=== PATIENT | male | born 1950 | race Caucasian/White ===

== ENCOUNTER 2023-05-05 13:26 | Inpatient (IN) | payer MEDICARE, BC, SELFPAY ==
[2023-05-05] VITALS (79 sets, daily range): BP systolic 131–185; BP diastolic 56–102; PULSE 58–88; RESP 1–23; TEMP 36.4–36.8; O2SAT 92–100; BMI 33.0; BMI 34.7
--- NOTE | 2023-05-05 13:44 | ECG_ITS ---
[facility] Test Date: 2023-05-05 Pat Name: Brandon Mccollum Department: Room: - Gender: Male District Representative: : 1950 Requested By: HOA BRIAN Order Number: [id number] Reading MD: HOA BRIAN Measurements Intervals [place] Rate: 76 P: 30 PA: 108 QRS: 31 QRSD: 92 T: 24 QT: 382 QTc: 413 Interpretive Statements 1100 Sinus rhythm 2210 Short PA interval 9150 abnormal ECG No previous ECG available for comparison Electronically Signed On 05-06-2023 5:52:55 EDT by HOA BRIAN
--- NOTE | 2023-05-05 13:46 | ED.CHESTPAI1 ---
HPI - Chest Pain General Chief Complaint: Chest Pain Stated Complaint: SOB CHEST PAIN Time Seen by Provider: 05/05/23 13:28 Source: patient Mode of arrival: walk-in Limitations: no limitations History of Present Illness HPI narrative: patient is a 73-year-old male who presents to the emergency department for the evaluation of left anterior chest pain and shoulder pain that began this morning. He states that he took a nitroglycerin with improvement of pain and then the pain returned hour ago, he has very little pain at this time. He denies fevers, chills, upper respiratory symptoms. He denies any pain in the back. 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 he denies any peripheral edema. He states for several weeks he has had mild exertional dyspnea. He sees Dr. Barlow for cardiology. He states he quit smoking thirty years ago. He takes medications for high blood pressure, high cholesterol, he has no history of diabetes. Risk Factors Coronary artery disease risk factors: hyperlipidemia and hypertension Related Data Home Medications Medication Instructions Recorded Confirmed amlodipine 10 mg tablet mg 05/05/23 atorvastatin 40 mg tablet mg 05/05/23 fenofibrate nanocrystallized 145 mg PO 05/05/23 mg tablet irbesartan 150 mg tablet mg 05/05/23 isosorbide mononitrate 120 mg mg PO 05/05/23 tablet,extended release 24 hr metoprolol succinate 25 mg mg PO 05/05/23 tablet,extended release 24 hr omeprazole 40 mg capsule,delayed mg 05/05/23 release oxaprozin 600 mg tablet mg 05/05/23 ranolazine 500 mg tablet,extended mg PO 05/05/23 release,12 hr Allergies Allergy/AdvReac Type Severity Reaction Status Date / Time No Known Drug Allergies Allergy Verified 05/05/23 13:38 Review of Systems ROS Constitutional Denies: fever or chills Ears, nose, mouth, and throat Denies: throat pain Cardiovascular Reports: chest pain and shortness of breath with exertion Respiratory Reports: shortness of breath; Denies: cough Gastrointestinal Denies: nausea or vomiting Musculoskeletal Denies: back pain or neck pain Integumentary/Breast Denies: rash Neurological Denies: headache Endocrine Denies: excessive urination PFSH PFSH Social History Smoking status: Former smoker Exam Narrative Exam Narrative: Gen.: Awake, alert, in no distress Head: Normocephalic, atraumatic ENT: Moist mucous membranes Respiratory: No respiratory distress, lungs clear bilaterally; chest is nontender, no rashes or color change noted of the left anterior chest or shoulder Cardio: Regular rate and rhythm Gastrointestinal: Abdomen is soft, nondistended and nontender to palpation Extremities: Moves extremities equally, no pedal edema Psych: Normal mood and affect Neuro: No focal neuro deficit Skin: Warm, dry, intact Constitutional Vital Signs, click to edit/add: Last Vital Signs Temp 98.2 F 05/05/23 13:33 Pulse 69 05/05/23 14:30 Resp 16 05/05/23 13:50 BP 177/81 H 05/05/23 13:32 Pulse Ox 99 05/05/23 14:30 O2 Del Method Room Air 05/05/23 13:33 Course Vital Signs Vital signs: Vital Signs Pulse Oximetry 100 05/05/23 13:31 Temperature 98.2 F 05/05/23 13:33 Pulse Rate 69 05/05/23 14:30 Respiratory Rate 16 05/05/23 13:50 Blood Pressure 177/81 H 05/05/23 13:32 Pulse Oximetry 99 05/05/23 14:30 Oxygen Delivery Method Room Air 05/05/23 13:33 MDM - Chest Pain MDM Narrative Medical decision making narrative: patient treated with aspirin, he had no significant chest pain in the Emergency Room. He does have risk factors of obesity, age, hyperlipidemia and hypertension. His lab studies including d-dimer, troponin and BNP are within normal limits. Chest x-ray is also unremarkable. Based on his risk factors, we will admit to ICU stepdown for cardiac rule out. Discussed with Dr. Tran for admission. Medical Records Data Attestation: I reviewed the patient's medical records. Lab Data Attestation: I reviewed the patient's lab results. Labs: Lab Results 05/05/23 Range/Units 13:38 WBC 8.5 (4.0-11.0) 10^3/uL RBC 4.41 L (4.70-6.10) 10^6/uL Hgb 12.8 L (14.0-18.0) g/dL Hct 39.2 L (42.0-54.0) % MCV 88.9 (80.0-94.0) fL MCH 29.0 (25.9-34.0) pg MCHC 32.7 (29.9-35.2) g/dL RDW 13.2 (11.0-15.0) % Plt Count 258 (150-450) 10^3/uL MPV 10.0 (9.5-13.5) fL Neut % (Auto) 54.9 (43.0-75.0) % Lymph % (Auto) 29.6 (20.5-60.0) % [place] % (Auto) 9.0 (1.7-12.0) % Eos % (Auto) 5.2 (0.9-7.0) % Baso % (Auto) 0.8 (0.2-2.0) % Neut # (Auto) 4.7 (1.4-6.5) 10^3/uL Lymph # (Auto) 2.5 (1.2-3.8) 10^3/uL [place] # (Auto) 0.8 (0.3-0.8) 10^3/uL Eos # (Auto) 0.4 (0.0-0.7) 10^3/uL Baso # (Auto) 0.1 (0.0-0.1) 10^3/uL Abs Immat Gran (auto) 0.04 H (0.00-0.03) 10^3/uL Imm/Tot Granulo (auto) 0.5 (0.0-0.5) % PT 10.1 (9.0-11.6) sec INR 0.95 APTT 22.2 L (22.3-36.2) sec D-Dimer 0.37 (<=0.59) mg/L FEU Sodium 141 (136-145) mmol/L Potassium 4.1 (3.5-5.1) mmol/L Chloride 106 (98-107) mmol/L Carbon Dioxide 27.1 (21.0-32.0) mmol/L Anion Gap 12.0 BUN 12.0 (7.0-18.0) mg/dL Creatinine 1.02 (0.70-1.30) mg/dL Est GFR ( Amer) >60 (>=60) Est GFR (Non-Af Amer) >60 (>=60) BUN/Creatinine Ratio 11.8 Glucose 121 H (74-106) mg/dL Calcium 9.1 (8.5-10.1) mg/dL Total Bilirubin 0.4 (0.2-1.0) mg/dL AST 27 (15-37) U/L ALT 35 (16-63) U/L Alkaline Phosphatase 42 L (46-116) U/L Troponin I High Sens 38.9 (4.0-76.1) pg/mL NT-Pro-B Natriuret Pep 102.0 (<=900.0) pg/mL Total Protein 7.6 (6.4-8.2) g/dL Albumin 4.1 (3.4-5.0) g/dL Globulin 3.5 g/dL Albumin/Globulin Ratio 1.2 Lipase 148.0 (73.0-393.0) U/L Imaging Data Chest x-ray: Attestation: I have reviewed the pertinent imaging results. Radiologist's impression: Procedure: XR chest 1V EXAMINATION: XR chest 1V HISTORY: Chest pain , left arm pain COMPARISON: XR chest 09/02/2022 FINDINGS: LUNGS: No significant pulmonary parenchymal abnormalities. VASCULATURE: No increased pulmonary vasculature. PLEURA: No pneumothorax, effusion, or pleural thickening. CARDIAC: No cardiomegaly or cardiac silhouette abnormality. MEDIASTINUM: No visible mass or adenopathy. BONES: Left shoulder replacement. OTHER: Negative. IMPRESSION: 1. No acute cardiopulmonary process. Electronically authenticated by: MARK ANTHONY ALMONTE Date: 05/05/2023 14:45 ECG Data Attestation: I personally reviewed and interpreted this ECG as follows: (normal sinus rhythm at a rate of seventy-six, no acute ST elevation or ectopy. EKG reviewed by attending physician) ECG interpretation date: 05/05/23 ECG interpretation time: 13:51 Heart Score History: Moderatly Suspicious ECG: Normal Age: >65 years Risk Factors: >3 Risk Factors/ HX of CAD:2 Troponin: <Normal Limit Total Heart Score Recommendations & Risks:: 5 Discharge Plan Discharge Chief Complaint: Chest Pain Clinical Impression: Chest pain Patient Disposition: Admitted as Observation Time of Disposition Decision: 14:54 Condition: Good
[2023-05-05 13:51] LABS: Basophils Absolute Auto 0.1 10^3/uL (0.0-0.1); Basophils Percent Auto 0.8 % (0.2-2.0); Eosinophils Absolute Auto 0.4 10^3/uL (0.0-0.7); Eosinophils Percent Auto 5.2 % (0.9-7.0); Hematocrit 39.2 % (42.0-54.0); Hemoglobin 12.8 g/dL (14.0-18.0); Immature Granulocytes Abs Auto 0.04 10^3/uL (0.00-0.03); Immature Granulocytes Pct Auto 0.5 % (0.0-0.5); Lymphocytes Absolute Auto 2.5 10^3/uL (1.2-3.8); Lymphocytes Percent Auto 29.6 % (20.5-60.0); Mean Corpuscular HGB Conc 32.7 g/dL (29.9-35.2); Mean Corpuscular Volume 88.9 fL (80.0-94.0); Monocytes Absolute Auto 0.8 10^3/uL (0.3-0.8); Neutrophils Absolute Auto 4.7 10^3/uL (1.4-6.5); Neutrophils Percent Auto 54.9 % (43.0-75.0); Platelet Count 258 10^3/uL (150-450); Red Blood Count 4.41 10^6/uL (4.70-6.10); Red Cell Distribution Width 13.2 % (11.0-15.0); White Blood Count 8.5 10^3/uL (4.0-11.0)
[2023-05-05] MEDS: ASPIRIN 81 MG TAB.CHEW 162 MG PO (14:02)
[2023-05-05 14:03] LABS: Alanine Aminotransferase 35 U/L (16-63); Albumin Globulin Ratio 1.2; Albumin Level 4.1 g/dL (3.4-5.0); Alkaline Phosphatase 42 U/L (46-116); Aspartate Amino Transferase 27 U/L (15-37); BUN Creatinine Ratio 11.8; Bilirubin Total 0.4 mg/dL (0.2-1.0); Calcium 9.1 mg/dL (8.5-10.1); Carbon Dioxide 27.1 mmol/L (21.0-32.0); Chloride 106 mmol/L (98-107); Estimated GFR (African America >60 (>=60); Estimated GFR (Non-African Ame >60 (>=60); Globulin 3.5 g/dL; Glucose 121 mg/dL (74-106); Potassium 4.1 mmol/L (3.5-5.1); Sodium 141 mmol/L (136-145); Total Protein 7.6 g/dL (6.4-8.2)
[2023-05-05 14:07] LABS: D Dimer 0.37 mg/L FEU (<=0.59); INR 0.95; Partial Thromboplastin Time 22.2 sec (22.3-36.2); Prothrombin Time 10.1 sec (9.0-11.6)
[2023-05-05 14:09] LABS: Troponin I High Sensitivity 38.9 pg/mL (4.0-76.1)
--- NOTE | 2023-05-05 14:14 | XR_ITS ---
The [address] [address] Patient Name: KARLA CUENCA MRN: [id number] date: 1950 Sex: M Assigned Patient Location: ER Current Patient Location: ED.MAIN Accession/Order Number: [id number] Exam Date: 05/05/2023 14:28 Report Date: 05/05/2023 14:45 At the request of: MARII STEPHEN Procedure: XR chest 1V EXAMINATION: XR chest 1V HISTORY: Chest pain , left arm pain COMPARISON: XR chest 09/02/2022 FINDINGS: LUNGS: No significant pulmonary parenchymal abnormalities. VASCULATURE: No increased pulmonary vasculature. PLEURA: No pneumothorax, effusion, or pleural thickening. CARDIAC: No cardiomegaly or cardiac silhouette abnormality. MEDIASTINUM: No visible mass or adenopathy. BONES: Left shoulder replacement. OTHER: Negative. XR/XR chest 1V IMPRESSION: 1. No acute cardiopulmonary process. Electronically authenticated by: MARK ANTHONY ALMONTE Date: 05/05/2023 14:45
--- NOTE | 2023-05-05 17:13 | CA_ITS ---
Patient: KARLA CUENCA Exam Date: 05/06/2023 : 1950 Gender:M Ordering : DR HOA BRIAN . Admission #: [id number] Family : DR BHANU VILLASENOR M.D. Order #: [id number] CLICK HERE TO VIEW EXAM ECHOCARDIOGRAM REPORT PROCEDURE: CA ECHO DOPPLER COMPLETE INDICATIONS: Dyspnea COMPARISON: None. DESCRIPTION: COMPLETE ECHOCARDIOGRAM Real-time transthoracic echocardiography with 2D, M-mode, spectral and color flow Doppler performed. QUALITY: Technical quality was good. LEFT VENTRICLE: Normal chamber size. Moderate concentric left ventricular hypertrophy. LV EF: Global left ventricular systolic function is normal. Visual estimation of left ventricular ejection fraction is 60-65% DIASTOLIC: Normal diastolic function. ATRIAL SEPTUM: Inadequately seen. LEFT ATRIUM: Moderate dilatation. RIGHT ATRIUM: Moderate dilatation. RIGHT VENTRICLE: Mild dilatation. Normal right ventricular systolic function. TRICUSPID VALVE: Normal mobility and thickness. No stenosis with mild regurgitation. Mild pulmonary hypertension. RVSP 43mmHg MITRAL VALVE: Normal mobility and thickness. No evidence of mitral valve stenosis. There is no mitral annular calcification. Trivial mitral regurgitation. AORTIC VALVE: Normal trileaflet appearance. Thickened aortic valve. Focal aortic cusp calcification. Normal leaflet mobility. No evidence of aortic valve stenosis. No aortic regurgitation. AORTIC ROOT: Normal diameter and appearance. Calcific plaque seen in the ascending aorta. PULMONIC VALVE: Normal thickness and mobility. No stenosis. No regurgitation. PERICARDIUM: Anterior free space; trivial effusion versus fat pad. IVC: Collapses with inspirations. Mildly dilated measuring 2.4cm. CONCLUSION: 1. Global left ventricular systolic function is normal; visually estimated ejection fraction is 60 to 65% 2. Moderately increased left ventricular wall thickness 3. Moderate biatrial enlargement 4. The right ventricle is mildly dilated with normal systolic function 5. Mild tricuspid regurgitation; mildly elevated right ventricular systolic pressure 6. Anterior free space; trivial effusion versus fat pad Adult Echocardiography Procedure Report Left Ventricle LVEDD (3.7 - 5.6 cm): 4.47 cm LVESD (2.2 - 4.0 cm): 2.90 cm LVIVS thickness (0.6 - 1.2 cm): 1.37 cm LVPW thickness (0.5 - 1.0 cm): 1.33 cm e': 0.10 m/s E - e': 10.55 LVOT Max Gradient: 4.17 mm[Hg] LVOT Area (cm2): 1.02 m/s Peak Velocity (LVOT): 1.02 m/s Mean Velocity (LVOT): 0.67 m/s LVOT Diameter 1.96 cm Left Atrium LA Volume Index (2D A2C): 50.88 ml/m2 Left Atrium Systolic Dimension: 4.84 cm Mitral Valve MV E to A Ratio: 0.91 Mitral Valve A-Wave Peak Velocity: 1.17 m/s Mitral Valve E-Wave Peak Velocity: 1.06 m/s Right Ventricle RV Internal Diastolic Dimension: 3.97 cm Aorta AO Root Diam: 3.50 cm Ascending Ao Diam: 3.20 cm Aortic Valve AoV Area (Peak Jabari): 1.94 cm2, 1.94 cm2 AoV Area (VTI): 2.21 cm2, 2.21 cm2 Peak Velocity(Antegrade Flow): 1.59 m/s Peak Gradient(Antegrade Flow): 10.16 mm[Hg] Mean Velocity(Antegrade Flow): 1.05 m/s Mean Gradient(Antegrade Flow): 5.04 mm[Hg] Velocity Time Integral: 36.59 cm Tricuspid Valve Peak Velocity (Regurgitant Flow): 2.24 m/s, 2.96 m/s Pulmonic Valve Mean Gradient: 4.15 mm[Hg], 4.42 mm[Hg] Mean Velocity: 0.96 m/s, 0.99 m/s Peak Velocity: 1.38 m/s Peak Gradient: 7.41 mm[Hg], 7.91 mm[Hg] Right Atrium Right Atrium Systolic Pressure: 69.85 ml, 69.85 ml Dictated by: Bhanu Villasenor M.D. on 05/06/2023 at 16:23 Approved by: Bhanu Villasenor M.D. on 05/06/2023 at 16:28
[2023-05-05 17:45] LABS: Troponin I High Sensitivity 48.5 pg/mL (4.0-76.1)
--- NOTE | 2023-05-05 18:48 | P.HP_ITS ---
H&P: HPI History of Present Illness Chief complaint: SOB, CHEST PAIN Narrative: Patient with known coronary vascular anomaly-has had episodes of chest pain and shortness of breath in the past. Cardiac cath 2 years ago was clear, he had a significant episode of this a year ago and was placed on Ranexa and the Imdur. Symptoms are currently gone. Patient was admitted for work-up and treatment of same Review of Systems ROS Status of ROS 10 or more systems reviewed and unremarkable except as noted in history and below [facility] Medical History (Updated 05/05/23 @ 16:14 by Stephanie Hand) Surgical History (Updated 05/05/23 @ 16:14 by Stephanie Hand) Family History (Updated 05/05/23 @ 16:15 by Stephanie Hand) Mother Family history of cancer Family history of hypertension Family history of diabetes mellitus Father Family history of cancer Family history of hypertension Family history of diabetes mellitus Social History (Updated 05/05/23 @ 16:16 by Stephanie Hand) Within the past year, how often did you have a drink containing alcohol: 2-4 times a month Smoking status: Former smoker Meds Home Medications and Allergies Home Medications Medication Instructions Recorded Confirmed Type amlodipine 10 mg tablet 10 mg PO QDAY 05/05/23 05/05/23 History atorvastatin 40 mg tablet 40 mg PO QDAY 05/05/23 05/05/23 History fenofibrate nanocrystallized 145 145 mg PO QDAY 05/05/23 05/05/23 History mg tablet irbesartan 150 mg tablet 150 mg PO QDAY 05/05/23 05/05/23 History isosorbide mononitrate 120 mg 120 mg PO QDAY 05/05/23 05/05/23 History tablet,extended release 24 hr metoprolol succinate 25 mg 25 mg PO QDAY 05/05/23 05/05/23 History tablet,extended release 24 hr omeprazole 40 mg capsule,delayed 40 mg PO QDAY 05/05/23 05/05/23 History release oxaprozin 600 mg tablet 600 mg PO BID 05/05/23 05/05/23 History ranolazine 500 mg tablet,extended 500 mg PO Q12H 05/05/23 05/05/23 History release,12 hr Allergies Allergy/AdvReac Type Severity Reaction Status Date / Time No Known Drug Allergies Allergy Verified 05/05/23 13:38 Exam Constitutional Vital Signs, click to edit/add: Last Vital Signs Temp 98.2 F 05/05/23 13:33 Pulse 74 05/05/23 17:36 Resp 21 05/05/23 16:20 BP 162/102 H 05/05/23 16:18 Pulse Ox 98 05/05/23 15:57 O2 Del Method Room Air 05/05/23 17:12 Documenting provider has reviewed patient's vital signs: yes Common normals: no apparent distress Respiratory Common normals: normal respiratory effort, no retractions and no use of accessor y muscles Cardio Common normals: regular rate, regular rhythm and no murmurs GI Common normals: Normal to inspection, nondistended, normoactive bowel sounds present, soft to palpation, non-tender and no masses Results Labs Labs: Short CBC 05/05/23 Range/Units 13:38 WBC 8.5 (4.0-11.0) 10^3/uL Hgb 12.8 L (14.0-18.0) g/dL Hct 39.2 L (42.0-54.0) % Plt Count 258 (150-450) 10^3/uL BMP 05/05/23 13:38 Sodium 141 Potassium 4.1 Chloride 106 Carbon Dioxide 27.1 BUN 12.0 Creatinine 1.02 Glucose 121 H Calcium 9.1 Liver Function 05/05/23 Range/Units 13:38 Total Bilirubin 0.4 (0.2-1.0) mg/dL AST 27 (15-37) U/L ALT 35 (16-63) U/L Alkaline Phosphatase 42 L (46-116) U/L Albumin 4.1 (3.4-5.0) g/dL Assessment and Plan Assessment and Plan (1) Chest pain: (2) High cholesterol: (3) HTN (hypertension): (4) Sleep apnea: Plan Controlled hypertension, chest pain, pressure type, similar to when he has had his flareup of his vascular anomaly. Plan was to increase Ranexa at that time and if it happens again. As well increase Ranexa to 1000 mg p.o. twice daily continue with home medications. Check echocardiogram, check with cardiology in a.m. pending troponin results. Hypercholesterolemia-continue with home medications Hypertension-continue home medications, increase metoprolol succinate to try to improve angina GERD-continue with home medications Patient currently in observation status, pending outcome of troponins and plan from cardiology will remain so for tonight possible change in a.m.
[2023-05-05] MEDS: PANTOPRAZOLE SODIUM 40 MG VIAL IV (20:59)
[2023-05-05] MEDS: RANOLAZINE 500 MG TAB.ER.12H 1000 MG PO (20:59)
[2023-05-05] MEDS: DIPHENHYDRAMINE HCL 25 MG CAPSULE PO (21:02)
[2023-05-05] MEDS: ACETAMINOPHEN 500 MG TABLET 1000 MG PO (21:02)
[2023-05-05] MEDS: HYDRALAZINE HCL 20 MG/ML VIAL 10 MG IVP (22:07)
[2023-05-05] MEDS: NITROGLYCERIN 0.4 MG BOTTLE PO (22:32)
[2023-05-06] VITALS (123 sets, daily range): BP systolic 122–188; BP diastolic 68–92; PULSE 54–80; RESP 0–42; TEMP 36.3–36.7; O2SAT 96–99
[2023-05-06 05:42] LABS: Basophils Absolute Auto 0.1 10^3/uL (0.0-0.1); Basophils Percent Auto 0.8 % (0.2-2.0); Eosinophils Absolute Auto 0.5 10^3/uL (0.0-0.7); Eosinophils Percent Auto 5.6 % (0.9-7.0); Hematocrit 35.8 % (42.0-54.0); Hemoglobin 11.5 g/dL (14.0-18.0); Immature Granulocytes Abs Auto 0.06 10^3/uL (0.00-0.03); Immature Granulocytes Pct Auto 0.7 % (0.0-0.5); Lymphocytes Absolute Auto 2.6 10^3/uL (1.2-3.8); Lymphocytes Percent Auto 30.8 % (20.5-60.0); Mean Corpuscular HGB Conc 32.1 g/dL (29.9-35.2); Mean Corpuscular Hemoglobin 28.9 pg (25.9-34.0); Mean Corpuscular Volume 89.9 fL (80.0-94.0); Monocytes Absolute Auto 0.8 10^3/uL (0.3-0.8); Monocytes Percent Auto 9.8 % (1.7-12.0); Neutrophils Absolute Auto 4.4 10^3/uL (1.4-6.5); Neutrophils Percent Auto 52.3 % (43.0-75.0); Platelet Count 236 10^3/uL (150-450); Red Blood Count 3.98 10^6/uL (4.70-6.10); Red Cell Distribution Width 13.1 % (11.0-15.0); White Blood Count 8.4 10^3/uL (4.0-11.0)
[2023-05-06 06:12] LABS: Anion Gap 11.4; BUN Creatinine Ratio 11.9; Calcium 8.5 mg/dL (8.5-10.1); Carbon Dioxide 26.5 mmol/L (21.0-32.0); Chloride 108 mmol/L (98-107); Estimated GFR (African America >60 (>=60); Estimated GFR (Non-African Ame >60 (>=60); Glucose 112 mg/dL (74-106); Potassium 3.9 mmol/L (3.5-5.1); Sodium 142 mmol/L (136-145)
[2023-05-06] MEDS: OMEPRAZOLE 40 MG CAPSULE.DR PO (06:34)
--- NOTE | 2023-05-06 07:40 | P.PN_ITS ---
Progress Note: Subjective Subjective Interval history: Patient did have another episode of chest pain that was resolved with sublingual nitroglycerin, but that was only couple hours after the increased dose of the Ranexa Exam Constitutional Vital Signs, click to edit/add: Last Vital Signs Temp 97.4 F L 05/06/23 07:38 Pulse 57 L 05/06/23 06:04 Resp 18 05/06/23 04:12 BP 150/77 H 05/06/23 04:12 Pulse Ox 99 05/06/23 04:12 O2 Del Method Room Air 05/05/23 20:22 Documenting provider has reviewed patient's vital signs: yes Common normals: no apparent distress Respiratory Common normals: normal respiratory effort, no retractions and no use of accessory muscles Cardio Common normals: regular rate, regular rhythm and no murmurs GI Common normals: Normal to inspection, nondistended, normoactive bowel sounds present, soft to palpation, non-tender and no masses Progress Note: Objective Labs Labs: Short CBC 05/05/23 05/06/23 Range/Units 13:38 05:15 WBC 8.5 8.4 (4.0-11.0) 10^3/uL Hgb 12.8 L 11.5 L (14.0-18.0) g/dL Hct 39.2 L 35.8 L (42.0-54.0) % Plt Count 258 236 (150-450) 10^3/uL BMP 05/05/23 05/06/23 13:38 05:15 Sodium 141 142 Potassium 4.1 3.9 Chloride 106 108 H Carbon Dioxide 27.1 26.5 BUN 12.0 14.0 Creatinine 1.02 1.18 Glucose 121 H 112 H Calcium 9.1 8.5 Liver Function 05/05/23 Range/Units 13:38 Total Bilirubin 0.4 (0.2-1.0) mg/dL AST 27 (15-37) U/L ALT 35 (16-63) U/L Alkaline Phosphatase 42 L (46-116) U/L Albumin 4.1 (3.4-5.0) g/dL Progress Note: A&P Assessment and Plan (1) Chest pain: (2) High cholesterol: (3) HTN (hypertension): (4) Sleep apnea: Plan Uncontrolled hypertension, chest pain, pressure type, similar to when he has had his flareup of his vascular anomaly. Increased Ranexa and metoprolol, already on maximum dose Imdur, will discuss with cardiology, either maintain here 1 additional day versus transfer for heart cath, patient will need inpatient status if staying here an additional day, Hypercholesterolemia-continue with home medications Hypertension-continue home medications, increase metoprolol succinate to try to improve angina GERD-continue with home medications Patient currently in observation status, pending outcome of troponins and plan from cardiology will remain so for tonight possible change in a.m.
[2023-05-06] MEDS: RANOLAZINE 500 MG TAB.ER.12H 1000 MG PO ×2 (09:08→20:15)
[2023-05-06] MEDS: FENOFIBRATE 54 MG TABLET 162 MG PO (09:08)
[2023-05-06] MEDS: NEOMYCIN/POLYMYXIN B/HYDROCORTISONE OTIC SUSP 200 DROP/10 ML BOTTLE EAR-LEFT ×4 (09:09→21:07)
[2023-05-06] MEDS: LOSARTAN POTASSIUM 50 MG TABLET PO ×2 (09:09→20:15)
[2023-05-06] MEDS: METOPROLOL SUCCINATE 50 MG TAB.ER.24H PO (09:09)
[2023-05-06] MEDS: ISOSORBIDE MONONITRATE 60 MG TAB.ER.24H 120 MG PO (09:09)
[2023-05-06] MEDS: AMLODIPINE BESYLATE 5 MG TABLET 10 MG PO (09:09)
--- NOTE | 2023-05-06 14:22 | SWNOTE1 ---
SW met with pt to discuss dc needs. Pt lives at home with his . Pt was sitting in chair and dressed. Pt is independent and does not use any DME at home. Pt voiced no needs at discharge at this time. SW to follow as needed. THONY did review IMM form with pt, pt voiced understanding, no questions at this time. Pt signed form, copy placed in chart and original given to pt.
[2023-05-06] MEDS: PANTOPRAZOLE SODIUM 40 MG VIAL IV (20:15)
[2023-05-06] MEDS: ATORVASTATIN CALCIUM 40 MG TABLET PO (20:15)
[2023-05-06] MEDS: DIPHENHYDRAMINE HCL 25 MG CAPSULE PO (21:05)
[2023-05-06] MEDS: ACETAMINOPHEN 500 MG TABLET 1000 MG PO (21:05)
[2023-05-07] VITALS (51 sets, daily range): BP systolic 97–147; BP diastolic 49–80; PULSE 52–90; RESP 0–23; TEMP 36.7; O2SAT 98–99
[2023-05-07 05:21] LABS: Basophils Absolute Auto 0.1 10^3/uL (0.0-0.1); Basophils Percent Auto 0.8 % (0.2-2.0); Eosinophils Absolute Auto 0.5 10^3/uL (0.0-0.7); Hematocrit 33.9 % (42.0-54.0); Hemoglobin 10.9 g/dL (14.0-18.0); Immature Granulocytes Abs Auto 0.07 10^3/uL (0.00-0.03); Immature Granulocytes Pct Auto 0.7 % (0.0-0.5); Lymphocytes Absolute Auto 3.1 10^3/uL (1.2-3.8); Lymphocytes Percent Auto 32.1 % (20.5-60.0); Mean Corpuscular HGB Conc 32.2 g/dL (29.9-35.2); Mean Corpuscular Volume 90.2 fL (80.0-94.0); Mean Platelet Volume 10.2 fL (9.5-13.5); Monocytes Absolute Auto 0.9 10^3/uL (0.3-0.8); Monocytes Percent Auto 8.9 % (1.7-12.0); Neutrophils Absolute Auto 5.1 10^3/uL (1.4-6.5); Neutrophils Percent Auto 52.5 % (43.0-75.0); Platelet Count 236 10^3/uL (150-450); Red Blood Count 3.76 10^6/uL (4.70-6.10); Red Cell Distribution Width 13.2 % (11.0-15.0); White Blood Count 9.7 10^3/uL (4.0-11.0)
[2023-05-07 05:54] LABS: Anion Gap 12.5; BUN Creatinine Ratio 13.3; Calcium 8.3 mg/dL (8.5-10.1); Carbon Dioxide 25.5 mmol/L (21.0-32.0); Chloride 106 mmol/L (98-107); Estimated GFR (African America >60 (>=60); Estimated GFR (Non-African Ame 52 (>=60); Glucose 109 mg/dL (74-106); Sodium 140 mmol/L (136-145)
--- NOTE | 2023-05-07 07:52 | P.DS_ITS ---
DS: Providers Provider Date of admission: 05/05/23 15:47 Primary care physician: Carlo Tran MD Consults: 05/05/23 17:13 Consult to Cardiology Routine Consulting Provider: Willy Villasenor Reason for consultation: cp Has provider been notified: No DS: Diagnosis Discharge Diagnosis (1) Chest pain: (2) High cholesterol: (3) HTN (hypertension): (4) Sleep apnea: Plan Uncontrolled hypertension, chest pain, pressure type, similar to when he has had his flareup of his vascular anomaly. Increased Ranexa and metoprolol, already on maximum dose Imdur, will discuss with cardiology, either maintain here 1 additional day versus transfer for heart cath, patient will need inpatient status if staying here an additional day, Hypercholesterolemia-continue with home medications Hypertension-continue home medications, increase metoprolol succinate to try to improve angina GERD-continue with home medications DS: Summary Hospital Course Hospital Course: Patient with chest pain. 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 He had a heart catheter essentially clear 2 years ago. Case was discussed with cardiology and was recommended to change his Ranexa and increased his metoprolol. Patient still having minor episodes of chest pain. Again case discussed with cardiology was comfortable with discharge and follow-up as an outpatient. Patient being stable will be discharged home in improving condition. Medications see list. Follow-up with me in the office wit mikhail the next week and cardiology within 1 to 2 weeks Time Spent with Patient Time attestation: Total time spent providing and/or coordinating discharge services: Quality: Stroke Symptom Onset Unknown: No Exam Constitutional Vital Signs, click to edit/add: Last Vital Signs Temp 98.0 F 05/07/23 01:10 Pulse 55 L 05/07/23 07:00 Resp 16 05/07/23 01:10 BP 105/63 05/07/23 01:10 Pulse Ox 98 05/07/23 01:10 O2 Del Method Room Air 05/07/23 01:10 Documenting provider has reviewed patient's vital signs: yes Common normals: no apparent distress Respiratory Common normals: normal respiratory effort, no retractions and no use of accessory muscles Cardio Common normals: regular rate, regular rhythm and no murmurs GI Common normals: Normal to inspection, nondistended, normoactive bowel sounds present, soft to palpation, non-tender and no masses DS: Data Data Completed and Pending Labs on day of discharge: Labs from last 24 hours 05/07/23 05:08 WBC 9.7 RBC 3.76 L Hgb 10.9 L Hct 33.9 L MCV 90.2 MCH 29.0 MCHC 32.2 RDW 13.2 Plt Count 236 MPV 10.2 Neut % (Auto) 52.5 Lymph % (Auto) 32.1 [place] % (Auto) 8.9 Eos % (Auto) 5.0 Baso % (Auto) 0.8 Neut # (Auto) 5.1 Lymph # (Auto) 3.1 [place] # (Auto) 0.9 H Eos # (Auto) 0.5 Baso # (Auto) 0.1 Abs Immat Gran (auto) 0.07 H Imm/Tot Granulo (auto) 0.7 H Sodium 140 Potassium 4.0 Chloride 106 Carbon Dioxide 25.5 Anion Gap 12.5 BUN 18.0 Creatinine 1.35 H Est GFR ( Amer) >60 Est GFR (Non-Af Amer) 52 L BUN/Creatinine Ratio 13.3 Glucose 109 H Calcium 8.3 L NT-Pro-B Natriuret Pep 93.0 Discharge Plan Discharge Disposition: Home, Self-Care Condition: Good Discharge Medications: New metoprolol succinate 50 mg Tablet Extended Release 24 Hr 50 mg PO QD Qty: 30 11RF ranolazine 1,000 mg tablet extended release 12 hr 1,000 mg PO Q12H Qty: 60 11RF nitroglycerin [Nitrostat] 0.4 mg tablet, sublingual 0.4 mg sublingual Q5M MDD 3 PRN (Reason: chest pain) Qty: 20 11RF Rx Instructions: do not exceed 3 doses per episode Continued atorvastatin 40 mg tablet 40 mg PO QDAY omeprazole 40 mg capsule,delayed release(DR/EC) 40 mg PO QDAY isosorbide mononitrate 120 mg tablet extended release 24 hr 120 mg PO QDAY irbesartan 150 mg tablet 150 mg PO QDAY oxaprozin 600 mg tablet 600 mg PO BID fenofibrate nanocrystallized 145 mg tablet 145 mg PO QDAY amlodipine 10 mg tablet 10 mg PO QDAY Discontinued metoprolol succinate 25 mg tablet extended release 24 hr 25 mg PO QDAY ranolazine 500 mg tablet extended release 12 hr 500 mg PO Q12H Activity: resume usual activities as tolerated Diet: advance to your usual diet Print Language: Cypriot Patient Instructions: Metoprolol (By mouth), Ranolazine (By mouth), Chest Pain (GEN) Forms: Portal Instructions Follow Up Appointments: Dr Tran May 14 2023 @0915 Discharge Date/Time: 05/07/23 08:35
[2023-05-07] MEDS: ISOSORBIDE MONONITRATE 60 MG TAB.ER.24H 120 MG PO (08:00)
[2023-05-07] MEDS: METOPROLOL SUCCINATE 50 MG TAB.ER.24H PO (08:01)
[2023-05-07] MEDS: FENOFIBRATE 54 MG TABLET 162 MG PO (08:01)
[2023-05-07] MEDS: LOSARTAN POTASSIUM 50 MG TABLET PO (08:01)
[2023-05-07] MEDS: RANOLAZINE 500 MG TAB.ER.12H 1000 MG PO (08:01)
[2023-05-07] MEDS: AMLODIPINE BESYLATE 5 MG TABLET 10 MG PO (08:02)
--- NOTE | 2023-05-10 14:50 | CM.DCFOLLOWU ---
1st attempt discharge follow up call made by Key Harper on 05/10/23, no answer at this time
--- NOTE | 2023-05-11 15:40 | CM.DCFOLLOWU ---
Person spoke with: patient How are you feeling? well How is your pain? no pain, some yesterday but called Dr. Tran and he advised to continue meds Did you understand your discharge instructions? yes Do you have any questions about your discharge instructions? no Were you given any prescriptions at discharge? yes Were you able to get your prescriptions filled? yes Do you understand how to take your medications as ordered? yes Do you have any questions about your follow up appointment and do you plan to keep your follow up appointment? no questions, follow up is Wednesday Is there anything else that you would like to discuss? no Questions/Comments/Concerns/Other:
== END 2023-05-07 08:35 | disposition home or self-care (01) | DRG 307 ==
LOC: ER 14:54 → ICU 15:51
PROVIDERS: Physician Assistant; Admitting Provider Family Medicine; Emergency Provider Emergency Medicine; PCP Family Medicine; Visit Provider Family Medicine
DX: Q24.5 Malformation of coronary vessels (principal); I20.0 Unstable angina; E78.00 Pure hypercholesterolemia, unspecified; I10 Essential (primary) hypertension; K21.9 Gastro-esophageal reflux disease without esophagitis; E66.9 Obesity, unspecified; Z79.899 Other long term (current) drug therapy; Z83.3 Family history of diabetes mellitus; Z82.49 Family history of ischemic heart disease and other diseases of the circulatory system; Z87.891 Personal history of nicotine dependence; Z68.34 Body mass index [BMI] 34.0-34.9, adult
CPT/HCPCS: 36415; 71045; 80048; 80053; 83690; 83880; 84484; 85025; 85378; 85610; 85730; 93005; 93306; 94667; 94668; 94761; 96374; 96375; 96376; 99285

== ENCOUNTER 2023-05-15 07:45 | Outpatient (OUT) | payer MEDICARE, BC, SELFPAY ==
[2023-05-15 08:10] LABS: Estimated Average Glucose 120 mg/dL; Glycohemoglobin A1C 5.8 % (4.5-6.2)
[2023-05-15 09:02] LABS: Prostate Specific Antigen Scrn 0.91 ng/mL (<=4.00)
[2023-05-15 11:17] LABS: Chol HDL Ratio 3.9; Cholesterol 155 mg/dL (<=200); Free T3 2.35 pg/mL (2.18-3.98); HDL Cholesterol 40 mg/dL (40-60); LDL Cholesterol Calculated 85.2 mg/dL; Thyroid Stimulating Hormone 3.798 uIU/mL (0.358-3.740); Triglycerides 149 mg/dL (<=150); VLDL CHOLESTEROL 29.8 mg/dL
== END 2023-05-15 07:46 | disposition home or self-care (01) ==
PROVIDERS: PCP Family Medicine; Visit Provider Family Medicine
DX: E78.5 Hyperlipidemia, unspecified (principal); R73.09 Other abnormal glucose; Z12.5 Encounter for screening for malignant neoplasm of prostate; I20.1 Angina pectoris with documented spasm; D50.9 Iron deficiency anemia, unspecified; I10 Essential (primary) hypertension
CPT/HCPCS: 36415; 80061; 83036; 84436; 84443; 84481; G0103

== ENCOUNTER 2023-06-16 06:54 | Outpatient (OUT) | payer MEDICARE, BC, SELFPAY ==
[2023-06-16 07:57] LABS: Free T3 2.27 pg/mL (2.18-3.98); Thyroid Stimulating Hormone 3.472 uIU/mL (0.358-3.740)
== END 2023-06-16 06:55 | disposition home or self-care (01) ==
LOC: LAB 06:56
PROVIDERS: PCP Family Medicine; Visit Provider Family Medicine
DX: R79.89 Other specified abnormal findings of blood chemistry (principal)
CPT/HCPCS: 36415; 84436; 84443; 84481

== ENCOUNTER 2023-12-03 10:59 | Outpatient (OUT) | payer MEDICARE, BC, SELFPAY ==
--- NOTE | 2023-12-03 11:04 | US_ITS ---
The [address] [address] Patient Name: KARLA CUENCA MRN: [id number] date: 1950 Sex: M Assigned Patient Location: [place] Current Patient Location: Accession/Order Number: [id number] Exam Date: 12/03/2023 11:05 Report Date: 12/05/2023 05:17 At the request of: HOA BRIAN Procedure: US thyroid EXAMINATION: US thyroid HISTORY: Neck Mass R22.1 COMPARISON: No relevant comparison available. FINDINGS: RIGHT LOBE: Heterogeneous echotexture containing a 11 mm TR 5 nodule within inferior pole. Lobe size: 5.1 x 2.0 x 1.5 cm. LEFT LOBE: Heterogeneous echotexture containing multiple small nodules, most notable to consist of a 12 mm TR 4 nodule within inferior pole and a 5 mm TR 4 nodule within mid body. Lobe size: 4.3 x 2.0 x 1.6 cm ISTHMUS: Heterogeneous and mildly thickened. Thickness: 4 mm OTHER: Oval, slightly geographic shaped lesion within upper left neck/submental area corresponding to patient's palpable lump, 1.9 x 1.0 x 0.8 cm. No appreciable internal blood flow on color Doppler. US/US thyroid IMPRESSION: 1. Nonspecific 1.9 cm lesion within upper left neck/submental area corresponding to patient's palpable lump. Consider ultrasound-guided fine-needle aspiration. 2. Within right thyroid lobe is 11 mm TR 5 nodule. Ultrasound-guided tissue sampling is recommended. TR5 (highly suspicious): > 0.5 cm annual ultrasound follow-up for up to 5 years. > 1.0 cm FNA. Electronically authenticated by: MARK ANTHONY ALMONTE Date: 12/05/2023 05:17
== END 2023-12-03 11:00 | disposition home or self-care (01) ==
LOC: US 10:59
PROVIDERS: PCP Family Medicine; Visit Provider Family Medicine
DX: R22.1 Localized swelling, mass and lump, neck (principal)
CPT/HCPCS: 76536

== ENCOUNTER 2023-12-15 08:58 | Day surgery (SDC) | payer MEDICARE, BC, SELFPAY ==
--- NOTE | 2023-12-15 09:07 | US_ITS ---
The [address] [address] Patient Name: KARLA CUENCA MRN: [id number] date: 1950 Sex: M Assigned Patient Location: US Current Patient Location: US Accession/Order Number: [id number] Exam Date: 12/15/2023 09:08 Report Date: 12/15/2023 11:13 At the request of: HOA BRIAN Procedure: US biopsy thyroid EXAMINATION: US biopsy thyroid, US biopsy FNA add lesion HISTORY: Thyroid Nodule , submandibular mass COMPARISON: No relevant comparison available. TECHNIQUE: After obtaining informed consent, an ultrasound-guided biopsy was performed in the usual sterile manner. RIGHT THYROID NODULE FINDINGS: IMAGING: Ultrasound BIOPSY NEEDLE: 2 inch 25-gauge SPECIMEN TYPE, #, LOCATION: Unsuccessful, right thyroid nodule MEDICATION: 4 cc 1% buffered lidocaine COMPLICATIONS: None. LABORATORY: Not sent OTHER: This is an unsuccessful biopsy due to a combination of the targeted nodule being very deep along the posterior margin of the thyroid gland, proximity of the right carotid artery adjacent to the targeted nodule and patient breathing and swallowing resulting in significant movement. Multiple attempts were made without success, eventually the procedure was terminated to prevent laceration to the adjacent carotid artery. MIDLINE SUBMANDIBULAR MASS: FINDINGS: IMAGING: Ultrasound BIOPSY NEEDLE: 2 inch, 25-gauge SPECIMEN TYPE, #, LOCATION: 3 fine-needle aspirates, submandibular mass MEDICATION: 2 cc 1% buffered lidocaine COMPLICATIONS: None. LABORATORY: Samples were sent for pathology OTHER: Negative. US/US biopsy thyroid IMPRESSION: 1. Unsuccessful biopsy of a right thyroid nodule as detailed above. This lesion is not amenable to ultrasound-guided biopsy. 6 month follow-up ultrasound is recommended to the patient to ensure stability 2. Technically successful fine-needle aspiration of a submandibular mass Electronically authenticated by: BISMARK REDD Date: 12/15/2023 11:13
[2023-12-15 09:30] VITALS: BP 154/80; PULSE 74; O2SAT 98
--- NOTE | 2023-12-15 10:00 | US_ITS ---
The [address] [address] Patient Name: KARLA CUENCA MRN: [id number] date: 1950 Sex: M Assigned Patient Location: US Current Patient Location: US Accession/Order Number: [id number] Exam Date: 12/15/2023 09:08 Report Date: 12/15/2023 11:13 At the request of: HOA BRIAN Procedure: US biopsy FNA add lesion EXAMINATION: US biopsy thyroid, US biopsy FNA add lesion HISTORY: Thyroid Nodule , submandibular mass COMPARISON: No relevant comparison available. TECHNIQUE: After obtaining informed consent, an ultrasound-guided biopsy was performed in the usual sterile manner. RIGHT THYROID NODULE FINDINGS: IMAGING: Ultrasound BIOPSY NEEDLE: 2 inch 25-gauge SPECIMEN TYPE, #, LOCATION: Unsuccessful, right thyroid nodule MEDICATION: 4 cc 1% buffered lidocaine COMPLICATIONS: None. LABORATORY: Not sent OTHER: This is an unsuccessful biopsy due to a combination of the targeted nodule being very deep along the posterior margin of the thyroid gland, proximity of the right carotid artery adjacent to the targeted nodule and patient breathing and swallowing resulting in significant movement. Multiple attempts were made without success, eventually the procedure was terminated to prevent laceration to the adjacent carotid artery. MIDLINE SUBMANDIBULAR MASS: FINDINGS: IMAGING: Ultrasound BIOPSY NEEDLE: 2 inch, 25-gauge SPECIMEN TYPE, #, LOCATION: 3 fine-needle aspirates, submandibular mass MEDICATION: 2 cc 1% buffered lidocaine COMPLICATIONS: None. LABORATORY: Samples were sent for pathology OTHER: Negative. US/US biopsy FNA add lesion IMPRESSION: 1. Unsuccessful biopsy of a right thyroid nodule as detailed above. This lesion is not amenable to ultrasound-guided biopsy. 6 month follow-up ultrasound is recommended to the patient to ensure stability 2. Technically successful fine-needle aspiration of a submandibular mass Electronically authenticated by: BISMARK REDD Date: 12/15/2023 11:13
[2023-12-15] MEDS: LIDOCAINE HCL 10 ML, SODIUM BICARBONATE 1 MEQ INJ (10:15)
--- NOTE | 2023-12-15 11:26 | SUR.PREOP ---
12/09/23 Pt instructed on procedure, date, time,and prep. Pt made aware to hold Aspirin for 5 days prior to biopsy.
== END 2023-12-15 10:55 | disposition home or self-care (01) ==
LOC: US 08:59
PROVIDERS: Radiology Diagnostic Radiology; PCP Family Medicine; Visit Provider Family Medicine
DX: E04.1 Nontoxic single thyroid nodule (principal); R22.1 Localized swelling, mass and lump, neck
CPT/HCPCS: 10005; 10006; 88112

== ENCOUNTER 2023-12-16 06:32 | Outpatient (OUT) | payer MEDICARE, BC, SELFPAY ==
--- OUTSIDE RECORDS SUMMARY | 2023-12-16 06:35 | XMS_ITS | CCD ---
Author Organization [facility] Care Team Providers Care Pipefitter Name Role Phone HOA TRAN Primary Care Unavailable UNKNOWN, PROVIDER Referring Unavailable GRISELDA, HANI Admitting Unavailable GRISELDA, BOBBII Attending Unavailable [place] Procedure Practitioner Unavailab le UNKNOWN, PROVIDER Surgeon Unavailable SNEHAL ., DR CAMARA Primary Care Unavailable DIAB ., KWADWO Admitting Unavailable DIAB ., KWADWO Attending Unavailable Bismark Redd Consulting Unavailable DIAB ., KWADWO Consulting Unavailable MOUKARBEL, DR QUINTEROS Admitting Unavailable MOUKARBEL, DR QUINTEROS Attending Unavailable HOY ., DR CAMARA Primary Care Unavailable MOUKARBEL, DR QUINTEROS Consulting Unavailable HOY ., DR CAMARA Admitting Unavailable HOY ., DR CAMARA Attending Unavailable HOY ., DR CAMARA Primary Care Unavailable HOY ., DR CAMARA Consulting Unavailable Bismark [employer]d Consulting Unavailable MOUKAKELLY, NELI Attending Unavailable BRANDON MICHAEL Attending Unavailable MOUKARBEL, NELI Attending Unavailable KAMRAN GUILLEN Attending Unavailable Problems Active Problems Problem Classification Problem Date Documented Date Episodic/Chronic 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; 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] Onset: 11-23-2022 Chronic Coronary atherosclerosis and other heart disease (5 sources) Coronary atherosclerosis due to lipid rich plaque; Translations: [Angina pectoris with documented spasm] Onset: 12-18-2021 Chronic Disorders of lipid metabolism (7 sources) Mixed hyperlipidemia; Translations: [Pure hypercholesterolemia, unspecified] Onset: 09-03-2022 Chronic Esophageal disorders (1 source) Gastro-esophageal reflux disease without esophagitis; Translations: [GERD WITHOUT ESOPHAGITIS] Onset: 09-03-2022 Chronic Essential hypertension (3 sources) Essential (primary) hypertension; Translations: [ESSENTIAL PRIMARY HYPERTENSION] Onset: 09-03-2022 Chronic Other aftercare (1 source) manager terminal (current) use of aspirin; Translations: [DETENTION CURRENT USE OF ASPIRIN] Onset: 09-03-2022 Episodic Other aftercare (1 source) Other intermediate (current) drug therapy; Translations: [OTH BIZTALK CONSULTANT CURRENT DRUG THERAPY] Onset: 09-03-2022 Episodic Residual codes; unclassified (1 source) Sleep apnea, unspecified; Translations: [SLEEP APNEA UNSPECIFIED] Onset: 09-03-2022 Chronic Residual codes; unclassified (1 source) Acquired absence of other specified parts of digestive tract; Translations: [ACQ ABSENCE OTH PART DIGESTV TRACT] Onset: 09-03-2022 Episodic Unclassified (1 source) CONTACT W/AND (SUSP) EXPOS COVID-19; Translations: [CONTACT W/AND (SUSP) EXPOS COVID-19] Onset: 09-03-2022 Unclassified (2 sources) ED f/u chest pain Onset: 09-04-2022 Past or Other Problems Problem Classification Problem Date Documented Da te Episodic/Chronic Nonspecific chest pain (6 sources) Chest pain, unspecified; Translations: [Other chest pain] Onset: 09-02-2022 Episodic Other lower respiratory disease (4 sources) Dyspnea, unspecified; Translations: [DYSPNEA UNSPECIFIED] Onset: 12-17-2021 Episodic Results Test Name Value Interpretation Reference Range Facility Office Visiton 06-18-2023 Follow-up visit [id number] aKrla Mccollum 1950 M Date Provider Department Center 06/18/2023 NELI THRASHER VERA Antony Family History Problem Relation Age of Onset Hypertension Mother Family Status - Relation Status Age at Mother Level of Service:24134 [place] OFFICE/OUTPATIENT ESTABLISHED MOD MDM 30-39 MIN Normal [facility] Orders Onlyon 12-01-2022 Orders Only [id number] Karla Mccollum 1950 M Date Provider Department Center 12/01/2022 JAIME QUINTANA VERA Antony Family History Problem Relation Age of Onset Hypertension Mother Family Status - Relation Status Age at Mother Normal [facility] LIPID PROFILEon 11-24-2022 CHOL-HDL RATIO NORM SEE BELOW [facility] Comment on above: Result Comment: 3.3 - 4.4 LOW RISK 4.4 - 7.1 AVERAGE RISK 7.1 - 11.0 MODERATE RISK >11.0 HIGH RISK Performed By: #### L IPID #### [facility] [address] [address] [address] Paige Tee Cholesterol [Mass/Vol] 151 mg/dL Normal <=200 [facility] Comment on above: Performed By: #### L IPID #### [facility] [address] [address] [address] Paige Tee Cholesterol in HDL [Mass/Vol] 40 mg/dL Normal 40-60 [facility] Comment on above: Performed By: #### L IPID #### [facility] [address] [address] [address] Paige Tee Cholesterol in LDL [Mass/Vol] 87.4 mg/dL Normal [facility] Comment on above: Performed By: #### L IPID #### [facility] [address] [address] [address] Paige Tee Cholesterol.total/C holesterol in HDL [Mass ratio] 3.8 {ratio} Normal [facility] Comment on above: Performed By: #### L IPID #### [facility] [address] [address] [address] Paige Tee HDL NORMAL > or = 60 mg/dl - LO W CARDIOVASCULAR RISK <40 mg/dl - HIGH CARDIOVASCULAR RISK Normal [facility] Comment on above: Performed By: #### L IPID #### [facility] [address] [address] [address] Paige Tee LDL CALC NORMAL SEE BELOW Normal [facility] Comment on above: Result Comment: <100 mg/dl OPTIMAL 100 - 129 mg/dl NEAR OR ABOVE OPTIMAL 130 - 159 mg/dl BORDERLINE HIGH 160 - 189 mg/dl HIGH >190 mg/dl VERY HIGH Performed By: #### L IPID #### [facility] [address] [address] [address] Paige Tee Triglyceride [Mass/Vol] 118 mg/dL Normal <=150 [facility] Comment on above: Performed By: #### L IPID #### [facility] [address] [address] [address] Paige Tee VLDL CALC 23.6 mg/dL Normal [facility] Comment on above: Performed By: #### L IPID #### [facility] [address] [place] [address] Dr. Paige Tee Office Visiton 11-23-2022 Follow-up visit [id number] Karla Mccollum 1950 M Date Provider Department Center 11/23/2022 NELI THRASHER CARD [facility] Family History Problem Relation Age of Onset Hypertension Mother Family Status - Relation Status Age at Mother Level of Service:35238 [place] OFFICE/OUTPATIENT ESTABLISHED MOD MDM 30-39 MIN Reason for Visit and Comments: Chest Pain [819646] Coronary Artery Disease [187] Normal [facility] Office Visiton 09-04-2022 Follow-up visit [id number] Karla Mccollum 1950 M Date Provider Department Center 09/04/2022 BRANDON ALICEA CARD [facility] No family history on file Level of Service:52948 [place] OFFICE/OUTPATIENT ESTABLISHED MOD MDM 30-39 MIN Reason for Visit and Comments: ED f/u chest pain [Other] Chest Pain [218211] Normal [facility] CBC AUTO DIFFon 09-02-2022 BASO # 0.1 103/ul Normal 0.0-0.1 [facility] Comment on above: Performed By: #### C BC #### [facility] [address] [place] [address] Dr. Paige Tee Basophils/100 WBC (Bld) 0.6 % Normal 0.2-2.0 [facility] Comment on above: Performed By: #### C BC #### [facility] [address] [place] [address] Dr. Paige Tee EO # 0.4 103/ul Normal 0.0-0.7 [facility] Comment on above: Performed By: #### C BC #### [facility] [address] [place] [address] Dr. Paige Tee Eosinophils/100 WBC (Bld) 4.0 % Normal 0.9-7.0 [facility] Comment on above: Performed By: #### C BC #### [facility] [address] [place] [address] Dr. Paige Tee Erythrocyte distribution width (RBC) [Ratio] 13.8 % Normal 11.0-15.0 [facility] Comment on above: Performed By: #### C BC #### [facility] [address] [place] [address] Dr. Paige Tee Hematocrit (Bld) [Volume fraction] 35.9 % Critically low 42.0-54.0 [facility] Comment on above: Performed By: #### C BC #### [facility] [address] [place] [address] Dr. Paige Tee Hemoglobin (Bld) [Mass/Vol] 11.9 g/dL Critically low 14.0-18.0 [facility] Comment on above: Performed By: #### C BC #### [facility] [address] [place] [address] Dr. Paige Tee IG # 0.04 10e3/ul Critically high 0.00-0.03 [facility] Comment on above: Performed By: #### C BC #### [facility] [address] [place] [address] Dr. Paige Tee IG % 0.4 % Normal 0.0-0.5 [facility] Comment on above: Performed By: #### C BC #### [facility] [address] [place] [address] Dr. Paige Tee LYMPH # 3.2 103/ul Normal 1.2-3.8 [facility] Comment on above: Performed By: #### C BC #### [facility] [address] [place] [address] Dr. Paige Tee Lymphocytes/100 WBC (Bld) 30.0 % Normal 20.5-60.0 [facility] Comment on above: Performed By: #### C BC #### [facility] [address] [place] [address] Dr. Paige Tee MANUAL DIFF REQ NO Normal [facility] Comment on above: Performed By: #### C BC #### [facility] [address] [place] [address] Dr. Paige Tee MCH (RBC) [Entitic mass] 27.9 pg Normal 25.9-34.0 [facility] Comment on above: Performed By: #### C BC #### [facility] [address] [place] [address] Dr. Paige Tee MCHC (RBC) [Mass/Vol] 33.1 g/dL Normal 29.9-35.2 [facility] Comment on above: Performed By: #### C BC #### [facility] [address] [place] [address] Dr. Paige Tee MCV (RBC) [Entitic vol] 84.3 fL Normal 80.0-94.0 [facility] Comment on above: Performed By: #### C BC #### [facility] [address] [place] [address] Dr. Paige Tee MONO # 0.8 103/ul Normal 0.3-0.8 [facility] Comment on above: Performed By: #### C BC #### [facility] [address] [place] [address] Dr. Paige Tee Monocytes/100 WBC (Bld) 7.5 % Normal 1.7-12.0 [facility] Comment on above: Performed By: #### C BC #### [facility] [address] [place] [address] Dr. Paige Tee NEUT # 6.2 103/ul Normal 1.4-6.5 [facility] Comment on above: Performed By: #### C BC #### [facility] [address] [place] [address] Dr. Paige Tee Neutrophils/100 WBC (Bld) 57.5 % Normal 43.0-75.0 [facility] Comment on above: Performed By: #### C BC #### [facility] [address] [place] [address] Dr. Paige Tee Platelet mean volume (Bld) [Entitic vol] 9.5 fL Normal 9.5-13.5 [facility] Comment on above: Performed By: #### C BC #### [facility] [address] [address] [address] Paige Tee PLT 314 103/ul Normal 150-450 [facility] Comment on above: Performed By: #### C BC #### [facility] [address] [place] [address] Dr. Paige Tee RBC 4.26 106/ul Critically low 4.70-6.10 [facility] Comment on above: Performed By: #### C BC #### [facility] [address] [address] [address] Paige Tee WBC 10.8 103/ul Normal 4.0-11.0 [facility] Comment on above: Performed By: #### C BC #### [facility] [address] [place] [address] Dr. Paige Tee Covid-19 PCR (CVDTB)on 08-16 SARS-CoV-2 (COVID-19) RNA UMER+probe Ql (Unsp spec) Not detected Normal NOT DETECTED [facility] Comment on above: Result Comment: When diagnostic testing is negative, the possibility of a false negative should be considered in the context of a patient's recent exposures and the presence of clinical signs and symptoms consistent with SARS-CoV-2. This test is not yet approved or cleared by the [place] FDA. When there are no FDA-approved or cleared tests available, and other criteria are met, FDA can make tests available under an emergency access mechanism called an Emergency Use Authorization (EUA). The EUA for this test is supported by the [place] of Health and Human Service's declaration that circumstances exist to justify the emergency use of in vitro diagnostics for the detection and/or diagnosis of the virus that causes COVID-19. This EUA will remain in effect for the duration of the COVID-19 declaration justifying emergency of IVDs, unless it is terminated or revoked by the FDA (after which the test may no longer be used). Performed By: #### C VDTBH #### [facility] [address] [place] [address] Dr. Paige Tee PROF CHEM 8 (BAS METB)on Anion gap [Moles/Vol] 13.7 mmol/L Normal [facility] Comment on above: Performed By: #### H STROPN, BMP #### [facility] [address] [place] [address] Dr. Paige Tee Calcium [Mass/Vol] 9.1 mg/dL Normal 8.5-10.1 [facility] Comment on above: Performed By: #### H STROPN, BMP #### [facility] [address] [place] [address] Dr. Paige Tee Chloride [Moles/Vol] 104 mmol/L Normal 98-107 [facility] Comment on above: Performed By: #### H STROPN, BMP #### [facility] [address] [place] [address] Dr. Paige Tee CO2 [Moles/Vol] 24.4 mmol/L Normal 21.0-32.0 [facility] Comment on above: Performed By: #### H STROPN, BMP #### [facility] [address] [place] [address] Dr. Paige Tee Creatinine [Mass/Vol] 1.11 mg/dL Normal 0.70-1.30 [facility] Comment on above: Performed By: #### H STROPN, BMP #### [facility] [address] [place] [address] Dr. Paige Tee EGFR-AF SALVADOREAN >60 Normal >=60 [facility] Comment on above: Performed By: #### H STROPN, BMP #### [facility] [address] [place] [address] Dr. Paige Tee EGFR-NON AF SALVADOREAN >60 Normal >=60 [facility] Comment on above: Performed By: #### H STROPN, BMP #### [facility] [address] [place] [address] Dr. Paige Tee Glucose [Mass/Vol] 115 mg/dL Critically high 74-106 [facility] Comment on above: Performed By: #### H STROPN, BMP #### [facility] [address] [place] [address] Dr. Paige Tee Potassium [Moles/Vol] 4.1 mmol/L Normal 3.5-5.1 [facility] Comment on above: Performed By: #### H ANJUPN, BMP #### [facility] [address] [place] [address] Dr. Paige Tee Sodium [Moles/Vol] 138 mmol/L Normal 136-145 [facility] Comment on above: Performed By: #### H ANJUPN, BMP #### [facility] [address] [place] [address] Dr. Paige Tee Urea nitrogen [Mass/Vol] 20.0 mg/dL Critically high 7.0-18.0 [facility] Comment on above: Performed By: #### H ANJUPN, BMP #### [facility] [address] [place] [address] Dr. Paige Tee Urea nitrogen/Creatinine [Mass ratio] 18.0 mg/mg Normal [facility] Comment on above: Performed By: #### H TAMMI, BMP #### [facility] [address] [place] [address] Dr. Paige Tee TROPONIN, HIGH SENSITIVITYon 09-02-2022 HSTROP 4.1 pg/mL Normal 4.0-76.1 [facility] Comment on above: Result Comment: CUT- OFF POINTS HAVE BEEN ESTABLISHED BASED ON THE FOURTH UNIVERSAL DEFINITIONS OF MYOCARDIAL INFARCTION. THE UPPER REFERENCE LIMIT (URL) OF TROPONIN, DEFINED THE 99TH PERCENTILE OF cTnI DISTRIBUTION IN A REFERENCE POPULATION, HAS BEEN CONFIRMED THE DECISION THRESHOLD FOR LA DIAGNOSIS. Performed By: #### H ANJUPN #### [facility] [address] [place] [address] Dr. Paige Tee HSTROP 4.5 pg/mL Normal 4.0-76.1 [facility] Comment on above: Result Comment: CUT- OFF POINTS HAVE BEEN ESTABLISHED BASED ON THE FOURTH UNIVERSAL DEFINITIONS OF MYOCARDIAL INFARCTION. THE UPPER REFERENCE LIMIT (URL) OF TROPONIN, DEFINED THE 99TH PERCENTILE OF cTnI DISTRIBUTION IN A REFERENCE POPULATION, HAS BEEN CONFIRMED THE DECISION THRESHOLD FOR LA DIAGNOSIS. Performed By: #### H STROPN, BMP #### [facility] [address] [place] [address] Dr. Paige Tee XR CHEST 1 Von 09-02-2022 XR CHEST 1 V EXAMINATION: XR CHES T 1 V HISTORY: CHEST PAIN, UNSPECIFIED COMPARISON: 10/08/2020 TECHNIQUE: AP portable FINDINGS: LUNGS: No significant pulmonary parenchymal abnormalities. VASCULATURE: No increased pulmonary vasculature. PLEURA: No pneumothorax, effusion, or pleural thickening. CARDIAC: No cardiomegaly or cardiac silhouette abnormality. MEDIASTINUM: No visible mass or adenopathy. BONES: No fracture or visible bone lesion. Left humeral head arthroplasty OTHER: Negative. IMPRESSION: No acute disease. Electronically authenticated by: BISMARK REDD Date: 2022-09-02 12:29 Normal [facility] NM STRESS/REST MULTIon 12-17 NM STRESS/REST MULTI Patient: KARLA MCCOLLUM Exam Date: 12/17/2021 : 1950 Gender:M Ordering : DR HOA TRAN . Admission #: [id number] Family : Order #: [id number] CLICK HERE TO VIEW EXAM RADIOLOGY REPORT PROCEDURE: RADIONUCLIDE IMAGING STRESS/REST MULTI COMPARISON: NM STRESS/REST MULTI, 09/01/2019. NM STRESS/REST MULTI, 01/27/2016. INDICATIONS: Dyspnea, coronary artery disease TECHNIQUE: Exam Description: Stress/Rest one day protocol gated SPECT Rest Imagin.1 mCi Tc-99m Cardiolite IV on 12/17/2021 Stress Imaging 30.1 mCi Tc-99m Cardiolite IV on 12/17/2021 Exercise Protocol: 0.4 mg Lexiscan given IV Heart Rate (bpm): Rest: 63 Max: 85 PMHR: 56 Blood Pressure: Rest: 124/72 Max: 126/64 Symptoms: Rest and peak stress ECG findings were normal and the exercise portion of the study was normal per attending physician Dr. Villasenor . For more details please see separate cardiac stress test report. FINDINGS: QUALITY OF STUDY: Good. PERFUSION DEFECT: LOCATION: Basal inferior. Mid-inferior. Apical inferior. SIZE: Medium (3-4 segments). SEVERITY: Moderate. TYPE: Persistent. WALL MOTION: Normal. LV SIZE: Normal. 39 mL. TID / TCD: None; 0.9 LVEF: Normal. Calculated EF 64%. SUMMARY: Myocardial perfusion imaging study has ABNORMAL findings. CONCLUSION: 1. Fixed defect inferior wall 2. No reversible ischemia 3. Normal exercise test Dictated by: Bismark Redd MD on 12/18/2021 at 09:06 Approved by: Bismark Redd MD on 12/18/2021 at 09:10 Normal [facility] BASIC METABOLIC PANELon 09-17 Calcium [Mass/Vol] 8.9 mg/dL Normal 8.6-10.3 [facility] Comment on above: Order Comment: No: D o not add to previous draw Performed By: #### 0 0071 #### [facility] [address] [place] [address], [place] Chloride [Moles/Vol] 105 mmol/L Normal 98-107 [facility] Comment on above: Order Comment: No: D o not add to previous draw Performed By: #### 0 0071 #### [facility] [address] [place] [address], [place] CO2 [Moles/Vol] 25 mmol/L Normal 21-[address] [facility] Comment on above: Order Comment: No: D o not add to previous draw Performed By: #### 0 0071 #### [facility] [address] [place] [address], [place] Creatinine [Mass/Vol] 0.82 mg/dL Normal 0.70-1.30 [facility] Comment on above: Order Comment: No: D o not add to previous draw Performed By: #### 0 0071 #### [facility] [address] [place] [address], [place] GFR/1.73 sq M predicted among blacks MDRD (S/P/Bld) [Vol rate/Area] mL/min/{1.73_m2} Normal >60 [facility] Comment on above: Order Comment: No: D o not add to previous draw Performed By: #### 0 0071 #### [facility] [address] [place] [address], [place] GFR/1.73 sq M predicted among non-blacks MDRD (S/P/Bld) [Vol rate/Area] mL/min/{1.73_m2} Normal >60 [facility] Comment on above: Order Comment: No: D o not add to previous draw Performed By: #### 0 0071 #### [facility] [address] [place] [address], [place] Glucose [Mass/Vol] 104 mg/dL High 70-100 [facility] Comment on above: Order Comment: No: D o not add to previous draw Performed By: #### 0 0071 #### [facility] [address] [place] [address], [place] Potassium [Moles/Vol] 3.6 mmol/L Normal 3.5-5.1 [facility] Comment on above: Order Comment: No: D o not add to previous draw Performed By: #### 0 0071 #### [facility] [address] [place] [address], [place] Sodium [Moles/Vol] 137 mmol/L Normal 136-145 [facility] Comment on above: Order Comment: No: D o not add to previous draw Performed By: #### 0 0071 #### [facility] [address] [place] [address], [place] Urea nitrogen [Mass/Vol] 13 mg/dL Normal 7-25 [facility] Comment on above: Order Comment: No: D o not add to previous draw Performed By: #### 0 0071 #### [facility] [address] [place] [address], [place] CBC COMPLETE BLOOD COUNTon 0 - Erythrocyte distribution width (RBC) [Ratio] 13.1 % Normal 11.5-15.0 [facility] Comment on above: Order Comment: No: D o not add to previous draw Performed By: #### 3 [id number] #### [facility] [address] [place] [address], [place] Hematocrit (Bld) [Volume fraction] 36.6 % Low 39.0-50.0 [facility] Comment on above: Order Comment: No: D o not add to previous draw Performed By: #### 3 [id number] #### [facility] [address] [place] [address], [facility] Hemoglobin (Bld) [Mass/Vol] 11.6 g/dL Low 13.0-17.0 [facility] Comment on above: Order Comment: No: D o not add to previous draw Performed By: #### 3 5200 #### [facility] [address] [place] [id number], [facility] MCH (RBC) [Entitic mass] 28.1 pg Normal 27.0-33.0 [facility] Comment on above: Order Comment: No: D o not add to previous draw Performed By: #### 3 [id number] #### [facility] [address] [place] [place] [address], [facility] MCHC (RBC) [Mass/Vol] 31.7 g/dL Low 32.0-35.0 The [facility] Comment on above: Order Comment: No: D o not add to previous draw Performed By: #### 3 5200 #### [facility] [address] [place] [address], [facility] MCV (RBC) [Entitic vol] 88.6 fL Normal 82.0-98.0 [facility] Comment on above: Order Comment: No: D o not add to previous draw Performed By: #### 3 5200 #### [facility] [address] [place] [address], [facility] Nucleated RBC/100 WBC (Bld) [Ratio] 0 % Normal 0-0 [facility] Comment on above: Order Comment: No: D o not add to previous draw Performed By: #### 3 5200 #### [facility] [address] [place] [id number], [facility] PLAT CNT 289 10*3/uL Normal 150-400 [facility] Comment on above: Order Comment: No: D o not add to previous draw Performed By: #### 3 5200 #### [facility] [address] [place] [address], [place] RBC (Bld) [#/Vol] 4.13 10*6/uL Low 4.20-5.70 [facility] Comment on above: Order Comment: No: D o not add to previous draw Performed By: #### 3 5200 #### [facility] [address] [place] [address], [place] WBC (Bld) [#/Vol] 10.27 10*3/uL Normal 4.00-10.60 [facility] Comment on above: Order Comment: No: D o not add to previous draw Performed By: #### 3 5200 #### [facility] [address] [place] [address], [place] BASIC METABOLIC PANELon 02-2 Calcium [Mass/Vol] 9.2 mg/dL Normal 8.6-10.3 [facility] Comment on above: Order Comment: No: D o not add to previous draw Performed By: #### 0 0071 #### [facility] [address] [place] [address], [place] Chloride [Moles/Vol] 106 mmol/L Normal 98-107 [facility] Comment on above: Order Comment: No: D o not add to previous draw Performed By: #### 0 0071 #### [facility] [address] [place] [address], [place] CO2 [Moles/Vol] 27 mmol/L Normal 21-31 [facility] Comment on above: Order Comment: No: D o not add to previous draw Performed By: #### 0 0071 #### [facility] [address] [place] [address], [place] Creatinine [Mass/Vol] 0.84 mg/dL Normal 0.70-1.30 [facility] Comment on above: Order Comment: No: D o not add to previous draw Performed By: #### 0 0071 #### [facility] [address] [place] [address], [place] GFR/1.73 sq M predicted among blacks MDRD (S/P/Bld) [Vol rate/Area] mL/min/{1.73_m2} Normal >60 [facility] Comment on above: Order Comment: No: D o not add to previous draw Performed By: #### 0 0071 #### [facility] [address] [place] [address], [place] GFR/1.73 sq M predicted among non-blacks MDRD (S/P/Bld) [Vol rate/Area] mL/min/{1.73_m2} Normal >60 [facility] Comment on above: Order Comment: No: D o not add to previous draw Performed By: #### 0 0071 #### [facility] [address] [place] [address], [place] Glucose [Mass/Vol] 101 mg/dL High 70-100 [facility] Comment on above: Order Comment: No: D o not add to previous draw Performed By: #### 0 0071 #### [facility] [address] [place] [address], [place] Potassium [Moles/Vol] 3.8 mmol/L Normal 3.5-5.1 [facility] Comment on above: Order Comment: No: D o not add to previous draw Performed By: #### 0 0071 #### [facility] [address] [place] [address], [place] Sodium [Moles/Vol] 139 mmol/L Normal 136-145 [facility] Comment on above: Order Comment: No: D o not add to previous draw Performed By: #### 0 0071 #### [facility] [address] [place] [address], [facility] Urea nitrogen [Mass/Vol] 15 mg/dL Normal 7-25 [facility] Comment on above: Order Comment: No: D o not add to previous draw Performed By: #### 0 0071 #### [facility] [address] [place] [id number], [facility] CBC COMPLETE BLOOD COUNTon 10-11-2020 Erythrocyte distribution width (RBC) [Ratio] 12.9 % Normal 11.5-15.0 [facility] Comment on above: Order Comment: No: D o not add to previous draw Performed By: #### 3 5200 #### [facility] [address] [place] [address], [facility] Hematocrit (Bld) [Volume fraction] 38.6 % Low 39.0-50.0 [facility] Comment on above: Order Comment: No: D o not add to previous draw Performed By: #### 3 5200 #### [facility] [address] [place] [address], [facility] Hemoglobin (Bld) [Mass/Vol] 12.3 g/dL Low 13.0-17.0 [facility] Comment on above: Order Comment: No: D o not add to previous draw Performed By: #### 3 5200 #### [facility] [address] [place] [address], [facility] MCH (RBC) [Entitic mass] 28.5 pg Normal 27.0-33.0 [facility] Comment on above: Order Comment: No: D o not add to previous draw Performed By: #### 3 5200 #### [facility] [address] [place] [address], [facility] MCHC (RBC) [Mass/Vol] 31.9 g/dL Low 32.0-35.0 [facility] Comment on above: Order Comment: No: D o not add to previous draw Performed By: #### 3 5200 #### [facility] [address] [place] [address], [facility] MCV (RBC) [Entitic vol] 89.6 fL Normal 82.0-98.0 [facility] Comment on above: Order Comment: No: D o not add to previous draw Performed By: #### 3 5200 #### [facility] [address] [address], [facility] Nucleated RBC/100 WBC (Bld) [Ratio] 0 % Normal 0-0 [facility] Comment on above: Order Comment: No: D o not add to previous draw Performed By: #### 3 5200 #### [facility] [address] [place] [address], [facility] PLAT CNT 279 10*3/uL Normal 150-400 [facility] Comment on above: Order Comment: No: D o not add to previous draw Performed By: #### 3 5200 #### [facility] [address] [place] [address], [facility] RBC (Bld) [#/Vol] 4.31 10*6/uL Normal 4.20-5.70 [facility] Comment on above: Order Comment: No: D o not add to previous draw Performed By: #### 3 5200 #### [facility] [address] [place] [address], [facility] WBC (Bld) [#/Vol] 10.25 10*3/uL Normal 4.00-10.60 [facility] Comment on above: Order Comment: No: D o not add to previous draw Performed By: #### 3 5200 #### [facility] [address] [place] [address], [facility] CTA HEART-CORONARY/ ARTERY B YPASS GRAFT WITH 3DPPon 10-11-2020 CTA HEART-CORONARY/ ARTERY BYPASS GRAFT WITH 3DPP [facility] Department of Radiology [address] [place] [address] [id number] Patient Name: KARLA MCCOLLUM : 1950 Sex: M Age: Race: White Pt. 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 CONTRAST: Contrast: OMNIPAQUE 350 (LOCM), 100 milliliter, Intravenous TECHNIQUE: Multidetector CT angiogram was obtained using prospective ECG gating. Imaging was performed from the level of the clavicles to the level of the hemidiaphragms. In order to provide better evaluation of the anatomy and disease process, advanced off-line 3-D post-processing techniques. Medication administered in preparation for the examination located in nursing documentation. All CT scans at this facility use dose modulation, iterative reconstruction, and/or weight based dosing when appropriate to reduce radiation dose to as low as reasonably achievable. COMPARISON: Coronary catheter report performed previous day CORONARY ARTERY ANGIOGRAM FINDINGS: Stenoses are reported as maximum percentage diameter stenosis. Stenosis grading is reported using the following scheme: Normal: no stenosis Mild: 1-49% stenosis Moderate: 50-70% stenosis Severe: >70% stenosis Occluded There is right coronary dominance with posterior lateral and posterior descending branches well visualized. There is a high takeoff of the left main coronary artery just above the cusp. After the left main there is not a normal appearing LAD. Small branches extending to marginal and ramus distribution. Small caliber but otherwise normal-appearing circumflex and marginal branches. There is a normal origin of the right coronary artery. Immediately medial to the right coronary artery a 1 to 2 mm vessel originates and courses towards the intraventricular septum with poor visibility in the myocardium. This vessel then becomes more visible at the periphery of the myocardium and ultimately emerges and descends along the myocardium primarily within marginal distribution. There are additional branches that emerge and it would be difficult to characterize some of the distribution as septal, marginal or diminutive LAD distribution. Vessels of this size are often poorly resolved on CT. A normal normal distribution LAD is not visualized. There is minimal atherosclerotic disease of the right left coronary arteries. Coronary artery scoring was not performed. Ejection fraction not calculated per protocol. Normal heart size. No pericardial effusion. EXTRACARDIAC FINDINGS: Lungs are clear of active disease. 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 A small branch appears to extend along the marginal and LAD distribution but is only seen for a short course. A normal distribution LAD is not seen from the left coronary artery. Therefore it is presumed that a combination of branches supply the LAD distribution that are not well delineated on this exam. * High take off of left main coronary artery superior margin of the cusp. * No significant coronary artery disease otherwise. Electronically signed: Asa Hill. 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 E MR #: [id number] Department of Physician: [facility] Justin Stern M.D. Division of Service Date: 10/10/2020 Cardiology Birthdate: 1950 Adult Cardiovascular Room #: 3AB [id number] [place] [address] [address] [place] [address] Cardiovascular Laboratory Report INDICATION: The patient is a 70-year-old man who was admitted with unstable angina. He was referred for cardiac catheterization. PROCEDURES: 1. Access into the right radial artery with right radial angiography. 2. Bilateral selective coronary angiography from the right femoral access. 3. Limited right common femoral angiography. 4. Access into the right common femoral artery under ultrasound guidance. 5. Administration of intracoronary nitroglycerin. METHODS: Procedure was explained to the patient with risks and benefits. He signed informed consent. He was brought to cath lab nurse in a fasting state. The right wrist area was prepped and draped in usual fashion. Modified Satnam's test was favorable on the right. Access in the right radial artery was obtained using micropuncture technique. A 6-Cuban x 11 cm Hydrophilic sheath was advanced, verapamil was given through the sheath and heparin was administered intravenously. Initial advancement of the Pickard J-tipped wire proved difficult around the brachial area. Therefore, we advanced an angled glide wire over which a straight tapered catheter could not advance completely. Therefore, the wire was retracted. The straight tapered catheter was used to perform right radial angiography. This showed evidence of the right radial loop that caused inability to advance catheters. Therefore this access site was abandoned. A TR band was used for hemostasis in the right radial artery. The right groin area was prepped and draped in usual fashion. Using micropuncture technique, access was obtained in the right common femoral artery under ultrasound guidance. Limited right common femoral angiography using the inner cannula showed access at an adequate location, this was upsized to a 6-Cuban x 11 cm sheath. Bilateral selective coronary angiography was then performed using 6-Cuban JL3.5 and JR4 diagnostic catheters. 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 Angiography was performed. Catheter was removed. Procedure was concluded. The patient tolerated the procedure well. He was transferred to the cardiovascular recovery area. The access sheath in the right common femoral artery will be removed and manual compression applied for hemostasis when the ACT is subtherapeutic, he will then be transferred back to his room. TOTAL FLUORO TIME: 8.46 minutes. TOTAL AIR KERMA: 675 mGy. TOTAL CONTRAST VOLUME: 70 mL. HEMODYNAMICS: AO 143/77, mean 100. CORONARY ANGIOGRAPHY: This is a right dominant circulation. Left main: This arises from left coronary cusp. It bifurcates into a circumflex and ramus vessels. The left main is free of disease. Ramus vessel: This is a large vessel that has on baseline angiography, a mid segment 70% stenosis. This was relieved to 0% after injection of 100 mcg of intracoronary nitroglycerin. The rest of the vessel is free of disease. Circumflex vessel: This is large and nondominant. It has mild luminal irregularities. Right coronary artery: This arises from the right coronary cusp. This is a large and dominant vessel. It has minimal luminal irregularities. Left anterior descending: This arises from the right coronary cusp and courses to the left. It is a moderate-size vessel with no significant disease. Limited right common femoral angiography. This showed access to be in the right common femoral artery with no obstructive lesions noted in the femoral artery or its proximal branches. SUMMARY OF THE FINDINGS: 1. 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 The left anterior descending is of moderate caliber. 2. Minimal disease in the left main, circumflex, and right coronary artery. 3. Evidence of spasm in the proximal to mid segment of the ramus vessel, relieved by intracoronary nitroglycerin. 4. Presence of a right radial artery loop. RECOMMENDATIONS: 1. The patient will be treated for coronary artery spasm medically. 2. The patient will undergo a cardiac CT angiogram to define the course of the anomalous LAD coursing from the right to the left. Electronically Signed by: Neli Stern M.D. 10/11/2020 04:22 P Neli Stern M.D. Date Dict: 10/10/2020/04:02 P/Neli Stern M.D. Date Trans: 10/11/2020 06:09 A/mmo [id number] cc: Hoa Tran M.D. [place] [id number] [facility], [place] [address] Neli Stern M.D. Heart Failure/ Transplant Mailstop [address] [facility] [address] Normal [facility] BASIC METABOLIC PANELon 09-17 Calcium [Mass/Vol] 9.0 mg/dL Normal 8.6-10.3 [facility] Comment on above: Order Comment: No: D o not add to previous draw Performed By: #### 0 0071, [id number] #### [facility] [address] [place] [address], [facility] Chloride [Moles/Vol] 103 mmol/L Normal 98-107 [facility] Comment on above: Order Comment: No: D o not add to previous draw Performed By: #### 0 0071, [id number] #### [facility] [address] [place] [address], [place] CO2 [Moles/Vol] 25 mmol/L Normal 21-31 [facility] Comment on above: Order Comment: No: D o not add to previous draw Performed By: #### 0 0071, 27533 #### [facility] [address] [place] [address], [place] Creatinine [Mass/Vol] 0.87 mg/dL Normal 0.70-1.30 [facility] Comment on above: Order Comment: No: D o not add to previous draw Performed By: #### 0 0071, 87949 #### [facility] [address] [place] [address], [place] GFR/1.73 sq M predicted among blacks MDRD (S/P/Bld) [Vol rate/Area] mL/min/{1.73_m2} Normal >60 [facility] Comment on above: Order Comment: No: D o not add to previous draw Performed By: #### 0 70, 79127 #### [facility] [address] [place] [address], [place] GFR/1.73 sq M predicted among non-blacks MDRD (S/P/Bld) [Vol rate/Area] mL/min/{1.73_m2} Normal >60 [facility] Comment on above: Order Comment: No: D o not add to previous draw Performed By: #### 0 70, 93936 #### [facility] [address] [place] [address], [place] Glucose [Mass/Vol] 109 mg/dL High 70-100 [facility] Comment on above: Order Comment: No: D o not add to previous draw Performed By: #### 0 70, 22987 #### [facility] [address] [place] [address], [place] Potassium [Moles/Vol] 3.5 mmol/L Normal 3.5-5.1 [facility] Comment on above: Order Comment: No: D o not add to previous draw Performed By: #### 0 70, 64840 #### [facility] [address] [place] [address], [place] Sodium [Moles/Vol] 137 mmol/L Normal 136-145 [facility] Comment on above: Order Comment: No: D o not add to previous draw Performed By: #### 0 70, 94953 #### [facility] [address] [place] [address], [place] Urea nitrogen [Mass/Vol] 14 mg/dL Normal 7-25 [facility] Comment on above: Order Comment: No: D o not add to previous draw Performed By: #### 0 70, 97405 #### [facility] [address] [place] [address], [place] CBC COMPLETE BLOOD COUNTon 0 10-10-2020 Erythrocyte distribution width (RBC) [Ratio] 13.2 % Normal 11.5-15.0 [facility] Comment on above: Order Comment: No: D o not add to previous draw Performed By: #### 3 5200 #### [facility] [address] [place] [id number], [facility] Hematocrit (Bld) [Volume fraction] 38.2 % Low 39.0-50.0 [facility] Comment on above: Order Comment: No: D o not add to previous draw Performed By: #### 3 5200 #### [facility] [address] [place] [address], [facility] Hemoglobin (Bld) [Mass/Vol] 12.2 g/dL Low 13.0-17.0 [facility] Comment on above: Order Comment: No: D o not add to previous draw Performed By: #### 3 5200 #### [facility] [address] [place] [address], [facility] MCH (RBC) [Entitic mass] 28.6 pg Normal 27.0-33.0 [facility] Comment on above: Order Comment: No: D o not add to previous draw Performed By: #### 3 5200 #### [facility] [address] [place] [address], [facility] MCHC (RBC) [Mass/Vol] 31.9 g/dL Low 32.0-35.0 [facility] Comment on above: Order Comment: No: D o not add to previous draw Performed By: #### 3 5200 #### [facility] [address] [place] [address], [facility] MCV (RBC) [Entitic vol] 89.5 fL Normal 82.0-98.0 [facility] Comment on above: Order Comment: No: D o not add to previous draw Performed By: #### 3 5200 #### [facility] [address] [place] [id number], [facility] Nucleated RBC/100 WBC (Bld) [Ratio] 0 % Normal 0-0 [facility] Comment on above: Order Comment: No: D o not add to previous draw Performed By: #### 3 5200 #### [facility] [address] [place] [address], [facility] PLAT CNT 253 10*3/uL Normal 150-400 [facility] Comment on above: Order Comment: No: D o not add to previous draw Performed By: #### 3 5200 #### [facility] [address] [place] [address], [facility] RBC (Bld) [#/Vol] 4.27 10*6/uL Normal 4.20-5.70 [facility] Comment on above: Order Comment: No: D o not add to previous draw Performed By: #### 3 5200 #### [facility] [address] [place] [address], [facility] WBC (Bld) [#/Vol] 10.57 10*3/uL Normal 4.00-10.60 [facility] Comment on above: Order Comment: No: D o not add to previous draw Performed By: #### 3 5200 #### [facility] [address] [place] [address], [facility] HEMOGLOBIN A1Con 10-10-2020 HbA1c (Bld) [Mass fraction] 6.0 % Normal 4.0-6.0 [facility] Comment on above: Order Comment: No: D o not add to previous draw Performed By: #### 3 1791 #### [facility] [address] [place] [address], [facility] HbA1c (Bld) [Mass fraction] 126 mmol/L Normal [facility] Comment on above: Order Comment: No: D o not add to previous draw Performed By: #### 3 1791 #### [facility] [address] [place] [address], [facility] LIPID PROFILEon 10-10-2020 Cholesterol [Mass/Vol] 144 mg/dL Normal 120-200 [facility] Comment on above: Order Comment: No: D o not add to previous draw Result Comment: CHOL ESTEROL REFERENCE RANGE: 20 YEARS AND OLDER CARDIOVASCULAR RISK Less than 200 mg/dl Low Risk 200 to 239 mg/dl Borderline Risk 240 mg/dl and greater High Risk Performed By: #### 0 0071, 97024 #### [facility] [address] [place] [address], [facility] Cholesterol in HDL [Mass/Vol] 30 mg/dL Normal 23-92 [facility] Comment on above: Order Comment: No: D o not add to previous draw Result Comment: Slig ht variation in normal range could be due to gender and/or age. HDL CHOLESTEROL REFERENCE RANGE: 20 years and older Cardiovascular Risk > or =60 mg/dL Desirable 40 TO 59 mg/dL Low Risk <40 mg/dL High Risk Performed By: #### 0 007, 82076 #### [facility] [address] [place] [address], [facility] Cholesterol in LDL [Mass/Vol] 73 mg/dL Normal 0-130 [facility] Comment on above: Order Comment: No: D o not add to previous draw Result Comment: LDL IS A CALCULATION LDL IS ONLY VALID IF THE TRIG IS LESS THAN 400. Performed By: #### 0 007, 53408 #### [facility] [address] [place] [address], [facility] Cholesterol.total/C holesterol in HDL [Mass ratio] 4.8 {ratio} High 0.0-4.5 The [facility] Comment on above: Order Comment: No: D o not add to previous draw Performed By: #### [id number], [id number] #### [facility] [address] [place] [address], [facility] NON-HDL CHOLESTEROL 114 mg/dL Normal [facility] Comment on above: Order Comment: No: D o not add to previous draw Performed By: #### 0 [id number], [id number] #### [facility] [address] Triglyceride [Mass/Vol] 203 mg/dL High 40-149 [facility] Comment on above: Order Comment: No: D o not add to previous draw Result Comment: TRIG LYCERIDE REFERENCE RANGE: 20 YEARS AND OLDER CARDIOVASCULAR RISK LESS THAN 150 mg/dl LOW RISK 150 TO 199 mg/dl BORDERLINE RISK 200 mg/dl AND GREATER HIGH RISK Performed By: #### 0 [id number], [id number] #### [facility] [address] VLDL CHOL 41 mg/dL High 0-40 [facility] Comment on above: Order Comment: No: D o not add to previous draw Performed By: #### 0 [id number], [id number] #### [facility] [address] PROTHROMBIN TIMEon 1 INR Coag (PPP) [Relative time] 1.00 {INR} Normal 0.91-1.16 [facility] Comment on above: Order Comment: No: D o not add to previous draw Result Comment: ACCC P RECOMMENDED INR FOR WARFARIN THERAPY ------ ------- CONDITION INR PROPHYLAXIS OF VENOUS THROMBOSIS 2-3 (HIGH-RISK SURGERY) TREATMENT OF VENOUS THROMBOSIS 2-3 TREATMENT OF PULMONARY EMBOLISM 2-3 PREVENTION OF SYSTEMIC EMBOLISM: 2-3 ACUTE MYOCARDIAL INFARCTION TISSUE HEART VALVES VALVULAR HEART DISEASE ATRIAL FIBRILLATION RECURRENT SYSTEMIC EMBOLISM MECHANICAL HEART VALVE 2.5-3.5 FROM: ORAL ANTICOAGULANTS. MECHANISM OF ACTION, CLINICAL EFFECTIVENESS, AND OPTIMAL THERAPEUTIC RANGE. CHEST 1995;108:231S-246S. Performed By: #### [id number] #### [facility] [address] [facility] [address], [facility] PT Coag (PPP) [Time] 13.2 s Normal 12.3-14.8 [facility] Comment on above: Order Comment: No: D o not add to previous draw Result Comment: ALL RESULTS MUST BE INTERPRETED WITH RESPECT TO BLOOD DRAWING ARTIFACT OR DILUTION ERROR OF ANTICOAGULANT AT THE TIME OF SAMPLING. Performed By: #### 5 [id number] #### [facility] [address] [facility] [address], [facility] BNP (B-TYPE NATRIURETIC PEPT FELISA)on 10-09-2020 Natriuretic peptide B (Bld) [Mass/Vol] 32 pg/mL Normal 0-100 [facility] Comment on above: Order Comment: No: D o not add to previous draw Result Comment: Give n the appropriate clinical setting a BNP result of >100 pg/mL indicates congestive heart failure. Performed By: #### [id number] #### [facility] [address] [facility]. [address] TROPONIN-Ion 10-09-2020 Troponin I.cardiac [Mass/Vol] 0.00 ng/mL Normal 0.00-0.04 [facility] Comment on above: Order Comment: No: D o not add to previous draw Result Comment: REFE RENCE RANGES: 0.00 - 0.14 ng/ml NEGATIVE 0.15 - 0.25 ng/ml INDETERMINATE > 0.25 ng/ml INDICATIVE OF AN M.I. Performed By: #### 3 [id number] #### [facility] [address] Provider Letter FTon 09-20 Provider Letter [facility] [place] [address] [place] [address] [place] [address] Re: KARLA MCCOLLUM Date of : 1950 Thank you for your referral of Karla Mccollum who was seen on consultation on Sep 17, 2020, for three skin lesions of concern. I have enclosed my consultation note for your review, and I will be happy to follow Karla should he need further treatment. Sincerely, Karla Dye MD General Surgery Normal [facility] Facesheeton 09-18-2020 Facesheet [id number] 2 [id number]:127 Normal [facility] Ambulatory Clinical Summaryo n 09-17-2020 Ambulatory Clinical Summary {[id number] Normal [facility] General Surgery Office/Clini c Noteon 09-17-2020 General Surgery Office/Clinic Note Chief Complaint referral for nevus HPI Staff 70 year old male presents on consultation from Dr. Tran for three skin lesions of concern. One in front of left ear, one on left chin and one on left neck. Denies previous history of skin cancers. History of Present Illness 70 yo male with h/o htn, extensive sun exposure from working outside, reports long h/o lesions face, neck and preauricular. no change in size, occasionally get irritated and bleed, no pigmentation change, puts different creams on them; no personal or fmhx of skin cancer; on diclofenac daily, no asa use; no tobacco use. Review of Systems PHQ Score Initial Depression Screen Score: 0 ROS - Provider Constitutional: no fever, no sweats, no weight loss. Eyes: no glasses, no blurred vision, no visual loss. ENMT: no dentures, no hoarseness, no swallowing difficulties, no hearing loss, no ear infection(s), no nose bleeds. Cardiovascular: high blood pressure, no chest pain, regular heartbeat, no heart murmur. Respiratory: no shortness of breath, no cough, no asthma, no wheezing. Gastrointestinal: no nausea, no vomiting, no diarrhea, no constipation, no blood in stool, no change in bowel habits, no abdominal pain, no hepatitis. Genitourinary: no kidney stones, no urine infection, no dysuria. Musculoskeletal: no pain, no weakness. Skin: no changing moles, no rash, yes skin lumps. Neurologic: no seizures, no epilepsy, no headache. Psychiatric: no emotional or psychiatric problem. Heme/Lymph: no bleeding problems, no anemia, no blood clots, no transfusions. Allergy/Immunologic: no swollen lymph nodes/glands, no IV drug abuse. Other: Additional ROS info: Except as noted in the above Review of Systems and in the History of Present Illness, all other systems have been reviewed and are negative or noncontributory. Physical Exam Vitals & Measurements T: 36.4 ?C (Tympanic) HR: 72(Peripheral) RR: 16 BP: 158/84 HT: 177.8 cm HT: 177.8 cm WT: 112.4 kg WT: 112.4 kg BMI: 35.56 HEENT: normal conjunctiva, sclera clear, no scleral icterus, EOM intact, PERRLA, oral mucosa moist without lesions. Neck: trachea midline, no mass, symmetric, no thyromegaly or nodules, no adenopathy Respiratory: lungs CTA, respirations non labored. Cardiovascular: regular rate and rhythm, no murmur, no pedal edema or varicosities. Lymphatic: no cervical adenopathy, no axillary adenopathy, Musculoskeletal: normal gait, digits and nails without infection, nodes, cyanosis, clubbing. Skin: no rashes,left preauricular area with 18 mm area of rough, scaly skin, no ulceration or pigmentation changes, no raised component; left osterior neck with 3 mm raised, nonpigmented keratotic area, no ulceration or bleeding; right medial cheek with 3 mm area of induration around hair follicle, no drainage, no ulcers, no subcutaneous nodules, Psychiatric/Neuro: oriented to time, place, person, judgement normal, affect appropriate for age, insight intact, no focal deficits. Tests: , review of old records completed, Assessment/Plan 1. Solar keratosis (L57.0: Actinic keratosis) left preauricular and left posterior neck; no evidence of skin cancer at this time, if enlarge or change, follow up for excision; call with problems/questions. 2. Folliculitis (L73.9: Follicular disorder, unspecified) keep area clean and dry; call with problems/questions. 3. BMI 35.0-35.9,adult (Z68.35: Body mass index [BMI] 35.0-35.9, adult) recommend diet and exercise. Follow-up No qualifying data available Problem List/Past Medical History Ongoing BMI 35.0-35.9,adult Cervical spondylosis Chronic low back pain Constipation Coronary artery disease Eczema Folliculitis Gout Hemorrhoids Hypertension Hypertriglyceridemia Inguinal hernia Nevus Rectal bleeding Solar keratosis Testicular mass Historical No qualifying data Procedure/Surgical History Arthroplasty of the hip (11/14/2017), Cholecystectomy, Repair of right inguinal hernia, Rotator cuff repair. Medications amLODIPine 10 mg Tab, Oral, Daily atorvastatin 20 mg Tab, 20 mg= 1 tab(s), Oral, Daily carvedilol 25 mg Tab, 25 mg= 1 tab(s), Oral, BID Cialis, Oral, Daily diclofenac sodium 75 mg Oral EC Tab, 75 mg= 1 tab(s), Oral, BID fenofibrate 145 mg Tab, 145 mg= 1 tab(s), Oral, Daily ferrous sulfate 325 mg oral enteric coated tablet, Oral, Daily hydrochlorothiazide 12.5 mg Cap, 12.5 mg= 1 cap(s), Oral, Daily isosorbide mononitrate 60 mg ER Tab, 60 mg= 1 tab(s), Oral, qAM MiraLax, Oral, Daily omeprazole 40 mg Cap-DR, 40 mg= 1 cap(s), Oral, Daily predniSONE 10 mg Tab, 10 mg= 1 tab(s), Oral, Daily Allergies No Known Allergies Social History Alcohol - Denies Alcohol Use, 09/17/2020 Substance Abuse - Denies Substance Abuse, 09/17/2020 Tobacco Former smoker, quit more than 30 days ago Tobacco Use:. Cigarettes, 1 per day. Started age 16.0 Years. Stopped age 31 Years., 09/17/2020 Family History Primary malignant neoplasm of lung: Father. Normal [facility] Comment on above: Result Comment: Elec tronically Signed By: SHEY WARD, Karla Leos\Date and Time Signed: 09/17/20 16:29 EST Physician Referralon 021 Physician Referral [id number] 1 [id number] .[id number]:127 Normal [facility] Encounters Encounter Date Encounter Type Care Provider Facility Start: 12-02-2023 End: 12-02-2023 ambulatory KAMRAN GUILLEN Not Available Start: 06-18-2023 End: 06-18-2023 ambulatory [facility] Start: 11-24-2022 End: 11-25-[address] NELI STERN Facility:[facility] Start: 11-23-2022 End: 11-23-2022 ambulatory NELI STERN [facility] Start: 09-04-2022 End: 09-04-2022 ambulatory BRANDON MICHAEL [facility] Start: 09-02-2022 End: 09-02-[address] HOA TRAN . Facility:[facility] Start: 12-17-2021 End: 12-18-[address] HOA TRAN . Facility:[facility] Start: 10-09-2020 End: 10-12-2020 Evaluation and management of inpatient HOA TRAN Facility:[facility] Procedures Date Procedure Procedure Detail Performing Clinician Start: 10-10-2020 INTRODUCE OTH THERAP SUBST IN CORONARY ART, PERC NELI STERN Start: 10-10-2020 PLAIN RADIOGRAPHY OF MULT COR ART USING L OSM CONTRAST NELI ALVARADORBROBER Start: 10-10-2020 PLAIN RADIOGRAPHY OF R LOW EXTREM ART USING L OSM CONTRAST NELI V MOALMARBEL Payers Date Payer Category Payer Medicare [id number] 1958 Medicare [id number] 1958 Unknown [id number] 1950 Unknown [id number] [id number] 1950 Unknown [id number] 2.16.84 [id number] 1950 Unknown [id number] 2.16.84 [id number] 1950 Unknown [id number] 2.16.84 [id number] 1950 Unknown [id number] 2.16.84 [id number] Progress note 06-18-2023 Note Date & Type Note Facility 06-18-2023 Note [facility] Subjective Karla Mccollum is a 73 y.o. year old male patient being seen for 6 mo follow up CAD, coronary artery spasm, hypertension, and hyperlipidemia. He was recently admitted to [facility] for chest pain in Apr 2023. Ranexa was increased to 1,000mg bid and metoprolol was increased to 100mg daily. He has not been taking low dose aspirin. He's had to take nitroglycerin once for chest pain since hospital stay. Continues to have MILES and LLE edema. Denies palpitations and lightheadedness. Patient Active Problem List Diagnosis Cardiovascular stress test abnormal Chest pain Coronary artery spasm (CMS/HCC) Diverticular disease Dyslipidemia Hypertensive disorder Gastroenteritis Gastroesophageal reflux Hx of total shoulder replacement, left Hypertensive left ventricular hypertrophy Hypertriglyceridemia Idiopathic urticaria Iron deficiency anemia, unspecified Iron malabsorption Obstructive sleep apnea on CPAP Osteoarthritis of left shoulder Prostatitis Status post total hip replacement, left Family History Problem Relation Name Age of Onset Hypertension Mother Social History Tobacco Use Smoking status: Former Types: Cigarettes Smokeless tobacco: Never Substance Use Topics Alcohol use: Yes Comment: garcia CUELLAR Karla is seen in follow-up. He is a 73 yo man who is seen in follow up on mild CAD by cath in 2016 and hypertension. He has mild concentric LVH by echocardiogram. On 10/10/2020 he underwent cardiac catheterization for unstable angina this showed evidence of spasm in the ramus that was relieved by intracoronary nitroglycerin. 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 A CT angiogram was performed that did not show a malignant course. He has hyperlipidemia and takes atorvastatin and fenofibrate. He has history of hives for which he is on prednisone 10 mg daily. Everytime he tried to wean himself off of it he would get symptoms. Previously he had positive occult blood in stools, had colonoscopy which showed a polyp that was excised with no major issues as he says. At visit of 11/18/2020 I increased isosorbide mononitrate to 120 mg daily and reduced carvedilol to 12.5 mg twice daily given episodes of chest pain. I also started irbesartan 150 mg once daily due to elevated blood pressure. At visit 01/28/2021, due to fatigue and low heart rate I reduced carvedilol to 6.25 mg twice daily. He was last evaluated in cardiology clinic on 09/04/2022 after a follow-up visit to the emergency room with chest pain. Work-up during the ED visit was unremarkable with negative cardiac enzymes. Ranexa 500 mg twice daily was added. At visit of 11/23/2022 I change carvedilol to metoprolol succinate. Since that visit atorvastatin was increased to 40 mg daily. He was admitted to the [facility] on 05/06/2023 with chest pain and uncontrolled hypertension. Ranexa and metoprolol were increased. Today he reports that he has been doing well. He reports that he continues to have occasional sharp chest pain but has improved on Ranexa. He has mild shortness of breath on exertion. He has occasional lower extremity edema and no claudication. Review of Systems Cardiovascular: Positive for chest pain, dyspnea on exertion and leg swelling (LLE). Musculoskeletal: Positive for back pain. All other systems reviewed and are negative. Objective Visit Vitals BP 134/77 (BP Location: Left arm, Patient Position: Sitting) Pulse 73 Ht 1.778 m (5' 10 ) Wt 112 kg (247 lb) SpO2 97% BMI 35.44 kg/m??? Smoking Status Former BSA 2.35 m??? Physical Exam Constitutional: Appearance: He is well-developed. He is obese. He is not ill-appearing. HENT: Head: Normocephalic and atraumatic. Nose: Nose normal. Eyes: General: No scleral icterus. Pupils: Pupils are equal, round, and reactive to light. Neck: Thyroid: No thyromegaly. Vascular: No JVD. Cardiovascular: Rate and Rhythm: Normal rate and regular rhythm. Pulses: Radial pulses are 2+ on the right side and 2+ on the left side. Heart sounds: Normal heart sounds. No murmur heard. No friction rub. No gallop. Pulmonary: Effort: Pulmonary effort is normal. No respiratory distress. Breath sounds: Normal breath sounds. No wheezing or rales. Chest: Chest wall: No tenderness. Abdominal: General: Bowel sounds are normal. There is no distension. Palpations: Abdomen is soft. Tenderness: There is no abdominal tenderness. Musculoskeletal: General: No swelling. Cervical back: Neck supple. Skin: General: Skin is warm and dry. Neurological: General: No focal deficit present. Mental Status: He is alert and oriented to person, place, and time. Psychiatric: Mood and Affect: Mood normal. Behavior: Behavior is cooperative. Judgment: Judgment normal. Allergies No Known Allergies Medications Current Outpatient Medications (more content not included)... [facility] Progress note 11-23-2022 Note Date & Type Note Facility 11-23-2022 Note [facility] Subjective Karla Mccolulm is a 72 y.o. year old male patient being seen for Chest Pain and Coronary Artery Disease Patient here for 3 mo follow up chest pain. He was started on Ranexa in Aug by Dr. Michael. Says the chest pain doesn't occur as often and isn't as sharp, but does last longer in duration. His SOB w/ exertion remains unchanged. Patient Active Problem List Diagnosis Cardiovascular stress test abnormal Chest pain Coronary artery spasm (CMS/HCC) Diverticular disease Dyslipidemia Hypertensive disorder Gastroenteritis Gastroesophageal reflux Hx of total shoulder replacement, left Hypertensive left ventricular hypertrophy Hypertriglyceridemia Idiopathic urticaria Iron deficiency anemia, unspecified Iron malabsorption Obstructive sleep apnea on CPAP Osteoarthritis of left shoulder Prostatitis Status post total hip replacement, left Family History Problem Relation Name Age of Onset Hypertension Mother Social History Tobacco Use Smoking status: Former Types: Cigarettes Smokeless tobacco: Never Substance Use Topics Alcohol use: Yes Comment: occasional HPI Karla is seen in follow-up. He is a 72 yo man who is seen in follow up on mild CAD by cath in 2016 and hypertension. He has mild concentric LVH by echocardiogram. On 10/10/2020 he underwent cardiac catheterization for unstable angina this showed evidence of spasm in the ramus that was relieved by intracoronary nitroglycerin. 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 A CT angiogram was performed that did not show a malignant course. He has hyperlipidemia and takes atorvastatin and fenofibrate. He has history of hives for which he is on prednisone 10 mg daily. Everytime he tried to wean himself off of it he would get symptoms. Previously he had positive occult blood in stools, had colonoscopy which showed a polyp that was excised with no major issues as he says. At visit of 11/18/2020 I increased isosorbide mononitrate to 120 mg daily and reduced carvedilol to 12.5 mg twice daily given episodes of chest pain. I also started irbesartan 150 mg once daily due to elevated blood pressure. At visit 01/28/2021, due to fatigue and low heart rate I reduced carvedilol to 6.25 mg twice daily. He was last evaluated in cardiology clinic on 09/04/2022 after a follow-up visit to the emergency room with chest pain. Work-up during the ED visit was unremarkable with negative cardiac enzymes. Ranexa 500 mg twice daily was added. Today he reports that he has been doing well. He reports that he continues to have occasional sharp chest pain but has improved on Ranexa. He has mild shortness of breath on exertion. He has occasional lower extremity edema and no claudication. Review of Systems Cardiovascular: Positive for chest pain (improving), dyspnea on exertion and leg swelling. Musculoskeletal: Positive for back pain. All other systems reviewed and are negative. Objective Visit Vitals BP 116/71 (BP Location: Right arm, Patient Position: Sitting) Pulse 67 Ht 1.778 m (5' 10 ) Wt 105 kg (232 lb) SpO2 98% BMI 33.29 kg/m??? Smoking Status Former BSA 2.28 m??? Physical Exam Constitutional: Appearance: He is well-developed. He is obese. He is not ill-appearing. HENT: Head: Normocephalic and atraumatic. Nose: Nose normal. Eyes: General: No scleral icterus. Pupils: Pupils are equal, round, and reactive to light. Neck: Thyroid: No thyromegaly. Vascular: No JVD. Cardiovascular: Rate and Rhythm: Normal rate and regular rhythm. Pulses: Radial pulses are 2+ on the right side and 2+ on the left side. Heart sounds: Normal heart sounds. No murmur heard. No friction rub. No gallop. Pulmonary: Effort: Pulmonary effort is normal. No respiratory distress. Breath sounds: Normal breath sounds. No wheezing or rales. Chest: Chest wall: No tenderness. Abdominal: General: Bowel sounds are normal. There is no distension. Palpations: Abdomen is soft. Tenderness: There is no abdominal tenderness. Musculoskeletal: General: No swelling. Cervical back: Neck supple. Skin: General: Skin is warm and dry. Neurological: General: No focal deficit present. Mental Status: He is alert and oriented to person, place, and time. Psychiatric: Mood and Affect: Mood normal. Behavior: Behavior is cooperative. Judgment: Judgment normal. Allergies No Known Allergies Medications Current Outpatient Medications: amLODIPine (Norvasc) 10 mg tablet, Take 1 tablet (10 mg) by mouth once daily as directed., Disp: 90 tablet, Rfl: 3 aspirin 81 mg EC tablet, in the morning., Disp: , Rfl: atorvastatin (Lipitor) 20 mg tablet, Take 1 tablet (20 mg) by mouth at bedtime., Disp: 90 tablet, Rfl: 3 fenofibrate (Tricor) 145 mg tablet, Take 1 tablet (145 mg) by mouth in the morning., Disp: 90 tablet, Rfl: 3 irbesar (more content not included)... [facility] Progress note 09-04-2022 Note Date & Type Note Facility 09-04-2022 Note Patient here for [facility] ED for chest pain. Continues to have intermittent chest pain, sometimes requiring the use of nitroglycerin for relief. Last night he took 2 of them before he felt better. Denies SOB. He is able to exert himself and cut wood without the chest pain. Then a few hours later he'll sit down for awhile and the chest pressure will start. He has been doubling up his isosorbide at the advice of his brother, who is an RN in cardiac rehab. His brother mentioned Ranexa to him, to see if the physician thought this may be beneficial to him. He has planned to drive to [place] next Wednesday and wants to know if he's safe to do so. Review of Systems Cardiovascular: Positive for chest pain and leg swelling. All other systems reviewed and are negative. [facility] Progress note 09-04-2022 Note Date & Type Note Facility 09-04-2022 Note Cardiology Follow Up Progress Note Chief Complaint: clinic follow up HPI: Karla Mccollum is a 72 y.o. 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 Patient presents today for follow-up from ED visit due to chest pain. Patient states that over the past few weeks to months, he has been experiencing episodes of chest pain that are consistent with when he had spasm previously. These episodes occur only at rest. He is very active, chopping wood vigorously on a regular basis, and he adamantly denies any chest pain or shortness of breath with this exertion. He denies any lower extremity of orthopnea or paroxysmal nocturnal dyspnea. He denies any palpitations. He denies any near-syncope or syncope. Patient had heart cath and coronary CTA in 2020. He has mild coronary artery disease and was noted to have coronary vasospasm on heart catheterization, which was relieved with nitroglycerin. Cardiac work-up during recent ED visit was reportedly unremarkable, including cardiac enzymes. Cardiology ROS: GENERAL: Denies fever, chills, night sweats, weight loss. HEENT: Denies changes in vision, photophobia, changes in hearing, epistaxis, oral bleeding. CARDIOVASCULAR: Endorses chest pain at rest. Denies exertional chest pain, exertional dyspnea, orthopnea/PND, lower extremity edema, palpitations, lightheadedness/dizziness. RESPIRATORY: Denies SOB, coughing, wheezing GI: Denies abdominal pain, nausea/vomiting, heartburn, melena/hematochezia. RENAL: Denies dysuria, hematuria, flank pain. MSK: Denies muscle weakness/pain, arthralgias/joint pain. NEUROLOGIC: Denies LOC, weakness, numbness, headaches. SKIN: Denies abnormal rashes or bleeding. PSYCH: Denies significant anxiety, depression, sleep disturbances. Medications Current Outpatient Medications on File Prior to Visit Medication Sig Dispense Refill aspirin 81 mg EC tablet in the morning. omeprazole (PriLOSEC) [address] capsule omeprazole 40 mg capsule,delayed release take 1 capsule by mouth once daily No current facility-administered medications on file prior to visit. Allergies Patient has no known allergies. Physical Exam VITAL SIGNS: BP 127/77 (BP Location: Left arm, Patient Position: Sitting) Pulse 72 Ht 1.778 m (5' 10 ) Wt 102 kg (225 lb) SpO2 99% BMI 32.28 kg/m??? Constitutional: Well developed, Well nourished, No acute distress, Non-toxic appearance. HENT: Normocephalic, Atraumatic, Bilateral external ears have normal appearance, Bilateral TMs clear, Oropharynx moist, No oral or pharyngeal exudates, Nose appears normal, nares are patent. Eyes: PERRLA, EOMI, Conjunctiva normal, No discharge. Neck: Normal range of motion, No tenderness, Supple, No stridor. No cervical lymphadenopathy noted. Cardiovascular: Normal heart rate, Normal rhythm, No murmurs, No rubs, No gallops. Thorax & Lungs: Normal breath sounds, No respiratory distress, No wheezing, No chest tenderness to palpation. Abdomen: Bowel sounds normal, Soft, Nontender, No masses, No pulsatile masses. Skin: Warm, Dry, No erythema, No rash. Back: No tenderness, No CVA tenderness. Extremities: Intact distal pulses, No edema, No tenderness, No cyanosis, No clubbing. Musculoskeletal: Good range of motion in all major joints with 5/5 muscle strength in all muscle groups, No tenderness to palpation or major deformities noted. Neurologic: Alert & oriented x 3, Normal motor function in all major muscle groups, Normal sensory function to all major dermatomes, No focal deficits noted. Psychiatric: Affect normal, Judgment normal, Mood normal. EKG results: No results found for this or any previous visit (from the past 4464 hour(s)). Echo results: No echocardiogram results found for the past 12 months Radiology: CT heart coronary angiogram Narrative: [facility] Department of Radiology [address] [place] [address] == Patient Name: KARLA MCCOLLUM : 1950 Sex: M Age: Race: White^White Pt. Location: [address] [place] [address] Patient Status: I Ordered Date: 10/11/2020 8:30:00 AM Completed Date: 10/11/2020 11:24 AM Requesting Provider: SCOTT ACEVEDO Attending Provider: LIZETT VILLALOBOS Report Copy To: Signs & Symptoms: Other History: See Comments Comments: Other, LAD arising from right coronary cusp Exam: CTA HEART-CORONARY/ ARTERY BYPASS GRAFT WITH 3DPP == CTA HEART-CORONARY/ ARTERY BYPASS GRAFT WITH 3DPP 10/11/2020 11:24 AM CLINICAL INDICATION: Other TECHNOLOGIST COMMENTS: LAD arising from right coronary cusp abnormal cath x 2 days ago QUESTIONS PER RADIOLOGIST: Other, LAD arising from right ryan (more content not included)... [facility] Clinical Note 12-17-2021 Note Date & Type Note Facility 12-17-2021 Note CARDIAC STRESS TEST Requesting Physician: Procedure Date:12/17/2021 INDICATION: Coronary artery disease, dyspnea. METHOD: After risks and benefits were explained, the patient was brought to the Stress Lab in a resting and fasting state. He was connected to the appropriate hemodynamic and electrocardiographic monitoring. Lexiscan 0.4 mg was infused intravenously. The patient was monitored for the standard duration and discharged in a stable state. There were no complications. FINDINGS: HEMODYNAMICS: Resting heart rate was 63 beats per minute, increasing to a maximum of 85 beats per minute. Blood pressure was 124/72 at baseline, decreasing to 118/62. The patient had no significant symptoms during the test. ELECTROCARDIOGRAPHY: Rest EKG: Sinus rhythm, 63 beats per minute, no significant ST or T wave changes. During infusion and recovery: No significant ST-T wave changes noted. Infrequent premature ventricular contractions seen. FINDINGS/IMPRESSIONS: 1. No ischemic EKG changes seen on Lexiscan Pharmacological Stress Test. 2. Infrequent premature ventricular contractions seen. 3. Nuclear images are to be read, interpreted and reported in a separate dictation. [facility] Summary Purpose Family History No Family History Records FoundNo Family History Records FoundNo Family History Records FoundNo Family History Records FoundNo Family History Records Found Advance Directives No Advanced Directives Records FoundNo Advanced Directives Records FoundNo Advanced Directives Records FoundNo Advanced Directives Records FoundNo Advanced Directives Records Found Hospital Course Note MR#: [id number] [facility] Pt. Name: Karla Mccollum Admitted: 10/09/2020 Discharged: 10/12/2020 Date of : 1950 Physician: Chris Medina M.D. DISCHARGE SUMMARY PRIMARY DIAGNOSES: 1. Chest pain. 2. Anomalous of the LAD. 3. Hypertension. 4. Dyslipidemia. 5. Chronic diastolic congestive heart failure. SECONDARY DIAGNOSIS: Obstructive sleep apnea. HISTORY OF PRESENT ILLNESS AND HOSPITAL COURSE: The patient is a 70-year-old male with a past medical history of hypertension, dyslipidemia, and obstructive sleep apnea who presented with chest pain and admitted for left heart catheterization. As per patient, the patient was having exertional shortness of breath with diaphoresis and chest pain for the last 2 weeks. His blood pressure was also uncontrolled. His blood pressure was in the 180s with an episode of diaphoresis and feeling hot during the episode. The patient had a normal cardiac catheterization back in 2016, stress test was done in [place] (more content not included)... Additional Source Comments (unrecognized sect ion and content) No Status Records FoundNo Status Records FoundNo Status Records FoundNo Status Records FoundNo Status Records Found INFORMATION SOURCE (unrecogn ized section and content) DATE CREATED AUTHOR 09/22/2020 [facility] [place] DATE CREATED AUTHOR AUTHOR'S ORGANIZ ATION 10/15/2020 [facility] DATE CREATED AUTHOR AUTHOR'S ORGANIZ ATION 11/30/2022 [facility] DATE CREATED AUTHOR AUTHOR'S ORGANIZ ATION 06/20/2023 [facility] DATE CREATED AUTHOR AUTHOR'S ORGANIZ ATION 12/03/2023 [facility] EPIC FOR RECORDS PERTAINING TO PATIENTS WHO ARE OR HAVE BEEN ENROLLED IN A CHEMICAL DEPENDENCY/SUBSTANCEABUSE PROGRAM, SOME INFORMATION MAY BE OMITTED. This clinical summary was aggregated from multiple sources. Caution should be exercised in using it in the provision of clinical care. This summary normalizes information from multiple sources, and as a consequence, information in this document may materially change the coding, format and clinical context of patient data. In addition, data may be omitted in some cases. CLINICAL DECISIONS SHOULD BE BASED ON THE PRIMARY CLINICAL RECORDS. [employer] provides no warranty or guarantee of the accuracy or completeness of information in this document.
[2023-12-16 06:55] LABS: Cholesterol 151 mg/dL (<=200); HDL Cholesterol 38 mg/dL (40-60); Triglycerides 222 mg/dL (<=150); VLDL CHOLESTEROL 44.4 mg/dL
== END 2023-12-16 06:33 | disposition home or self-care (01) ==
LOC: LAB 06:32
PROVIDERS: PCP Family Medicine; Visit Provider Internal Medicine Interventional Cardiology
DX: E78.2 Mixed hyperlipidemia (principal)
CPT/HCPCS: 36415; 80061

== ENCOUNTER 2024-05-05 09:18 | Outpatient (OUT) | payer MEDICARE, SELFPAY ==
--- NOTE | 2024-05-05 09:23 | US_ITS ---
The [address] [address] Patient Name: KARLA CUENCA MRN: [id number] date: 1950 Sex: M Assigned Patient Location: [place] Current Patient Location: Accession/Order Number: [id number] Exam Date: 05/05/2024 09:30 Report Date: 05/08/2024 12:02 At the request of: HOA BRIAN Procedure: US thyroid EXAMINATION: US thyroid HISTORY: Abnormal findings on diagnostic imaging COMPARISON: 12/03/2023 TECHNIQUE: Sonographic images of the thyroid gland were obtained. FINDINGS: The right thyroid lobe measures 5.3 x 2.3 x 1.2 cm. Heterogeneous echotexture with multiple nodules. The thyroid isthmus measures 4.4 mm. No focal nodule The left thyroid lobe measures 3.9 x 1.7 x 1.4 cm. Heterogeneous echotexture with multiple nodules The 2 most suspicious nodules: Nodule 1: Right thyroid lobe. 1.0 x 0.8 x 1.2 cm. Solid, hypoechoic, tall, smooth margins, no consultations. TR 5 Nodule 2: Left thyroid lobe. 1.0 x 1.2 x 0.8 cm. Solid, hypoechoic, wide, smooth margins, no calcifications. TR 4 US/US thyroid IMPRESSION: Stable multinodular thyroid gland TI-RADS: The [employer] TI-RADS committee's white paper recommendations for thyroid lesions classified as TR5 (highly suspicious) are listed below: > 0.5 cm. Annual ultrasound follow-up for up to 5 years. > 1.0 cm. FNA. J. Am Warner Radiol 2017;14:587-595. Electronically authenticated by: BISMARK REDD Date: 05/08/2024 12:02
--- OUTSIDE RECORDS SUMMARY | 2024-05-05 09:40 | XMS_ITS | CCD ---
Author Organization [facility] Care Team Providers Care Maintenance Journeyman Name Role Phone HOA TRAN Primary Care Unavailable UNKNOWN, PROVIDER Referring Unavailable GRISELDA, HANI Admitting Unavailable GRISELDA, BOBBII Attending Unavailable MD Procedure Practitioner Unavailab le UNKNOWN, PROVIDER Surgeon Unavailable SNEHAL ., DR CAMARA Primary Care Unavailable DIAB ., KWADWO Admitting Unavailable DIAB ., KWADWO Attending Unavailable West, Bismark Consulting Unavailable DIAB ., KWADWO Consulting Unavailable MOUKARBEL, DR QUINTEROS Admitting Unavailable MOUKARBEL, DR QUINTEROS Attending Unavailable HOY ., DR CAMARA Primary Care Unavailable MOUKARBEL, DR QUINTEROS Consulting Unavailable HOY ., DR CAMARA Admitting Unavailable HOY ., DR CAMARA Attending Unavailable HOY ., DR CAMARA Primary Care Unavailable HOY ., DR CAMARA Consulting Unavailable West, Bismark Consulting Unavailable PETITTI, KAMRAN Norman Attending Unavailable West, Bismark Pierre Admitting Unavailable WestBismark V Attending Unavailable MOUKARBEL, NELI Attending Unavailable MOUKARBEL, NELI Attending Unavailable Problems Active Problems Problem Classification Problem Date Documented Date Episodic/Chronic 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; 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] Onset: 12-22-2023 Chronic Coronary atherosclerosis and other heart disease [...] Translations: [ESSENTIAL PRIMARY HYPERTENSION] Onset: 09-03-2022 Chronic Nonspecific chest pain (4 sources) Chest pain, unspecified; Translations: [Other chest pain] Onset: 09-02-2022 Episodic Other aftercare (1 source) senior living (current) use of aspirin; Translations: [RETIREMENT CURRENT USE OF ASPIRIN] Onset: 09-03-2022 Episodic Other aftercare (1 source) 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; Translations: [OTH INDUSTRIAL RELATIONS OFFICER CURRENT DRUG THERAPY] Onset: 09-03-2022 Episodic Residual codes; unclassified (1 source) Sleep apnea, unspecified; Translations: [SLEEP APNEA UNSPECIFIED] Onset: 09-03-2022 Chronic Residual codes; unclassified (1 source) Acquired absence of other specified parts of digestive tract; Translations: [ACQ ABSENCE OTH PART DIGESTV TRACT] Onset: 09-03-2022 Episodic Unclassified (1 source) CONTACT W/AND (SUSP) EXPOS COVID-19; Translations: [CONTACT W/AND (SUSP) EXPOS COVID-19] Onset: 09-03-2022 Past or Other Problems Problem Classification Problem Date Documented Da te Episodic/Chronic Other lower respiratory disease (4 sources) Dyspnea, unspecified; Translations: [DYSPNEA UNSPECIFIED] Onset: 12-17-2021 Episodic Results Test Name Value Interpretation Reference Range Facility Office [facility] 12-22-2023 Follow-up visit [id number] Karla Mccollum 1950 M Date Provider Department Center 12/22/2023 NELI THRASHER VER[facility] Family History Problem Relation Age of Onset Hypertension Mother Family Status - Relation Status Age at Mother Level of Service:15112 MD OFFICE/OUTPATIENT ESTABLISHED LOW MDM 20 MIN Normal [facility] Rudolph 12-15-2023 L Specimen: BC Received: 12/16/23 Status: EDWINA Spears Num: [id number] Spec Type: Cytology Subm Dr: Bismark Redd MD Tissues: A FNA SLIDES NOPATH (LT SUBMENT MASS) Procedures: HE/2, Cyto Int and Re, PAPSTN/7 Age/ Patient Sex Location Account Attending Physician Karla Mccollum 73/M LABELL [id number] Bismark Redd MD SPEC NUM: [id number] RECD: 12/16/23 STATUS: EDWINA SPEARS NUM: [id number] SEAN: 12/15/23- SUBM DR: Bismark Redd MD ENTERED: 12/16/23-1403 [facility] DR: Lili,Lab Hoa Tran MD SPEC TYPE: Cytology DEPT: [facility] ENTERED BY: [id number] RECV BY: [id number] ORDERED: HE/2, Cyto Int and Re, PAPSTN/7 ORDERED: HE/2, Cyto Int and Re, PAPSTN/7 Pathological Diagnosis Left submental mass, fine needle aspiration: - Negative for malignancy. - Sparse fat with blood and a few foamy macrophages. - Please see Note. Note: Possibilities would include a lipoma, as well as fat necrosis. The specimen is limited by low overall cellularity. Clinical correlation is suggested. Gross Description Received in Cytolyt labeled with the patient's name, date of and left submental mass per requisition is <1 ml colorless clear fixed fluid. 1 Thin Prep slides are prepared. 1 cell blocks are prepared. 6 spray fixed smears to be stained pap are additionally received. (CC/nh) CPT Codes 68889 -------- -------- Specimen: [id number] Received: 12/16/23 Status: EDWINA Regan Num: [id number] Spec Type: Cytology Subm Dr: Bismark Redd MD Tissues: A FNA SLIDES NOPATH (LT SUBMENT MASS) Procedures: HE/2, Cyto Int and Re, PAPSTN/7 -------- Patient: Karla Mccollum [id number] (Continued) -------- Signed (signature on file) Bismark Quiñonez MD 12/17/23 1054 Normal [facility] Office [facility] 06-18-2023 Follow-up visit [id number] Karla Mccollum 1950 [facility] Provider Department [place] 06/18/2023 NELI THRASHER [facility] Family History Problem Relation Age of Onset Hypertension Mother Family Status - Relation Status Age at Mother Level of Service:96456 MD OFFICE/OUTPATIENT ESTABLISHED MOD MDM 30-39 MIN Normal [facility] LIPID PROFILEon 11-24-2022 CHOL-HDL RATIO NORM SEE BELOW Normal [facility] Comment on above: Result Comment: 3.3 - 4.4 LOW RISK 4.4 - 7.1 AVERAGE RISK 7.1 - 11.0 MODERATE RISK >11.0 HIGH RISK Performed By: #### L IPID #### [facility] [address] [address] [address] Paige Tee Cholesterol [Mass/Vol] 151 mg/dL Normal <=200 [facility] Comment on above: Performed By: #### L IPID #### [facility] [address] [address] [address] Paige Tee Cholesterol in HDL [Mass/Vol] 40 mg/dL Normal 40-60 [facility] Comment on above: Performed By: #### L IPID #### [facility] [address] [address] [address] Paige Tee Cholesterol in LDL [Mass/Vol] 87.4 mg/dL Normal [facility] Comment on above: Performed By: #### L IPID #### [facility] [address] [address] [address] Paige Tee Cholesterol.total/C holesterol in HDL [Mass ratio] 3.8 {ratio} Normal [facility] Comment on above: Performed By: #### L IPID #### [facility] [address] [address] [address] Paige Tee HDL NORMAL > or = 60 mg/dl - LO W CARDIOVASCULAR RISK <40 mg/dl - HIGH CARDIOVASCULAR RISK Normal [facility] Comment on above: Performed By: #### L IPID #### [facility] [address] [place] [address] Dr. Paige Tee LDL CALC NORMAL SEE BELOW Normal [facility] Comment on above: Result Comment: <100 mg/dl OPTIMAL 100 - 129 mg/dl NEAR OR ABOVE OPTIMAL 130 - 159 mg/dl BORDERLINE HIGH 160 - 189 mg/dl HIGH >190 mg/dl VERY HIGH Performed By: #### L IPID #### [facility] [address] [place] [address] Dr. Paige Tee Triglyceride [Mass/Vol] 118 mg/dL Normal <=150 [facility] Comment on above: Performed By: #### L IPID #### [facility] [address] [address] [address] Paige Tee VLDL CALC 23.6 mg/dL Normal [facility] Comment on above: Performed By: #### L IPID #### [facility] [address] [address] [address] Paige Tee CBC AUTO DIFFon 09-02-2022 BASO # 0.1 103/ul Normal 0.0-0.1 [facility] Comment on above: Performed By: #### C BC #### [facility] [address] [address] [address] Paige Tee Basophils/100 WBC (Bld) 0.6 % Normal 0.2-2.0 [facility] Comment on above: Performed By: #### C BC #### [facility] [address] [place] [address] Dr. Paige Tee EO # 0.4 103/ul Normal 0.0-0.7 [facility] Comment on above: Performed By: #### C BC #### [facility] [address] [place] [address] Dr. Paige Tee Eosinophils/100 WBC (Bld) 4.0 % Normal 0.9-7.0 [facility] Comment on above: Performed By: #### C BC #### [facility] [address] [place] [address] Dr. Paige Tee Erythrocyte distribution width (RBC) [Ratio] 13.8 % Normal 11.0-15.0 [facility] Comment on above: Performed By: #### C BC #### [facility] [address] [place] [address] Dr. Paige Tee Hematocrit (Bld) [Volume fraction] 35.9 % Critically low 42.0-54.0 [facility] Comment on above: Performed By: #### C BC #### [facility] [address] [place] [address] Dr. Paige Tee Hemoglobin (Bld) [Mass/Vol] 11.9 g/dL Critically low 14.0-18.0 [facility] Comment on above: Performed By: #### C BC #### [facility] [address] [place] [address] Dr. Paige Tee IG # 0.04 10e3/ul Critically high 0.00-0.03 [facility] Comment on above: Performed By: #### C BC #### [facility] [address] [place] [address] Dr. Paige Tee IG % 0.4 % Normal 0.0-0.5 [facility] Comment on above: Performed By: #### C BC #### [facility] [address] [place] [address] Dr. Paige Tee LYMPH # 3.2 103/ul Normal 1.2-3.8 [facility] Comment on above: Performed By: #### C BC #### [facility] [address] [place] [address] Dr. Paige Tee Lymphocytes/100 WBC (Bld) 30.0 % Normal 20.5-60.0 [facility] Comment on above: Performed By: #### C BC #### [facility] [address] [place] [address] Dr. Paige Tee MANUAL DIFF REQ NO Normal [facility] Comment on above: Performed By: #### C BC #### [facility] [address] [place] [address] Dr. Paige Tee MCH (RBC) [Entitic mass] 27.9 pg Normal 25.9-34.0 [facility] Comment on above: Performed By: #### C BC #### [facility] [address] [place] [address] Dr. Paige Tee MCHC (RBC) [Mass/Vol] 33.1 g/dL Normal 29.9-35.2 [facility] Comment on above: Performed By: #### C BC #### [facility] [address] [place] [address] Dr. Paige Tee MCV (RBC) [Entitic vol] 84.3 fL Normal 80.0-94.0 [facility] Comment on above: Performed By: #### C BC #### [facility] [address] [place] [address] Dr. Paige Tee MONO # 0.8 103/ul Normal 0.3-0.8 [facility] Comment on above: Performed By: #### C BC #### [facility] [address] [place] [address] Dr. Paige Tee Monocytes/100 WBC (Bld) 7.5 % Normal 1.7-12.0 [facility] Comment on above: Performed By: #### C BC #### [facility] [address] [place] [address] Dr. Paige Tee NEUT # 6.2 103/ul Normal 1.4-6.5 [facility] Comment on above: Performed By: #### C BC #### [facility] [address] [address] [address] Paige Tee Neutrophils/100 WBC (Bld) 57.5 % Normal 43.0-75.0 [facility] Comment on above: Performed By: #### C BC #### [facility] [address] [address] [address] Paige Tee Platelet mean volume (Bld) [Entitic vol] 9.5 fL Normal 9.5-13.5 [facility] Comment on above: Performed By: #### C BC #### [facility] [address] [address] [address] Paige Tee PLT 314 103/ul Normal 150-450 [facility] Comment on above: Performed By: #### C BC #### [facility] [address] [place] [address] Dr. Paige Tee RBC 4.26 106/ul Critically low 4.70-6.10 [facility] Comment on above: Performed By: #### C BC #### [facility] [address] [address] [address] Paige Tee WBC 10.8 103/ul Normal 4.0-11.0 [facility] Comment on above: Performed By: #### C BC #### [facility] [address] [place] [address] Dr. Paige Tee Cov[facility]19 [facility]on [facility]16 SARS-CoV-2 (COVID-19) RNA UMER+probe Ql (Unsp spec) Not detected Normal NOT DETECTED [facility] Comment on above: Result Comment: When diagnostic [...] for this test is supported by the [place] of [employer] and Human Service's declaration that [...] longer be used). Performed By: #### C VDTB #### [facility] [address] [place] [address] Dr. Paige Tee PROF CHEM 8 (BAS METB)on Anion gap [Moles/Vol] 13.7 mmol/L Normal [facility] Comment on above: Performed By: #### H TAMMI, BMP #### [facility] [address] [place] [address] Dr. Paige Tee Calcium [Mass/Vol] 9.1 mg/dL Normal 8.5-10.1 [facility] Comment on above: Performed By: #### H TAMMI, BMP #### [facility] [address] [place] [address] Dr. Paige Tee Chloride [Moles/Vol] 104 mmol/L Normal 98-107 [facility] Comment on above: Performed By: #### H TAMMI, BMP #### [facility] [address] [place] [address] Dr. Paige Tee CO2 [Moles/Vol] 24.4 mmol/L Normal 21.0-32.0 [facility] Comment on above: Performed By: #### H TAMMI, BMP #### [facility] [address] [place] [address] Dr. Paige Tee Creatinine [Mass/Vol] 1.11 mg/dL Normal 0.70-1.30 [facility] Comment on above: Performed By: #### H TAMMI, BMP #### [facility] [address] [place] [address] Dr. Paige Tee EGFR-AF DUTCH >60 Normal >=60 [facility] Comment on above: Performed By: #### H TAMMI, BMP #### [facility] [address] [address] [address] Paige Tee EGFR-NON AF DUTCH >60 Normal >=60 [facility] Comment on above: Performed By: #### H TAMMI, BMP #### [facility] [address] [address] [address] Paige Tee Glucose [Mass/Vol] 115 mg/dL Critically high 74-106 T [facility] Comment on above: Performed By: #### H TAMMI, BMP #### [facility] [address] [place] [address] Dr. Paige Tee Potassium [Moles/Vol] 4.1 mmol/L Normal 3.5-5.1 [facility] Comment on above: Performed By: #### H TAMMI, BMP #### [facility] [address] [place] [address] Dr. Paige Tee Sodium [Moles/Vol] 138 mmol/L Normal 136-145 [facility] Comment on above: Performed By: #### H TAMMI, BMP #### [facility] [address] [place] [address] Dr. Paige eTe Urea nitrogen [Mass/Vol] 20.0 mg/dL Critically high 7.0-18.0 [facility] Comment on above: Performed By: #### H TAMMI, BMP #### [facility] [address] [place] [address] Dr. Paige Tee Urea nitrogen/Creatinine [Mass ratio] 18.0 mg/mg Normal [facility] Comment on above: Performed By: #### H TAMMI, BMP #### [facility] [address] [place] [address] Dr. Paige Tee TROPONIN, HIGH SENSITIVITYon 09-02-2022 HSTROP 4.1 pg/mL Normal 4.0-76.1 [facility] Comment on above: Result Comment: CUT- OFF POINTS HAVE BEEN ESTABLISHED BASED ON THE FOURTH UNIVERSAL DEFINITIONS OF MYOCARDIAL INFARCTION. THE UPPER REFERENCE LIMIT (URL) OF TROPONIN, DEFINED THE 99TH PERCENTILE OF cTnI DISTRIBUTION IN A REFERENCE POPULATION, HAS BEEN CONFIRMED THE DECISION THRESHOLD FOR DC DIAGNOSIS. Performed By: #### H ANJUPN #### [facility] [address], [place] [address] Dr. Paige Tee HSTROP 4.5 pg/mL Normal 4.0-76.1 [facility] Comment on above: Result Comment: CUT- OFF POINTS HAVE BEEN ESTABLISHED BASED ON THE FOURTH UNIVERSAL DEFINITIONS OF MYOCARDIAL INFARCTION. THE UPPER REFERENCE LIMIT (URL) OF TROPONIN, DEFINED THE 99TH PERCENTILE OF cTnI DISTRIBUTION IN A REFERENCE POPULATION, HAS BEEN CONFIRMED THE DECISION THRESHOLD FOR DC DIAGNOSIS. Performed By: #### H STROBUBBA, [facility] #### [facility] [address], [place] [address] Dr. Paige Tee XR CHEST 1 Von [...] by: BISMARK REDD Date: 2022-09-02 12:[address] [facility] STRESS/REST MULTIon 12-17 NM STRESS/REST MULTI Patient: KARLA MCCOLLUM Exam Date: 12/17/2021 : 1950 Gender:M Ordering : DR HOA TRAN . Admission #: [id number] Family : Order #: [id number] CLICK HERE TO VIEW EXAM RADIOLOGY REPORT [...] Redd MD on 12/18/2021 at 09:10 Normal [facility] BASIC METABOLIC PANELon - Calcium [Mass/Vol] 8.9 mg/dL Normal 8.6-10.3 [facility] Comment on above: Order Comment: No: D o not add to previous draw Performed By: #### 0 0071 #### [facility] [address] [place] [address], [facility] Chloride [Moles/Vol] 105 mmol/L Normal 98-107 [facility] Comment on above: Order Comment: No: D o not add to previous draw Performed By: #### 0 0071 #### [facility] [address] [place] [address], [place] CO2 [Moles/Vol] 25 mmol/L Normal 21-31 [facility] Comment on above: Order Comment: No: D o not add to previous draw Performed By: #### 0 0071 #### [facility] [address] [place] [address], [place] Creatinine [Mass/Vol] 0.82 mg/dL Normal 0.70-1.30 [facility] Comment on above: Order Comment: No: D o not add to previous draw Performed By: #### 0 0071 #### [facility] [address] [place] [address], [place] GFR/1.73 sq M predicted among blacks MDRD (S/P/Bld) [Vol rate/Area] mL/min/{1.73_m2} Normal >60 [facility] Comment on above: Order Comment: No: D o not add to previous draw Performed By: #### 0 0071 #### [facility] [address] [place] [address], [place] GFR/1.73 sq M predicted among non-blacks MDRD (S/P/Bld) [Vol rate/Area] mL/min/{1.73_m2} Normal >60 [facility] Comment on above: Order Comment: No: D o not add to previous draw Performed By: #### 0 0071 #### [facility] [address] [place] [address], [place] Glucose [Mass/Vol] 104 mg/dL High 70-100 [facility] Comment on above: Order Comment: No: D o not add to previous draw Performed By: #### 0 0071 #### [facility] [address] [place] [address], [place] Potassium [Moles/Vol] 3.6 mmol/L Normal 3.5-5.1 [facility] Comment on above: Order Comment: No: D o not add to previous draw Performed By: #### 0 0071 #### [facility] [address] [place] [address], [place] Sodium [Moles/Vol] 137 mmol/L Normal 136-145 [facility] Comment on above: Order Comment: No: D o not add to previous draw Performed By: #### 0 0071 #### [facility] [address] [place] [address], [place] Urea nitrogen [Mass/Vol] 13 mg/dL Normal 7-25 [facility] Comment on above: Order Comment: No: D o not add to previous draw Performed By: #### 0 0071 #### [facility] [address] [place] [address], [facility] CBC COMPLETE BLOOD COUNTon 10-12-2020 Erythrocyte distribution width (RBC) [Ratio] 13.1 % Normal 11.5-15.0 [facility] Comment on above: Order Comment: No: D o not add to previous draw Performed By: #### 3 5200 #### [facility] [address] [place] [id number], [facility] Hematocrit (Bld) [Volume fraction] 36.6 % Low 39.0-50.0 [facility] Comment on above: Order Comment: No: D o not add to previous draw Performed By: #### 3 5200 #### [facility] [address] [place] [address], [facility] Hemoglobin (Bld) [Mass/Vol] 11.6 g/dL Low 13.0-17.0 [facility] Comment on above: Order Comment: No: D o not add to previous draw Performed By: #### 3 5200 #### [facility] [address] [place] [address], [facility] MCH (RBC) [Entitic mass] 28.1 pg Normal 27.0-33.0 [facility] Comment on above: Order Comment: No: D o not add to previous draw Performed By: #### 3 5200 #### [facility] [address] [place] [id number], [facility] MCHC (RBC) [Mass/Vol] 31.7 g/dL Low 32.0-35.0 [facility] Comment on above: Order Comment: No: D o not add to previous draw Performed By: #### 3 5200 #### [facility] [address] [place] [address], [facility] MCV (RBC) [Entitic vol] 88.6 fL Normal 82.0-98.0 [facility] Comment on above: Order Comment: No: D o not add to previous draw Performed By: #### 3 5200 #### [facility] [address] [place] [address], [facility] Nucleated RBC/100 WBC (Bld) [Ratio] 0 % Normal 0-0 [facility] Comment on above: Order Comment: No: D o not add to previous draw Performed By: #### 3 5200 #### [facility] [address] [place] [address], [facility] PLAT CNT 289 10*3/uL Normal 150-400 [facility] Comment on above: Order Comment: No: D o not add to previous draw Performed By: #### 3 5200 #### [facility] [address] [place] [address], [facility] RBC (Bld) [#/Vol] 4.13 10*6/uL Low 4.20-5.70 [facility] Comment on above: Order Comment: No: D o not add to previous draw Performed By: #### 3 5200 #### [facility] [address] [place] [address], [facility] WBC (Bld) [#/Vol] 10.27 10*3/uL Normal 4.00-10.60 [facility] Comment on above: Order Comment: No: D o not add to previous draw Performed By: #### 3 5200 #### [facility] [address] [place] [address], [facility] BASIC METABOLIC PANELon -2 Calcium [Mass/Vol] 9.2 mg/dL Normal 8.6-10.3 [facility] Comment on above: Order Comment: No: D o not add to previous draw Performed By: #### 0 0071 #### [facility] [address] [place] [id number], [facility] Chloride [Moles/Vol] 106 mmol/L Normal 98-107 [facility] Comment on above: Order Comment: No: D o not add to previous draw Performed By: #### 0 0071 #### [facility] [address] [place] [address], [place] CO2 [Moles/Vol] 27 mmol/L Normal 21-31 [facility] Comment on above: Order Comment: No: D o not add to previous draw Performed By: #### 0 0071 #### [facility] [address] [place] [address], [place] Creatinine [Mass/Vol] 0.84 mg/dL Normal 0.70-1.30 [facility] Comment on above: Order Comment: No: D o not add to previous draw Performed By: #### 0 0071 #### [facility] [address] [place] [address], [place] GFR/1.73 sq M predicted among blacks MDRD (S/P/Bld) [Vol rate/Area] mL/min/{1.73_m2} Normal >60 [facility] Comment on above: Order Comment: No: D o not add to previous draw Performed By: #### 0 0071 #### [facility] [address] [place] [address], [place] GFR/1.73 sq M predicted among non-blacks MDRD (S/P/Bld) [Vol rate/Area] mL/min/{1.73_m2} Normal >60 [facility] Comment on above: Order Comment: No: D o not add to previous draw Performed By: #### 0 0071 #### [facility] [address] [place] [address], [place] Glucose [Mass/Vol] 101 mg/dL High 70-100 [facility] Comment on above: Order Comment: No: D o not add to previous draw Performed By: #### 0 0071 #### [facility] [address] [place] [address], [place] Potassium [Moles/Vol] 3.8 mmol/L Normal 3.5-5.1 [facility] Comment on above: Order Comment: No: D o not add to previous draw Performed By: #### 0 0071 #### [facility] [address] [place] [address], [facility] Sodium [Moles/Vol] 139 mmol/L Normal 136-145 [facility] Comment on above: Order Comment: No: D o not add to previous draw Performed By: #### 0 0071 #### [facility] [address] [place] [address], [facility] Urea nitrogen [Mass/Vol] 15 mg/dL Normal 7-25 [facility] Comment on above: Order Comment: No: D o not add to previous draw Performed By: #### 0 0071 #### [facility] [address] [place] [address], [facility] CBC COMPLETE BLOOD COUNTon 0 10-11-2020 Erythrocyte distribution width (RBC) [Ratio] 12.9 % Normal 11.5-15.0 [facility] Comment on above: Order Comment: No: D o not add to previous draw Performed By: #### 3 0 #### [facility] [address] [place] [address], [facility] Hematocrit (Bld) [Volume fraction] 38.6 % Low 39.0-50.0 [facility] Comment on above: Order Comment: No: D o not add to previous draw Performed By: #### 3 5200 #### [facility] [address] [place] [address], [place] Hemoglobin (Bld) [Mass/Vol] 12.3 g/dL Low 13.0-17.0 [facility] Comment on above: Order Comment: No: D o not add to previous draw Performed By: #### 3 5200 #### [facility] [address] [place] [address], [place] MCH (RBC) [Entitic mass] 28.5 pg Normal 27.0-33.0 [facility] Comment on above: Order Comment: No: D o not add to previous draw Performed By: #### 3 5200 #### [facility] [address] MCHC (RBC) [Mass/Vol] 31.9 g/dL Low 32.0-35.0 [facility] Comment on above: Order Comment: No: D o not add to previous draw Performed By: #### 3 5200 #### [facility] [address] [facility] [place] [address], [facility] MCV (RBC) [Entitic vol] 89.6 fL Normal 82.0-98.0 [facility] Comment on above: Order Comment: No: D o not add to previous draw Performed By: #### 3 5200 #### [facility] [address] Nucleated RBC/100 WBC (Bld) [Ratio] 0 % Normal 0-0 [facility] Comment on above: Order Comment: No: D o not add to previous draw Performed By: #### 3 5200 #### [facility] [address] [facility] [place] [address], [facility] PLAT CNT 279 10*3/uL Normal 150-400 [facility] Comment on above: Order Comment: No: D o not add to previous draw Performed By: #### 3 5200 #### [facility] [address] [facility] [place] [address], [facility] RBC (Bld) [#/Vol] 4.31 10*6/uL Normal 4.20-5.70 [facility] Comment on above: Order Comment: No: D o not add to previous draw Performed By: #### 3 5200 #### [facility] [address] [place] [id number], [facility] WBC (Bld) [#/Vol] 10.25 10*3/uL Normal 4.00-10.60 [facility] Comment on above: Order Comment: No: D o not add to previous draw Performed By: #### 3 5200 #### [address] CTA HEART-CORONARY/ ARTERY B YPASS GRAFT WITH 3DPPon 10-11-2020 CTA HEART-CORONARY/ ARTERY BYPASS GRAFT WITH 3DPP [facility] Department of Radiology [address] [place] [id number] Patient Name: KARLA MCCOLLUM : 1950 Sex: M Age: Race: White Pt. Location: [id number] Patient Status: I Ordered Date: 10/11/2020 8:30:00 [...] otherwise. Electronically signed: Asa Hill. 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 Division of Service Date: 10/10/2020 Cardiology Birthdate: 1950 Adult Cardiovascular Room #: 3AB [id number] [address] [place] [address] Cardiovascular Laboratory Report INDICATION: The patient is [...] signed informed consent. He was brought to dental laboratory worker in a fasting state. The right wrist area was prepped and draped in usual fashion. Modified Satnam's test was favorable on the right. Access in the right radial artery was obtained using micropuncture technique. A 6-Cymraes x 11 cm Hydrophilic sheath was advanced, [...] adequate location, this was upsized to a 6-Cymraes x 11 cm sheath. Bilateral selective coronary angiography was then performed using 6-Cymraes JL3.5 and JR4 diagnostic catheters. The 6-Cymraes JR4 diagnostic catheter was then used to [...] P/Neli Stern M.D. Date Trans: 10/11/2020 06:09 A/kevino [id number] cc: Hoa Tran M.D. [address], [facility] [id number] Neli Stern M.D. Heart Failure/ Transplant Mailstop [address] [facility] [address] Normal [facility] BASIC METABOLIC PANELon 09-17 Calcium [Mass/Vol] 9.0 mg/dL Normal 8.6-10.3 [facility] Comment on above: Order Comment: No: D o not add to previous draw Performed By: #### 0 0071, 84186 #### [facility] [address] [place] [address], [place] Chloride [Moles/Vol] 103 mmol/L Normal 98-107 [facility] Comment on above: Order Comment: No: D o not add to previous draw Performed By: #### 0 0071, 83584 #### [facility] [address] [place] [address], [place] CO2 [Moles/Vol] 25 mmol/L Normal 21-31 [facility] Comment on above: Order Comment: No: D o not add to previous draw Performed By: #### 0 0071, 32539 #### [facility] [address] [place] [address], [place] Creatinine [Mass/Vol] 0.87 mg/dL Normal 0.70-1.30 [facility] Comment on above: Order Comment: No: D o not add to previous draw Performed By: #### 0 0071, 73679 #### [facility] [address] [place] [address], [place] GFR/1.73 sq M predicted among blacks MDRD (S/P/Bld) [Vol rate/Area] mL/min/{1.73_m2} Normal >60 [facility] Comment on above: Order Comment: No: D o not add to previous draw Performed By: #### 0 0071, 29151 #### [facility] [address] [place] [address], [place] GFR/1.73 sq M predicted among non-blacks MDRD (S/P/Bld) [Vol rate/Area] mL/min/{1.73_m2} Normal >60 [facility] Comment on above: Order Comment: No: D o not add to previous draw Performed By: #### 0 70, 02150 #### [facility] [address] [place] [address], [place] Glucose [Mass/Vol] 109 mg/dL High 70-100 [facility] Comment on above: Order Comment: No: D o not add to previous draw Performed By: #### 0 0071, 11054 #### [facility] [address] [place] [address], [place] Potassium [Moles/Vol] 3.5 mmol/L Normal 3.5-5.1 [facility] Comment on above: Order Comment: No: D o not add to previous draw Performed By: #### 0 0071, 67669 #### [facility] [address] [place] [address], [place] Sodium [Moles/Vol] 137 mmol/L Normal 136-145 [facility]: Order Comment: No: D o not add to previous draw Performed By: #### 0 007, 05371 #### [facility] [address] [place] [address], [facility] Urea nitrogen [Mass/Vol] 14 mg/dL Normal 7-25 [facility] Comment on above: Order Comment: No: D o not add to previous draw Performed By: #### 0 70, 09912 #### [facility] [address] [place] [address], [facility] CBC COMPLETE BLOOD COUNTon 0 10-10-2020 Erythrocyte distribution width (RBC) [Ratio] 13.2 % Normal 11.5-15.0 [facility] Comment on above: Order Comment: No: D o not add to previous draw Performed By: #### 3 5200 #### [facility] [address] [place] [address], [facility] Hematocrit (Bld) [Volume fraction] 38.2 % Low 39.0-50.0 [facility] Comment on above: Order Comment: No: D o not add to previous draw Performed By: #### 3 5200 #### [facility] [address] [place] [address], [facility] Hemoglobin (Bld) [Mass/Vol] 12.2 g/dL Low 13.0-17.0 [facility] Comment on above: Order Comment: No: D o not add to previous draw Performed By: #### 3 5200 #### [facility] [address] [place] [address], [facility] MCH (RBC) [Entitic mass] 28.6 pg Normal 27.0-33.0 [facility] Comment on above: Order Comment: No: D o not add to previous draw Performed By: #### 3 5200 #### [facility] [address] [place] [address], [facility] MCHC (RBC) [Mass/Vol] 31.9 g/dL Low 32.0-35.0 [facility] Comment on above: Order Comment: No: D o not add to previous draw Performed By: #### 3 5200 #### [facility] [address] [place] [address], [facility] MCV (RBC) [Entitic vol] 89.5 fL Normal 82.0-98.0 [facility] Comment on above: Order Comment: No: D o not add to previous draw Performed By: #### 3 5200 #### [facility] [address] [place] [address], [facility] Nucleated RBC/100 WBC (Bld) [Ratio] 0 % Normal 0-0 [facility] Comment on above: Order Comment: No: D o not add to previous draw Performed By: #### 3 5200 #### [facility] [address] [place] [address], [facility] PLAT CNT 253 10*3/uL Normal 150-400 [facility] Comment on above: Order Comment: No: D o not add to previous draw Performed By: #### 3 5200 #### [facility] [address] [place] [address], [facility] RBC (Bld) [#/Vol] 4.27 10*6/uL Normal 4.20-5.70 [facility] Comment on above: Order Comment: No: D o not add to previous draw Performed By: #### 3 5200 #### [facility] [address] [place] [address], [facility] WBC (Bld) [#/Vol] 10.57 10*3/uL Normal 4.00-10.60 [facility] Comment on above: Order Comment: No: D o not add to previous draw Performed By: #### 3 5200 #### [facility] [address] [place] [id number], [facility] HEMOGLOBIN A1Con 10-10-2020 HbA1c (Bld) [Mass fraction] 6.0 % Normal 4.0-6.0 [facility] Comment on above: Order Comment: No: D o not add to previous draw Performed By: #### 3 1791 #### [facility] [address] [place] [address], [facility] HbA1c (Bld) [Mass fraction] 126 mmol/L Normal [facility] Comment on above: Order Comment: No: D o not add to previous draw Performed By: #### 3 1791 #### [facility] [address] [place] [address], [facility] LIPID PROFILEon 10-10-2020 Cholesterol [Mass/Vol] 144 mg/dL Normal 120-200 [facility] Comment on above: Order Comment: No: D o not add to previous draw Result Comment: CHOL ESTEROL REFERENCE RANGE: 20 YEARS AND OLDER CARDIOVASCULAR RISK Less than 200 mg/dl Low Risk 200 to 239 mg/dl Borderline Risk 240 mg/dl and greater High Risk Performed By: #### 0 0071, 87699 #### [facility] [address] [place] [address], [facility] Cholesterol in HDL [Mass/Vol] 30 mg/dL Normal 23-92 [facility] Comment on above: Order Comment: No: D o not add to previous draw Result Comment: Slig ht variation in normal range could be due to gender and/or age. HDL CHOLESTEROL REFERENCE RANGE: 20 years and older Cardiovascular Risk > or =60 mg/dL Desirable 40 TO 59 mg/dL Low Risk <40 mg/dL High Risk Performed By: #### 0 0071, 41462 #### [facility] [address] [place] [address], [facility] Cholesterol in LDL [Mass/Vol] 73 mg/dL Normal 0-130 [facility] Comment on above: Order Comment: No: D o not add to previous draw Result Comment: LDL IS A CALCULATION LDL IS ONLY VALID IF THE TRIG IS LESS THAN 400. Performed By: #### 0 0071, 32241 #### [facility] [address] [place] [address], [facility] Cholesterol.total/C holesterol in HDL [Mass ratio] 4.8 {ratio} High 0.0-4.5 [facility] Comment on above: Order Comment: No: D o not add to previous draw Performed By: #### 0 0071, 65892 #### [facility] [address] NON-HDL CHOLESTEROL 114 mg/dL Normal [facility] Comment on above: Order Comment: No: D o not add to previous draw Performed By: #### 0 0071, 16568 #### [facility] [address] Triglyceride [Mass/Vol] 203 mg/dL High 40-149 [facility] Comment on above: Order Comment: No: D o not add to previous draw Result Comment: TRIG LYCERIDE REFERENCE RANGE: 20 YEARS AND OLDER CARDIOVASCULAR RISK LESS THAN 150 mg/dl LOW RISK 150 TO 199 mg/dl BORDERLINE RISK 200 mg/dl AND GREATER HIGH RISK Performed By: #### 0 0071, 75012 #### [facility] [address] VLDL CHOL 41 mg/dL High 0-40 [facility] Comment on above: Order Comment: No: D o not add to previous draw Performed By: #### 0 0071, 85592 #### [facility] [address] PROTHROMBIN TIMEon 1 INR Coag (PPP) [Relative time] 1.00 {INR} Normal 0.91-1.16 [facility] Comment on above: Order Comment: [...] RANGE. CHEST 1995;108:231S-246S. Performed By: #### 5 6101 #### [facility] [address] PT Coag (PPP) [Time] 13.2 s Normal 12.3-14.8 [facility] Comment on above: Order Comment: No: D o not add to previous draw Result Comment: ALL RESULTS MUST BE INTERPRETED WITH RESPECT TO BLOOD DRAWING ARTIFACT OR DILUTION ERROR OF ANTICOAGULANT AT THE TIME OF SAMPLING. Performed By: #### 5 6101 #### [facility] [address] [facility]. [address] BNP (B-TYPE NATRIURETIC PEPT FELISA)on 10-09-2020 Natriuretic peptide B (Bld) [Mass/Vol] 32 pg/mL Normal 0-100 [facility] Comment on above: Order Comment: No: D o not add to previous draw Result Comment: Give n the appropriate clinical setting a BNP result of >100 pg/mL indicates congestive heart failure. Performed By: #### 8 5123 #### [facility] [address] [facility] [place] [address], [facility] TROPONIN-Ion 10-09-2020 Troponin I.cardiac [Mass/Vol] 0.00 ng/mL Normal 0.00-0.04 [facility] Comment on above: Order Comment: No: D o not add to previous draw Result Comment: REFE RENCE RANGES: 0.00 - 0.14 ng/ml NEGATIVE 0.15 - 0.25 ng/ml INDETERMINATE > 0.25 ng/ml INDICATIVE OF AN M.I. Performed By: #### 3 5200 #### [facility] [address] [place] [address], [facility] Provider Letter FTon 09-20 Provider Letter [facility] [place], [address] [place] [address] Re: KARLA MCCOLLUM Date of : 1950 Thank you for your referral of Karla Mccollum who was seen on consultation on Sep 17, 2020, for three skin lesions of concern. I have enclosed my consultation note for your review, and I will be happy to follow Karla should he need further treatment. Sincerely, Karla Dye MD General Surgery Normal [facility] Facesheeton 09-18-2020 Facesheet [id number] 2 [id number] .00CD:127 Normal [facility] Ambulatory Clinical Summaryo n 09-17-2020 Ambulatory Clinical Summary {[id number] Normal [facility] General Surgery Office/Clini c Noteon 09-17-2020 General [...] Primary malignant neoplasm of lung: Father. Normal [facility] Comment on above: Result Comment: Elec tronically Signed By: SHEY WARD, Karla Leos\Date and Time Signed: 09/17/20 16:29 EST Physician Referralon 021 Physician Referral [id number] .[id number]:127 Normal [facility] Encounters Encounter Date Encounter Type Care Provider Facility Start: 12-22-2023 End: 12-22-2023 ambulatory [facility] Start: 12-15-2023 End: 12-15-2023 ambulatory [facility] Redd Facility:[facility] Start: 12-02-2023 End: 12-02-2023 ambulatory KAMRAN Ester GUILLEN Not Available Start: 06-18-2023 End: 06-18-2023 [facility] Start: 11-24-2022 End: 11-25-[address] NELI STERN Facility: Start: 09-02-2022 End: 09-02-[address] HOA TRAN . Facility:[facility] Start: 12-17-2021 End: 12-18-[address] HOA TRAN . Facility:[facility] Start: 10-09-2020 End: 10-12-2020 Evaluation and management of inpatient HOA TRAN Facility:[facility] Procedures Date Procedure Procedure Detail Performing Clinician Start: 10-10-2020 INTRODUCE OTH THERAP SUBST IN CORONARY ART, PERC NELI Pierre MOUKARBROBER Start: 10-10-2020 PLAIN RADIOGRAPHY OF MULT COR ART USING L OSM CONTRAST NELI STERN Start: 10-10-2020 PLAIN RADIOGRAPHY OF R LOW EXTREM ART USING L OSM CONTRAST NELI Pierre MOUKARBROBER Payers Date Payer Category Payer Self-pay 2023 Medicare [id number] 1958 Medicare [id number] 1958 Unknown [id number] 1950 Unknown [id number] 2.16.8 [id number] 1950 Unknown [id number] 2.16.84 [id number] 1950 Unknown [id number] 2.16.84 [id number] 1950 Unknown [id number] 2.16.84 [id number] 1950 Unknown [id number] 2.16.84 [id number] Unknown [id number] 2.16.8 [id number] Progress note 12-22-2023 Note Date & Type Note Facility 12-22-2023 Note [facility] - [facility] Subjective Karla Mccollum is a 73 y.o. year old male patient being seen for 6 mo follow up CAD, hypertension, and hyperlipidemia. Zetia was added at last apt in Jun 2023. He had lipid panel last week. Denies chest pain, palpitations, and lightheadedness/syncope. Says his MILES remains unchanged, but he feels like he should be able to do more physically. Patient Active Problem List Diagnosis Cardiovascular stress [...] Use Topics Alcohol use: Yes Comment: occasional ALISA Karla is seen in follow-up. He is [...] has history of hives for which he was on prednisone 10 mg daily. Not anymore. Previously he had positive occult blood in [...] to 6.25 mg twice daily. He was evaluated in cardiology clinic on 09/04/2022 after a follow-up visit to the emergency room with chest pain. Work-up during the ED visit was unremarkable with negative cardiac enzymes. Ranexa 500 mg twice daily was added. At visit of 11/23/2022 I change carvedilol to metoprolol succinate. Since that visit atorvastatin was increased to 40 mg daily. He was admitted to the [facility] on 05/06/2023 with chest pain and uncontrolled hypertension. Ranexa and metoprolol were increased. At last visit of 06/18/2023 I added ezetimibe 10 mg daily due to LDL not being at target. Today he reports that he has been doing well. He has no chest pain. He has mild shortness of breath on exertion. He has occasional lower extremity edema and no claudication. He says that he is gaining weight but he tries to keep physically active. Review of Systems Cardiovascular: Positive for dyspnea on exertion and leg swelling (LLE). Musculoskeletal: Positive for back pain. All other systems reviewed and are negative. Objective Visit Vitals BP 136/76 (BP Location: Left arm, Patient Position: Sitting) Pulse 76 Ht 1.778 m (5' 10 ) Wt 112 kg (246 lb) SpO2 98% BMI 35.30 kg/m??? Smoking Status Former BSA 2.35 m??? [...] once daily as directed., Disp: 90 tablet, (more content not included)... [facility] Progress note 06-18-2023 Note Date & Type Note Facility 06-18-2023 Note [place] Cardiology - [facility] Subjective Karla Mccollum is a 73 y.o. year old male patient being seen for 6 mo follow up CAD, coronary artery spasm, hypertension, and hyperlipidemia. He was recently admitted to [facility] for chest pain in Apr 2023. Ranexa [...] mg daily. He was admitted to the [facility] on 05/06/2023 with chest pain and uncontrolled [...] Current Outpatient Medications (more content not included)... [facility] Clinical Note 12-17-2021 Note Date & Type [...] and reported in a separate dictation. [facility] Summary Purpose Family History No Family History Records FoundNo Family History Records FoundNo Family History Records FoundNo Family History Records FoundNo Family History Records FoundNo Family History Records Found Advance Directives No Advanced Directives Records FoundNo Advanced Directives Records FoundNo Advanced Directives Records FoundNo Advanced Directives Records FoundNo Advanced Directives Records FoundNo Advanced Directives Records Found Hospital Course Note MR#: [id number] [facility] Pt. Name: Karla Mccollum Admitted: 10/09/2020 Discharged: [...] had a normal cardiac catheterization back in 2015, stress test was done in (more content not included)... Additional Source Comments (unrecognized sect ion and content) No Status Records FoundNo Status Records FoundNo Status Records FoundNo Status Records FoundNo Status Records FoundNo Status Records Found INFORMATION SOURCE (unrecogn ized section and content) DATE CREATED AUTHOR 09/22/2020 [facility] DATE CREATED AUTHOR AUTHOR'S ORGANIZ ATION 10/15/2020 [facility] DATE CREATED AUTHOR AUTHOR'S ORGANIZ ATION 11/30/2022 [facility] DATE CREATED AUTHOR AUTHOR'S ORGANIZ ATION 12/03/2023 [facility] DATE CREATED AUTHOR AUTHOR'S ORGANIZ ATION 12/18/[address] [facility] DATE CREATED AUTHOR AUTHOR'S JUNIOR QUAN 12/24/2023 [facility] FOR RECORDS PERTAINING TO PATIENTS WHO ARE [...] BE BASED ON THE PRIMARY CLINICAL RECORDS. [employer] provides no warranty or guarantee of the accuracy or completeness of information in this document.
== END 2024-05-05 09:19 | disposition home or self-care (01) ==
LOC: US 09:20
PROVIDERS: PCP Family Medicine; Visit Provider Family Medicine
DX: R93.89 Abnormal findings on diagnostic imaging of other specified body structures (principal); E04.2 Nontoxic multinodular goiter
CPT/HCPCS: 76536

== ENCOUNTER 2024-05-11 07:31 | Outpatient (OUT) | payer MEDICARE, SELFPAY ==
--- OUTSIDE RECORDS SUMMARY | 2024-05-11 07:34 | XMS_ITS | CCD ---
Author Organization [facility] Care Team Providers Care Laboratory Specialist Name Role Phone HOA TRAN Primary Care Unavailable UNKNOWN, PROVIDER Referring Unavailable GRISELDA, HANI Admitting Unavailable GRISELDA, BOBBII Attending Unavailable MA Procedure Practitioner Unavailab le UNKNOWN, PROVIDER Surgeon [...] Onset: 09-02-2022 Episodic Other aftercare (1 source) [facility] (current) use of aspirin; Translations: [LONGTERM CURRENT USE OF ASPIRIN] Onset: 09-03-2022 Episodic Other aftercare (1 source) Other manager intermediate (current) drug therapy; Translations: [OTH COMIC ILLUSTRATOR CURRENT DRUG THERAPY] Onset: 09-03-2022 Episodic Residual [...] Range Facility Office Vis[facility] 12-22-2023 Follow-up visit [id number] Karla Mccollum 1950 M Date Provider Department Center 12/22/2023 NELI THRASHER VERA [facility] Family History Problem Relation Age of Onset Hypertension Mother Family Status - Relation Status Age at Mother Level of Service:44423 MA OFFICE/OUTPATIENT ESTABLISHED LOW MDM 20 MIN Normal [facility] Rudolph 12-15-2023 L Specimen: BC Received: 12/16/23 Status: EDWINA Spears Num: [id number] Spec Type: Cytology Subm Dr: Bismark Redd MD Tissues: A FNA SLIDES NOPATH (LT SUBMENT MASS) Procedures: HE/2, Cyto Int and Re, PAPSTN/7 Age/ Patient Sex Location Account Attending Physician Karla Mccollum 73/M LABELL [id number] Bismark Redd MD SPEC NUM: [id number] RECD: 12/16/23 STATUS: EDWINA SPEARS NUM: [id number] SEAN: 12/15/23- SUBM DR: Bismark Redd MD ENTERED: 12/16/23-[address] [facility] [address]: Lili,Lab Hoa Tran MD SPEC TYPE: Cytology DEPT: [facility] ENTERED BY: [id number] RECV BY: [id number] ORDERED: HE/2, Cyto Int and Re, PAPSTN/7 [...] pap are additionally received. (CC/nh) CPT Codes 22516 -------- -------- Specimen: [id number] Received: 12/16/23 Status: EDWINA Regan Num: [id number] Spec Type: Cytology Subm Dr: Bismark Redd MD Tissues: A FNA SLIDES NOPATH (LT SUBMENT MASS) Procedures: HE/2, Cyto Int and Re, PAPSTN/7 -------- Patient: Karla Mccollum [id number] (Continued) -------- Signed (signature on file) Bismark Quiñonez MD 12/17/23 1054 Normal [facility] Office [facility] 06-18-2023 Follow-up visit [id number] Karla Mccollum 1950 [facility] Provider Department [place] 06/18/2023 NELI THRASHER [facility] Family History Problem Relation Age of Onset Hypertension Mother Family Status - Relation Status Age at Mother Level of Service:[id number] MA OFFICE/OUTPATIENT ESTABLISHED MOD MDM 30-39 MIN Normal [facility] LIPID PROFILEon 11-24-2022 CHOL-HDL RATIO NORM SEE BELOW Normal [facility] Comment on above: Result Comment: 3.3 - 4.4 LOW RISK 4.4 - 7.1 AVERAGE RISK 7.1 - 11.0 MODERATE RISK >11.0 HIGH RISK Performed By: #### L IPID #### [facility] [address] [address] [address] Paige Tee Cholesterol [Mass/Vol] 151 mg/dL Normal <=200 [facility] Comment on above: Performed By: #### L IPID #### [facility] [address] [address] [address] Paige Tee Cholesterol in HDL [Mass/Vol] 40 mg/dL Normal 40-60 [facility] Comment on above: Performed By: #### L IPID #### [facility] [address] [address] [address] Paige Tee Cholesterol in LDL [Mass/Vol] 87.4 mg/dL Normal [facility] Comment on above: Performed By: #### L IPID #### [facility] [address] [address] [address] Paige Tee Cholesterol.total/C holesterol in HDL [Mass ratio] 3.8 {ratio} Normal [facility] Comment on above: Performed By: #### L IPID #### [facility] [address] [address] [address] Paige Tee HDL NORMAL > or = 60 mg/dl - LO W CARDIOVASCULAR RISK <40 mg/dl - HIGH CARDIOVASCULAR RISK Normal [facility] Comment on above: Performed By: #### L IPID #### [facility] [address] [place] [address] Dr. Paige Tee LDL CALC NORMAL SEE BELOW Normal [facility] Comment on above: Result Comment: <100 mg/dl OPTIMAL 100 - 129 mg/dl NEAR OR ABOVE OPTIMAL 130 - 159 mg/dl BORDERLINE HIGH 160 - 189 mg/dl HIGH >190 mg/dl VERY HIGH Performed By: #### L IPID #### [facility] [address] [place] [address] Dr. Paige Tee Triglyceride [Mass/Vol] 118 mg/dL Normal <=150 [facility] Comment on above: Performed By: #### L IPID #### [facility] [address] [address] [address] Paige Tee VLDL CALC 23.6 mg/dL Normal [facility] Comment on above: Performed By: #### L IPID #### [facility] [address] [address] [address] Paige Tee CBC AUTO DIFFon 09-02-2022 BASO # 0.1 103/ul Normal 0.0-0.1 [facility] Comment on above: Performed By: #### C BC #### [facility] [address] [address] [address] Paige Tee Basophils/100 WBC (Bld) 0.6 % Normal 0.2-2.0 [facility] Comment on above: Performed By: #### C BC #### [facility] [address] [place] [address] Dr. Paige Tee EO # 0.4 103/ul Normal 0.0-0.7 [facility] Comment on above: Performed By: #### C BC #### [facility] [address] [place] [address] Dr. Paige Tee Eosinophils/100 WBC (Bld) 4.0 % Normal 0.9-7.0 [facility] Comment on above: Performed By: #### C BC #### [facility] [address] [place] [address] Dr. Paige Tee Erythrocyte distribution width (RBC) [Ratio] 13.8 % Normal 11.0-15.0 [facility] Comment on above: Performed By: #### C BC #### [facility] [address] [place] [address] Dr. Paige Tee Hematocrit (Bld) [Volume fraction] 35.9 % Critically low 42.0-54.0 [facility] Comment on above: Performed By: #### C BC #### [facility] [address] [place] [address] Dr. Paige Tee Hemoglobin (Bld) [Mass/Vol] 11.9 g/dL Critically low 14.0-18.0 [facility] Comment on above: Performed By: #### C BC #### [facility] [address] [place] [address] Dr. Paige Tee IG # 0.04 10e3/ul Critically high 0.00-0.03 [facility] [place] [facility] Comment on above: Performed By: #### C BC #### [facility] [address] [place] [address] Dr. Paige Tee IG % 0.4 % Normal 0.0-0.5 [facility] Comment on above: Performed By: #### C BC #### [facility] [address] [place] [address] Dr. Paige Tee LYMPH # 3.2 103/ul Normal 1.2-3.8 [facility] Comment on above: Performed By: #### C BC #### [facility] [address] [place] [address] Dr. Paige Tee Lymphocytes/100 WBC (Bld) 30.0 % Normal 20.5-60.0 [facility] Comment on above: Performed By: #### C BC #### [facility] [address] [place] [address] Dr. Paige Tee MANUAL DIFF REQ NO Normal [facility] Comment on above: Performed By: #### C BC #### [facility] [address] [place] [address] Dr. Paige Tee MCH (RBC) [Entitic mass] 27.9 pg Normal 25.9-34.0 [facility] Comment on above: Performed By: #### C BC #### [facility] [address] [place] [address] Dr. Paige Tee MCHC (RBC) [Mass/Vol] 33.1 g/dL Normal 29.9-35.2 [facility] Comment on above: Performed By: #### C BC #### [facility] [address] [place] [address] Dr. Paige Tee MCV (RBC) [Entitic vol] 84.3 fL Normal 80.0-94.0 [facility] Comment on above: Performed By: #### C BC #### [facility] [address] [place] [address] Dr. Paige Tee MONO # 0.8 103/ul Normal 0.3-0.8 [facility] Comment on above: Performed By: #### C BC #### [facility] [address] [place] [address] Dr. Paige Tee Monocytes/100 WBC (Bld) 7.5 % Normal 1.7-12.0 [facility] Comment on above: Performed By: #### C BC #### [facility] [address] [place] [address] Dr. Paige Tee NEUT # 6.2 103/ul Normal 1.4-6.5 [facility] Comment on above: Performed By: #### C BC #### [facility] [address] [address] [address] Paige Tee Neutrophils/100 WBC (Bld) 57.5 % Normal 43.0-75.0 [facility] Comment on above: Performed By: #### C BC #### [facility] [address] [address] [address] Paige Tee Platelet mean volume (Bld) [Entitic vol] 9.5 fL Normal 9.5-13.5 [facility] Comment on above: Performed By: #### C BC #### [facility] [address] [address] [address] Paige Tee PLT 314 103/ul Normal 150-450 [facility] Comment on above: Performed By: #### C BC #### [facility] [address] [place] [address] Dr. Paige Tee RBC 4.26 106/ul Critically low 4.70-6.10 [facility] Comment on above: Performed By: #### C BC #### [facility] [address] [address] [address] Paige Tee WBC 10.8 103/ul Normal 4.0-11.0 [facility] Comment on above: Performed By: #### C BC #### [facility] [address] [place] [address] Dr. Paige Tee Covid-19 PCR ([facility]on 08[facility]16 SARS-CoV-2 (COVID-19) RNA UMER+probe Ql (Unsp spec) Not detected Normal NOT DETECTED [facility] Comment on above: Result Comment: When [...] for this test is supported by the [place] of [employer] and Human Service's declaration that [...] used). Performed By: #### C VDTB #### [facility] [address] [place] [address] Dr. Paige Tee PROF CHEM 8 (BAS METB)on Anion gap [Moles/Vol] 13.7 mmol/L Normal [facility] Comment on above: Performed By: #### H TAMMI, BMP #### [facility] [address] [place] [address] Dr. Paige Tee Calcium [Mass/Vol] 9.1 mg/dL Normal 8.5-10.1 [facility] Comment on above: Performed By: #### H TAMMI, BMP #### [facility] [address] [place] [address] Dr. Paige Tee Chloride [Moles/Vol] 104 mmol/L Normal 98-107 [facility] Comment on above: Performed By: #### H TAMMI, BMP #### [facility] [address] [place] [address] Dr. Paige Tee CO2 [Moles/Vol] 24.4 mmol/L Normal 21.0-32.0 [facility] Comment on above: Performed By: #### H TAMMI, BMP #### [facility] [address] [place] [address] Dr. Paige Tee Creatinine [Mass/Vol] 1.11 mg/dL Normal 0.70-1.30 [facility] Comment on above: Performed By: #### H TAMMI, BMP #### [facility] [address] [place] [address] Dr. Paige Tee EGFR-AF [place] ISLANDER >60 Normal >=60 [facility] Comment on above: Performed By: #### H TAMMI, BMP #### [facility] [address] [address] [address] Paige Tee EGFR-NON AF [place]LANDER >60 Normal >=60 [facility] Comment on above: Performed By: #### H TAMMI, BMP #### [facility] [address] [address] [address] Paige Tee Glucose [Mass/Vol] 115 mg/dL Critically high 74-106 [facility] Comment on above: Performed By: #### H TAMMI, BMP #### [facility] [address] [place] [address] Dr. Pagie Tee Potassium [Moles/Vol] 4.1 mmol/L Normal 3.5-5.1 [facility] Comment on above: Performed By: #### H TAMMI, BMP #### [facility] [address] [place] [address] Dr. Paige Tee Sodium [Moles/Vol] 138 mmol/L Normal 136-145 [facility] Comment on above: Performed By: #### H TAMMI, BMP #### [facility] [address] [place] [address] Dr. Paige Tee Urea nitrogen [Mass/Vol] 20.0 mg/dL Critically high 7.0-18.0 [facility] Comment on above: Performed By: #### H TAMMI, BMP #### [facility] [address] [place] [address] Dr. Paige Tee Urea nitrogen/Creatinine [Mass ratio] 18.0 mg/mg Normal [facility] Comment on above: Performed By: #### H TAMMI, BMP #### [facility] [address] [place] [address] Dr. Paige Tee TROPONIN, HIGH SENSITIVITYon 09-02-2022 HSTROP 4.1 pg/mL Normal 4.0-76.1 [facility] Comment on above: Result Comment: CUT- OFF POINTS HAVE BEEN ESTABLISHED BASED ON THE FOURTH UNIVERSAL DEFINITIONS OF MYOCARDIAL INFARCTION. THE UPPER REFERENCE LIMIT (URL) OF TROPONIN, DEFINED THE 99TH PERCENTILE OF cTnI DISTRIBUTION IN A REFERENCE POPULATION, HAS BEEN CONFIRMED THE DECISION THRESHOLD FOR IA DIAGNOSIS. Performed By: #### H ANJUPN #### [facility] [address], [place] [address] Dr. Paige Tee HSTROP 4.5 pg/mL Normal 4.0-76.1 [facility] Comment on above: Result Comment: CUT- OFF POINTS HAVE BEEN ESTABLISHED BASED ON THE FOURTH UNIVERSAL DEFINITIONS OF MYOCARDIAL INFARCTION. THE UPPER REFERENCE LIMIT (URL) OF TROPONIN, DEFINED THE 99TH PERCENTILE OF cTnI DISTRIBUTION IN A REFERENCE POPULATION, HAS BEEN CONFIRMED THE DECISION THRESHOLD FOR IA DIAGNOSIS. Performed By: #### H STROBUBBA, [facility] #### [facility] [address], [place] [address] Dr. Paige Tee XR CHEST 1 Von [...] REDD Date: 2022-09-02 12:29 Normal [facility] STRESS/REST MULTIon 12-17 NM STRESS/REST MULTI Patient: KARLA MCCOLLUM Exam Date: 12/17/2021 : 1950 Gender:M Ordering : DR HOA TRAN . Admission #: [id number] Family : Order #: [id number] CLICK HERE TO VIEW EXAM RADIOLOGY REPORT [...] Redd MD on 12/18/2021 at 09:10 Normal [facility] BASIC METABOLIC PANELon - Calcium [Mass/Vol] 8.9 mg/dL Normal 8.6-10.3 [facility] Comment on above: Order Comment: No: D o not add to previous draw Performed By: #### 0 0071 #### [facility] [address] [place] [address], [facility] Chloride [Moles/Vol] 105 mmol/L Normal 98-107 [facility] Comment on above: Order Comment: No: D o not add to previous draw Performed By: #### 0 0071 #### [facility] [address] [place] [address], [place] CO2 [Moles/Vol] 25 mmol/L Normal 21-31 [facility] Comment on above: Order Comment: No: D o not add to previous draw Performed By: #### 0 0071 #### [facility] [address] [place] [address], [place] Creatinine [Mass/Vol] 0.82 mg/dL Normal 0.70-1.30 [facility] Comment on above: Order Comment: No: D o not add to previous draw Performed By: #### 0 0071 #### [facility] [address] [place] [address], [place] GFR/1.73 sq M predicted among blacks MDRD (S/P/Bld) [Vol rate/Area] mL/min/{1.73_m2} Normal >60 [facility] Comment on above: Order Comment: No: D o not add to previous draw Performed By: #### 0 0071 #### [facility] [address] [place] [address], [place] GFR/1.73 sq M predicted among non-blacks MDRD (S/P/Bld) [Vol rate/Area] mL/min/{1.73_m2} Normal >60 [facility] Comment on above: Order Comment: No: D o not add to previous draw Performed By: #### 0 0071 #### [facility] [address] [place] [address], [place] Glucose [Mass/Vol] 104 mg/dL High 70-100 [facility] Comment on above: Order Comment: No: D o not add to previous draw Performed By: #### 0 0071 #### [facility] [address] [place] [address], [place] Potassium [Moles/Vol] 3.6 mmol/L Normal 3.5-5.1 [facility] Comment on above: Order Comment: No: D o not add to previous draw Performed By: #### 0 0071 #### [facility] [address] [place] [address], [place] Sodium [Moles/Vol] 137 mmol/L Normal 136-145 [facility] Comment on above: Order Comment: No: D o not add to previous draw Performed By: #### 0 0071 #### [facility] [address] [place] [address], [place] Urea nitrogen [Mass/Vol] 13 mg/dL Normal 7-25 [facility] Comment on above: Order Comment: No: D o not add to previous draw Performed By: #### 0 0071 #### [facility] [address] [place] [address], [facility] CBC COMPLETE BLOOD COUNTon 10-12-2020 Erythrocyte distribution width (RBC) [Ratio] 13.1 % Normal 11.5-15.0 [facility] Comment on above: Order Comment: No: D o not add to previous draw Performed By: #### 3 [id number] #### [facility] [address] [place] [id number], [facility] Hematocrit (Bld) [Volume fraction] 36.6 % Low 39.0-50.0 [facility] Comment on above: Order Comment: No: D o not add to previous draw Performed By: #### 3 [id number] #### [facility] [address] [place] [address], [facility] Hemoglobin (Bld) [Mass/Vol] 11.6 g/dL Low 13.0-17.0 [facility] Comment on above: Order Comment: No: D o not add to previous draw Performed By: #### 3 5200 #### [facility] [address] [place] [address], [facility] MCH (RBC) [Entitic mass] 28.1 pg Normal 27.0-33.0 [facility] Comment on above: Order Comment: No: D o not add to previous draw Performed By: #### 3 [id number] #### [facility] [address] [place] [id number], [facility] MCHC (RBC) [Mass/Vol] 31.7 g/dL Low 32.0-35.0 [facility] Comment on above: Order Comment: No: D o not add to previous draw Performed By: #### 3 [id number] #### [facility] [address] [place] [address], [facility] MCV (RBC) [Entitic vol] 88.6 fL Normal 82.0-98.0 [facility] Comment on above: Order Comment: No: D o not add to previous draw Performed By: #### 3 [id number] #### [facility] [address] [place] [address], [facility] Nucleated RBC/100 WBC (Bld) [Ratio] 0 % Normal 0-0 [facility] Comment on above: Order Comment: No: D o not add to previous draw Performed By: #### 3 [id number] #### [facility] [address] [place] [address], [facility] PLAT CNT 289 10*3/uL Normal 150-400 [facility] Comment on above: Order Comment: No: D o not add to previous draw Performed By: #### 3 5200 #### [facility] [address] [place] [address], [facility] RBC (Bld) [#/Vol] 4.13 10*6/uL Low 4.20-5.70 [facility] Comment on above: Order Comment: No: D o not add to previous draw Performed By: #### 3 5200 #### [facility] [address] [place] [address], [facility] WBC (Bld) [#/Vol] 10.27 10*3/uL Normal 4.00-10.60 [facility] Comment on above: Order Comment: No: D o not add to previous draw Performed By: #### 3 5200 #### [facility] [address] [place] [address], [facility] BASIC METABOLIC PANELon -2 Calcium [Mass/Vol] 9.2 mg/dL Normal 8.6-10.3 [facility] Comment on above: Order Comment: No: D o not add to previous draw Performed By: #### 0 0071 #### [facility] [address] [place] [id number], [facility] Chloride [Moles/Vol] 106 mmol/L Normal 98-107 [facility] Comment on above: Order Comment: No: D o not add to previous draw Performed By: #### 0 0071 #### [facility] [address] [place] [address], [place] CO2 [Moles/Vol] 27 mmol/L Normal 21-31 [facility] Comment on above: Order Comment: No: D o not add to previous draw Performed By: #### 0 0071 #### [facility] [address] [place] [address], [place] Creatinine [Mass/Vol] 0.84 mg/dL Normal 0.70-1.30 [facility] Comment on above: Order Comment: No: D o not add to previous draw Performed By: #### 0 0071 #### [facility] [address] [place] [address], [place] GFR/1.73 sq M predicted among blacks MDRD (S/P/Bld) [Vol rate/Area] mL/min/{1.73_m2} Normal >60 [facility] Comment on above: Order Comment: No: D o not add to previous draw Performed By: #### 0 0071 #### [facility] [address] [place] [address], [place] GFR/1.73 sq M predicted among non-blacks MDRD (S/P/Bld) [Vol rate/Area] mL/min/{1.73_m2} Normal >60 [facility] Comment on above: Order Comment: No: D o not add to previous draw Performed By: #### 0 0071 #### [facility] [address] [place] [address], [place] Glucose [Mass/Vol] 101 mg/dL High 70-100 [facility] Comment on above: Order Comment: No: D o not add to previous draw Performed By: #### 0 0071 #### [facility] [address] [place] [address], [place] Potassium [Moles/Vol] 3.8 mmol/L Normal 3.5-5.1 [facility] Comment on above: Order Comment: No: D o not add to previous draw Performed By: #### 0 0071 #### [facility] [address] [place] [address], [facility] Sodium [Moles/Vol] 139 mmol/L Normal 136-145 [facility] Comment on above: Order Comment: No: D o not add to previous draw Performed By: #### 0 0071 #### [facility] [address] [place] [address], [facility] Urea nitrogen [Mass/Vol] 15 mg/dL Normal 7-25 [facility] Comment on above: Order Comment: No: D o not add to previous draw Performed By: #### 0 0071 #### [facility] [address] [place] [address], [facility] CBC COMPLETE BLOOD COUNTon 0 10-11-2020 Erythrocyte distribution width (RBC) [Ratio] 12.9 % Normal 11.5-15.0 [facility] Comment on above: Order Comment: No: D o not add to previous draw Performed By: #### 3 0 #### [facility] [address] [place] [address], [facility] Hematocrit (Bld) [Volume fraction] 38.6 % Low 39.0-50.0 [facility] Comment on above: Order Comment: No: D o not add to previous draw Performed By: #### 3 [id number] #### [facility] [address] [place] [address], [place] Hemoglobin (Bld) [Mass/Vol] 12.3 g/dL Low 13.0-17.0 [facility] Comment on above: Order Comment: No: D o not add to previous draw Performed By: #### 3 [id number] #### [facility] [address] [place] [address], [place] MCH (RBC) [Entitic mass] 28.5 pg Normal 27.0-33.0 [facility] Comment on above: Order Comment: No: D o not add to previous draw Performed By: #### 3 [id number] #### [facility] [address] [facility] [address] MCHC (RBC) [Mass/Vol] 31.9 g/dL Low 32.0-35.0 [facility] Comment on above: Order Comment: No: D o not add to previous draw Performed By: #### 3 [id number] #### [facility] [address] [facility] [place] [address], [facility] MCV (RBC) [Entitic vol] 89.6 fL Normal 82.0-98.0 [facility] Comment on above: Order Comment: No: D o not add to previous draw Performed By: #### 3 5200 #### [facility] [address] Nucleated RBC/100 WBC (Bld) [Ratio] 0 % Normal 0-0 [facility] Comment on above: Order Comment: No: D o not add to previous draw Performed By: #### 3 5200 #### [facility] 3000 [facility] [place] [address], [facility] PLAT CNT 279 10*3/uL Normal 150-400 The [facility] Comment on above: Order Comment: No: D o not add to previous draw Performed By: #### 3 5200 #### [facility] 3000 [facility] [place] [address], [facility] RBC (Bld) [#/Vol] 4.31 10*6/uL Normal 4.20-5.70 The [facility] Comment on above: Order Comment: No: D o not add to previous draw Performed By: #### 3 5200 #### [facility] [address] [place] [id number], [facility] WBC (Bld) [#/Vol] 10.25 10*3/uL Normal 4.00-10.60 [facility] Comment on above: Order Comment: No: D o not add to previous draw Performed By: #### 3 5200 #### [address] CTA HEART-CORONARY/ ARTERY B YPASS GRAFT WITH 3DPPon 10-11-2020 CTA HEART-CORONARY/ ARTERY BYPASS GRAFT WITH 3DPP [facility] Department of Radiology [address] [place] [id number] Patient Name: KARLA MCCOLLUM : 1950 Sex: M Age: Race: White Pt. Location: [id number] Patient Status: I Ordered Date: 10/11/2020 8:30:00 [...] otherwise. Electronically signed: Asa Hill. 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 Division of Service Date: 10/10/2020 Cardiology Birthdate: 1950 Adult Cardiovascular Room #: 3AB [id number] [address] [place] [address] Cardiovascular Laboratory Report INDICATION: The patient is [...] signed informed consent. He was brought to tutorial laboratory supervisor in a fasting state. The right wrist area was prepped and draped in usual fashion. Modified Satnam's test was favorable on the right. Access in the right radial artery was obtained using micropuncture technique. A 6-Mauritanian x 11 cm Hydrophilic sheath was advanced, [...] adequate location, this was upsized to a 6-Mauritanian x 11 cm sheath. Bilateral selective coronary angiography was then performed using 6-Mauritanian JL3.5 and JR4 diagnostic catheters. The 6-Mauritanian JR4 diagnostic catheter was then used to [...] Stern M.D. Date Trans: 10/11/2020 06:09 A/kevino [id number] cc: Hoa Tran M.D. [address], [facility] [phone] Neli Stern M.D. Heart Failure/ Transplant Mailstop 1118 [facility] [address] Normal [facility] BASIC METABOLIC PANELon 09-17 Calcium [Mass/Vol] 9.0 mg/dL Normal 8.6-10.3 [facility] Comment on above: Order Comment: No: D o not add to previous draw Performed By: #### 0 0071, [id number] #### [facility] [address] [place] [address], [place] Chloride [Moles/Vol] 103 mmol/L Normal 98-107 [facility] Comment on above: Order Comment: No: D o not add to previous draw Performed By: #### 0 0071, 30893 #### [facility] [address] [place] [address], [place] CO2 [Moles/Vol] 25 mmol/L Normal 21-31 The [facility] Comment on above: Order Comment: No: D o not add to previous draw Performed By: #### 0 0071, 03006 #### [facility] [address] [place] [address], [place] Creatinine [Mass/Vol] 0.87 mg/dL Normal 0.70-1.30 [facility] Comment on above: Order Comment: No: D o not add to previous draw Performed By: #### 0 0071, 71985 #### [facility] [address] [place] [address], [place] GFR/1.73 sq M predicted among blacks MDRD (S/P/Bld) [Vol rate/Area] mL/min/{1.73_m2} Normal >60 [facility] Comment on above: Order Comment: No: D o not add to previous draw Performed By: #### 0 0071, 48848 #### [facility] [address] [place] [address], [place] GFR/1.73 sq M predicted among non-blacks MDRD (S/P/Bld) [Vol rate/Area] mL/min/{1.73_m2} Normal >60 [facility] Comment on above: Order Comment: No: D o not add to previous draw Performed By: #### 0 70, 73033 #### [facility] [address] [place] [address], [place] Glucose [Mass/Vol] 109 mg/dL High 70-100 [facility] Comment on above: Order Comment: No: D o not add to previous draw Performed By: #### 0 0071, 94829 #### [facility] [address] [place] [address], [place] Potassium [Moles/Vol] 3.5 mmol/L Normal 3.5-5.1 [facility] Comment on above: Order Comment: No: D o not add to previous draw Performed By: #### 0 0071, 40361 #### [facility] [address] [place] [address], [place] Sodium [Moles/Vol] 137 mmol/L Normal 136-145 [facility] Comment on above: Order Comment: No: D o not add to previous draw Performed By: #### 0 007, 61331 #### [facility] [address] [place] [address], [facility] Urea nitrogen [Mass/Vol] 14 mg/dL Normal 7-25 [facility] Comment on above: Order Comment: No: D o not add to previous draw Performed By: #### 0 70, 90082 #### [facility] [address] [place] [address], [facility] CBC COMPLETE BLOOD COUNTon 0 10-10-2020 Erythrocyte distribution width (RBC) [Ratio] 13.2 % Normal 11.5-15.0 [facility] Comment on above: Order Comment: No: D o not add to previous draw Performed By: #### 3 5200 #### [facility] [address] [place] [address], [facility] Hematocrit (Bld) [Volume fraction] 38.2 % Low 39.0-50.0 [facility] Comment on above: Order Comment: No: D o not add to previous draw Performed By: #### 3 5200 #### [facility] [address] [place] [address], [facility] Hemoglobin (Bld) [Mass/Vol] 12.2 g/dL Low 13.0-17.0 [facility] Comment on above: Order Comment: No: D o not add to previous draw Performed By: #### 3 5200 #### [facility] [address] [place] [address], [facility] MCH (RBC) [Entitic mass] 28.6 pg Normal 27.0-33.0 [facility] Comment on above: Order Comment: No: D o not add to previous draw Performed By: #### 3 5200 #### [facility] [address] [place] [address], [facility] MCHC (RBC) [Mass/Vol] 31.9 g/dL Low 32.0-35.0 [facility] Comment on above: Order Comment: No: D o not add to previous draw Performed By: #### 3 5200 #### [facility] [address] [place] [address], [facility] MCV (RBC) [Entitic vol] 89.5 fL Normal 82.0-98.0 [facility] Comment on above: Order Comment: No: D o not add to previous draw Performed By: #### 3 5200 #### [facility] [address] [place] [address], [facility] Nucleated RBC/100 WBC (Bld) [Ratio] 0 % Normal 0-0 [facility] Comment on above: Order Comment: No: D o not add to previous draw Performed By: #### 3 5200 #### [facility] [address] [place] [address], [facility] PLAT CNT 253 10*3/uL Normal 150-400 [facility] Comment on above: Order Comment: No: D o not add to previous draw Performed By: #### 3 5200 #### [facility] [address] [place] [address], [facility] RBC (Bld) [#/Vol] 4.27 10*6/uL Normal 4.20-5.70 [facility] Comment on above: Order Comment: No: D o not add to previous draw Performed By: #### 3 5200 #### [facility] [address] [place] [address], [facility] WBC (Bld) [#/Vol] 10.57 10*3/uL Normal 4.00-10.60 [facility] Comment on above: Order Comment: No: D o not add to previous draw Performed By: #### 3 5200 #### [facility] [address] [place] [id number], [facility] HEMOGLOBIN A1Con 10-10-2020 HbA1c (Bld) [Mass fraction] 6.0 % Normal 4.0-6.0 [facility] Comment on above: Order Comment: No: D o not add to previous draw Performed By: #### 3 1791 #### [facility] [address] [place] [address], [facility] HbA1c (Bld) [Mass fraction] 126 mmol/L Normal [facility] Comment on above: Order Comment: No: D o not add to previous draw Performed By: #### 3 1791 #### [facility] [address] [place] [address], [facility] LIPID PROFILEon 10-10-2020 Cholesterol [Mass/Vol] 144 mg/dL Normal 120-200 [facility] Comment on above: Order Comment: No: D o not add to previous draw Result Comment: CHOL ESTEROL REFERENCE RANGE: 20 YEARS AND OLDER CARDIOVASCULAR RISK Less than 200 mg/dl Low Risk 200 to 239 mg/dl Borderline Risk 240 mg/dl and greater High Risk Performed By: #### 0 0071, 66314 #### [facility] [address] [place] [address], [facility] Cholesterol in HDL [Mass/Vol] 30 mg/dL Normal 23-92 [facility] Comment on above: Order Comment: No: D o not add to previous draw Result Comment: Slig ht variation in normal range could be due to gender and/or age. HDL CHOLESTEROL REFERENCE RANGE: 20 years and older Cardiovascular Risk > or =60 mg/dL Desirable 40 TO 59 mg/dL Low Risk <40 mg/dL High Risk Performed By: #### 0 0071, 06336 #### [facility] [address] [place] [address], [facility] Cholesterol in LDL [Mass/Vol] 73 mg/dL Normal 0-130 [facility] Comment on above: Order Comment: No: D o not add to previous draw Result Comment: LDL IS A CALCULATION LDL IS ONLY VALID IF THE TRIG IS LESS THAN 400. Performed By: #### 0 0071, 46123 #### [facility] [address] [place] [address], [facility] Cholesterol.total/C holesterol in HDL [Mass ratio] 4.8 {ratio} High 0.0-4.5 [facility] Comment on above: Order Comment: No: D o not add to previous draw Performed By: #### 0 0071, 22807 #### [facility] [address] NON-HDL CHOLESTEROL 114 mg/dL Normal [facility] Comment on above: Order Comment: No: D o not add to previous draw Performed By: #### 0 0071, 42147 #### [facility] [address] Triglyceride [Mass/Vol] 203 mg/dL High 40-149 [facility] Comment on above: Order Comment: No: D o not add to previous draw Result Comment: TRIG LYCERIDE REFERENCE RANGE: 20 YEARS AND OLDER CARDIOVASCULAR RISK LESS THAN 150 mg/dl LOW RISK 150 TO 199 mg/dl BORDERLINE RISK 200 mg/dl AND GREATER HIGH RISK Performed By: #### 0 0071, 93863 #### [facility] [address] VLDL CHOL 41 mg/dL High 0-40 [facility] Comment on above: Order Comment: No: D o not add to previous draw Performed By: #### 0 0071, 51899 #### [facility] [address] PROTHROMBIN TIMEon 1 INR Coag (PPP) [Relative time] 1.00 {INR} Normal 0.91-1.16 [facility] Comment on above: Order Comment: No: [...] 1995;108:231S-246S. Performed By: #### 5 6101 #### [facility] [address] PT Coag (PPP) [Time] 13.2 s Normal 12.3-14.8 [facility] Comment on above: Order Comment: No: D o not add to previous draw Result Comment: ALL RESULTS MUST BE INTERPRETED WITH RESPECT TO BLOOD DRAWING ARTIFACT OR DILUTION ERROR OF ANTICOAGULANT AT THE TIME OF SAMPLING. Performed By: #### 5 6101 #### [facility] 3000 [facility]. [address] BNP (B-TYPE NATRIURETIC PEPT FELISA)on 10-09-2020 Natriuretic peptide B (Bld) [Mass/Vol] 32 pg/mL Normal 0-100 [facility] Comment on above: Order Comment: No: D o not add to previous draw Result Comment: Give n the appropriate clinical setting a BNP result of >100 pg/mL indicates congestive heart failure. Performed By: #### 8 5123 #### [facility] [address] [facility] [place] [address], [facility] TROPONIN-Ion 10-09-2020 Troponin I.cardiac [Mass/Vol] 0.00 ng/mL Normal 0.00-0.04 [facility] Comment on above: Order Comment: No: D o not add to previous draw Result Comment: REFE RENCE RANGES: 0.00 - 0.14 ng/ml NEGATIVE 0.15 - 0.25 ng/ml INDETERMINATE > 0.25 ng/ml INDICATIVE OF AN M.I. Performed By: #### 3 5200 #### [facility] [address] [place] [address], [facility] Provider Letter FTon 09-20 Provider Letter [facility] Hoa Tran, [address] [facility] [place] [address] [place] [address] Re: KARLA MCCOLLUM Date of : 1950 Thank you for your referral of Karla Mccollum who was seen on consultation on Sep 17, 2020, for three skin lesions of concern. I have enclosed my consultation note for your review, and I will be happy to follow Karla should he need further treatment. Sincerely, Karla Dye MD General Surgery Normal [facility] Facesheeton 09-18-2020 Facesheet [id number] 2 [id number] .00CD:127 Normal [facility] Ambulatory Clinical Summaryo n 09-17-2020 Ambulatory Clinical Summary {[id number]}CD:[id number] Normal [facility] General Surgery Office/Clini c Noteon 09-17-2020 General [...] Primary malignant neoplasm of lung: Father. Normal [facility] Comment on above: Result Comment: Elec tronically Signed By: SHEY WARD, Karla Leos\Date and Time Signed: 09/17/20 16:29 EST Physician Referralon 021 Physician Referral [id number] 1 [id number] .[id number]:127 Normal [facility] Encounters Encounter Date Encounter Type Care Provider Facility Start: 12-22-2023 End: 12-22-2023 ambulatory [facility] Start: 12-15-2023 End: 12-15-2023 ambulatory [facility]d Facility:[facility] Start: 12-02-2023 End: 12-02-2023 ambulatory KAMRAN Ester GUILLEN Not Available Start: 06-18-2023 End: 06-18-2023 [facility] Start: 11-24-2022 End: 11-25-[address] NELI STERN Facility: Start: 09-02-2022 End: 09-02-[address] HOA TRAN . Facility:[facility] Start: 12-17-2021 End: 12-18-[address] HOA TRAN . Facility:[facility] Start: 10-09-2020 End: 10-12-2020 Evaluation and management of inpatient HOA TRAN Facility:[facility] Procedures Date Procedure Procedure Detail Performing Clinician Start: 10-10-2020 INTRODUCE OTH THERAP SUBST IN CORONARY ART, PERC NELI Pierre MOUKARBROBER Start: 10-10-2020 PLAIN RADIOGRAPHY OF MULT COR ART USING L OSM CONTRAST NELI STERN Start: 10-10-2020 PLAIN RADIOGRAPHY OF R LOW EXTREM ART USING L OSM CONTRAST NELI Pierre MOUKARBROBER Payers Date Payer Category Payer Self-pay 2023 Medicare [id number] 1958 Medicare [id number] 1958 Unknown [id number] 1950 Unknown [id number] 2.16.8 [id number] 1950 Unknown [id number] 2.16.84 [id number] 1950 Unknown [id number] 2.16.84 [id number] 1950 Unknown [id number] 2.16.84 [id number] 1950 Unknown [id number] 2.16.84 [id number] Unknown [id number] 2.16.8 [id number] Progress note 12-22-2023 Note Date & Type Note Facility 12-22-2023 Note [place] [facility] - [facility] Subjective Karla Mccollum is a [...] mg daily. He was admitted to the [facility] on 05/06/2023 with chest pain and [...] Disp: 90 tablet, (more content not included)... [facility] Progress note 06-18-2023 Note Date & Type Note Facility 06-18-2023 Note [place] Cardiology - [facility] Subjective Karla Mccollum is a 73 y.o. year old male patient being seen for 6 mo follow up CAD, coronary artery spasm, hypertension, and hyperlipidemia. He was recently admitted to [facility] for chest pain in Apr 2023. Ranexa [...] mg daily. He was admitted to the [facility] on 05/06/2023 with chest pain and [...] Current Outpatient Medications (more content not included)... [facility] Clinical Note 12-17-2021 Note Date & Type [...] and reported in a separate dictation. [facility] Summary Purpose Family History No Family History Records FoundNo Family History Records FoundNo Family History Records FoundNo Family History Records FoundNo Family History Records FoundNo Family History Records Found Advance Directives No Advanced Directives Records FoundNo Advanced Directives Records FoundNo Advanced Directives Records FoundNo Advanced Directives Records FoundNo Advanced Directives Records FoundNo Advanced Directives Records Found Hospital Course Note MR#: [id number] [facility] Pt. Name: Karla Mccollum Admitted: [...] and content) DATE CREATED AUTHOR 09/22/2020 [facility] DATE CREATED AUTHOR AUTHOR'S ORGANIZ ATION 10/15/2020 [facility] DATE CREATED AUTHOR AUTHOR'S ORGANIZ ATION 11/30/2022 [facility] DATE CREATED AUTHOR AUTHOR'S ORGANIZ ATION 12/03/2023 [facility] DATE CREATED AUTHOR AUTHOR'S ORGANIZ ATION 12/18/2023 [facility] DATE CREATED AUTHOR AUTHOR'S JUNIOR QUAN 12/24/2023 [facility] FOR RECORDS PERTAINING TO PATIENTS [...] BE BASED ON THE PRIMARY CLINICAL RECORDS. [employer] provides no warranty or guarantee of the accuracy or completeness of information in this document.
[2024-05-11 07:52] LABS: Basophils Absolute Auto 0.1 10^3/uL (0.0-0.1); Basophils Percent Auto 0.6 % (0.2-2.0); Eosinophils Absolute Auto 0.3 10^3/uL (0.0-0.7); Hematocrit 37.6 % (42.0-54.0); Hemoglobin 12.2 g/dL (14.0-18.0); Immature Granulocytes Abs Auto 0.08 10^3/uL (0.00-0.03); Immature Granulocytes Pct Auto 0.8 % (0.0-0.5); Lymphocytes Absolute Auto 2.8 10^3/uL (1.2-3.8); Lymphocytes Percent Auto 28.9 % (20.5-60.0); Mean Corpuscular HGB Conc 32.4 g/dL (29.9-35.2); Mean Corpuscular Hemoglobin 30.2 pg (25.9-34.0); Mean Corpuscular Volume 93.1 fL (80.0-94.0); Mean Platelet Volume 9.7 fL (9.5-13.5); Monocytes Absolute Auto 0.8 10^3/uL (0.3-0.8); Monocytes Percent Auto 8.3 % (1.7-12.0); Neutrophils Absolute Auto 5.6 10^3/uL (1.4-6.5); Neutrophils Percent Auto 58.4 % (43.0-75.0); Platelet Count 237 10^3/uL (150-450); Red Blood Count 4.04 10^6/uL (4.70-6.10); Red Cell Distribution Width 13.5 % (11.0-15.0); White Blood Count 9.6 10^3/uL (4.0-11.0)
[2024-05-11 08:31] LABS: Estimated Average Glucose 108 mg/dL; Glycohemoglobin A1C 5.4 % (4.5-6.2)
[2024-05-11 09:01] LABS: Alanine Aminotransferase 49 U/L (16-63); Albumin Globulin Ratio 1.1; Albumin Level 3.6 g/dL (3.4-5.0); Alkaline Phosphatase 37 U/L (46-116); Aspartate Amino Transferase 55 U/L (15-37); BUN Creatinine Ratio 16.8; Bilirubin Total 0.4 mg/dL (0.2-1.0); Calcium 9.2 mg/dL (8.5-10.1); Chloride 104 mmol/L (98-107); Chol HDL Ratio 3.5; Cholesterol 160 mg/dL (<=200); Estimated GFR (African America >60 (>=60); Estimated GFR (Non-African Ame >60 (>=60); Free T3 2.32 pg/mL (2.18-3.98); Globulin 3.2 g/dL; Glucose 118 mg/dL (74-106); HDL Cholesterol 46 mg/dL (40-60); Potassium 4.1 mmol/L (3.5-5.1); Sodium 139 mmol/L (136-145); Thyroid Stimulating Hormone 2.764 uIU/mL (0.358-3.740); Total Protein 6.8 g/dL (6.4-8.2); Triglycerides 218 mg/dL (<=150); VLDL CHOLESTEROL 43.6 mg/dL
[2024-05-11 09:37] LABS: Prostate Specific Antigen Scrn 1.05 ng/mL (<=4.00)
[2024-05-11 09:54] LABS: Anion Gap 13.8; Carbon Dioxide 25.3 mmol/L (21.0-32.0)
[2024-05-12 10:11] LABS: Insulin 13.5 uIU/mL (2.6-24.9)
== END 2024-05-11 07:32 | disposition home or self-care (01) ==
LOC: LAB 07:32
PROVIDERS: PCP Family Medicine; Visit Provider Family Medicine
DX: R22.1 Localized swelling, mass and lump, neck (principal); I11.9 Hypertensive heart disease without heart failure; E78.5 Hyperlipidemia, unspecified; R73.09 Other abnormal glucose; E03.9 Hypothyroidism, unspecified; Z12.5 Encounter for screening for malignant neoplasm of prostate
CPT/HCPCS: 36415; 80053; 80061; 83036; 83525; 84436; 84443; 84481; 85025; G0103

== ENCOUNTER 2024-05-15 10:21 | Day surgery (SDC) | payer MEDICARE, SELFPAY ==
--- OUTSIDE RECORDS SUMMARY | 2024-05-15 10:36 | XMS_ITS | CCD ---
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 THERAPY] Onset: 09-03-2022 Episodic Residual [...] Range Facility Office Visiton 12-22-2023 Follow-up visit [id number] Karla Mccollum 1950 M Date Provider Department Center 12/22/2023 NELI THRASHER VER[facility] Family History Problem Relation Age of Onset Hypertension Mother Family Status - Relation Status Age at Mother Level of Service:37704 PA OFFICE/OUTPATIENT ESTABLISHED LOW MDM 20 MIN Normal [facility] Rudolph 12-15-2023 L Specimen: BC Received: 12/16/23 Status: EDWINA Spears Num: [id number] Spec Type: Cytology Subm Dr: Bismark Redd MD Tissues: A FNA SLIDES NOPATH (LT SUBMENT MASS) Procedures: HE/2, Cyto Int and Re, PAPSTN/7 Age/ Patient Sex Location Account Attending Physician Karla Mccollum 73/M LABELL [id number] Bismark Redd MD SPEC NUM: [id number] RECD: 12/16/23 STATUS: EDWINA SPEARS NUM: [id number] SEAN: 12/15/23- SUBM DR: Bismark Redd MD ENTERED: 12/16/23-14[address] [facility] [address]: Lili,Lab Hoa Tran MD SPEC TYPE: Cytology DEPT: [facility] ENTERED BY: [id number] RECV BY: [id number] ORDERED: HE/2, Cyto Int and Re, PAPSTN/7 [...] pap are additionally received. (CC/nh) CPT Codes 01658 -------- -------- Specimen: [id number] Received: 12/16/23 Status: EDWINA Regan Num: [id number] Spec Type: Cytology Subm Dr: Bismark Redd MD Tissues: A FNA SLIDES NOPATH (LT SUBMENT MASS) Procedures: HE/2, Cyto Int and Re, PAPSTN/7 -------- Patient: Karla Mccollum [id number] (Continued) -------- Signed (signature on file) Bismark Quiñonez MD 12/17/23 1054 Normal [facility] Office Visiton 06-18-2023 Follow-up visit [id number] Karla Mccollum 1950 [facility] Provider Department [place] 06/18/2023 NELI THRASHER [facility] Family History Problem Relation Age of Onset Hypertension Mother Family Status - Relation Status Age at Mother Level of Service:06084 PA OFFICE/OUTPATIENT ESTABLISHED MOD MDM 30-39 MIN Normal [facility] LIPID PROFILEon 11-24-2022 CHOL-HDL RATIO NORM SEE BELOW Normal [facility] Comment on above: Result Comment: 3.3 - 4.4 LOW RISK 4.4 - 7.1 AVERAGE RISK 7.1 - 11.0 MODERATE RISK >11.0 HIGH RISK Performed By: #### L IPID #### [facility] [address] [address] [address] Paige Tee Cholesterol [Mass/Vol] 151 mg/dL Normal <=200 [facility] Comment on above: Performed By: #### L IPID #### [facility] [address] [address] [address] Paige Tee Cholesterol in HDL [Mass/Vol] 40 mg/dL Normal 40-60 [facility] Comment on above: Performed By: #### L IPID #### [facility] [address] [address] [address] Paige Tee Cholesterol in LDL [Mass/Vol] 87.4 mg/dL Normal [facility] Comment on above: Performed By: #### L IPID #### [facility] [address] [address] [address] Paige Tee Cholesterol.total/C holesterol in HDL [Mass ratio] 3.8 {ratio} Normal [facility] Comment on above: Performed By: #### L IPID #### [facility] [address] [address] [address] Paige Tee HDL NORMAL > or = 60 mg/dl - LO W CARDIOVASCULAR RISK <40 mg/dl - HIGH CARDIOVASCULAR RISK Normal [facility] Comment on above: Performed By: #### L IPID #### [facility] [address] [place] [address] Dr. Paige Tee LDL CALC NORMAL SEE BELOW Normal [facility] Comment on above: Result Comment: <100 mg/dl OPTIMAL 100 - 129 mg/dl NEAR OR ABOVE OPTIMAL 130 - 159 mg/dl BORDERLINE HIGH 160 - 189 mg/dl HIGH >190 mg/dl VERY HIGH Performed By: #### L IPID #### [facility] [address] [place] [address] Dr. Paige Tee Triglyceride [Mass/Vol] 118 mg/dL Normal <=150 [facility] Comment on above: Performed By: #### L IPID #### [facility] [address] [address] [address] Paige Tee VLDL CALC 23.6 mg/dL Normal [facility] Comment on above: Performed By: #### L IPID #### [facility] [address] [address] [address] Paige Tee CBC AUTO DIFFon 09-02-2022 BASO # 0.1 103/ul Normal 0.0-0.1 [facility] Comment on above: Performed By: #### C BC #### [facility] [address] [address] [address] Paige Tee Basophils/100 WBC (Bld) 0.6 % Normal 0.2-2.0 [facility] Comment on above: Performed By: #### C BC #### [facility] [address] [place] [address] Dr. Paige Tee EO # 0.4 103/ul Normal 0.0-0.7 [facility] Comment on above: Performed By: #### C BC #### [facility] [address] [place] [address] Dr. Paige Tee Eosinophils/100 WBC (Bld) 4.0 % Normal 0.9-7.0 [facility] Comment on above: Performed By: #### C BC #### [facility] [address] [place] [address] Dr. Paige Tee Erythrocyte distribution width (RBC) [Ratio] 13.8 % Normal 11.0-15.0 [facility] Comment on above: Performed By: #### C BC #### [facility] [address] [place] [address] Dr. Paige Tee Hematocrit (Bld) [Volume fraction] 35.9 % Critically low 42.0-54.0 [facility] Comment on above: Performed By: #### C BC #### [facility] [address] [place] [address] Dr. Paige Tee Hemoglobin (Bld) [Mass/Vol] 11.9 g/dL Critically low 14.0-18.0 [facility] Comment on above: Performed By: #### C BC #### [facility] [address] [place] [address] Dr. Paige Tee IG # 0.04 10e3/ul Critically high 0.00-0.03 [facility] Comment on above: Performed By: #### C BC #### [facility] [address] [place] [address] Dr. Paige Tee IG % 0.4 % Normal 0.0-0.5 [facility] Comment on above: Performed By: #### C BC #### [facility] [address] [place] [address] Dr. Paige Tee LYMPH # 3.2 103/ul Normal 1.2-3.8 [facility] Comment on above: Performed By: #### C BC #### [facility] [address] [place] [address] Dr. Paige Tee Lymphocytes/100 WBC (Bld) 30.0 % Normal 20.5-60.0 [facility] Comment on above: Performed By: #### C BC #### [facility] [address] [place] [address] Dr. Paige Tee MANUAL DIFF REQ NO Normal [facility] Comment on above: Performed By: #### C BC #### [facility] [address] [place] [address] Dr. Paige Tee MCH (RBC) [Entitic mass] 27.9 pg Normal 25.9-34.0 [facility] Comment on above: Performed By: #### C BC #### [facility] [address] [place] [address] Dr. Paige Tee MCHC (RBC) [Mass/Vol] 33.1 g/dL Normal 29.9-35.2 [facility] Comment on above: Performed By: #### C BC #### [facility] [address] [place] [address] Dr. Paige Tee MCV (RBC) [Entitic vol] 84.3 fL Normal 80.0-94.0 [facility] Comment on above: Performed By: #### C BC #### [facility] [address] [place] [address] Dr. Paige Tee MONO # 0.8 103/ul Normal 0.3-0.8 [facility] Comment on above: Performed By: #### C BC #### [facility] [address] [place] [address] Dr. Paige Tee Monocytes/100 WBC (Bld) 7.5 % Normal 1.7-12.0 [facility] Comment on above: Performed By: #### C BC #### [facility] [address] [place] [address] Dr. Paige Tee NEUT # 6.2 103/ul Normal 1.4-6.5 [facility] Comment on above: Performed By: #### C BC #### [facility] [address] [address] [address] Paige Tee Neutrophils/100 WBC (Bld) 57.5 % Normal 43.0-75.0 [facility] Comment on above: Performed By: #### C BC #### [facility] [address] [address] [address] Paige Tee Platelet mean volume (Bld) [Entitic vol] 9.5 fL Normal 9.5-13.5 [facility] Comment on above: Performed By: #### C BC #### [facility] [address] [address] [address] Paige Tee PLT 314 103/ul Normal 150-450 [facility] Comment on above: Performed By: #### C BC #### [facility] [address] [place] [address] Dr. Paige Tee RBC 4.26 106/ul Critically low 4.70-6.10 [facility] Comment on above: Performed By: #### C BC #### [facility] [address] [address] [address] Paige Tee WBC 10.8 103/ul Normal 4.0-11.0 [facility] Comment on above: Performed By: #### C BC #### [facility] [address] [place] [address] Dr. Paige Tee [facility]16 SARS-CoV-2 (COVID-19) RNA UMER+probe Ql (Unsp spec) Not detected Normal NOT DETECTED [facility] Comment on above: Result Comment: When [...] for this test is supported by the [place] of Health and Human Service's declaration that [...] used). Performed By: #### C VDTB #### [facility] [address] [place] [address] Dr. Paige Tee PROF CHEM 8 (BAS METB)on Anion gap [Moles/Vol] 13.7 mmol/L Normal [facility] Comment on above: Performed By: #### H TAMMI, BMP #### [facility] [address] [place] [address] Dr. Paige Tee Calcium [Mass/Vol] 9.1 mg/dL Normal 8.5-10.1 [facility] Comment on above: Performed By: #### H TAMMI, BMP #### [facility] [address] [place] [address] Dr. Paige Tee Chloride [Moles/Vol] 104 mmol/L Normal 98-107 [facility] Comment on above: Performed By: #### H TAMMI, BMP #### [facility] [address] [place] [address] Dr. Paige Tee CO2 [Moles/Vol] 24.4 mmol/L Normal 21.0-32.0 [facility] Comment on above: Performed By: #### H TAMMI, BMP #### [facility] [address] [place] [address] Dr. Paige Tee Creatinine [Mass/Vol] 1.11 mg/dL Normal 0.70-1.30 [facility] Comment on above: Performed By: #### H TAMMI, BMP #### [facility] [address] [place] [address] Dr. Paige Tee EGFR-AF MOROCCAN >60 Normal >=60 [facility] Comment on above: Performed By: #### H TAMMI, BMP #### [facility] [address] [address] [address] Paige Tee EGFR-NON AF MOROCCAN >60 Normal >=60 [facility] Comment on above: Performed By: #### H TAMMI, BMP #### [facility] [address] [address] [address] Paige Tee Glucose [Mass/Vol] 115 mg/dL Critically high 74-106 [facility] Comment on above: Performed By: #### H TAMMI, BMP #### [facility] [address] [place] [address] Dr. Paige Tee Potassium [Moles/Vol] 4.1 mmol/L Normal 3.5-5.1 [facility] Comment on above: Performed By: #### H TAMMI, BMP #### [facility] [address] [place] [address] Dr. Paige Tee Sodium [Moles/Vol] 138 mmol/L Normal 136-145 [facility] Comment on above: Performed By: #### H TAMMI, BMP #### [facility] [address] [place] [address] Dr. Paige Tee Urea nitrogen [Mass/Vol] 20.0 mg/dL Critically high 7.0-18.0 [facility] Comment on above: Performed By: #### H TAMMI, BMP #### [facility] [address] [place] [address] Dr. Paige Tee Urea nitrogen/Creatinine [Mass ratio] 18.0 mg/mg Normal [facility] Comment on above: Performed By: #### H TAMMI, BMP #### [facility] [address] [place] [address] Dr. Paige Tee TROPONIN, HIGH SENSITIVITYon 09-02-2022 HSTROP 4.1 pg/mL Normal 4.0-76.1 [facility] Comment on above: Result Comment: CUT- OFF POINTS HAVE BEEN ESTABLISHED BASED ON THE FOURTH UNIVERSAL DEFINITIONS OF MYOCARDIAL INFARCTION. THE UPPER REFERENCE LIMIT (URL) OF TROPONIN, DEFINED THE 99TH PERCENTILE OF cTnI DISTRIBUTION IN A REFERENCE POPULATION, HAS BEEN CONFIRMED THE DECISION THRESHOLD FOR VT DIAGNOSIS. Performed By: #### H ANJUPN #### [facility] [address] [place], [place] [address] Dr. Paige Tee HSTROP 4.5 pg/mL Normal 4.0-76.1 [facility] Comment on above: Result Comment: CUT- OFF POINTS HAVE BEEN ESTABLISHED BASED ON THE FOURTH UNIVERSAL DEFINITIONS OF MYOCARDIAL INFARCTION. THE UPPER REFERENCE LIMIT (URL) OF TROPONIN, DEFINED THE 99TH PERCENTILE OF cTnI DISTRIBUTION IN A REFERENCE POPULATION, HAS BEEN CONFIRMED THE DECISION THRESHOLD FOR VT DIAGNOSIS. Performed By: #### H STROBUBBA, [facility] #### [facility] [address] [place], [place] [address] Dr. Paige Tee XR CHEST 1 Von [...] by: BISMARK REDD Date: 2022-09-02 12:29 Normal [facility] STRESS/REST MULTIon 12-17 NM STRESS/REST MULTI Patient: KARLA MCCOLLUM Exam Date: 12/17/2021 : 1950 Gender:M Ordering : DR HOA TRAN . Admission #: [id number] Family : Order #: [id number] CLICK HERE TO VIEW EXAM RADIOLOGY REPORT [...] Redd MD on 12/18/2021 at 09:10 Normal [facility] BASIC METABOLIC PANELon - Calcium [Mass/Vol] 8.9 mg/dL Normal 8.6-10.3 [facility] Comment on above: Order Comment: No: D o not add to previous draw Performed By: #### 0 0071 #### [facility] [address] [place] [address], [facility] Chloride [Moles/Vol] 105 mmol/L Normal 98-107 [facility] Comment on above: Order Comment: No: D o not add to previous draw Performed By: #### 0 0071 #### [facility] [address] [place] [address], [place] CO2 [Moles/Vol] 25 mmol/L Normal 21-31 [facility] Comment on above: Order Comment: No: D o not add to previous draw Performed By: #### 0 0071 #### [facility] [address] [place] [address], [place] Creatinine [Mass/Vol] 0.82 mg/dL Normal 0.70-1.30 [facility] Comment on above: Order Comment: No: D o not add to previous draw Performed By: #### 0 0071 #### [facility] [address] [place] [address], [place] GFR/1.73 sq M predicted among blacks MDRD (S/P/Bld) [Vol rate/Area] mL/min/{1.73_m2} Normal >60 [facility] Comment on above: Order Comment: No: D o not add to previous draw Performed By: #### 0 0071 #### [facility] [address] [place] [address], [place] GFR/1.73 sq M predicted among non-blacks MDRD (S/P/Bld) [Vol rate/Area] mL/min/{1.73_m2} Normal >60 [facility] Comment on above: Order Comment: No: D o not add to previous draw Performed By: #### 0 0071 #### [facility] [address] [place] [address], [place] Glucose [Mass/Vol] 104 mg/dL High 70-100 [facility] Comment on above: Order Comment: No: D o not add to previous draw Performed By: #### 0 0071 #### [facility] [address] [place] [address], [place] Potassium [Moles/Vol] 3.6 mmol/L Normal 3.5-5.1 [facility] Comment on above: Order Comment: No: D o not add to previous draw Performed By: #### 0 0071 #### [facility] [address] [place] [address], [place] Sodium [Moles/Vol] 137 mmol/L Normal 136-145 [facility] Comment on above: Order Comment: No: D o not add to previous draw Performed By: #### 0 0071 #### [facility] [address] [place] [address], [place] Urea nitrogen [Mass/Vol] 13 mg/dL Normal 7-25 [facility] Comment on above: Order Comment: No: D o not add to previous draw Performed By: #### 0 0071 #### [facility] [address] [place] [address], [facility] CBC COMPLETE BLOOD COUNTon 10-12-2020 Erythrocyte distribution width (RBC) [Ratio] 13.1 % Normal 11.5-15.0 [facility] Comment on above: Order Comment: No: D o not add to previous draw Performed By: #### 3 5200 #### [facility] [address] [place] [id number], [facility] Hematocrit (Bld) [Volume fraction] 36.6 % Low 39.0-50.0 [facility] Comment on above: Order Comment: No: D o not add to previous draw Performed By: #### 3 5200 #### [facility] [address] [place] [address], [facility] Hemoglobin (Bld) [Mass/Vol] 11.6 g/dL Low 13.0-17.0 [facility] Comment on above: Order Comment: No: D o not add to previous draw Performed By: #### 3 5200 #### [facility] [address] [place] [address], [facility] MCH (RBC) [Entitic mass] 28.1 pg Normal 27.0-33.0 [facility] Comment on above: Order Comment: No: D o not add to previous draw Performed By: #### 3 5200 #### [facility] [address] [place] [id number], [facility] MCHC (RBC) [Mass/Vol] 31.7 g/dL Low 32.0-35.0 [facility] Comment on above: Order Comment: No: D o not add to previous draw Performed By: #### 3 5200 #### [facility] [address] [place] [address], [facility] MCV (RBC) [Entitic vol] 88.6 fL Normal 82.0-98.0 [facility] Comment on above: Order Comment: No: D o not add to previous draw Performed By: #### 3 5200 #### [facility] [address] [place] [address], [facility] Nucleated RBC/100 WBC (Bld) [Ratio] 0 % Normal 0-0 [facility] Comment on above: Order Comment: No: D o not add to previous draw Performed By: #### 3 5200 #### [facility] [address] [place] [address], [facility] PLAT CNT 289 10*3/uL Normal 150-400 [facility] Comment on above: Order Comment: No: D o not add to previous draw Performed By: #### 3 5200 #### [facility] [address] [place] [address], [facility] RBC (Bld) [#/Vol] 4.13 10*6/uL Low 4.20-5.70 [facility] Comment on above: Order Comment: No: D o not add to previous draw Performed By: #### 3 5200 #### [facility] [address] [place] [address], [facility] WBC (Bld) [#/Vol] 10.27 10*3/uL Normal 4.00-10.60 [facility] Comment on above: Order Comment: No: D o not add to previous draw Performed By: #### 3 5200 #### [facility] [address] [place] [address], [facility] BASIC METABOLIC PANELon -2 Calcium [Mass/Vol] 9.2 mg/dL Normal 8.6-10.3 [facility] Comment on above: Order Comment: No: D o not add to previous draw Performed By: #### 0 0071 #### [facility] [address] [place] [id number], [facility] Chloride [Moles/Vol] 106 mmol/L Normal 98-107 [facility] Comment on above: Order Comment: No: D o not add to previous draw Performed By: #### 0 0071 #### [facility] [address] [place] [address], [place] CO2 [Moles/Vol] 27 mmol/L Normal 21-31 [facility] Comment on above: Order Comment: No: D o not add to previous draw Performed By: #### 0 0071 #### [facility] [address] [place] [address], [place] Creatinine [Mass/Vol] 0.84 mg/dL Normal 0.70-1.30 [facility] Comment on above: Order Comment: No: D o not add to previous draw Performed By: #### 0 0071 #### [facility] [address] [place] [address], [place] GFR/1.73 sq M predicted among blacks MDRD (S/P/Bld) [Vol rate/Area] mL/min/{1.73_m2} Normal >60 [facility] Comment on above: Order Comment: No: D o not add to previous draw Performed By: #### 0 0071 #### [facility] [address] [place] [address], [place] GFR/1.73 sq M predicted among non-blacks MDRD (S/P/Bld) [Vol rate/Area] mL/min/{1.73_m2} Normal >60 [facility] Comment on above: Order Comment: No: D o not add to previous draw Performed By: #### 0 0071 #### [facility] [address] [place] [address], [place] Glucose [Mass/Vol] 101 mg/dL High 70-100 [facility] Comment on above: Order Comment: No: D o not add to previous draw Performed By: #### 0 0071 #### [facility] [address] [place] [address], [place] Potassium [Moles/Vol] 3.8 mmol/L Normal 3.5-5.1 [facility] Comment on above: Order Comment: No: D o not add to previous draw Performed By: #### 0 0071 #### [facility] [address] [place] [address], [facility] Sodium [Moles/Vol] 139 mmol/L Normal 136-145 [facility] Comment on above: Order Comment: No: D o not add to previous draw Performed By: #### 0 0071 #### [facility] [address] [place] [address], [facility] Urea nitrogen [Mass/Vol] 15 mg/dL Normal 7-25 [facility] Comment on above: Order Comment: No: D o not add to previous draw Performed By: #### 0 0071 #### [facility] [address] [place] [address], [facility] CBC COMPLETE BLOOD COUNTon 0 10-11-2020 Erythrocyte distribution width (RBC) [Ratio] 12.9 % Normal 11.5-15.0 [facility] Comment on above: Order Comment: No: D o not add to previous draw Performed By: #### 3 0 #### [facility] [address] [place] [address], [facility] Hematocrit (Bld) [Volume fraction] 38.6 % Low 39.0-50.0 [facility] Comment on above: Order Comment: No: D o not add to previous draw Performed By: #### 3 5200 #### [facility] [address] [place] [address], [place] Hemoglobin (Bld) [Mass/Vol] 12.3 g/dL Low 13.0-17.0 [facility] Comment on above: Order Comment: No: D o not add to previous draw Performed By: #### 3 5200 #### [facility] [address] [place] [address], [place] MCH (RBC) [Entitic mass] 28.5 pg Normal 27.0-33.0 [facility] Comment on above: Order Comment: No: D o not add to previous draw Performed By: #### 3 5200 #### [facility] [address] [facility] [address] MCHC (RBC) [Mass/Vol] 31.9 g/dL Low 32.0-35.0 [facility] Comment on above: Order Comment: No: D o not add to previous draw Performed By: #### 3 5200 #### [facility] [address] [facility] [place] [address], [facility] MCV (RBC) [Entitic vol] 89.6 fL Normal 82.0-98.0 [facility] Comment on above: Order Comment: No: D o not add to previous draw Performed By: #### 3 5200 #### [facility] [address] Nucleated RBC/100 WBC (Bld) [Ratio] 0 % Normal 0-0 [facility] Comment on above: Order Comment: No: D o not add to previous draw Performed By: #### 3 5200 #### [facility] [address] [facility] [place] [address], [facility] PLAT CNT 279 10*3/uL Normal 150-400 [facility] Comment on above: Order Comment: No: D o not add to previous draw Performed By: #### 3 5200 #### [facility] [address] [facility] [place] [address], [facility] RBC (Bld) [#/Vol] 4.31 10*6/uL Normal 4.20-5.70 [facility] Comment on above: Order Comment: No: D o not add to previous draw Performed By: #### 3 5200 #### [facility] [address] [place] [id number], [facility] WBC (Bld) [#/Vol] 10.25 10*3/uL Normal 4.00-10.60 [facility] Comment on above: Order Comment: No: D o not add to previous draw Performed By: #### 3 5200 #### [address] CTA HEART-CORONARY/ ARTERY B YPASS GRAFT WITH 3DPPon 10-11-2020 CTA HEART-CORONARY/ ARTERY BYPASS GRAFT WITH 3DPP [facility] Department of Radiology [address] [place] [id number] Patient Name: KARLA MCCOLLUM : 1950 Sex: M Age: Race: White Pt. Location: [id number] Patient Status: I Ordered Date: 10/11/2020 8:30:00 [...] otherwise. Electronically signed: Asa Hill. 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 Division of Service Date: 10/10/2020 Cardiology Birthdate: 1950 Adult Cardiovascular Room #: 3AB [id number] [address] [place] [address] Cardiovascular Laboratory Report INDICATION: The patient is [...] signed informed consent. He was brought to microbiology lab technician in a fasting state. The right wrist area was prepped and draped in usual fashion. Modified Satnam's test was favorable on the right. Access in the right radial artery was obtained using micropuncture technique. A 6-St Lucian x 11 cm Hydrophilic sheath was advanced, [...] adequate location, this was upsized to a 6-St Lucian x 11 cm sheath. Bilateral selective coronary angiography was then performed using 6-St Lucian JL3.5 and JR4 diagnostic catheters. The 6-St Lucian JR4 diagnostic catheter was then used to [...] Stern M.D. Date Trans: 10/11/2020 06:09 A/kevino [id number] cc: Hoa Tran M.D. [address], [facility] [address] Neli Stern M.D. Heart Failure/ Transplant Mailstop 1118 [facility] [address] Normal [facility] BASIC METABOLIC PANELon 09-17 Calcium [Mass/Vol] 9.0 mg/dL Normal 8.6-10.3 [facility] Comment on above: Order Comment: No: D o not add to previous draw Performed By: #### 0 0071, 17174 #### [facility] [address] [place] [address], [place] Chloride [Moles/Vol] 103 mmol/L Normal 98-107 [facility] Comment on above: Order Comment: No: D o not add to previous draw Performed By: #### 0 0071, 52746 #### [facility] [address] [place] [address], [place] CO2 [Moles/Vol] 25 mmol/L Normal 21-31 The [facility] Comment on above: Order Comment: No: D o not add to previous draw Performed By: #### 0 0071, 16182 #### [facility] [address] [place] [address], [place] Creatinine [Mass/Vol] 0.87 mg/dL Normal 0.70-1.30 [facility] Comment on above: Order Comment: No: D o not add to previous draw Performed By: #### 0 0071, 69212 #### [facility] [address] [place] [address], [place] GFR/1.73 sq M predicted among blacks MDRD (S/P/Bld) [Vol rate/Area] mL/min/{1.73_m2} Normal >60 [facility] Comment on above: Order Comment: No: D o not add to previous draw Performed By: #### 0 0071, 41939 #### [facility] [address] [place] [address], [place] GFR/1.73 sq M predicted among non-blacks MDRD (S/P/Bld) [Vol rate/Area] mL/min/{1.73_m2} Normal >60 [facility] Comment on above: Order Comment: No: D o not add to previous draw Performed By: #### 0 70, 58954 #### [facility] [address] [place] [address], [place] Glucose [Mass/Vol] 109 mg/dL High 70-100 [facility] Comment on above: Order Comment: No: D o not add to previous draw Performed By: #### 0 0071, 26826 #### [facility] [address] [place] [address], [place] Potassium [Moles/Vol] 3.5 mmol/L Normal 3.5-5.1 [facility] Comment on above: Order Comment: No: D o not add to previous draw Performed By: #### 0 0071, 58972 #### [facility] [address] [place] [address], [place] Sodium [Moles/Vol] 137 mmol/L Normal 136-145 [facility] Comment on above: Order Comment: No: D o not add to previous draw Performed By: #### 0 007, 20523 #### [facility] [address] [place] [address], [facility] Urea nitrogen [Mass/Vol] 14 mg/dL Normal 7-25 [facility] Comment on above: Order Comment: No: D o not add to previous draw Performed By: #### 0 70, 62919 #### [facility] [address] [place] [address], [facility] CBC COMPLETE BLOOD COUNTon 0 10-10-2020 Erythrocyte distribution width (RBC) [Ratio] 13.2 % Normal 11.5-15.0 [facility] Comment on above: Order Comment: No: D o not add to previous draw Performed By: #### 3 5200 #### [facility] [address] [place] [address], [facility] Hematocrit (Bld) [Volume fraction] 38.2 % Low 39.0-50.0 [facility] Comment on above: Order Comment: No: D o not add to previous draw Performed By: #### 3 5200 #### [facility] [address] [place] [address], [facility] Hemoglobin (Bld) [Mass/Vol] 12.2 g/dL Low 13.0-17.0 [facility] Comment on above: Order Comment: No: D o not add to previous draw Performed By: #### 3 5200 #### [facility] [address] [place] [address], [facility] MCH (RBC) [Entitic mass] 28.6 pg Normal 27.0-33.0 [facility] Comment on above: Order Comment: No: D o not add to previous draw Performed By: #### 3 5200 #### [facility] [address] [place] [address], [facility] MCHC (RBC) [Mass/Vol] 31.9 g/dL Low 32.0-35.0 [facility] Comment on above: Order Comment: No: D o not add to previous draw Performed By: #### 3 5200 #### [facility] [address] [place] [address], [facility] MCV (RBC) [Entitic vol] 89.5 fL Normal 82.0-98.0 [facility] Comment on above: Order Comment: No: D o not add to previous draw Performed By: #### 3 5200 #### [facility] [address] [place] [address], [facility] Nucleated RBC/100 WBC (Bld) [Ratio] 0 % Normal 0-0 [facility] Comment on above: Order Comment: No: D o not add to previous draw Performed By: #### 3 5200 #### [facility] [address] [place] [address], [facility] PLAT CNT 253 10*3/uL Normal 150-400 [facility] Comment on above: Order Comment: No: D o not add to previous draw Performed By: #### 3 5200 #### [facility] [address] [place] [address], [facility] RBC (Bld) [#/Vol] 4.27 10*6/uL Normal 4.20-5.70 [facility] Comment on above: Order Comment: No: D o not add to previous draw Performed By: #### 3 5200 #### [facility] [address] [place] [address], [facility] WBC (Bld) [#/Vol] 10.57 10*3/uL Normal 4.00-10.60 [facility] Comment on above: Order Comment: No: D o not add to previous draw Performed By: #### 3 5200 #### [facility] [address] [place] [id number], [facility] HEMOGLOBIN A1Con 10-10-2020 HbA1c (Bld) [Mass fraction] 6.0 % Normal 4.0-6.0 [facility] Comment on above: Order Comment: No: D o not add to previous draw Performed By: #### 3 1791 #### [facility] [address] [place] [address], [facility] HbA1c (Bld) [Mass fraction] 126 mmol/L Normal [facility] Comment on above: Order Comment: No: D o not add to previous draw Performed By: #### 3 1791 #### [facility] [address] [place] [address], [facility] LIPID PROFILEon 10-10-2020 Cholesterol [Mass/Vol] 144 mg/dL Normal 120-200 [facility] Comment on above: Order Comment: No: D o not add to previous draw Result Comment: CHOL ESTEROL REFERENCE RANGE: 20 YEARS AND OLDER CARDIOVASCULAR RISK Less than 200 mg/dl Low Risk 200 to 239 mg/dl Borderline Risk 240 mg/dl and greater High Risk Performed By: #### 0 0071, 67405 #### [facility] [address] [place] [address], [facility] Cholesterol in HDL [Mass/Vol] 30 mg/dL Normal 23-92 [facility] Comment on above: Order Comment: No: D o not add to previous draw Result Comment: Slig ht variation in normal range could be due to gender and/or age. HDL CHOLESTEROL REFERENCE RANGE: 20 years and older Cardiovascular Risk > or =60 mg/dL Desirable 40 TO 59 mg/dL Low Risk <40 mg/dL High Risk Performed By: #### 0 0071, 89985 #### [facility] [address] [place] [address], [facility] Cholesterol in LDL [Mass/Vol] 73 mg/dL Normal 0-130 [facility] Comment on above: Order Comment: No: D o not add to previous draw Result Comment: LDL IS A CALCULATION LDL IS ONLY VALID IF THE TRIG IS LESS THAN 400. Performed By: #### 0 0071, 63112 #### [facility] [address] [place] [address], [facility] Cholesterol.total/C holesterol in HDL [Mass ratio] 4.8 {ratio} High 0.0-4.5 [facility] Comment on above: Order Comment: No: D o not add to previous draw Performed By: #### 0 0071, 93674 #### [facility] [address] NON-HDL CHOLESTEROL 114 mg/dL Normal [facility] Comment on above: Order Comment: No: D o not add to previous draw Performed By: #### 0 0071, 53438 #### [facility] [address] Triglyceride [Mass/Vol] 203 mg/dL High 40-149 [facility] Comment on above: Order Comment: No: D o not add to previous draw Result Comment: TRIG LYCERIDE REFERENCE RANGE: 20 YEARS AND OLDER CARDIOVASCULAR RISK LESS THAN 150 mg/dl LOW RISK 150 TO 199 mg/dl BORDERLINE RISK 200 mg/dl AND GREATER HIGH RISK Performed By: #### 0 0071, 72724 #### [facility] [address] VLDL CHOL 41 mg/dL High 0-40 [facility] Comment on above: Order Comment: No: D o not add to previous draw Performed By: #### 0 0071, 60176 #### [facility] [address] PROTHROMBIN TIMEon 1 INR Coag (PPP) [Relative time] 1.00 {INR} Normal 0.91-1.16 [facility] Comment on above: Order Comment: [...] 1995;108:231S-246S. Performed By: #### 5 6101 #### [facility] [address] [employer] PT Coag (PPP) [Time] 13.2 s Normal 12.3-14.8 [facility] Comment on above: Order Comment: No: D o not add to previous draw Result Comment: ALL RESULTS MUST BE INTERPRETED WITH RESPECT TO BLOOD DRAWING ARTIFACT OR DILUTION ERROR OF ANTICOAGULANT AT THE TIME OF SAMPLING. Performed By: #### 5 6101 #### [facility] [address] [facility]. [address] BNP (B-TYPE NATRIURETIC PEPT FELISA)on 10-09-2020 Natriuretic peptide B (Bld) [Mass/Vol] 32 pg/mL Normal 0-100 [facility] Comment on above: Order Comment: No: D o not add to previous draw Result Comment: Give n the appropriate clinical setting a BNP result of >100 pg/mL indicates congestive heart failure. Performed By: #### 8 5123 #### [facility] [address] [facility] [place] [address], [facility] TROPONIN-Ion 10-09-2020 Troponin I.cardiac [Mass/Vol] 0.00 ng/mL Normal 0.00-0.04 [facility] Comment on above: Order Comment: No: D o not add to previous draw Result Comment: REFE RENCE RANGES: 0.00 - 0.14 ng/ml NEGATIVE 0.15 - 0.25 ng/ml INDETERMINATE > 0.25 ng/ml INDICATIVE OF AN M.I. Performed By: #### 3 5200 #### [facility] [address] [place] [address], [facility] Provider Letter FTon 09-20 Provider Letter [facility] Hoa Tran, [address] [facility] [place] [address] [place] [address] Re: KARLA MCCOLLUM Date of : 1950 Thank you for your referral of Karla Mccollum who was seen on consultation on Sep 17, 2020, for three skin lesions of concern. I have enclosed my consultation note for your review, and I will be happy to follow Karla should he need further treatment. Sincerely, Karla Dye MD General Surgery Normal [facility] Facesheeton 09-18-2020 Facesheet [id number] .00CD:127 Normal [facility] Ambulatory Clinical Summaryo n 09-17-2020 Ambulatory Clinical Summary {[id number]}CD:[id number] Normal [facility] General Surgery Office/Clini c Noteon [...] Primary malignant neoplasm of lung: Father. Normal [facility] Comment on above: Result Comment: Elec tronically Signed By: SHEY WARD, Karla Leos\Date and Time Signed: 09/17/20 16:29 EST Physician Referralon 021 Physician Referral [id number] 1 [id number] .[id number]:127 Normal [facility] Encounters Encounter Date Encounter Type Care Provider Facility Start: 12-22-2023 End: 12-22-2023 ambulatory [facility] Start: 12-15-2023 End: 12-15-2023 ambulatory [facility] Redd Facility:[facility] Start: 12-02-2023 End: 12-02-2023 ambulatory KAMRAN Ester GUILLEN Not Available Start: 06-18-2023 End: [facility] Start: 11-24-2022 End: 11-25-[address] NELI STERN Facility: Start: 09-02-2022 End: 09-02-[address] HOA TRAN . Facility:[facility] Start: 12-17-2021 End: 12-18-[address] HOA TRAN . Facility:[facility] Start: 10-09-2020 End: 10-12-2020 Evaluation and management of inpatient HOA TRAN Facility:[facility] Procedures Date Procedure Procedure Detail Performing Clinician Start: 10-10-2020 INTRODUCE OTH THERAP SUBST IN CORONARY ART, PERC NELI Pierre MOUKARBROBER Start: 10-10-2020 PLAIN RADIOGRAPHY OF MULT COR ART USING L OSM CONTRAST NELI STERN Start: 10-10-2020 PLAIN RADIOGRAPHY OF R LOW EXTREM ART USING L OSM CONTRAST NELI Pierre MOUKARBROBER Payers Date Payer Category Payer Self-pay 2023 Medicare [id number] 1958 Medicare [id number] 1958 Unknown [id number] 1950 Unknown [id number] 2.16.8 [id number] 1950 Unknown [id number] 2.16.84 [id number] 1950 Unknown [id number] 2.16.84 [id number] 1950 Unknown [id number] 2.16.84 [id number] 1950 Unknown [id number] 2.16.84 [id number] Unknown [id number] 2.16.8 [id number] Progress note 12-22-2023 Note Date & Type Note Facility 12-22-2023 Note [place] [facility]iology - [facility] Subjective Karla Mccollum is a 73 [...] mg daily. He was admitted to the [facility] on 05/06/2023 with chest pain and [...] Disp: 90 tablet, (more content not included)... [facility] Progress note 06-18-2023 Note Date & Type Note Facility 06-18-2023 Note [place] Cardiology - [facility] Subjective Karla Mccollum is a 73 y.o. year old male patient being seen for 6 mo follow up CAD, coronary artery spasm, hypertension, and hyperlipidemia. He was recently admitted to [facility] for chest pain in Apr 2023. [...] mg daily. He was admitted to the [facility] on 05/06/2023 with chest pain and [...] Current Outpatient Medications (more content not included)... [facility] Clinical Note 12-17-2021 Note Date [...] and reported in a separate dictation. The [facility] Summary Purpose Family History No Family History Records FoundNo Family History Records FoundNo Family History Records FoundNo Family History Records FoundNo Family History Records FoundNo Family History Records Found Advance Directives No Advanced Directives Records FoundNo Advanced Directives Records FoundNo Advanced Directives Records FoundNo Advanced Directives Records FoundNo Advanced Directives Records FoundNo Advanced Directives Records Found Hospital Course Note MR#: [id number] [facility] Pt. Name: Karla Mccollum Admitted: 10/09/2020 [...] and content) DATE CREATED AUTHOR 09/22/2020 [facility] DATE CREATED AUTHOR AUTHOR'S ORGANIZ ATION 10/15/[address] [facility] DATE CREATED AUTHOR AUTHOR'S ORGANIZ ATION 11/30/2022 [facility] DATE CREATED AUTHOR AUTHOR'S ORGANIZ ATION 12/03/2023 [facility] DATE CREATED AUTHOR AUTHOR'S ORGANIZ ATION 12/18/2023 [facility] DATE CREATED AUTHOR AUTHOR'S JUNIOR QUAN 12/24/2023 [facility] FOR RECORDS PERTAINING TO PATIENTS WHO [...] BE BASED ON THE PRIMARY CLINICAL RECORDS. [employer] provides no warranty or guarantee of the accuracy or completeness of information in this document.
--- NOTE | 2024-05-15 10:48 | US_ITS ---
[address] [address] Patient Name: KARLA CUENCA MRN: [id number] date: 1950 Sex: M Assigned Patient Location: US Current Patient Location: US Accession/Order Number: [id number] Exam Date: 05/15/2024 11:40 Report Date: 05/15/2024 13:03 At the request of: HOA BRIAN Procedure: US biopsy FNA add lesion EXAMINATION: US biopsy FNA add lesion, US biopsy thyroid HISTORY: Thyroid Nodule COMPARISON: Ultrasound thyroid 05/05/2024 TECHNIQUE: After obtaining informed consent, ultrasound-guided fine needle aspiration was performed in the usual sterile manner. FINDINGS: IMAGING: Ultrasound. BIOPSY NEEDLE: 25-gauge; 3 separate passes on right, 4 separate passes on left LOCATION: Inferior right lobe 12 mm hypoechoic nodule/area; not well-defined. Inferior left lobe 11 mm hypoechoic nodule. SPECIMEN TYPE: Cellular tissue. LOCAL ANESTHETIC: Buffered Xylocaine. COMPLICATIONS: None. LABORATORY: Prepared slide smears and washings for cell block evaluation. OTHER: Negative. PATHOLOGY: Pending. An addendum will be added when results are available. US/US biopsy FNA add lesion IMPRESSION: 1. No postprocedural complications following ultrasound guided fine needle aspiration (FNA). 2. Pathology results are pending. 3. Difficult fine-needle aspiration due to visibility, deep location of the nodules adjacent the carotid arteries, and constant motion within the patient's neck. Electronically authenticated by: MARK ANTHONY ALMONTE Date: 05/15/2024 13:03
--- NOTE | 2024-05-15 10:48 | US_ITS ---
The [address] [address] Patient Name: KARLA CUENCA MRN: [id number] date: 1950 Sex: M Assigned Patient Location: US Current Patient Location: US Accession/Order Number: [id number] Exam Date: 05/15/2024 11:40 Report Date: 05/15/2024 13:03 At the request of: HOA BRIAN Procedure: US biopsy thyroid EXAMINATION: US biopsy FNA add lesion, US biopsy thyroid HISTORY: Thyroid Nodule COMPARISON: Ultrasound thyroid 05/05/2024 TECHNIQUE: After obtaining informed consent, ultrasound-guided fine needle aspiration was performed in the usual sterile manner. FINDINGS: IMAGING: Ultrasound. BIOPSY NEEDLE: 25-gauge; 3 separate passes on right, 4 separate passes on left LOCATION: Inferior right lobe 12 mm hypoechoic nodule/area; not well-defined. Inferior left lobe 11 mm hypoechoic nodule. SPECIMEN TYPE: Cellular tissue. LOCAL ANESTHETIC: Buffered Xylocaine. COMPLICATIONS: None. LABORATORY: Prepared slide smears and washings for cell block evaluation. OTHER: Negative. PATHOLOGY: Pending. An addendum will be added when results are available. US/US biopsy thyroid IMPRESSION: 1. No postprocedural complications following ultrasound guided fine needle aspiration (FNA). 2. Pathology results are pending. 3. Difficult fine-needle aspiration due to visibility, deep location of the nodules adjacent the carotid arteries, and constant motion within the patient's neck. Electronically authenticated by: MARK ANTHONY ALMONTE Date: 05/15/2024 13:03
[2024-05-15 10:55] VITALS: BP 130/75; PULSE 70; O2SAT 99
[2024-05-15] MEDS: LIDOCAINE HCL 10 ML, SODIUM BICARBONATE 1 MEQ INJ (11:50)
--- NOTE | 2024-05-15 15:16 | SUR.PREOP ---
05/12/24 Pt instructed on procedure, date, time, and prep. Instructed pt to hold his ASA x 3 days.
== END 2024-05-15 12:30 | disposition home or self-care (01) ==
LOC: US 10:21
PROVIDERS: Radiology Diagnostic Radiology; PCP Family Medicine; Visit Provider Family Medicine
DX: E04.1 Nontoxic single thyroid nodule (principal)
CPT/HCPCS: 10005; 10006; 88112; 88173

== ENCOUNTER 2024-05-23 20:47 | Outpatient (OUT) | payer MEDICARE, SELFPAY ==
--- OUTSIDE RECORDS SUMMARY | 2024-05-23 20:49 | XMS_ITS | CCD ---
Author Organization [facility] Care Team Providers Care Berry Planter Name Role Phone HOA TRAN Primary Care Unavailable UNKNOWN, PROVIDER Referring Unavailable GRISELDA, HANI Admitting Unavailable GRISELDA, HANI Attending Unavailable IN Procedure Practitioner Unavailab le UNKNOWN, PROVIDER Surgeon Unavailable SNEHAL ., DR CAMARA Primary Care Unavailable DIAB ., KWADWO Admitting Unavailable DIAB ., KWADWO Attending Unavailable Bismark Redd Unavailable DIAB ., KWADWO Consulting Unavailable MOUKARBEL, DR QUINTEROS Admitting Unavailable MOUKARBEL, DR QUINTEROS Attending Unavailable SNEHAL ., DR CAMARA Primary Care Unavailable MOUKARBEL, DR QUINTEROS Consulting Unavailable HOY ., DR CAMARA Admitting Unavailable HOY ., DR CAMARA Attending Unavailable HOY ., DR CAMARA Primary Care Unavailable HOY ., DR CAMARA Consulting Unavailable Bismark Redd Unavailable KAMRAN GUILLEN Attending Unavailable MOUKARBROBER, NELI Attending Unavailable MOUKARBEL, NELI Attending Unavailable MD Hoa Tran Attending Provider Hoa Tran Attending Unavailable Hoa Tran Admitting Unavailable Bismark Redd V Attending Unavailable Bismark Redd V Admitting Unavailable Problems Active Problems Problem Classification Problem [...] Onset: 09-02-2022 Episodic Other aftercare (1 source) [facility] (current) use of aspirin; Translations: [PENITENTIARY CURRENT USE OF ASPIRIN] Onset: 09-03-2022 Episodic Other aftercare (1 source) 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; Translations: [OTH PENITENTIARY CURRENT DRUG THERAPY] Onset: 09-03-2022 Episodic Residual [...] Test Name Value Interpretation Reference Range Facility [facility] 05-15-2024 L Specimen: [id number] Received: 05/17/24 Status: EDWINA Spears Num: [id number] Spec Type: Cytology Subm Dr: Hoa Tran MD Tissues: A FNA SLIDES NOPATH (RT THY) B FNA SLIDES NOPATH (LT THY) Procedures: Cyto Int and Re/2, PAPSTN/10 Age/ Patient Sex Location Account Attending Physician Karla Mccollum/Sandi LABELL [id number] Hoa Tran MD SPEC NUM: [id number] RECD: 05/17/24 STATUS: EDWINA APRIL NUM: [id number] SEAN: 05/15/24- DR: Hoa Tran MD ENTERED: 05/17/[address]: Lili,Lab Alex Zarate MD SPEC TYPE: Cytology DEPT: GREG MORRISON ENTERED BY: [id number] RECV BY: [id number] ORDERED: Cyto Int and Re/2, PAPSTN/10 ORDERED: Cyto Int and Re/2, PAPSTN/10 Pathological Diagnosis A. Right thyroid, inferior nodule, fine needle aspiration: - Unsatisfactory for evaluation due to scant cellularity. - Scant watery colloid, non-diagnostic ([place] Category:I). B. Left thyroid, inferior nodule, fine needle aspiration: - Unsatisfactory for evaluation due to scant cellularity. - Scant watery colloid and blood, non-diagnostic ([place] Category:I). Comment: Recommend repeat thyroid FNA as clinically indicated. Clinical Information Bilateral thyroid nodules Gross Description A. (RT) Received fixed in [employer] is <1 ml colorless clear fluid for cytology and labeled as right thyroid nodule inferior. ThinPrep preparations are prepared for microscopic examination. Also received are 4 spray fixed smeared slides for pap and a Veracyte vial stored at -20 microscopic examination. (/il) -------- Specimen: [id number] Received: 05/17/24 Status: EDWINA Spears Num: [id number] Spec Type: Cytology Subm Dr: Hoa Tran MD Tissues: A FNA SLIDES NOPATH (RT THY) B FNA SLIDES NOPATH (LT THY) Procedures: Cyto Int and Re/2, PAPSTN/10 -------- Patient: Karla Mccollum [id number] (Continued) -------- Specimen: [id number] Received: 05/17/24 (Continued) Gross Description (Continued) Signed (signature on file) Rajesh Ridley MD 05/18/24 1609 -------- Specimen: [id number] Received: 05/17/24 Status: EDWINA Spears Num: [id number] Spec Type: Cytology Subm Dr: Hoa Tran MD Tissues: A FNA SLIDES NOPATH (RT THY) B FNA SLIDES NOPATH (LT THY) Procedures: Cyto Int and Re/2, PAPSTN/10 -------- Patient: Karla Mccollum [id number] (Continued) -------- Specimen: [id number] Received: 05/17/24 (Continued) Gross Description (Continued) B. (LT) Received fixed in Cytol[employer] is <1 ml colorless clear fluid for cytology and labeled as left thyroid nodule inferior. ThinPrep preparations are prepared for microscopic examination. Also received are 4 spray fixed smeared slides for pap and a Veracyte vial stored at -20 for microscopic examination. (/il) Microscopic Description A B: Microscopic examination is performed. CPT Codes 57313 x2, 51043 x2 -------- -------- Specimen: [id number] Received: 05/17/24 Status: EDWINA Spears Num: [id number] Spec Type: Cytology Subm Dr: Hoa Tran MD Tissues: A FNA SLIDES NOPATH (RT THY) B FNA SLIDES NOPATH (LT THY) Procedures: Cyto Int and Re/2, PAPSTN/10 -------- Patient: Karla Mccollum [id number] (Continued) -------- Signed (signature on file) Rajesh Ridley MD 05/18/24 1609 Normal [facility] 12-22-2023 Follow-up visit [id number] Karla Mccollum 1950 M Date Provider Department Center 12/22/2023 [facility] Lili Antony Family History Problem Relation Age of Onset Hypertension Mother Family Status - Relation Status Age at Mother Level of Service:52038 IN OFFICE/OUTPATIENT ESTABLISHED LOW MDM 20 MIN Normal [facility] Rudolph 12-15-2023 L Specimen: [id number] Received: 12/16/23 Status: EDWINA Req Num: [id number] Spec Type: Cytology Subm Dr: Bismark Redd MD Tissues: A FNA SLIDES NOPATH (LT SUBMENT MASS) Procedures: HE/2, Cyto Int and Re, PAPSTN/7 Age/ Patient Sex Location Account Attending Physician Karla Mccollum 73/M LABELL [id number] Bismark Redd MD SPEC NUM: [id number] RECD: 12/16/23 STATUS: EDWINA FISHERPerry NUM: [id number] SEAN: 12/15/23- SUBM DR: Bismark Redd MD ENTERED: 12/16/23 [facility] DR: Elisha Pearson MD SPEC TYPE: Cytology DEPT: GREG MNRADHA ENTERED BY: [id number] RECV BY: [id number] ORDERED: HE/2, Cyto Int and Re, PAPSTN/7 [...] to be stained pap are additionally received. (CC/il) CPT Codes 08714 -------- -------- Specimen: [id number] Received: 12/16/23 Status: EDWINA Spears Num: [id number] Spec Type: Cytology Subm Dr: Bismark Redd MD Tissues: A FNA SLIDES NOPATH (LT SUBMENT MASS) Procedures: HE/2, Cyto Int and Re, PAPSTN/7 -------- Patient: Karla Mccollum [id number] (Continued) -------- Signed (signature on file) Bismark Quiñonez MD 12/17/23 1054 Normal [facility] 06-18-2023 Follow-up visit [id number] Karla Mccollum 1950 M Date Provider Department Center 06/18/2023 [facility]NELI ST[facility] Family History Problem Relation Age of Onset Hypertension Mother Family Status - Relation Status Age at Mother Level of Service:24293 IN OFFICE/OUTPATIENT ESTABLISHED MOD MDM 30-39 MIN Normal [facility] LIPID PROFILEon 11-24-2022 CHOL-HDL RATIO NORM SEE BELOW Normal [facility] Comment on above: Result Comment: 3.3 - 4.4 LOW RISK 4.4 - 7.1 AVERAGE RISK 7.1 - 11.0 MODERATE RISK >11.0 HIGH RISK Performed By: #### L IPID #### [facility] [address] [address] [address] Paige Tee Cholesterol [Mass/Vol] 151 mg/dL Normal <=200 [facility] Comment on above: Performed By: #### L IPID #### [facility] [address] [address] [address] Paige Tee Cholesterol in HDL [Mass/Vol] 40 mg/dL Normal 40-60 [facility] Comment on above: Performed By: #### L IPID #### [facility] [address] [address] [address] Paige Tee Cholesterol in LDL [Mass/Vol] 87.4 mg/dL Normal [facility] Comment on above: Performed By: #### L IPID #### [facility] [address] [address] [address] Paige Tee Cholesterol.total/C holesterol in HDL [Mass ratio] 3.8 {ratio} Normal [facility] Comment on above: Performed By: #### L IPID #### [facility] [address] [address] [address] Paige Tee HDL NORMAL > or = 60 mg/dl - LO W CARDIOVASCULAR RISK <40 mg/dl - HIGH CARDIOVASCULAR RISK Normal [facility] Comment on above: Performed By: #### L IPID #### [facility] [address] [place] [address] Dr. Paige Tee LDL CALC NORMAL SEE BELOW Normal [facility] Comment on above: Result Comment: <100 mg/dl OPTIMAL 100 - 129 mg/dl NEAR OR ABOVE OPTIMAL 130 - 159 mg/dl BORDERLINE HIGH 160 - 189 mg/dl HIGH >190 mg/dl VERY HIGH Performed By: #### L IPID #### [facility] [address] [place] [address] Dr. Paige Tee Triglyceride [Mass/Vol] 118 mg/dL Normal <=150 [facility] Comment on above: Performed By: #### L IPID #### [facility] [address] [place] [address] Dr. Paige Tee VLDL CALC 23.6 mg/dL Normal [facility] Comment on above: Performed By: #### L IPID #### [facility] [address] [place] [address] Dr. Paige Tee CBC AUTO DIFFon 09-02-2022 BASO # 0.1 103/ul Normal 0.0-0.1 [facility] Comment on above: Performed By: #### C BC #### [facility] [address] [place] [address] Dr. Paige Tee Basophils/100 WBC (Bld) 0.6 % Normal 0.2-2.0 [facility] Comment on above: Performed By: #### C BC #### [facility] [address] [place] [address] Dr. Paige Tee EO # 0.4 103/ul Normal 0.0-0.7 [facility] Comment on above: Performed By: #### C BC #### [facility] [address] [place] [address] Dr. Paige Tee Eosinophils/100 WBC (Bld) 4.0 % Normal 0.9-7.0 [facility] Comment on above: Performed By: #### C BC #### [facility] [address] [place] [address] Dr. Paige Tee Erythrocyte distribution width (RBC) [Ratio] 13.8 % Normal 11.0-15.0 [facility] Comment on above: Performed By: #### C BC #### [facility] [address] [place] [address] Dr. Paige Tee Hematocrit (Bld) [Volume fraction] 35.9 % Critically low 42.0-54.0 [facility] Comment on above: Performed By: #### C BC #### [facility] [address] [place] [address] Dr. Paige Tee Hemoglobin (Bld) [Mass/Vol] 11.9 g/dL Critically low 14.0-18.0 [facility] Comment on above: Performed By: #### C BC #### [facility] [address] [place] [address] Dr. Paige Tee IG # 0.04 10e3/ul Critically high 0.00-0.03 [facility] Comment on above: Performed By: #### C BC #### [facility] [address] [place] [address] Dr. Paige Tee IG % 0.4 % Normal 0.0-0.5 [facility] Comment on above: Performed By: #### C BC #### [facility] [address] [place] [address] Dr. Paige Tee LYMPH # 3.2 103/ul Normal 1.2-3.8 [facility] Comment on above: Performed By: #### C BC #### [facility] [address] [place] [address] Dr. Paige Tee Lymphocytes/100 WBC (Bld) 30.0 % Normal 20.5-60.0 [facility] Comment on above: Performed By: #### C BC #### [facility] [address] [place] [address] Dr. Paige Tee MANUAL DIFF REQ NO Normal [facility] Comment on above: Performed By: #### C BC #### [facility] [address] [place] [address] Dr. Paige Tee MCH (RBC) [Entitic mass] 27.9 pg Normal 25.9-34.0 [facility] Comment on above: Performed By: #### C BC #### [facility] [address] [place] [address] Dr. Paige Tee MCHC (RBC) [Mass/Vol] 33.1 g/dL Normal 29.9-35.2 [facility] Comment on above: Performed By: #### C BC #### [facility] [address] [place] [address] Dr. Paige Tee MCV (RBC) [Entitic vol] 84.3 fL Normal 80.0-94.0 [facility] Comment on above: Performed By: #### C BC #### [facility] [address] [place] [address] Dr. Paige Tee MONO # 0.8 103/ul Normal 0.3-0.8 [facility] Comment on above: Performed By: #### C BC #### [facility] [address] [place] [address] Dr. Paige Tee Monocytes/100 WBC (Bld) 7.5 % Normal 1.7-12.0 [facility] Comment on above: Performed By: #### C BC #### [facility] [address] [place] [address] Dr. Paige Tee NEUT # 6.2 103/ul Normal 1.4-6.5 [facility] Comment on above: Performed By: #### C BC #### [facility] [address] [place] [address] Dr. Paige Tee Neutrophils/100 WBC (Bld) 57.5 % Normal 43.0-75.0 [facility] Comment on above: Performed By: #### C BC #### [facility] [address] [place] [address] Dr. Paige Tee Platelet mean volume (Bld) [Entitic vol] 9.5 fL Normal 9.5-13.5 [facility] Comment on above: Performed By: #### C BC #### [facility] [address] [place] [address] Dr. Paige Tee PLT 314 103/ul Normal 150-450 [facility] Comment on above: Performed By: #### C BC #### [facility] [address] [place] [address] Dr. Paige Tee RBC 4.26 106/ul Critically low 4.70-6.10 [facility] Comment on above: Performed By: #### C BC #### [facility] [address] [address] [address] Paige Tee WBC 10.8 103/ul Normal 4.0-11.0 [facility] Comment on above: Performed By: #### C BC #### [facility] [address] [place] [address] Dr. Paige Tee Covid-19 PCR (CVDTB)on 08-16 SARS-CoV-2 (COVID-19) RNA UMER+probe Ql (Unsp spec) Not detected Normal NOT DETECTED [facility] Comment on above: Result Comment: When [...] for this test is supported by the [place] [employer] and Human Service's declaration that [...] used). Performed By: #### C VDTBH #### [facility] [address] [place] [address] Dr. Paige Tee PROF CHEM 8 (BAS METB)on Anion gap [Moles/Vol] 13.7 mmol/L Normal [facility] Comment on above: Performed By: #### H STROPN, BMP #### [facility] [address] [address] [address] Paige Tee Calcium [Mass/Vol] 9.1 mg/dL Normal 8.5-10.1 [facility] Comment on above: Performed By: #### H STROPN, BMP #### [facility] [address] [address] [address] Paige Tee Chloride [Moles/Vol] 104 mmol/L Normal 98-107 [facility] Comment on above: Performed By: #### H STROPN, BMP #### [facility] [address] [address] [address] Paige Tee CO2 [Moles/Vol] 24.4 mmol/L Normal 21.0-32.0 [facility] Comment on above: Performed By: #### H STROPN, BMP #### [facility] [address] [place] [address] Dr. Paige Tee Creatinine [Mass/Vol] 1.11 mg/dL Normal 0.70-1.30 [facility] Comment on above: Performed By: #### H STROPN, BMP #### [facility] [address] [place] [address] Dr. Paige Tee EGFR-AF SAMOAN >60 Normal >=60 [facility] Comment on above: Performed By: #### H STROPN, BMP #### [facility] [address] [place] [address] Dr. Paige Tee EGFR-NON AF SAMOAN >60 Normal >=60 [facility] Comment on above: Performed By: #### H STROPN, BMP #### [facility] [address] [address] [address] Paige Tee Glucose [Mass/Vol] 115 mg/dL Critically high 74-106 [facility] Comment on above: Performed By: #### H STROPN, BMP #### [facility] [address] [address] [address] Pagie Tee Potassium [Moles/Vol] 4.1 mmol/L Normal 3.5-5.1 [facility] Comment on above: Performed By: #### H STROPN, BMP #### [facility] [address] [address] [address] Paige Tee Sodium [Moles/Vol] 138 mmol/L Normal 136-145 [facility] Comment on above: Performed By: #### H STROPN, BMP #### [facility] [address] [address] [address] Paige Tee Urea nitrogen [Mass/Vol] 20.0 mg/dL Critically high 7.0-18.0 [facility] Comment on above: Performed By: #### H STROPN, BMP #### [facility] [address] [address] [address] Paige Tee Urea nitrogen/Creatinine [Mass ratio] 18.0 mg/mg Normal [facility] Comment on above: Performed By: #### H ANJUPN, BMP #### [facility] [address] [place] [address] Dr. Paige Tee TROPONIN, HIGH SENSITIVITYon 09-02-2022 HSTROP 4.1 pg/mL Normal 4.0-76.1 [facility] Comment on above: Result Comment: CUT- OFF POINTS HAVE BEEN ESTABLISHED BASED ON THE FOURTH UNIVERSAL DEFINITIONS OF MYOCARDIAL INFARCTION. THE UPPER REFERENCE LIMIT (URL) OF TROPONIN, DEFINED THE 99TH PERCENTILE OF cTnI DISTRIBUTION IN A REFERENCE POPULATION, HAS BEEN CONFIRMED THE DECISION THRESHOLD FOR PA DIAGNOSIS. Performed By: #### H STROPN #### [facility] [address] [place] [address] Dr. Paige Tee HSTROP 4.5 pg/mL Normal 4.0-76.1 [facility] Comment on above: Result Comment: CUT- OFF POINTS HAVE BEEN ESTABLISHED BASED ON THE FOURTH UNIVERSAL DEFINITIONS OF MYOCARDIAL INFARCTION. THE UPPER REFERENCE LIMIT (URL) OF TROPONIN, DEFINED THE 99TH PERCENTILE OF cTnI DISTRIBUTION IN A REFERENCE POPULATION, HAS BEEN CONFIRMED THE DECISION THRESHOLD FOR PA DIAGNOSIS. Performed By: #### H STROPN, BMP #### [facility] [address] [address] [address] Paige Tee XR CHEST 1 Von [...] by: BISMARK REDD Date: 2022-09-02 12:29 Normal [facility] NM STRESS/REST MULTIon 12-17 NM STRESS/REST MULTI Patient: KARLA MCCOLLUM Exam Date: 12/17/2021 : 1950 Gender:M Ordering : DR HOA TRAN . Admission #: [id number] Family : Order #: [id number] CLICK HERE TO VIEW EXAM RADIOLOGY REPORT [...] MD on 12/18/2021 at 09:10 Normal [facility] BASIC METABOLIC PANELon -2 Calcium [Mass/Vol] 8.9 mg/dL Normal 8.6-10.3 [facility] Comment on above: Order Comment: No: D o not add to previous draw Performed By: #### 0 0071 #### [facility] [address] [place] [address], [place] Chloride [Moles/Vol] 105 mmol/L Normal 98-107 [facility] Comment on above: Order Comment: No: D o not add to previous draw Performed By: #### 0 0071 #### [facility] [address] [place] [address], [place] CO2 [Moles/Vol] 25 mmol/L Normal 21-31 [facility] Comment on above: Order Comment: No: D o not add to previous draw Performed By: #### 0 0071 #### [facility] [address] [place] [address], [place] Creatinine [Mass/Vol] 0.82 mg/dL Normal 0.70-1.30 [facility] Comment on above: Order Comment: No: D o not add to previous draw Performed By: #### 0 0071 #### [facility] [address] [place] [address], [place] GFR/1.73 sq M predicted among blacks MDRD (S/P/Bld) [Vol rate/Area] mL/min/{1.73_m2} Normal >60 [facility] Comment on above: Order Comment: No: D o not add to previous draw Performed By: #### 0 0071 #### [facility] [address] [place] [address], [place] GFR/1.73 sq M predicted among non-blacks MDRD (S/P/Bld) [Vol rate/Area] mL/min/{1.73_m2} Normal >60 [facility] Comment on above: Order Comment: No: D o not add to previous draw Performed By: #### 0 0071 #### [facility] [address] [place] [address], [place] Glucose [Mass/Vol] 104 mg/dL High 70-100 [facility] Comment on above: Order Comment: No: D o not add to previous draw Performed By: #### 0 0071 #### [facility] [address] [place] [address], [facility] Potassium [Moles/Vol] 3.6 mmol/L Normal 3.5-5.1 [facility] Comment on above: Order Comment: No: D o not add to previous draw Performed By: #### 0 0071 #### [facility] [address] [place] [address], [place] Sodium [Moles/Vol] 137 mmol/L Normal 136-145 [facility] Comment on above: Order Comment: No: D o not add to previous draw Performed By: #### 0 0071 #### [facility] [address] [place] [address], [facility] Urea nitrogen [Mass/Vol] 13 mg/dL Normal 7-25 [facility] Comment on above: Order Comment: No: D o not add to previous draw Performed By: #### 0 0071 #### [facility] [address] [place] [address], [facility] CBC COMPLETE BLOOD COUNTon 0 10-12-2020 Erythrocyte distribution width (RBC) [Ratio] 13.1 % Normal 11.5-15.0 [facility] Comment on above: Order Comment: No: D o not add to previous draw Performed By: #### 3 5200 #### [facility] [address] [place] [address], [place] Hematocrit (Bld) [Volume fraction] 36.6 % Low 39.0-50.0 [facility] Comment on above: Order Comment: No: D o not add to previous draw Performed By: #### 3 5200 #### [facility] [address] [place] [address], [facility] Hemoglobin (Bld) [Mass/Vol] 11.6 g/dL Low 13.0-17.0 [facility] Comment on above: Order Comment: No: D o not add to previous draw Performed By: #### 3 5200 #### [facility] [address] [place] [address], [facility] MCH (RBC) [Entitic mass] 28.1 pg Normal 27.0-33.0 [facility] Comment on above: Order Comment: No: D o not add to previous draw Performed By: #### 3 5200 #### [facility] [address] [place] [id number], [facility] MCHC (RBC) [Mass/Vol] 31.7 g/dL Low 32.0-35.0 [facility] Comment on above: Order Comment: No: D o not add to previous draw Performed By: #### 3 5200 #### [facility] [address] [facility] [place] [address], [facility] MCV (RBC) [Entitic vol] 88.6 fL Normal 82.0-98.0 [facility] Comment on above: Order Comment: No: D o not add to previous draw Performed By: #### 3 5200 #### [facility] [address] [facility] [place] [address], [facility] Nucleated RBC/100 WBC (Bld) [Ratio] 0 % Normal 0-0 [facility] Comment on above: Order Comment: No: D o not add to previous draw Performed By: #### 3 5200 #### [facility] [address] [place] [address], [facility] PLAT CNT 289 10*3/uL Normal 150-400 [facility] Comment on above: Order Comment: No: D o not add to previous draw Performed By: #### 3 5200 #### [facility] [address] [place] [address], [place] RBC (Bld) [#/Vol] 4.13 10*6/uL Low 4.20-5.70 [facility] Comment on above: Order Comment: No: D o not add to previous draw Performed By: #### 3 5200 #### [facility] [address] [place] [address], [place] WBC (Bld) [#/Vol] 10.27 10*3/uL Normal 4.00-10.60 [facility] Comment on above: Order Comment: No: D o not add to previous draw Performed By: #### 3 5200 #### [facility] [address] [place] [address], [place] BASIC METABOLIC PANELon 02-2 Calcium [Mass/Vol] 9.2 mg/dL Normal 8.6-10.3 [facility] Comment on above: Order Comment: No: D o not add to previous draw Performed By: #### 0 0071 #### [facility] [address] [place] [address], [place] Chloride [Moles/Vol] 106 mmol/L Normal 98-107 [facility] Comment on above: Order Comment: No: D o not add to previous draw Performed By: #### 0 0071 #### [facility] [address] [place] [address], [place] CO2 [Moles/Vol] 27 mmol/L Normal 21-31 [facility] Comment on above: Order Comment: No: D o not add to previous draw Performed By: #### 0 0071 #### [facility] [address] [place] [address], [place] Creatinine [Mass/Vol] 0.84 mg/dL Normal 0.70-1.30 [facility] Comment on above: Order Comment: No: D o not add to previous draw Performed By: #### 0 0071 #### [facility] [address] [place] [address], [place] GFR/1.73 sq M predicted among blacks MDRD (S/P/Bld) [Vol rate/Area] mL/min/{1.73_m2} Normal >60 [facility] Comment on above: Order Comment: No: D o not add to previous draw Performed By: #### 0 0071 #### [facility] [address] [place] [address], [place] GFR/1.73 sq M predicted among non-blacks MDRD (S/P/Bld) [Vol rate/Area] mL/min/{1.73_m2} Normal >60 [facility] Comment on above: Order Comment: No: D o not add to previous draw Performed By: #### 0 0071 #### [facility] [address] [place] [address], [place] Glucose [Mass/Vol] 101 mg/dL High 70-100 [facility] Comment on above: Order Comment: No: D o not add to previous draw Performed By: #### 0 0071 #### [facility] [address] [place] [address], [place] Potassium [Moles/Vol] 3.8 mmol/L Normal 3.5-5.1 [facility] Comment on above: Order Comment: No: D o not add to previous draw Performed By: #### 0 0071 #### [facility] [address] [place] [address], [place] Sodium [Moles/Vol] 139 mmol/L Normal 136-145 [facility] Comment on above: Order Comment: No: D o not add to previous draw Performed By: #### 0 0071 #### [facility] [address] [place] [address], [place] Urea nitrogen [Mass/Vol] 15 mg/dL Normal 7-25 [facility] Comment on above: Order Comment: No: D o not add to previous draw Performed By: #### 0 0071 #### [facility] [address] [place] [address], [facility] CBC COMPLETE BLOOD COUNTon 0 10-11-2020 Erythrocyte distribution width (RBC) [Ratio] 12.9 % Normal 11.5-15.0 [facility] Comment on above: Order Comment: No: D o not add to previous draw Performed By: #### 3 5200 #### [facility] [address] [place] [address], [facility] Hematocrit (Bld) [Volume fraction] 38.6 % Low 39.0-50.0 [facility] Comment on above: Order Comment: No: D o not add to previous draw Performed By: #### 3 5200 #### [facility] [address] [place] [address], [facility] Hemoglobin (Bld) [Mass/Vol] 12.3 g/dL Low 13.0-17.0 [facility] Comment on above: Order Comment: No: D o not add to previous draw Performed By: #### 3 5200 #### [facility] [address] [place] [address], [facility] MCH (RBC) [Entitic mass] 28.5 pg Normal 27.0-33.0 [facility] Comment on above: Order Comment: No: D o not add to previous draw Performed By: #### 3 5200 #### [facility] [address] [place] [address], [facility] MCHC (RBC) [Mass/Vol] 31.9 g/dL Low 32.0-35.0 [facility] Comment on above: Order Comment: No: D o not add to previous draw Performed By: #### 3 5200 #### [facility] [address] [place] [address], [facility] MCV (RBC) [Entitic vol] 89.6 fL Normal 82.0-98.0 [facility] Comment on above: Order Comment: No: D o not add to previous draw Performed By: #### 3 5200 #### [facility] [address] [place] [address], [facility] Nucleated RBC/100 WBC (Bld) [Ratio] 0 % Normal 0-0 [facility] Comment on above: Order Comment: No: D o not add to previous draw Performed By: #### 3 5200 #### [facility] [address] [facility] [place] [address], [facility] PLAT CNT 279 10*3/uL Normal 150-400 [facility] Comment on above: Order Comment: No: D o not add to previous draw Performed By: #### 3 5200 #### [facility] [address] [facility] [place] [place] [address], [facility] RBC (Bld) [#/Vol] 4.31 10*6/uL Normal 4.20-5.70 The [facility] Comment on above: Order Comment: No: D o not add to previous draw Performed By: #### 3 5200 #### [facility] [address] [facility] [place] [place] [address], [facility] WBC (Bld) [#/Vol] 10.25 10*3/uL Normal 4.00-10.60 [facility] Comment on above: Order Comment: No: D o not add to previous draw Performed By: #### 3 5200 #### [facility] [address] [place] [address], [facility] CTA HEART-CORONARY/ ARTERY B YPASS GRAFT WITH 3DPPon 10-11-2020 CTA HEART-CORONARY/ ARTERY BYPASS GRAFT WITH 3DPP [facility] Department of Radiology [address] [place] [phone] Patient Name: KARLA MCCOLLUM : 1950 Sex: M Age: Race: White Pt. Location: [address] [place] [address] Patient Status: I Ordered Date: 10/11/2020 8:30:00 [...] otherwise. Electronically signed: Asa Hill. Transcribed by: [email or web address], User Resident: ASA HILL Electronically Signed by: ASA HILL @ 10/11/2020 04:34 PM I personally read this/these film(s) with this resident Normal [facility] Comment on above: Order Comment: Other , LAD arising from right coronary cusp Cardiovascular Lab Reporton 10-11-2020 Cardiovascular Lab Report [facility] Patient Name: Karla Mccollum [facility] Celestine MR #: [id number] Department of Physician: Neli Stern M.D. Division of Service Date: 10/10/2020 Cardiology Birthdate: 1950 Adult Cardiovascular Room #: 3AB 889176 [facility] [address] [place] [address] Cardiovascular Laboratory Report INDICATION: The patient is [...] consent. He was brought to cath lab manager in a fasting state. The right wrist area was prepped and draped in usual fashion. Modified Satnam's test was favorable on the right. Access in the right radial artery was obtained using micropuncture technique. A 6-Andorran x 11 cm Hydrophilic sheath was advanced, [...] adequate location, this was upsized to a 6-Andorran x 11 cm sheath. Bilateral selective coronary angiography was then performed using 6-Andorran JL3.5 and JR4 diagnostic catheters. The 6-Andorran JR4 diagnostic catheter was then used to [...] P/Neli Stern M.D. Date Trans: 10/11/2020 06:09 A/lucia [id number] cc: Hoa Tran M.D. [place] [id number] [facility] [place] [phone] Neli Stern M.D. Heart Failure/ Transplant Mailstop [address] [facility] [address] Normal [facility] BASIC METABOLIC PANELon 02- Calcium [Mass/Vol] 9.0 mg/dL Normal 8.6-10.3 [facility] Comment on above: Order Comment: No: D o not add to previous draw Performed By: #### 0 0071, 67836 #### [facility] [address] [place] [address], [place] Chloride [Moles/Vol] 103 mmol/L Normal 98-107 [facility] Comment on above: Order Comment: No: D o not add to previous draw Performed By: #### 0 0071, 34394 #### [facility] [address] [place] [address], [place] CO2 [Moles/Vol] 25 mmol/L Normal 21-31 [facility] Comment on above: Order Comment: No: D o not add to previous draw Performed By: #### 0 0071, [address] #### [facility] [address] [place] [address], [place] Creatinine [Mass/Vol] 0.87 mg/dL Normal 0.70-1.30 [facility] Comment on above: Order Comment: No: D o not add to previous draw Performed By: #### 0 0071, [address] #### [facility] [address] [place] [address], [place] GFR/1.73 sq M predicted among blacks MDRD (S/P/Bld) [Vol rate/Area] mL/min/{1.73_m2} Normal >60 [facility] Comment on above: Order Comment: No: D o not add to previous draw Performed By: #### 0 007, 19274 #### [facility] [address] [place] [address], [facility] GFR/1.73 sq M predicted among non-blacks MDRD (S/P/Bld) [Vol rate/Area] mL/min/{1.73_m2} Normal >60 [facility] Comment on above: Order Comment: No: D o not add to previous draw Performed By: #### 0 0071, 07743 #### [facility] [address] [place] [address], [facility] Glucose [Mass/Vol] 109 mg/dL High 70-100 [facility] Comment on above: Order Comment: No: D o not add to previous draw Performed By: #### 0 0071, 79383 #### [facility] [address] [place] [address], [facility] Potassium [Moles/Vol] 3.5 mmol/L Normal 3.5-5.1 [facility] Comment on above: Order Comment: No: D o not add to previous draw Performed By: #### 0 70, 00007 #### [facility] [address] [place] [address], [facility] Sodium [Moles/Vol] 137 mmol/L Normal 136-145 [facility] Comment on above: Order Comment: No: D o not add to previous draw Performed By: #### 0 0071, 52311 #### [facility] [address] [place] [address], [facility] Urea nitrogen [Mass/Vol] 14 mg/dL Normal 7-25 [facility] Comment on above: Order Comment: No: D o not add to previous draw Performed By: #### 0 0071, 35192 #### [facility] [address] [place] [address], [place] CBC COMPLETE BLOOD COUNTon 0 --2020 Erythrocyte distribution width (RBC) [Ratio] 13.2 % Normal 11.5-15.0 [facility] Comment on above: Order Comment: No: D o not add to previous draw Performed By: #### 3 5200 #### [facility] [address] [place] [address], [facility] Hematocrit (Bld) [Volume fraction] 38.2 % Low 39.0-50.0 [facility] Comment on above: Order Comment: No: D o not add to previous draw Performed By: #### 3 5200 #### [facility] [address] [place] [address], [facility] Hemoglobin (Bld) [Mass/Vol] 12.2 g/dL Low 13.0-17.0 [facility] Comment on above: Order Comment: No: D o not add to previous draw Performed By: #### 3 5200 #### [facility] [address] [place] [address], [facility] MCH (RBC) [Entitic mass] 28.6 pg Normal 27.0-33.0 [facility] Comment on above: Order Comment: No: D o not add to previous draw Performed By: #### 3 5200 #### [facility] [address] [facility] [place] [address], [facility] MCHC (RBC) [Mass/Vol] 31.9 g/dL Low 32.0-35.0 [facility] Comment on above: Order Comment: No: D o not add to previous draw Performed By: #### 3 5200 #### [facility] [address] [place] [address], [facility] MCV (RBC) [Entitic vol] 89.5 fL Normal 82.0-98.0 [facility] Comment on above: Order Comment: No: D o not add to previous draw Performed By: #### 3 5200 #### [facility] [address] [place] [address], [facility] Nucleated RBC/100 WBC (Bld) [Ratio] 0 % Normal 0-0 [facility] Comment on above: Order Comment: No: D o not add to previous draw Performed By: #### 3 5200 #### [facility] [address] [place] [address], [place] PLAT CNT 253 10*3/uL Normal 150-400 [facility] Comment on above: Order Comment: No: D o not add to previous draw Performed By: #### 3 5200 #### [facility] [address] [place] [address], [place] RBC (Bld) [#/Vol] 4.27 10*6/uL Normal 4.20-5.70 [facility] Comment on above: Order Comment: No: D o not add to previous draw Performed By: #### 3 5200 #### [facility] [address] [place] [address], [place] WBC (Bld) [#/Vol] 10.57 10*3/uL Normal 4.00-10.60 [facility] Comment on above: Order Comment: No: D o not add to previous draw Performed By: #### 3 5200 #### [facility] [address] [place] [address], [facility] HEMOGLOBIN A1Con 10-10-2020 HbA1c (Bld) [Mass fraction] 6.0 % Normal 4.0-6.0 [facility] Comment on above: Order Comment: No: D o not add to previous draw Performed By: #### 3 179 #### [facility] [address] [place] [address], [facility] HbA1c (Bld) [Mass fraction] 126 mmol/L Normal [facility] Comment on above: Order Comment: No: D o not add to previous draw Performed By: #### 3 1791 #### [facility] [address] [place] [address], [place] LIPID PROFILEon 10-10-2020 Cholesterol [Mass/Vol] 144 mg/dL Normal 120-200 [facility] Comment on above: Order Comment: No: D o not add to previous draw Result Comment: CHOL ESTEROL REFERENCE RANGE: 20 YEARS AND OLDER CARDIOVASCULAR RISK Less than 200 mg/dl Low Risk 200 to 239 mg/dl Borderline Risk 240 mg/dl and greater High Risk Performed By: #### 0 007, 77083 #### [facility] [address] [place] [address], [place] Cholesterol in HDL [Mass/Vol] 30 mg/dL Normal 23-92 [facility] Comment on above: Order Comment: No: D o not add to previous draw Result Comment: Slig ht variation in normal range could be due to gender and/or age. HDL CHOLESTEROL REFERENCE RANGE: 20 years and older Cardiovascular Risk > or =60 mg/dL Desirable 40 TO 59 mg/dL Low Risk <40 mg/dL High Risk Performed By: #### 0 007, 99718 #### [facility] [address] [place] [address], [facility] Cholesterol in LDL [Mass/Vol] 73 mg/dL Normal 0-130 [facility] Comment on above: Order Comment: No: D o not add to previous draw Result Comment: LDL IS A CALCULATION LDL IS ONLY VALID IF THE TRIG IS LESS THAN 400. Performed By: #### 0 70, 08448 #### [facility] [address] [place] [address], [place] Cholesterol.total/C holesterol in HDL [Mass ratio] 4.8 {ratio} High 0.0-4.5 [facility] Comment on above: Order Comment: No: D o not add to previous draw Performed By: #### 0 007, 33641 #### [facility] [address] [place] [address], [place] NON-HDL CHOLESTEROL 114 mg/dL Normal [facility] Comment on above: Order Comment: No: D o not add to previous draw Performed By: #### 0 007, 09441 #### [facility] [address] [place] [address], [place] Triglyceride [Mass/Vol] 203 mg/dL High 40-149 [facility] Comment on above: Order Comment: No: D o not add to previous draw Result Comment: TRIG LYCERIDE REFERENCE RANGE: 20 YEARS AND OLDER CARDIOVASCULAR RISK LESS THAN 150 mg/dl LOW RISK 150 TO 199 mg/dl BORDERLINE RISK 200 mg/dl AND GREATER HIGH RISK Performed By: #### 0 0071, 24994 #### [facility] [address] [employer] VLDL CHOL 41 mg/dL High 0-40 [facility] Comment on above: Order Comment: No: D o not add to previous draw Performed By: #### 0 0071, 24281 #### [facility] [address] PROTHROMBIN TIMEon 1 INR Coag (PPP) [Relative time] 1.00 {INR} Normal 0.91-1.16 [facility] Comment on above: Order [...] By: #### 5 6101 #### [facility] [address] PT Coag (PPP) [Time] 13.2 s Normal 12.3-14.8 [facility] Comment on above: Order Comment: No: D o not add to previous draw Result Comment: ALL RESULTS MUST BE INTERPRETED WITH RESPECT TO BLOOD DRAWING ARTIFACT OR DILUTION ERROR OF ANTICOAGULANT AT THE TIME OF SAMPLING. Performed By: #### 5 6101 #### [facility] [address] BNP (B-TYPE NATRIURETIC PEPT FELISA)on 10-09-2020 Natriuretic peptide B (Bld) [Mass/Vol] 32 pg/mL Normal 0-100 [facility] Comment on above: Order Comment: No: D o not add to previous draw Result Comment: Give n the appropriate clinical setting a BNP result of >100 pg/mL indicates congestive heart failure. Performed By: #### 8 5123 #### [address] TROPONIN-Ion 10-09-2020 Troponin I.cardiac [Mass/Vol] 0.00 ng/mL Normal 0.00-0.04 [facility] Comment on above: Order Comment: No: D o not add to previous draw Result Comment: REFE RENCE RANGES: 0.00 - 0.14 ng/ml NEGATIVE 0.15 - 0.25 ng/ml INDETERMINATE > 0.25 ng/ml INDICATIVE OF AN M.I. Performed By: #### 3 5200 #### [address] Provider Letter FTMCon 09-20 Provider Letter [facility] Hoa Tran, [address] [facility]3] [address] [place] [address] Re: KARLA MCCOLLUM Date of : 1950 Thank you for your referral of Karla Mccollum who was seen on consultation on Sep 17, 2020, for three skin lesions of concern. I have enclosed my consultation note for your review, and I will be happy to follow Karla should he need further treatment. Sincerely, Karla Dye MD General Surgery [facility] Facesheeton 09-18-2020 Facesheet [id number] .[id number]:[address] [facility] Ambulatory Clinical Summaryo n 09-17-2020 Ambulatory Clinical Summary {[id number]}CD:[id number] Normal [facility] General Surgery Office/Clini c Noteon 09-17-2020 General [...] Primary malignant neoplasm of lung: Father. Normal [facility] Comment on above: Result Comment: Elec tronically Signed By: SHEY WARD, Karla Leos\Date and Time Signed: 09/17/20 16:29 EST Physician Referralon 021 Physician Referral [id number] .[id number]:[address] [facility] Encounters Encounter Date Encounter Type Care Provider Facility Start: 05-15-2024 End: 05-15-2024 ambulatory Hoa Tran [facility] Work Phone: Start: 05-15-2024 End: 05-15-2024 Departed Referred MD Hoa Tran Work Phone: [facility] Start: 12-22-2023 End: 12-22-2023 ambulatory NELI STERN [facility] Start: 12-15-2023 End: 12-15-2023 ambulatory Bismark Redd Facility:[facility] Start: 12-02-2023 End: 12-02-2023 ambulatory KAMRAN GUILLEN Not Available Start: 06-18-2023 End: 06-18-2023 [facility] Start: 11-24-2022 End: 11-25-[address] NELI STERN Facility:[facility] Start: 09-02-2022 End: 09-02-[address] HOA TRAN . Facility:[facility] Start: 12-17-2021 End: 12-18-[address] HOA TRAN . Facility:[facility] Start: 10-09-2020 End: 10-12-2020 Evaluation and management of inpatient HOA TRAN Facility:[facility] Procedures Date Procedure Procedure Detail Performing Clinician Start: 10-10-2020 INTRODUCE OTH THERAP SUBST IN CORONARY ART, PERC NELI Ignacio MOUKARBEL Start: 10-10-2020 PLAIN RADIOGRAPHY OF MULT COR ART USING L OSM CONTRAST NELI V MOUKARBEL Start: 10-10-2020 PLAIN RADIOGRAPHY OF R LOW EXTREM ART USING L OSM CONTRAST NELI V MOUKARBEL Payers Date Payer Category Payer Self-pay 2023 Medicare [id number] 1958 Medicare [id number] 1958 Unknown [id number] 1950 Unknown [id number] 2.16.8 [id number] 1950 Unknown [id number] 2.16.84 [id number] 1950 Unknown [id number] 2.16.84 [id number] 1950 Unknown [id number] 2.16.84 [id number] 1950 Unknown [id number] 2.16.84 [id number] Unknown [employer] BC/BS [id number] Unknown Insurance No Card [id number] 2.16.8 [id number] Unknown [id number] 2.16.8 [id number] Social History Date Type Detail Facility Start: 07-14-2021 Tobacco smoking stat us NHIS Never smoked tobacco (finding) [facility] Start: 1950 Sex Assigned At Male F [facility] Progress note 12-22-2023 Note Date & Type Note Facility 12-22-2023 Note [facility] Subjective Karla Mccollum is a [...] mg daily. He was admitted to the [facility] on 05/06/2023 with chest pain and [...] Disp: 90 tablet, (more content not included)... [facility] Progress note 06-18-2023 Note Date & Type Note Facility 06-18-2023 Note [facility] Subjective Karla Mccollum is a 73 y.o. year old male patient being seen for 6 mo follow up CAD, coronary artery spasm, hypertension, and hyperlipidemia. He was recently admitted to [facility] for chest pain in Apr 2023. Ranexa was increased to 1,000mg bid and metoprolol was increased to 100mg daily. He has not been taking low dose aspirin. He's had to take nitroglycerin once for chest pain since hospital stay. Continues to have MLIES and LLE edema. Denies palpitations and lightheadedness. [...] Use Topics Alcohol use: Yes Comment: garcia Taylor is seen in follow-up. He is a [...] mg daily. He was admitted to the [facility] on 05/06/2023 with chest pain and [...] Current Outpatient Medications (more content not included)... [facility] Clinical Note 12-17-2021 Note Date & [...] and reported in a separate dictation. The [facility] Evaluation note Note Date & Type Note Facility Evaluation note No assessment information availa [facility] Work Phone: Summary Purpose Family History No Family History Records Found Relationship Condition Age at Onset Recorded Date/T enma father Family history of lung cancer Unknown Unknown Malignant neoplasm Unknown mother Hypertension Unknown Advance Directives No Advanced Directives Records FoundNo Advanced Directives Records FoundNo Advanced Directives Records FoundNo Advanced Directives Records FoundNo Advanced Directives Records FoundNo Advanced Directives Records Found Hospital Course Note MR#: [id number] [facility] Pt. Name: Karla Mccollum Admitted: 10/09/2020 Discharged: [...] section and content) DATE CREATED AUTHOR 09/22/2020 [facility] DATE CREATED AUTHOR AUTHOR'S ORGANIZ ATION 10/15/2020 [facility] DATE CREATED AUTHOR AUTHOR'S ORGANIZ ATION 11/30/[address] DATE CREATED AUTHOR AUTHOR'S ORGANIZ ATION 12/03/2023 [facility] EPIC DATE CREATED AUTHOR AUTHOR'S ORGANIZ ATION 12/24/2023 [facility] DATE CREATED AUTHOR AUTHOR'S ORGANIZ ATION 05/20/2024 [facility] Care Teams (unrecognized sec tion and content) Team Status: Inactive Member Role Status Dates Hoa Tran MD Attending Provider Active Sta rt: May 15, 2024 End: May 15, 2024 Goals (unrecognized section and content) Goals may be documented in a n alternate section FOR RECORDS PERTAINING TO PATIENTS WHO ARE [...] BE BASED ON THE PRIMARY CLINICAL RECORDS. [employer] provides no warranty or guarantee of the accuracy or completeness of information in this document.
== END 2024-05-23 20:48 | disposition home or self-care (01) ==
LOC: SLEEP 20:47
PROVIDERS: PCP Family Medicine; Visit Provider Family Medicine
DX: G47.33 Obstructive sleep apnea (adult) (pediatric) (principal)
CPT/HCPCS: 95811

== ENCOUNTER 2024-07-29 12:48 | Emergency (ER) | payer MEDICARE, SELFPAY ==
--- OUTSIDE RECORDS SUMMARY | 2024-07-29 12:55 | XMS_ITS | CCD ---
Author Organization [facility] Care Team Providers Care Internal Sales Name Role Phone HOA TRAN Primary Care Unavailable UNKNOWN, PROVIDER Referring Unavailable GRISELDA, HANI Admitting Unavailable GRISELDA HANI Attending Unavailable CT Procedure Practitioner Unavailab le UNKNOWN, PROVIDER Surgeon Unavailable SNEHAL ., DR CAMARA Primary Care Unavailable DIAB ., KWADWO Admitting Unavailable DIAB ., KWADWO Attending Unavailable Bismark Redd Consulting Unavailable DIAB ., KWADWO Consulting Unavailable ADALIUKAKELLY, DR QUINTEROS Admitting Unavailable MORAIN, DR QUINTEROS Attending Unavailable SNEHAL ., DR CAMARA Primary Care Unavailable MORAIN, DR QUINTEROS Consulting Unavailable SNEHAL ., DR CAMARA Admitting Unavailable SNEHAL ., DR CAMARA Attending Unavailable SNEHAL ., DR CAMARA Primary Care Unavailable SNEHAL ., DR CAMARA Consulting Unavailable Bismark Redd Consulting Unavailable NELI STERN Attending Unavailable NELI STERN Attending Unavailable MD Hoa Tran Attending Provider [phone] Hoa Tran Attending Unavailable Hoa Tran Admitting Unavailable Bismark Redd V Attending Unavailable Bismark Redd V Admitting Unavailable JACQUI GUILLEN Attending Unavailable SADAF MALHOTRA Attending Unavailable HOA TRAN Referring Unavailable Hoa Tran MD Primary Care Provider [phone] Medications Current Medications Medication Drug Class(es) Dates Sig (Normalized) Sig (Original) amLODIPine 10 mg oral tablet (3 sources) Dihydropyridine Calcium Channel Mario take 1 tablet by mouth once daily amLODIPine (Norvasc) 10 MG tablet Take 10 mg by mouth Daily Active aspirin 81 mg delayed release oral tablet (3 sources) Platelet Aggregation Inhibitor, Nonsteroidal Anti-inflammatory Drug aspirin 81 MG EC tablet Daily Active atorvastatin 40 mg oral tablet (3 sources) HMG-CoA Reductase Inhibitor take 1 tablet by mouth in the morning atorvastatin (Lipitor) 40 MG tablet Take 40 mg by mouth in the morning. Active ciclopirox 7.7 mg/ml topical cream (3 sources) Start: 12-02-2023 End: 05-30-2024 ciclopirox (Loprox) 0.77 % cream Indications: Other seborrheic dermatitis Apply thin layer to affected area once a day, 30 day supply 30 g 12/02/2023 05/30/2024 Discontinued (Therapy completed) ezetimibe 10 mg oral tablet (3 sources) Dietary Cholesterol Absorption Inhibitor Start: 08-17-2023 take 1 tablet by mouth once daily in the morning ezetimibe (Zetia) 10 MG tablet take 1 tablet by mouth every morning Oral for 90 Days 08/17/2023 Active fenofibrate 145 mg oral tablet (3 sources) Peroxisome Proliferator Receptor alpha Agonist take 1 tablet by mouth once daily fenofibrate (Tricor) 145 MG tablet Take 145 mg by mouth Daily Active hydrocortisone 10 mg/ml / neomycin 3.5 mg/ml / polymyxin b [id number] unt/ml otic suspension (3 sources) Aminoglycoside Antibacterial, Polymyxin-class Antibacterial, Corticosteroid Start: 07-01-2023 neomycin-polymyxin -hydrocortisone (Cortisporin) 3.5-27759-0 otic suspension every 8 (eight) hours 07/01/2023 Active irbesartan 150 mg oral tablet (3 sources) Angiotensin 2 Receptor Mario take 1 tablet by mouth once daily irbesartan (Avapro) 150 MG tablet Take 150 mg by mouth Daily Active 24 hr isosorbide mononitrate 120 mg extended release oral tablet (3 sources) Nitrate Vasodilator Start: 08-17-2023 isosorbide mononitrate ER (Imdur) 120 MG 24 hr tablet Take 120 mg by mouth 08/17/2023 Active 24 hr metoprolol succinate 100 mg extended release oral tablet (3 sources) beta-Adrenergic Mario take 1 tablet by mouth once daily metoprolol succinate XL (Toprol-XL) 100 MG 24 hr tablet Take 100 mg by mouth Daily Active omeprazole 40 mg delayed release oral capsule (3 sources) Proton Pump Inhibitor take 1 capsule by mouth once daily omeprazole (PriLOSEC) [address] capsule take 1 capsule by mouth once daily for 90 Active oxaprozin 600 mg oral tablet (3 sources) Nonsteroidal Anti-inflammatory Drug End: 05-30-2024 take 1 tablet by mouth every twenty-four hours as needed oxaprozin (Daypro) 600 MG tablet 600 mg Daily as needed 05/30/2024 Discontinued 12 hr ranolazine 1000 mg extended release oral tablet (3 sources) Anti-anginal take 1 tablet by mouth every twelve hours in the morning ranolazine (Ranexa) 1000 MG 12 hr tablet Take 1 tablet by mouth in the morning and 1 tablet before bedtime. 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, unspecified, with tophus (tophi)] Onset: 05-30-2024 05-30-2024 Chronic Nonspecific chest pain (4 sources) Chest pain, unspecified; Translations: [Other chest pain] Onset: 09-02-2022 Episodic Other aftercare (1 source) 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; 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] Onset: 09-03-2022 Episodic Other aftercare (1 source) Other senior living (current) drug therapy; Translations: [OTH PRISON CURRENT DRUG THERAPY] Onset: 09-03-2022 Episodic Other skin disorders (4 sources) Mass of neck; Translations: [Localized swelling, mass and lump, neck] Onset: 05-30-2024 05-30-2024 Episodic Residual codes; unclassified (1 source) Sleep apnea, unspecified; Translations: [SLEEP APNEA UNSPECIFIED] Onset: 09-03-2022 Chronic Residual codes; unclassified (1 source) Acquired absence of other specified parts of digestive tract; Translations: [ACQ ABSENCE OTH PART DIGESTV TRACT] Onset: 09-03-2022 Episodic Thyroid disorders (4 sources) Non-toxic multinodular goiter; Translations: [Nontoxic multinodular goiter] Onset: 05-30-2024 05-30-2024 Chronic Unclassified (1 source) CONTACT W/AND (SUSP) EXPOS COVID-19; Translations: [CONTACT W/AND (SUSP) EXPOS COVID-19] Onset: 09-03-2022 Past or Other Problems Problem Classification Problem Date Documented Da te Episodic/Chronic Other lower respiratory disease (4 sources) Dyspnea, unspecified; Translations: [DYSPNEA UNSPECIFIED] Onset: 12-17-2021 Episodic Results Test Name Value Interpretation Reference Range Facility [facility] 05-15-2024 L Specimen: [id number] Received: 05/17/24 Status: SOUT Req Num: [id number] Spec Type: Cytology Subm Dr: Hoa Tran MD Tissues: A FNA SLIDES NOPATH (RT THY) B FNA SLIDES NOPATH (LT THY) Procedures: Cyto Int and Re/2, PAPSTN/10 Age/ Patient Sex Location Account Attending Physician Karla Mccollum/M [facility] [id number] Hoa Tran MD SPEC NUM: [id number] RECD: 05/17/24 STATUS: SOUYamilex REQ NUM: [id number] SEAN: 05/15/24 DR: Hoa Tran MD ENTERED: 05/17/[address]: Elisha Pearson MD SPEC TYPE: Cytology DEPT: GREG LARADHA ENTERED BY: [id number] RECV BY: [id number] ORDERED: Cyto Int and Re/2, PAPSTN/10 ORDERED: Cyto Int and Re/2, PAPSTN/10 Pathological Diagnosis A. Right thyroid, inferior nodule, fine needle aspiration: - Unsatisfactory for evaluation due to scant cellularity. - Scant watery colloid, non-diagnostic ([place] Category:I). B. Left thyroid, inferior nodule, fine needle aspiration: - Unsatisfactory for evaluation due to scant cellularity. - Scant watery colloid and blood, non-diagnostic ([place] Category:I). Comment: Recommend repeat thyroid FNA as clinically indicated. Clinical Information Bilateral thyroid nodules Gross Description A. (RT) Received fixed in Cytolyt is <1 ml colorless clear fluid for cytology and labeled as right thyroid nodule inferior. ThinPrep preparations are prepared for microscopic examination. Also received are 4 spray fixed smeared slides for pap and a Veracyte vial stored at -20 microscopic examination. (/ne) -------- Specimen: [id number] Received: 05/17/24 Status: EDWINA Spears Num: [id number] Spec Type: Cytology Subm Dr: Hoa Tran MD Tissues: A FNA SLIDES NOPATH (RT THY) B FNA SLIDES NOPATH (LT THY) Procedures: Cyto Int and Re/2, PAPSTN/10 -------- Patient: Karla Mccollum [id number] (Continued) -------- Specimen: [id number] Received: 05/17/24 (Continued) Gross Description (Continued) Signed (signature on file) Rajesh Ridley MD 05/18/24 1609 -------- Specimen: [id number] Received: 05/17/24 Status: EDWINA Spears Num: [id number] Spec Type: Cytology Subm Dr: Hoa Tran MD Tissues: A FNA SLIDES NOPATH (RT THY) B FNA SLIDES NOPATH (LT THY) Procedures: Cyto Int and Re/2, PAPSTN/10 -------- Patient: Karla Mccollum [id number] (Continued) -------- Specimen: [id number] Received: 05/17/24 (Continued) Gross Description (Continued) B. (LT) Received fixed in Cytolyt is <1 ml colorless clear fluid for cytology and labeled as left thyroid nodule inferior. ThinPrep preparations are prepared for microscopic examination. Also received are 4 spray fixed smeared slides for pap and a Veracyte vial stored at -20 for microscopic examination. (/ne) Microscopic Description A B: Microscopic examination is performed. CPT Codes 99651 x2, 78256 x2 -------- -------- Specimen: [id number] Received: 05/17/24 Status: EDWINA Spears Num: [id number] Spec Type: Cytology Subm Dr: Hoa Tran MD Tissues: A FNA SLIDES JAIMEATH (RT THY) B FNA SLIDES NOPATH (LT THY) Procedures: Cyto Int and Re/2, PAPSTN/10 -------- Patient: Karla Mccollum [id number] (Continued) -------- Signed (signature on file) Rajesh Ridley MD 05/18/24 1609 Normal [facility] Office [facility] 12-22-2023 Follow-up visit [id number] Karla Mccollum 1950 M Date Provider Department Center 12/22/2023 367-NELI STERN [facility] Lili Antony Family History Problem Relation Age of Onset Hypertension Mother Family Status - Relation Status Age at Mother Level of Service:35569 CT OFFICE/OUTPATIENT ESTABLISHED LOW MDM 20 MIN Normal [facility] Rudolph 12-15-2023 L Specimen: Received: 12/16/23 Status: EDWINA Spears Num: [id number] Spec Type: Cytology Subm Dr: Bismark Redd MD Tissues: A FNA SLIDES NOPATH (LT SUBMENT MASS) Procedures: HE/2, Cyto Int and Re, PAPSTN/7 Age/ Patient Sex Location Account Attending Physician Karla Mccollum 73/M [facility] [id number] Bismark Redd MD SPEC NUM: [id number] RECD: 12/16/23 STATUS: TASHYamilex SPEARS NUM: [id number] SEAN: 12/15/23- SUBM DR: Bismark Redd MD ENTERED: 12/16/23 [facility] DR: Elisha Pearson MD SPEC TYPE: Cytology DEPT: [facility] ENTERED BY: [id number] RECV BY: [id number] ORDERED: HE/2, Cyto Int and Re, PAPSTN/7 [...] to be stained pap are additionally received. (CC/ne) CPT Codes 59353 -------- -------- Specimen: [id number] Received: 12/16/23-1403 Status: EDWINA Spears Num: [id number] Spec Type: Cytology Subm Dr: Bismark Redd MD Tissues: A FNA SLIDES NOPATH ( SUBMENT MASS) Procedures: HE/2, Cyto Int and Re, PAPSTN/7 -------- Patient: Karla Mccollum [id number] (Continued) -------- Signed (signature on file) Bismark Quiñonez MD 12/17/23 1054 Normal [facility] 06-18-2023 Follow-up visit [id number] Karla Mccollum 1950 M Date Provider Department [place] 06/18/2023 NELI THRASHER [facility] Family History Problem Relation Age of Onset Hypertension Mother Family Status - Relation Status Age at Mother Level of Service:45683 CT OFFICE/OUTPATIENT ESTABLISHED MOD MDM 30-39 MIN Normal [facility] LIPID PROFILEon 11-24-2022 CHOL-HDL RATIO NORM SEE BELOW Normal [facility] Comment on above: Result Comment: 3.3 - 4.4 LOW RISK 4.4 - 7.1 AVERAGE RISK 7.1 - 11.0 MODERATE RISK >11.0 HIGH RISK Performed By: #### L IPID #### [facility] [address] [address] [address] Paige Tee Cholesterol [Mass/Vol] 151 mg/dL Normal <=200 [facility] Comment on above: Performed By: #### L IPID #### [facility] [address] [address] [address] Paige Tee Cholesterol in HDL [Mass/Vol] 40 mg/dL Normal 40-60 [facility] Comment on above: Performed By: #### L IPID #### [facility] [address] [address] [address] Paige Tee Cholesterol in LDL [Mass/Vol] 87.4 mg/dL Normal [facility] Comment on above: Performed By: #### L IPID #### [facility] [address] [address] [address] Paige Tee Cholesterol.total/C holesterol in HDL [Mass ratio] 3.8 {ratio} Normal [facility] Comment on above: Performed By: #### L IPID #### [facility] [address] [address] [address] Paige Tee HDL NORMAL > or = 60 mg/dl - LO W CARDIOVASCULAR RISK <40 mg/dl - HIGH CARDIOVASCULAR RISK Normal [facility] Comment on above: Performed By: #### L IPID #### [facility] [address] [address] [address] Paige Tee LDL CALC NORMAL SEE BELOW Normal [facility] Comment on above: Result Comment: <100 mg/dl OPTIMAL 100 - 129 mg/dl NEAR OR ABOVE OPTIMAL 130 - 159 mg/dl BORDERLINE HIGH 160 - 189 mg/dl HIGH >190 mg/dl VERY HIGH Performed By: #### L IPID #### [facility] [address] [place] [address] Dr. Paige Tee Triglyceride [Mass/Vol] 118 mg/dL Normal <=150 [facility] Comment on above: Performed By: #### L IPID #### [facility] [address] [place] [address] Dr. Paige Tee VLDL CALC 23.6 mg/dL Normal [facility] Comment on above: Performed By: #### L IPID #### [facility] [address] [place] [address] Dr. Paige Tee CBC AUTO DIFFon 09-02-2022 BASO # 0.1 103/ul Normal 0.0-0.1 [facility] Comment on above: Performed By: #### C BC #### [facility] [address] [place] [address] Dr. Paige Tee Basophils/100 WBC (Bld) 0.6 % Normal 0.2-2.0 [facility] Comment on above: Performed By: #### C BC #### [facility] [address] [place] [address] Dr. Paige Tee EO # 0.4 103/ul Normal 0.0-0.7 [facility] Comment on above: Performed By: #### C BC #### [facility] [address] [place] [address] Dr. Paige Tee Eosinophils/100 WBC (Bld) 4.0 % Normal 0.9-7.0 [facility] Comment on above: Performed By: #### C BC #### [facility] [address] [place] [address] Dr. Paige Tee Erythrocyte distribution width (RBC) [Ratio] 13.8 % Normal 11.0-15.0 [facility] Comment on above: Performed By: #### C BC #### [facility] [address] [address] [address] Paige Tee Hematocrit (Bld) [Volume fraction] 35.9 % Critically low 42.0-54.0 [facility] Comment on above: Performed By: #### C BC #### [facility] [address] [place] [address] Dr. Paige Tee Hemoglobin (Bld) [Mass/Vol] 11.9 g/dL Critically low 14.0-18.0 [facility] Comment on above: Performed By: #### C BC #### [facility] [address] [place] [address] Dr. Paige Tee IG # 0.04 10e3/ul Critically high 0.00-0.03 [facility] Comment on above: Performed By: #### C BC #### [facility] [address] [place] [address] Dr. Paige Tee IG % 0.4 % Normal 0.0-0.5 [facility] Comment on above: Performed By: #### C BC #### [facility] [address] [place] [address] Dr. Paige Tee LYMPH # 3.2 103/ul Normal 1.2-3.8 [facility] Comment on above: Performed By: #### C BC #### [facility] [address] [place] [address] Dr. Paige Tee Lymphocytes/100 WBC (Bld) 30.0 % Normal 20.5-60.0 [facility] Comment on above: Performed By: #### C BC #### [facility] [address] [place] [address] Dr. Paige Tee MANUAL DIFF REQ NO Normal [facility] Comment on above: Performed By: #### C BC #### [facility] [address] [place] [address] Dr. Paige Tee MCH (RBC) [Entitic mass] 27.9 pg Normal 25.9-34.0 [facility] Comment on above: Performed By: #### C BC #### [facility] [address] [address] [address] Paige Tee MCHC (RBC) [Mass/Vol] 33.1 g/dL Normal 29.9-35.2 [facility] Comment on above: Performed By: #### C BC #### [facility] [address] [address] [address] Paige Tee MCV (RBC) [Entitic vol] 84.3 fL Normal 80.0-94.0 [facility] Comment on above: Performed By: #### C BC #### [facility] [address] [place] [address] Dr. Paige Tee MONO # 0.8 103/ul Normal 0.3-0.8 [facility] Comment on above: Performed By: #### C BC #### [facility] [address] [place] [address] Dr. Paige Tee Monocytes/100 WBC (Bld) 7.5 % Normal 1.7-12.0 [facility] Comment on above: Performed By: #### C BC #### [facility] [address] [place] [address] Dr. Paige Tee NEUT # 6.2 103/ul Normal 1.4-6.5 [facility] Comment on above: Performed By: #### C BC #### [facility] [address] [place] [address] Dr. Paige Tee Neutrophils/100 WBC (Bld) 57.5 % Normal 43.0-75.0 [facility] Comment on above: Performed By: #### C BC #### [facility] [address] [place] [address] Dr. Paige Tee Platelet mean volume (Bld) [Entitic vol] 9.5 fL Normal 9.5-13.5 [facility] Comment on above: Performed By: #### C BC #### [facility] [address] [place] [address] Dr. Paige Tee PLT 314 103/ul Normal 150-450 [facility] Comment on above: Performed By: #### C BC #### [facility] [address] [address] [address] Paige Tee RBC 4.26 106/ul Critically low 4.70-6.10 [facility] Comment on above: Performed By: #### C BC #### [facility] [address] [address] [address] Paige Tee WBC 10.8 103/ul Normal 4.0-11.0 [facility] Comment on above: Performed By: #### C BC #### [facility] [address] [place] [address] Dr. Paige Tee Covid-19 PCR (CVDTBH)on 08-16 SARS-CoV-2 (COVID-19) RNA UMER+probe Ql (Unsp spec) Not detected Normal NOT DETECTED [facility] Comment on above: Result Comment: When [...] for this test is supported by the [place] of Health and Human Service's declaration that [...] used). Performed By: #### C VDTBH #### [facility] [address] [place] [address] Dr. Paige Tee PROF CHEM 8 (BAS METB)on Anion gap [Moles/Vol] 13.7 mmol/L Normal [facility] Comment on above: Performed By: #### H STROPN, BMP #### [facility] [address] [place] [address] Dr. Paige Tee Calcium [Mass/Vol] 9.1 mg/dL Normal 8.5-10.1 [facility] Comment on above: Performed By: #### H STROPN, BMP #### [facility] [address] [place] [address] Dr. Paige Tee Chloride [Moles/Vol] 104 mmol/L Normal 98-107 [facility] Comment on above: Performed By: #### H STROPN, BMP #### [facility] [address] [place] [address] Dr. Paige Tee CO2 [Moles/Vol] 24.4 mmol/L Normal 21.0-32.0 [facility] Comment on above: Performed By: #### H STROPN, BMP #### [facility] [address] [place] [address] Dr. Paige Tee Creatinine [Mass/Vol] 1.11 mg/dL Normal 0.70-1.30 [facility] Comment on above: Performed By: #### H STROPN, BMP #### [facility] [address] [place] [address] Dr. Paige Tee EGFR-AF NIGERIEN >60 Normal >=60 [facility] Comment on above: Performed By: #### H STROPN, BMP #### [facility] [address] [place] [address] Dr. Paige Tee EGFR-NON AF NIGERIEN >60 Normal >=60 [facility] Comment on above: Performed By: #### H STROPN, BMP #### [facility] [address] [place] [address] Dr. Paige Tee Glucose [Mass/Vol] 115 mg/dL Critically high 74-106 [facility] Comment on above: Performed By: #### H STROPN, BMP #### [facility] [address] [address] [address] Paige Tee Potassium [Moles/Vol] 4.1 mmol/L Normal 3.5-5.1 [facility] Comment on above: Performed By: #### H STROPN, BMP #### [facility] [address] [place] [address] Dr. Paige Tee Sodium [Moles/Vol] 138 mmol/L Normal 136-145 [facility] Comment on above: Performed By: #### H TAMMI, BMP #### [facility] [address] [place] [address] Dr. Paige Tee Urea nitrogen [Mass/Vol] 20.0 mg/dL Critically high 7.0-18.0 [facility] Comment on above: Performed By: #### H TAMMI, BMP #### [facility] [address] [place] [address] Dr. Paige Tee Urea nitrogen/Creatinine [Mass ratio] 18.0 mg/mg Normal [facility] Comment on above: Performed By: #### H TAMMI, BMP #### [facility] [address] [place] [address] Dr. Paige Tee TROPONIN, HIGH SENSITIVITYon 09-02-2022 HSTROP 4.1 pg/mL Normal 4.0-76.1 [facility] Comment on above: Result Comment: CUT- OFF POINTS HAVE BEEN ESTABLISHED BASED ON THE FOURTH UNIVERSAL DEFINITIONS OF MYOCARDIAL INFARCTION. THE UPPER REFERENCE LIMIT (URL) OF TROPONIN, DEFINED THE 99TH PERCENTILE OF cTnI DISTRIBUTION IN A REFERENCE POPULATION, HAS BEEN CONFIRMED THE DECISION THRESHOLD FOR [place] DIAGNOSIS. Performed By: #### H TAMMI #### [facility] [address] [place] [address] Dr. Paige Tee HSTROP 4.5 pg/mL Normal 4.0-76.1 [facility] Comment on above: Result Comment: CUT- OFF POINTS HAVE BEEN ESTABLISHED BASED ON THE FOURTH UNIVERSAL DEFINITIONS OF MYOCARDIAL INFARCTION. THE UPPER REFERENCE LIMIT (URL) OF TROPONIN, DEFINED THE 99TH PERCENTILE OF cTnI DISTRIBUTION IN A REFERENCE POPULATION, HAS BEEN CONFIRMED THE DECISION THRESHOLD FOR OH DIAGNOSIS. Performed By: #### H TAMMI, BMP #### [facility] [address] [place] [address] Dr. Paige Tee XR CHEST 1 Von [...] by: BISMARK REDD Date: 2022-09-02 12:29 Normal [facility] NM STRESS/REST MULTIon 12-17 NM STRESS/REST MULTI Patient: KARLA MCCOLLUM Exam Date: 12/17/2021 : 1950 Gender:M Ordering : DR HOA TRAN . Admission #: [id number] Family : Order #: [id number] CLICK HERE TO VIEW EXAM RADIOLOGY REPORT PROCEDURE: RADIONUCLIDE IMAGING STRESS/REST MULTI COMPARISON: MI STRESS/REST MULTI, 09/01/2019. MI STRESS/REST MULTI, 01/27/2016. INDICATIONS: Dyspnea, coronary artery [...] Redd MD on 12/18/2021 at 09:10 Normal [facility] BASIC METABOLIC PANELon 2 Calcium [Mass/Vol] 8.9 mg/dL Normal 8.6-10.3 [facility] Comment on above: Order Comment: No: D o not add to previous draw Performed By: #### 0 0071 #### [facility] [address] [place] [address], [place] Chloride [Moles/Vol] 105 mmol/L Normal 98-107 [facility] Comment on above: Order Comment: No: D o not add to previous draw Performed By: #### 0 0071 #### [facility] [address] [place] [address], [place] CO2 [Moles/Vol] 25 mmol/L Normal 21-31 [facility] Comment on above: Order Comment: No: D o not add to previous draw Performed By: #### 0 0071 #### [facility] [address] [place] [address], [place] Creatinine [Mass/Vol] 0.82 mg/dL Normal 0.70-1.30 [facility] Comment on above: Order Comment: No: D o not add to previous draw Performed By: #### 0 0071 #### [facility] [address] [place] [address], [place] GFR/1.73 sq M predicted among blacks MDRD (S/P/Bld) [Vol rate/Area] mL/min/{1.73_m2} Normal >60 [facility] Comment on above: Order Comment: No: D o not add to previous draw Performed By: #### 0 0071 #### [facility] [address] [place] [address], [place] GFR/1.73 sq M predicted among non-blacks MDRD (S/P/Bld) [Vol rate/Area] mL/min/{1.73_m2} Normal >60 [facility] Comment on above: Order Comment: No: D o not add to previous draw Performed By: #### 0 0071 #### [facility] [address] [place] [address], [facility] Glucose [Mass/Vol] 104 mg/dL High 70-[address] [facility] Comment on above: Order Comment: No: D o not add to previous draw Performed By: #### 0 0071 #### [facility] [address] [place] [address], [facility] Potassium [Moles/Vol] 3.6 mmol/L Normal 3.5-5.1 [facility] Comment on above: Order Comment: No: D o not add to previous draw Performed By: #### 0 0071 #### [facility] [address] [place] [id number], [facility] Sodium [Moles/Vol] 137 mmol/L Normal 136-[address] [facility] Comment on above: Order Comment: No: D o not add to previous draw Performed By: #### 0 0071 #### [facility] [address] [place] [address], [facility] Urea nitrogen [Mass/Vol] 13 mg/dL Normal 7-25 [facility] Comment on above: Order Comment: No: D o not add to previous draw Performed By: #### 0 0071 #### [facility] [address] [place] [id number], [facility] CBC COMPLETE BLOOD COUNTon 0 - Erythrocyte distribution width (RBC) [Ratio] 13.1 % Normal 11.5-15.0 [facility] Comment on above: Order Comment: No: D o not add to previous draw Performed By: #### 3 0 #### [facility] [address] [place] [address], [facility] Hematocrit (Bld) [Volume fraction] 36.6 % Low 39.0-50.0 [facility] Comment on above: Order Comment: No: D o not add to previous draw Performed By: #### 3 5200 #### [facility] [address] [place] [address], [facility] Hemoglobin (Bld) [Mass/Vol] 11.6 g/dL Low 13.0-17.0 [facility] Comment on above: Order Comment: No: D o not add to previous draw Performed By: #### 3 5200 #### [facility] [address] [place] [address], [facility] MCH (RBC) [Entitic mass] 28.1 pg Normal 27.0-33.0 [facility] Comment on above: Order Comment: No: D o not add to previous draw Performed By: #### 3 5200 #### [facility] [address] [place] [id number], [facility] MCHC (RBC) [Mass/Vol] 31.7 g/dL Low 32.0-35.0 [facility] Comment on above: Order Comment: No: D o not add to previous draw Performed By: #### 3 5200 #### [facility] [address] [place] [id number], [facility] MCV (RBC) [Entitic vol] 88.6 fL Normal 82.0-98.0 [facility] Comment on above: Order Comment: No: D o not add to previous draw Performed By: #### 3 5200 #### [facility] [address] [place] [id number], [facility] Nucleated RBC/100 WBC (Bld) [Ratio] 0 % Normal 0-0 [facility] Comment on above: Order Comment: No: D o not add to previous draw Performed By: #### 3 5200 #### [facility] [address] [place] [id number], [place] PLAT CNT 289 10*3/uL Normal 150-[address] [facility] Comment on above: Order Comment: No: D o not add to previous draw Performed By: #### 3 5200 #### [facility] [address] [place] [id number], [facility] RBC (Bld) [#/Vol] 4.13 10*6/uL Low 4.20-5.70 [facility] Comment on above: Order Comment: No: D o not add to previous draw Performed By: #### 3 5200 #### [facility] [address] [place] [address], [place] WBC (Bld) [#/Vol] 10.27 10*3/uL Normal 4.00-10.60 [facility] Comment on above: Order Comment: No: D o not add to previous draw Performed By: #### 3 5200 #### [facility] [address] [place] [address], [place] BASIC METABOLIC PANELon 09-17 Calcium [Mass/Vol] 9.2 mg/dL Normal 8.6-10.3 [facility] Comment on above: Order Comment: No: D o not add to previous draw Performed By: #### 0 0071 #### [facility] [address] [place] [address], [place] Chloride [Moles/Vol] 106 mmol/L Normal 98-107 [facility] Comment on above: Order Comment: No: D o not add to previous draw Performed By: #### 0 0071 #### [facility] [address] [place] [address], [place] CO2 [Moles/Vol] 27 mmol/L Normal 21-31 [facility] Comment on above: Order Comment: No: D o not add to previous draw Performed By: #### 0 0071 #### [facility] [address] [place] [address], [place] Creatinine [Mass/Vol] 0.84 mg/dL Normal 0.70-1.30 [facility] Comment on above: Order Comment: No: D o not add to previous draw Performed By: #### 0 0071 #### [facility] [address] [place] [address], [place] GFR/1.73 sq M predicted among blacks MDRD (S/P/Bld) [Vol rate/Area] mL/min/{1.73_m2} Normal >60 [facility] Comment on above: Order Comment: No: D o not add to previous draw Performed By: #### 0 0071 #### [facility] [address] [place] [address], [place] GFR/1.73 sq M predicted among non-blacks MDRD (S/P/Bld) [Vol rate/Area] mL/min/{1.73_m2} Normal >60 [facility] Comment on above: Order Comment: No: D o not add to previous draw Performed By: #### 0 0071 #### [facility] [address] [place] [address], [place] Glucose [Mass/Vol] 101 mg/dL High 70-100 [facility] Comment on above: Order Comment: No: D o not add to previous draw Performed By: #### 0 0071 #### [facility] [address] [place] [address], [place] Potassium [Moles/Vol] 3.8 mmol/L Normal 3.5-5.1 [facility] Comment on above: Order Comment: No: D o not add to previous draw Performed By: #### 0 0071 #### [facility] [address] [place] [address], [place] Sodium [Moles/Vol] 139 mmol/L Normal 136-[address] [facility] Comment on above: Order Comment: No: D o not add to previous draw Performed By: #### 0 0071 #### [facility] [address] [place] [address], [place] Urea nitrogen [Mass/Vol] 15 mg/dL Normal 7-25 [facility] Comment on above: Order Comment: No: D o not add to previous draw Performed By: #### 0 0071 #### [facility] [address] CBC COMPLETE BLOOD COUNTon 10-11-2020 Erythrocyte distribution width (RBC) [Ratio] 12.9 % Normal 11.5-15.0 [facility] Comment on above: Order Comment: No: D o not add to previous draw Performed By: #### 3 5200 #### [facility] [address] [place] [address], [facility] Hematocrit (Bld) [Volume fraction] 38.6 % Low 39.0-50.0 [facility] Comment on above: Order Comment: No: D o not add to previous draw Performed By: #### 3 5200 #### [facility] [address] [address], [facility] Hemoglobin (Bld) [Mass/Vol] 12.3 g/dL Low 13.0-17.0 [facility] Comment on above: Order Comment: No: D o not add to previous draw Performed By: #### 3 5200 #### [facility] [address] [place] [address], [facility] MCH (RBC) [Entitic mass] 28.5 pg Normal 27.0-33.0 [facility] Comment on above: Order Comment: No: D o not add to previous draw Performed By: #### 3 5200 #### [facility] [address] [place] [address], [facility] MCHC (RBC) [Mass/Vol] 31.9 g/dL Low 32.0-35.0 [facility] Comment on above: Order Comment: No: D o not add to previous draw Performed By: #### 3 5200 #### [facility] [address] [place] [address], [facility] MCV (RBC) [Entitic vol] 89.6 fL Normal 82.0-98.0 [facility] Comment on above: Order Comment: No: D o not add to previous draw Performed By: #### 3 5200 #### [facility] [address] [place] [address], [facility] Nucleated RBC/100 WBC (Bld) [Ratio] 0 % Normal 0-0 [facility] Comment on above: Order Comment: No: D o not add to previous draw Performed By: #### 3 5200 #### [facility] [address] [place] [address], [facility] PLAT CNT 279 10*3/uL Normal 150-[address] [facility] Comment on above: Order Comment: No: D o not add to previous draw Performed By: #### 3 5200 #### [facility] [address] [place] [address], [facility] RBC (Bld) [#/Vol] 4.31 10*6/uL Normal 4.20-5.[address] [facility] Comment on above: Order Comment: No: D o not add to previous draw Performed By: #### 3 5200 #### [facility] [address] [place] [address], [facility] WBC (Bld) [#/Vol] 10.25 10*3/uL Normal 4.00-10.60 [facility] Comment on above: Order Comment: No: D o not add to previous draw Performed By: #### 3 5200 #### [facility] [address] [facility] [place] [address], [facility] CTA HEART-CORONARY/ ARTERY B YPASS GRAFT WITH 3DPPon 10-11-2020 CTA HEART-CORONARY/ ARTERY BYPASS GRAFT WITH 3DPP [facility] Department of Radiology [address] [place] [address] Patient Name: KARLA MCCOLLUM : 1950 Sex: M Age: Race: White Pt. Location: [address] [place] [address] Patient Status: I Ordered Date: 10/11/2020 8:30:00 [...] otherwise. Electronically signed: Asa Hill. 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 Division of Service Date: 10/10/2020 Cardiology Birthdate: 1950 Adult Cardiovascular Room #: 3AB [address] [place] [address] Cardiovascular Laboratory Report INDICATION: The patient is [...] signed informed consent. He was brought to slab puller in a fasting state. The right wrist area was prepped and draped in usual fashion. Modified Satnam's test was favorable on the right. Access in the right radial artery was obtained using micropuncture technique. A 6-Albanian x 11 cm Hydrophilic sheath was advanced, [...] adequate location, this was upsized to a 6-Albanian x 11 cm sheath. Bilateral selective coronary angiography was then performed using 6-Albanian JL3.5 and JR4 diagnostic catheters. The 6-Albanian JR4 diagnostic catheter was then used to [...] P/Neli Stern M.D. Date Trans: 10/11/2020 06:09 Ester/lucia [id number] cc: Hoa Tran M.D. [address], [facility] [id number] Neli Stern M.D. Heart Failure/ Transplant Mailstop [address] [facility] [address] Normal [facility] BASIC METABOLIC PANELon 02-2 Calcium [Mass/Vol] 9.0 mg/dL Normal 8.6-10.3 [facility] Comment on above: Order Comment: No: D o not add to previous draw Performed By: #### 0 0071, [id number] #### [facility] [address] [place] [address], [place] Chloride [Moles/Vol] 103 mmol/L Normal 98-107 [facility] Comment on above: Order Comment: No: D o not add to previous draw Performed By: #### 0 0071, 114[address] #### [facility] [address] [place] [address], [place] CO2 [Moles/Vol] 25 mmol/L Normal 21-31 [facility] Comment on above: Order Comment: No: D o not add to previous draw Performed By: #### 0 0071, 964[address] #### [facility] [address] [place] [address], [place] Creatinine [Mass/Vol] 0.87 mg/dL Normal 0.70-1.30 [facility] Comment on above: Order Comment: No: D o not add to previous draw Performed By: #### 0 0071, 335[address] #### [facility] [address] [place] [address], [place] GFR/1.73 sq M predicted among blacks MDRD (S/P/Bld) [Vol rate/Area] mL/min/{1.73_m2} Normal >60 [facility] Comment on above: Order Comment: No: D o not add to previous draw Performed By: #### 0 0071, 58932 #### [facility] [address] [place] [address], [place] GFR/1.73 sq M predicted among non-blacks MDRD (S/P/Bld) [Vol rate/Area] mL/min/{1.73_m2} Normal >60 [facility] Comment on above: Order Comment: No: D o not add to previous draw Performed By: #### 0 0071, 92570 #### [facility] [address] [place] [address], [place] Glucose [Mass/Vol] 109 mg/dL High 70-[address] [facility] Comment on above: Order Comment: No: D o not add to previous draw Performed By: #### 0 0071, 34359 #### [facility] [address] [place] [address], [place] Potassium [Moles/Vol] 3.5 mmol/L Normal 3.5-5.1 [facility] Comment on above: Order Comment: No: D o not add to previous draw Performed By: #### 0 0071, 26014 #### [facility] [address] [place] [address], [place] Sodium [Moles/Vol] 137 mmol/L Normal 136-[address] [facility] Comment on above: Order Comment: No: D o not add to previous draw Performed By: #### 0 0071, 31819 #### [facility] [address] [place] [address], [place] Urea nitrogen [Mass/Vol] 14 mg/dL Normal 7-25 [facility] Comment on above: Order Comment: No: D o not add to previous draw Performed By: #### 0 0071, 44476 #### [facility] [address] [place] [address], [place] CBC COMPLETE BLOOD COUNTon 0 10-10-2020 Erythrocyte distribution width (RBC) [Ratio] 13.2 % Normal 11.5-15.0 [facility] Comment on above: Order Comment: No: D o not add to previous draw Performed By: #### 3 9080 #### [facility] [address] Hematocrit (Bld) [Volume fraction] 38.2 % Low 39.0-50.0 [facility] Comment on above: Order Comment: No: D o not add to previous draw Performed By: #### 3 5200 #### [facility] [address] [place] [id number], [facility] Hemoglobin (Bld) [Mass/Vol] 12.2 g/dL Low 13.0-17.0 [facility] Comment on above: Order Comment: No: D o not add to previous draw Performed By: #### 3 5200 #### [facility] [address] [address], [facility] MCH (RBC) [Entitic mass] 28.6 pg Normal 27.0-33.0 [facility] Comment on above: Order Comment: No: D o not add to previous draw Performed By: #### 3 5200 #### [facility] [address] [place] [address], [facility] MCHC (RBC) [Mass/Vol] 31.9 g/dL Low 32.0-35.0 [facility] Comment on above: Order Comment: No: D o not add to previous draw Performed By: #### 3 5200 #### [facility] [address] [place] [address], [facility] MCV (RBC) [Entitic vol] 89.5 fL Normal 82.0-98.0 [facility] Comment on above: Order Comment: No: D o not add to previous draw Performed By: #### 3 5200 #### [facility] [address] [facility] [place] [address], [facility] Nucleated RBC/100 WBC (Bld) [Ratio] 0 % Normal 0-0 [facility] Comment on above: Order Comment: No: D o not add to previous draw Performed By: #### 3 5200 #### [facility] [address] [place] [address], [facility] PLAT CNT 253 10*3/uL Normal 150-[address] [facility] Comment on above: Order Comment: No: D o not add to previous draw Performed By: #### 3 5200 #### [facility] [address] [place] [address], [facility] RBC (Bld) [#/Vol] 4.27 10*6/uL Normal 4.20-5.[address] [facility] Comment on above: Order Comment: No: D o not add to previous draw Performed By: #### 3 5200 #### [facility] [address] [place] [address], [facility] WBC (Bld) [#/Vol] 10.57 10*3/uL Normal 4.00-10.60 [facility] Comment on above: Order Comment: No: D o not add to previous draw Performed By: #### 3 5200 #### [facility] [address] HEMOGLOBIN A1Con 10-10-2020 HbA1c (Bld) [Mass fraction] 6.0 % Normal 4.0-6.0 [facility] Comment on above: Order Comment: No: D o not add to previous draw Performed By: #### 3 1791 #### [facility] [address] HbA1c (Bld) [Mass fraction] 126 mmol/L Normal [facility] Comment on above: Order Comment: No: D o not add to previous draw Performed By: #### 3 1791 #### [facility] [address] LIPID PROFILEon 10-10-2020 Cholesterol [Mass/Vol] 144 mg/dL Normal 120-200 [facility] Comment on above: Order Comment: No: D o not add to previous draw Result Comment: CHOL ESTEROL REFERENCE RANGE: 20 YEARS AND OLDER CARDIOVASCULAR RISK Less than 200 mg/dl Low Risk 200 to 239 mg/dl Borderline Risk 240 mg/dl and greater High Risk Performed By: #### 0 0071, 74806 #### [facility] [address] [place] [address], [facility] Cholesterol in HDL [Mass/Vol] 30 mg/dL Normal 23-92 [facility] [...] High Risk Performed By: #### 0 0071, 44483 #### [facility] [address] [place] [address], [facility] Cholesterol in LDL [Mass/Vol] 73 mg/dL Normal 0-130 [facility] Comment on above: Order Comment: No: D o not add to previous draw Result Comment: LDL IS A CALCULATION LDL IS ONLY VALID IF THE TRIG IS LESS THAN 400. Performed By: #### 0 0071, 73256 #### [facility] [address] [place] [address], [facility] Cholesterol.total/C holesterol in HDL [Mass ratio] 4.8 {ratio} High 0.0-4.5 [facility] Comment on above: Order Comment: No: D o not add to previous draw Performed By: #### 0 0071, 39510 #### [facility] [address] [place] [address], [facility] NON-HDL CHOLESTEROL 114 mg/dL Normal [facility] Comment on above: Order Comment: No: D o not add to previous draw Performed By: #### 0 0071, 46065 #### [facility] [address] [place] [address], [facility] Triglyceride [Mass/Vol] 203 mg/dL High 40-149 [facility] Comment on above: Order Comment: No: D o not add to previous draw Result Comment: TRIG LYCERIDE REFERENCE RANGE: 20 YEARS AND OLDER CARDIOVASCULAR RISK LESS THAN 150 mg/dl LOW RISK 150 TO 199 mg/dl BORDERLINE RISK 200 mg/dl AND GREATER HIGH RISK Performed By: #### 0 0071, 44635 #### [facility] [address] [facility]. [address] VLDL CHOL 41 mg/dL High 0-40 [facility] Comment on above: Order Comment: No: D o not add to previous draw Performed By: #### 0 0071, 60655 #### [facility] [address] PROTHROMBIN TIMEon 1 INR Coag (PPP) [Relative time] 1.00 {INR} Normal 0.91-1.16 [facility] [...] 1995;108:[id number]-246S. Performed By: #### 5 6101 #### [facility] [address] PT Coag (PPP) [Time] 13.2 s Normal 12.3-14.8 [facility] [place] [facility] Comment on above: Order Comment: No: D o not add to previous draw Result Comment: ALL RESULTS MUST BE INTERPRETED WITH RESPECT TO BLOOD DRAWING ARTIFACT OR DILUTION ERROR OF ANTICOAGULANT AT THE TIME OF SAMPLING. Performed By: #### 5 6101 #### [facility] [address] [facility] BNP (B-TYPE NATRIURETIC PEPT FELISA)on 10-09-2020 Natriuretic peptide B (Bld) [Mass/Vol] 32 pg/mL Normal 0-100 [facility] Comment on above: Order Comment: No: D o not add to previous draw Result Comment: Give n the appropriate clinical setting a BNP result of >100 pg/mL indicates congestive heart failure. Performed By: #### 8 5123 #### [facility] [address] [facility]. [address] TROPONIN-Ion 10-09-2020 Troponin I.cardiac [Mass/Vol] 0.00 ng/mL Normal 0.00-0.04 [facility] Comment on above: Order Comment: No: D o not add to previous draw Result Comment: REFE RENCE RANGES: 0.00 - 0.14 ng/ml NEGATIVE 0.15 - 0.25 ng/ml INDETERMINATE > 0.25 ng/ml INDICATIVE OF AN M.I. Performed By: #### 3 5200 #### [facility] [address] [facility]. [address] Provider Letter FTMCon 09-20 Provider Letter [facility] [address], [address] [place] [address] Re: KARLA MCCOLLUM Date of : 1950 Thank you for your referral of Karla Mccollum who was seen on consultation on Sep 17, 2020, for three skin lesions of concern. I have enclosed my consultation note for your review, and I will be happy to follow Karla should he need further treatment. Sincerely, Karla Dye MD General Surgery [facility] Facesheeton 09-18-2020 Facesheet [id number] .[id number]:127 [facility] Ambulatory Clinical Summaryo n 09-17-2020 Ambulatory Clinical Summary {[id number] Normal [facility] General Surgery Office/Clini c Noteon 09-17-2020 General [...] Primary malignant neoplasm of lung: Father. Normal [facility] Comment on above: Result Comment: Elec tronically Signed By: Karla DYE MD\Date and Time Signed: 09/17/20 16:29 EST Physician Referralon 021 Physician Referral [id number] .[id number]:127 Normal [facility] Vital Signs Date Time Vital Sign Value Performing Clinician Faci lity 05-30-2024 10:040 Body height 177.8 cm Sadaf Malhotra MD Work Phone: [facility] 05-30-2024 10:29-040 Body mass index (BMI) [Ratio] 36.16 kg/m2 Sadaf Malhotra MD Work Phone: [facility] 05-30-2024 10:29040 Body weight 114.31 kg Sadaf Malhotra MD Work Phone: [facility] 05-30-2024 10:29-0400 Diastolic blood pressure 71 mm[Hg] Sadaf Malhotra MD Work Phone: [facility] 05-30-2024 10:29-0400 Systolic blood pressure 130 mm[Hg] Sadaf Malhotra MD Work Phone: [facility] Encounters Encounter Date Encounter Type Care Provider Facility Start: 05-30-2024 End: 05-30-2024 Bamboo flowsheet Sadaf Malhotra MD Work Phone: [facility] Start: 05-30-2024 End: 05-30-2024 Bamboo flowsheet Sadaf Malhotra MD Work Phone: [facility] Start: 05-30-2024 End: 05-30-2024 Office outpatient new 45 minutes Sadaf Malhotra MD Work Phone: [facility] Comment on above: Nontoxic multinodula r goiter (CMS/HCC) (Primary Dx); Neck mass Start: 05-30-2024 End: 05-30-2024 ambulatory SADAF MALHOTRA Not Available Start: 05-15-2024 End: 05-15-2024 ambulatory Hoa Tran [facility] Work Phone: Start: 05-15-2024 End: 05-15-2024 Departed Referred MD Hoa Tran Work Phone: [facility] Start: 12-22-2023 End: 12-22-2023 ambulatory [facility] Start: 12-15-2023 End: 12-15-2023 ambulatory Bismark Redd Facility:[facility] Start: 12-02-2023 End: 12-02-2023 ambulatory JACQUI GUILLEN Not Available Start: 06-18-2023 End: 06-18-2023 ambulatory [facility] Start: 11-24-2022 End: 11-25-[address] NELI STERN Facility: Start: 09-02-2022 End: 09-02-[address] HOA TRAN . Facility:[facility] Start: 12-17-2021 End: 12-18-[address] HOA TRAN . Facility:[facility] Start: 10-09-2020 End: 10-12-2020 Evaluation and management of inpatient HOA TRAN Facility:[facility] Procedures Date Procedure Procedure Detail Performing Clinician Start: 10-10-2020 INTRODUCE OTH THERAP SUBST IN CORONARY ART, PERC NELI V MOUKARBEL Start: 10-10-2020 PLAIN RADIOGRAPHY OF MULT COR ART USING L OSM CONTRAST NELI V MOUKARBEL Start: 10-10-2020 PLAIN RADIOGRAPHY OF R LOW EXTREM ART USING L OSM CONTRAST NELI V MOUKARBEL Plan of Treatment Date Care Activity Detail Author Start: 12-04-2024 End: 12-04-2024 Patient encounter procedure 12/04/2024 9:30 AM EDT Office Visit [facility] [address] [place] [id number] Jacqui Guillen MD [address] [place] [address] [facility] Start: 05-30-2024 End: 05-30-2024 Patient encounter procedure 05/30/2024 10:30 AM EDT Office Visit [facility] [address] [place] [id number] Sadaf Malhotra MD [address] [place] [address] Arrived [facility] Comment on above: Arrived Start: 04-16-2024 Influenza vaccination Influenza Vacc ine (#1) [facility] Start: 1950 Screening for malign ant neoplasm of colon [facility] Immunizations Immunization Date Immunization Notes Care Provider Fa cility 05-03-2023 influenza virus vacc ine, unspecified formulation Sadaf Malhotra MD Work Phone: [facility] Payers Date Payer Category Payer Self-pay 2023 Medicare (Managed Care) [employer] [id number] 2023 Medicare [id number] 1958 Medicare [id number] 1958 Unknown [id number] 1950 Unknown [id number]. 2.647 1950 Unknown [id number] [id number]. 2.593 1950 Unknown [id number] [id number]. 2.593 1950 Unknown [id number] [id number]. 2.593 1950 Unknown [id number] [id number]. 2.1259 1950 Unknown [id number] [id number]. 2.1259 Unknown [employer] BC/BS [id number] Unknown Insurance No Card [id number] Unknown [id number] [id number] Unknown [id number] 2.531 Social History Date Type Detail Facility Start: [facility] Start: 1950 Sex Assigned At Male F [facility] Start: 12-02-2023 [facility] smoking consumption unknown [facility] Start: 1950 Sex assigned at Not on file [facility] Start: 05-30-2024 Gender identity Not on file [facility] Start: 05-30-2024 Tobacco smoking stat [facility] Ex-smoker [facility] History of tobacco use Current smoker [facility] History of tobacco use Cigarette Smoker [facility] History of tobacco use Passive smoker [facility] Start: 05-30-2024 Tobacco use and exposure Smokeless tobacco non-user [facility] Start: 05-30-2024 Alcoholic beverage intake Current drinker of alcohol (finding) [facility] Start: 05-30-2024 History of Social function [facility] History of Present illness Narrative 05-30-2024 Sadaf Malhotra MD - 05/30/2024 10:30 AM EDT Note Date & Type Note Facility 05-30-2024 History of Presen t illness Narrative Subjective Patient ID: Karla Mccollum is a 74 y.o. male who presents for Neck Mass ( FNA 05/15/24 [facility]) Pt reports that in the course of being evaluated for a left submandibular mass he was found to also have thyroid nodules. US of the submental mass shows a [id number] mass. FNA c/w a lipoma. Thyroid US shows a [id number] RT TR5 nodule and a 35e70l8la LT TR4 nodule. Path on each thyroid nodule was [place] 1. No known radiation exposure or family h/o thyroid CA. Thyroid US stable from November to Apr. Review of Systems All other systems reviewed and are negative. Family History Problem Relation Name Age of Onset Heart failure Mother Cancer Father Active Ambulatory Problems Diagnosis Date Noted No Active Ambulatory Problems Resolved Ambulatory Problems Diagnosis Date Noted No Resolved Ambulatory Problems Past Medical History: Diagnosis Date Thyroid nodule (CMS/HCC) Past Surgical History: Procedure Laterality Date REPLACEMENT TOTAL HIP LATERAL POSITION 15 years ago SHOULDER ARTHROSCOPY Left 2018 No Known Allergies Current Outpatient Medications on File Prior to Visit Medication Sig Dispense Refill amLODIPine (Norvasc) 10 MG tablet Take 10 mg by mouth Daily aspirin 81 MG EC tablet Daily atorvastatin (Lipitor) 40 MG tablet Take 40 mg by mouth in the morning. ezetimibe (Zetia) 10 MG tablet take 1 tablet by mouth every morning Oral for 90 Days fenofibrate (Tricor) 145 MG tablet Take 145 mg by mouth Daily irbesartan (Avapro) 150 MG tablet Take 150 mg by mouth Daily isosorbide mononitrate ER (Imdur) 120 MG 24 hr tablet Take 120 mg by mouth metoprolol succinate XL (Toprol-XL) 100 MG 24 hr tablet Take 100 mg by mouth Daily lsibslcr-nykjahvbk-esbkgzazldankx (Cortisporin) 3.5-34996-3 otic suspension every 8 (eight) hours omeprazole (PriLOSEC) [address] capsule take 1 capsule by mouth once daily for 90 ranolazine (Ranexa) 1000 MG 12 hr tablet Take 1 tablet by mouth in the morning and 1 tablet before bedtime. [DISCONTINUED] ciclopirox (Loprox) 0.77 % cream Apply thin layer to affected area once a day, 30 day supply 30 g 11 [DISCONTINUED] oxaprozin (Daypro) 600 MG tablet 600 mg Daily as needed [DISCONTINUED] triamcinolone (Kenalog) 0.1 % cream 1 Application every 12 (twelve) hours No current facility-administered medications on file prior to visit. Objective Last Recorded Vitals Vitals: 05/30/24 1029 BP: 130/71 ENT Physical Exam Constitutional Appearance: patient appears well-developed and well-nourished, Head and Face Appearance: head appears normal and face appears atraumatic; Ear Ear comments: Greg ears normal Nose External Nose: nares patent bilaterally; external nose normal; Internal Nose: nasal mucosa normal; Oral Cavity/Oropharynx Lips: normal; Teeth: normal; Gums: gingiva normal; Tongue: normal; Oral mucosa: normal; Hard palate: normal; Neck Neck: neck normal; neck mass present; Thyroid: thyroid normal; Neck comments: Soft mobile submental mass C/W lipoma Respiratory Inspection: breathing unlabored; normal breathing rate; Auscultation: breath sounds are clear; Cardiovascular Inspection: extremities are warm and well perfused; no peripheral edema present; Auscultation: regular rate and rhythm; Assessment/Plan Diagnoses and all orders for this visit: Nontoxic multinodular goiter (CMS/HCC) Neck mass Pt has an apparent submental lipoma and greg thyroid nodules. I will follow with periodic US. If growth noted we will plan repeat bx, or removal documented in this encounter [facility] Progress note 12-22-2023 Note Date & Type Note Facility 12-22-2023 Note [facility] Subjective Karla Mccollum is a 73 [...] mg daily. He was admitted to the [facility] on 05/06/2023 with chest pain and [...] Disp: 90 tablet, (more content not included)... [facility] Progress note 06-18-2023 Note Date & Type Note Facility 06-18-2023 Note [facility] Subjective Karla Mccollum is a 73 y.o. year old male patient being seen for 6 mo follow up CAD, coronary artery spasm, hypertension, and hyperlipidemia. He was recently admitted to [facility] for chest pain in Apr 2023. Ranexa [...] mg daily. He was admitted to the [facility] on 05/06/2023 with chest pain and [...] Current Outpatient Medications (more content not included)... [facility] Clinical Note 12-17-2021 Note Date & [...] and reported in a separate dictation. [facility] Evaluation note Note Date & Type Note Facility Evaluation note No assessment information [facility] Work Phone: Evaluation note Note Date & Type Note Facility Evaluation note Diagnosis Nontoxic multinodular goiter (CMS/HCC)- Primary Nontoxic multinodular goiter Neck mass Swelling, mass, or lump in head and neck documented in this encounter [facility] Summary Purpose Family History Relationship Condition Age at Onset Recorded Date/T enma father Family history of lung cancer Unknown Unknown Malignant neoplasm Unknown mother Hypertension Unknown Advance Directives No Advanced Directives Records FoundNo Advanced Directives Records FoundNo Advanced Directives Records FoundNo Advanced Directives Records FoundNo Advanced Directives Records FoundNo Advanced Directives Records Found Hospital Course Note MR#: [id number] [facility] Pt. Name: Karla Mccollum Admitted: 10/09/2020 [...] section and content) DATE CREATED AUTHOR 09/22/2020 [facility] DATE CREATED AUTHOR AUTHOR'S ORGANIZ ATION 10/15/2020 [facility] DATE CREATED AUTHOR AUTHOR'S ORGANIZ ATION 11/30/2022 [facility] DATE CREATED AUTHOR AUTHOR'S ORGANIZ ATION 12/24/2023 [facility] DATE CREATED AUTHOR AUTHOR'S ORGANIZ ATION 05/20/2024 [facility] DATE CREATED AUTHOR AUTHOR'S ORGANIZ ATION 06/01/2024 [facility] EPIC Care Teams (unrecognized sec tion and content) Team Status: Inactive Member Role Status Dates Hoa Tran MD Attending Provider Active Sta rt: May 15, 2024 End: May 15, 2024 Internal Sales Relationship Specialty Start Date End Date Hoa Tran MD [address] [place] [address] PCP - General Family Medicine 05/30/24 Internal Sales Relationship Specialty Start Date End Date Hoa Tran MD [address] [place] [address] PCP - General Family Medicine 05/30/24 Goals (unrecognized section and content) Goals may be documented in a n alternate section Reason for Visit (unrecogniz ed section and content) Reason Comments Neck Mass FNA 05/15/24 [facility] FOR RECORDS PERTAINING TO PATIENTS WHO ARE [...] BE BASED ON THE PRIMARY CLINICAL RECORDS. [facility] [employer] provides no warranty or guarantee of the accuracy or completeness of information in this document.
[2024-07-29 12:58] VITALS: BP 127/59; PULSE 67; TEMP 37; O2SAT 100; BMI 33.0
--- NOTE | 2024-07-29 13:07 | ED_ITS ---
HPI HPI - Fall General Chief Complaint: Fall Stated Complaint: FALL; BACK PAIN Time Seen by Provider: 07/29/24 13:07 Source: patient and family Mode of arrival: Wheelchair Limitations: no limitations History of Present Illness HPI Narrative: Patient arrived by private vehicle from his home. He was outside near his barn trying to close the door. The handle gave way and then he fell back hitting his stool injuring his right low back and lower rib area. He is able to get inside and call his family for help. He did not have any syncopal episodes or loss of consciousness. He did not have any palpitations or arrhythmia. This was an early incident where the door handle gave way and he fell onto a stool. He did not hit his head or neck. Does not have any abdominal pain just pain in the right flank area. Related Data Home Medications ?Medication ?Instructions ?Recorded ?Confirmed amlodipine 10 mg tablet 10 mg PO QDAY 05/05/23 07/29/24 atorvastatin 40 mg tablet 40 mg PO QDAY 05/05/23 07/29/24 irbesartan 150 mg tablet 150 mg PO QDAY 05/05/23 07/29/24 isosorbide mononitrate 120 mg 120 mg PO QDAY 05/05/23 07/29/24 tablet,extended release 24 hr omeprazole 40 mg capsule,delayed 40 mg PO QDAY 05/05/23 07/29/24 release oxaprozin 600 mg tablet 600 mg PO TID PRN pain, moderate 05/05/23 12/15/23 aspirin 81 mg capsule 81 mg PO DAILY 12/10/23 05/15/24 metoprolol succinate 50 mg 100 mg PO QD 12/10/23 07/29/24 tablet,extended release 24 hr multivitamin 1 tab PO DAILY 12/10/23 07/29/24 ezetimibe 10 mg tablet 10 mg PO DAILY 05/12/24 07/29/24 fenofibrate nanocrystallized 145 145 mg PO DAILY 05/12/24 07/29/24 mg tablet Previous Rx's ?Medication ?Instructions ?Recorded nitroglycerin 0.4 mg sublingual 0.4 mg sublingual Q5M PRN chest 05/07/23 tablet (Nitrostat) pain #20 tabs ranolazine 1,000 mg 1,000 mg PO Q12H #60 tabs 05/07/23 tablet,extended release,12 hr Allergies Allergy/AdvReac Type Severity Reaction Status Date / Time No Known Drug Allergies Allergy Verified 07/29/24 13:04 Opioid HPI Opioid Management Most Recent Pain and Opioid Data: Last Pain Scale 5 07/29/24 14:12 07/29/24 Last ED Pain Assessment 07/29/24 14:12 Last MAR Pain Assessment 07/29/24 13:17 PFSH PFSH Medical History (Updated 07/29/24 @ 14:53 by Abdon Chanel MD) Chronic stable angina ?I20.89 - Other forms of angina pectoris (ICD-10) Diverticulosis ?K57.90 - Diverticulosis of intestine, part unspecified, without perforation or abscess without bleeding (ICD-10) HTN (hypertension) ?I10 - Essential (primary) hypertension (ICD-10) High cholesterol ?E78.00 - Pure hypercholesterolemia, unspecified (ICD-10) Sleep apnea ?G47.30 - Sleep apnea, unspecified (ICD-10) Surgical History (Updated 05/15/24 @ 15:16 by Kenna Ac) History of left heart catheterization ?Z98.890 - Other specified postprocedural states (ICD-10) H/O fine needle aspiration with imaging guidance ?Z98.890 - Other specified postprocedural states (ICD-10) H/O hernia repair ?Z98.890 - Other specified postprocedural states (ICD-10) ?Z87.19 - Personal history of other diseases of the digestive system (ICD-10) History of left hip replacement ?Z96.642 - Presence of left artificial hip joint (ICD-10) Hx of shoulder replacement ?Z96.619 - Presence of unspecified artificial shoulder joint (ICD-10) Family History (Updated 05/05/23 @ 16:15 by Stephanie Hand) Mother Family history of cancer Family history of hypertension Family history of diabetes mellitus Father Family history of cancer Family history of hypertension Family history of diabetes mellitus Social History (Updated 05/05/23 @ 16:16 by Stephanie Hand) Within the past year, how often did you have a drink containing alcohol: 2-4 times a month Smoking status: Former smoker Little interest or pleasure in doing things: not at all Feeling down, depressed, or hopeless: not at all Exam Narrative Exam Narrative: Patient is awake alert oriented x 3 GCS is 15. He has no head or neck injury or complaints and his cognition is normal. I smell no alcohol use very pleasant here with family members. He does live alone. Skin is warm and dry mucous membranes are moist and pink there is no pallor or diaphoresis or clamminess. He does appear to be uncomfortable and he is propping himself on the left side. Respiratory status is normal with normal pulse oximetry his lungs are clear with no wheeze rales or rhonchi there is no subcutaneous emphysema. In the paralumbar area there is abrasion noted in the upper and mid lumbar area. There is no expanding hematoma or laceration. He has no pain over the iliac crest or hip area. He has some discomfort with palpation of the lower ribs on the right side. His abdominal examination is benign with no abdominal symptomatology or discomfort. Rest the trunk torso extremities have no evidence of injury contus ions abrasions or otherwise. Constitutional Vital Signs, click to edit/add: Last Vital Signs Temp 98.6 F 07/29/24 12:58 Pulse 67 07/29/24 12:58 Resp 24 H 07/29/24 12:58 BP 127/59 07/29/24 12:58 Pulse Ox 100 07/29/24 12:58 O2 Del Method Room Air 07/29/24 12:58 Course Vital Signs Vital signs: Vital Signs Temperature 98.6 F 07/29/24 12:58 Pulse Rate 67 07/29/24 12:58 Respiratory Rate 24 H 07/29/24 12:58 Blood Pressure 127/59 07/29/24 12:58 Pulse Oximetry 100 07/29/24 12:58 Oxygen Delivery Method Room Air 07/29/24 12:58 Temperature 98.6 F 07/29/24 12:58 Pulse Rate 67 07/29/24 12:58 Respiratory Rate 24 H 07/29/24 12:58 Blood Pressure 127/59 07/29/24 12:58 Pulse Oximetry 100 07/29/24 12:58 Oxygen Delivery Method Room Air 07/29/24 12:58 MDM - Fall MDM Narrative Medical decision making narrative: After clinical examination due to the amount of discomfort was having we decided to go ahead and get a CT of his lumbar spine and chest area. The CT lumbar spine does not fact confirm transverse process fractures L1-L2-L3 and L4. Additionally there is a displaced fracture deformity of the posterior lateral right 11th rib with no pneumothorax or hemothorax noted. This patient lives alone but does have strong family support and he is very stoic. He was given Dilaudid here in the ER. We offered him overnight admission for pain management control but he prefers to go home. He does have family can help him. We will prescribe analgesics for him. He must see his primary care doctor early this week. He was told should he have any deterioration of his condition or see any blood in his urine he should return immediately to the ER. Discharge Plan Discharge Chief Complaint: Fall Clinical Impression: Closed fracture of transverse process of lumbar vertebra, Closed rib fracture Patient Disposition: Home, Self-Care Time of Disposition Decision: 14:53 Prescriptions / Home Meds: No Action atorvastatin 40 mg tablet 40 mg PO QDAY omeprazole 40 mg capsule,delayed release(DR/EC) 40 mg PO QDAY isosorbide mononitrate 120 mg tablet extended release 24 hr 120 mg PO QDAY irbesartan 150 mg tablet 150 mg PO QDAY oxaprozin 600 mg tablet 600 mg PO TID PRN (Reason: pain, moderate) amlodipine 10 mg tablet 10 mg PO QDAY ranolazine 1,000 mg tablet extended release 12 hr 1,000 mg PO Q12H Qty: 60 11RF nitroglycerin [Nitrostat] 0.4 mg tablet, sublingual 0.4 mg sublingual Q5M MDD 3 PRN (Reason: chest pain) Qty: 20 11RF Rx Instructions: do not exceed 3 doses per episode multivitamin Tablet 1 tab PO DAILY aspirin 81 mg capsule 81 mg PO DAILY metoprolol succinate 50 mg Tablet Extended Release 24 Hr 100 mg PO QD ezetimibe 10 mg tablet 10 mg PO DAILY fenofibrate nanocrystallized 145 mg tablet 145 mg PO DAILY Print Language: Polish Additional Instructions: Call your doctor Wednesday for repeat evaluation. Percocet for pain/ice/return for any blood in the urine or any other worsening symptoms or shortness of breath Referrals: Carlo Tran MD [Primary Care Provider] - 1 week
--- NOTE | 2024-07-29 13:08 | CT_ITS ---
[facility] [place] [id number] Patient Name: KARLA CUENCA MRN: [id number] date: 1950 Sex: M Assigned Patient Location: ER Current Patient Location: ER Accession/Order Number: [id number] Exam Date: 07/29/2024 13:25 Report Date: 07/29/2024 16:10 At the request of: CITLALLI BATISTA Procedure: CT chest wo con EXAMINATION: CT chest wo con, 07/29/2024 1:25 PM EST HISTORY: Fall right lower rib and flank pain. COMPARISON: CT angiogram of the chest with contrast 10/08/2020. TECHNIQUE: CT scan of the chest was performed without IV contrast. CT dose reduction technique was used, including Automated Exposure Control. FINDINGS: Small hepatic cysts are noted, largest within the lateral segment left hepatic lobe with transverse width of 2.7 cm. Upper abdominal contents demonstrate no acute abnormality. 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 Similar atherosclerotic change of the aorta is identified. Mid ascending thoracic segment has transverse diameter of 3.8 cm. Heart size is stable. CORONARY ARTERIES: There are calcifications associated with the coronary arteries again identified. These predominantly involve the right coronary artery segment. No new significantly enlarged adenopathy noted. No edema, failure, pneumonia, or pneumothorax otherwise noted. No new suspicious pulmonary mass or nodule noted. Multilevel cervical and thoracic spondylitic/facet arthritic changes are again identified. Arthritic changes about the left shoulder girdle are partially visualized. Significant arthritic changes at the right glenohumeral articulation with prior rotator cuff repair noted. Milder arthritic changes involving the sternoclavicular articulations are also noted. Displaced fracture deformity of the posterolateral right 11th rib, image #98 noted. Old healed fracture of anterior left third and fourth ribs with callus formation noted. Stable nonaggressive sclerotic focus involving the lateral left second rib. CT/CT chest wo con IMPRESSION: 1. Displaced fracture deformity of the posterolateral right 11th rib without pneumothorax. Old healed anterior left third and fourth rib fracture deformities are noted. 2. Heart size is stable with evidence of coronary artery calcifications. No acute cardiopulmonary process otherwise identified. 3. Benign-appearing hepatic cysts. Electronically authenticated by: MABEL MEJIA Date: 07/29/2024 16:10
--- NOTE | 2024-07-29 13:09 | CT_ITS ---
[facility] [place] [id number] Patient Name: KARLA CUENCA MRN: [id number] date: 1950 Sex: M Assigned Patient Location: ER Current Patient Location: Accession/Order Number: [id number] Exam Date: 07/29/2024 13:25 Report Date: 07/29/2024 16:00 At the request of: CITLALLI BATISTA Procedure: CT lumbar spine wo con CT LUMBAR SPINE WITHOUT CONTRAST, 07/29/2024. HISTORY: Fall. Low back pain. COMPARISON: None. TECHNIQUE: Noncontrast axial CT images obtained through the lumbar spine. Reconstructions obtained in the sagittal and coronal planes. Dose reduction techniques were achieved by using automated exposure control and/or adjustment of mA and/or kV according to patient size and/or use of iterative reconstruction technique. FINDINGS: There are acute fractures of the right transverse processes at L1, L2, L3, and L4. The transverse processes on the left are intact. Facet joints are intact. Spinous processes are intact. Vertebral body heights are normal. No acute compression fracture. Alignment is normal. There is severe degenerative disc disease at L4-L5 with severe disc space narrowing. Disc bulge results in mild spinal canal stenosis at L4-L5 and L5-S1. No paraspinal soft tissue swelling or paraspinal hematoma. CT/CT lumbar spine wo con IMPRESSION: 1. There are acute transverse process fractures on the right side at L1, L2, L3, and L4. 2. No other lumbar spine fracture. No compression fracture. Alignment normal. Electronically authenticated by: JOE KATZ Date: 07/29/2024 16:00
[2024-07-29] MEDS: HYDROMORPHONE HCL 1 MG/ML CARTRIDGE IM (13:17)
[2024-07-29 13:29] LABS: Basophils Percent Auto 0.4 % (0.2-2.0); Eosinophils Absolute Auto 0.2 10^3/uL (0.0-0.7); Eosinophils Percent Auto 1.9 % (0.9-7.0); Hematocrit 36.5 % (42.0-54.0); Hemoglobin 11.9 g/dL (14.0-18.0); Immature Granulocytes Abs Auto 0.05 10^3/uL (0.00-0.03); Immature Granulocytes Pct Auto 0.5 % (0.0-0.5); Lymphocytes Absolute Auto 1.8 10^3/uL (1.2-3.8); Lymphocytes Percent Auto 16.5 % (20.5-60.0); Mean Corpuscular HGB Conc 32.6 g/dL (29.9-35.2); Mean Corpuscular Hemoglobin 29.7 pg (25.9-34.0); Monocytes Absolute Auto 0.8 10^3/uL (0.3-0.8); Monocytes Percent Auto 7.3 % (1.7-12.0); Neutrophils Absolute Auto 8.1 10^3/uL (1.4-6.5); Neutrophils Percent Auto 73.4 % (43.0-75.0); Platelet Count 227 10^3/uL (150-450); Red Blood Count 4.01 10^6/uL (4.70-6.10); Red Cell Distribution Width 13.1 % (11.0-15.0)
== END 2024-07-29 15:07 | disposition home or self-care (01) ==
PROVIDERS: Emergency Provider Emergency Medicine Emergency Medical Services; PCP Family Medicine
DX: S22.31XA Fracture of one rib, right side, initial encounter for closed fracture (principal); S32.019A Unspecified fracture of first lumbar vertebra, initial encounter for closed fracture; S32.029A Unspecified fracture of second lumbar vertebra, initial encounter for closed fracture; S32.039A Unspecified fracture of third lumbar vertebra, initial encounter for closed fracture; S32.049A Unspecified fracture of fourth lumbar vertebra, initial encounter for closed fracture; W18.39XA Other fall on same level, initial encounter; Z96.642 Presence of left artificial hip joint; Z87.891 Personal history of nicotine dependence
CPT/HCPCS: 36415; 71250; 72131; 85025; 96372; 99285; J1171

== ENCOUNTER 2024-08-10 08:58 | Outpatient (OUT) | payer MEDICARE, SELFPAY ==
--- OUTSIDE RECORDS SUMMARY | 2024-08-10 09:10 | XMS_ITS | CCD ---
Author Organization [facility] Care Team Providers Care Varnish Cooker Name Role Phone HOA TRAN Primary Care Unavailable UNKNOWN, PROVIDER Referring Unavailable GRISELDA, HANI Admitting Unavailable GRISELDA HANI Attending Unavailable [place] Procedure Practitioner Unavailab le UNKNOWN, PROVIDER Surgeon [...] Unavailable Hoa Tran MD Primary Care Provider [phone] Medications Current Medications Medication Drug Class(es) Dates [...] / neomycin 3.5 mg/ml / polymyxin b 24637 unt/ml otic suspension (3 sources) Aminoglycoside Antibacterial, Polymyxin-class Antibacterial, Corticosteroid Start: 07-01-2023 neomycin-polymyxin -hydrocortisone (Cortisporin) 3.5-26430-4 otic suspension every 8 (eight) hours 07/01/2023 [...] Onset: 09-02-2022 Episodic Other aftercare (1 source) 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; 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] Onset: 09-03-2022 Episodic Other aftercare (1 source) Other alf (current) drug therapy; Translations: [OTH PENITENTIARY CURRENT DRUG THERAPY] Onset: 09-03-2022 Episodic Other [...] Test Name Value Interpretation Reference Range Facility [facility] 05-15-2024 L Specimen: [id number] Received: 05/17/24 Status: SOUT Req Num: [id number] Spec Type: Cytology Subm Dr: Hoa Tran MD Tissues: A FNA SLIDES NOPATH (RT THY) B FNA SLIDES NOPATH (LT THY) Procedures: Cyto Int and Re/2, PAPSTN/10 Age/ Patient Sex Location Account Attending Physician Karla Mccollum/M [facility] [id number] Hoa Tran MD SPEC NUM: [id number] RECD: 05/17/24 STATUS: SOUYamilex REQ NUM: [id number] SEAN: 05/15/24 DR: Hoa Tran MD ENTERED: 05/17/[address]: Elisha Pearson MD SPEC TYPE: Cytology DEPT: [facility]REG WARAD[facility] ENTERED BY: [id number] RECV BY: [id number] ORDERED: Cyto Int and Re/2, PAPSTN/10 ORDERED: Cyto Int and Re/2, PAPSTN/10 Pathological Diagnosis A. Right thyroid, inferior nodule, fine needle aspiration: - Unsatisfactory for evaluation due to scant cellularity. - Scant watery colloid, non-diagnostic ([place] Category:I). B. Left thyroid, inferior nodule, fine needle aspiration: - Unsatisfactory for evaluation due to scant cellularity. - Scant watery colloid and blood, non-diagnostic ([place] Category:I). Comment: Recommend repeat thyroid FNA as clinically indicated. Clinical Information Bilateral thyroid nodules Gross Description A. (RT) Received fixed in Cytolyt is <1 ml colorless clear fluid for cytology and labeled as right thyroid nodule inferior. ThinPrep preparations are prepared for microscopic examination. Also received are 4 spray fixed smeared slides for pap and a Veracyte vial stored at -20 microscopic examination. (/ga) -------- Specimen: [id number] Received: 05/17/24 Status: EDWINA Spears Num: [id number] Spec Type: Cytology Subm Dr: Hoa Tran MD Tissues: A FNA SLIDES NOPATH (RT THY) B FNA SLIDES NOPATH (LT THY) Procedures: Cyto Int and Re/2, PAPSTN/10 -------- Patient: Karla Mccollum [id number] (Continued) -------- Specimen: [id number] Received: 05/17/24 (Continued) Gross Description (Continued) Signed (signature on file) Rajesh Ridley MD 05/18/24 1609 -------- Specimen: [id number] Received: 05/17/24 Status: EDWINA Spears Num: [id number] Spec Type: Cytology Subm Dr: Hoa Tran MD Tissues: A FNA SLIDES NOPATH (RT THY) B FNA SLIDES NOPATH (LT THY) Procedures: Cyto Int and Re/2, PAPSTN/10 -------- Patient: Karla Mccollum [id number] (Continued) -------- Specimen: [id number] Received: 05/17/24 (Continued) Gross Description (Continued) B. (LT) Received fixed in Cytolyt is <1 ml colorless clear fluid for cytology and labeled as left thyroid nodule inferior. ThinPrep preparations are prepared for microscopic examination. Also received are 4 spray fixed smeared slides for pap and a Veracyte vial stored at -20 for microscopic examination. (/ga) Microscopic Description A B: Microscopic examination is performed. CPT Codes 77400 x2, 07160 x2 -------- -------- Specimen: [id number] Received: 05/17/24 Status: EDWINA Spears Num: [id number] Spec Type: Cytology Subm Dr: Hoa Tran MD Tissues: A FNA SLIDES JAIMEATH (RT THY) B FNA SLIDES NOPATH (LT THY) Procedures: Cyto Int and Re/2, PAPSTN/10 -------- Patient: Karla Mccollum [id number] (Continued) -------- Signed (signature on file) Rajesh Ridley MD 05/18/24 1609 Normal [facility] Office Visiton 12-22-2023 Follow-up visit [id number] Karla Mccollum 1950 M Date Provider Department Center 12/22/2023 [facility] Lili Antony Family History Problem Relation Age of Onset Hypertension Mother Family Status - Relation Status Age at Mother Level of Service:70677 [place] OFFICE/OUTPATIENT ESTABLISHED LOW MDM 20 MIN Normal [facility] 12-15-2023 L Specimen: Received: 12/16/23 Status: EDWINA Spears Num: [id number] Spec Type: Cytology Subm Dr: Bismark Redd MD Tissues: A FNA SLIDES NOPATH (LT SUBMENT MASS) Procedures: HE/2, Cyto Int and Re, PAPSTN/7 Age/ Patient Sex Location Account Attending Physician Karla Mccollum 73/M [place] [id number] Bismark Redd MD SPEC NUM: [id number] RECD: 12/16/23 STATUS: TASHYamilex SPEARS NUM: [id number] SEAN: 12/15/23- SUBM DR: Bismark Redd MD ENTERED: 12/16/[address] [facility] [address]: Elisha Pearson MD SPEC TYPE: Cytology DEPT: [facility] ENTERED BY: [id number] RECV BY: [id number] ORDERED: HE/2, Cyto Int and Re, PAPSTN/7 [...] to be stained pap are additionally received. (CC/ga) CPT Codes 76097 -------- -------- Specimen: [id number] Received: 12/16/23-1403 Status: EDWINA Spears Num: [id number] Spec Type: Cytology Subm Dr: Bismark Redd MD Tissues: A FNA SLIDES NOPATH ( SUBMENT MASS) Procedures: HE/2, Cyto Int and Re, PAPSTN/7 -------- Patient: Karla Mccollum [id number] (Continued) -------- Signed (signature on file) Bismark Quiñonez MD 12/17/23 1054 Normal [facility] Office Visiton 06-18-2023 Follow-up visit [id number] Karla Mccollum 1950 M Date Provider Department [facility] 06/18/2023 [facility] Family History Problem Relation Age of Onset Hypertension Mother Family Status - Relation Status Age at Mother Level of Service:45314 [place] OFFICE/OUTPATIENT ESTABLISHED MOD MDM 30-39 MIN Normal [facility] LIPID PROFILEon 11-24-2022 CHOL-HDL RATIO NORM SEE BELOW Normal [facility] Comment on above: Result Comment: 3.3 - 4.4 LOW RISK 4.4 - 7.1 AVERAGE RISK 7.1 - 11.0 MODERATE RISK >11.0 HIGH RISK Performed By: #### L IPID #### [facility] [address] [address] [address] Paige Tee Cholesterol [Mass/Vol] 151 mg/dL Normal <=200 [facility] Comment on above: Performed By: #### L IPID #### [facility] [address] [address] [address] Paige Tee Cholesterol in HDL [Mass/Vol] 40 mg/dL Normal 40-60 [facility] Comment on above: Performed By: #### L IPID #### [facility] [address] [address] [address] Paige Tee Cholesterol in LDL [Mass/Vol] 87.4 mg/dL Normal [facility] Comment on above: Performed By: #### L IPID #### [facility] [address] [address] [address] Paige Tee Cholesterol.total/C holesterol in HDL [Mass ratio] 3.8 {ratio} Normal [facility] Comment on above: Performed By: #### L IPID #### [facility] [address] [address] [address] Paige Tee HDL NORMAL > or = 60 mg/dl - LO W CARDIOVASCULAR RISK <40 mg/dl - HIGH CARDIOVASCULAR RISK Normal [facility] Comment on above: Performed By: #### L IPID #### [facility] [address] [address] [address] Paige Tee LDL CALC NORMAL SEE BELOW Normal [facility] Comment on above: Result Comment: <100 mg/dl OPTIMAL 100 - 129 mg/dl NEAR OR ABOVE OPTIMAL 130 - 159 mg/dl BORDERLINE HIGH 160 - 189 mg/dl HIGH >190 mg/dl VERY HIGH Performed By: #### L IPID #### [facility] [address] [place] [address] Dr. Paige Tee Triglyceride [Mass/Vol] 118 mg/dL Normal <=150 [facility] Comment on above: Performed By: #### L IPID #### [facility] [address] [place] [address] Dr. Paige Tee VLDL CALC 23.6 mg/dL Normal [facility] Comment on above: Performed By: #### L IPID #### [facility] [address] [place] [address] Dr. Paige Tee CBC AUTO DIFFon 09-02-2022 BASO # 0.1 103/ul Normal 0.0-0.1 [facility] Comment on above: Performed By: #### C BC #### [facility] [address] [place] [address] Dr. Paige Tee Basophils/100 WBC (Bld) 0.6 % Normal 0.2-2.0 [facility] Comment on above: Performed By: #### C BC #### [facility] [address] [place] [address] Dr. Paige Tee EO # 0.4 103/ul Normal 0.0-0.7 [facility] Comment on above: Performed By: #### C BC #### [facility] [address] [place] [address] Dr. Paige Tee Eosinophils/100 WBC (Bld) 4.0 % Normal 0.9-7.0 [facility] Comment on above: Performed By: #### C BC #### [facility] [address] [place] [address] Dr. Paige Tee Erythrocyte distribution width (RBC) [Ratio] 13.8 % Normal 11.0-15.0 [facility] Comment on above: Performed By: #### C BC #### [facility] [address] [address] [address] Paige Tee Hematocrit (Bld) [Volume fraction] 35.9 % Critically low 42.0-54.0 [facility] Comment on above: Performed By: #### C BC #### [facility] [address] [place] [address] Dr. Paige Tee Hemoglobin (Bld) [Mass/Vol] 11.9 g/dL Critically low 14.0-18.0 [facility] Comment on above: Performed By: #### C BC #### [facility] [address] [place] [address] Dr. Paige Tee IG # 0.04 10e3/ul Critically high 0.00-0.03 [facility] Comment on above: Performed By: #### C BC #### [facility] [address] [place] [address] Dr. Paige Tee IG % 0.4 % Normal 0.0-0.5 [facility] Comment on above: Performed By: #### C BC #### [facility] [address] [place] [address] Dr. Paige Tee LYMPH # 3.2 103/ul Normal 1.2-3.8 [facility] Comment on above: Performed By: #### C BC #### [facility] [address] [place] [address] Dr. Paige Tee Lymphocytes/100 WBC (Bld) 30.0 % Normal 20.5-60.0 [facility] Comment on above: Performed By: #### C BC #### [facility] [address] [place] [address] Dr. Paige Tee MANUAL DIFF REQ NO Normal [facility] Comment on above: Performed By: #### C BC #### [facility] [address] [place] [address] Dr. Paige Tee MCH (RBC) [Entitic mass] 27.9 pg Normal 25.9-34.0 [facility] Comment on above: Performed By: #### C BC #### [facility] [address] [address] [address] Paige Tee MCHC (RBC) [Mass/Vol] 33.1 g/dL Normal 29.9-35.2 [facility] Comment on above: Performed By: #### C BC #### [facility] [address] [address] [address] Paige Tee MCV (RBC) [Entitic vol] 84.3 fL Normal 80.0-94.0 [facility] Comment on above: Performed By: #### C BC #### [facility] [address] [place] [address] Dr. Paige Tee MONO # 0.8 103/ul Normal 0.3-0.8 [facility] Comment on above: Performed By: #### C BC #### [facility] [address] [place] [address] Dr. Paige Tee Monocytes/100 WBC (Bld) 7.5 % Normal 1.7-12.0 [facility] Comment on above: Performed By: #### C BC #### [facility] [address] [place] [address] Dr. Paige Tee NEUT # 6.2 103/ul Normal 1.4-6.5 [facility] Comment on above: Performed By: #### C BC #### [facility] [address] [place] [address] Dr. Paige Tee Neutrophils/100 WBC (Bld) 57.5 % Normal 43.0-75.0 [facility] Comment on above: Performed By: #### C BC #### [facility] [address] [place] [address] Dr. Paige Tee Platelet mean volume (Bld) [Entitic vol] 9.5 fL Normal 9.5-13.5 [facility] Comment on above: Performed By: #### C BC #### [facility] [address] [place] [address] Dr. Paige Tee PLT 314 103/ul Normal 150-450 [facility] Comment on above: Performed By: #### C BC #### [facility] [address] [address] [address] Paige Tee RBC 4.26 106/ul Critically low 4.70-6.10 [facility] Comment on above: Performed By: #### C BC #### [facility] [address] [address] [address] Paige Tee WBC 10.8 103/ul Normal 4.0-11.0 [facility] Comment on above: Performed By: #### C BC #### [facility] [address] [place] [address] Dr. Paige Tee Covid-19 PCR (CVDTBH)on 08-16 SARS-CoV-2 (COVID-19) RNA UMER+probe Ql (Unsp spec) Not detected Normal NOT DETECTED [facility] Comment on above: Result Comment: When [...] for this test is supported by the [place] of Health and Human Service's declaration that [...] used). Performed By: #### C VDTBH #### [facility] [address] [place] [address] Dr. Paige Tee PROF CHEM 8 (BAS METB)on Anion gap [Moles/Vol] 13.7 mmol/L Normal [facility] Comment on above: Performed By: #### H STROPN, BMP #### [facility] [address] [place] [address] Dr. Paige Tee Calcium [Mass/Vol] 9.1 mg/dL Normal 8.5-10.1 [facility] Comment on above: Performed By: #### H STROPN, BMP #### [facility] [address] [place] [address] Dr. Paige Tee Chloride [Moles/Vol] 104 mmol/L Normal 98-107 [facility] Comment on above: Performed By: #### H STROPN, BMP #### [facility] [address] [place] [address] Dr. Paige Tee CO2 [Moles/Vol] 24.4 mmol/L Normal 21.0-32.0 [facility] Comment on above: Performed By: #### H STROPN, BMP #### [facility] [address] [place] [address] Dr. Paige Tee Creatinine [Mass/Vol] 1.11 mg/dL Normal 0.70-1.30 [facility] Comment on above: Performed By: #### H STROPN, BMP #### [facility] [address] [place] [address] Dr. Paige Tee EGFR-AF MEXICAN >60 Normal >=60 [facility] Comment on above: Performed By: #### H STROPN, BMP #### [facility] [address] [place] [address] Dr. Paige Tee EGFR-NON AF MEXICAN >60 Normal >=60 [facility] Comment on above: Performed By: #### H STROPN, BMP #### [facility] [address] [place] [address] Dr. Paige Tee Glucose [Mass/Vol] 115 mg/dL Critically high 74-106 [facility] Comment on above: Performed By: #### H STROPN, BMP #### [facility] [address] [address] [address] Paige Tee Potassium [Moles/Vol] 4.1 mmol/L Normal 3.5-5.1 [facility] Comment on above: Performed By: #### H STROPN, BMP #### [facility] [address] [place] [address] Dr. Paige Tee Sodium [Moles/Vol] 138 mmol/L Normal 136-145 [facility] Comment on above: Performed By: #### H TAMMI, BMP #### [facility] [address] [place] [address] Dr. Paige Tee Urea nitrogen [Mass/Vol] 20.0 mg/dL Critically high 7.0-18.0 [facility] Comment on above: Performed By: #### H TAMMI, BMP #### [facility] [address] [place] [address] Dr. Paige Tee Urea nitrogen/Creatinine [Mass ratio] 18.0 mg/mg Normal [facility] Comment on above: Performed By: #### H TAMMI, BMP #### [facility] [address] [place] [address] Dr. Paige Tee TROPONIN, HIGH SENSITIVITYon 09-02-2022 HSTROP 4.1 pg/mL Normal 4.0-76.1 [facility] Comment on above: Result Comment: CUT- OFF POINTS HAVE BEEN ESTABLISHED BASED ON THE FOURTH UNIVERSAL DEFINITIONS OF MYOCARDIAL INFARCTION. THE UPPER REFERENCE LIMIT (URL) OF TROPONIN, DEFINED THE 99TH PERCENTILE OF cTnI DISTRIBUTION IN A REFERENCE POPULATION, HAS BEEN CONFIRMED THE DECISION THRESHOLD FOR LA DIAGNOSIS. Performed By: #### H TAMMI #### [facility] [address] [place] [address] Dr. Paige Tee HSTROP 4.5 pg/mL Normal 4.0-76.1 [facility] Comment on above: Result Comment: CUT- OFF POINTS HAVE BEEN ESTABLISHED BASED ON THE FOURTH UNIVERSAL DEFINITIONS OF MYOCARDIAL INFARCTION. THE UPPER REFERENCE LIMIT (URL) OF TROPONIN, DEFINED THE 99TH PERCENTILE OF cTnI DISTRIBUTION IN A REFERENCE POPULATION, HAS BEEN CONFIRMED THE DECISION THRESHOLD FOR LA DIAGNOSIS. Performed By: #### H TAMMI, BMP #### [facility] [address] [place] [address] Dr. Paige Tee XR CHEST 1 Von [...] by: BISMARK REDD Date: 2022-09-02 12:29 Normal [facility] NM STRESS/REST MULTIon 12-17 NM STRESS/REST MULTI Patient: KARLA MCCOLLUM Exam Date: 12/17/2021 : 1950 Gender:M Ordering : DR HOA TRAN . Admission #: [id number] Family : Order #: [id number] CLICK HERE TO VIEW EXAM RADIOLOGY REPORT PROCEDURE: RADIONUCLIDE IMAGING STRESS/REST MULTI COMPARISON: PA STRESS/REST MULTI, 09/01/2019. PA STRESS/REST MULTI, 01/27/2016. INDICATIONS: Dyspnea, coronary artery [...] Redd MD on 12/18/2021 at 09:10 Normal [facility] BASIC METABOLIC PANELon 2 Calcium [Mass/Vol] 8.9 mg/dL Normal 8.6-10.3 [facility] Comment on above: Order Comment: No: D o not add to previous draw Performed By: #### 0 0071 #### [facility] [address] [place] [address], [place] Chloride [Moles/Vol] 105 mmol/L Normal 98-107 [facility] Comment on above: Order Comment: No: D o not add to previous draw Performed By: #### 0 0071 #### [facility] [address] [place] [address], [place] CO2 [Moles/Vol] 25 mmol/L Normal 21-31 [facility] Comment on above: Order Comment: No: D o not add to previous draw Performed By: #### 0 0071 #### [facility] [address] [place] [address], [place] Creatinine [Mass/Vol] 0.82 mg/dL Normal 0.70-1.30 [facility] Comment on above: Order Comment: No: D o not add to previous draw Performed By: #### 0 0071 #### [facility] [address] [place] [address], [place] GFR/1.73 sq M predicted among blacks MDRD (S/P/Bld) [Vol rate/Area] mL/min/{1.73_m2} Normal >60 [facility] Comment on above: Order Comment: No: D o not add to previous draw Performed By: #### 0 0071 #### [facility] [address] [place] [address], [place] GFR/1.73 sq M predicted among non-blacks MDRD (S/P/Bld) [Vol rate/Area] mL/min/{1.73_m2} Normal >60 [facility] Comment on above: Order Comment: No: D o not add to previous draw Performed By: #### 0 0071 #### [facility] [address] [place] [address], [facility] Glucose [Mass/Vol] 104 mg/dL High 70-100 [facility] Comment on above: Order Comment: No: D o not add to previous draw Performed By: #### 0 0071 #### [facility] [address] [place] [address], [facility] Potassium [Moles/Vol] 3.6 mmol/L Normal 3.5-5.1 [facility] Comment on above: Order Comment: No: D o not add to previous draw Performed By: #### 0 0071 #### [facility] [address] [place] [id number], [facility] Sodium [Moles/Vol] 137 mmol/L Normal 136-145 [facility] Comment on above: Order Comment: No: D o not add to previous draw Performed By: #### 0 0071 #### [facility] [address] [place] [address], [facility] Urea nitrogen [Mass/Vol] 13 mg/dL Normal 7-25 [facility] Comment on above: Order Comment: No: D o not add to previous draw Performed By: #### 0 0071 #### [facility] [address] [place] [id number], [facility] CBC COMPLETE BLOOD COUNTon 0 - Erythrocyte distribution width (RBC) [Ratio] 13.1 % Normal 11.5-15.0 [facility] Comment on above: Order Comment: No: D o not add to previous draw Performed By: #### 3 0 #### [facility] [address] [place] [address], [facility] Hematocrit (Bld) [Volume fraction] 36.6 % Low 39.0-50.0 [facility] Comment on above: Order Comment: No: D o not add to previous draw Performed By: #### 3 5200 #### [facility] [address] [place] [address], [facility] Hemoglobin (Bld) [Mass/Vol] 11.6 g/dL Low 13.0-17.0 [facility] Comment on above: Order Comment: No: D o not add to previous draw Performed By: #### 3 5200 #### [facility] [address] [place] [address], [facility] MCH (RBC) [Entitic mass] 28.1 pg Normal 27.0-33.0 [facility] Comment on above: Order Comment: No: D o not add to previous draw Performed By: #### 3 5200 #### [facility] [address] [place] [id number], [facility] MCHC (RBC) [Mass/Vol] 31.7 g/dL Low 32.0-35.0 [facility] Comment on above: Order Comment: No: D o not add to previous draw Performed By: #### 3 5200 #### [facility] [address] [place] [id number], [facility] MCV (RBC) [Entitic vol] 88.6 fL Normal 82.0-98.0 [facility] Comment on above: Order Comment: No: D o not add to previous draw Performed By: #### 3 5200 #### [facility] [address] [place] [id number], [facility] Nucleated RBC/100 WBC (Bld) [Ratio] 0 % Normal 0-0 [facility] Comment on above: Order Comment: No: D o not add to previous draw Performed By: #### 3 5200 #### [facility] [address] [place] [id number], [place] PLAT CNT 289 10*3/uL Normal 150-400 [facility] Comment on above: Order Comment: No: D o not add to previous draw Performed By: #### 3 5200 #### [facility] [address] [place] [id number], [facility] RBC (Bld) [#/Vol] 4.13 10*6/uL Low 4.20-5.70 [facility] Comment on above: Order Comment: No: D o not add to previous draw Performed By: #### 3 5200 #### [facility] [address] [place] [address], [place] WBC (Bld) [#/Vol] 10.27 10*3/uL Normal 4.00-10.60 [facility] Comment on above: Order Comment: No: D o not add to previous draw Performed By: #### 3 5200 #### [facility] [address] [place] [address], [place] BASIC METABOLIC PANELon 09-17 Calcium [Mass/Vol] 9.2 mg/dL Normal 8.6-10.3 [facility] Comment on above: Order Comment: No: D o not add to previous draw Performed By: #### 0 0071 #### [facility] [address] [place] [address], [place] Chloride [Moles/Vol] 106 mmol/L Normal 98-107 [facility] Comment on above: Order Comment: No: D o not add to previous draw Performed By: #### 0 0071 #### [facility] [address] [place] [address], [place] CO2 [Moles/Vol] 27 mmol/L Normal 21-31 [facility] Comment on above: Order Comment: No: D o not add to previous draw Performed By: #### 0 0071 #### [facility] [address] [place] [address], [place] Creatinine [Mass/Vol] 0.84 mg/dL Normal 0.70-1.30 [facility] Comment on above: Order Comment: No: D o not add to previous draw Performed By: #### 0 0071 #### [facility] [address] [place] [address], [place] GFR/1.73 sq M predicted among blacks MDRD (S/P/Bld) [Vol rate/Area] mL/min/{1.73_m2} Normal >60 The [facility] Comment on above: Order Comment: No: D o not add to previous draw Performed By: #### 0 0071 #### [facility] [address] [place] [address], [place] GFR/1.73 sq M predicted among non-blacks MDRD (S/P/Bld) [Vol rate/Area] mL/min/{1.73_m2} Normal >60 [facility] Comment on above: Order Comment: No: D o not add to previous draw Performed By: #### 0 0071 #### [facility] [address] [place] [address], [place] Glucose [Mass/Vol] 101 mg/dL High 70-100 [facility] Comment [facility] above: Order Comment: No: D o not add to previous draw Performed By: #### 0 0071 #### [facility] [address] [place] [address], [place] Potassium [Moles/Vol] 3.8 mmol/L Normal 3.5-5.1 [facility] Comment on above: Order Comment: No: D o not add to previous draw Performed By: #### 0 0071 #### [facility] [address] [place] [address], [place] Sodium [Moles/Vol] 139 mmol/L Normal 136-145 The [facility] Comment on above: Order Comment: No: D o not add to previous draw Performed By: #### 0 0071 #### [facility] [address] [place] [address], [place] Urea nitrogen [Mass/Vol] 15 mg/dL Normal 7-25 [facility] Comment on above: Order Comment: No: D o not add to previous draw Performed By: #### 0 0071 #### [facility] [address] CBC COMPLETE BLOOD COUNTon 10-11-2020 Erythrocyte distribution width (RBC) [Ratio] 12.9 % Normal 11.5-15.0 [facility] Comment on above: Order Comment: No: D o not add to previous draw Performed By: #### 3 5200 #### [facility] [address] [place] [address], [facility] Hematocrit (Bld) [Volume fraction] 38.6 % Low 39.0-50.0 [facility] Comment on above: Order Comment: No: D o not add to previous draw Performed By: #### 3 5200 #### [facility] [address] [place] [address], [facility] Hemoglobin (Bld) [Mass/Vol] 12.3 g/dL Low 13.0-17.0 [facility] Comment on above: Order Comment: No: D o not add to previous draw Performed By: #### 3 5200 #### [facility] [address] [address], [facility] MCH (RBC) [Entitic mass] 28.5 pg Normal 27.0-33.0 [facility] Comment on above: Order Comment: No: D o not add to previous draw Performed By: #### 3 5200 #### [facility] [address] [place] [address], [facility] MCHC (RBC) [Mass/Vol] 31.9 g/dL Low 32.0-35.0 [facility] Comment on above: Order Comment: No: D o not add to previous draw Performed By: #### 3 5200 #### [facility] [address] [address], [facility] MCV (RBC) [Entitic vol] 89.6 fL Normal 82.0-98.0 [facility] Comment on above: Order Comment: No: D o not add to previous draw Performed By: #### 3 5200 #### [facility] [address] [place] [address], [facility] Nucleated RBC/100 WBC (Bld) [Ratio] 0 % Normal 0-0 [facility] Comment on above: Order Comment: No: D o not add to previous draw Performed By: #### 3 5200 #### [facility] [address] [place] [address], [facility] PLAT CNT 279 10*3/uL Normal 150-400 The [facility] Comment on above: Order Comment: No: D o not add to previous draw Performed By: #### 3 5200 #### [facility] [address] [facility] [place] [address], [facility] RBC (Bld) [#/Vol] 4.31 10*6/uL Normal 4.20-5.70 The [facility] Comment on above: Order Comment: No: D o not add to previous draw Performed By: #### 3 5200 #### [facility] [address] [address], [facility] WBC (Bld) [#/Vol] 10.25 10*3/uL Normal 4.00-10.60 [facility] Comment on above: Order Comment: No: D o not add to previous draw Performed By: #### 3 5200 #### [facility] [address] [facility] [place] [address], [facility] CTA HEART-CORONARY/ ARTERY B YPASS GRAFT WITH 3DPPon 10-11-2020 CTA HEART-CORONARY/ ARTERY BYPASS GRAFT WITH 3DPP [facility] Department of Radiology [address] [place] [address] Patient Name: KARLA MCCOLLUM : 1950 Sex: M Age: Race: White Pt. Location: [address] [place] [address] Patient Status: I Ordered Date: 10/11/2020 8:30:00 [...] otherwise. Electronically signed: Asa Hill. Transcribed by: [email or web address], User Resident: ASA HILL Electronically Signed by: ASA HILL @ 10/11/2020 04:34 PM I personally read this/these film(s) with this resident Normal [facility] Comment on above: Order Comment: Other , LAD arising from right coronary cusp Cardiovascular Lab Reporton 10-11-2020 Cardiovascular Lab Report [facility] Patient Name: Karla Mccollum [facility] E MR #: [id number] Department of Physician: Neli Stern M.D. Division of Service Date: 10/10/2020 Cardiology Birthdate: 1950 Adult Cardiovascular Room #: 3AB [id number] [place] [address] Cardiovascular Laboratory Report INDICATION: The patient is [...] signed informed consent. 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 The right wrist area was prepped and draped in usual fashion. Modified Satnam's test was favorable on the right. Access in the right radial artery was obtained using micropuncture technique. A 6-British x 11 cm Hydrophilic sheath was advanced, [...] adequate location, this was upsized to a 6-British x 11 cm sheath. Bilateral selective coronary angiography was then performed using 6-British JL3.5 and JR4 diagnostic catheters. The 6-British JR4 diagnostic catheter was then used to [...] Stern M.D. Date Trans: 10/11/2020 06:09 Ester/lucia [id number] cc: Hoa Tran M.D. [address], [facility] [address] Neli Setrn M.D. Heart Failure/ Transplant Mailstop [address] [facility] [address] Normal [facility] BASIC METABOLIC PANELon 02-2 Calcium [Mass/Vol] 9.0 mg/dL Normal 8.6-10.3 [facility] Comment on above: Order Comment: No: D o not add to previous draw Performed By: #### 0 0071, 82505 #### [facility] [address] [place] [address], [place] Chloride [Moles/Vol] 103 mmol/L Normal 98-107 [facility] Comment on above: Order Comment: No: D o not add to previous draw Performed By: #### 0 0071, 94868 #### [facility] [address] [place] [address], [place] CO2 [Moles/Vol] 25 mmol/L Normal 21-31 The [facility] Comment on above: Order Comment: No: D o not add to previous draw Performed By: #### 0 0071, 03780 #### [facility] [address] [place] [address], [place] Creatinine [Mass/Vol] 0.87 mg/dL Normal 0.70-1.30 [facility] Comment on above: Order Comment: No: D o not add to previous draw Performed By: #### 0 0071, 37699 #### [facility] [address] [place] [address], [place] GFR/1.73 sq M predicted among blacks MDRD (S/P/Bld) [Vol rate/Area] mL/min/{1.73_m2} Normal >60 [facility] Comment on above: Order Comment: No: D o not add to previous draw Performed By: #### 0 0071, 73496 #### [facility] [address] [place] [address], [place] GFR/1.73 sq M predicted among non-blacks MDRD (S/P/Bld) [Vol rate/Area] mL/min/{1.73_m2} Normal >60 [facility] Comment on above: Order Comment: No: D o not add to previous draw Performed By: #### 0 0071, 09878 #### [facility] [address] [place] [address], [place] Glucose [Mass/Vol] 109 mg/dL High 70-100 The [facility] Comment on above: Order Comment: No: D o not add to previous draw Performed By: #### 0 0071, 47592 #### [facility] [address] [place] [address], [place] Potassium [Moles/Vol] 3.5 mmol/L Normal 3.5-5.1 [facility] Comment on above: Order Comment: No: D o not add to previous draw Performed By: #### 0 0071, 10187 #### [facility] [address] [place] [address], [place] Sodium [Moles/Vol] 137 mmol/L Normal 136-145 The [facility] Comment on above: Order Comment: No: D o not add to previous draw Performed By: #### 0 0071, 34842 #### [facility] [address] [place] [address], [place] Urea nitrogen [Mass/Vol] 14 mg/dL Normal 7-25 [facility] Comment on above: Order Comment: No: D o not add to previous draw Performed By: #### 0 0071, 36891 #### [facility] [address] [place] [address], [place] CBC COMPLETE BLOOD COUNTon 0 10-10-2020 Erythrocyte distribution width (RBC) [Ratio] 13.2 % Normal 11.5-15.0 [facility] Comment on above: Order Comment: No: D o not add to previous draw Performed By: #### 3 5350 #### [facility] [address] Hematocrit (Bld) [Volume fraction] 38.2 % Low 39.0-50.0 [facility] Comment on above: Order Comment: No: D o not add to previous draw Performed By: #### 3 5200 #### [facility] [address] [place] [id number], [facility] Hemoglobin (Bld) [Mass/Vol] 12.2 g/dL Low 13.0-17.0 [facility] Comment on above: Order Comment: No: D o not add to previous draw Performed By: #### 3 5200 #### [facility] [address] [place] [address], [facility] MCH (RBC) [Entitic mass] 28.6 pg Normal 27.0-33.0 [facility] Comment on above: Order Comment: No: D o not add to previous draw Performed By: #### 3 5200 #### [facility] [address] [place] [address], [facility] MCHC (RBC) [Mass/Vol] 31.9 g/dL Low 32.0-35.0 [facility] Comment on above: Order Comment: No: D o not add to previous draw Performed By: #### 3 5200 #### [facility] [address] [facility] [place] [address], [facility] MCV (RBC) [Entitic vol] 89.5 fL Normal 82.0-98.0 [facility] Comment on above: Order Comment: No: D o not add to previous draw Performed By: #### 3 5200 #### [facility] [address] [facility] [place] [address], [facility] Nucleated RBC/100 WBC (Bld) [Ratio] 0 % Normal 0-0 [facility] Comment on above: Order Comment: No: D o not add to previous draw Performed By: #### 3 5200 #### [facility] [address] [place] [address], [facility] PLAT CNT 253 10*3/uL Normal 150-400 The [facility] Comment on above: Order Comment: No: D o not add to previous draw Performed By: #### 3 5200 #### [facility] [address] [place] [address], [facility] RBC (Bld) [#/Vol] 4.27 10*6/uL Normal 4.20-5.70 The [facility] [place] [facility] Comment on above: Order Comment: No: D o not add to previous draw Performed By: #### 3 5200 #### [facility] [address] [place] [address], [facility] WBC (Bld) [#/Vol] 10.57 10*3/uL Normal 4.00-10.60 [facility] Comment on above: Order Comment: No: D o not add to previous draw Performed By: #### 3 5200 #### [facility] [address] HEMOGLOBIN A1Con 10-10-2020 HbA1c (Bld) [Mass fraction] 6.0 % Normal 4.0-6.0 [facility] Comment on above: Order Comment: No: D o not add to previous draw Performed By: #### 3 1791 #### [facility] [address] HbA1c (Bld) [Mass fraction] 126 mmol/L Normal [facility] Comment on above: Order Comment: No: D o not add to previous draw Performed By: #### 3 1791 #### [facility] [address] LIPID PROFILEon 10-10-2020 Cholesterol [Mass/Vol] 144 mg/dL Normal 120-200 [facility] Comment on above: Order Comment: No: D o not add to previous draw Result Comment: CHOL ESTEROL REFERENCE RANGE: 20 YEARS AND OLDER CARDIOVASCULAR RISK Less than 200 mg/dl Low Risk 200 to 239 mg/dl Borderline Risk 240 mg/dl and greater High Risk Performed By: #### 0 0071, 93780 #### [facility] [address] [place] [address], [facility] Cholesterol in HDL [Mass/Vol] 30 mg/dL Normal 23-92 [facility] Comment on above: Order Comment: No: D o not add to previous draw Result Comment: Slig ht variation in normal range could be due to gender and/or age. HDL CHOLESTEROL REFERENCE RANGE: 20 years and older Cardiovascular Risk > or =60 mg/dL Desirable 40 TO 59 mg/dL Low Risk <40 mg/dL High Risk Performed By: #### 0 0071, 58859 #### [facility] [address] [facility] [place] [address], [facility] Cholesterol in LDL [Mass/Vol] 73 mg/dL Normal 0-130 [facility] Comment on above: Order Comment: No: D o not add to previous draw Result Comment: LDL IS A CALCULATION LDL IS ONLY VALID IF THE TRIG IS LESS THAN 400. Performed By: #### 0 0071, 06467 #### [facility] [address] [place] [address], [facility] Cholesterol.total/C holesterol in HDL [Mass ratio] 4.8 {ratio} High 0.0-4.5 [facility] Comment on above: Order Comment: No: D o not add to previous draw Performed By: #### 0 0071, 61841 #### [facility] [address] [facility] [place] [address], [facility] NON-HDL CHOLESTEROL 114 mg/dL Normal The [facility] [place] [facility] Comment on above: Order Comment: No: D o not add to previous draw Performed By: #### 0 0071, 76167 #### [facility] [address] [place] [address], [facility] Triglyceride [Mass/Vol] 203 mg/dL High 40-149 [facility] Comment on above: Order Comment: No: D o not add to previous draw Result Comment: TRIG LYCERIDE REFERENCE RANGE: 20 YEARS AND OLDER CARDIOVASCULAR RISK LESS THAN 150 mg/dl LOW RISK 150 TO 199 mg/dl BORDERLINE RISK 200 mg/dl AND GREATER HIGH RISK Performed By: #### 0 0071, 14596 #### [facility] [address] [facility]. [address] VLDL CHOL 41 mg/dL High 0-40 [facility] Comment on above: Order Comment: No: D o not add to previous draw Performed By: #### 0 0071, 75263 #### [facility] [address] [facility] [address] PROTHROMBIN TIMEon 1 INR Coag (PPP) [Relative time] 1.00 {INR} Normal 0.91-1.16 [facility] Comment on above: Order Comment: No: [...] 1995;108:[id number]-246S. Performed By: #### 5 6101 #### [facility] [address] [facility] [address] PT Coag (PPP) [Time] 13.2 s Normal 12.3-14.8 [facility] Comment on above: Order Comment: No: D o not add to previous draw Result Comment: ALL RESULTS MUST BE INTERPRETED WITH RESPECT TO BLOOD DRAWING ARTIFACT OR DILUTION ERROR OF ANTICOAGULANT AT THE TIME OF SAMPLING. Performed By: #### 5 6101 #### [facility] [address] [facility]. [address] BNP (B-TYPE NATRIURETIC PEPT FELISA)on 10-09-2020 Natriuretic peptide B (Bld) [Mass/Vol] 32 pg/mL Normal 0-100 [facility] Comment on above: Order Comment: No: D o not add to previous draw Result Comment: Give n the appropriate clinical setting a BNP result of >100 pg/mL indicates congestive heart failure. Performed By: #### 8 5123 #### [facility] [address] [facility]. [address] TROPONIN-Ion 10-09-2020 Troponin I.cardiac [Mass/Vol] 0.00 ng/mL Normal 0.00-0.04 [facility] Comment on above: Order Comment: No: D o not add to previous draw Result Comment: REFE RENCE RANGES: 0.00 - 0.14 ng/ml NEGATIVE 0.15 - 0.25 ng/ml INDETERMINATE > 0.25 ng/ml INDICATIVE OF AN M.I. Performed By: #### 3 5200 #### [facility] [address] [facility]. [address] Provider Letter FTMCon 09-20 Provider Letter [facility] Hoa Tran, [address] [place] [address] Re: KARLA MCCOLLUM Date of : 1950 Thank you for your referral of Karla Mccollum who was seen on consultation on Sep 17, 2020, for three skin lesions of concern. I have enclosed my consultation note for your review, and I will be happy to follow Karla should he need further treatment. Sincerely, Karla Dye MD General Surgery [facility] Facesheeton 09-18-2020 Facesheet [id number] .[id number]:127 [facility] Ambulatory Clinical Summaryo n 09-17-2020 Ambulatory Clinical Summary {[id number] Normal [facility] General Surgery Office/Clini c Noteon [...] Primary malignant neoplasm of lung: Father. Normal [facility] Comment on above: Result Comment: Elec tronically Signed By: Karla DYE MD\Date and Time Signed: 09/17/20 16:29 EST Physician Referralon 021 Physician Referral [id number] .[id number]:127 Normal [facility] Vital Signs Date Time Vital Sign Value Performing Clinician Faci lity 05-30-2024 10:040 Body height 177.8 cm Sadaf Malhotra MD Work Phone: [facility] 05-30-2024 10:29-040 Body mass index (BMI) [Ratio] 36.16 kg/m2 Sadaf Malhotra MD Work Phone: [facility] 05-30-2024 10:29040 Body weight 114.31 kg Sadaf Malhotra MD Work Phone: [facility] 05-30-2024 10:29-0400 Diastolic blood pressure 71 mm[Hg] Sadaf Malhotra MD Work Phone: [facility] 05-30-2024 10:29-0400 Systolic blood pressure 130 [...] Start: 05-15-2024 End: 05-15-2024 ambulatory Hoa Tran [facility] Work Phone: Start: 05-15-2024 End: 05-15-2024 Departed Referred MD Hoa Tran Work Phone: [facility] Start: 12-22-2023 End: 12-22-2023 ambulatory [facility] Start: 12-15-2023 End: 12-15-2023 ambulatory [facility] Redd Facility:[facility] Start: 12-02-2023 End: 12-02-2023 ambulatory JACQUI GUILLEN Not Available Start: 06-18-2023 End: 06-18-2023 ambulatory [facility] Start: 11-24-2022 End: 11-25-[address] NELI STERN Facility: Start: 09-02-2022 End: 09-02-[address] HOA TRAN . Facility:[facility] Start: 12-17-2021 End: 12-18-[address] HOA TRAN . Facility:[facility] Start: 10-09-2020 End: 10-12-2020 Evaluation and management of inpatient HOA TRAN Facility:[facility] Procedures Date Procedure Procedure Detail Performing Clinician [...] DERM [address] [place] [id number] Jacqui Guillen MD [address] [place] [address] [facility] Start: 05-30-2024 End: 05-30-2024 Patient encounter procedure 05/30/2024 10:30 AM EDT Office Visit [facility] [address] [place] [id number] Sadaf Malhotra MD [address] [place] [address] Arrived [facility] Comment on above: [...] Medicare (Managed Care) AN[employer] M [employer] ADVANTAGE [id number] 2023 Medicare [id number] 1958 Medicare [id number] 1958 Unknown [id number] 1950 Unknown [id number] [id number]. 2.647 1950 Unknown [id number] [id number]. 2.593 1950 Unknown [id number] [id number]. 2.593 1950 Unknown [id number] [id number]. 2.593 1950 Unknown [id number] [id number]. 2.1259 1950 Unknown [id number] [id number]. 2.1259 Unknown [employer] BC/BS [id number] Unknown Insurance No Card [id number] Unknown [id number] [id number]. 2.531 Unknown [id number] [id number]. 2.531 Social History Date Type Detail Facility Start: [facility] Start: 1950 Sex Assigned At Male F [facility] Start: 12-02-2023 [facility] consumption [facility] Start: 1950 Sex assigned at Not on file [facility] Start: 05-30-2024 Gender identity Not on file [facility] Start: 05-30-2024 Tobacco smoking stat [facility] Ex-smoker [facility] History of tobacco use Current smoker [facility] History of tobacco use Cigarette Smoker [facility] History of tobacco use Passive smoker [facility] Start: 05-30-2024 Tobacco use and exposure Smokeless tobacco non-user [facility] Start: 05-30-2024 Alcoholic beverage intake Current drinker of alcohol (finding) [facility] Start: 05-30-2024 History of Social function [facility] History of Present illness Narrative 05-30-2024 Sadaf Malhotra MD - 05/30/2024 10:30 AM EDT Note Date & Type Note Facility 05-30-2024 History of Presen t illness Narrative Subjective Patient ID: Karla Mccollum is a 74 y.o. male who presents for Neck Mass ( FNA 05/15/24 [facility]) Pt reports that in the course of being evaluated for a left submandibular mass he was found to also have thyroid nodules. US of the submental mass shows a [id number] mass. FNA c/w a lipoma. Thyroid US shows a [id number] RT TR5 nodule and a [id number] LT TR4 nodule. Path on each thyroid nodule was [place] 1. No known radiation exposure or family [...] tablet Take 100 mg by mouth Daily clapffou-ppugdmrvo-qyhgsisvsrcmcv (Cortisporin) 3.5-76474-1 otic suspension every 8 (eight) hours omeprazole [...] bx, or removal documented in this encounter [facility] Healthcare Progress note 12-22-2023 Note Date & Type Note Facility 12-22-2023 Note [place] [facility] - [facility] Subjective Karla Mccollum is a 73 [...] mg daily. He was admitted to the [facility] on 05/06/2023 with chest pain and [...] Disp: 90 tablet, (more content not included)... [facility] Progress note 06-18-2023 Note Date & Type Note Facility 06-18-2023 Note [place] [facility] - [facility] Subjective Karla Mccollum is a 73 y.o. year old male patient being seen for 6 mo follow up CAD, coronary artery spasm, hypertension, and hyperlipidemia. He was recently admitted to [facility] for chest pain in Apr 2023. Ranexa [...] mg daily. He was admitted to the [facility] on 05/06/2023 with chest pain and [...] Current Outpatient Medications (more content not included)... [facility] Clinical Note 12-17-2021 Note Date & [...] and reported in a separate dictation. [facility] Evaluation note Note Date & Type Note Facility Evaluation note No assessment information [facility] Work Phone: Evaluation note Note Date & [...] Records Found Hospital Course Note MR#: [id number] [facility] Pt. Name: Karla Mccollum Admitted: 10/09/2020 [...] section and content) DATE CREATED AUTHOR 09/22/2020 [facility] DATE CREATED AUTHOR AUTHOR'S ORGANIZ ATION 10/15/2020 [facility] DATE CREATED AUTHOR AUTHOR'S ORGANIZ ATION 11/30/2022 [facility] DATE CREATED AUTHOR AUTHOR'S ORGANIZ ATION 12/24/2023 [facility] DATE CREATED AUTHOR AUTHOR'S ORGANIZ ATION 05/20/2024 [facility] DATE CREATED AUTHOR AUTHOR'S ORGANIZ ATION 06/01/2024 [facility] [employer] Care Teams (unrecognized sec tion and content) Team Status: Inactive Member Role Status Dates Hoa Tran MD Attending Provider Active Sta rt: May 15, 2024 End: May 15, 2024 [employer] Relationship Specialty Start Date End Date Hoa Tran MD [address] [place] [address] PCP - General Family Medicine 05/30/24 [employer]ish [employer]er Relationship Specialty Start Date End Date Hoa Tran MD [address] [place] [address] PCP - General Family Medicine 05/30/24 Goals [...] BE BASED ON THE PRIMARY CLINICAL RECORDS. [facility] [employer] provides no warranty or guarantee of the accuracy or completeness of information in this document.
--- NOTE | 2024-08-10 09:15 | XR_ITS ---
The [address] [address] Patient Name: KARLA CUENCA MRN: [id number] date: 1950 Sex: M Assigned Patient Location: [facility] Current Patient Location: [facility] Accession/Order Number: [id number] Exam Date: 08/10/2024 09:30 Report Date: 08/10/2024 13:59 At the request of: HOA BRIAN Procedure: XR lumbar spine min 4V EXAMINATION: XR lumbar spine min 4V HISTORY: Lumbar Pain since falling 2 weeks ago COMPARISON: CT lumbar spine 07/29/2024 FINDINGS: BONES: Minimally displaced fractures involving the right transverse process of L1, L2, and L3. Known right transverse process fracture of L4 is seen on CT study. Mild-moderate degenerative facet arthropathy L2-3 through L5-S1. Normal height and alignment of the lumbar vertebral bodies. DISC SPACES: Moderate narrowing L4-5. PARASPINOUS: Negative. No paraspinous abnormality is seen. OTHER: Atherosclerotic disease of the aorta. No appreciable aneurysm. XR/XR lumbar spine min 4V IMPRESSION: 1. Known subacute right transverse process fractures of L1, L2, L3, and L4, also seen on the CT lumbar spine 07/29/2024. No appreciable change allowing for differences in technique. 2. L4-5 moderate degenerative disc disease and multilevel mild-moderate degenerative facet arthropathy. Electronically authenticated by: MARK ANTHONY ALMONTE Date: 08/10/2024 13:59
== END 2024-08-10 08:59 | disposition home or self-care (01) ==
PROVIDERS: PCP Family Medicine; Visit Provider Family Medicine
DX: T14.8XXA Other injury of unspecified body region, initial encounter (principal)
CPT/HCPCS: 72110

== ENCOUNTER 2024-10-30 09:38 | Outpatient (OUT) | payer MEDICARE, SELFPAY ==
--- NOTE | 2024-10-30 09:40 | US_ITS ---
The [address] [address] Patient Name: KARLA CUENCA MRN: [id number] date: 1950 Sex: M Assigned Patient Location: [place] Current Patient Location: [place] Accession/Order Number: [id number] Exam Date: 10/30/2024 10:53 Report Date: 10/30/2024 10:57 At the request of: RODRI MALHOTRA MD Procedure: US thyroid Thyroid ultrasound Reason for exam: Multinodular goiter. Comparison: Thyroid ultrasound 05/05/2024. Technique: Grayscale and color Doppler images of the thyroid gland were obtained. Findings: The right lobe measures 4.5 x 1.4 x 1.9 cm. The left lobe measures 3.7 x 1.6 x 1.7 cm. The isthmus measures 5 mm. Hypoechoic nodule inferior aspect of the right lobe measuring 6 x 5 x 5 mm. 3 hypoechoic nodules are seen involving the left lobe largest measuring 6 x 5 x 4 mm involving the mid pole. No nodules are noted involving the isthmus. US/US thyroid Impression: Ultrasound evidence of multinodular thyroid gland largest measurable nodule involving the inferior pole of the right lobe measuring 6 x 5 x 5 mm. The nodules appear grossly unchanged in size when compared to the prior study from 2023. Repeat ultrasound in one year suggested. Impression dictated by: Dylan Stoner Jr., D.O.10/30/2024 10:57 AM Dictation Location: [place] [address] Electronically authenticated by: [id number] Y Date: 10/30/2024 10:57
--- OUTSIDE RECORDS SUMMARY | 2024-10-30 09:57 | XMS_ITS | CCD ---
Author Organization [facility] Care Team Providers Care Actuary Name Role Phone HOA TRAN Primary Care Unavailable UNKNOWN, PROVIDER Referring Unavailable GRISELDA, HANI Admitting Unavailable GRISELDA HANI Attending Unavailable [place] Procedure Practitioner Unavailab le UNKNOWN, PROVIDER Surgeon Unavailable SNEHAL ., DR CAMARA Primary Care Unavailable DIAB ., KWADWO Admitting Unavailable DIAB ., KWADWO Attending Unavailable Bismark Redd Consulting Unavailable DIAB ., KWADWO Consulting Unavailable ADALIUKAKELLY, DR QUINTEROS Admitting Unavailable MOARIN, DR QUINTEROS Attending Unavailable SNEHAL ., DR CAMARA Primary Care Unavailable MORAIN, DR QUINTEROS Consulting Unavailable SNEHAL ., DR CAMARA Admitting Unavailable SNEHAL ., DR CAMARA Attending Unavailable SNEHAL ., DR CAMARA Primary Care Unavailable SNEHAL ., DR CAMARA Consulting Unavailable Bismark Redd Consulting Unavailable NELI STERN Attending Unavailable NELI STERN Attending Unavailable MD Hoa Tran Attending Provider [phone] Hoa Tran Attending Unavailable Hoa Tran Admitting Unavailable Bismark Redd V Attending Unavailable Bismark Redd V Admitting Unavailable JACQUI GUILLEN Attending Unavailable SADAF MALHOTRA Attending Unavailable HOA TRAN Referring Unavailable Hoa Tran MD Primary Care Provider [phone] Medications Current Medications Medication Drug Class(es) Dates [...] / neomycin 3.5 mg/ml / polymyxin b 82355 unt/ml otic suspension (3 sources) Aminoglycoside Antibacterial, Polymyxin-class Antibacterial, Corticosteroid Start: 07-01-2023 neomycin-polymyxin -hydrocortisone (Cortisporin) 3.5-60131-1 otic suspension every 8 (eight) hours 07/01/2023 [...] Onset: 09-02-2022 Episodic Other aftercare (1 source) nursing home (current) use of aspirin; 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 05-15-2024 L Specimen: [id number] Received: 05/17/24 Status: SOUT Req Num: [id number] Spec Type: Cytology Subm Dr: Hoa Tran MD Tissues: A FNA SLIDES NOPATH (RT THY) B FNA SLIDES NOPATH (LT THY) Procedures: Cyto Int and Re/2, PAPSTN/10 Age/ Patient Sex Location Account Attending Physician Karla Mccollum/M [facility] [id number] Hoa Tran MD SPEC NUM: [id number] RECD: 05/17/24 STATUS: SOUYamilex REQ NUM: [id number] SEAN: 05/15/24 DR: Hoa Tran MD ENTERED: 05/17/[address]: Elisha Pearson MD SPEC TYPE: Cytology DEPT: [facility] ENTERED BY: [id number] RECV BY: [id number] ORDERED: Cyto Int and Re/2, PAPSTN/10 ORDERED: Cyto Int and Re/2, PAPSTN/10 Pathological Diagnosis A. Right thyroid, inferior nodule, fine needle aspiration: - Unsatisfactory for evaluation due to scant cellularity. - Scant watery colloid, non-diagnostic (Munith Category:I). B. Left thyroid, inferior nodule, fine needle aspiration: - Unsatisfactory for evaluation due to scant cellularity. - Scant watery colloid and blood, non-diagnostic (Munith Category:I). Comment: Recommend repeat thyroid FNA as [...] at -20 microscopic examination. (/il) -------- Specimen: [id number] Received: 05/17/24 Status: EDWINA Spears Num: [id number] Spec Type: Cytology Subm Dr: Hoa Tran MD Tissues: A FNA SLIDES NOPATH (RT THY) B FNA SLIDES NOPATH (LT THY) Procedures: Cyto Int and Re/2, PAPSTN/10 -------- Patient: Karla Mccollum [id number] (Continued) -------- Specimen: [id number] Received: 05/17/24 (Continued) Gross Description (Continued) Signed (signature on file) Rajesh Ridley MD 05/18/24 1609 -------- Specimen: [id number] Received: 05/17/24 Status: EDWINA Spears Num: [id number] Spec Type: Cytology Subm Dr: Hoa Tran MD Tissues: A FNA SLIDES NOPATH (RT THY) B FNA SLIDES NOPATH (LT THY) Procedures: Cyto Int and Re/2, PAPSTN/10 -------- Patient: Karla Mccollum [id number] (Continued) -------- Specimen: [id number] Received: 05/17/24 (Continued) Gross Description (Continued) B. [...] B: Microscopic examination is performed. CPT Codes 77774 x2, 80685 x2 -------- -------- Specimen: [id number] Received: 05/17/24 Status: EDWINA Spears Num: [id number] Spec Type: Cytology Subm Dr: Hoa Tran MD Tissues: A FNA SLIDES JAIMEATH (RT THY) B FNA SLIDES NOPATH (LT THY) Procedures: Cyto Int and Re/2, PAPSTN/10 -------- Patient: Karla Mccollum [id number] (Continued) -------- Signed (signature on file) Rajesh Ridley MD 05/18/[address] [facility] Office [facility] 12-22-2023 Follow-up visit [id number] Karla Mccollum 1950 M Date Provider Department Center 12/22/2023 367-NELI STERN [facility] Lili Antony Family History Problem Relation Age of Onset Hypertension Mother Family Status - Relation Status Age at Mother Level of Service:99903 [place] OFFICE/OUTPATIENT ESTABLISHED LOW MDM 20 MIN Normal [facility] Rudolph 12-15-2023 L Specimen: Received: 12/16/23 Status: EDWINA Spears Num: [id number] Spec Type: Cytology Subm Dr: Bismark Redd MD Tissues: A FNA SLIDES NOPATH (LT SUBMENT MASS) Procedures: HE/2, Cyto Int and Re, PAPSTN/7 Age/ Patient Sex Location Account Attending Physician Karla Mccollum 73/M [facility] [id number] Bismark Redd MD SPEC NUM: [id number] RECD: 12/16/23 STATUS: TASHYamilex SPEARS NUM: [id number] SEAN: 12/15/23- SUBM DR: Bismark Redd MD ENTERED: 12/16/[address] [facility] [address]: Elisha Pearson MD SPEC TYPE: Cytology DEPT: [facility] ENTERED BY: [id number] RECV BY: [id number] ORDERED: HE/2, Cyto Int and Re, PAPSTN/7 [...] pap are additionally received. (CC/il) CPT Codes 79865 -------- -------- Specimen: [id number] Received: 12/16/23-1403 Status: EDWINA Spears Num: [id number] Spec Type: Cytology Subm Dr: Bismark Redd MD Tissues: A FNA SLIDES NOPATH ( SUBMENT MASS) Procedures: HE/2, Cyto Int and Re, PAPSTN/7 -------- Patient: Karla Mccollum [id number] (Continued) -------- Signed (signature on file) Bismark Quiñonez MD 12/17/[address] [facility] 06-18-2023 Follow-up visit [id number] Karla Mccollum 1950 M Date Provider Department [place] 06/18/2023 NELI THRASHER [facility] Family History Problem Relation Age of Onset Hypertension Mother Family Status - Relation Status Age at Mother Level of Service:86280 [place] OFFICE/OUTPATIENT ESTABLISHED MOD MDM 30-39 MIN Normal [facility] LIPID PROFILEon 11-24-2022 CHOL-HDL RATIO NORM SEE BELOW Normal [facility] Comment on above: Result Comment: 3.3 - 4.4 LOW RISK 4.4 - 7.1 AVERAGE RISK 7.1 - 11.0 MODERATE RISK >11.0 HIGH RISK Performed By: #### L IPID #### [facility] [address] [address] [address] Paige Tee Cholesterol [Mass/Vol] 151 mg/dL Normal <=200 [facility] Comment on above: Performed By: #### L IPID #### [facility] [address] [address] [address] Paige Tee Cholesterol in HDL [Mass/Vol] 40 mg/dL Normal 40-60 [facility] Comment on above: Performed By: #### L IPID #### [facility] [address] [address] [address] Paige Tee Cholesterol in LDL [Mass/Vol] 87.4 mg/dL Normal [facility] Comment on above: Performed By: #### L IPID #### [facility] [address] [address] [address] Paige Tee Cholesterol.total/C holesterol in HDL [Mass ratio] 3.8 {ratio} Normal [facility] Comment on above: Performed By: #### L IPID #### [facility] [address] [address] [address] Paige Tee HDL NORMAL > or = 60 mg/dl - LO W CARDIOVASCULAR RISK <40 mg/dl - HIGH CARDIOVASCULAR RISK Normal [facility] Comment on above: Performed By: #### L IPID #### [facility] [address] [address] [address] Paige Tee LDL CALC NORMAL SEE BELOW Normal [facility] Comment on above: Result Comment: <100 mg/dl OPTIMAL 100 - 129 mg/dl NEAR OR ABOVE OPTIMAL 130 - 159 mg/dl BORDERLINE HIGH 160 - 189 mg/dl HIGH >190 mg/dl VERY HIGH Performed By: #### L IPID #### [facility] [address] [place] [address] Dr. Paige Tee Triglyceride [Mass/Vol] 118 mg/dL Normal <=150 [facility] Comment on above: Performed By: #### L IPID #### [facility] [address] [place] [address] Dr. Paige Tee VLDL CALC 23.6 mg/dL Normal [facility] Comment on above: Performed By: #### L IPID #### [facility] [address] [place] [address] Dr. Paige Tee CBC AUTO DIFFon 09-02-2022 BASO # 0.1 103/ul Normal 0.0-0.1 [facility] Comment on above: Performed By: #### C BC #### [facility] [address] [place] [address] Dr. Paige Tee Basophils/100 WBC (Bld) 0.6 % Normal 0.2-2.0 [facility] Comment on above: Performed By: #### C BC #### [facility] [address] [place] [address] Dr. Paige Tee EO # 0.4 103/ul Normal 0.0-0.7 [facility] Comment on above: Performed By: #### C BC #### [facility] [address] [place] [address] Dr. Paige Tee Eosinophils/100 WBC (Bld) 4.0 % Normal 0.9-7.0 [facility] Comment on above: Performed By: #### C BC #### [facility] [address] [place] [address] Dr. Paige Tee Erythrocyte distribution width (RBC) [Ratio] 13.8 % Normal 11.0-15.0 [facility] Comment on above: Performed By: #### C BC #### [facility] [address] [address] [address] Paige Tee Hematocrit (Bld) [Volume fraction] 35.9 % Critically low 42.0-54.0 [facility] Comment on above: Performed By: #### C BC #### [facility] [address] [place] [address] Dr. Paige Tee Hemoglobin (Bld) [Mass/Vol] 11.9 g/dL Critically low 14.0-18.0 [facility] Comment on above: Performed By: #### C BC #### [facility] [address] [place] [address] Dr. Paige Tee IG # 0.04 10e3/ul Critically high 0.00-0.03 [facility] Comment on above: Performed By: #### C BC #### [facility] [address] [place] [address] Dr. Paige Tee IG % 0.4 % Normal 0.0-0.5 [facility] Comment on above: Performed By: #### C BC #### [facility] [address] [place] [address] Dr. Paige Tee LYMPH # 3.2 103/ul Normal 1.2-3.8 [facility] Comment on above: Performed By: #### C BC #### [facility] [address] [place] [address] Dr. Paige Tee Lymphocytes/100 WBC (Bld) 30.0 % Normal 20.5-60.0 [facility] Comment on above: Performed By: #### C BC #### [facility] [address] [place] [address] Dr. Paige Tee MANUAL DIFF REQ NO Normal [facility] Comment on above: Performed By: #### C BC #### [facility] [address] [place] [address] Dr. Paige Tee MCH (RBC) [Entitic mass] 27.9 pg Normal 25.9-34.0 [facility] Comment on above: Performed By: #### C BC #### [facility] [address] [address] [address] Paige Tee MCHC (RBC) [Mass/Vol] 33.1 g/dL Normal 29.9-35.2 [facility] Comment on above: Performed By: #### C BC #### [facility] [address] [address] [address] Paige Tee MCV (RBC) [Entitic vol] 84.3 fL Normal 80.0-94.0 [facility] Comment on above: Performed By: #### C BC #### [facility] [address] [place] [address] Dr. Paige Tee MONO # 0.8 103/ul Normal 0.3-0.8 [facility] Comment on above: Performed By: #### C BC #### [facility] [address] [place] [address] Dr. Paige Tee Monocytes/100 WBC (Bld) 7.5 % Normal 1.7-12.0 [facility] Comment on above: Performed By: #### C BC #### [facility] [address] [place] [address] Dr. Paige Tee NEUT # 6.2 103/ul Normal 1.4-6.5 [facility] Comment on above: Performed By: #### C BC #### [facility] [address] [place] [address] Dr. Paige Tee Neutrophils/100 WBC (Bld) 57.5 % Normal 43.0-75.0 [facility] Comment on above: Performed By: #### C BC #### [facility] [address] [place] [address] Dr. Paige Tee Platelet mean volume (Bld) [Entitic vol] 9.5 fL Normal 9.5-13.5 [facility] Comment on above: Performed By: #### C BC #### [facility] [address] [place] [address] Dr. Paige Tee PLT 314 103/ul Normal 150-450 [facility] Comment on above: Performed By: #### C BC #### [facility] [address] [address] [address] Paige Tee RBC 4.26 106/ul Critically low 4.70-6.10 [facility] Comment on above: Performed By: #### C BC #### [facility] [address] [address] [address] Paige Tee WBC 10.8 103/ul Normal 4.0-11.0 [facility] Comment on above: Performed By: #### C BC #### [facility] [address] [place] [address] Dr. Paige Tee Covid-19 PCR (CVDTBH)on 08-16 SARS-CoV-2 (COVID-19) RNA UMER+probe Ql (Unsp spec) Not detected Normal NOT DETECTED [facility] Comment on above: Result Comment: [...] for this test is supported by the [employer] of [employer] and Human Service's declaration that [...] used). Performed By: #### C VDTBH #### [facility] [address] [place] [address] Dr. Paige Tee PROF CHEM 8 (BAS METB)on Anion gap [Moles/Vol] 13.7 mmol/L Normal [facility] Comment on above: Performed By: #### H STROPN, BMP #### [facility] [address] [place] [address] Dr. Paige Tee Calcium [Mass/Vol] 9.1 mg/dL Normal 8.5-10.1 [facility] Comment on above: Performed By: #### H STROPN, BMP #### [facility] [address] [place] [address] Dr. Paige Tee Chloride [Moles/Vol] 104 mmol/L Normal 98-107 [facility] Comment on above: Performed By: #### H STROPN, BMP #### [facility] [address] [place] [address] Dr. Paige Tee CO2 [Moles/Vol] 24.4 mmol/L Normal 21.0-32.0 [facility] Comment on above: Performed By: #### H STROPN, BMP #### [facility] [address] [place] [address] Dr. Paige Tee Creatinine [Mass/Vol] 1.11 mg/dL Normal 0.70-1.30 [facility] Comment on above: Performed By: #### H STROPN, BMP #### [facility] [address] [place] [address] Dr. Paige Tee EGFR-AF CYPRIOT >60 Normal >=60 [facility] Comment on above: Performed By: #### H STROPN, BMP #### [facility] [address] [place] [address] Dr. Paige Tee EGFR-NON AF CYPRIOT >60 Normal >=60 [facility] Comment on above: Performed By: #### H STROPN, BMP #### [facility] [address] [place] [address] Dr. Paige Tee Glucose [Mass/Vol] 115 mg/dL Critically high 74-106 [facility] Comment on above: Performed By: #### H STROPN, BMP #### [facility] [address] [address] [address] Paige Tee Potassium [Moles/Vol] 4.1 mmol/L Normal 3.5-5.1 [facility] Comment on above: Performed By: #### H STROPN, BMP #### [facility] [address] [place] [address] Dr. Paige Tee Sodium [Moles/Vol] 138 mmol/L Normal 136-145 [facility] Comment on above: Performed By: #### H TAMMI, BMP #### [facility] [address] [place] [address] Dr. Paige Tee Urea nitrogen [Mass/Vol] 20.0 mg/dL Critically high 7.0-18.0 [facility] Comment on above: Performed By: #### H TAMMI, BMP #### [facility] [address] [place] [address] Dr. Paige Tee Urea nitrogen/Creatinine [Mass ratio] 18.0 mg/mg Normal [facility] Comment on above: Performed By: #### H TAMMI, BMP #### [facility] [address] [place] [address] Dr. Paige Tee TROPONIN, HIGH SENSITIVITYon 09-02-2022 HSTROP 4.1 pg/mL Normal 4.0-76.1 [facility] Comment on above: Result Comment: CUT- OFF POINTS HAVE BEEN ESTABLISHED BASED ON THE FOURTH UNIVERSAL DEFINITIONS OF MYOCARDIAL INFARCTION. THE UPPER REFERENCE LIMIT (URL) OF TROPONIN, DEFINED THE 99TH PERCENTILE OF cTnI DISTRIBUTION IN A REFERENCE POPULATION, HAS BEEN CONFIRMED THE DECISION THRESHOLD FOR NM DIAGNOSIS. Performed By: #### H TAMMI #### [facility] [address] [place] [address] Dr. Paige Tee HSTROP 4.5 pg/mL Normal 4.0-76.1 [facility] Comment on above: Result Comment: CUT- OFF POINTS HAVE BEEN ESTABLISHED BASED ON THE FOURTH UNIVERSAL DEFINITIONS OF MYOCARDIAL INFARCTION. THE UPPER REFERENCE LIMIT (URL) OF TROPONIN, DEFINED THE 99TH PERCENTILE OF cTnI DISTRIBUTION IN A REFERENCE POPULATION, HAS BEEN CONFIRMED THE DECISION THRESHOLD FOR NM DIAGNOSIS. Performed By: #### H TAMMI, BMP #### [facility] [address] [place] [address] Dr. Paige Tee XR CHEST 1 Von [...] REDD Date: 2022-09-02 12:29 Normal [facility] NM STRESS/REST MULTIon 12-17 NM STRESS/REST MULTI Patient: KARLA MCCOLLUM Exam Date: 12/17/2021 : 1950 Gender:M Ordering : DR HOA TRAN . Admission #: [id number] Family : Order #: [id number] CLICK HERE TO VIEW EXAM RADIOLOGY REPORT PROCEDURE: RADIONUCLIDE IMAGING STRESS/REST MULTI COMPARISON: [place] STRESS/REST MULTI, 09/01/2019. [place] STRESS/REST MULTI, 01/27/2016. INDICATIONS: Dyspnea, coronary artery [...] Redd MD on 12/18/2021 at 09:10 Normal [facility] BASIC METABOLIC PANELon 2 Calcium [Mass/Vol] 8.9 mg/dL Normal 8.6-10.3 [facility] Comment on above: Order Comment: No: D o not add to previous draw Performed By: #### 0 0071 #### [facility] [address] [place] [address], [place] Chloride [Moles/Vol] 105 mmol/L Normal 98-107 [facility] Comment on above: Order Comment: No: D o not add to previous draw Performed By: #### 0 0071 #### [facility] [address] [place] [address], [place] CO2 [Moles/Vol] 25 mmol/L Normal 21-31 [facility] Comment on above: Order Comment: No: D o not add to previous draw Performed By: #### 0 0071 #### [facility] [address] [place] [address], [place] Creatinine [Mass/Vol] 0.82 mg/dL Normal 0.70-1.30 [facility] Comment on above: Order Comment: No: D o not add to previous draw Performed By: #### 0 0071 #### [facility] [address] [place] [address], [place] GFR/1.73 sq M predicted among blacks MDRD (S/P/Bld) [Vol rate/Area] mL/min/{1.73_m2} Normal >60 [facility] Comment on above: Order Comment: No: D o not add to previous draw Performed By: #### 0 0071 #### [facility] [address] [place] [address], [place] GFR/1.73 sq M predicted among non-blacks MDRD (S/P/Bld) [Vol rate/Area] mL/min/{1.73_m2} Normal >60 [facility] Comment on above: Order Comment: No: D o not add to previous draw Performed By: #### 0 0071 #### [facility] [address] [place] [address], [facility] Glucose [Mass/Vol] 104 mg/dL High 70-100 [facility] Comment on above: Order Comment: No: D o not add to previous draw Performed By: #### 0 0071 #### [facility] [address] [place] [address], [facility] Potassium [Moles/Vol] 3.6 mmol/L Normal 3.5-5.1 [facility] Comment on above: Order Comment: No: D o not add to previous draw Performed By: #### 0 0071 #### [facility] [address] [place] [id number], [facility] Sodium [Moles/Vol] 137 mmol/L Normal 136-145 [facility] Comment on above: Order Comment: No: D o not add to previous draw Performed By: #### 0 0071 #### [facility] [address] [place] [address], [facility] Urea nitrogen [Mass/Vol] 13 mg/dL Normal 7-25 [facility] Comment on above: Order Comment: No: D o not add to previous draw Performed By: #### 0 0071 #### [facility] [address] [place] [id number], [facility] CBC COMPLETE BLOOD COUNTon 0 - Erythrocyte distribution width (RBC) [Ratio] 13.1 % Normal 11.5-15.0 [facility] Comment on above: Order Comment: No: D o not add to previous draw Performed By: #### 3 0 #### [facility] [address] [place] [address], [facility] Hematocrit (Bld) [Volume fraction] 36.6 % Low 39.0-50.0 [facility] Comment on above: Order Comment: No: D o not add to previous draw Performed By: #### 3 5200 #### [facility] [address] [place] [address], [facility] Hemoglobin (Bld) [Mass/Vol] 11.6 g/dL Low 13.0-17.0 [facility] Comment on above: Order Comment: No: D o not add to previous draw Performed By: #### 3 5200 #### [facility] [address] [place] [address], [facility] MCH (RBC) [Entitic mass] 28.1 pg Normal 27.0-33.0 [facility] Comment on above: Order Comment: No: D o not add to previous draw Performed By: #### 3 5200 #### [facility] [address] [place] [id number], [facility] MCHC (RBC) [Mass/Vol] 31.7 g/dL Low 32.0-35.0 [facility] Comment on above: Order Comment: No: D o not add to previous draw Performed By: #### 3 5200 #### [facility] [address] [place] [id number], [facility] MCV (RBC) [Entitic vol] 88.6 fL Normal 82.0-98.0 [facility] Comment on above: Order Comment: No: D o not add to previous draw Performed By: #### 3 5200 #### [facility] [address] [place] [id number], [facility] Nucleated RBC/100 WBC (Bld) [Ratio] 0 % Normal 0-0 [facility] Comment on above: Order Comment: No: D o not add to previous draw Performed By: #### 3 5200 #### [facility] [address] [place] [id number], [place] PLAT CNT 289 10*3/uL Normal 150-[address] [facility] Comment on above: Order Comment: No: D o not add to previous draw Performed By: #### 3 5200 #### [facility] [address] [place] [id number], [facility] RBC (Bld) [#/Vol] 4.13 10*6/uL Low 4.20-5.70 [facility] Comment on above: Order Comment: No: D o not add to previous draw Performed By: #### 3 5200 #### [facility] [address] [place] [address], [place] WBC (Bld) [#/Vol] 10.27 10*3/uL Normal 4.00-10.60 [facility] Comment on above: Order Comment: No: D o not add to previous draw Performed By: #### 3 5200 #### [facility] [address] [place] [address], [place] BASIC METABOLIC PANELon 09-17 Calcium [Mass/Vol] 9.2 mg/dL Normal 8.6-10.3 [facility] Comment on above: Order Comment: No: D o not add to previous draw Performed By: #### 0 0071 #### [facility] [address] [place] [address], [place] Chloride [Moles/Vol] 106 mmol/L Normal 98-107 [facility] Comment on above: Order Comment: No: D o not add to previous draw Performed By: #### 0 0071 #### [facility] [address] [place] [address], [place] CO2 [Moles/Vol] 27 mmol/L Normal 21-31 [facility] Comment on above: Order Comment: No: D o not add to previous draw Performed By: #### 0 0071 #### [facility] [address] [place] [address], [place] Creatinine [Mass/Vol] 0.84 mg/dL Normal 0.70-1.30 [facility] Comment on above: Order Comment: No: D o not add to previous draw Performed By: #### 0 0071 #### [facility] [address] [place] [address], [place] GFR/1.73 sq M predicted among blacks MDRD (S/P/Bld) [Vol rate/Area] mL/min/{1.73_m2} Normal >60 [facility] Comment on above: Order Comment: No: D o not add to previous draw Performed By: #### 0 0071 #### [facility] [address] [place] [address], [place] GFR/1.73 sq M predicted among non-blacks MDRD (S/P/Bld) [Vol rate/Area] mL/min/{1.73_m2} Normal >60 [facility] Comment on above: Order Comment: No: D o not add to previous draw Performed By: #### 0 0071 #### [facility] [address] [place] [address], [place] Glucose [Mass/Vol] 101 mg/dL High 70-100 [facility]: Order Comment: No: D o not add to previous draw Performed By: #### 0 0071 #### [facility] [address] [place] [address], [place] Potassium [Moles/Vol] 3.8 mmol/L Normal 3.5-5.1 [facility] Comment on above: Order Comment: No: D o not add to previous draw Performed By: #### 0 0071 #### [facility] [address] [place] [address], [place] Sodium [Moles/Vol] 139 mmol/L Normal 136-145 The [facility] Comment on above: Order Comment: No: D o not add to previous draw Performed By: #### 0 0071 #### [facility] [address] [place] [address], [place] Urea nitrogen [Mass/Vol] 15 mg/dL Normal 7-25 [facility] Comment on above: Order Comment: No: D o not add to previous draw Performed By: #### 0 0071 #### [facility] [address] CBC COMPLETE BLOOD COUNTon 10-11-2020 Erythrocyte distribution width (RBC) [Ratio] 12.9 % Normal 11.5-15.0 [facility] Comment on above: Order Comment: No: D o not add to previous draw Performed By: #### 3 5200 #### [facility] [address] [place] [address], [facility] Hematocrit (Bld) [Volume fraction] 38.6 % Low 39.0-50.0 [facility] Comment on above: Order Comment: No: D o not add to previous draw Performed By: #### 3 5200 #### [facility] [address] [facility] [place] [address], [facility] Hemoglobin (Bld) [Mass/Vol] 12.3 g/dL Low 13.0-17.0 [facility] Comment on above: Order Comment: No: D o not add to previous draw Performed By: #### 3 5200 #### [facility] [address] [facility] [place] [address], [facility] MCH (RBC) [Entitic mass] 28.5 pg Normal 27.0-33.0 [facility] Comment on above: Order Comment: No: D o not add to previous draw Performed By: #### 3 5200 #### [facility] [address] [place] [address], [facility] MCHC (RBC) [Mass/Vol] 31.9 g/dL Low 32.0-35.0 [facility] Comment on above: Order Comment: No: D o not add to previous draw Performed By: #### 3 5200 #### [facility] [address] [place] [address], [facility] MCV (RBC) [Entitic vol] 89.6 fL Normal 82.0-98.0 [facility] Comment on above: Order Comment: No: D o not add to previous draw Performed By: #### 3 5200 #### [facility] [address] [place] [address], [facility] Nucleated RBC/100 WBC (Bld) [Ratio] 0 % Normal 0-0 [facility] Comment on above: Order Comment: No: D o not add to previous draw Performed By: #### 3 5200 #### [facility] [address] [place] [address], [facility] PLAT CNT 279 10*3/uL Normal 150-[address] [facility] Comment on above: Order Comment: No: D o not add to previous draw Performed By: #### 3 5200 #### [facility] [address] [facility] [place] [address], [facility] RBC (Bld) [#/Vol] 4.31 10*6/uL Normal 4.20-5.70 The [facility] Comment on above: Order Comment: No: D o not add to previous draw Performed By: #### 3 5200 #### [facility] [address] [facility] [place] [address], [facility] WBC (Bld) [#/Vol] 10.25 10*3/uL Normal 4.00-10.60 [facility] Comment on above: Order Comment: No: D o not add to previous draw Performed By: #### 3 5200 #### [facility] [address] [facility] [place] [address], [facility] CTA HEART-CORONARY/ ARTERY B YPASS GRAFT WITH 3DPPon 10-11-2020 CTA HEART-CORONARY/ ARTERY BYPASS GRAFT WITH 3DPP [facility] Department of Radiology [address] [place] [address] Patient Name: KARLA MCCOLLUM : 1950 Sex: M Age: Race: White Pt. Location: [address] [place] [address] Patient Status: I Ordered Date: 10/11/2020 8:30:00 [...] otherwise. Electronically signed: Asa Hill. Transcribed by: [email or web address], User Resident: ASA HILL Electronically Signed by: ASA HILL @ 10/11/2020 04:34 PM I personally read this/these film(s) with this resident Normal [facility] Comment on above: Order Comment: Other , LAD arising from right coronary cusp Cardiovascular Lab Reporton 10-11-2020 Cardiovascular Lab Report [facility] Patient Name: Karla Mccollum [facility] E MR #: [id number] Department of Physician: Neli Stern M.D. Division of Service Date: 10/10/2020 Cardiology Birthdate: 1950 Adult Cardiovascular Room #: 3AB [id number] [place] [address] Cardiovascular Laboratory Report INDICATION: The patient is [...] signed informed consent. 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 The right wrist area was prepped and draped in usual fashion. Modified Satnam's test was favorable on the right. Access in the right radial artery was obtained using micropuncture technique. A 6-Sierra Leonean x 11 cm Hydrophilic sheath was advanced, [...] adequate location, this was upsized to a 6-[place]ierra [place]an x 11 cm sheath. Bilateral selective coronary angiography was then performed using 6-Sierra [place]an JL3.5 and JR4 diagnostic catheters. The 6-Sierra [place]an JR4 diagnostic catheter was then used to [...] Stern M.D. Date Trans: 10/11/2020 06:09 Ester/lucia [id number] cc: Hoa Tran M.D. [address], [facility] [address] Neli Stern M.D. Heart Failure/ Transplant Mailstop [address] [facility] [address] Normal The [facility] BASIC METABOLIC PANELon 02-2 Calcium [Mass/Vol] 9.0 mg/dL Normal 8.6-10.3 [facility] Comment on above: Order Comment: No: D o not add to previous draw Performed By: #### 0 0071, 40385 #### [facility] [address] [place] [address], [place] Chloride [Moles/Vol] 103 mmol/L Normal 98-107 [facility] Comment on above: Order Comment: No: D o not add to previous draw Performed By: #### 0 0071, 54008 #### [facility] [address] [place] [address], [place] CO2 [Moles/Vol] 25 mmol/L Normal 21-31 [facility] Comment on above: Order Comment: No: D o not add to previous draw Performed By: #### 0 0071, 31266 #### [facility] [address] [place] [address], [place] Creatinine [Mass/Vol] 0.87 mg/dL Normal 0.70-1.30 [facility] Comment on above: Order Comment: No: D o not add to previous draw Performed By: #### 0 0071, 06108 #### [facility] [address] [place] [address], [place] GFR/1.73 sq M predicted among blacks MDRD (S/P/Bld) [Vol rate/Area] mL/min/{1.73_m2} Normal >60 [facility] Comment on above: Order Comment: No: D o not add to previous draw Performed By: #### 0 0071, 07145 #### [facility] [address] [place] [address], [place] GFR/1.73 sq M predicted among non-blacks MDRD (S/P/Bld) [Vol rate/Area] mL/min/{1.73_m2} Normal >60 [facility] Comment on above: Order Comment: No: D o not add to previous draw Performed By: #### 0 0071, 50717 #### [facility] [address] [place] [address], [place] Glucose [Mass/Vol] 109 mg/dL High 70-100 The [facility] Comment on above: Order Comment: No: D o not add to previous draw Performed By: #### 0 0071, 99302 #### [facility] [address] [place] [address], [place] Potassium [Moles/Vol] 3.5 mmol/L Normal 3.5-5.1 [facility] Comment on above: Order Comment: No: D o not add to previous draw Performed By: #### 0 0071, 34111 #### [facility] [address] [place] [address], [place] Sodium [Moles/Vol] 137 mmol/L Normal 136-145 The [facility] Comment on above: Order Comment: No: D o not add to previous draw Performed By: #### 0 0071, 37003 #### [facility] [address] [place] [address], [place] Urea nitrogen [Mass/Vol] 14 mg/dL Normal 7-25 [facility] Comment on above: Order Comment: No: D o not add to previous draw Performed By: #### 0 0071, 41747 #### [facility] [address] [place] [address], [place] CBC COMPLETE BLOOD COUNTon 0 10-10-2020 Erythrocyte distribution width (RBC) [Ratio] 13.2 % Normal 11.5-15.0 [facility] Comment on above: Order Comment: No: D o not add to previous draw Performed By: #### 3 9130 #### [facility] [address] Hematocrit (Bld) [Volume fraction] 38.2 % Low 39.0-50.0 [facility] Comment on above: Order Comment: No: D o not add to previous draw Performed By: #### 3 5200 #### [facility] [address] [place] [id number], [facility] Hemoglobin (Bld) [Mass/Vol] 12.2 g/dL Low 13.0-17.0 [facility] Comment on above: Order Comment: No: D o not add to previous draw Performed By: #### 3 5200 #### [facility] [address] [facility] [place] [address], [facility] MCH (RBC) [Entitic mass] 28.6 pg Normal 27.0-33.0 [facility] Comment on above: Order Comment: No: D o not add to previous draw Performed By: #### 3 5200 #### [facility] [address] [place] [address], [facility] MCHC (RBC) [Mass/Vol] 31.9 g/dL Low 32.0-35.0 [facility] Comment on above: Order Comment: No: D o not add to previous draw Performed By: #### 3 5200 #### [facility] [address] [facility] [place] [place] [address], [facility] MCV (RBC) [Entitic vol] 89.5 fL Normal 82.0-98.0 [facility] Comment on above: Order Comment: No: D o not add to previous draw Performed By: #### 3 5200 #### [facility] [address] [facility] [place] [address], [facility] Nucleated RBC/100 WBC (Bld) [Ratio] 0 % Normal 0-0 [facility] Comment on above: Order Comment: No: D o not add to previous draw Performed By: #### 3 5200 #### [facility] [address] [place] [address], [facility] PLAT CNT 253 10*3/uL Normal 150-[address] [facility] Comment on above: Order Comment: No: D o not add to previous draw Performed By: #### 3 5200 #### [facility] [address] [place] [address], [facility] RBC (Bld) [#/Vol] 4.27 10*6/uL Normal 4.20-5.70 The [facility] Comment on above: Order Comment: No: D o not add to previous draw Performed By: #### 3 5200 #### [facility] [address] [place] [address], [facility] WBC (Bld) [#/Vol] 10.57 10*3/uL Normal 4.00-10.60 [facility] Comment on above: Order Comment: No: D o not add to previous draw Performed By: #### 3 5200 #### [facility] [address] HEMOGLOBIN A1Con 10-10-2020 HbA1c (Bld) [Mass fraction] 6.0 % Normal 4.0-6.0 [facility] Comment on above: Order Comment: No: D o not add to previous draw Performed By: #### 3 1791 #### [facility] [address] HbA1c (Bld) [Mass fraction] 126 mmol/L Normal [facility] Comment on above: Order Comment: No: D o not add to previous draw Performed By: #### 3 1791 #### [facility] [address] LIPID PROFILEon 10-10-2020 Cholesterol [Mass/Vol] 144 mg/dL Normal 120-200 [facility] Comment on above: Order Comment: No: D o not add to previous draw Result Comment: CHOL ESTEROL REFERENCE RANGE: 20 YEARS AND OLDER CARDIOVASCULAR RISK Less than 200 mg/dl Low Risk 200 to 239 mg/dl Borderline Risk 240 mg/dl and greater High Risk Performed By: #### 0 0071, 91391 #### [facility] [address] [place] [address], [facility] Cholesterol in HDL [Mass/Vol] 30 mg/dL Normal 23-92 [facility] Comment on above: Order Comment: No: D o not add to previous draw Result Comment: Slig ht variation in normal range could be due to gender and/or age. HDL CHOLESTEROL REFERENCE RANGE: 20 years and older Cardiovascular Risk > or =60 mg/dL Desirable 40 TO 59 mg/dL Low Risk <40 mg/dL High Risk Performed By: #### 0 0071, 53960 #### [facility] [address] [facility] [place] [place] [address], [facility] Cholesterol in LDL [Mass/Vol] 73 mg/dL Normal 0-130 [facility] Comment on above: Order Comment: No: D o not add to previous draw Result Comment: LDL IS A CALCULATION LDL IS ONLY VALID IF THE TRIG IS LESS THAN 400. Performed By: #### 0 0071, 39966 #### [facility] [address] [place] [address], [facility] Cholesterol.total/C holesterol in HDL [Mass ratio] 4.8 {ratio} High 0.0-4.5 [facility] Comment on above: Order Comment: No: D o not add to previous draw Performed By: #### 0 0071, 98781 #### [facility] [address] [facility] [place] [place] [address], [facility] NON-HDL CHOLESTEROL 114 mg/dL Normal The [facility] Comment on above: Order Comment: No: D o not add to previous draw Performed By: #### 0 0071, 36978 #### [facility] [address] [place] [address], [facility] Triglyceride [Mass/Vol] 203 mg/dL High 40-149 [facility] Comment on above: Order Comment: No: D o not add to previous draw Result Comment: TRIG LYCERIDE REFERENCE RANGE: 20 YEARS AND OLDER CARDIOVASCULAR RISK LESS THAN 150 mg/dl LOW RISK 150 TO 199 mg/dl BORDERLINE RISK 200 mg/dl AND GREATER HIGH RISK Performed By: #### 0 0071, 48657 #### [facility] [address] [facility] [address] VLDL CHOL 41 mg/dL High 0-40 [facility] Comment on above: Order Comment: No: D o not add to previous draw Performed By: #### 0 0071, 06703 #### [facility] [address] [facility] [address] PROTHROMBIN TIMEon 1 INR Coag (PPP) [Relative time] 1.00 {INR} Normal 0.91-1.16 [facility] Comment on above: Order Comment: No: [...] 1995;108:[id number]. Performed By: #### 5 6101 #### [facility] [address] [facility] [address] PT Coag (PPP) [Time] 13.2 s Normal 12.3-14.8 [facility] Comment on above: Order Comment: No: D o not add to previous draw Result Comment: ALL RESULTS MUST BE INTERPRETED WITH RESPECT TO BLOOD DRAWING ARTIFACT OR DILUTION ERROR OF ANTICOAGULANT AT THE TIME OF SAMPLING. Performed By: #### 5 6101 #### [facility] [address] [facility] [address] BNP (B-TYPE NATRIURETIC PEPT FELISA)on 10-09-2020 Natriuretic peptide B (Bld) [Mass/Vol] 32 pg/mL Normal 0-100 [facility] Comment on above: Order Comment: No: D o not add to previous draw Result Comment: Give n the appropriate clinical setting a BNP result of >100 pg/mL indicates congestive heart failure. Performed By: #### 8 5123 #### [facility] [address] [facility] [address] TROPONIN-Ion 10-09-2020 Troponin I.cardiac [Mass/Vol] 0.00 ng/mL Normal 0.00-0.04 [facility] Comment on above: Order Comment: No: D o not add to previous draw Result Comment: REFE RENCE RANGES: 0.00 - 0.14 ng/ml NEGATIVE 0.15 - 0.25 ng/ml INDETERMINATE > 0.25 ng/ml INDICATIVE OF AN M.I. Performed By: #### 3 5200 #### [facility] [address] [facility] Provider Letter FTMCon 09-20 Provider Letter [facility] Hoa Tran, [address] [place] [address] Re: KARLA MCCOLLUM Date of : 1950 Thank you for your referral of Karla Mccollum who was seen on consultation on Sep 17, 2020, for three skin lesions of concern. I have enclosed my consultation note for your review, and I will be happy to follow Karla should he need further treatment. Sincerely, Karla Dye MD General Surgery [facility] Facesheeton 09-18-2020 Facesheet [id number]:127 [facility] Ambulatory Clinical Summaryo n 09-17-2020 Ambulatory Clinical Summary {[id number] Normal [facility] General Surgery Office/Clini c Noteon 09-17-2020 [...] Primary malignant neoplasm of lung: Father. Normal [facility] Comment on above: Result Comment: Elec tronically Signed By: Karla DYE MD\Date and Time Signed: 09/17/20 16:29 EST Physician Referralon 021 Physician Referral [id number]:127 Normal [facility] Vital Signs Date Time Vital Sign Value Performing Clinician Faci lity 05-30-2024 10:040 Body height 177.8 cm Sadaf Malhotra MD Work Phone: [facility] 05-30-2024 10:29-040 Body mass index (BMI) [Ratio] 36.16 kg/m2 Sadaf Malhotra MD Work Phone: [facility] 05-30-2024 10:29040 Body weight 114.31 kg Sadaf Malhotra MD Work Phone: [facility] 05-30-2024 10:29-0400 Diastolic blood pressure 71 mm[Hg] Sadaf Malhotra MD Work Phone: [facility] 05-30-2024 10:29-0400 Systolic blood pressure [...] Start: 05-15-2024 End: 05-15-2024 ambulatory Hoa Tran [facility] Work Phone: Start: 05-15-2024 End: 05-15-2024 Departed Referred MD Hoa Tran Work Phone: [facility] Start: 12-22-2023 End: 12-22-2023 ambulatory [facility] Start: 12-15-2023 End: 12-15-2023 ambulatory Bismark Redd Facility:[facility] Start: 12-02-2023 End: 12-02-2023 ambulatory JACQUI GUILLEN Not Available Start: 06-18-2023 End: 06-18-2023 ambulatory [facility] Start: 11-24-2022 End: 11-25-[address] NELI STERN Facility: Start: 09-02-2022 End: 09-02-[address] HOA TRAN . Facility:[facility] Start: 12-17-2021 End: 12-18-[address] HOA TRAN . Facility:[facility] Start: 10-09-2020 End: 10-12-2020 Evaluation and management of inpatient HOA TRAN Facility:[facility] Procedures Date Procedure Procedure Detail Performing [...] DERM [address] [place] [id number] Jacqui Guillen MD [address] [place] [address] [facility] Start: 05-30-2024 End: 05-30-2024 Patient encounter procedure 05/30/2024 10:30 AM EDT Office Visit [facility] [address] [place] [id number] Sadaf Malhotra MD [address] [place] [address] Arrived [facility] Comment on above: [...] Medicare (Managed Care) [employer] M [employer] ADVANTAGE [id number] 2023 Medicare [id number] 1958 Medicare [id number] 1958 Unknown [id number] 1950 Unknown [id number] [id number]. 2.647 1950 Unknown [id number] [id number]. 2.593 1950 Unknown [id number] [id number]. 2.593 1950 Unknown [id number] 2.16.840.1.740160.3.579. 2.593 1950 Unknown [id number] 2.16.840.1.046732.3.579. 2.1259 1950 Unknown [id number] [id number]. 2.1259 Unknown [employer] BC/BS [id number] Unknown Insurance No Card [id number] Unknown [id number] [id number]. 2.531 Unknown [id number] [id number]. 2.531 Social History Date Type Detail Facility Start: [facility] Start: 1950 Sex Assigned At Male [facility] Start: 12-02-2023 [facility] Start: 1950 Sex assigned at Not on file [facility] Start: 05-30-2024 Gender identity Not on file [facility] Start: 05-30-2024 Tobacco smoking stat [facility] Ex-smoker [facility] History of tobacco use Current smoker [facility] History of tobacco use Cigarette Smoker [facility] History of tobacco use Passive smoker [facility] Start: 05-30-2024 Tobacco use and exposure Smokeless tobacco non-user [facility] Start: 05-30-2024 Alcoholic beverage intake Current drinker of alcohol (finding) [facility] Start: 05-30-2024 History of Social function [facility] History of Present illness Narrative 05-30-2024 Sadaf Malhotra MD - 05/30/2024 10:30 AM EDT Note Date & Type Note Facility 05-30-2024 History of Presen t illness Narrative Subjective Patient ID: Karla Mccollum is a 74 y.o. male who presents for Neck Mass ( FNA 05/15/24 [facility]) Pt reports that in the course of being evaluated for a left submandibular mass he was found to also have thyroid nodules. US of the submental mass shows a 38x81g0dy mass. FNA c/w a lipoma. Thyroid US shows a [id number] RT TR5 nodule and a 16b22p8ba LT TR4 nodule. Path on each thyroid nodule was Munith 1. No known radiation exposure or family [...] tablet Take 100 mg by mouth Daily qrdynupc-fucxitlri-yzqphtzlstzzlj (Cortisporin) 3.5-26211-4 otic suspension every 8 (eight) hours omeprazole [...] bx, or removal documented in this encounter [facility] Healthcare Progress note 12-22-2023 Note Date & Type Note Facility 12-22-2023 Note [facility] - [facility] Subjective Karla Mccollum is a 73 [...] mg daily. He was admitted to the [facility] on 05/06/2023 with chest pain [...] Disp: 90 tablet, (more content not included)... [facility] Progress note 06-18-2023 Note Date & Type Note Facility 06-18-2023 Note [place] [facility] Subjective Karla Mccollum is a 73 y.o. year old male patient being seen for 6 mo follow up CAD, coronary artery spasm, hypertension, and hyperlipidemia. He was recently admitted to [facility] for chest pain in Apr 2023. [...] mg daily. He was admitted to the [facility] on 05/06/2023 with chest pain [...] Current Outpatient Medications (more content not included)... [facility] Clinical Note 12-17-2021 Note Date & [...] and reported in a separate dictation. The [facility] Evaluation note Note Date & Type Note Facility Evaluation note No assessment information [facility] Work Phone: Evaluation note Note Date [...] Records Found Hospital Course Note MR#: [id number] [facility] Pt. Name: Karla Mccollum Admitted: 10/09/2020 [...] section and content) DATE CREATED AUTHOR 09/22/2020 [facility] DATE CREATED AUTHOR AUTHOR'S ORGANIZ ATION 10/15/2020 [facility] DATE CREATED AUTHOR AUTHOR'S ORGANIZ ATION 11/30/2022 [facility] DATE CREATED AUTHOR AUTHOR'S ORGANIZ ATION 12/24/2023 [facility] DATE CREATED AUTHOR AUTHOR'S ORGANIZ ATION 05/20/2024 [facility] DATE CREATED AUTHOR AUTHOR'S ORGANIZ ATION 06/01/2024 [facility] [employer] Care Teams (unrecognized sec tion and content) Team Status: Inactive Member Role Status Dates oHa Tran MD Attending Provider Active Sta rt: May 15, 2024 End: May 15, 2024 Actuary Relationship Specialty Start Date End Date Hoa Tran MD [address] [place] [address] PCP - General Family Medicine 05/30/24 Actuary Relationship Specialty Start Date End Date Hoa Tran MD [address] [place] [address] PCP - General Family Medicine 05/30/24 Goals [...] BE BASED ON THE PRIMARY CLINICAL RECORDS. [facility] [employer] provides no warranty or guarantee of the accuracy or completeness of information in this document.
== END 2024-10-30 09:39 | disposition home or self-care (01) ==
LOC: US 09:38
PROVIDERS: PCP Family Medicine; Visit Provider Otolaryngology
DX: E04.2 Nontoxic multinodular goiter (principal); R22.1 Localized swelling, mass and lump, neck
CPT/HCPCS: 76536

== ENCOUNTER 2025-04-23 08:44 | Outpatient (OUT) | payer MEDICARE, SELFPAY ==
--- NOTE | 2025-04-23 08:46 | US_ITS ---
The [address] [address] Patient Name: KARLA CUENCA MRN: [id number] date: 1950 Sex: M Assigned Patient Location: [place] Current Patient Location: [place] Accession/Order Number: [id number] Exam Date: 04/23/2025 08:47 Report Date: 04/23/2025 09:35 At the request of: RODRI MALHOTRA MD Procedure: US thyroid THYROID ULTRASOUND COMPARISON: 10/30/2024 and 05/05/2024 CLINICAL DATA: Follow-up multinodular goiter The right thyroid lobe measures 4.4 x 1.5 x 1.8 cm. The left lobe measures 4.1 x 1.3 x 1.6 cm. The isthmus measures 6 mm. Thyroid echotexture is mildly heterogeneous. At the superior pole the right, there is still a hypoechoic nodule measuring 4 x 5 x 5 mm. A nodule at the lower pole on the prior is not seen today. On the left, additional small hypoechoic nodules are again seen. There are 2 hypoechoic nodules in close proximity the superior pole measuring 7 x 4 x 4 mm and 4 x 3 x 4 mm . At the inferior pole, there is another hypoechoic nodule that measures 7 x 5 x 5 mm. US/US thyroid IMPRESSION: CONTINUED SUBCENTIMETER BILATERAL THYROID NODULES, GREATER ON THE LEFT. Impression dictated by: Tonie Baldwin M.D. 04/23/2025 9:35 AM Dictation Location: [place] [address] Electronically authenticated by: [id number] Y Date: 04/23/2025 09:35
--- OUTSIDE RECORDS SUMMARY | 2025-04-23 08:51 | XMS_ITS | CCD ---
Author Organization [facility] Care Team Providers Care Electrical And Instrument Technician Name Role Phone HOA TRAN Primary Care Unavailable UNKNOWN, PROVIDER Referring Unavailable GRISELDA, HANI Admitting Unavailable GRISELDA HANI Attending Unavailable [place] Procedure Practitioner Unavailab le UNKNOWN, PROVIDER Surgeon Unavailable SNEHAL ., DR CAMARA Primary Care Unavailable DIAB ., KWADWO Admitting Unavailable DIAB ., KWADWO Attending Unavailable Bismark Redd Consulting Unavailable DIAB ., KWADWO Consulting Unavailable MOUKAKELLY, DR QUINTEROS Admitting Unavailable MOUKAKELLY, DR QUINTEROS Attending Unavailable SNEHAL ., DR CAMARA Primary Care Unavailable MORAIN, DR QUINTEROS Consulting Unavailable SNEHAL ., DR CAMARA Admitting Unavailable SNEHAL ., DR CAMARA Attending Unavailable SNEHAL ., DR CAMARA Primary Care Unavailable SNEHAL ., DR CAMARA Consulting Unavailable Bismark Redd Consulting Unavailable MD Hoa Tran Attending Provider Hoa Tran Attending Unavailable Hoa Tran Admitting Unavailable Bismark Redd V Attending Unavailable Bismark Redd V Admitting Unavailable Hoa Tran MD Primary Care Provider [phone] NELI STERN Attending Unavailable NELI STERN Attending Unavailable Hoa Tran MD Primary Care Provider SADAF MALHOTRA Attending Unavailable JACQUI GUILLEN Attending Unavailable SADAF MALHOTRA Attending Unavailable HOA TRAN Referring Unavailable SADAF MALHOTRA Attending Unavailable Medications Current Medications Medication Drug Class(es) Dates Sig (Normalized) Sig (Original) amLODIPine 10 mg oral tablet (10 sources) Dihydropyridine Calcium Channel Mario take 1 tablet by mouth once daily amLODIPine (Norvasc) 10 MG tablet Take 10 mg by mouth Daily Active aspirin 81 mg delayed release oral tablet (10 sources) Platelet Aggregation Inhibitor, Nonsteroidal Anti-inflammatory Drug aspirin 81 MG EC tablet in the morning. Active atorvastatin 40 mg oral tablet (10 sources) HMG-CoA Reductase Inhibitor take 1 tablet by mouth in the morning atorvastatin (Lipitor) 40 MG tablet Take 40 mg by mouth in the morning. Active ciclopirox 10 mg/ml medicated shampoo (13 sources) Start: 12-04-2024 Ciclopirox 1 % shampoo Indications: Other seborrheic dermatitis Lather on wet hair and slade, leave on 5 min, rinse 2-3 x week, 30 day supply 120 mL 11 12/04/2024 Active Start: 12-04-2024 ciclopirox (Lo prox) 0.77 % cream Indications: Other seborrheic dermatitis Apply thin layer to affected areas on the face once a day, 30 day supply 90 g 11 12/04/2024 Active Start: 12-02-2023 End: 05-30-2024 ciclopirox (Loprox) 0.77 % c ream Indications: Other seborrheic dermatitis Apply thin layer to affected area once a day, 30 day supply 30 g 12/02/2023 05/30/2024 Discontinued (Therapy completed) ciprofloxacin 3 mg/ml / dexamethasone 1 mg/ml otic suspension (2 sources) Corticosteroid, Quinolone Antimicrobial Start: 04-18-2025 End: 04-28-2025 ciprofloxacin-dexAMETHasone (CiproDEX) otic suspension Indications: Chronic myringitis of left ear , Other infective chronic otitis externa of left ear Administer 4 drops into the left ear in the morning and 4 drops before bedtime. Do all this for 10 days. 7.5 mL 04/18/2025 04/28/2025 Active clotrimazole 10 mg/ml topical solution (2 sources) Azole Antifungal Start: 04-18-2025 clotrimazole (Lotrimin) 1 % external solution Indications: Chronic myringitis of left ear , Other infective chronic otitis externa of left ear 4 drops to left ear 2 times daily for 10 days 10 mL 1 04/18/2025 Active Start: 04-18-2025 clotrimazole ( Lotrimin) 1 % external solution Indications: Chronic myringitis of left ear , Other infective chronic otitis externa of left ear 4 drops to left ear 2 times daily for 10 days 10 mL 1 04/18/2025 Active ezetimibe 10 mg oral tablet (10 sources) Dietary Cholesterol Absorption Inhibitor Start: 08-17-2023 ezetimibe (Zetia) 10 MG tablet 08/17/2023 Active fenofibrate 145 mg oral tablet (10 sources) Peroxisome Proliferator Receptor alpha Agonist take 1 tablet by mouth once daily fenofibrate (Tricor) 145 MG tablet Take 145 mg by mouth Daily Active fluconazole 100 mg oral tablet (2 sources) Azole Antifungal Start: 04-18-2025 fluconazole (Diflucan) 100 MG tablet Indications: Chronic myringitis of left ear , Other infective chronic otitis externa of left ear 2 pills day one and then one pill daily for 13 days 15 tablet 04/18/2025 Active Start: 04-18-2025 fluconazole (D iflucan) 100 MG tablet Indications: Chronic myringitis of left ear , Other infective chronic otitis externa of left ear 2 pills day one and then one pill daily for 13 days 15 tablet 04/18/2025 Active hydrocortisone 10 mg/ml / neomycin 3.5 mg/ml / polymyxin b 44383 unt/ml otic suspension (10 sources) Aminoglycoside Antibacterial, Polymyxin-class Antibacterial, Corticosteroid Start: 07-01-2023 End: 04-18-2025 dzbvkejd-aobqbybtq-wpcxnluvd isone (Cortisporin) 3.5-75641-1 otic suspension every 8 (eight) hours 07/01/2023 04/18/2025 Discontinued (Therapy completed) irbesartan 150 mg oral tablet (10 sources) Angiotensin 2 Receptor Mario take 1 tablet by mouth once daily irbesartan (Avapro) 150 MG tablet Take 150 mg by mouth Daily Active 24 hr isosorbide mononitrate 120 mg extended release oral tablet (10 sources) Nitrate Vasodilator Start: 08-17-2023 isosorbide mononitrate ER (I mdur) 120 MG 24 hr tablet Take 120 mg by mouth 08/17/2023 Active 24 hr metoprolol succinate 100 mg extended release oral tablet (10 sources) beta-Adrenergic Mario take 1 tablet by mouth once daily metoprolol succinate XL (Toprol-XL) 100 MG 24 hr tablet Take 100 mg by mouth Daily Active omeprazole 40 mg delayed release oral capsule (10 sources) Proton Pump Inhibitor omeprazole (PriLOSEC ) [address] capsule Active oxaprozin 600 mg oral tablet (3 sources) Nonsteroidal Anti-inflammator y Drug End: 05-30-2024 take 1 tablet by mouth every twenty-f our hours as needed oxaprozin (Daypro) 600 MG tablet 600 mg Daily as needed 05/30/2024 Discontinued 12 hr ranolazine 1000 mg extended release oral tablet (10 sources) Anti-anginal take 1 tablet by mouth every twelve hours in the morning ranolazine (Ranexa) 1000 MG 12 hr tablet Take 1 tablet by mouth in the morning and 1 tablet before bedtime. Active triamcinolone acetonide 1 mg/ml topical cream (8 sources) Corticosteroid Start: 12-04-2024 triamcinolone (Kenalog) 0.1 % cream Indications: Stasis dermatitis of both legs Apply to affected areas on the legs bid when flared. Avoid the face, armpits, and groin 80 g 2 12/04/2024 Active Start: 07-01-2023 End: 05-30-2024 triamcinolone (Kenalog) 0.1 % cream 1 Application every 12 (twelve) hours 07/01/2023 05/30/2024 Discontinued (Therapy completed) Problems Active Problems Problem Classification Problem Date Documented Date Episodic/Chronic 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; 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] Onset: 11-20-2024 Chronic Coronary atherosclerosis and other heart disease (11 sources) Coronary atherosclerosis due to lipid rich plaque; Translations: [Angina pectoris with documented spasm] Onset: 12-18-2021 Chronic Disorders of lipid metabolism (19 sources) Mixed hyperlipidemia; Translations: [Pure hypercholesterolemia, unspecified] Onset: 12-06-2017 Chronic Diverticulosis and diverticulitis (6 sources) Diverticular disease; Translations: [Diverticulosis of intestine, part unspecified, without perforation or abscess without bleeding] Onset: 09-04-2022 11-08-2024 Chronic Esophageal disorders (7 sources) Gastro-esophageal reflux disease without esophagitis; Translations: [Gastroesophageal reflux disease] Onset: 12-06-2017 11-08-2024 Chronic Essential hypertension (9 sources) Essential (primary) hypertension; Translations: [Essential hypertension] Onset: 12-06-2017 Chronic Gout and other crystal arthropathies (9 sources) Gouty tophus; 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, unspecified, with tophus (tophi)] Onset: 05-30-2024 05-30-2024 Chronic Hypertension with complications and secondary hypertension (6 sources) Hypertensive left ventricular hypertrophy; Translations: [Hypertensive heart disease without heart failure] Onset: 09-04-2022 11-08-2024 Chronic Other aftercare (1 source) manager philosophy (current) use of aspirin; Translations: [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 DYNAMICS 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 CURRENT USE OF ASPIRIN] Onset: 09-03-2022 Episodic Other aftercare (1 source) Other longterm (current) drug therapy; Translations: [OTH [employer]OS[employer]FT DYNAM[employer] CONSULTANT CURRENT DRUG THERAPY] Onset: 09-03-2022 Episodic Other and unspecified benign neoplasm (2 sources) Melanocytic nevus of trunk; Translations: [Melanocytic nevi of trunk] 12-04-2024 Episodic Other connective tissue disease (6 sources) History of total arthroplasty of left shoulder; Translations: [Presence of left artificial shoulder joint] Onset: 10-27-2021 11-08-2024 Chronic Other diseases of veins and lymphatics (2 sources) Disorder of vein of lower extremity; Translations: [Venous insufficiency (chronic) (peripheral)] 12-04-2024 Episodic Other ear and sense organ disorders (2 sources) Chronic left myringitis; Translations: [Chronic myringitis, left ear] 04-18-2025 Chronic Other ear and sense organ disorders (2 sources) Chronic infective otitis externa; Translations: [Other infective otitis externa, left ear] 04-18-2025 Episodic Other inflammatory condition of skin (2 sources) Seborrheic dermatitis; Translations: [Other seborrheic dermatitis] 12-04-2024 Episodic Other injuries and conditions due to external causes (2 sources) Foreign body in left ear; Translations: [Foreign body in left ear, initial encounter] 04-18-2025 Episodic Other skin disorders (2 sources) Actinic keratosis; Translations: [Actinic keratosis] 12-04-2024 Episodic Other skin disorders (2 sources) Lentiginosis; Translations: [Other melanin hyperpigmentation] 12-04-2024 Episodic Residual codes; unclassified (1 source) Sleep apnea, unspecified; Translations: [SLEEP APNEA UNSPECIFIED] Onset: 09-03-2022 Chronic Residual codes; unclassified (1 source) Acquired absence of other specified parts of digestive tract; Translations: [ACQ ABSENCE OTH PART DIGESTV TRACT] Onset: 09-03-2022 Episodic Thyroid disorders (11 sources) Non-toxic multinodular goiter; Translations: [Nontoxic multinodular goiter] Onset: 05-30-2024 05-30-2024 Chronic Unclassified (1 source) CONTACT W/AND (SUSP) EXPOS COVID-19; Translations: [CONTACT W/AND (SUSP) EXPOS COVID-19] Onset: 09-03-2022 Past or Other Problems Problem Classification Problem Date Documented Date Episodic/Chronic Noninfectious gastroenteritis (6 sources) Gastroenteritis; Translations: [Noninfective gastroenteritis and colitis, unspecified] Onset: 09-04-2022 11-08-2024 Episodic Nonspecific chest pain (10 sources) Chest pain, unspecified; Translations: [Other chest pain] Onset: 09-02-2022 Episodic Other lower respiratory disease (4 sources) Dyspnea, unspecified; Translations: [DYSPNEA UNSPECIFIED] Onset: 12-17-2021 Episodic Other screening for suspected conditions (not mental disorders or infectious disease) (6 sources) Cardiovascular stress test abnormal; Translations: [Abnormal result of other cardiovascular function study] Onset: 09-04-2022 11-08-2024 Episodic Other skin disorders (11 sources) Mass of neck; Translations: [Localized swelling, mass and lump, neck] Onset: 05-30-2024 05-30-2024 Episodic Results Test Name Value Interpretation Reference Range Facility No Panel InformationOrdered By: Nery Goncalves on 12-04-2024 [facility] Office Visiton 11-20-2024 Follow-up visit [id number] Karla Mccollum 1950 M Date Provider Department Center 11/20/2024 NELI THRASHER [facility] Family History Problem Relation Age of Onset Hypertension Mother Cancer Father Family Status - Relation Status Age at Mother Father Sister Alive Brother Alive Level of Service:09918 [place] OFFICE/OUTPATIENT ESTABLISHED LOW MDM 20 MIN Normal [facility] US Thyroid glandon [address] [address] Ultrasound Report Signed Patient: KARLA MCCOLLUM MR#: [id number] : 1950 Acct:[id number] Age/Sex: 74 / M ADM Date: 10/30/24 Loc: US Attending Dr: Sadaf Malhotra M.D. Ordering Physician: Sadaf Malhotra M.D. Date of Service: 10/30/24 Procedure(s): US thyroid Accession Number(s): [id number] cc: Hoa Tran M.D.; Sadaf Malhotra M.D. [place] [id number] Patient Name: KARLA MCCOLLUM MRN: [id number] date: 1950 Sex: M Assigned Patient Location: US Current Patient Location: US Accession/Order Number: [id number] Exam Date: 10/30/2024 10:53 Report Date: 10/30/2024 10:57 At the request of: SADAF MALHOTRA MD Procedure: US thyroid Thyroid ultrasound Reason for exam: Multinodular goiter. Comparison: Thyroid ultrasound 05/05/2024. Technique: Grayscale and color Doppler images of the thyroid gland were obtained. Findings: The right lobe measures 4.5 x 1.4 x 1.9 cm. The left lobe measures 3.7 x 1.6 x 1.7 cm. The isthmus measures 5 mm. Hypoechoic nodule inferior aspect of the right lobe measuring 6 x 5 x 5 mm. 3 hypoechoic nodules are seen involving the left lobe largest measuring 6 x 5 x 4 mm involving the mid pole. No nodules are noted involving the isthmus. US/US thyroid Impression: Ultrasound evidence of multinodular thyroid gland largest measurable nodule involving the inferior pole of the right lobe measuring 6 x 5 x 5 mm. The nodules appear grossly unchanged in size when compared to the prior study from 2023. Repeat ultrasound in one year suggested. Impression dictated by: Dylan Stoner Jr., D.O.10/30/2024 10:57 AM Dictation Location: [place] [address] Electronically authenticated by: [id number] Y Date: 10/30/2024 10:57 Dictated By: Dylan Stoner M.D. Signed By: 10/30/24 1100 DD/ 1057 TD/TT: Retail Advertising Account Executive: [facility] Radiology, Radiologist, MD - 10/30/2024 [place] [address] Ultrasound Report Signed Patient: KARLA MCCOLLUM MR#: [id number] : 1950 Acct:[id number] Age/Sex: 74 / M ADM Date: 10/30/24 Loc: US Attending Dr: Sadaf Malhotra M.D. Ordering Physician: Sadaf Malhotra M.D. Date of Service: 10/30/24 Procedure(s): US thyroid Accession Number(s): [id number] cc: Hoa Tran M.D.; Sadaf Malhotra M.D. The [address] [address] Patient Name: KARLA MCCOLLUM MRN: [facility]:[id number] date: 1950 Sex: M Assigned Patient Location: US Current Patient Location: US Accession/Order Number: [id number] Exam Date: 10/30/2024 10:53 Report Date: 10/30/2024 10:57 At the request of: SADAF MALHOTRA MD Procedure: US thyroid Thyroid ultrasound Reason for exam: Multinodular goiter. Comparison: Thyroid ultrasound 05/05/2024. Technique: Grayscale and color Doppler images of the thyroid gland were obtained. Findings: The right lobe measures 4.5 x 1.4 x 1.9 cm. The left lobe measures 3.7 x 1.6 x 1.7 cm. The isthmus measures 5 mm. Hypoechoic nodule inferior aspect of the right lobe measuring 6 x 5 x 5 mm. 3 hypoechoic nodules are seen involving the left lobe largest measuring 6 x 5 x 4 mm involving the mid pole. No nodules are noted involving the isthmus. US/US thyroid Impression: Ultrasound evidence of multinodular thyroid gland largest measurable nodule involving the inferior pole of the right lobe measuring 6 x 5 x 5 mm. The nodules appear grossly unchanged in size when compared to the prior study from 2023. Repeat ultrasound in one year suggested. Impression dictated by: Dylan Stoner Jr., D.OIra10/30/2024 10:57 AM Dictation Location: [place] [address] Electronically authenticated by: [id number] Y Date: 10/30/2024 10:57 Dictated By: Dylan Stoner M.D. Signed By: 10/30/24 1100 DD/ 1057 TD/TT: Retail Advertising Account Executive: [facility] Radiology Study observation (narrative) [facility] US Thyroid glandOrdered By: Radiologist Radiology on 10-30-2024 [facility] [employer] Work Phone: Rudolph 05-15-2024 L Specimen: [id number] Received: 05/17/24 Status: SOUT Req Num: [id number] Spec Type: Cytology Subm Dr: Hoa Tran MD Tissues: A FNA SLIDES NOPATH (RT THY) B FNA SLIDES NOPATH (LT THY) Procedures: Cyto Int and Re/2, PAPSTN/10 Age/ Patient Sex Location Account Attending Physician Karla Mccollum/M LABELL [id number] Hoa Tran MD SPEC NUM: [id number] RECD: 05/17/24 STATUS: SOUT REQ NUM: [id number] SEAN: 05/15/24 DR: Hoa Tran MD ENTERED: 05/17/[address] [facility] [address]: Elisha Perason MD SPEC TYPE: Cytology DEPT: GREG OHRADHA ENTERED BY: [id number] RECV BY: [id number] ORDERED: Cyto Int and Re/2, PAPSTN/10 ORDERED: Cyto Int and Re/2, PAPSTN/10 Pathological Diagnosis A. Right thyroid, inferior nodule, fine needle aspiration: - Unsatisfactory for evaluation due to scant cellularity. - Scant watery colloid, non-diagnostic ([place] Category:I). B. Left thyroid, inferior nodule, fine needle aspiration: - Unsatisfactory for evaluation due to scant cellularity. - Scant watery colloid and blood, non-diagnostic ([place] Category:I). Comment: Recommend repeat thyroid FNA as clinically indicated. Clinical Information Bilateral thyroid nodules Gross Description A. (RT) Received fixed in Cytolyt is <1 ml colorless clear fluid for cytology and labeled as right thyroid nodule inferior. ThinPrep preparations are prepared for microscopic examination. Also received are 4 spray fixed smeared slides for pap and a Veracyte vial stored at -20 microscopic examination. (YC/nh) Specimen: [id number] Received: 05/17/24 Status: EDWINA Spears Num: [id number] Spec Type: Cytology Subm Dr: Hoa Tran MD Tissues: A FNA SLIDES NOPATH (RT THY) B FNA SLIDES NOPATH (LT THY) Procedures: Cyto Int and Re/2, PAPSTN/10 Patient: ChunKarla Celestine [id number] (Continued) Specimen: [id number] Received: 05/17/24 (Continued) Gross Description (Continued) Signed (signature on file) Rajseh Ridley MD 05/18/24 1609 Specimen: [id number] Received: 05/17/24 Status: EDWINA Spears Num: [id number] Spec Type: Cytology Subm Dr: Hoa Tran MD Tissues: A FNA SLIDES NOPATH (RT THY) B FNA SLIDES NOPATH (LT THY) Procedures: Cyto Int and Re/2, PAPSTN/10 Patient: Karla Mccollum [id number] (Continued) Specimen: [id number] Received: 05/17/24 (Continued) Gross Description (Continued) B. (LT) Received fixed in Cytolyt is <1 ml colorless clear fluid for cytology and labeled as left thyroid nodule inferior. ThinPrep preparations are prepared for microscopic examination. Also received are 4 spray fixed smeared slides for pap and a Veracyte vial stored at -20 for microscopic examination. (YC/me) Microscopic Description A B: Microscopic examination is performed. CPT Codes 90517 x2, 73872 x2 Specimen: [id number] Received: 05/17/24 Status: EDWINA Spears Num: [id number] Spec Type: Cytology Subm Dr: Hoa Tran MD Tissues: A FNA SLIDES NOPATH (RT THY) B FNA SLIDES NOPATH (LT THY) Procedures: Cyto Int and Re/2, PAPSTN/10 Patient: Karla Mccollum [id number] (Continued) Signed (signature on file) Rajesh Ridley MD 05/18/24 1609 Normal [facility] Office Visiton 12-22-2023 Follow-up visit [id number] Karla Mccollum 1950 Date Provider Department Center 12/22/2023 BillNELI STERN VERA [facility] Family History Problem Relation Age of Onset Hypertension Mother Family Status - Relation Status Age at Mother Level of Service:36168 [place] OFFICE/OUTPATIENT ESTABLISHED LOW MDM 20 MIN Normal [facility] Rudolph 12-15-2023 L Specimen: Received: 12/16/23 Status: EDWINA Spears Num: [id number] Spec Type: Cytology Subm Dr: Bismark Redd MD Tissues: A FNA SLIDES NOPATH (LT SUBMENT MASS) Procedures: HE/2, Cyto Int and Re, PAPSTN/7 Age/ Patient Sex Location Account Attending Physician Karla Mccollum 73/M LABELL [id number] Bismark Redd MD SPEC NUM: RECD: 12/16/23 STATUS: EDWINA REQ NUM: [id number] SEAN: 12/15/23- SUBM DR: Bismark Redd MD ENTERED: 12/16/[address]: Lili,Lab Hoa Tran MD SPEC TYPE: Cytology DEPT: GREG NCYT ENTERED BY: [id number] RECV BY: [id number] ORDERED: HE/2, Cyto Int and Re, PAPSTN/7 [...] to be stained pap are additionally received. (CC/me) CPT Codes 67312 Specimen: [id number] Received: 12/16/23-1403 Status: EDWINA Spears Num: [id number] Spec Type: Cytology Subm Dr: Bismark Redd MD Tissues: A FNA SLIDES NOPATH (LT SUBMENT MASS) Procedures: HE/2, Cyto Int and Re, PAPSTN/7 Patient: Karla Mccollum [id number] (Continued) Signed (signature on file) Bismark Quiñonez MD 12/17/23 1054 Normal [facility] LIPID PROFILEon 11-24-2022 CHOL-HDL RATIO NORM SEE BELOW Normal [facility] Comment on above: Result Comment: 3.3 - 4.4 LOW RISK 4.4 - 7.1 AVERAGE RISK 7.1 - 11.0 MODERATE RISK >11.0 HIGH RISK Performed By: #### L IPID #### [facility] [address] [place] [address] [address] Paige Tee Cholesterol [Mass/Vol] 151 mg/dL Normal <=200 [facility] Comment on above: Performed By: #### L IPID #### [facility] [address] [place] [address] [address] Paieg Tee Cholesterol in HDL [Mass/Vol] 40 mg/dL Normal 40-60 [facility] Comment on above: Performed By: #### L IPID #### [facility] [address] [place] [address] [address] Paige Tee Cholesterol in LDL [Mass/Vol] 87.4 mg/dL Normal [facility] Comment on above: Performed By: #### L IPID #### [facility] [address] [address] [address] Paige Tee Cholesterol.total/Chol esterol in HDL [Mass ratio] 3.8 {ratio} Normal [facility] Comment on above: Performed By: #### L IPID #### [facility] [address] [place] [address] [address] Paige Tee HDL NORMAL > or = 60 mg/dl - LOW CARDIOVASCULAR RISK <40 mg/dl - HIGH CARDIOVASCULAR RISK Normal [facility] Comment on above: Performed By: #### L IPID #### [facility] [address] [address] [address] Paige Tee LDL CALC NORMAL SEE BELOW Normal [facility] Comment on above: Result Comment: <100 mg/dl OPTIMAL 100 - 129 mg/dl NEAR OR ABOVE OPTIMAL 130 - 159 mg/dl BORDERLINE HIGH 160 - 189 mg/dl HIGH >190 mg/dl VERY HIGH Performed By: #### L IPID #### [facility] [address] [address] [address] Paige Tee Triglyceride [Mass/Vol] 118 mg/dL Normal <=150 [facility] Comment on above: Performed By: #### L IPID #### [facility] [address] [address] [address] Paige Tee VLDL CALC 23.6 mg/dL Normal [facility] Comment on above: Performed By: #### L IPID #### [facility] [address] [address] [address] Paige Tee CBC AUTO DIFFon 09-02-2022 BASO # 0.1 103/ul Normal 0.0-0.1 [facility] Comment on above: Performed By: #### C BC #### [facility] [address] [place] [address] Dr. Paige Tee Basophils/100 WBC (Bld) 0.6 % Normal 0.2-2.0 [facility] Comment on above: Performed By: #### C BC #### [facility] [address] [place] [address] Dr. Paige Tee EO # 0.4 103/ul Normal 0.0-0.7 [facility] Comment on above: Performed By: #### C BC #### [facility] [address] [place] [address] Dr. Paige Tee Eosinophils/100 WBC (Bld) 4.0 % Normal 0.9-7.0 [facility] Comment on above: Performed By: #### C BC #### [facility] [address] [place] [address] Dr. Paige Tee Erythrocyte distribution width (RBC) [Ratio] 13.8 % Normal 11.0-15.0 [facility] Comment on above: Performed By: #### C BC #### [facility] [address] [place] [address] Dr. Paige Tee Hematocrit (Bld) [Volume fraction] 35.9 % Critically low 42.0-54.0 [facility] Comment on above: Performed By: #### C BC #### [facility] [address] [place] [address] Dr. Paige Tee Hemoglobin (Bld) [Mass/Vol] 11.9 g/dL Critically low 14.0-18.0 [facility] Comment on above: Performed By: #### C BC #### [facility] [address] [place] [address] Dr. Paige Tee IG # 0.04 10e3/ul Critically high 0.00-0.03 [facility] Comment on above: Performed By: #### C BC #### [facility] [facility] [address] [place] [address] Dr. Paige Tee IG % 0.4 % Normal 0.0-0.5 [facility] Comment on above: Performed By: #### C BC #### [facility] [address] [place] [address] Dr. Paige Tee LYMPH # 3.2 103/ul Normal 1.2-3.8 [facility] Comment on above: Performed By: #### C BC #### [facility] [address] [place] [address] Dr. Paige Tee Lymphocytes/100 WBC (Bld) 30.0 % Normal 20.5-60.0 [facility] Comment on above: Performed By: #### C BC #### [facility] [address] [place] [address] Dr. Paige Tee MANUAL DIFF REQ NO Normal [facility] Comment on above: Performed By: #### C BC #### [facility] [address] [place] [address] Dr. Paige Tee MCH (RBC) [Entitic mass] 27.9 pg Normal 25.9-34.0 [facility] Comment on above: Performed By: #### C BC #### [facility] [address] [place] [address] Dr. Paige Tee MCHC (RBC) [Mass/Vol] 33.1 g/dL Normal 29.9-35.2 [facility] Comment on above: Performed By: #### C BC #### [facility] [address] [place] [address] Dr. Paige Tee MCV (RBC) [Entitic vol] 84.3 fL Normal 80.0-94.0 [facility] Comment on above: Performed By: #### C BC #### [facility] [address] [place] [address] Dr. Paige Tee MONO # 0.8 103/ul Normal 0.3-0.8 [facility] Comment on above: Performed By: #### C BC #### [facility] [address] [place] [address] Dr. Paige Tee Monocytes/100 WBC (Bld) 7.5 % Normal 1.7-12.0 [facility] Comment on above: Performed By: #### C BC #### [facility] [address] [place] [address] Dr. Paige Tee NEUT # 6.2 103/ul Normal 1.4-6.5 [facility] Comment on above: Performed By: #### C BC #### [facility] [address] [place] [address] Dr. Paige Tee Neutrophils/100 WBC (Bld) 57.5 % Normal 43.0-75.0 [facility] Comment on above: Performed By: #### C BC #### [facility] [address] [place] [address] Dr. Paige Tee Platelet mean volume (Bld) [Entitic vol] 9.5 fL Normal 9.5-13.5 [facility] Comment on above: Performed By: #### C BC #### [facility] [address] [place] [address] Dr. Paige Tee PLT 314 103/ul Normal 150-450 [facility] Comment on above: Performed By: #### C BC #### [facility] [address] [place] [address] Dr. Paige Tee RBC 4.26 106/ul Critically low 4.70-6.[address] [facility] Comment on above: Performed By: #### C BC #### [facility] [address] [place] [address] Dr. Paige Tee WBC 10.8 103/ul Normal 4.0-11.0 [facility] Comment on above: Performed By: #### C BC #### [facility] [address] [place] [address] Dr. Paige Tee Covid-19 PCR ([facility])on 08-16 SARS-CoV-2 (COVID-19) RNA UMER+probe Ql (Unsp spec) Not detected Normal NOT DETECTED [facility] Comment on above: Result Comment: [...] for this test is supported by the Public Health Social Worker of Health and Human Service's declaration that [...] used). Performed By: #### C VDTB #### [facility] [address] [place] [address] Dr. Paige Tee PROF CHEM 8 (BAS METB)on Anion gap [Moles/Vol] 13.7 mmol/L Normal [facility] Comment on above: Performed By: #### H TAMMI, BMP #### [facility] [address] [place] [address] Dr. Paige Tee Calcium [Mass/Vol] 9.1 mg/dL Normal 8.5-10.1 [facility] Comment on above: Performed By: #### H TAMMI, BMP #### [facility] [address] [place] [address] Dr. Paige Tee Chloride [Moles/Vol] 104 mmol/L Normal 98-107 [facility] Comment on above: Performed By: #### H TAMMI, BMP #### [facility] [address] [place] [address] Dr. Paige Tee CO2 [Moles/Vol] 24.4 mmol/L Normal 21.0-32.0 [facility] Comment on above: Performed By: #### H TAMMI, BMP #### [facility] [address] [place] [address] Dr. Paige Tee Creatinine [Mass/Vol] 1.11 mg/dL Normal 0.70-1.30 [facility] Comment on above: Performed By: #### H TAMMI, BMP #### [facility] [address] [address] [address] Paige Tee EGFR-AF LAO >60 Normal >=60 [facility] Comment on above: Performed By: #### H STROPN, BMP #### [facility] [address] [address] [address] Paige Tee EGFR-NON AF LAO >60 Normal >=60 [facility] Comment on above: Performed By: #### H STROPN, BMP #### [facility] [address] [address] [address] Paige Tee Glucose [Mass/Vol] 115 mg/dL Critically high 74-106 [facility] Comment on above: Performed By: #### H STROPN, BMP #### [facility] [address] [address] [address] Paige Tee Potassium [Moles/Vol] 4.1 mmol/L Normal 3.5-5.1 [facility] Comment on above: Performed By: #### H STROPN, BMP #### [facility] [address] [address] [address] Paige Tee Sodium [Moles/Vol] 138 mmol/L Normal 136-145 [facility] Comment on above: Performed By: #### H STROPN, BMP #### [facility] [address] [address] [address] Paige Tee Urea nitrogen [Mass/Vol] 20.0 mg/dL Critically high 7.0-18.0 [facility] Comment on above: Performed By: #### H STROPN, BMP #### [facility] [address] [address] [address] Paige Tee Urea nitrogen/Creatinine [Mass ratio] 18.0 mg/mg Normal [facility] Comment on above: Performed By: #### H STROPN, BMP #### [facility] [address] [address] [address] Paige Tee TROPONIN, HIGH SENSITIVITYon 09-02-2022 HSTROP 4.1 pg/mL Normal 4.0-76.1 [facility] Comment on above: Result Comment: CUT- OFF POINTS HAVE BEEN ESTABLISHED BASED ON THE FOURTH UNIVERSAL DEFINITIONS OF MYOCARDIAL INFARCTION. THE UPPER REFERENCE LIMIT (URL) OF TROPONIN, DEFINED THE 99TH PERCENTILE OF cTnI DISTRIBUTION IN A REFERENCE POPULATION, HAS BEEN CONFIRMED THE DECISION THRESHOLD FOR TX DIAGNOSIS. Performed By: #### H TAMMI #### [facility] [address] [address] [address] Paige Tee HSTROP 4.5 pg/mL Normal 4.0-76.1 [facility] Comment on above: Result Comment: CUT- OFF POINTS HAVE BEEN ESTABLISHED BASED ON THE FOURTH UNIVERSAL DEFINITIONS OF MYOCARDIAL INFARCTION. THE UPPER REFERENCE LIMIT (URL) OF TROPONIN, DEFINED THE 99TH PERCENTILE OF cTnI DISTRIBUTION IN A REFERENCE POPULATION, HAS BEEN CONFIRMED THE DECISION THRESHOLD FOR TX DIAGNOSIS. Performed By: #### H TAMMI, BMP #### [facility] [address] [address] [address] Paige Tee XR CHEST 1 Von 09-02-2022 XR CHEST 1 V EXAMINATION: XR CHEST 1 V HISTORY: CHEST PAIN, UNSPECIFIED COMPARISON: [...] by: BISMARK REDD Date: 2022-09-02 12:29 Normal [facility] STRESS/REST MULTIon 12-17 NM STRESS/REST MULTI Patient: KARLA MCCOLLUM Exam Date: 12/17/2021 : 1950 Gender:M Ordering : DR HOA TRAN . Admission #: [id number] Family : Order #: [id number] CLICK HERE TO VIEW EXAM RADIOLOGY REPORT [...] Redd MD on 12/18/2021 at 09:10 Normal [facility] BASIC METABOLIC PANELon 02- Calcium [Mass/Vol] 8.9 mg/dL Normal 8.6-10.3 [facility] Comment on above: Order Comment: No: D o not add to previous draw Performed By: #### 0 0071 #### [facility] [address] [place] [address], [facility] Chloride [Moles/Vol] 105 mmol/L Normal 98-107 [facility] Comment on above: Order Comment: No: D o not add to previous draw Performed By: #### 0 0071 #### [facility] [address] [place] [address], [place] CO2 [Moles/Vol] 25 mmol/L Normal 21-31 [facility] Comment on above: Order Comment: No: D o not add to previous draw Performed By: #### 0 0071 #### [facility] [address] [place] [address], [place] Creatinine [Mass/Vol] 0.82 mg/dL Normal 0.70-1.30 [facility] Comment on above: Order Comment: No: D o not add to previous draw Performed By: #### 0 0071 #### [facility] [address] [place] [address], [place] GFR/1.73 sq M predicted among blacks MDRD (S/P/Bld) [Vol rate/Area] mL/min/{1.73_m2} Normal >60 [facility] Comment on above: Order Comment: No: D o not add to previous draw Performed By: #### 0 0071 #### [facility] [address] [place] [address], [facility] GFR/1.73 sq M predicted among non-blacks MDRD (S/P/Bld) [Vol rate/Area] mL/min/{1.73_m2} Normal >60 [facility] Comment on above: Order Comment: No: D o not add to previous draw Performed By: #### 0 0071 #### [facility] [address] [place] [address], [place] Glucose [Mass/Vol] 104 mg/dL High 70-100 [facility] Comment on above: Order Comment: No: D o not add to previous draw Performed By: #### 0 0071 #### [facility] [address] [place] [address], [place] Potassium [Moles/Vol] 3.6 mmol/L Normal 3.5-5.1 [facility] Comment on above: Order Comment: No: D o not add to previous draw Performed By: #### 0 0071 #### [facility] [address] [place] [address], [place] Sodium [Moles/Vol] 137 mmol/L Normal 136-145 [facility] Comment on above: Order Comment: No: D o not add to previous draw Performed By: #### 0 0071 #### [facility] [address] [place] [address], [facility] Urea nitrogen [Mass/Vol] 13 mg/dL Normal 7-25 [facility] Comment on above: Order Comment: No: D o not add to previous draw Performed By: #### 0 1 #### [facility] [address] [place] [address], [facility] CBC COMPLETE BLOOD COUNTon 10-12-2020 Erythrocyte distribution width (RBC) [Ratio] 13.1 % Normal 11.5-15.0 [facility] Comment on above: Order Comment: No: D o not add to previous draw Performed By: #### 3 0 #### [facility] [address] [place] [address], [facility] Hematocrit (Bld) [Volume fraction] 36.6 % Low 39.0-50.0 [facility] Comment on above: Order Comment: No: D o not add to previous draw Performed By: #### 3 0 #### [facility] [address] [place] [address], [facility] Hemoglobin (Bld) [Mass/Vol] 11.6 g/dL Low 13.0-17.0 [facility] Comment on above: Order Comment: No: D o not add to previous draw Performed By: #### 3 5200 #### [facility] [address] [place] [address], [facility] MCH (RBC) [Entitic mass] 28.1 pg Normal 27.0-33.0 [facility] Comment on above: Order Comment: No: D o not add to previous draw Performed By: #### 3 5200 #### [facility] [address] [place] [address], [facility] MCHC (RBC) [Mass/Vol] 31.7 g/dL Low 32.0-35.0 [facility] Comment on above: Order Comment: No: D o not add to previous draw Performed By: #### 3 5200 #### [facility] [address] [place] [id number], [facility] MCV (RBC) [Entitic vol] 88.6 fL Normal 82.0-98.0 [facility] Comment on above: Order Comment: No: D o not add to previous draw Performed By: #### 3 5200 #### [facility] [address] [place] [address], [facility] Nucleated RBC/100 WBC (Bld) [Ratio] 0 % Normal 0-0 [facility] Comment on above: Order Comment: No: D o not add to previous draw Performed By: #### 3 5200 #### [facility] [address] [facility] [address], [facility] PLAT CNT 289 10*3/uL Normal 150-400 [facility] Comment on above: Order Comment: No: D o not add to previous draw Performed By: #### 3 5200 #### [facility] [address] [place] [address], [facility] RBC (Bld) [#/Vol] 4.13 10*6/uL Low 4.20-5.70 [facility] Comment on above: Order Comment: No: D o not add to previous draw Performed By: #### 3 5200 #### [facility] [address] [place] [address], [facility] WBC (Bld) [#/Vol] 10.27 10*3/uL Normal 4.00-10.60 [facility] Comment on above: Order Comment: No: D o not add to previous draw Performed By: #### 3 5200 #### [facility] [address] [place] [address], [facility] BASIC METABOLIC PANELon - Calcium [Mass/Vol] 9.2 mg/dL Normal 8.6-10.3 [facility] Comment on above: Order Comment: No: D o not add to previous draw Performed By: #### 0 0071 #### [facility] [address] [place] [address], [place] Chloride [Moles/Vol] 106 mmol/L Normal 98-107 [facility] Comment on above: Order Comment: No: D o not add to previous draw Performed By: #### 0 0071 #### [facility] [address] [place] [address], [place] CO2 [Moles/Vol] 27 mmol/L Normal 21-31 [facility] Comment on above: Order Comment: No: D o not add to previous draw Performed By: #### 0 0071 #### [facility] [address] [place] [address], [place] Creatinine [Mass/Vol] 0.84 mg/dL Normal 0.70-1.30 [facility] Comment on above: Order Comment: No: D o not add to previous draw Performed By: #### 0 0071 #### [facility] [address] [place] [address], [place] GFR/1.73 sq M predicted among blacks MDRD (S/P/Bld) [Vol rate/Area] mL/min/{1.73_m2} Normal >60 [facility] Comment on above: Order Comment: No: D o not add to previous draw Performed By: #### 0 0071 #### [facility] [address] [place] [address], [place] GFR/1.73 sq M predicted among non-blacks MDRD (S/P/Bld) [Vol rate/Area] mL/min/{1.73_m2} Normal >60 [facility] Comment on above: Order Comment: No: D o not add to previous draw Performed By: #### 0 0071 #### [facility] [address] [place] [address], [place] Glucose [Mass/Vol] 101 mg/dL High 70-100 [facility] Comment on above: Order Comment: No: D o not add to previous draw Performed By: #### 0 0071 #### [facility] [address] [place] [address], [place] Potassium [Moles/Vol] 3.8 mmol/L Normal 3.5-5.1 [facility] Comment on above: Order Comment: No: D o not add to previous draw Performed By: #### 0 0071 #### [facility] [address] [place] [address], [place] Sodium [Moles/Vol] 139 mmol/L Normal 136-145 [facility] Comment on above: Order Comment: No: D o not add to previous draw Performed By: #### 0 0071 #### [facility] [address] [place] [address], [place] Urea nitrogen [Mass/Vol] 15 mg/dL Normal 7-25 [facility] Comment on above: Order Comment: No: D o not add to previous draw Performed By: #### 0 0071 #### [facility] [address] [place] [address], [facility] CBC COMPLETE BLOOD COUNTon 0 10-11-2020 Erythrocyte distribution width (RBC) [Ratio] 12.9 % Normal 11.5-15.0 [facility] Comment on above: Order Comment: No: D o not add to previous draw Performed By: #### 3 5200 #### [facility] [address] [place] [address], [place] Hematocrit (Bld) [Volume fraction] 38.6 % Low 39.0-50.0 [facility] Comment on above: Order Comment: No: D o not add to previous draw Performed By: #### 3 5200 #### [facility] [address] [place] [address], [place] Hemoglobin (Bld) [Mass/Vol] 12.3 g/dL Low 13.0-17.0 [facility] Comment on above: Order Comment: No: D o not add to previous draw Performed By: #### 3 5200 #### [facility] [address] [place] [address], [facility] MCH (RBC) [Entitic mass] 28.5 pg Normal 27.0-33.0 [facility] Comment on above: Order Comment: No: D o not add to previous draw Performed By: #### 3 5200 #### [facility] [address] [place] [address], [facility] MCHC (RBC) [Mass/Vol] 31.9 g/dL Low 32.0-35.0 [facility] Comment on above: Order Comment: No: D o not add to previous draw Performed By: #### 3 5200 #### [facility] [address] [facility] [place] [address], [facility] MCV (RBC) [Entitic vol] 89.6 fL Normal 82.0-98.0 [facility] Comment on above: Order Comment: No: D o not add to previous draw Performed By: #### 3 5200 #### [facility] [address] [facility] [address], [facility] Nucleated RBC/100 WBC (Bld) [Ratio] 0 % Normal 0-0 [facility] Comment on above: Order Comment: No: D o not add to previous draw Performed By: #### 3 5200 #### [facility] [address] [facility] [address], [facility] PLAT CNT 279 10*3/uL Normal 150-400 [facility] Comment on above: Order Comment: No: D o not add to previous draw Performed By: #### 3 5200 #### [facility] [address] [facility] [place] [address], [facility] RBC (Bld) [#/Vol] 4.31 10*6/uL Normal 4.20-5.70 [facility] Comment on above: Order Comment: No: D o not add to previous draw Performed By: #### 3 5200 #### [address] WBC (Bld) [#/Vol] 10.25 10*3/uL Normal 4.00-10.60 [facility] Comment on above: Order Comment: No: D o not add to previous draw Performed By: #### 3 5200 #### [address] CTA HEART-CORONARY/ ARTERY B YPASS GRAFT WITH 3DPPon 10-11-2020 CTA HEART-CORONARY/ ARTERY BYPASS GRAFT WITH 3DPP [facility] Department of Radiology [address] [place], [place] [id number] Patient Name: KARLA MCCOLLUM : 1950 Sex: M Age: Race: White Pt. Location: [id number] Patient Status: I Ordered Date: 10/11/2020 8:30:00 [...] otherwise. Electronically signed: Asa Hill. Transcribed by: [email or web address], User Resident: ASA HILL Electronically Signed by: ASA HILL @ 10/11/2020 04:34 PM I personally read this/these film(s) with this resident Normal 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 Division of Service Date: 10/10/2020 Cardiology Birthdate: 1950 Adult Cardiovascular Room #: 3AB [id number] [place] [address] Cardiovascular Laboratory Report INDICATION: The patient is [...] signed informed consent. 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 The right wrist area was prepped and draped in usual fashion. Modified Satnam's test was favorable on the right. Access in the right radial artery was obtained using micropuncture technique. A 6-Togolese x 11 cm Hydrophilic sheath was advanced, [...] adequate location, this was upsized to a 6-Togolese x 11 cm sheath. Bilateral selective coronary angiography was then performed using 6-Togolese JL3.5 and JR4 diagnostic catheters. The 6-Togolese JR4 diagnostic catheter was then used to [...] Stern M.D. Date Trans: 10/11/2020 06:09 A/lucia [id number] cc: Hoa Tran M.D. [address], [facility] [address] Neli Stern M.D. Heart Failure/ Transplant Mailstop 111[address] [facility] [address] Normal [facility] BASIC METABOLIC PANELon 09-17 Calcium [Mass/Vol] 9.0 mg/dL Normal 8.6-10.3 [facility] Comment on above: Order Comment: No: D o not add to previous draw Performed By: #### 0 0071, 06130 #### [facility] [address] [place] [address], [place] Chloride [Moles/Vol] 103 mmol/L Normal 98-107 [facility] Comment on above: Order Comment: No: D o not add to previous draw Performed By: #### 0 0071, 09994 #### [facility] [address] [place] [address], [place] CO2 [Moles/Vol] 25 mmol/L Normal 21-31 [facility] Comment on above: Order Comment: No: D o not add to previous draw Performed By: #### 0 007, 75561 #### [facility] [address] [place] [address], [facility] Creatinine [Mass/Vol] 0.87 mg/dL Normal 0.70-1.30 [facility] Comment on above: Order Comment: No: D o not add to previous draw Performed By: #### 0 70, 46570 #### [facility] [address] [place] [address], [facility] GFR/1.73 sq M predicted among blacks MDRD (S/P/Bld) [Vol rate/Area] mL/min/{1.73_m2} Normal >60 [facility] Comment on above: Order Comment: No: D o not add to previous draw Performed By: #### 0 70, 40992 #### [facility] [address] [place] [address], [facility] GFR/1.73 sq M predicted among non-blacks MDRD (S/P/Bld) [Vol rate/Area] mL/min/{1.73_m2} Normal >60 [facility] Comment on above: Order Comment: No: D o not add to previous draw Performed By: #### 0 70, 53549 #### [facility] [address] [place] [address], [facility] Glucose [Mass/Vol] 109 mg/dL High 70-100 [facility] Comment on above: Order Comment: No: D o not add to previous draw Performed By: #### 0 70, 27241 #### [facility] [address] [place] [address], [facility] Potassium [Moles/Vol] 3.5 mmol/L Normal 3.5-5.1 [facility] Comment on above: Order Comment: No: D o not add to previous draw Performed By: #### 0 70, 85748 #### [facility] [address] [place] [address], [facility] Sodium [Moles/Vol] 137 mmol/L Normal 136-145 [facility] Comment on above: Order Comment: No: D o not add to previous draw Performed By: #### 0 007, 16415 #### [facility] [address] [place] [address], [facility] Urea nitrogen [Mass/Vol] 14 mg/dL Normal 7-25 [facility] Comment on above: Order Comment: No: D o not add to previous draw Performed By: #### 0 007, 25638 #### [facility] [address] [place] [address], [facility] CBC COMPLETE BLOOD COUNTon 0 10-10-2020 Erythrocyte distribution width (RBC) [Ratio] 13.2 % Normal 11.5-15.0 [facility] Comment on above: Order Comment: No: D o not add to previous draw Performed By: #### 3 5200 #### [facility] [address] [place] [id number], [facility] Hematocrit (Bld) [Volume fraction] 38.2 % Low 39.0-50.0 [facility] Comment on above: Order Comment: No: D o not add to previous draw Performed By: #### 3 5200 #### [facility] [address] [place] [address], [facility] Hemoglobin (Bld) [Mass/Vol] 12.2 g/dL Low 13.0-17.0 [facility] Comment on above: Order Comment: No: D o not add to previous draw Performed By: #### 3 5200 #### [facility] [address] [place] [id number], [facility] MCH (RBC) [Entitic mass] 28.6 pg Normal 27.0-33.0 [facility] Comment on above: Order Comment: No: D o not add to previous draw Performed By: #### 3 5200 #### [facility] [address] [place] [address], [facility] MCHC (RBC) [Mass/Vol] 31.9 g/dL Low 32.0-35.0 [facility] Comment on above: Order Comment: No: D o not add to previous draw Performed By: #### 3 5200 #### [facility] [address] [place] [address], [facility] MCV (RBC) [Entitic vol] 89.5 fL Normal 82.0-98.0 [facility] Comment on above: Order Comment: No: D o not add to previous draw Performed By: #### 3 5200 #### [facility] [address] [place] [id number], [facility] Nucleated RBC/100 WBC (Bld) [Ratio] 0 % Normal 0-0 [facility] Comment on above: Order Comment: No: D o not add to previous draw Performed By: #### 3 [id number] #### [facility] [address] [place] [address], [facility] PLAT CNT 253 10*3/uL Normal 150-400 [facility] Comment on above: Order Comment: No: D o not add to previous draw Performed By: #### 3 [id number] #### [facility] [address] [place] [id number], [facility] RBC (Bld) [#/Vol] 4.27 10*6/uL Normal 4.20-5.70 [facility] Comment on above: Order Comment: No: D o not add to previous draw Performed By: #### 3 [id number] #### [facility] [address] [place] [address], [place] WBC (Bld) [#/Vol] 10.57 10*3/uL Normal 4.00-10.60 The [facility] Comment on above: Order Comment: No: D o not add to previous draw Performed By: #### 3 [id number] #### [facility] [address] [place] [address], [facility] HEMOGLOBIN A1Con 10-10-2020 HbA1c (Bld) [Mass fraction] 6.0 % Normal 4.0-6.0 [facility] Comment on above: Order Comment: No: D o not add to previous draw Performed By: #### 3 1791 #### [facility] [address] [place] [address], [facility] HbA1c (Bld) [Mass fraction] 126 mmol/L Normal [facility] Comment on above: Order Comment: No: D o not add to previous draw Performed By: #### 3 1791 #### [facility] [address] [place] [address], [facility] LIPID PROFILEon 10-10-2020 Cholesterol [Mass/Vol] 144 mg/dL Normal 120-200 Th [facility] Comment on above: Order Comment: No: D o not add to previous draw Result Comment: CHOL ESTEROL REFERENCE RANGE: 20 YEARS AND OLDER CARDIOVASCULAR RISK Less than 200 mg/dl Low Risk 200 to 239 mg/dl Borderline Risk 240 mg/dl and greater High Risk Performed By: #### 0 0071, [id number] #### [facility] [address] [place] [address], [facility] Cholesterol in HDL [Mass/Vol] 30 mg/dL Normal 23-92 [facility] Comment on above: Order Comment: No: D o not add to previous draw Result Comment: Slig ht variation in normal range could be due to gender and/or age. HDL CHOLESTEROL REFERENCE RANGE: 20 years and older Cardiovascular Risk > or =60 mg/dL Desirable 40 TO 59 mg/dL Low Risk <40 mg/dL High Risk Performed By: #### 0 0071, 19753 #### [facility] [address] [place] [address], [facility] Cholesterol in LDL [Mass/Vol] 73 mg/dL Normal 0-130 The [facility] Comment on above: Order Comment: No: D o not add to previous draw Result Comment: LDL IS A CALCULATION LDL IS ONLY VALID IF THE TRIG IS LESS THAN 400. Performed By: #### 0 0071, 27738 #### [facility] [address] Cholesterol.total/Chol esterol in HDL [Mass ratio] 4.8 {ratio} High 0.0-4.5 [facility] Comment on above: Order Comment: No: D o not add to previous draw Performed By: #### 0 0071, 10742 #### [facility] [address] NON-HDL CHOLESTEROL 114 mg/dL Normal [facility] Comment on above: Order Comment: No: D o not add to previous draw Performed By: #### 0 0071, 40869 #### [facility] [address] Triglyceride [Mass/Vol] 203 mg/dL High 40-149 The [facility] Comment on above: Order Comment: No: D o not add to previous draw Result Comment: TRIG LYCERIDE REFERENCE RANGE: 20 YEARS AND OLDER CARDIOVASCULAR RISK LESS THAN 150 mg/dl LOW RISK 150 TO 199 mg/dl BORDERLINE RISK 200 mg/dl AND GREATER HIGH RISK Performed By: #### 0 0071, 19162 #### [facility] [address] VLDL CHOL 41 mg/dL High 0-40 The [facility] Comment on above: Order Comment: No: D o not add to previous draw Performed By: #### 0 0071, 17229 #### [facility] [address] PROTHROMBIN TIMEon 1 INR Coag (PPP) [Relative time] 1.00 {INR} Normal 0.91-1.16 [facility] Comment on above: Order Comment: No: D o not add to previous draw Result Comment: ACCC P RECOMMENDED INR FOR WARFARIN THERAPY --------- ------- CONDITION INR PROPHYLAXIS OF VENOUS THROMBOSIS 2-3 (HIGH-RISK SURGERY) TREATMENT OF VENOUS THROMBOSIS 2-3 TREATMENT OF PULMONARY EMBOLISM 2-3 PREVENTION OF SYSTEMIC EMBOLISM: 2-3 ACUTE MYOCARDIAL INFARCTION TISSUE HEART VALVES VALVULAR HEART DISEASE ATRIAL FIBRILLATION RECURRENT SYSTEMIC EMBOLISM MECHANICAL HEART VALVE 2.5-3.5 FROM: ORAL ANTICOAGULANTS. MECHANISM OF ACTION, CLINICAL EFFECTIVENESS, AND OPTIMAL THERAPEUTIC RANGE. CHEST 1995;108:231S-246S. Performed By: #### 5 6101 #### [facility] [employer] [address] PT Coag (PPP) [Time] 13.2 s Normal 12.3-14.8 [facility] Comment on above: Order Comment: No: D o not add to previous draw Result Comment: ALL RESULTS MUST BE INTERPRETED WITH RESPECT TO BLOOD DRAWING ARTIFACT OR DILUTION ERROR OF ANTICOAGULANT AT THE TIME OF SAMPLING. Performed By: #### 5 6101 #### [facility] [address] BNP (B-TYPE NATRIURETIC PEPT FELISA)on 10-09-2020 Natriuretic peptide B (Bld) [Mass/Vol] 32 pg/mL Normal 0-100 [facility] Comment on above: Order Comment: No: D o not add to previous draw Result Comment: Give n the appropriate clinical setting a BNP result of >100 pg/mL indicates congestive heart failure. Performed By: #### 8 5123 #### [facility] [address] [place] [address], [facility] TROPONIN-Ion 10-09-2020 Troponin I.cardiac [Mass/Vol] 0.00 ng/mL Normal 0.00-0.04 [facility] Comment on above: Order Comment: No: D o not add to previous draw Result Comment: FOUZIA LUNA RANGES: 0.00 - 0.14 ng/ml NEGATIVE 0.15 - 0.25 ng/ml INDETERMINATE > 0.25 ng/ml INDICATIVE OF AN M.I. Performed By: #### 3 5200 #### [facility] [address] Provider Letter FTon 09-20 Provider Letter [facility] [address] [address], [address] [place] [address] Re: KARLA MCCOLLUM Date of : 1950 Thank you for your referral of Karla Mccollum who was seen on consultation on Sep 17, 2020, for three skin lesions of concern. I have enclosed my consultation note for your review, and I will be happy to follow Karla should he need further treatment. Sincerely, Karla Dye MD General Surgery Normal [facility] Facesheeton 09-18-2020 Facesheet [id number] #1.00CD:127 Normal [facility] Ambulatory Clinical Summaryo n 09-17-2020 Ambulatory Clinical Summary {[id number] Normal [facility] General Surgery Office/Clini c Noteon 09-17-2020 General [...] Primary malignant neoplasm of lung: Father. Normal [facility] Comment on above: Result Comment: Elec tronically Signed By: SHEY WARD, Karla Leos\Date and Time Signed: 09/17/20 16:29 EST Physician Referralon 021 Physician Referral [id number] #1.00CD:127 Normal [facility] Vital Signs Date Time Vital Sign Value Performing Clinician Faci lity 04-18-2025 13:08-0400 Body height 177.8 cm Sadaf Malhotra MD Work Phone: [facility] 04-18-2025 13:08-0400 Body mass index (BMI) [Ratio] 35.15 kg/m2 Sadaf Malhotra MD Work Phone: [facility] 04-18-2025 13:08-0400 Body weight 111.13 kg Sadaf Malhotra MD Work Phone: [facility] 04-18-2025 13:08-0400 Diastolic blood pressure 60 mm[Hg] Sadaf Malhotra MD Work Phone: [facility] 04-18-2025 13:08-0400 Heart rate 62 /min Sadaf Malhotra MD Work Phone: [facility] 04-18-2025 13:08-0400 Systolic blood pressure 127 mm[Hg] Sadaf Malhotra MD Work Phone: [facility] 05-30-2024 10:29-0400 Body height 177.8 cm Sadaf Malhotra MD Work Phone: [facility] 05-30-2024 10:29-0400 Body mass index (BMI) [Ratio] 36.16 kg/m2 Sadaf Malhotra MD Work Phone: [facility] 05-30-2024 10:29-0400 Body weight 114.31 kg Sadaf Malhotra MD Work Phone: [facility] 05-30-2024 10:29-0400 Diastolic blood pressure 71 mm[Hg] Sadaf Malhotra MD Work Phone: [facility] 05-30-2024 10:29-0400 Systolic blood pressure 130 mm[Hg] Sadaf Malhotra MD Work Phone: [facility] Healthcare Encounters Encounter Date Encounter Type Care Provider Facility Start: 04-18-2025 End: 04-18-2025 Bamboo Notchheet Sadaf Malhotra MD Work Phone: [facility] Start: 04-18-2025 End: 04-18-2025 Bamboo Notchheet Sadaf Malhotra MD [facility] Start: 04-18-2025 End: 04-18-2025 Office outpatient visit 25 minutes Sadaf Malhotra MD Work Phone: [facility] Comment on above: Chronic myringitis o f left ear (Primary Dx); Other infective chronic otitis externa of left ear; Foreign body of left ear, initial encounter Start: 04-18-2025 End: 04-18-2025 ambulatory SADAF MALHOTRA Not Available Start: 12-04-2024 End: 12-04-2024 Bamboo Notchheet Jacqui Guillen MD Work Phone: [facility] Start: 12-04-2024 End: 12-04-2024 Bamboo flowsheet Jacqui Guillen MD Work Phone: [facility] Start: 12-04-2024 End: 12-04-2024 Office outpatient visit 25 minutes Jacqui Guillen MD Work Phone: [facility] Comment on above: Other seborrheic ochoa matitis (Primary Dx); Melanocytic nevus of trunk; Actinic keratosis; Lentigines; Stasis dermatitis of both legs Start: 12-04-2024 End: 12-04-2024 ambulatory JACQUI GUILLEN Not Available Start: 11-20-2024 End: 11-20-2024 ambulatory [facility] Start: 11-08-2024 End: 11-08-2024 ambulatory SADAF MALHOTRA Not Available Start: 10-30-2024 End: 10-30-2024 Clinisync Result Encounter Sadaf Malhotra MD Work Phone: [facility] Unsolicited Start: 10-30-2024 End: 10-30-2024 Clinisync Result Encounter Sadaf Malhotra MD Work Phone: [facility] Unsolicited Start: 05-30-2024 End: 05-30-2024 Bamboo flowsheet Sadaf Malhotra MD Work Phone: [facility] Start: 05-30-2024 End: 05-30-2024 Bamboo preet Malhotra MD Work Phone: [facility] Start: 05-30-2024 End: 05-30-2024 Office outpatient new 45 minutes Sadaf Malhotra MD Work Phone: [facility] Comment on above: Nontoxic multinodula r goiter (CMS/HCC) (Primary Dx); Neck mass Start: 05-30-2024 End: 05-30-2024 ambulatory SADAF MALHOTRA Not Available Start: 05-15-2024 End: 05-15-2024 ambulatory [facility] Work Phone: Start: 05-15-2024 End: 05-15-2024 Departed Referred MD Hoa Tran Work Phone: [facility] Start: 12-22-2023 End: 12-22-2023 ambulatory [facility] Start: 12-15-2023 End: 12-15-2023 ambulatory Bismark Redd Facility:[facility] Start: 11-24-2022 End: 11-25-[address] NELI STERN Facility: Start: 09-02-2022 End: 09-02-[address] HOA TRAN . Facility:[facility] Start: 12-17-2021 End: 12-18-[address] HOA TRAN . Facility: Start: 10-09-2020 End: 10-12-2020 Evaluation and management of inpatient HOA TRAN Facility:[facility] Procedures Date Procedure Procedure Detail Performing Clinician Start: 12-04-2024 CRYOTHERAPY SKIN LESION Jacqui Guillen MD Work Phone: Start: 10-30-2024 Us soft tissue head & neck real time imge docm Sadaf Malhotra MD Work Phone: Start: 10-10-2020 INTRODUCE OTH THERAP SUBST IN CORONARY ART, PERC NELI V MOUKARBEL Start: 10-10-2020 PLAIN RADIOGRAPHY OF MULT COR ART USING L [facility] CONTRAST NELI V JENNYRBROBER Start: 10-10-2020 PLAIN RADIOGRAPHY OF R LOW EXTREM ART USING L OSM CONTRAST NELI STERN Plan of Treatment Date Care Activity Detail Author Start: 12-04-2025 End: 12-04-2025 Patient encounter procedure [facility] Start: 05-09-2025 End: 05-09-2025 Patient encounter procedure [facility] Start: 04-18-2025 End: 04-18-2025 Patient encounter procedure 04/18/2025 1:10 PM EDT Office Visit [facility] [place] [facility] [address] [place] [phone] Sadaf Malhotra MD [address] [place] [address] Arrived [facility] [place] [facility] Comment on above: Arrived Start: 04-16-2025 Influenza vaccination [facility] Start: 12-04-2024 End: 12-04-2024 Patient encounter procedure [facility] Comment on above: Arrived Start: 11-08-2024 End: 11-08-2024 Patient encounter procedure 11/08/2024 8:30 AM EDT Office Visit [facility] [address] [place] [phone] Sadaf Malhotra MD [address] [facility] [address] [place] [id number] [facility] Start: 05-30-2024 End: 05-30-2024 Patient encounter procedure 05/30/2024 10:30 AM EDT Office Visit [facility] [address] [facility] [address] [place] [phone] Sadaf Malhotra MD [address] [facility] [address] [place] [address] Arrived [facility] Comment on above: Arrived Start: 04-16-2024 Influenza vaccination Influenza Vacc ine (#1) [facility] Start: 1950 Screening for malignant neoplasm of colon [facility] Immunizations Immunization Date Immunization Notes Care Provider Fa cility 05-03-2023 influenza virus vacc ine, unspecified formulation Sadaf Malhotra MD Work Phone: [facility] Payers Date Payer Category Payer Medicare [id number] 2023 Self-pay 2023 Medicare (Managed Care) 1.2. [id number] 2023 Medicare [id number] 1959 Medicare [id number] 1959 Unknown [id number] 1950 Unknown [id number] 1950 Unknown [id number] 1950 Unknown [id number] 1950 Unknown [id number] 1950 Unknown [id number] 1950 Unknown [id number] [id number] 1950 Unknown [id number] 1950 Unknown [id number] [id number] Unknown [employer] BC/BS [id number] Unknown Insurance No Card [id number] Unknown [id number] Unknown [id number] [id number] Social History Date Type Detail Facility Start: 07-14-[address] [facility] Never smoked tobacco (finding) [facility] Start: 1950 Sex Assigned At Male F [facility] Start: 12-02-[address] [facility] Tobacco smoking consumption unknown [facility] Start: 1950 Sex assigned at Not on file [facility] Start: 05-30-2024 End: 12-04-2024 Gender identity Not on file [facility] Start: 05-30-2024 [facility] History of tobacco use Current smoker [facility] History of tobacco use Cigarette Smoker [facility] History of tobacco use Passive smoker [facility] Start: 05-30-2024 Tobacco use and exposure Smokeless tobacco non-user [facility] Start: 05-30-2024 End: 04-18-2025 Alcoholic beverage intake Current drinker of alcohol (finding) [facility] Start: 05-30-2024 End: 12-04-2024 History of Social function [facility] History of Present illness Narrative 04-18-2025 Sadaf Malhotra MD - 04/18/2025 1:10 PM EDT Note Date & Type Note Facility 04-18-2025 History of Presen t illness Narrative Images from the original note were not included. Subjective Patient ID: Karla Mccollum is a 75 y.o. male who presents for Cerumen Impaction Pt reports one mo ago he had left ear pain and HL. Seen by PCP and started on ear drops. Pain improved, but not HL. Has had similar trouble before and needed slag debrided from the ears. Review of Systems All other systems reviewed and are negative. Family History Problem Relation Name Age of Onset Heart failure Mother Cancer Father Melanoma Brother Active Ambulatory Problems Diagnosis Date Noted Multiple gouty tophi 05/30/2024 Nontoxic multinodular goiter 05/30/2024 Neck mass 05/30/2024 Cardiovascular stress test abnormal 09/04/2022 Chest pain 09/04/2022 Arteriosclerosis of coronary artery 11/08/2024 Diverticular disease 09/04/2022 Dyslipidemia 12/06/2017 Essential hypertension 12/06/2017 Gastroenteritis 09/04/2022 Gastroesophageal reflux 12/06/2017 Hx of total shoulder replacement, left 10/27/2021 Hypertensive left ventricular hypertrophy 09/04/2022 Hypertriglyceridemia 09/04/2022 Resolved Ambulatory Problems Diagnosis Date Noted No Resolved Ambulatory Problems Past Medical History: Diagnosis Date Thyroid nodule Past Surgical History: Procedure Laterality Date REPLACEMENT TOTAL HIP LATERAL POSITION 15 years ago SHOULDER ARTHROSCOPY Left 2019 No Known Allergies Current Outpatient Medications on File Prior to Visit Medication Sig Dispense Refill amLODIPine (Norvasc) 10 MG tablet Take 10 mg by mouth Daily aspirin 81 MG EC tablet in the morning. atorvastatin (Lipitor) 40 MG tablet Take 40 mg by mouth in the morning. ciclopirox (Loprox) 0.77 % cream Apply thin layer to affected areas on the face once a day, 30 day supply 90 g 11 Ciclopirox 1 % shampoo Lather on wet hair and slade, leave on 5 min, rinse 2-3 x week, 30 day supply 120 mL 11 ezetimibe (Zetia) 10 MG tablet fenofibrate (Tricor) 145 MG tablet Take 145 mg by mouth Daily irbesartan (Avapro) 150 MG tablet Take 150 mg by mouth Daily isosorbide mononitrate ER (Imdur) 120 MG 24 hr tablet Take 120 mg by mouth metoprolol succinate XL (Toprol-XL) 100 MG 24 hr tablet Take 100 mg by mouth Daily omeprazole (PriLOSEC) [address] capsule ranolazine (Ranexa) 1000 MG 12 hr tablet Take 1 tablet by mouth in the morning and 1 tablet before bedtime. triamcinolone (Kenalog) 0.1 % cream Apply to affected areas on the legs bid when flared. Avoid the face, armpits, and groin 80 g 2 [DISCONTINUED] wqnycawk-pxdkkcfkq-ahltcojhxyizox (Cortisporin) 3.5-49482-0 otic suspension every 8 (eight) hours No current facility-administered medications on file prior to visit. Objective Last Recorded Vitals Vitals: 04/18/25 1308 BP: 127/60 Pulse: 62 ENT Physical Exam Constitutional Appearance: patient appears well-developed and well-nourished, Head and Face Appearance: head appears normal and face appears atraumatic; Ear Ear Canals: right ear canal normal; Tympanic Membranes: right tympanic membrane normal; Ear comments: LT - fungal debris filling EAC. TM and EAC inflammed Nose External Nose: nares patent bilaterally; external nose normal; Internal Nose: nasal mucosa normal; Oral Cavity/Oropharynx Lips: normal; Teeth: normal; Gums: gingiva normal; Tongue: normal; Oral mucosa: normal; Hard palate: normal; Neck Neck: neck normal; neck palpation normal; Thyroid: thyroid normal; Respiratory Inspection: breathing unlabored; normal breathing rate; Auscultation: breath sounds are clear; Cardiovascular Inspection: extremities are warm and well perfused; no peripheral edema present; Auscultation: regular rate and rhythm; Patient ID: Karla Mccollum is a 75 y.o. male. Procedures Foreign body removed from the left ear canal under micro with a suction Assessment/Plan Diagnoses and all orders for this visit: Chronic myringitis of left ear Other infective chronic otitis externa of left ear Foreign body of left ear, initial encounter LT ear debrided. EAC and TM markedly inflamed. Tx with alternating clotrimazole and ciprodex, as well as diflucan. documented in this encounter [facility] History of Present illness Narrative 12-04-2024 Jacqui Guillen MD - 12/04/2024 9:30 AM EDT Note Date & Type Note Facility 12-04-2024 History of Presen t illness Narrative Images from the original note were not included. Skin Check Location: Patient requests a full body skin examination Dermatologic history: no history of skin cancer, no history of atypical moles, family history of melanoma (brother) Last visit: 1 year ago All pertinent medical history, medications, and allergies were reviewed. General Exam: alert, oriented to person, place, and time, normal affect, well appearing Unaccompanied Scalp, Examined Right leg Examined Head, Face Examined Left leg Examined Neck Examined Right foot Examined Chest Examined Left foot Examined Back Examined Buttocks Examined Abdomen Examined Digits,nails: Examined Right arm Examined Left arm Examined Lymphatics: Not examined Hands Examined Skin Exam 1. MELANOCYTIC NEVUS OF TRUNK Generalized Scattered benign appearing, regular brown to light brown melanocytic papules and macules with similar morphology Counseled regarding these benign growths. Rarely, a nevus can develop into malignant melanoma, so any changing nevi should be promptly re-evaluated. 2. ACTINIC KERATOSIS Right Forehead Erythematous scaly papule Patient was counseled regarding these sun-induced growths that can develop into squamous cell carcinoma if left untreated. Discussed treatment with cryotherapy. It was emphasized that any treated lesions that fail to resolve should be re-evaluated. Cryotherapy performed today; see procedure note Diagnosis: Actinic keratosis Indication: Precancerous Location: see skin exam Consent: Verbal consent was obtained and risks were discussed, including, but not limited to risks of scarring, darker or finishing tunnel operator pigmentary changes, recurrence, incomplete removal and infection. Method: Liquid nitrogen was used to treat the lesion(s) with two 5-10 second freeze-thaw cycles. Number of lesions treated: 1 Post-procedure instructions: Instructions were given orally and in writing. The office will be contacted if the lesion fails to resolve despite treatment, or if a side effect develops such as abnormal crusting, scabbing, redness or tenderness Cryotherapy, skin lesion - Right Forehead 3. LENTIGINES (2) Generalized, Head - Anterior (Face) Scattered becker macules in sun-exposed areas. The patient was informed that lentigines are benign pigmented lesions that occur on sun-exposed and sun-damaged skin. No treatment is necessary. Recommended regular use of broad spectrum sunscreen SPF 30 or higher 4. OTHER SEBORRHEIC DERMATITIS Head - Anterior (Face) Erythema and scale. Flaring today Discussed that seborrheic dermatitis is a chronic condition that can be controlled but not cured. Start Ciclopirox shampoo 2-3 times per week AND cream daily. Instructed on proper use of prescribed medications. Notify office if flaring despite treatment. Ciclopirox 1 % shampoo - Head - Anterior (Face) Lather on wet hair and slade, leave on 5 min, rinse 2-3 x week, 30 day supply ciclopirox (Loprox) 0.77 % cream - Head - Anterior (Face) Apply thin layer to affected areas on the face once a day, 30 day supply 5. STASIS DERMATITIS OF BOTH LEGS Left Lower Leg - Anterior, Right Lower Leg - Anterior [place] scaly plaques in areas of edema The patient was informed that stasis dermatitis is a chronic rash on the lower legs due to swelling often caused by poor circulation. The patient was instructed to keep the legs elevated when seated, avoid standing for long periods of time, and to wear compression stockings. Start TAC 0.1% cream bid prn when flared, hold if clear. Instructed on proper use of prescribed medication. Notify clinic if failing to improve despite treatment. Related Medications triamcinolone (Kenalog) 0.1 % cream Apply to affected areas on the legs bid when flared. Avoid the face, armpits, and groin Next Visit: 1 year documented in this encounter [facility] Progress note 11-20-2024 Note Date & Type Note Facility 11-20-2024 Note [facility] Subjective Karla Mccollum is a 74 y.o. year old male patient being seen for 1 year follow up. Patient states he had chest pain 6 months ago then x 3 weeks ago and took 1 nitro with each episode of chest pain which relieved the pain. SOB, with exertion, fatigue, swelling bilateral legs. Denies any abnormal bleeding. Patient Active Problem List Diagnosis Cardiovascular stress test abnormal Chest pain Coronary artery spasm Diverticular disease Dyslipidemia Hypertensive disorder Gastroenteritis Gastroesophageal reflux Hx of total shoulder replacement, left Hypertensive left ventricular hypertrophy Hypertriglyceridemia Idiopathic urticaria Iron deficiency anemia, unspecified Iron malabsorption Obstructive sleep apnea on CPAP Osteoarthritis of left shoulder Prostatitis Status post total hip replacement, left Multiple gouty tophi Neck mass Nontoxic multinodular goiter Family History Problem Relation Name Age of Onset Hypertension Mother Cancer Father Social History Tobacco Use Smoking status: Former Types: Cigarettes Smokeless tobacco: Never Substance Use Topics Alcohol use: Yes Comment: 4 to 5 per week ALISA Taylor is seen in follow-up. He is a 74 yo man who is seen in follow [...] mg daily. He was admitted to the [facility] on 05/06/2023 with chest pain and uncontrolled hypertension. Ranexa and metoprolol were increased. At last visit of 06/18/2023 I added ezetimibe 10 mg daily due to LDL not being at target. Today he reports that he has been doing well. He reports having had 1 or 2 episodes of chest pain in the past 6 months for which she had to take sublingual nitroglycerin however this was in the setting of missing his other medications. Outside of that he has been doing well without any chest pain with exertion. He does have mild shortness of breath on exertion that has been stable. He has occasional lower extremity edema but no claudication. Review of Systems Cardiovascular: Positive for chest pain, dyspnea on exertion and leg swelling (LLE). Musculoskeletal: Positive for back pain. All other systems reviewed and are negative. Objective Visit Vitals BP 116/71 (BP Location: Left arm, Patient Position: Sitting) Pulse 67 Ht 1.778 m (5' 10 ) Wt 110 kg (242 lb) SpO2 99% BMI 34.72 kg/m??? Smoking Status Former BSA 2.33 m??? Physical Exam Constitutional: Appearance: He is [...] time. Psychiatric: Mood and Affect: Mood normal. Be (more content not included)... [facility] History of Present illness Narrative 05-30-2024 Sadaf Malhotra MD - 05/30/2024 10:30 AM EDT Note Date & Type Note Facility 05-30-2024 History of Presen t illness Narrative Subjective Patient ID: Karla Mccollum is a 74 y.o. male who presents for Neck Mass ( FNA 05/15/24 [facility]) Pt reports that in the course of being evaluated for a left submandibular mass he was found to also have thyroid nodules. US of the submental mass shows a [id number] mass. FNA c/w a lipoma. Thyroid US shows a [id number] RT TR5 nodule and a [id number] LT TR4 nodule. Path on each thyroid nodule was [place] 1. No known radiation exposure or family [...] tablet Take 100 mg by mouth Daily hsxnflhw-tbeuwlznv-dvztkhwgjuoiel (Cortisporin) 3.5-52811-4 otic suspension every 8 (eight) hours omeprazole [...] bx, or removal documented in this encounter [facility] Healthcare Progress note 12-22-2023 Note Date & Type Note Facility 12-22-2023 Note [facility] Subjective Karla Mccollum is a [...] mg daily. He was admitted to the [facility] on 05/06/2023 with chest pain [...] Disp: 90 tablet, (more content not included)... [facility] Clinical Note 12-17-2021 Note Date [...] and reported in a separate dictation. [facility] Evaluation note Note Date & Type Note Facility Evaluation note [facility]: Evaluation note Note Date & Type Note Facility Evaluation note Diagnosis Nontoxic multinodular goiter (CMS/HCC)- Primary Nontoxic multinodular goiter Neck mass Swelling, mass, or lump in head and neck documented in this encounter [facility] Evaluation note Note Date & Type Note Facility Evaluation note Diagnosis Other seborrheic dermatitis- Primary Melanocytic nevus of trunk Benign neoplasm of skin of trunk, except scrotum Actinic keratosis Lentigines Stasis dermatitis of both legs documented in this encounter [facility] Evaluation note Note Date & Type Note Facility Evaluation note Diagnosis Chronic myringitis of left ear- Primary Other infective chronic otitis externa of left ear Foreign body of left ear, initial encounter documented in this encounter [facility] Summary Purpose Family History No Family History Records Found Relationship Condition Age at Onset Recorded Date/T enma father Family history of lung cancer Unknown Unknown Malignant neoplasm Unknown mother Hypertension Unknown Advance Directives No Advanced Directives Records FoundNo Advanced Directives Records FoundNo Advanced Directives Records FoundNo Advanced Directives Records FoundNo Advanced Directives Records FoundNo Advanced Directives Records Found Hospital Course Note MR#: [id number] [facility] Pt. Name: Karla Mccollum Admitted: 10/09/2020 Discharged: [...] and content) DATE CREATED AUTHOR 09/22/2020 [employer] [facility] DATE CREATED AUTHOR AUTHOR'S ORGANIZ ATION 10/15/2020 [facility] DATE CREATED AUTHOR AUTHOR'S ORGANIZ ATION 11/30/2022 [facility] DATE CREATED AUTHOR AUTHOR'S ORGANIZ ATION 05/20/2024 [facility] DATE CREATED AUTHOR AUTHOR'S ORGANIZ ATION 11/21/2024 [facility] DATE CREATED AUTHOR AUTHOR'S ORGANIZ ATION 04/20/2025 [facility] [employer] Care Teams (unrecognized sec tion and content) Team Status: Inactive Member Role Status Dates Hoa Tran MD Attending Provider Active Sta rt: May 15, 2024 End: May 15, 2024 Electrical [employer] Instrument Technician Relationship Specialty Start Date End Date Hoa Tran MD [address] [place] [address] PCP - General Family Medicine 05/30/24 Electrical [employer] Instrument Technician Relationship Specialty Start Date End Date Hoa Tran MD [address] [place] [address] PCP - General Family Medicine 05/30/24 Electrical And Instrument Technician Relationship Specialty Start Date End Date Hoa Tran MD [address] [facility] [facility] [address] PCP - General Family Medicine 05/30/24 Electrical And Instrument Technician Relationship Specialty Start Date End Date Hoa Tran MD [address] [facility] [phone] PCP - General Family Medicine 05/30/24 Electrical And Instrument Technician Relationship Specialty Start Date End Date Hoa Tran MD [address] [facility] [address] PCP - General Family Medicine 05/30/24 Electrical And Instrument Technician Relationship Specialty Start Date End Date Hoa Tran MD [address] [facility] [facility] [address] PCP - General Family Medicine 04/18/25 Electrical And Instrument Technician Relationship Specialty Start Date End Date Hoa Tran MD [address] [facility] [address] PCP - General Family Medicine 04/18/25 Goals (unrecognized section and content) Goals may be documented in a n alternate section Reason for Visit (unrecogniz ed section and content) Reason Comments Neck Mass FNA 05/15/24 [facility] Reason Comments Skin Check Reason Comments Cerumen Impaction FOR RECORDS PERTAINING TO PATIENTS WHO ARE [...] BE BASED ON THE PRIMARY CLINICAL RECORDS. [facility] [facility]. provides no warranty or guarantee of the accuracy or completeness of information in this document.
== END 2025-04-23 08:45 | disposition home or self-care (01) ==
LOC: US 08:44
PROVIDERS: PCP Family Medicine; Visit Provider Otolaryngology
DX: E04.2 Nontoxic multinodular goiter (principal)
CPT/HCPCS: 76536

== ENCOUNTER 2025-05-01 07:47 | Outpatient (OUT) | payer MEDICARE, SELFPAY ==
--- OUTSIDE RECORDS SUMMARY | 2025-05-01 07:51 | XMS_ITS | CCD ---
Author Organization [facility] Care Team Providers Care Biometrics Instructor Name Role Phone HOA TRAN Primary Care Unavailable UNKNOWN, PROVIDER Referring Unavailable GRISELDA, HANI Admitting Unavailable GRISELDA HANI Attending Unavailable IA Procedure Practitioner Unavailab le UNKNOWN, PROVIDER Surgeon Unavailable SNEHAL ., DR CAMARA Primary Care Unavailable DIAB ., KWADWO Admitting Unavailable DIAB ., KWADWO Attending Unavailable Bismark Redd Consulting Unavailable DIAB ., KWADWO Consulting Unavailable MOUKAKELLY, DR QUINTEROS Admitting Unavailable MOUKAKELLY, DR QUINTEROS Attending Unavailable SNEHAL ., DR CAMARA Primary Care Unavailable MOUKAKELLY, DR QUINTEROS Consulting Unavailable SNEHAL ., DR CAMARA Admitting Unavailable SNEHAL ., DR CAMARA Attending Unavailable SNEHAL ., DR CAMARA Primary Care Unavailable SNEHAL ., DR CAMARA Consulting Unavailable Bismark Redd Consulting Unavailable MD Hoa Tran Attending Provider Hoa Tran Attending Unavailable Hoa Tran Admitting Unavailable Bismark Redd V Attending Unavailable Bismark Redd V Admitting Unavailable Hoa Tran MD Primary Care Provider NELI STERN Attending Unavailable NELI STERN Attending Unavailable Hoa Tran MD Primary Care Provider SADAF MALHOTRA Attending Unavailable JACQUI GUILLEN Attending Unavailable SADAF MALHOTRA Attending Unavailable HOA TRAN Referring Unavailable SADAF MALHOTRA Attending Unavailable SADAF MALHOTRA Attending Unavailable Medications Current Medications Medication Drug Class(es) Dates Sig (Normalized) Sig (Original) amLODIPine 10 mg oral tablet (15 sources) Dihydropyridine Calcium Channel Mario take 1 tablet by mouth once daily amLODIPine (Norvasc) 10 MG tablet Take 10 mg by mouth Daily Active aspirin 81 mg delayed release oral tablet (15 sources) Platelet Aggregation Inhibitor, Nonsteroidal Anti-inflammatory Drug aspirin 81 MG EC tablet in the morning. Active atorvastatin 40 mg oral tablet (15 sources) HMG-CoA Reductase Inhibitor take 1 tablet by mouth in the morning atorvastatin (Lipitor) 40 MG tablet Take 40 mg by mouth in the morning. Active ciclopirox 10 mg/ml medicated shampoo (20 sources) Start: 12-04-2024 Ciclopirox 1 % shampoo [...] day, 30 day supply 30 g 11 12/02/2023 05/30/2024 Discontinued (Therapy completed) ciprofloxacin 3 mg/ml / dexamethasone 1 mg/ml otic suspension (7 sources) Corticosteroid, Quinolone Antimicrobial Start: 04-18-2025 End: 04-28-2025 ciprofloxacin-dexAMETHasone (CiproDEX) otic suspension Indications: Chronic myringitis of left ear , Other infective chronic otitis externa of left ear Administer 4 drops into the left ear in the morning and 4 drops before bedtime. Do all this for 10 days. 7.5 mL 04/18/2025 04/28/2025 Active clotrimazole 10 mg/ml topical solution (7 sources) Azole Antifungal Start: 04-18-2025 clotrimazole (Lotrimin) 1 % external solution Indications: Chronic myringitis of left ear , Other infective chronic otitis externa of left ear 4 drops to left ear 2 times daily for 10 days 10 mL 1 04/18/2025 Active ezetimibe 10 mg oral tablet (15 sources) Dietary Cholesterol Absorption Inhibitor Start: 08-17-2023 ezetimibe (Zetia) 10 MG tablet 08/17/2023 Active fenofibrate 145 mg oral tablet (15 sources) Peroxisome Proliferator Receptor alpha Agonist take 1 tablet by mouth once daily fenofibrate (Tricor) 145 MG tablet Take 145 mg by mouth Daily Active fluconazole 100 mg oral tablet (7 sources) Azole Antifungal Start: 04-18-2025 fluconazole (Diflucan) 100 M G tablet Indications: Chronic myringitis of left ear , Other infective chronic otitis externa of left ear 2 pills day one and then one pill daily for 13 days 15 tablet 04/18/2025 Active hydrocortisone 10 mg/ml / neomycin 3.5 mg/ml / polymyxin b 29744 unt/ml otic suspension (10 sources) Aminoglycoside Antibacterial, Polymyxin-class Antibacterial, Corticosteroid Start: 07-01-2023 End: 04-18-2025 jpbipckf-nrjoxdbed-rysthziea i sone (Cortisporin) 3.5-18123-8 otic suspension every 8 (eight) hours 07/01/2023 04/18/2025 Discontinued (Therapy completed) irbesartan 150 mg oral tablet (15 sources) Angiotensin 2 Receptor Mario take 1 tablet by mouth once daily irbesartan (Avapro) 150 MG tablet Take 150 mg by mouth Daily Active 24 hr isosorbide mononitrate 120 mg extended release oral tablet (15 sources) Nitrate Vasodilator Start: 08-17-2023 isosorbide mononitrate ER (Imdur) 120 MG 24 hr tablet Take 120 mg by mouth 08/17/2023 Active 24 hr metoprolol succinate 100 mg extended release oral tablet (15 sources) beta-Adrenergic Mario take 1 tablet by mouth once daily metoprolol succinate XL (Toprol-XL) 100 MG 24 hr tablet Take 100 mg by mouth Daily Active omeprazole 40 mg delayed release oral capsule (15 sources) Proton Pump Inhibitor omeprazole (PriLOSEC ) [address] capsule Active oxaprozin 600 mg oral tablet (3 sources) Nonsteroidal Anti-inflammatory Drug End: 05-30-2024 take 1 tablet by mouth every twenty-fo ur hours as needed oxaprozin (Daypro) 600 MG tablet 600 mg Daily as needed 05/30/2024 Discontinued 12 hr ranolazine 1000 mg extended release oral tablet (15 sources) Anti-anginal take 1 tablet by mouth every twelve hours in the morning ranolazine (Ranexa) 1000 MG 12 hr tablet Take 1 tablet by mouth in the morning and 1 tablet before bedtime. Active triamcinolone acetonide 1 mg/ml topical cream (13 sources) Corticosteroid Start: 12-04-2024 triamcinolone (Kenalog) 0.1 [...] Chronic Coronary atherosclerosis and other heart disease (16 sources) Coronary atherosclerosis due to lipid rich plaque; Translations: [Angina pectoris with documented spasm] Onset: 12-18-2021 Chronic Disorders of lipid metabolism (20 sources) Mixed hyperlipidemia; Translations: [Pure hypercholesterolemia, unspecified] Onset: 12-06-2017 Chronic Diverticulosis and diverticulitis (11 sources) Diverticular disease; Translations: [Diverticulosis of intestine, part unspecified, without perforation or abscess without bleeding] Onset: 09-04-2022 11-08-2024 Chronic Esophageal disorders (12 sources) Gastro-esophageal reflux disease without esophagitis; Translations: [Gastroesophageal reflux disease] Onset: 12-06-2017 11-08-2024 Chronic Essential hypertension (14 sources) Essential (primary) hypertension; Translations: [Essential hypertension] Onset: 12-06-2017 Chronic Gout and other crystal arthropathies (14 sources) Gouty tophus; 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, unspecified, with tophus (tophi)] Onset: 05-30-2024 05-30-2024 Chronic Hypertension with complications and secondary hypertension (11 sources) Hypertensive left ventricular hypertrophy; Translations: [Hypertensive heart disease without heart failure] Onset: 09-04-2022 11-08-2024 Chronic Other aftercare (1 source) [facility] (current) use of aspirin; Translations: [CORRECTION CURRENT USE OF ASPIRIN] Onset: 09-03-2022 Episodic Other aftercare (1 source) Other nursing home (current) drug therapy; Translations: [OTH CORRECTION CURRENT DRUG THERAPY] Onset: 09-03-2022 Episodic Other and unspecified benign neoplasm (2 sources) Melanocytic nevus of trunk; Translations: [Melanocytic nevi of trunk] 12-04-2024 Episodic Other and unspecified benign neoplasm (2 sources) Lipoma of skin and subcutaneous tissue of neck; Translations: [Benign lipomatous neoplasm of skin and subcutaneous tissue of head, face and neck] 04-24-2025 Episodic Other connective tissue disease (11 sources) History of total arthroplasty of left shoulder; Translations: [Presence of left artificial shoulder joint] Onset: 10-27-2021 11-08-2024 Chronic Other diseases of veins and lymphatics (2 sources) Disorder of vein of lower extremity; Translations: [Venous insufficiency (chronic) (peripheral)] 12-04-2024 Episodic Other ear and sense organ disorders (4 sources) Chronic left myringitis; Translations: [Chronic myringitis, left ear] 04-18-2025 Chronic Other ear and sense organ disorders (4 sources) Chronic infective otitis externa; Translations: [Other [...] Lentiginosis; Translations: [Other melanin hyperpigmentation] 12-04-2024 Episodic Otitis media and related conditions (2 sources) Perforation of left tympanic membrane; Translations: [Unspecified perforation of tympanic membrane, left ear] 04-24-2025 Episodic Residual codes; unclassified (1 source) Sleep apnea, unspecified; Translations: [SLEEP APNEA UNSPECIFIED] Onset: 09-03-2022 Chronic Residual codes; unclassified (1 source) Acquired absence of other specified parts of digestive tract; Translations: [ACQ ABSENCE OTH PART DIGESTV TRACT] Onset: 09-03-2022 Episodic Thyroid disorders (18 sources) Non-toxic multinodular goiter; Translations: [Nontoxic multinodular goiter] Onset: 05-30-2024 05-30-2024 Chronic Unclassified (1 source) CONTACT W/AND (SUSP) EXPOS COVID-19; Translations: [CONTACT W/AND (SUSP) EXPOS COVID-19] Onset: 09-03-2022 Past or Other Problems Problem Classification Problem Date Documented Date Episodic/Chronic Noninfectious gastroenteritis (11 sources) Gastroenteritis; Translations: [Noninfective gastroenteritis and colitis, unspecified] Onset: 09-04-2022 11-08-2024 Episodic Nonspecific chest pain (15 sources) Chest pain, unspecified; Translations: [Other chest pain] Onset: 09-02-2022 Episodic Other lower respiratory disease (4 sources) Dyspnea, unspecified; Translations: [DYSPNEA UNSPECIFIED] Onset: 12-17-2021 Episodic Other screening for suspected conditions (not mental disorders or infectious disease) (11 sources) Cardiovascular stress test abnormal; Translations: [Abnormal result of other cardiovascular function study] Onset: 09-04-2022 11-08-2024 Episodic Other skin disorders (16 sources) Mass of neck; Translations: [Localized swelling, mass and lump, neck] Onset: 05-30-2024 05-30-2024 Episodic Results Test Name Value Interpretation Reference Range Facility US Thyroid [place] [address] [address] Ultrasound Report Signed Patient: KARLA MCCOLLUM MR#: [id number] : 1950 Acct:[id number] Age/Sex: 75 / M ADM Date: 04/23/25 Loc: US Attending Dr: Sadaf Malhotra M.D. Ordering Physician: Sadaf Malhotra M.D. Date of Service: 04/23/25 Procedure(s): US thyroid Accession Number(s): [id number] cc: Hoa Tran M.D.; Sadaf Malhotra M.D. [address] [address] Patient Name: KARLA MCCOLLUM MRN: [facility]:[id number] date: 1950 Sex: M Assigned Patient Location: US Current Patient Location: US Accession/Order Number: [id number] Exam Date: 04/23/2025 08:47 Report Date: 04/23/2025 09:35 At the request of: SADAF MALHOTRA MD Procedure: US thyroid THYROID ULTRASOUND COMPARISON: 10/30/2024 and 05/05/2024 CLINICAL DATA: Follow-up multinodular goiter The right thyroid lobe measures 4.4 x 1.5 x 1.8 cm. The left lobe measures 4.1 x 1.3 x 1.6 cm. The isthmus measures 6 mm. Thyroid echotexture is mildly heterogeneous. At the superior pole the right, there is still a hypoechoic nodule measuring 4 x 5 x 5 mm. A nodule at the lower pole on the prior is not seen today. On the left, additional small hypoechoic nodules are again seen. There are 2 hypoechoic nodules in close proximity the superior pole measuring 7 x 4 x 4 mm and 4 x 3 x 4 mm . At the inferior pole, there is another hypoechoic nodule that measures 7 x 5 x 5 mm. US/US thyroid IMPRESSION: CONTINUED SUBCENTIMETER BILATERAL THYROID NODULES, GREATER ON THE LEFT. Impression dictated by: Tonie Baldwin M.D. 04/23/2025 9:35 AM Dictation Location: [place] [address] Electronically authenticated by: [id number] Y Date: 04/23/2025 09:35 Dictated By: Tonie Baldwin M.D. Signed By: 04/23/2538 DD/ TD/TT: Winding Machine Operator: [facility] Radiology, Radiologist, - 04/23/2025 [place] [address] Ultrasound Report Signed Patient: KARLA MCCOLLUM MR#: [id number] : 1950 Acct:[id number] Age/Sex: 75 / M ADM Date: 04/23/25 Loc: US Attending Dr: Sadaf Malhotra M.D. Ordering Physician: Sadaf Malhotra M.D. Date of Service: 04/23/25 Procedure(s): US thyroid Accession Number(s): [id number] cc: Hoa Tran M.D.; Sadaf Malhotra M.D. [address] [place] [address] Patient Name: KARLA MCCOLLUM MRN: [id number] date: 1950 Sex: M Assigned Patient Location: US Current Patient Location: US Accession/Order Number: [id number] Exam Date: 04/23/2025 08:47 Report Date: 04/23/2025 09:35 At the request of: SADAF MALHOTRA MD Procedure: US thyroid THYROID ULTRASOUND COMPARISON: 10/30/2024 and 05/05/2024 CLINICAL DATA: Follow-up multinodular goiter The right thyroid lobe measures 4.4 x 1.5 x 1.8 cm. The left lobe measures 4.1 x 1.3 x 1.6 cm. The isthmus measures 6 mm. Thyroid echotexture is mildly heterogeneous. At the superior pole the right, there is still a hypoechoic nodule measuring 4 x 5 x 5 mm. A nodule at the lower pole on the prior is not seen today. On the left, additional small hypoechoic nodules are again seen. There are 2 hypoechoic nodules in close proximity the superior pole measuring 7 x 4 x 4 mm and 4 x 3 x 4 mm . At the inferior pole, there is another hypoechoic nodule that measures 7 x 5 x 5 mm. US/US thyroid IMPRESSION: CONTINUED SUBCENTIMETER BILATERAL THYROID NODULES, GREATER ON THE LEFT. Impression dictated by: Tonie Baldwin M.D. 04/23/2025 9:35 AM Dictation Location: [place] [address] Electronically authenticated by: [id number] Y Date: 04/23/2025 09:35 Dictated By: Tonie Baldwin M.D. Signed By: 04/23/2538 DD/ 4 TD/TT: Winding Machine Operator: [facility] Radiology Study observation (narrative) [facility] US Thyroid glandOrdered By: Radiologist Radiology on 04-23-2025 [facility] Work Phone: No Panel InformationOrdered By: Nery Goncalves on 12-04-2024 [facility] Healthcare Office Visiton 11-20-2024 Follow-up visit [id number] Karla Mccollum 1950 M Date Provider Department Center 11/20/2024 NELI THRASHER [facility] Family History Problem Relation Age of Onset Hypertension Mother Cancer Father Family Status - Relation Status Age at Mother Father Sister Alive Brother Alive Level of Service:71432 [place] OFFICE/OUTPATIENT ESTABLISHED LOW MDM 20 MIN Normal [facility] [place] [address] Ultrasound Report Signed Patient: KARLA MCCOLLUM MR#: [id number] : 1950 Acct:[id number] Age/Sex: 74 / M ADM Date: 10/30/24 Loc: US Attending Dr: Sadaf Malhotra M.D. Ordering Physician: Sadaf Malhotra M.D. Date of Service: 10/30/24 Procedure(s): US thyroid Accession Number(s): [id number] cc: Hoa Tran M.D.; Sadaf Malhotra M.D. [place] [address] Patient Name: KARLA MCCOLLUM MRN: [id number] date: 1950 Sex: M Assigned Patient Location: Current Patient Location: US Accession/Order Number: [id number] Exam Date: 10/30/2024 10:53 Report Date: 10/30/2024 [...] Stoner Jr., D.O.10/30/2024 10:57 AM Dictation Location: [place] [address] Electronically authenticated by: [id number] Y Date: 10/30/2024 10:57 Dictated By: Dylan Stoner M.D. Signed By: 10/30/24 1100 DD/ 1057 TD/TT: Winding Machine Operator: [facility] Radiology, Radiologist, MD - 10/30/2024 [place] [address] Ultrasound Report Signed Patient: KARLA MCCOLLUM MR#: [id number] : 1950 Acct:[id number] Age/Sex: 74 / M ADM Date: 10/30/24 Loc: US Attending Dr: Sadaf Malhotra M.D. Ordering Physician: Sadaf Malhotra M.D. Date of Service: 10/30/24 Procedure(s): US thyroid Accession Number(s): [id number] cc: Hoa Tran M.D.; Sadaf Malhotra M.D. The [place] [id number] Patient Name: KARLA MCCOLLUM MRN: [facility]:[id number] date: 1950 Sex: M Assigned Patient Location: US Current Patient Location: US Accession/Order Number: [id number] Exam Date: 10/30/2024 10:53 Report Date: 10/30/2024 [...] Stoner Jr., D.O.10/30/2024 10:57 AM Dictation Location: [facility] Electronically authenticated by: [id number] Y Date: 10/30/2024 10:57 Dictated By: Dylan Stoner M.D. Signed By: 10/30/24 1100 DD/ 1057 TD/TT: Winding Machine Operator: [facility] Radiology Study observation (narrative) [facility] US Thyroid glandOrdered By: Radiologist Radiology on 10-30-2024 [facility] Work Phone: Rudolph 05-15-2024 L Specimen: [id number] Received: 05/17/24 Status: EDWINA Spears Num: [id number] Spec Type: Cytology Subm Dr: Hoa Tran MD Tissues: A FNA SLIDES NOPATH (RT THY) B FNA SLIDES NOPATH (LT THY) Procedures: Cyto Int and Re/2, PAPSTN/10 Age/ Patient Sex Location Account Attending Physician Karla Mccollum/M LABELL [id number] Hoa Tran MD SPEC NUM: [id number] RECD: 05/17/24 STATUS: EDWINA SPEARS NUM: [id number] SEAN: 05/15/24- DR: Hoa Tran MD ENTERED: 05/17/[address]: Elisha Pearson MD SPEC TYPE: Cytology DEPT: GREG MORRISON ENTERED BY: [id number] RECV BY: [id number] ORDERED: Cyto Int and Re/2, PAPSTN/10 ORDERED: Cyto Int and Re/2, PAPSTN/10 Pathological Diagnosis A. Right thyroid, inferior nodule, fine needle aspiration: - Unsatisfactory for evaluation due to scant cellularity. - Scant watery colloid, non-diagnostic ([place] Category:I). B. Left thyroid, inferior nodule, fine needle aspiration: - Unsatisfactory for evaluation due to scant cellularity. - Scant watery colloid and blood, non-diagnostic ([place] Category:I). Comment: Recommend repeat thyroid FNA as [...] vial stored at -20 microscopic examination. (/ne) Specimen: [id number] Received: 05/17/24 Status: EDWINA Spears Num: [id number] Spec Type: Cytology Subm Dr: Hoa Tran MD Tissues: A FNA SLIDES NOPATH (RT THY) B FNA SLIDES NOPATH (LT THY) Procedures: Cyto Int and Re/2, PAPSTN/10 Patient: Karla Mccollum [id number] (Continued) Specimen: [id number] Received: 05/17/24 (Continued) Gross Description (Continued) Signed (signature on file) Rajesh Ridley MD 05/18/24 1609 Specimen: [id number] Received: 05/17/24 Status: EDWINA Spears Num: [id number] Spec Type: Cytology Subm Dr: Hoa Tran MD Tissues: A FNA SLIDES NOPATH (RT THY) B FNA SLIDES NOPATH (LT THY) Procedures: Cyto Int and Re/2, PAPSTN/10 Patient: Karla Mccollum [id number] (Continued) Specimen: [id number] Received: 05/17/24 (Continued) Gross Description (Continued) B. [...] B: Microscopic examination is performed. CPT Codes 41536 x2, 64855 x2 Specimen: [id number] Received: 05/17/24 Status: EDWINA Spears Num: [id number] Spec Type: Cytology Subm Dr: Hoa Tran MD Tissues: A FNA SLIDES NOPATH (RT THY) B FNA SLIDES NOPATH (LT THY) Procedures: Cyto Int and Re/2, PAPSTN/10 Patient: Karla Mccollum [id number] (Continued) Signed (signature on file) Rajesh Ridley MD 05/18/[address] [facility] Office Visiton 12-22-2023 Follow-up visit [id number] Karla Mccollum 1950 M Date Provider Department Center 12/22/2023 [facility]-NELI STERN VERA Antony Family History Problem Relation Age of Onset Hypertension Mother Family Status - Relation Status Age at Mother Level of Service:11023 [place] OFFICE/OUTPATIENT ESTABLISHED LOW MDM 20 MIN Normal [facility] Rudolph 12-15-2023 L Specimen: [id number] Received: 12/16/23 Status: SOUYamilex Req Num: [id number] Spec Type: Cytology Subm Dr: Bismark Redd MD Tissues: A FNA SLIDES NOPATH (LT SUBMENT MASS) Procedures: HE/2, Cyto Int and Re, PAPSTN/7 Age/ Patient Sex Location Account Attending Physician Karla Mccollum 73/M LABELL [id number] Bismark Redd MD SPEC NUM: [id number] RECD: 12/16/23 STATUS: EDWINA FISHERQ NUM: [id number] SEAN: 12/15/23- SUBM DR: Bismark Redd MD ENTERED: 12/16/[address] [facility] DR: Lili,[facility] Hoa Tran MD SPEC TYPE: Cytology DEPT: GREG NCYT ENTERED BY: [id number] RECV BY: [id number] ORDERED: HE/2, Cyto Int and Re, PAPSTN/7 [...] pap are additionally received. (CC/nh) CPT Codes 44903 Specimen: [id number] Received: 12/16/23 Status: EDWINA Spears Num: [id number] Spec Type: Cytology Subm Dr: Bismark Redd MD Tissues: A FNA SLIDES NOPATH (LT SUBMENT MASS) Procedures: HE/2, Cyto Int and Re PAPSTN/7 Patient: Karla Mccollum [id number] (Continued) Signed (signature on file) Bismark Quiñonez MD 12/17/[address] [facility] LIPID PROFILEon 11-24-2022 CHOL-HDL RATIO NORM SEE BELOW Normal [facility] Comment on above: Result Comment: 3.3 - 4.4 LOW RISK 4.4 - 7.1 AVERAGE RISK 7.1 - 11.0 MODERATE RISK >11.0 HIGH RISK Performed By: #### L IPID #### [facility] [address] [place] [address] [address] Paige Tee Cholesterol [Mass/Vol] 151 mg/dL Normal <=200 [facility] Comment on above: Performed By: #### L IPID #### [facility] [address] [place] [address] [address] Paige Tee Cholesterol in HDL [Mass/Vol] 40 mg/dL Normal 40-60 [facility] Comment on above: Performed By: #### L IPID #### [facility] [address] [place] [address] [address] Paige Tee Cholesterol in LDL [Mass/Vol] 87.4 mg/dL Normal [facility] Comment on above: Performed By: #### L IPID #### [facility] [address] [place] [address] [address] Paige Tee Cholesterol.total/Chol esterol in HDL [Mass ratio] 3.8 {ratio} Normal [facility] Comment on above: Performed By: #### L IPID #### [facility] [address] [place] [address] [address] Paige Tee HDL NORMAL > or = 60 mg/dl - LOW CARDIOVASCULAR RISK <40 mg/dl - HIGH CARDIOVASCULAR RISK Normal [facility] Comment on above: Performed By: #### L IPID #### [facility] [address] [place] [address] [address] Paige Tee LDL CALC NORMAL SEE BELOW Normal [facility] Comment on above: Result Comment: <100 mg/dl OPTIMAL 100 - 129 mg/dl NEAR OR ABOVE OPTIMAL 130 - 159 mg/dl BORDERLINE HIGH 160 - 189 mg/dl HIGH >190 mg/dl VERY HIGH Performed By: #### L IPID #### [facility] [address] [place] [address] Dr. Paige Tee Triglyceride [Mass/Vol] 118 mg/dL Normal <=150 [facility] Comment on above: Performed By: #### L IPID #### [facility] [address] [place] [address] Dr. Paige Tee VLDL CALC 23.6 mg/dL Normal [facility] Comment on above: Performed By: #### L IPID #### [facility] [address] [place] [address] [address] Paige Tee CBC AUTO DIFFon 09-02-2022 BASO # 0.1 103/ul Normal 0.0-0.1 [facility] Comment on above: Performed By: #### C BC #### [facility] [address] [place] [address] Dr. Paige Tee Basophils/100 WBC (Bld) 0.6 % Normal 0.2-2.0 [facility] Comment on above: Performed By: #### C BC #### [facility] [address] [place] [address] Dr. Paige Tee EO # 0.4 103/ul Normal 0.0-0.7 [facility] Comment on above: Performed By: #### C BC #### [facility] [address] [place] [address] Dr. Paige Tee Eosinophils/100 WBC (Bld) 4.0 % Normal 0.9-7.0 [facility] Comment on above: Performed By: #### C BC #### [facility] [address] [place] [address] Dr. Paige Tee Erythrocyte distribution width (RBC) [Ratio] 13.8 % Normal 11.0-15.0 [facility] Comment on above: Performed By: #### C BC #### [facility] [address] [place] [address] Dr. Paige Tee Hematocrit (Bld) [Volume fraction] 35.9 % Critically low 42.0-54.0 [facility] Comment on above: Performed By: #### C BC #### [facility] [address] [place] [address] Dr. Paige Tee Hemoglobin (Bld) [Mass/Vol] 11.9 g/dL Critically low 14.0-18.0 [facility] Comment on above: Performed By: #### C BC #### [facility] [address] [place] [address] Dr. Paige Tee IG # 0.04 10e3/ul Critically high 0.00-0.03 [facility] Comment on above: Performed By: #### C BC #### [facility] [address] [place] [address] Dr. Paige Tee IG % 0.4 % Normal 0.0-0.5 [facility] Comment on above: Performed By: #### C BC #### [facility] [address] [place] [address] Dr. Paige Tee LYMPH # 3.2 103/ul Normal 1.2-3.8 [facility] Comment on above: Performed By: #### C BC #### [facility] [address] [place] [address] Dr. Paige Tee Lymphocytes/100 WBC (Bld) 30.0 % Normal 20.5-60.0 [facility] Comment on above: Performed By: #### C BC #### [facility] [address] [place] [address] Dr. Paige Tee MANUAL DIFF REQ NO Normal [facility] Comment on above: Performed By: #### C BC #### [facility] [address] [place] [address] Dr. Paige Tee MCH (RBC) [Entitic mass] 27.9 pg Normal 25.9-34.0 [facility] Comment on above: Performed By: #### C BC #### [facility] [address] [place] [address] Dr. Paige Tee MCHC (RBC) [Mass/Vol] 33.1 g/dL Normal 29.9-35.2 [facility] Comment on above: Performed By: #### C BC #### [facility] [address] [address] [address] Paige Tee MCV (RBC) [Entitic vol] 84.3 fL Normal 80.0-94.0 [facility] Comment on above: Performed By: #### C BC #### [facility] [address] [address] [address] Paige Tee MONO # 0.8 103/ul Normal 0.3-0.8 [facility] Comment on above: Performed By: #### C BC #### [facility] [address] [address] [address] Paige Tee Monocytes/100 WBC (Bld) 7.5 % Normal 1.7-12.0 [facility] Comment on above: Performed By: #### C BC #### [facility] [address] [place] [address] Dr. Paige Tee NEUT # 6.2 103/ul Normal 1.4-6.5 [facility] Comment on above: Performed By: #### C BC #### [facility] [address] [place] [address] Dr. Paige Tee Neutrophils/100 WBC (Bld) 57.5 % Normal 43.0-75.0 [facility] Comment on above: Performed By: #### C BC #### [facility] [address] [place] [address] Dr. Paige Tee Platelet mean volume (Bld) [Entitic vol] 9.5 fL Normal 9.5-13.5 [facility] Comment on above: Performed By: #### C BC #### [facility] [address] [place] [address] Dr. Paige Tee PLT 314 103/ul Normal 150-450 [facility] Comment on above: Performed By: #### C BC #### [facility] [address] [id number] Paige Tee RBC 4.26 106/ul Critically low 4.70-6.10 [facility] Comment on above: Performed By: #### C BC #### [facility] [address] [place] [address] Dr. Paige Tee WBC 10.8 103/ul Normal 4.0-11.0 [facility] Comment on above: Performed By: #### C BC #### [facility] [address] [place] [address] Dr. Paige Tee Covid-19 PCR (CVDTB)on 08-16 SARS-CoV-2 (COVID-19) RNA UMER+probe Ql (Unsp spec) Not detected Normal NOT DETECTED [facility] Comment on above: Result Comment: [...] for this test is supported by the [place] of Health and Human Service's declaration that [...] #### C VDTBH #### [facility] [address] [place] [address] Dr. Paige Tee PROF CHEM 8 (BAS METB)on Anion gap [Moles/Vol] 13.7 mmol/L Normal [facility] Comment on above: Performed By: #### H STROPN, BMP #### [facility] [address] [place] [address] Dr. Paige Tee Calcium [Mass/Vol] 9.1 mg/dL Normal 8.5-10.1 [facility] Comment on above: Performed By: #### H STROPN, BMP #### [facility] [address] [place] [address] Dr. Paige Tee Chloride [Moles/Vol] 104 mmol/L Normal 98-107 [facility] Comment on above: Performed By: #### H STROPN, BMP #### [facility] [address] [address] [address] Paige Tee CO2 [Moles/Vol] 24.4 mmol/L Normal 21.0-32.0 [facility] Comment on above: Performed By: #### H STROPN, BMP #### [facility] [address] [address] [address] Paige Tee Creatinine [Mass/Vol] 1.11 mg/dL Normal 0.70-1.30 [facility] Comment on above: Performed By: #### H STROPN, BMP #### [facility] [address] [place] [address] Dr. Paige Tee EGFR-AF NORTHER[place] IRISH >60 Normal >=60 [facility] Comment on above: Performed By: #### H STROPN, BMP #### [facility] [address] [place] [address] Dr. Paige Tee EGFR-NON AF [place]THER[place] >60 Normal >=60 [facility] Comment on above: Performed By: #### H STROPN, BMP #### [facility] [address] [place] [address] Dr. Paige Tee Glucose [Mass/Vol] 115 mg/dL Critically high 74-106 [facility] Comment on above: Performed By: #### H STROPN, BMP #### [facility] [address] [place] [address] Dr. Paige Tee Potassium [Moles/Vol] 4.1 mmol/L Normal 3.5-5.1 [facility] Comment on above: Performed By: #### H STROPN, BMP #### [facility] [address] [place] [address] Dr. Paige Tee Sodium [Moles/Vol] 138 mmol/L Normal 136-145 [facility] Comment on above: Performed By: #### H STROPN, BMP #### [facility] [address] [place] [address] Dr. Paige Tee Urea nitrogen [Mass/Vol] 20.0 mg/dL Critically high 7.0-18.0 [facility] Comment on above: Performed By: #### H TAMMI, NOE #### [facility] [address] [place] [address] Dr. Paige Tee Urea nitrogen/Creatinine [Mass ratio] 18.0 mg/mg Normal [facility] Comment on above: Performed By: #### H TAMMI, NOE #### [facility] [address] [place] [address] Dr. Paige Tee TROPONIN, HIGH SENSITIVITYon 09-02-2022 HSTROP 4.1 pg/mL Normal 4.0-76.1 [facility] Comment on above: Result Comment: CUT- OFF POINTS HAVE BEEN ESTABLISHED BASED ON THE FOURTH UNIVERSAL DEFINITIONS OF MYOCARDIAL INFARCTION. THE UPPER REFERENCE LIMIT (URL) OF TROPONIN, DEFINED THE 99TH PERCENTILE OF cTnI DISTRIBUTION IN A REFERENCE POPULATION, HAS BEEN CONFIRMED THE DECISION THRESHOLD FOR [place] DIAGNOSIS. Performed By: #### H TAMMI #### [facility] [address] [place] [address] Dr. Paige Tee HSTROP 4.5 pg/mL Normal 4.0-76.1 [facility] Comment on above: Result Comment: CUT- OFF POINTS HAVE BEEN ESTABLISHED BASED ON THE FOURTH UNIVERSAL DEFINITIONS OF MYOCARDIAL INFARCTION. THE UPPER REFERENCE LIMIT (URL) OF TROPONIN, DEFINED THE 99TH PERCENTILE OF cTnI DISTRIBUTION IN A REFERENCE POPULATION, HAS BEEN CONFIRMED THE DECISION THRESHOLD FOR FL DIAGNOSIS. Performed By: #### H TAMMI, NOE #### [facility] [address] [place] [address] Dr. Paige Tee XR CHEST 1 Von [...] by: BISMARK REDD Date: 2022-09-02 12:29 Normal [facility] NM STRESS/REST MULTIon 12-17 NM STRESS/REST MULTI Patient: KARLA MCCOLLUM Exam Date: 12/17/2021 : 1950 Gender:M Ordering : DR HOA TRAN . Admission #: [id number] Family : Order #: [id number] CLICK HERE TO VIEW EXAM RADIOLOGY REPORT [...] Redd MD on 12/18/2021 at 09:10 Normal [facility] BASIC METABOLIC PANELon 09-17 Calcium [Mass/Vol] 8.9 mg/dL Normal 8.6-10.3 [facility] Comment on above: Order Comment: No: D o not add to previous draw Performed By: #### 0 0071 #### [facility] [address] [place] [address], [place] Chloride [Moles/Vol] 105 mmol/L Normal 98-107 [facility] Comment on above: Order Comment: No: D o not add to previous draw Performed By: #### 0 0071 #### [facility] [address] [place] [address], [place] CO2 [Moles/Vol] 25 mmol/L Normal 21-31 [facility] Comment on above: Order Comment: No: D o not add to previous draw Performed By: #### 0 0071 #### [facility] [address] [place] [address], [place] Creatinine [Mass/Vol] 0.82 mg/dL Normal 0.70-1.30 [facility] Comment on above: Order Comment: No: D o not add to previous draw Performed By: #### 0 0071 #### [facility] [address] [place] [address], [place] GFR/1.73 sq M predicted among blacks MDRD (S/P/Bld) [Vol rate/Area] mL/min/{1.73_m2} Normal >60 [facility] Comment on above: Order Comment: No: D o not add to previous draw Performed By: #### 0 0071 #### [facility] [address] [place] [address], [place] GFR/1.73 sq M predicted among non-blacks MDRD (S/P/Bld) [Vol rate/Area] mL/min/{1.73_m2} Normal >60 [facility] Comment on above: Order Comment: No: D o not add to previous draw Performed By: #### 0 0071 #### [facility] [address] [place] [address], [place] Glucose [Mass/Vol] 104 mg/dL High 70-100 [facility] Comment on above: Order Comment: No: D o not add to previous draw Performed By: #### 0 0071 #### [facility] [address] [place] [address], [facility] Potassium [Moles/Vol] 3.6 mmol/L Normal 3.5-5.1 [facility] Comment on above: Order Comment: No: D o not add to previous draw Performed By: #### 0 0071 #### [facility] [address] [place] [address], [place] Sodium [Moles/Vol] 137 mmol/L Normal 136-145 [facility] Comment on above: Order Comment: No: D o not add to previous draw Performed By: #### 0 0071 #### [facility] [address] [place] [address], [facility] Urea nitrogen [Mass/Vol] 13 mg/dL Normal 7-25 [facility] Comment on above: Order Comment: No: D o not add to previous draw Performed By: #### 0 0071 #### [facility] [address] [place] [address], [facility] CBC COMPLETE BLOOD COUNTon 0 10-12-2020 Erythrocyte distribution width (RBC) [Ratio] 13.1 % Normal 11.5-15.0 [facility] Comment on above: Order Comment: No: D o not add to previous draw Performed By: #### 3 0 #### [facility] [address] [place] [address], [facility] Hematocrit (Bld) [Volume fraction] 36.6 % Low 39.0-50.0 [facility] Comment on above: Order Comment: No: D o not add to previous draw Performed By: #### 3 5200 #### [facility] [address] [place] [address], [facility] Hemoglobin (Bld) [Mass/Vol] 11.6 g/dL Low 13.0-17.0 [facility] Comment on above: Order Comment: No: D o not add to previous draw Performed By: #### 3 5200 #### [facility] [address] [place] [address], [facility] MCH (RBC) [Entitic mass] 28.1 pg Normal 27.0-33.0 [facility] Comment on above: Order Comment: No: D o not add to previous draw Performed By: #### 3 5200 #### [facility] [address] [place] [address], [facility] MCHC (RBC) [Mass/Vol] 31.7 g/dL Low 32.0-35.0 [facility] Comment on above: Order Comment: No: D o not add to previous draw Performed By: #### 3 5200 #### [facility] [address] [place] [id number], [facility] MCV (RBC) [Entitic vol] 88.6 fL Normal 82.0-98.0 [facility] Comment on above: Order Comment: No: D o not add to previous draw Performed By: #### 3 5200 #### [facility] [address] [place] [id number], [facility] Nucleated RBC/100 WBC (Bld) [Ratio] 0 % Normal 0-0 [facility] Comment on above: Order Comment: No: D o not add to previous draw Performed By: #### 3 5200 #### [facility] [address] [place] [address], [facility] PLAT CNT 289 10*3/uL Normal 150-400 [facility] Comment on above: Order Comment: No: D o not add to previous draw Performed By: #### 3 5200 #### [facility] [address] [place] [id number], [facility] RBC (Bld) [#/Vol] 4.13 10*6/uL Low 4.20-5.70 [facility] Comment on above: Order Comment: No: D o not add to previous draw Performed By: #### 3 5200 #### [facility] [address] [place] [address], [facility] WBC (Bld) [#/Vol] 10.27 10*3/uL Normal 4.00-10.60 [facility] Comment on above: Order Comment: No: D o not add to previous draw Performed By: #### 3 5200 #### [facility] [address] [place] [address], [facility] BASIC METABOLIC PANELon 09-17 Calcium [Mass/Vol] 9.2 mg/dL Normal 8.6-10.3 [facility] Comment on above: Order Comment: No: D o not add to previous draw Performed By: #### 0 0071 #### [facility] [address] [place] [address], [facility] Chloride [Moles/Vol] 106 mmol/L Normal 98-107 [facility] Comment on above: Order Comment: No: D o not add to previous draw Performed By: #### 0 0071 #### [facility] [address] [place] [address], [facility] CO2 [Moles/Vol] 27 mmol/L Normal 21-31 [facility] Comment on above: Order Comment: No: D o not add to previous draw Performed By: #### 0 0071 #### [facility] [address] [place] [address], [facility] Creatinine [Mass/Vol] 0.84 mg/dL Normal 0.70-1.30 [facility] Comment on above: Order Comment: No: D o not add to previous draw Performed By: #### 0 0071 #### [facility] [address] [place] [address], [facility] GFR/1.73 sq M predicted among blacks MDRD (S/P/Bld) [Vol rate/Area] mL/min/{1.73_m2} Normal >60 [facility] Comment on above: Order Comment: No: D o not add to previous draw Performed By: #### 0 0071 #### [facility] [address] [place] [address], [facility] GFR/1.73 sq M predicted among non-blacks MDRD (S/P/Bld) [Vol rate/Area] mL/min/{1.73_m2} Normal >60 [facility] Comment on above: Order Comment: No: D o not add to previous draw Performed By: #### 0 0071 #### [facility] [address] [place] [address], [facility] Glucose [Mass/Vol] 101 mg/dL High 70-100 [facility] Comment on above: Order Comment: No: D o not add to previous draw Performed By: #### 0 0071 #### [facility] [address] [place] [address], [facility] Potassium [Moles/Vol] 3.8 mmol/L Normal 3.5-5.1 [facility] Comment on above: Order Comment: No: D o not add to previous draw Performed By: #### 0 0071 #### [facility] [address] [place] [address], [facility] Sodium [Moles/Vol] 139 mmol/L Normal 136-145 [facility] Comment on above: Order Comment: No: D o not add to previous draw Performed By: #### 0 0071 #### [facility] [address] [place] [address], [facility] Urea nitrogen [Mass/Vol] 15 mg/dL Normal 7-25 [facility] Comment on above: Order Comment: No: D o not add to previous draw Performed By: #### 0 0071 #### [facility] [address] [place] [address], [facility] CBC COMPLETE BLOOD COUNTon 0 - Erythrocyte distribution width (RBC) [Ratio] 12.9 % Normal 11.5-15.0 [facility] Comment on above: Order Comment: No: D o not add to previous draw Performed By: #### 3 5200 #### [facility] [address] [place] [address], [facility] Hematocrit (Bld) [Volume fraction] 38.6 % Low 39.0-50.0 [facility] Comment on above: Order Comment: No: D o not add to previous draw Performed By: #### 3 5200 #### [facility] [address] [place] [address], [facility] Hemoglobin (Bld) [Mass/Vol] 12.3 g/dL Low 13.0-17.0 [facility] Comment on above: Order Comment: No: D o not add to previous draw Performed By: #### 3 5200 #### [facility] [address] [place] [id number], [facility] MCH (RBC) [Entitic mass] 28.5 pg Normal 27.0-33.0 [facility] Comment on above: Order Comment: No: D o not add to previous draw Performed By: #### 3 5200 #### [facility] [address] [facility] [place] [address], [facility] MCHC (RBC) [Mass/Vol] 31.9 g/dL Low 32.0-35.0 [facility] Comment on above: Order Comment: No: D o not add to previous draw Performed By: #### 3 5200 #### [facility] [address] [facility] [place] [address], [facility] MCV (RBC) [Entitic vol] 89.6 fL Normal 82.0-98.0 [facility] Comment on above: Order Comment: No: D o not add to previous draw Performed By: #### 3 5200 #### [facility] [address] [place] [address], [facility] Nucleated RBC/100 WBC (Bld) [Ratio] 0 % Normal 0-0 [facility] Comment on above: Order Comment: No: D o not add to previous draw Performed By: #### 3 5200 #### [facility] [address] [place] [address], [facility] PLAT CNT 279 10*3/uL Normal 150-400 [facility] Comment on above: Order Comment: No: D o not add to previous draw Performed By: #### 3 5200 #### [facility] [address] [place] [address], [facility] RBC (Bld) [#/Vol] 4.31 10*6/uL Normal 4.20-5.70 [facility] Comment on above: Order Comment: No: D o not add to previous draw Performed By: #### 3 5200 #### [facility] [address] [place] [address], [facility] WBC (Bld) [#/Vol] 10.25 10*3/uL Normal 4.00-10.60 [facility] Comment on above: Order Comment: No: D o not add to previous draw Performed By: #### 3 5200 #### [facility] [address] [place] [address], [facility] CTA HEART-CORONARY/ ARTERY B YPASS GRAFT WITH 3DPPon 10-11-2020 CTA HEART-CORONARY/ ARTERY BYPASS GRAFT WITH 3DPP [facility] Department of Radiology [address] [place] [id number] Patient Name: KARLA MCCOLLUM : 1950 Sex: M Age: Race: White Pt. Location: [id number] Patient Status: I Ordered Date: 10/11/2020 8:30:00 [...] otherwise. Electronically signed: Asa Hill. 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 Division of Service Date: 10/10/2020 Cardiology Birthdate: 1950 Adult Cardiovascular Room #: 3AB [id number] [facility] [address] [address] Cardiovascular Laboratory Report INDICATION: The patient is [...] signed informed consent. He was brought to skilled labor in a fasting state. The right wrist area was prepped and draped in usual fashion. Modified Satnam's test was favorable on the right. Access in the right radial artery was obtained using micropuncture technique. A 6-Korean x 11 cm Hydrophilic sheath was advanced, [...] adequate location, this was upsized to a 6-Korean x 11 cm sheath. Bilateral selective coronary angiography was then performed using 6-Korean JL3.5 and JR4 diagnostic catheters. The 6-Korean JR4 diagnostic catheter was then used to [...] Stern M.D. Date Trans: 10/11/2020 06:09 A/lucia [id number] cc: Hoa Tran M.D. [facility] [address] [facility] [place] [phone] Neli Stern M.D. Heart Failure/ Transplant Mailstop [address] [facility] [address] Normal [facility] BASIC METABOLIC PANELon 09-17 Calcium [Mass/Vol] 9.0 mg/dL Normal 8.6-10.3 [facility] Comment on above: Order Comment: No: D o not add to previous draw Performed By: #### 0 1, 89916 #### [facility] [address] [place] [address], [place] Chloride [Moles/Vol] 103 mmol/L Normal 98-107 [facility] Comment on above: Order Comment: No: D o not add to previous draw Performed By: #### 0 70, 93062 #### [facility] [address] [place] [address], [place] CO2 [Moles/Vol] 25 mmol/L Normal 21-31 [facility] Comment on above: Order Comment: No: D o not add to previous draw Performed By: #### 0 70, 92863 #### [facility] [address] [place] [address], [place] Creatinine [Mass/Vol] 0.87 mg/dL Normal 0.70-1.30 [facility] Comment on above: Order Comment: No: D o not add to previous draw Performed By: #### 0 70, 80517 #### [facility] [address] [place] [address], [place] GFR/1.73 sq M predicted among blacks MDRD (S/P/Bld) [Vol rate/Area] mL/min/{1.73_m2} Normal >60 [facility] Comment on above: Order Comment: No: D o not add to previous draw Performed By: #### 0 70, [id number] #### [facility] [address] [place] [address], [place] GFR/1.73 sq M predicted among non-blacks MDRD (S/P/Bld) [Vol rate/Area] mL/min/{1.73_m2} Normal >60 [facility] Comment on above: Order Comment: No: D o not add to previous draw Performed By: #### 0 70, 76442 #### [facility] [address] [place] [address], [place] Glucose [Mass/Vol] 109 mg/dL High 70-100 [facility] Comment on above: Order Comment: No: D o not add to previous draw Performed By: #### 0 70, 00658 #### [facility] [address] [place] [address], [place] Potassium [Moles/Vol] 3.5 mmol/L Normal 3.5-5.1 [facility] Comment on above: Order Comment: No: D o not add to previous draw Performed By: #### 0 70, 71792 #### [facility] [address] [place] [address], [place] Sodium [Moles/Vol] 137 mmol/L Normal 136-145 [facility] Comment on above: Order Comment: No: D o not add to previous draw Performed By: #### 0 70, 09899 #### [facility] [address] [place] [address], [facility] Urea nitrogen [Mass/Vol] 14 mg/dL Normal 7-25 [facility] Comment on above: Order Comment: No: D o not add to previous draw Performed By: #### 0 70, [id number] #### [facility] [address] [place] [address], [place] CBC COMPLETE BLOOD COUNTon 0 10-10-2020 Erythrocyte distribution width (RBC) [Ratio] 13.2 % Normal 11.5-15.0 [facility] Comment on above: Order Comment: No: D o not add to previous draw Performed By: #### 3 8950 #### [facility] [address] [place] [address], [facility] Hematocrit (Bld) [Volume fraction] 38.2 % Low 39.0-50.0 [facility] Comment on above: Order Comment: No: D o not add to previous draw Performed By: #### 3 5200 #### [facility] [address] [place] [address], [facility] Hemoglobin (Bld) [Mass/Vol] 12.2 g/dL Low 13.0-17.0 [facility] Comment on above: Order Comment: No: D o not add to previous draw Performed By: #### 3 [id number] #### [facility] [address] [place] [address], [facility] MCH (RBC) [Entitic mass] 28.6 pg Normal 27.0-33.0 [facility] Comment on above: Order Comment: No: D o not add to previous draw Performed By: #### 3 [id number] #### [facility] [address] [facility]. [address] MCHC (RBC) [Mass/Vol] 31.9 g/dL Low 32.0-35.0 [facility] Comment on above: Order Comment: No: D o not add to previous draw Performed By: #### 3 [id number] #### [facility] [address] [facility] [place] [address], [facility] MCV (RBC) [Entitic vol] 89.5 fL Normal 82.0-98.0 [facility] Comment on above: Order Comment: No: D o not add to previous draw Performed By: #### 3 [id number] #### [facility] [address] [facility] [place] [address], [facility] Nucleated RBC/100 WBC (Bld) [Ratio] 0 % Normal 0-0 [facility] Comment on above: Order Comment: No: D o not add to previous draw Performed By: #### 3 [id number] #### [facility] [address] [facility] [place] [address], [facility] PLAT CNT 253 10*3/uL Normal 150-400 The [facility] Comment on above: Order Comment: No: D o not add to previous draw Performed By: #### 3 [id number] #### [facility] [address] [place] [address], [facility] RBC (Bld) [#/Vol] 4.27 10*6/uL Normal 4.20-5.70 [facility] Comment on above: Order Comment: No: D o not add to previous draw Performed By: #### 3 [id number] #### [facility] [address] [place] [address], [facility] WBC (Bld) [#/Vol] 10.57 10*3/uL Normal 4.00-10.60 [facility] Comment on above: Order Comment: No: D o not add to previous draw Performed By: #### 3 [id number] #### [facility] [address] [facility] [place] [address], [facility] HEMOGLOBIN A1Con 10-10-2020 HbA1c (Bld) [Mass fraction] 6.0 % Normal 4.0-6.0 [facility] Comment on above: Order Comment: No: D o not add to previous draw Performed By: #### 3 1791 #### [facility] [address] [place] [address], [facility] HbA1c (Bld) [Mass fraction] 126 mmol/L Normal [facility] Comment on above: Order Comment: No: D o not add to previous draw Performed By: #### 3 1791 #### [facility] [address] [place] [id number], [facility] LIPID PROFILEon 10-10-2020 Cholesterol [Mass/Vol] 144 mg/dL Normal 120-200 Th [facility] Comment on above: Order Comment: No: D o not add to previous draw Result Comment: CHOL ESTEROL REFERENCE RANGE: 20 YEARS AND OLDER CARDIOVASCULAR RISK Less than 200 mg/dl Low Risk 200 to 239 mg/dl Borderline Risk 240 mg/dl and greater High Risk Performed By: #### 0 0071, [id number] #### [facility] [address] [place] [address], [facility] Cholesterol in HDL [Mass/Vol] 30 mg/dL Normal 23-92 [facility] Comment on above: Order Comment: No: D o not add to previous draw Result Comment: Slig ht variation in normal range could be due to gender and/or age. HDL CHOLESTEROL REFERENCE RANGE: 20 years and older Cardiovascular Risk > or =60 mg/dL Desirable 40 TO 59 mg/dL Low Risk <40 mg/dL High Risk Performed By: #### 0 0071, [id number] #### [facility] [address] [place] [address], [facility] Cholesterol in LDL [Mass/Vol] 73 mg/dL Normal 0-130 [facility] Comment on above: Order Comment: No: D o not add to previous draw Result Comment: LDL IS A CALCULATION LDL IS ONLY VALID IF THE TRIG IS LESS THAN 400. Performed By: #### 0 0071, [id number] #### [facility] [address] [place] [address], [facility] Cholesterol.total/Chol esterol in HDL [Mass ratio] 4.8 {ratio} High 0.0-4.5 [facility] Comment on above: Order Comment: No: D o not add to previous draw Performed By: #### 0 0071, [id number] #### [facility] [address] [place] [address], [facility] NON-HDL CHOLESTEROL 114 mg/dL Normal [facility] Comment on above: Order Comment: No: D o not add to previous draw Performed By: #### 0 0071, 09257 #### [facility] [address] [place] [address], [place] Triglyceride [Mass/Vol] 203 mg/dL High 40-149 [facility] Comment on above: Order Comment: No: D o not add to previous draw Result Comment: TRIG LYCERIDE REFERENCE RANGE: 20 YEARS AND OLDER CARDIOVASCULAR RISK LESS THAN 150 mg/dl LOW RISK 150 TO 199 mg/dl BORDERLINE RISK 200 mg/dl AND GREATER HIGH RISK Performed By: #### 0 0071, [id number] #### [facility] [address] VLDL CHOL 41 mg/dL High 0-40 [facility] Comment on above: Order Comment: No: D o not add to previous draw Performed By: #### 0 0071, [id number] #### [facility] [address] PROTHROMBIN TIMEon 1 INR Coag (PPP) [Relative time] 1.00 {INR} Normal 0.91-1.16 [facility] Comment on above: Order Comment: No: [...] 1995;108:231S-246S. Performed By: #### 5 6101 #### [facility] [address] [facility]. [address] PT Coag (PPP) [Time] 13.2 s Normal 12.3-14.8 [facility] Comment on above: Order Comment: No: D o not add to previous draw Result Comment: ALL RESULTS MUST BE INTERPRETED WITH RESPECT TO BLOOD DRAWING ARTIFACT OR DILUTION ERROR OF ANTICOAGULANT AT THE TIME OF SAMPLING. Performed By: #### 5 6101 #### [facility] [address] BNP (B-TYPE NATRIURETIC PEPT FELISA)on 10-09-2020 Natriuretic peptide B (Bld) [Mass/Vol] 32 pg/mL Normal 0-100 [facility] Comment on above: Order Comment: No: D o not add to previous draw Result Comment: Give n the appropriate clinical setting a BNP result of >100 pg/mL indicates congestive heart failure. Performed By: #### 8 5123 #### [facility] [address] TROPONIN-Ion 10-09-2020 Troponin I.cardiac [Mass/Vol] 0.00 ng/mL Normal 0.00-0.04 [facility] Comment on above: Order Comment: No: D o not add to previous draw Result Comment: REFE RENCE RANGES: 0.00 - 0.14 ng/ml NEGATIVE 0.15 - 0.25 ng/ml INDETERMINATE > 0.25 ng/ml INDICATIVE OF AN M.I. Performed By: #### 3 5200 #### [facility] [address] Provider Letter FTMCon 09-20 Provider Letter [facility] Hoa Tran, [facility] [place] [address] Re: KARLA MCCOLLUM Date of : 1950 Thank you for your referral of Karla Mccollum who was seen on consultation on Sep 17, 2020, for three skin lesions of concern. I have enclosed my consultation note for your review, and I will be happy to follow Karla should he need further treatment. Sincerely, Karla Dye MD General Surgery Normal [facility] Facesheeton 09-18-2020 Facesheet [id number] #1.00CD:127 Normal [facility] Ambulatory Clinical Summaryo n 09-17-2020 Ambulatory Clinical Summary {[id number]}CD:[id number] Normal [facility] General Surgery Office/Clini c Noteon 09-17-2020 [...] Primary malignant neoplasm of lung: Father. Normal [facility] Comment on above: Result Comment: Elec tronically Signed By: SHEY WARD, Karla Leos\Date and Time Signed: 09/17/20 16:29 EST Physician Referralon 021 Physician Referral [id number] #1.00CD:127 Normal [facility] Vital Signs Date Time Vital Sign Value Performing Clinician Faci codyy 04-24-2025 09:32-0400 Body height 177.8 cm Sadaf Malhotra MD Work Phone: [facility] 04-24-2025 09:32-0400 Body mass index (BMI) [Ratio] 35.15 kg/m2 Sadaf Malhotra MD Work Phone: [facility] 04-24-2025 09:32-0400 Body weight 111.13 kg Sadaf Malhotra MD Work Phone: [facility] 04-24-2025 09:32-0400 Diastolic blood pressure 74 mm[Hg] Sadaf Malhotra MD Work Phone: [facility] 04-24-2025 09:32-0400 Heart rate 62 /min Sadaf Malhotra MD Work Phone: [facility] 04-24-2025 09:32-0400 Systolic blood pressure 137 mm[Hg] Sadaf Malhotra MD Work Phone: [facility] 04-18-2025 13:08-0400 Body height 177.8 cm Sadaf Malhotra MD Work Phone: [facility] 04-18-2025 13:08-0400 Body mass index (BMI) [Ratio] 35.15 kg/m2 Sadaf Malhotra MD Work Phone: [facility] 04-18-2025 13:08-0400 Body weight 111.13 kg Sadaf Malhotra MD Work Phone: [facility] 04-18-2025 13:08-0400 Diastolic blood pressure 60 mm[Hg] Sadaf Malhotra MD Work Phone: [facility] 04-18-2025 13:08-0400 Heart rate 62 /min Sadaf Malhotra MD Work Phone: [facility] 04-18-2025 13:08-0400 Systolic blood pressure 127 mm[Hg] Sadaf Malhotra MD Work Phone: [facility] 05-30-2024 10:29-0400 Body height 177.8 cm Sadaf aMlhotra MD Work Phone: [facility] 05-30-2024 10:29-0400 Body mass index (BMI) [Ratio] 36.16 kg/m2 Sadaf Malhotra MD Work Phone: [facility] 05-30-2024 10:29-0400 Body weight 114.31 kg Sadaf Malhotra MD Work Phone: [facility] 05-30-2024 10:29-0400 Diastolic blood pressure 71 mm[Hg] Sadaf Malhotra MD Work Phone: [facility] 05-30-2024 10:29-0400 Systolic blood pressure 130 mm[Hg] Sadaf Malhotra MD Work Phone: [facility] Encounters Encounter Date Encounter Type Care Provider Facility Start: 04-24-2025 End: 04-24-2025 Bamboo flowsheet Sadaf Malhotra MD Work Phone: [facility] Start: 04-24-2025 End: 04-24-2025 Bamboo flowsheet Sadaf Malhotra MD Work Phone: [facility] Start: 04-24-2025 End: 04-24-2025 Office outpatient visit 25 minutes Sadaf Malhotra MD Work Phone: [facility] Comment on above: Chronic myringitis o f left ear (Primary Dx); Other infective chronic otitis externa of left ear; Perforation of left tympanic membrane; Nontoxic multinodular goiter ; Lipoma of neck Start: 04-24-2025 End: 04-24-2025 ambulatory SADAF MALHOTRA Not Available Start: 04-23-2025 End: 04-23-2025 Clinisync Result Encounter Sadaf Malhotra MD Work Phone: [facility] Unsolicited Start: 04-23-2025 End: 04-23-2025 Clinisync Result Encounter Sadaf Malhotra MD Work Phone: [facility] Unsolicited Start: 04-23-2025 End: 04-23-2025 Telephone encounter Sad[facility] Malhotra MD [facility] Comment on above: ear drops burn Start: 04-18-2025 End: 04-18-2025 Bamboo flowsreyes Malhotra MD Work Phone: [facility] Start: 04-18-2025 End: 04-18-2025 Bamboo flowsreyes Malhotra MD Work Phone: [facility] Start: 04-18-2025 End: 04-18-2025 Office outpatient visit 25 minutes Sadaf Malhotra MD Work Phone: [facility] [place] [facility] Comment on above: Chronic myringitis o f left ear (Primary Dx); Other infective chronic otitis externa of left ear; Foreign body of left ear, initial encounter Start: 04-18-2025 End: 04-18-2025 ambulatory SADAF MALHOTRA Not Available Start: 12-04-2024 End: 12-04-2024 Bamboo flowsheet Jacqui Guillen MD Work Phone: [facility] Start: 12-04-2024 End: 12-04-2024 Bamboo flowsheet Jacqui Guillen MD Work Phone: [facility] Start: 12-04-2024 End: 12-04-2024 Office outpatient visit 25 minutes Jacqui Guillen MD Work Phone: [facility] Comment on above: Other seborrheic ochoa matitis (Primary Dx); Melanocytic nevus of trunk; Actinic keratosis; Lentigines; Stasis dermatitis of both legs Start: 12-04-2024 End: 12-04-2024 ambulatory JACQUI GUILLEN Not Available Start: 11-20-2024 End: 11-20-[address] [facility] Start: 11-08-2024 End: 11-08-2024 ambulatory SADAF MALHOTRA Not Available Start: 10-30-2024 End: 10-30-2024 Clinisync Result Encounter Sadaf Malhotra MD Work Phone: [facility] Unsolicited Start: 10-30-2024 End: 10-30-2024 Clinisync Result Encounter Sadaf Malhotra MD Work Phone: [facility] Unsolicited Start: 05-30-2024 End: 05-30-2024 Bamboo flowsheet Sadaf Malhotra MD Work Phone: [facility] Start: 05-30-2024 End: 05-30-2024 Bamboo flowsheet Sadaf Malhotra MD Work Phone: [facility] Start: 05-30-2024 End: 05-30-2024 Office outpatient new 45 minutes Sadaf Malhotra MD Work Phone: [facility] Comment on above: Nontoxic multinodula r goiter (CMS/HCC) (Primary Dx); Neck mass Start: 05-30-2024 End: 05-30-2024 ambulatory SADAF MALHOTRA Not Available Start: 05-15-2024 End: 05-15-2024 ambulatory Hoa Tran [facility] Work Phone: Start: 05-15-2024 End: 05-15-2024 Departed Referred MD Hoa Tran Work Phone: [facility] Start: 12-22-2023 End: 12-22-2023 ambulatory NELI STERN [facility] Start: 12-15-2023 End: 12-15-2023 ambulatory Bismark Redd Facility:[facility] Start: 11-24-2022 End: 11-25-[address] NELI STERN Facility: Start: 09-02-2022 End: 09-02-[address] HOA TRAN . Facility: Start: 12-17-2021 End: 12-18-[address] HOA TRAN . Facility:[facility] Start: 10-09-2020 End: 10-12-2020 Evaluation and management of inpatient HOA TRAN Facility:[facility] Procedures Date Procedure Procedure Detail Performing Clinician Start: 04-23-2025 Us soft tissue head & neck real time imge docm Sadaf Malhotra MD Work Phone: Start: 12-04-2024 CRYOTHERAPY SKIN LESION Jacqui Guillen [...] Patient encounter procedure [facility] Start: 04-24-2025 End: 04-24-2025 Patient encounter procedure [facility] [place] [facility] Comment on above: Arrived Start: 04-18-2025 End: 04-18-2025 Patient encounter procedure 04/18/2025 1:10 PM EDT Office Visit [facility] [place] [facility] [address] [place] [address] Sadaf Malhotra MD [address] [place] [address] Arrived [facility] [place] [facility] Comment on above: Arrived Start: 04-16-2025 Influenza vaccination [facility] Start: 12-04-2024 End: 12-04-2024 Patient encounter procedure [facility] Comment on above: Arrived Start: 11-08-2024 End: 11-08-2024 Patient encounter procedure 11/08/2024 8:30 AM EDT Office Visit [facility] [address] [place] [address] Sadaf Malhotra MD [address] [place] [address] [facility] Start: 05-30-2024 End: 05-30-2024 Patient encounter procedure 05/30/2024 10:30 AM EDT Office Visit [facility] [address] [place] [address] Sadaf Malhotra MD [address] [place] [address] Arrived [facility] Comment on above: Arrived Start: 04-16-2024 Influenza vaccination Influenza Vacc ine (#1) [facility] Start: 1950 Screening for malignant neoplasm of colon [facility] Immunizations Immunization Date Immunization Notes Care Provider Maty parisi 05-03-2023 influenza virus vacc ine, unspecified formulation Sadaf Malhotra MD Work Phone: [facility] Payers Date Payer Category Payer Medicare [id number] 2023 Self-pay 2023 Medicare (Managed Care) 1.2. [id number] 2023 Medicare [id number] 1959 Medicare [id number] 1959 Unknown [id number] 1950 Unknown [id number] 1950 Unknown [id number] [id number] 1950 Unknown [id number] [id number] 1950 Unknown [id number] [id number] 1950 Unknown [id number] [id number] 1950 Unknown [id number] [id number] 1950 Unknown [id number] [id number] 1950 Unknown [id number] [id number] 1950 Unknown [id number] [id number] Unknown [employer] BC/BS [id number] Unknown Insurance No Card [id number] Unknown [id number] [id number] Unknown [id number] Social History Date Type Detail Facility Start: 07-14-2021 Tobacco smoking stat [facility] Never smoked tobacco (finding) [facility] Start: 1950 Sex Assigned At Male F [facility] Start: 12-02-2023 Tobacco smoking stat [facility] Tobacco smoking consumption unknown [facility] Start: 1950 Sex assigned at Not on file [facility] Start: 05-30-2024 End: 04-24-2025 Gender identity Not on file [facility] Start: 05-30-2024 Tobacco smoking stat [facility] Ex-smoker [facility] History of tobacco use Current smoker [facility] History of tobacco use Cigarette Smoker [facility] History of tobacco use Passive smoker [facility] Start: 05-30-2024 Tobacco use and exposure Smokeless tobacco non-user [facility] Start: 05-30-2024 End: 04-24-2025 Alcoholic beverage intake Current drinker of alcohol (finding) [facility] Start: 05-30-2024 End: 04-24-2025 History of Social function [facility] Clinical Notes 12-17-2021 to 04-24-2025 Sadaf Malhotra MD - 04/24/2025 9:40 AM EDTTelephone Encounter - Mirtayenni Malhotra - 04/23/2025 2:13 PM EDTTelephone Encounter - Mirtayenni Malhotra - 04/23/2025 2:13 PM EDT Note Date & Type Note Facility 04-24-2025 History of Present illness Narrative Subjective Patient ID: Karla Mccollum is a 75 y.o. male who presents for Ear Problem (Ear discharge) Clotrimazole drops started burning 4-5 days after starting them. Pt had thyroid US yesterday and it shows mult stable subcentimeter nodules. Pt feels lipomas stable Family History Problem Relation Name Age of [...] week, 30 day supply 120 mL 11 ciprofloxacin-dexAMETHasone (CiproDEX) otic suspension Administer 4 drops into the left ear in the morning and 4 drops before bedtime. Do all this for 10 days. 7.5 mL 0 clotrimazole (Lotrimin) 1 % external solution 4 drops to left ear 2 times daily for 10 days 10 mL 1 ezetimibe (Zetia) 10 MG tablet fenofibrate (Tricor) 145 MG tablet Take 145 mg by mouth Daily fluconazole (Diflucan) 100 MG tablet 2 pills day one and then one pill daily for 13 days 15 tablet 0 irbesartan (Avapro) 150 MG tablet Take 150 [...] armpits, and groin 80 g 2 [DISCONTINUED] vnalrsof-jgvnujskf-unllmqayyqkwra (Cortisporin) 3.5-24798-3 otic suspension every 8 (eight) hours No current facility-administered medications on file prior to visit. Objective Last Recorded Vitals Vitals: 04/24/25 0932 BP: 137/74 Pulse: 62 ENT Physical Exam Constitutional Appearance: patient appears well-developed, well-nourished and well-groomed, Communication/Voice: communication appropriate for developmental age; vocal quality normal; Ear Ear comments: Markedly improved inflammation with clean/dry ant/inf perf. 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 Stop clotrimazole and continue diflucan and ciprodex. Perf may get bigger. Will follow to assess need for repair. MNG stable. Repeat US one year. Lipomas stable. Image if growth perceived. documented in this encounter [facility] 04-23-2025 Telephone encounter Note Griffiths pt/told pt to stop the drops and made appt for him to come into office 04/24/25. [facility] 04-23-2025 Miscellaneous Notes Griffiths pt/told pt to stop the drops and made appt for him to come into office 04/24/25. F/U tomorrow. Stop drops Pt called in to say that the ear drop that was prescribed joseph. It is the clotrimazole 1%. He also noticed the last couple of mornings he has had a small amount of blood on his pillowcase. documented in this encounter [facility] 04-23-2025 Telephone encounter Note F/U tomorrow. Stop drops [facility] 04-23-2025 Telephone encounter Note Pt called in to say that the ear drop that was prescribed joseph. It is the clotrimazole 1%. He also noticed the last couple of mornings he has had a small amount of blood on his pillowcase. [facility] 04-18-2025 History of Present illness Narrative Images from the original note [...] armpits, and groin 80 g 2 [DISCONTINUED] qlhghimi-grxwinttb-gnynzxkekixexb (Cortisporin) 3.5-97984-8 otic suspension every 8 (eight) hours No [...] well as diflucan. documented in this encounter [facility] 12-04-2024 History of Present illness Narrative Images from the original note [...] limited to risks of scarring, darker or soaking room operator pigmentary changes, recurrence, incomplete removal and [...] - Anterior, Right Lower Leg - Anterior [place] scaly plaques in areas of edema The [...] Visit: 1 year documented in this encounter [facility] 11-20-2024 Note [place] [facility] Subjective Karla Mccollum is a [...] was admitted to the [facility] on 05/06/2023 with chest pain and uncontrolled [...] Mood normal. Be (more content not included)... [facility] 05-30-2024 History of Present illness Narrative Subjective Patient ID: Karla Mccollum is a 74 y.o. male who presents for Neck Mass ( FNA 05/15/24 [facility]) Pt reports that in the course of being evaluated for a left submandibular mass he was found to also have thyroid nodules. US of the submental mass shows a [id number] mass. FNA c/w a lipoma. Thyroid US shows a 98d96a0se RT TR5 nodule and a 83g11f1wx LT TR4 nodule. Path on each thyroid nodule was [place] 1. No known radiation exposure or family [...] tablet Take 100 mg by mouth Daily znwhezru-wvqwyjonv-xophoxtondbipx (Cortisporin) 3.5-52920-3 otic suspension every 8 (eight) hours omeprazole [...] bx, or removal documented in this encounter [facility] 12-22-2023 Note [place] [facility] Subjective Karla Mccollum is a [...] was admitted to the [facility] on 05/06/2023 with chest pain and uncontrolled [...] Disp: 90 tablet, (more content not included)... [facility] 12-17-2021 Note CARDIAC STRESS TEST Requesting Physician: [...] a separate dictation. [facility]: Evaluation note Diagnosis Nontoxic multinodular goiter (CMS/HCC)- Primary Nontoxic multinodular goiter Neck mass Swelling, mass, or lump in head and neck documented in this encounter [facility]* Diagnosis Other seborrheic dermatitis- Primary Melanocytic nevus of trunk Benign neoplasm of skin of trunk, except scrotum Actinic keratosis Lentigines Stasis dermatitis of both legs [facility] Diagnosis Chronic myringitis of left ear- Primary Other infective chronic otitis externa of left ear Foreign body of left ear, initial encounter documented in this encounter [facility]* Diagnosis Chronic myringitis of left ear- Primary Other infective chronic otitis externa of left ear Perforation of left tympanic membrane Nontoxic multinodular goiter Nontoxic multinodular goiter Lipoma of neck documented in this encounter [facility] [...] Records Found Hospital Course Note MR#: [id number] [facility] Pt. Name: Karla Mccollum Admitted: 10/09/2020 [...] section and content) DATE CREATED AUTHOR 09/22/2020 [facility] DATE CREATED AUTHOR AUTHOR'S ORGANIZ ATION 10/15/2020 [facility] DATE CREATED AUTHOR AUTHOR'S ORGANIZ ATION 11/30/2022 [facility] [facility] DATE CREATED AUTHOR AUTHOR'S ORGANIZ ATION 05/20/2024 [facility] DATE CREATED AUTHOR AUTHOR'S ORGANIZ ATION 11/21/[address] [facility] DATE CREATED AUTHOR AUTHOR'S ORGANIZ ATION 04/26/2025 [facility] Care Teams (unrecognized sec tion and content) Team Status: Inactive Member Role Status Dates Hoa Tran MD Attending Provider Active Sta rt: May 15, 2024 End: May 15, 2024 Biometrics Instructor Relationship Specialty Start Date End Date Hoa Tran MD [address] [place] [facility] [place] [phone] PCP - General Family Medicine 05/30/24 Biometrics Instructor Relationship Specialty Start Date End Date Hoa Tran MD [address] [place] [facility] [place] [phone] PCP - General Family Medicine 05/30/24 Biometrics Instructor Relationship Specialty Start Date End Date Hoa Tran MD [address] [place] [facility] [place] [address] PCP - General Family Medicine 05/30/24 Biometrics Instructor Relationship Specialty Start Date End Date Hoa Tran MD [address] [place] [facility] [place] [address] PCP - General Family Medicine 05/30/24 Biometrics Instructor Relationship Specialty Start Date End Date Hoa Tran MD [address] [place] [facility] [place] [phone] PCP - General Family Medicine 05/30/24 Biometrics Instructor Relationship Specialty Start Date End Date Hoa Tran MD [address] [facility] [place] [address] PCP - General Family Medicine 04/18/25 Biometrics Instructor Relationship Specialty Start Date End Date Hoa Tran MD [address] [place] [facility] [place] [phone] PCP - General Family Medicine 04/18/25 Biometrics Instructor Relationship Specialty Start Date End Date Hoa Tran MD [address] [place] [address] PCP - General Family [facility] [place] 04/18/25 Biometrics Instructor Relationship Specialty Start Date End Date Hoa Tran MD [address] [place] [address] PCP - [facility] 04/18/25 Biometrics Instructor Relationship Specialty Start Date End Date Hoa Tran MD [address] [place] [facility] [place] [address] PCP - General Family [facility] 04/18/25 Biometrics Instructor Relationship Specialty Start Date End Date Hoa Tran MD [address] [place] [facility] [place] [phone] PCP - General Family Medicine 04/18/25 Goals (unrecognized section and content) Goals may be documented in a n alternate section Reason for Visit (unrecogniz ed section and content) Reason Comments Neck Mass FNA 05/15/24 [facility] Reason Comments Skin Check Reason Comments Cerumen Impaction Reason Onset Date Comments ear drops burn 04/23/2025 Reason Comments Ear Problem Ear discharge FOR RECORDS PERTAINING TO PATIENTS WHO ARE [...] BE BASED ON THE PRIMARY CLINICAL RECORDS. [facility] [employer] [facility]. provides no warranty or guarantee of the accuracy or completeness of information in this document.
[2025-05-01 08:21] LABS: Hematocrit 36.8 % (42.0-54.0); Hemoglobin 12.0 g/dL (14.0-18.0); Immature Granulocytes Abs Auto 0.04 10^3/uL (0.00-0.03); Immature Granulocytes Pct Auto 0.5 % (0.0-0.5); Lymphocytes Absolute Auto 2.5 10^3/uL (1.2-3.8); Mean Corpuscular HGB Conc 32.6 g/dL (29.9-35.2); Mean Corpuscular Hemoglobin 29.6 pg (25.9-34.0); Mean Corpuscular Volume 90.9 fL (80.0-94.0); Platelet Count 220 10^3/uL (150-450); Red Blood Count 4.05 10^6/uL (4.70-6.10); White Blood Count 7.9 10^3/uL (4.0-11.0)
[2025-05-01 09:07] LABS: Alanine Aminotransferase 33 U/L (16-63); Albumin Globulin Ratio 1.1; Albumin Level 4.0 g/dL (3.4-5.0); Alkaline Phosphatase 32 U/L (46-116); Anion Gap 13.8; Aspartate Amino Transferase 35 U/L (15-37); Blood Urea Nitrogen 22.0 mg/dL (7.0-18.0); Calcium 9.1 mg/dL (8.5-10.1); Carbon Dioxide 25.7 mmol/L (21.0-32.0); Chloride 106 mmol/L (98-107); Cholesterol 162 mg/dL (<=200); Estimated GFR (African America >60 (>=60 mL/min/1.73m^2); Estimated GFR (Non-African Ame 54 (>=60 mL/min/1.73m^2); Free T3 1.67 pg/mL (2.18-3.98); Globulin 3.5 g/dL; Glucose 115 mg/dL (74-106); HDL Cholesterol 41 mg/dL (40-60); Potassium 4.5 mmol/L (3.5-5.1); Sodium 141 mmol/L (136-145); Thyroid Stimulating Hormone 3.928 uIU/mL (0.358-3.740); Total Protein 7.5 g/dL (6.4-8.2); Triglycerides 194 mg/dL (<=150); VLDL CHOLESTEROL 38.8 mg/dL
== END 2025-05-01 07:48 | disposition home or self-care (01) ==
LOC: LAB 07:48
PROVIDERS: PCP Family Medicine; Visit Provider Family Medicine
DX: R07.9 Chest pain, unspecified (principal); I10 Essential (primary) hypertension; R79.89 Other specified abnormal findings of blood chemistry; Z12.5 Encounter for screening for malignant neoplasm of prostate
CPT/HCPCS: 36415; 80053; 80061; 83036; 84436; 84443; 84481; 85025; G0103

== ENCOUNTER 2025-05-02 09:09 | Outpatient (REF) | payer MEDICARE, SELFPAY ==
--- OUTSIDE RECORDS SUMMARY | 2025-05-02 09:18 | XMS_ITS | CCD ---
Author Organization [facility] Care Team Providers Care Invoicing Machine Operator Name Role Phone HOA TRAN Primary Care Unavailable UNKNOWN, PROVIDER Referring Unavailable GRISELDA, HANI Admitting Unavailable GRISELDA HANI Attending Unavailable MT Procedure Practitioner Unavailab le UNKNOWN, PROVIDER Surgeon [...] Unavailable Hoa Tran MD Primary Care Provider [phone] NELI STERN Attending Unavailable NELI STERN [...] / neomycin 3.5 mg/ml / polymyxin b 95054 unt/ml otic suspension (10 sources) Aminoglycoside Antibacterial, Polymyxin-class Antibacterial, Corticosteroid Start: 07-01-2023 End: 04-18-2025 czljbsei-sjpsqwgdp-obifbgqqv i sone (Cortisporin) 3.5-95281-2 otic suspension every 8 (eight) hours 07/01/2023 [...] 09-04-2022 11-08-2024 Chronic Other aftercare (1 source) group home (current) use of aspirin; Translations: [CARE HOME CURRENT USE OF ASPIRIN] Onset: 09-03-2022 Episodic Other aftercare (1 source) Other senior living (current) drug therapy; Translations: [OTH CARE HOME CURRENT DRUG THERAPY] Onset: 09-03-2022 Episodic Other [...] Interpretation Reference Range Facility US Thyroid [place] [address] [address] Ultrasound Report Signed Patient: KARLA MCCOLLUM MR#: [id number] : 1950 Acct:[id number] Age/Sex: 75 / M ADM Date: 04/23/25 Loc: US Attending Dr: Sadaf Malhotra M.D. Ordering Physician: Sadaf Malhotra M.D. Date of Service: 04/23/25 Procedure(s): US thyroid Accession Number(s): [id number] cc: Hoa Tran M.D.; Sadaf Malhotra M.D. [address] [address] Patient Name: KARLA MCCOLLUM MRN: [facility]:[id number] date: 1950 Sex: M Assigned Patient Location: US Current Patient Location: US Accession/Order Number: [id number] Exam Date: 04/23/2025 08:47 Report Date: 04/23/2025 [...] Baldwin M.D. 04/23/2025 9:35 AM Dictation Location: [place] [address] Electronically authenticated by: [id number] Y Date: 04/23/2025 09:35 Dictated By: Tonie Baldwin M.D. Signed By: 04/23/2538 DD/ TD/TT: Ribbon Lap Machine Tender: [facility] Radiology, Radiologist, - 04/23/2025 [place] [address] Ultrasound Report Signed Patient: KARLA MCCOLLUM MR#: [id number] : 1950 Acct:[id number] Age/Sex: 75 / M ADM Date: 04/23/25 Loc: US Attending Dr: Sadaf Malhotra M.D. Ordering Physician: Sadaf Malhotra M.D. Date of Service: 04/23/25 Procedure(s): US thyroid Accession Number(s): [id number] cc: Hoa Tran M.D.; Sadaf Malhotra M.D. [address] [place] [address] Patient Name: KARLA MCCOLLUM MRN: [facility]:[id number] date: 1950 Sex: M Assigned Patient Location: US Current Patient Location: US Accession/Order Number: [id number] Exam Date: 04/23/2025 08:47 Report Date: 04/23/2025 [...] Baldwin M.D. 04/23/2025 9:35 AM Dictation Location: [place] [address] Electronically authenticated by: [id number] Y Date: 04/23/2025 09:35 Dictated By: Tonie Baldwin M.D. Signed By: 04/23/2538 DD/ 4 TD/TT: Ribbon Lap Machine Tender: [facility] Radiology Study observation (narrative) [facility] US Thyroid glandOrdered By: Radiologist Radiology on 04-23-2025 [facility] Work Phone: No Panel InformationOrdered By: Nery Goncalves on 12-04-2024 [facility] Healthcare Office Visiton 11-20-2024 Follow-up visit [id number] Karla Mccollum 1950 M Date Provider Department Center 11/20/2024 NELI THRASHER [facility] Family History Problem Relation Age of Onset Hypertension Mother Cancer Father Family Status - Relation Status Age at Mother Father Sister Alive Brother Alive Level of Service:05581 MT OFFICE/OUTPATIENT ESTABLISHED LOW MDM 20 MIN Normal [facility] [place] [address] Ultrasound Report Signed Patient: KARLA MCCOLLUM MR#: [id number] : 1950 Acct:[id number] Age/Sex: 74 / M ADM Date: 10/30/24 Loc: US Attending Dr: Sadaf Malhotra M.D. Ordering Physician: Sadaf Malhotra M.D. Date of Service: 10/30/24 Procedure(s): US thyroid Accession Number(s): [id number] cc: Hoa Tran M.D.; Sadaf Malhotra M.D. [place] [address] Patient Name: KARLA MCCOLLUM MRN: [id number] date: 1950 Sex: M Assigned Patient Location: Current Patient Location: US Accession/Order Number: [id number] Exam Date: 10/30/2024 10:53 Report Date: 10/30/2024 [...] Stoner Jr., D.O.10/30/2024 10:57 AM Dictation Location: [place] [address] Electronically authenticated by: [id number] Y Date: 10/30/2024 10:57 Dictated By: Dylan Stoner M.D. Signed By: 10/30/24 1100 DD/ 1057 TD/TT: Ribbon Lap Machine Tender: [facility] Radiology, Radiologist, MD - 10/30/2024 [place] [address] Ultrasound Report Signed Patient: KARLA MCCOLLUM MR#: [id number] : 1950 Acct:[id number] Age/Sex: 74 / M ADM Date: 10/30/24 Loc: US Attending Dr: Sadaf Malhotra M.D. Ordering Physician: Sadaf Malhotra M.D. Date of Service: 10/30/24 Procedure(s): US thyroid Accession Number(s): [id number] cc: Hoa Tran M.D.; Sadaf Malhotra M.D. The [place] [id number] Patient Name: KARLA MCCOLLUM MRN: [facility]:[id number] date: 1950 Sex: M Assigned Patient Location: US Current Patient Location: US Accession/Order Number: [id number] Exam Date: 10/30/2024 10:53 Report Date: 10/30/2024 [...] Stoner Jr., D.O.10/30/2024 10:57 AM Dictation Location: [facility] Electronically authenticated by: [id number] Y Date: 10/30/2024 10:57 Dictated By: Dylan Stoner M.D. Signed By: 10/30/24 1100 DD/ 1057 TD/TT: Ribbon Lap Machine Tender: [facility] Radiology Study observation (narrative) [facility] US Thyroid glandOrdered By: Radiologist Radiology on 10-30-2024 [facility] [employer] Work Phone: Rudolph 05-15-2024 L Specimen: [id number] Received: 05/17/24 Status: EDWINA Spears Num: [id number] Spec Type: Cytology Subm Dr: Hoa Tran MD Tissues: A FNA SLIDES NOPATH (RT THY) B FNA SLIDES NOPATH (LT THY) Procedures: Cyto Int and Re/2, PAPSTN/10 Age/ Patient Sex Location Account Attending Physician Karla Mccollum/M LABELL [id number] Hoa Tran MD SPEC NUM: [id number] RECD: 05/17/24 STATUS: EDWINA SPEARS NUM: [id number] SEAN: 05/15/24- DR: Hoa Tran MD ENTERED: 05/17/[address]: Elisha Pearson MD SPEC TYPE: Cytology DEPT: GREG MORRISON ENTERED BY: [id number] RECV BY: [id number] ORDERED: Cyto Int and Re/2, PAPSTN/10 ORDERED: Cyto Int and Re/2, PAPSTN/10 Pathological Diagnosis A. Right thyroid, inferior nodule, fine needle aspiration: - Unsatisfactory for evaluation due to scant cellularity. - Scant watery colloid, non-diagnostic (Walker Category:I). B. Left thyroid, inferior nodule, fine needle aspiration: - Unsatisfactory for evaluation due to scant cellularity. - Scant watery colloid and blood, non-diagnostic (Walker Category:I). Comment: Recommend repeat thyroid FNA as clinically indicated. Clinical Information Bilateral thyroid nodules Gross Description A. (RT) Received fixed in Cytolyt is <1 ml colorless clear fluid for cytology and labeled as right thyroid nodule inferior. ThinPrep preparations are prepared for microscopic examination. Also received are 4 spray fixed smeared slides for pap and a Veracyte vial stored at -20 microscopic examination. (/ks) Specimen: [id number] Received: 05/17/24 Status: EDWINA Spears Num: [id number] Spec Type: Cytology Subm Dr: Hoa Tran MD Tissues: A FNA SLIDES NOPATH (RT THY) B FNA SLIDES NOPATH (LT THY) Procedures: Cyto Int and Re/2, PAPSTN/10 Patient: Karla Mccollum [id number] (Continued) Specimen: [id number] Received: 05/17/24 (Continued) Gross Description (Continued) Signed (signature on file) Rajesh Ridley MD 05/18/24 1609 Specimen: [id number] Received: 05/17/24 Status: EDWINA Spears Num: [id number] Spec Type: Cytology Subm Dr: Hoa Tran MD Tissues: A FNA SLIDES NOPATH (RT THY) B FNA SLIDES NOPATH (LT THY) Procedures: Cyto Int and Re/2, PAPSTN/10 Patient: Karla Mccollum [id number] (Continued) Specimen: [id number] Received: 05/17/24 (Continued) Gross Description (Continued) B. (LT) Received fixed in Cytolyt is <1 ml colorless clear fluid for cytology and labeled as left thyroid nodule inferior. ThinPrep preparations are prepared for microscopic examination. Also received are 4 spray fixed smeared slides for pap and a Veracyte vial stored at -20 for microscopic examination. (/ks) Microscopic Description A B: Microscopic examination is performed. CPT Codes 55737 x2, 22048 x2 Specimen: [id number] Received: 05/17/24 Status: EDWINA Spears Num: [id number] Spec Type: Cytology Subm Dr: Hoa Tran MD Tissues: A FNA SLIDES NOPATH (RT THY) B FNA SLIDES NOPATH (LT THY) Procedures: Cyto Int and Re/2, PAPSTN/10 Patient: Karla Mccollum [id number] (Continued) Signed (signature on file) Rajesh Ridley MD 05/18/24 1609 Normal [facility] Office Visiton 12-22-2023 Follow-up visit [id number] Karla Mccollum 1950 M Date Provider Department Center 12/22/2023 [facility]-NELI STERN VERA Antony Family History Problem Relation Age of Onset Hypertension Mother Family Status - Relation Status Age at Mother Level of Service:10451 MT OFFICE/OUTPATIENT ESTABLISHED LOW MDM 20 MIN Normal [facility] Rudolph 12-15-2023 L Specimen: [id number] Received: 12/16/23 Status: SOUYamilex Req Num: [id number] Spec Type: Cytology Subm Dr: Bismark Redd MD Tissues: A FNA SLIDES NOPATH (LT SUBMENT MASS) Procedures: HE/2, Cyto Int and Re, PAPSTN/7 Age/ Patient Sex Location Account Attending Physician Karla Mccollum 73/M LABELL [id number] Bismark Redd MD SPEC NUM: [id number] RECD: 12/16/23 STATUS: EDWINA FISHERQ NUM: [id number] SEAN: 12/15/23- SUBM DR: Bismark Redd MD ENTERED: 12/16/23 [facility] DR: Lili,[facility] Hoa Tran MD SPEC TYPE: Cytology DEPT: GREG NCYT ENTERED BY: [id number] RECV BY: [id number] ORDERED: HE/2, Cyto Int and Re, PAPSTN/7 [...] pap are additionally received. (CC/nh) CPT Codes 41776 Specimen: [id number] Received: 12/16/23 Status: EDWINA Spears Num: [id number] Spec Type: Cytology Subm Dr: Bismark Redd MD Tissues: A FNA SLIDES NOPATH (LT SUBMENT MASS) Procedures: HE/2, Cyto Int and Re PAPSTN/7 Patient: Karla Mccollum [id number] (Continued) Signed (signature on file) Bismark Quiñonez MD 12/17/23 1054 Normal [facility] LIPID PROFILEon 11-24-2022 CHOL-HDL RATIO NORM SEE BELOW Normal [facility] Comment on above: Result Comment: 3.3 - 4.4 LOW RISK 4.4 - 7.1 AVERAGE RISK 7.1 - 11.0 MODERATE RISK >11.0 HIGH RISK Performed By: #### L IPID #### [facility] [address] [address] [address] Paige Tee Cholesterol [Mass/Vol] 151 mg/dL Normal <=200 [facility] Comment on above: Performed By: #### L IPID #### [facility] [address] [place] [address] [address] Paige Tee Cholesterol in HDL [Mass/Vol] 40 mg/dL Normal 40-60 [facility] Comment on above: Performed By: #### L IPID #### [facility] [address] [place] [address] [address] Paige Tee Cholesterol in LDL [Mass/Vol] 87.4 mg/dL Normal [facility] Comment on above: Performed By: #### L IPID #### [facility] [address] [place] [address] [address] Paige Tee Cholesterol.total/Chol esterol in HDL [Mass ratio] 3.8 {ratio} Normal [facility] Comment on above: Performed By: #### L IPID #### [facility] [address] [place] [address] [address] Paige Tee HDL NORMAL > or = 60 mg/dl - LOW CARDIOVASCULAR RISK <40 mg/dl - HIGH CARDIOVASCULAR RISK Normal [facility] Comment on above: Performed By: #### L IPID #### [facility] [address] [place] [address] [address] Paige Tee LDL CALC NORMAL SEE BELOW Normal [facility] Comment on above: Result Comment: <100 mg/dl OPTIMAL 100 - 129 mg/dl NEAR OR ABOVE OPTIMAL 130 - 159 mg/dl BORDERLINE HIGH 160 - 189 mg/dl HIGH >190 mg/dl VERY HIGH Performed By: #### L IPID #### [facility] [address] [place] [address] Dr. Paige Tee Triglyceride [Mass/Vol] 118 mg/dL Normal <=150 [facility] Comment on above: Performed By: #### L IPID #### [facility] [address] [place] [address] Dr. Paige Tee VLDL CALC 23.6 mg/dL Normal [facility] Comment on above: Performed By: #### L IPID #### [facility] [address] [place] [address] [address] Paige Tee CBC AUTO DIFFon 09-02-2022 BASO # 0.1 103/ul Normal 0.0-0.1 [facility] Comment on above: Performed By: #### C BC #### [facility] [address] [place] [address] Dr. Paige Tee Basophils/100 WBC (Bld) 0.6 % Normal 0.2-2.0 [facility] Comment on above: Performed By: #### C BC #### [facility] [address] [place] [address] Dr. Paige Tee EO # 0.4 103/ul Normal 0.0-0.7 [facility] Comment on above: Performed By: #### C BC #### [facility] [address] [place] [address] Dr. Paige Tee Eosinophils/100 WBC (Bld) 4.0 % Normal 0.9-7.0 [facility] Comment on above: Performed By: #### C BC #### [facility] [address] [place] [address] Dr. Paige Tee Erythrocyte distribution width (RBC) [Ratio] 13.8 % Normal 11.0-15.0 [facility] Comment on above: Performed By: #### C BC #### [facility] [address] [place] [address] Dr. Paige Tee Hematocrit (Bld) [Volume fraction] 35.9 % Critically low 42.0-54.0 [facility] Comment on above: Performed By: #### C BC #### [facility] [address] [place] [address] Dr. Paige Tee Hemoglobin (Bld) [Mass/Vol] 11.9 g/dL Critically low 14.0-18.0 [facility] Comment on above: Performed By: #### C BC #### [facility] [address] [place] [address] Dr. Paige Tee IG # 0.04 10e3/ul Critically high 0.00-0.03 [facility] Comment on above: Performed By: #### C BC #### [facility] [address] [place] [address] Dr. Paige Tee IG % 0.4 % Normal 0.0-0.5 [facility] Comment on above: Performed By: #### C BC #### [facility] [address] [place] [address] Dr. Paige Tee LYMPH # 3.2 103/ul Normal 1.2-3.8 [facility] Comment on above: Performed By: #### C BC #### [facility] [address] [place] [address] Dr. Paige Tee Lymphocytes/100 WBC (Bld) 30.0 % Normal 20.5-60.0 [facility] Comment on above: Performed By: #### C BC #### [facility] [address] [place] [address] Dr. Paige Tee MANUAL DIFF REQ NO Normal [facility] Comment on above: Performed By: #### C BC #### [facility] [address] [place] [address] Dr. Paige Tee MCH (RBC) [Entitic mass] 27.9 pg Normal 25.9-34.0 [facility] Comment on above: Performed By: #### C BC #### [facility] [address] [place] [address] Dr. Paige Tee MCHC (RBC) [Mass/Vol] 33.1 g/dL Normal 29.9-35.2 [facility] Comment on above: Performed By: #### C BC #### [facility] [address] [place] [address] [address] Paige Tee MCV (RBC) [Entitic vol] 84.3 fL Normal 80.0-94.0 [facility] Comment on above: Performed By: #### C BC #### [facility] [address] [place] [address] [address] Paige Tee MONO # 0.8 103/ul Normal 0.3-0.8 [facility] Comment on above: Performed By: #### C BC #### [facility] [address] [place] [address] [address] Paige Tee Monocytes/100 WBC (Bld) 7.5 % Normal 1.7-12.0 [facility] Comment on above: Performed By: #### C BC #### [facility] [address] [place] [address] Dr. Paige Tee NEUT # 6.2 103/ul Normal 1.4-6.5 [facility] Comment on above: Performed By: #### C BC #### [facility] [address] [place] [address] Dr. Paige Tee Neutrophils/100 WBC (Bld) 57.5 % Normal 43.0-75.0 [facility] Comment on above: Performed By: #### C BC #### [facility] [address] [place] [address] Dr. Paige Tee Platelet mean volume (Bld) [Entitic vol] 9.5 fL Normal 9.5-13.5 [facility] Comment on above: Performed By: #### C BC #### [facility] [address] [place] [address] Dr. Paige Tee PLT 314 103/ul Normal 150-450 [facility] Comment on above: Performed By: #### C BC #### [facility] [address] [place] [id number] Paige Tee RBC 4.26 106/ul Critically low 4.70-6.10 [facility] Comment on above: Performed By: #### C BC #### [facility] [address] [place] [address] Dr. Paige Tee WBC 10.8 103/ul Normal 4.0-11.0 [facility] Comment on above: Performed By: #### C BC #### [facility] [address] [place] [address] Dr. Paige Tee Covid-19 PCR (CVDTB)on 08-16 SARS-CoV-2 (COVID-19) RNA UMER+probe Ql (Unsp spec) Not detected Normal NOT DETECTED [facility] Comment on above: Result Comment: When diagnostic [...] for this test is supported by the [place] of [employer] and Human Service's declaration that [...] used). Performed By: #### C VDTBH #### [facility] [address] [place] [address] Dr. Paige Tee PROF CHEM 8 (BAS METB)on Anion gap [Moles/Vol] 13.7 mmol/L Normal [facility] Comment on above: Performed By: #### H STROPN, BMP #### [facility] [address] [place] [address] Dr. Paige Tee Calcium [Mass/Vol] 9.1 mg/dL Normal 8.5-10.1 [facility] Comment on above: Performed By: #### H STROPN, BMP #### [facility] [address] [place] [address] Dr. Paige Tee Chloride [Moles/Vol] 104 mmol/L Normal 98-107 [facility] Comment on above: Performed By: #### H STROPN, BMP #### [facility] [address] [place] [address] [address] Paige Tee CO2 [Moles/Vol] 24.4 mmol/L Normal 21.0-32.0 [facility] Comment on above: Performed By: #### H STROPN, BMP #### [facility] [address] [place] [address] [address] Paige Tee Creatinine [Mass/Vol] 1.11 mg/dL Normal 0.70-1.30 [facility] Comment on above: Performed By: #### H STROPN, BMP #### [facility] [address] [place] [address] Dr. Paige Tee EGFR-AF CANADIAN >60 Normal >=60 [facility] Comment on above: Performed By: #### H STROPN, BMP #### [facility] [address] [place] [address] Dr. Paige Tee EGFR-NON AF CANADIAN >60 Normal >=60 [facility] Comment on above: Performed By: #### H STROPN, BMP #### [facility] [address] [place] [address] Dr. Paige Tee Glucose [Mass/Vol] 115 mg/dL Critically high 74-106 [facility] Comment on above: Performed By: #### H STROPN, BMP #### [facility] [address] [place] [address] Dr. Paige Tee Potassium [Moles/Vol] 4.1 mmol/L Normal 3.5-5.1 [facility] Comment on above: Performed By: #### H STROPN, BMP #### [facility] [address] [place] [address] Dr. Paige Tee Sodium [Moles/Vol] 138 mmol/L Normal 136-145 [facility] Comment on above: Performed By: #### H STROPN, BMP #### [facility] [address] [place] [address] Dr. Paige Tee Urea nitrogen [Mass/Vol] 20.0 mg/dL Critically high 7.0-18.0 [facility] Comment on above: Performed By: #### H TAMMI, NOE #### [facility] [address] [place] [address] Dr. Paige Tee Urea nitrogen/Creatinine [Mass ratio] 18.0 mg/mg Normal [facility] Comment on above: Performed By: #### H TAMMI, NOE #### [facility] [address] [place] [address] Dr. Paige Tee TROPONIN, HIGH SENSITIVITYon 09-02-2022 HSTROP 4.1 pg/mL Normal 4.0-76.1 [facility] Comment on above: Result Comment: CUT- OFF POINTS HAVE BEEN ESTABLISHED BASED ON THE FOURTH UNIVERSAL DEFINITIONS OF MYOCARDIAL INFARCTION. THE UPPER REFERENCE LIMIT (URL) OF TROPONIN, DEFINED THE 99TH PERCENTILE OF cTnI DISTRIBUTION IN A REFERENCE POPULATION, HAS BEEN CONFIRMED THE DECISION THRESHOLD FOR NM DIAGNOSIS. Performed By: #### H TAMMI #### [facility] [address] [place] [address] Dr. Paige Tee HSTROP 4.5 pg/mL Normal 4.0-76.1 [facility] Comment on above: Result Comment: CUT- OFF POINTS HAVE BEEN ESTABLISHED BASED ON THE FOURTH UNIVERSAL DEFINITIONS OF MYOCARDIAL INFARCTION. THE UPPER REFERENCE LIMIT (URL) OF TROPONIN, DEFINED THE 99TH PERCENTILE OF cTnI DISTRIBUTION IN A REFERENCE POPULATION, HAS BEEN CONFIRMED THE DECISION THRESHOLD FOR NM DIAGNOSIS. Performed By: #### H TAMMI, NOE #### [facility] [address] [place] [address] Dr. Paige Tee XR CHEST 1 Von [...] REDD Date: 2022-09-02 12:29 Normal [facility] NM STRESS/REST MULTIon 12-17 NM STRESS/REST MULTI Patient: KARLA MCCOLLUM Exam Date: 12/17/2021 : 1950 Gender:M Ordering : DR HOA TRAN . Admission #: [id number] Family : Order #: [id number] CLICK HERE TO VIEW EXAM RADIOLOGY REPORT [...] on 12/18/2021 at 09:10 Normal [facility] BASIC METABOLIC PANELon 09-17 Calcium [Mass/Vol] 8.9 mg/dL Normal 8.6-10.3 [facility] Comment on above: Order Comment: No: D o not add to previous draw Performed By: #### 0 0071 #### [facility] [address] [place] [address], [place] Chloride [Moles/Vol] 105 mmol/L Normal 98-107 [facility] Comment on above: Order Comment: No: D o not add to previous draw Performed By: #### 0 0071 #### [facility] [address] [place] [address], [place] CO2 [Moles/Vol] 25 mmol/L Normal 21-31 [facility] Comment on above: Order Comment: No: D o not add to previous draw Performed By: #### 0 0071 #### [facility] [address] [place] [address], [place] Creatinine [Mass/Vol] 0.82 mg/dL Normal 0.70-1.30 [facility] Comment on above: Order Comment: No: D o not add to previous draw Performed By: #### 0 0071 #### [facility] [address] [place] [address], [place] GFR/1.73 sq M predicted among blacks MDRD (S/P/Bld) [Vol rate/Area] mL/min/{1.73_m2} Normal >60 [facility] Comment on above: Order Comment: No: D o not add to previous draw Performed By: #### 0 0071 #### [facility] [address] [place] [address], [place] GFR/1.73 sq M predicted among non-blacks MDRD (S/P/Bld) [Vol rate/Area] mL/min/{1.73_m2} Normal >60 [facility] Comment on above: Order Comment: No: D o not add to previous draw Performed By: #### 0 0071 #### [facility] [address] [place] [address], [place] Glucose [Mass/Vol] 104 mg/dL High 70-100 [facility] Comment on above: Order Comment: No: D o not add to previous draw Performed By: #### 0 0071 #### [facility] [address] [place] [address], [facility] Potassium [Moles/Vol] 3.6 mmol/L Normal 3.5-5.1 [facility] Comment on above: Order Comment: No: D o not add to previous draw Performed By: #### 0 0071 #### [facility] [address] [place] [address], [place] Sodium [Moles/Vol] 137 mmol/L Normal 136-145 [facility] Comment on above: Order Comment: No: D o not add to previous draw Performed By: #### 0 0071 #### [facility] [address] [place] [address], [facility] Urea nitrogen [Mass/Vol] 13 mg/dL Normal 7-25 [facility] Comment on above: Order Comment: No: D o not add to previous draw Performed By: #### 0 0071 #### [facility] [address] [place] [address], [facility] CBC COMPLETE BLOOD COUNTon 0 10-12-2020 Erythrocyte distribution width (RBC) [Ratio] 13.1 % Normal 11.5-15.0 [facility] Comment on above: Order Comment: No: D o not add to previous draw Performed By: #### 3 0 #### [facility] [address] [place] [address], [facility] [facility] Hematocrit (Bld) [Volume fraction] 36.6 % Low 39.0-50.0 [facility] Comment on above: Order Comment: No: D o not add to previous draw Performed By: #### 3 5200 #### [facility] [address] [place] [address], [facility] Hemoglobin (Bld) [Mass/Vol] 11.6 g/dL Low 13.0-17.0 [facility] Comment on above: Order Comment: No: D o not add to previous draw Performed By: #### 3 5200 #### [facility] [address] [place] [address], [facility] MCH (RBC) [Entitic mass] 28.1 pg Normal 27.0-33.0 [facility] Comment on above: Order Comment: No: D o not add to previous draw Performed By: #### 3 5200 #### [facility] [address] [place] [address], [facility] MCHC (RBC) [Mass/Vol] 31.7 g/dL Low 32.0-35.0 [facility] Comment on above: Order Comment: No: D o not add to previous draw Performed By: #### 3 5200 #### [facility] [address] [place] [id number], [facility] MCV (RBC) [Entitic vol] 88.6 fL Normal 82.0-98.0 [facility] Comment on above: Order Comment: No: D o not add to previous draw Performed By: #### 3 5200 #### [facility] [address] [place] [id number], [facility] Nucleated RBC/100 WBC (Bld) [Ratio] 0 % Normal 0-0 [facility] Comment on above: Order Comment: No: D o not add to previous draw Performed By: #### 3 5200 #### [facility] [address] [place] [address], [facility] PLAT CNT 289 10*3/uL Normal 150-400 [facility] Comment on above: Order Comment: No: D o not add to previous draw Performed By: #### 3 5200 #### [facility] [address] [place] [id number], [facility] RBC (Bld) [#/Vol] 4.13 10*6/uL Low 4.20-5.70 [facility] Comment on above: Order Comment: No: D o not add to previous draw Performed By: #### 3 5200 #### [facility] [address] [place] [address], [facility] WBC (Bld) [#/Vol] 10.27 10*3/uL Normal 4.00-10.60 [facility] Comment on above: Order Comment: No: D o not add to previous draw Performed By: #### 3 5200 #### [facility] [address] [place] [address], [facility] BASIC METABOLIC PANELon 09-17 Calcium [Mass/Vol] 9.2 mg/dL Normal 8.6-10.3 [facility] Comment on above: Order Comment: No: D o not add to previous draw Performed By: #### 0 0071 #### [facility] [address] [place] [address], [facility] Chloride [Moles/Vol] 106 mmol/L Normal 98-107 [facility] Comment on above: Order Comment: No: D o not add to previous draw Performed By: #### 0 0071 #### [facility] [address] [place] [address], [facility] CO2 [Moles/Vol] 27 mmol/L Normal 21-31 The [facility] Comment on above: Order Comment: No: D o not add to previous draw Performed By: #### 0 0071 #### [facility] [address] [place] [address], [facility] Creatinine [Mass/Vol] 0.84 mg/dL Normal 0.70-1.30 [facility] Comment on above: Order Comment: No: D o not add to previous draw Performed By: #### 0 0071 #### [facility] [address] [place] [address], [facility] GFR/1.73 sq M predicted among blacks MDRD (S/P/Bld) [Vol rate/Area] mL/min/{1.73_m2} Normal >60 [facility] Comment on above: Order Comment: No: D o not add to previous draw Performed By: #### 0 0071 #### [facility] [address] [place] [address], [facility] GFR/1.73 sq M predicted among non-blacks MDRD (S/P/Bld) [Vol rate/Area] mL/min/{1.73_m2} Normal >60 [facility] Comment on above: Order Comment: No: D o not add to previous draw Performed By: #### 0 0071 #### [facility] [address] [place] [address], [facility] Glucose [Mass/Vol] 101 mg/dL High 70-100 [facility] Comment on above: Order Comment: No: D o not add to previous draw Performed By: #### 0 0071 #### [facility] [address] [place] [address], [facility] Potassium [Moles/Vol] 3.8 mmol/L Normal 3.5-5.1 [facility] Comment on above: Order Comment: No: D o not add to previous draw Performed By: #### 0 0071 #### [facility] [address] [place] [address], [facility] Sodium [Moles/Vol] 139 mmol/L Normal 136-145 [facility] Comment on above: Order Comment: No: D o not add to previous draw Performed By: #### 0 0071 #### [facility] [address] [place] [address], [facility] Urea nitrogen [Mass/Vol] 15 mg/dL Normal 7-25 [facility] Comment on above: Order Comment: No: D o not add to previous draw Performed By: #### 0 0071 #### [facility] [address] [place] [address], [facility] CBC COMPLETE BLOOD COUNTon 0 - Erythrocyte distribution width (RBC) [Ratio] 12.9 % Normal 11.5-15.0 [facility] Comment on above: Order Comment: No: D o not add to previous draw Performed By: #### 3 5200 #### [facility] [address] [place] [address], [facility] Hematocrit (Bld) [Volume fraction] 38.6 % Low 39.0-50.0 [facility] Comment on above: Order Comment: No: D o not add to previous draw Performed By: #### 3 5200 #### [facility] [address] [place] [address], [facility] Hemoglobin (Bld) [Mass/Vol] 12.3 g/dL Low 13.0-17.0 [facility] Comment on above: Order Comment: No: D o not add to previous draw Performed By: #### 3 5200 #### [facility] [address] [place] [id number], [facility] MCH (RBC) [Entitic mass] 28.5 pg Normal 27.0-33.0 [facility] Comment on above: Order Comment: No: D o not add to previous draw Performed By: #### 3 5200 #### [facility] [address] [facility] [place] [address], [facility] MCHC (RBC) [Mass/Vol] 31.9 g/dL Low 32.0-35.0 [facility] Comment on above: Order Comment: No: D o not add to previous draw Performed By: #### 3 5200 #### [facility] [address] [facility] [place] [address], [facility] MCV (RBC) [Entitic vol] 89.6 fL Normal 82.0-98.0 [facility] Comment on above: Order Comment: No: D o not add to previous draw Performed By: #### 3 5200 #### [facility] [address] [place] [address], [facility] Nucleated RBC/100 WBC (Bld) [Ratio] 0 % Normal 0-0 [facility] Comment on above: Order Comment: No: D o not add to previous draw Performed By: #### 3 5200 #### [facility] [address] [place] [address], [facility] PLAT CNT 279 10*3/uL Normal 150-400 [facility] Comment on above: Order Comment: No: D o not add to previous draw Performed By: #### 3 5200 #### [facility] [address] [place] [address], [facility] RBC (Bld) [#/Vol] 4.31 10*6/uL Normal 4.20-5.70 [facility] Comment on above: Order Comment: No: D o not add to previous draw Performed By: #### 3 5200 #### [facility] [address] [place] [address], [facility] WBC (Bld) [#/Vol] 10.25 10*3/uL Normal 4.00-10.60 [facility] Comment on above: Order Comment: No: D o not add to previous draw Performed By: #### 3 5200 #### [facility] [address] [facility] [place] [address], [facility] CTA HEART-CORONARY/ ARTERY B YPASS GRAFT WITH 3DPPon 10-11-2020 CTA HEART-CORONARY/ ARTERY BYPASS GRAFT WITH 3DPP [facility] Department of Radiology [address] [place] [id number] Patient Name: KARLA MCCOLLUM : 1950 Sex: M Age: Race: White Pt. Location: [id number] Patient Status: I Ordered Date: 10/11/2020 8:30:00 [...] otherwise. Electronically signed: Asa Hill. 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 Division of Service Date: 10/10/2020 Cardiology Birthdate: 1950 Adult Cardiovascular Room #: 3AB [id number] [facility] [address] [place] [address] Cardiovascular Laboratory Report INDICATION: The patient is [...] signed informed consent. He was brought to field laboratory operator in a fasting state. The right wrist area was prepped and draped in usual fashion. Modified Satnam's test was favorable on the right. Access in the right radial artery was obtained using micropuncture technique. A 6-Faroese x 11 cm Hydrophilic sheath was advanced, [...] adequate location, this was upsized to a 6-Faroese x 11 cm sheath. Bilateral selective coronary angiography was then performed using 6-Faroese JL3.5 and JR4 diagnostic catheters. The 6-Faroese JR4 diagnostic catheter was then used to [...] Stern M.D. Date Trans: 10/11/2020 06:09 A/lucia [id number] cc: Hoa Tran M.D. [facility] [address] [facility] [place] [facility] [id number] Neli Stern M.D. Heart Failure/ Transplant Mailstop [address] [facility] [address] Normal [facility] BASIC METABOLIC PANELon 09-17 Calcium [Mass/Vol] 9.0 mg/dL Normal 8.6-10.3 [facility] Comment on above: Order Comment: No: D o not add to previous draw Performed By: #### 0 1, 07501 #### [facility] [address] [place] [address], [place] Chloride [Moles/Vol] 103 mmol/L Normal 98-107 [facility] Comment on above: Order Comment: No: D o not add to previous draw Performed By: #### 0 70, 69116 #### [facility] [address] [place] [address], [place] CO2 [Moles/Vol] 25 mmol/L Normal 21-31 [facility] Comment on above: Order Comment: No: D o not add to previous draw Performed By: #### 0 70, 80381 #### [facility] [address] [place] [address], [place] Creatinine [Mass/Vol] 0.87 mg/dL Normal 0.70-1.30 [facility] Comment on above: Order Comment: No: D o not add to previous draw Performed By: #### 0 70, 85588 #### [facility] [address] [place] [address], [place] GFR/1.73 sq M predicted among blacks MDRD (S/P/Bld) [Vol rate/Area] mL/min/{1.73_m2} Normal >60 [facility] Comment on above: Order Comment: No: D o not add to previous draw Performed By: #### 0 70, 58312 #### [facility] [address] [place] [address], [place] GFR/1.73 sq M predicted among non-blacks MDRD (S/P/Bld) [Vol rate/Area] mL/min/{1.73_m2} Normal >60 [facility] Comment on above: Order Comment: No: D o not add to previous draw Performed By: #### 0 70, 91687 #### [facility] [address] [place] [address], [place] Glucose [Mass/Vol] 109 mg/dL High 70-100 [facility] Comment on above: Order Comment: No: D o not add to previous draw Performed By: #### 0 70, 83277 #### [facility] [address] [place] [address], [place] Potassium [Moles/Vol] 3.5 mmol/L Normal 3.5-5.1 [facility] Comment on above: Order Comment: No: D o not add to previous draw Performed By: #### 0 70, 17880 #### [facility] [address] [place] [address], [place] Sodium [Moles/Vol] 137 mmol/L Normal 136-145 [facility] Comment on above: Order Comment: No: D o not add to previous draw Performed By: #### 0 70, 60294 #### [facility] [address] [place] [address], [facility] Urea nitrogen [Mass/Vol] 14 mg/dL Normal 7-25 [facility] Comment on above: Order Comment: No: D o not add to previous draw Performed By: #### 0 70, 57937 #### [facility] [address] [place] [address], [place] CBC COMPLETE BLOOD COUNTon 0 10-10-2020 Erythrocyte distribution width (RBC) [Ratio] 13.2 % Normal 11.5-15.0 [facility] Comment on above: Order Comment: No: D o not add to previous draw Performed By: #### 3 3900 #### [facility] [address] [place] [address], [facility] Hematocrit (Bld) [Volume fraction] 38.2 % Low 39.0-50.0 [facility] Comment on above: Order Comment: No: D o not add to previous draw Performed By: #### 3 5200 #### [facility] [address] [place] [address], [facility] Hemoglobin (Bld) [Mass/Vol] 12.2 g/dL Low 13.0-17.0 [facility] Comment on above: Order Comment: No: D o not add to previous draw Performed By: #### 3 5200 #### [facility] [address] [place] [address], [facility] MCH (RBC) [Entitic mass] 28.6 pg Normal 27.0-33.0 [facility] Comment on above: Order Comment: No: D o not add to previous draw Performed By: #### 3 5200 #### [facility] [address] [facility]. [address] MCHC (RBC) [Mass/Vol] 31.9 g/dL Low 32.0-35.0 [facility] Comment on above: Order Comment: No: D o not add to previous draw Performed By: #### 3 5200 #### [facility] [address] [facility] [place] [place] [address], [facility] MCV (RBC) [Entitic vol] 89.5 fL Normal 82.0-98.0 [facility] Comment on above: Order Comment: No: D o not add to previous draw Performed By: #### 3 5200 #### [facility] [address] [facility] [place] [address], [facility] Nucleated RBC/100 WBC (Bld) [Ratio] 0 % Normal 0-0 [facility] Comment on above: Order Comment: No: D o not add to previous draw Performed By: #### 3 5200 #### [facility] [address] [facility] [place] [address], [facility] PLAT CNT 253 10*3/uL Normal 150-400 [facility] Comment on above: Order Comment: No: D o not add to previous draw Performed By: #### 3 5200 #### [facility] [address] [facility] [place] [address], [facility] RBC (Bld) [#/Vol] 4.27 10*6/uL Normal 4.20-5.70 [facility] Comment on above: Order Comment: No: D o not add to previous draw Performed By: #### 3 5200 #### [facility] [address] [place] [address], [facility] WBC (Bld) [#/Vol] 10.57 10*3/uL Normal 4.00-10.60 [facility] Comment on above: Order Comment: No: D o not add to previous draw Performed By: #### 3 5200 #### [facility] [address] [facility] [place] [address], [facility] HEMOGLOBIN A1Con 10-10-2020 HbA1c (Bld) [Mass fraction] 6.0 % Normal 4.0-6.0 [facility] Comment on above: Order Comment: No: D o not add to previous draw Performed By: #### 3 1791 #### [facility] [address] [place] [address], [facility] HbA1c (Bld) [Mass fraction] 126 mmol/L Normal [facility] Comment on above: Order Comment: No: D o not add to previous draw Performed By: #### 3 1791 #### [facility] [address] [place] [id number], [facility] LIPID PROFILEon 10-10-2020 Cholesterol [Mass/Vol] 144 mg/dL Normal 120-200 [facility] Comment on above: Order Comment: No: D o not add to previous draw Result Comment: CHOL ESTEROL REFERENCE RANGE: 20 YEARS AND OLDER CARDIOVASCULAR RISK Less than 200 mg/dl Low Risk 200 to 239 mg/dl Borderline Risk 240 mg/dl and greater High Risk Performed By: #### 0 0071, 90641 #### [facility] [address] [place] [address], [facility] Cholesterol in HDL [Mass/Vol] 30 mg/dL Normal 23-92 [facility] Comment on above: Order Comment: No: D o not add to previous draw Result Comment: Slig ht variation in normal range could be due to gender and/or age. HDL CHOLESTEROL REFERENCE RANGE: 20 years and older Cardiovascular Risk > or =60 mg/dL Desirable 40 TO 59 mg/dL Low Risk <40 mg/dL High Risk Performed By: #### 0 0071, 04544 #### [facility] [address] [place] [address], [facility] Cholesterol in LDL [Mass/Vol] 73 mg/dL Normal 0-130 [facility] Comment on above: Order Comment: No: D o not add to previous draw Result Comment: LDL IS A CALCULATION LDL IS ONLY VALID IF THE TRIG IS LESS THAN 400. Performed By: #### 0 0071, 02806 #### [facility] [address] [place] [address], [facility] Cholesterol.total/Chol esterol in HDL [Mass ratio] 4.8 {ratio} High 0.0-4.5 [facility] Comment on above: Order Comment: No: D o not add to previous draw Performed By: #### 0 0071, 85681 #### [facility] [address] [place] [address], [facility] NON-HDL CHOLESTEROL 114 mg/dL Normal [facility] Comment on above: Order Comment: No: D o not add to previous draw Performed By: #### 0 0071, 39179 #### [facility] [address] [place] [address], [place] Triglyceride [Mass/Vol] 203 mg/dL High 40-149 [facility] Comment on above: Order Comment: No: D o not add to previous draw Result Comment: TRIG LYCERIDE REFERENCE RANGE: 20 YEARS AND OLDER CARDIOVASCULAR RISK LESS THAN 150 mg/dl LOW RISK 150 TO 199 mg/dl BORDERLINE RISK 200 mg/dl AND GREATER HIGH RISK Performed By: #### 0 0071, 30449 #### [facility] [address] VLDL CHOL 41 mg/dL High 0-40 [facility] Comment on above: Order Comment: No: D o not add to previous draw Performed By: #### 0 0071, 38040 #### [facility] [address] PROTHROMBIN TIMEon 1 INR Coag (PPP) [Relative time] 1.00 {INR} Normal 0.91-1.16 [facility] Comment on above: Order [...] 1995;108:231S-246S. Performed By: #### 5 6101 #### [facility] [address] [facility]. [address] PT Coag (PPP) [Time] 13.2 s Normal 12.3-14.8 [facility] Comment on above: Order Comment: No: D o not add to previous draw Result Comment: ALL RESULTS MUST BE INTERPRETED WITH RESPECT TO BLOOD DRAWING ARTIFACT OR DILUTION ERROR OF ANTICOAGULANT AT THE TIME OF SAMPLING. Performed By: #### 5 6101 #### [facility] [address] BNP (B-TYPE NATRIURETIC PEPT FELISA)on 10-09-2020 Natriuretic peptide B (Bld) [Mass/Vol] 32 pg/mL Normal 0-100 [facility] Comment on above: Order Comment: No: D o not add to previous draw Result Comment: Give n the appropriate clinical setting a BNP result of >100 pg/mL indicates congestive heart failure. Performed By: #### 8 5123 #### [facility] [address] TROPONIN-Ion 10-09-2020 Troponin I.cardiac [Mass/Vol] 0.00 ng/mL Normal 0.00-0.04 [facility] Comment on above: Order Comment: No: D o not add to previous draw Result Comment: REFE RENCE RANGES: 0.00 - 0.14 ng/ml NEGATIVE 0.15 - 0.25 ng/ml INDETERMINATE > 0.25 ng/ml INDICATIVE OF AN M.I. Performed By: #### 3 5200 #### [facility] [address] Provider Letter FTMCon 09-20 Provider Letter [facility] Hoa Tran, [facility] [place] [address] Re: KARLA MCCOLLUM Date of : 1950 Thank you for your referral of Karla Mccollum who was seen on consultation on Sep 17, 2020, for three skin lesions of concern. I have enclosed my consultation note for your review, and I will be happy to follow Karla should he need further treatment. Sincerely, Karla Dye MD General Surgery Normal [facility] Facesheeton 09-18-2020 Facesheet [id number] #[id number]:127 Normal [facility] Ambulatory Clinical Summaryo n 09-17-2020 Ambulatory Clinical Summary {[id number] Normal [facility] General Surgery Office/Clini c Noteon 09-17-2020 [...] Primary malignant neoplasm of lung: Father. Normal [facility] Comment on above: Result Comment: Elec tronically Signed By: SHEY WARD, Karla Leos\Date and Time Signed: 09/17/20 16:29 EST Physician Referralon 021 Physician Referral [id number] #[id number]:127 Normal [facility] Vital Signs Date Time Vital Sign Value Performing Clinician Faci codyy 04-24-2025 09:32-0400 Body height 177.8 cm Sadaf Malhotra MD Work Phone: [facility] 04-24-2025 09:32-0400 Body mass index (BMI) [Ratio] 35.15 kg/m2 Sadaf Malhotra MD Work Phone: [facility] 04-24-2025 09:32-0400 Body weight 111.13 kg Sadaf Malhotra MD Work Phone: [facility] 04-24-2025 09:32-0400 Diastolic blood pressure 74 mm[Hg] Sadaf Malhotra MD Work Phone: [facility] 04-24-2025 09:32-0400 Heart rate 62 /min Sadaf Malhotra MD Work Phone: [facility] 04-24-2025 09:32-0400 Systolic blood pressure 137 mm[Hg] Sadaf Malhotra MD Work Phone: [facility] 04-18-2025 13:08-0400 Body height 177.8 cm Sadaf Malhotra MD Work Phone: [facility] 04-18-2025 13:08-0400 Body mass index (BMI) [Ratio] 35.15 kg/m2 Sadaf Malhotra MD Work Phone: [facility] 04-18-2025 13:08-0400 Body weight 111.13 kg Sadaf Malhotra MD Work Phone: [facility] 04-18-2025 13:08-0400 Diastolic blood pressure 60 mm[Hg] Sadaf Malhotra MD Work Phone: [facility] 04-18-2025 13:08-0400 Heart rate 62 /min Sadaf Malhotra MD Work Phone: [facility] 04-18-2025 13:08-0400 Systolic blood pressure 127 mm[Hg] Sadaf Malhotra MD Work Phone: [facility] 05-30-2024 10:29-0400 Body height 177.8 cm Sadaf Malhotra MD Work Phone: [facility] 05-30-2024 10:29-0400 Body mass index (BMI) [Ratio] 36.16 kg/m2 Sadaf Malhotra MD Work Phone: [facility] 05-30-2024 10:29-0400 Body weight 114.31 kg Sadaf Malhotra MD Work Phone: [facility] 05-30-2024 10:29-0400 Diastolic blood pressure 71 mm[Hg] Sadaf Malhotra MD Work Phone: [facility] 05-30-2024 10:29-0400 Systolic blood pressure 130 mm[Hg] [...] Telephone encounter Sadaf Malhotra MD [facility] Comment on above: ear drops [...] flowsheet Jacqui Guillen MD Work Phone: [facility] Start: 12-04-2024 End: 12-04-2024 Office outpatient visit 25 minutes Jacqui Guillen MD Work Phone: [facility] Comment on above: Other seborrheic ochoa matitis (Primary Dx); Melanocytic nevus of trunk; Actinic keratosis; Lentigines; Stasis dermatitis of both legs Start: 12-04-2024 End: 12-04-2024 ambulatory JACQUI GUILLEN Not Available Start: 11-20-2024 End: 11-20-2024 ambulatory [facility] Start: 11-08-2024 End: 11-08-2024 ambulatory SADAF MLAHOTRA Not Available Start: 10-30-2024 End: 10-30-2024 Clinisync [...] Start: 05-15-2024 End: 05-15-2024 ambulatory Hoa Tran [facility] Work Phone: Start: 05-15-2024 End: 05-15-2024 Departed Referred MD Hoa Tran Work Phone: [facility] Start: 12-22-2023 End: 12-22-2023 ambulatory NELI STERN [facility] Start: 12-15-2023 End: 12-15-2023 ambulatory Bismark Redd Facility:[facility] Start: 11-24-2022 End: 11-25-2022 ambulatory [...] [address] [place] [address] Sadaf Malhotra MD [address] [place] [address] Arrived [facility] [place] [facility] Comment on above: Arrived Start: 04-16-2025 Influenza vaccination [facility] Start: 12-04-2024 End: 12-04-2024 Patient encounter procedure [facility] Comment on above: Arrived Start: 11-08-2024 End: 11-08-2024 Patient encounter procedure 11/08/2024 8:30 AM EDT Office Visit [facility] [address] [place] [address] Sadaf Malhotra MD [address] [place] [address] [facility] Start: 05-30-2024 End: 05-30-2024 Patient encounter procedure 05/30/2024 10:30 AM EDT Office Visit [facility] [address] [place] [address] Sadaf Malhotra MD [address] [place] [address] Arrived [facility] Comment on above: Arrived Start: 04-16-2024 Influenza vaccination Influenza Vacc ine (#1) [facility] Start: 1950 Screening for malignant neoplasm of colon [facility] Immunizations Immunization Date Immunization Notes Care Provider Maty parisi 05-03-2023 influenza virus vacc ine, unspecified formulation Sadaf Malhotra MD Work Phone: [facility] Payers Date Payer Category Payer Medicare [id number] 2023 Self-pay 2023 Medicare (Managed Care) 1.2. [id number] 2023 Medicare [id number] 1958 Medicare [id number] 1959 Unknown [id number] 1950 Unknown [id number] [id number] 1950 Unknown [id number] [id number] 1950 Unknown [id number] [id number] 1950 Unknown [id number] [id number] 1950 Unknown [id number] 2.16.840.1.869512.3.579.2.1259 1951 Unknown [id number] 2.16.840.1.833120.3.579.2.1259 1951 Unknown [id number] 2.16.840.1.692036.3.579.2.1259 1951 Unknown [id number] 2.16.840.1.180523.3.579.2.1259 1950 Unknown [id number] [id number] Unknown [employer] BC/BS [id number] Unknown Insurance No Card [id number] Unknown [id number] [id number] Unknown [id number] Social History Date Type Detail Facility Start: 07-14-2021 Tobacco smoking stat [facility] Never smoked tobacco (finding) [facility] Start: 1950 Sex Assigned At Male F [facility] Start: 12-02-2023 Tobacco smoking stat [facility] Tobacco smoking consumption unknown [facility] Start: 1950 Sex assigned at Not on file [facility] Start: 05-30-2024 End: 04-24-2025 Gender identity Not on file [facility] Start: 05-30-2024 Tobacco smoking stat [facility] Ex-smoker [facility] History of tobacco use Current smoker [facility] History of tobacco use Cigarette Smoker [facility] History of tobacco use Passive smoker [facility] Start: 05-30-2024 Tobacco use and exposure Smokeless tobacco non-user [facility] Start: 05-30-2024 End: 04-24-2025 Alcoholic beverage intake Current drinker of alcohol (finding) [facility] Start: 05-30-2024 End: 04-24-2025 History of Social function [facility] Healthcare Clinical Notes 12-17-2021 to 04-24-2025 Sadaf [...] armpits, and groin 80 g 2 [DISCONTINUED] cetupxsz-jbgbrnsyf-nabsotcdsaokks (Cortisporin) 3.5-72646-6 otic suspension every 8 (eight) hours No [...] if growth perceived. documented in this encounter [facility] 04-23-2025 Telephone encounter Note Griffiths pt/told pt to stop the drops and made appt for him to come into office 04/24/25. [facility] 04-23-2025 Miscellaneous Notes Griffiths pt/told pt to [...] on his pillowcase. documented in this encounter [facility] 04-23-2025 Telephone encounter Note F/U tomorrow. Stop drops [facility] 04-23-2025 Telephone encounter Note Pt called in to say that the ear drop that was prescribed joseph. It is the clotrimazole 1%. He also noticed the last couple of mornings he has had a small amount of blood on his pillowcase. [facility] 04-18-2025 History of Present illness Narrative Images [...] armpits, and groin 80 g 2 [DISCONTINUED] xruwfyla-kspakltgo-qnisgkzyymgdss (Cortisporin) 3.5-51213-8 otic suspension every 8 (eight) hours No [...] well as diflucan. documented in this encounter [facility] 12-04-2024 History of Present illness Narrative Images [...] limited to risks of scarring, darker or director international pigmentary changes, recurrence, incomplete removal and infection. [...] - Anterior, Right Lower Leg - Anterior [place] scaly plaques in areas of edema The [...] Visit: 1 year documented in this encounter [facility] 11-20-2024 Note [place] [facility] - [facility] Subjective Karla Mccollum is a 74 [...] mg daily. He was admitted to the [facility] on 05/06/2023 with chest pain and [...] Mood normal. Be (more content not included)... [facility] 05-30-2024 History of Present illness Narrative Subjective Patient ID: Karla Mccollum is a 74 y.o. male who presents for Neck Mass ( FNA 05/15/24 [facility]) Pt reports that in the course of being evaluated for a left submandibular mass he was found to also have thyroid nodules. US of the submental mass shows a 45i15v1ki mass. FNA c/w a lipoma. Thyroid US shows a 15i98b4wb RT TR5 nodule and a 34z01a5ay LT TR4 nodule. Path on each thyroid nodule was Walker 1. No known radiation exposure or family [...] tablet Take 100 mg by mouth Daily kidywbnx-lebjmkfks-qpatepqpmnrpxy (Cortisporin) 3.5-98839-6 otic suspension every 8 (eight) hours omeprazole [...] bx, or removal documented in this encounter [facility] 12-22-2023 Note [place] [facility]iology - [facility] Subjective Karla Mccollum is a [...] mg daily. He was admitted to the [facility] on 05/06/2023 with chest pain and [...] Disp: 90 tablet, (more content not included)... [facility] 12-17-2021 Note CARDIAC STRESS TEST Requesting [...] and reported in a separate dictation. [facility]: Evaluation note Diagnosis Nontoxic multinodular goiter (CMS/HCC)- Primary Nontoxic multinodular goiter Neck mass Swelling, mass, or lump in head and neck documented in this encounter [facility] HealthcareEvaluation note* Diagnosis Other seborrheic dermatitis- Primary Melanocytic nevus of trunk Benign neoplasm of skin of trunk, except scrotum Actinic keratosis Lentigines Stasis dermatitis of both legs [facility] Diagnosis Chronic myringitis of left ear- Primary Other infective chronic otitis externa of left ear Foreign body of left ear, initial encounter documented in this encounter [facility] HealthcareEvaluation note* Diagnosis Chronic myringitis of left [...] Records Found Hospital Course Note MR#: [id number] [facility] Pt[facility] Name: Karla Mccollum Admitted: 10/09/2020 [...] section and content) DATE CREATED AUTHOR 09/22/2020 [facility] DATE CREATED AUTHOR AUTHOR'S ORGANIZ ATION 10/15/2020 [facility] DATE CREATED AUTHOR AUTHOR'S ORGANIZ ATION 11/30/2022 [facility] DATE CREATED AUTHOR AUTHOR'S ORGANIZ ATION 05/20/2024 [facility] DATE CREATED AUTHOR AUTHOR'S ORGANIZ ATION 11/21/[address] [facility] DATE CREATED AUTHOR AUTHOR'S ORGANIZ ATION 04/26/2025 [facility] Care Teams (unrecognized sec tion and content) Team Status: Inactive Member Role Status Dates Hoa Tran MD Attending Provider Active Sta rt: May 15, 2024 End: May 15, 2024 Invoicing Machine Operator Relationship Specialty Start Date End Date Hoa Tran MD [address] [facility] [place] [address] PCP - General Family Medicine 05/30/24 Invoicing Machine Operator Relationship Specialty Start Date End Date Hoa Tran MD [address] [facility] [place] [address] PCP - General Family Medicine 05/30/24 Invoicing Machine Operator Relationship Specialty Start Date End Date Hoa Tran MD [address] [facility] [place] [address] PCP - General Family Medicine 05/30/24 Invoicing Machine Operator Relationship Specialty Start Date End Date Hoa Tran MD [address] [facility] [place] [address] PCP - General Family Medicine 05/30/24 Invoicing Machine Operator Relationship Specialty Start Date End Date Hoa Tran MD [address] [facility] [place] [address] PCP - General Family Medicine 05/30/24 Invoicing Machine Operator Relationship Specialty Start Date End Date Hoa Tran MD [address] [facility] [place] [address] PCP - General Family Medicine 04/18/25 Invoicing Machine Operator Relationship Specialty Start Date End Date Hoa Tran MD [address] [facility] [place] [address] PCP - General Family Medicine 04/18/25 Invoicing Machine Operator Relationship Specialty Start Date End Date Hoa Tran MD [address] [place] [address] PCP - General Family [facility] 04/18/25 Invoicing Machine Operator Relationship Specialty Start Date End Date Hoa Tran MD [address] [place] [address] PCP - [facility] 04/18/25 Invoicing Machine Operator Relationship Specialty Start Date End Date Hoa Tran MD [address] [facility] [place] [address] PCP - General Family [facility] 04/18/25 Invoicing Machine Operator Relationship Specialty Start Date End Date Hoa Tran MD [address] [facility] [place] [address] PCP - General Family Medicine 04/18/25 Goals [...] BE BASED ON THE PRIMARY CLINICAL RECORDS. [facility] [employer] [facility] provides no warranty or guarantee of the accuracy or completeness of information in this document.
== END 2025-05-02 09:10 | disposition home or self-care (01) ==
LOC: LAB 09:09
PROVIDERS: PCP Family Medicine; Visit Provider Family Medicine
DX: R07.9 Chest pain, unspecified (principal); I10 Essential (primary) hypertension; R79.89 Other specified abnormal findings of blood chemistry
CPT/HCPCS: G0328

== ENCOUNTER 2025-05-30 08:45 | Outpatient (OUT) | payer MEDICARE, SELFPAY ==
--- OUTSIDE RECORDS SUMMARY | 2025-05-28 09:40 | XMS_ITS | Encounter Summary ---
Author Organization [facility] Address [address] [place] [address] Care Team Providers Care Family Mediator Name Role Phone Carlo Tran MD Primary Care Provider [phone] Reason for Visit * Reason Comments Ear Problem Lt ear follow up Encounter Details Date Type Department Care Team (Late st Contact Info) Description 05/28/2025 9:40 AM EDT Office Visit [facility] [address] [place] [address] Sadaf Ashford MD [address] [place], [place] [id number] Chronic myringitis of left ear (Primary Dx) Social History Tobacco Use Types Packs/Day Years Used Date Smoking Tobacco: Former Cigarettes Passive Smoke Exposure: Past Smokeless Tobacco: Never Alcohol Use Standard Drinks/Week Comments Yes 1 (1 standard drink = 0.6 oz pur e alcohol) Sex and Gender Information Value Date Recorded Sex Assigned at Not on file Legal Sex Male 7:13 PM EDT Gender Identity Not on file Sexual Orientation Not on file documented as of this encounter Last Filed Vital Signs Vital Sign Reading Time Taken Comments Blood Pressure 148/71 05/28/2025 9:22 AM EDT Pulse 64 05/28/2025 9:22 AM EDT Temperature - - Respiratory Rate - - Oxygen Saturation - - Inhaled Oxygen Concentration - - Weight 112 kg (246 lb) 05/28/2025 9:22 AM EDT Height 177.8 cm (5' 10 ) 05/28/2025 9:22 AM EDT Body Mass Index 35.3 05/28/2025 9:22 AM EDT documented in this encounter Progress Notes * Sadaf Ashford MD - 05/28/2025 9:40 AM EDT Subjective Patient ID: Brandon Mccollum is a 75 y.o. male who presents for Ear Problem (Lt ear follow up) Ear sx improved, but still has drainage Family History[1] Active Ambulatory Problems Diagnosis Date Noted Multiple gouty tophi 05/30/2024 Nontoxic multinodular goiter 05/30/2024 Neck mass 05/30/2024 Cardiovascular stress test abnormal 09/04/2022 Chest pain 09/04/2022 Arteriosclerosis of coronary artery 11/08/2024 Diverticular disease 09/04/2022 Dyslipidemia 12/06/2017 Essential hypertension 12/06/2017 Gastroenteritis 09/04/2022 Gastroesophageal reflux 12/06/2017 Hx of total shoulder replacement, left 10/27/2021 Hypertensive left ventricular hypertrophy 09/04/2022 Hypertriglyceridemia 09/04/2022 Abnormal finding of diagnostic imaging 05/09/2025 Hesitancy of micturition 05/09/2025 History of total left hip replacement 05/09/2025 Hives 05/09/2025 Impacted cerumen 05/09/2025 Intestinal malabsorption (HCC) 05/09/2025 Iron deficiency anemia 05/09/2025 Morbid obesity (CMS-HCC) 05/09/2025 Obstructive sleep apnea 05/09/2025 Primary localized osteoarthrosis of shoulder region 05/09/2025 Pulmonary hypertension (HCC) 05/09/2025 Thyroid nodule 05/09/2025 Resolved Ambulatory Problems Diagnosis Date Noted No Resolved Ambulatory Problems No Additional Past Medical History Surgical History[2] Allergies[3] Medications Ordered Prior to Encounter[4] Objective Last Recorded Vitals Vitals: 05/28/25 0922 BP: 148/71 Pulse: 64 ENT Physical Exam Ear Ear comments: LT moist debris suctioned. Mild EAC inflammation and TM inflammation around perf. Boric acid powder insufflated in to the EAC Assessment/Plan Diagnoses and all orders for this visit: Chronic myringitis of left ear Ear debrided and med insufflated without complication. F/U [place] 2 weeks [1] Family History Problem Relation Name Age of Onset Heart failure Mother Cancer Father Melanoma Brother [2] Past Surgical History: Procedure Laterality Date REPLACEMENT TOTAL HIP LATERAL POSITION 15 years ago SHOULDER ARTHROSCOPY Left 2018 [3] No Known Allergies [4] Current Outpatient Medications on File Prior to Visit Medication Sig Dispense Refill amLODIPine (Norvasc) 10 MG tablet Take 10 mg by mouth Daily aspirin 81 MG EC tablet in the morning. atorvastatin (Lipitor) 40 MG tablet Take 40 mg by mouth in the morning. ezetimibe (Zetia) 10 MG tablet fenofibrate (Tricor) 145 MG tablet Take 145 mg by mouth Daily fluconazole (Diflucan) 100 MG tablet 2 pills day one and then one pill daily for 13 days 15 tablet 0 irbesartan (Avapro) 150 MG tablet Take 150 mg by mouth Daily isosorbide mononitrate ER (Imdur) 120 MG 24 hr tablet Take 120 mg by mouth liothyronine (Cytomel) 5 MCG tablet Take by mouth Daily meloxicam (Mobic) 15 MG tablet 1 (one) time each day at the same time metoprolol succinate XL (Toprol-XL) 100 MG 24 hr tablet Take 100 mg by mouth Daily nitroglycerin (Nitrostat) 0.4 MG SL tablet DISSOLVE 1 TABLET UNDER THE TONGUE NEEDED FOR CHEST PAIN- MAY REPEAT EVERY 5 MINUTES IF NEEDED ( MAX 3 DOSES.- IF NO RELIEF CALL 911) omeprazole (PriLOSEC) [address] capsule ranolazine (Ranexa) 1000 MG 12 hr tablet Take 1 tablet by mouth in the morning and 1 tablet before bedtime. tamsulosin (Flomax) 0.4 MG 24 hr capsule Take 0.4 mg by mouth Daily No current facility-administered medications on file prior to visit. documented in this encounter Plan of Treatment Upcoming Encounters Date Type Department Care Team (Late st Contact Info) Description 06/11/2025 1:00 PM EDT Office Visit [facility] [address] [place] [address] Sadaf Ashford MD [address] [facility] [address] [place] [address] 12/04/2025 9:35 AM EDT Office Visit [facility] [address] [place] [address] Jacqui Mensah MD [address] [facility] [address] [place] [address] 04/24/2026 8:00 AM EDT Office Visit [facility] [place] [facility] [address] [facility] [address] [place] [address] Sadaf Ashford MD [address] [facility] [address] [place] [address] documented as of this encounter Visit Diagnoses Diagnosis Chronic myringitis of left ear- Primary documented in this encounter Care Teams Family Mediator Relationship Specialty Start Date End Date Carlo Tran MD [address] [place] [address] PCP - General Family Medicine 04/18/25 documented as of this encounter
--- OUTSIDE RECORDS SUMMARY | 2025-05-30 08:50 | XMS_ITS | Encounter Summary ---
Author Organization [facility] Address [address] [place] [address] Care Team Providers Care Mold Cutting Machine Operator Name Role Phone Carlo Tran MD Primary Care Provider [phone] Encounter Details Date Type Department Care Team (Late st Contact Info) Description 05/28/2025 Bamboo flowsheet [facility] [address] [place] [address] Sadaf Ashford MD [address] [facility] [address] [place] [address] Social History Tobacco Use Types Packs/Day Years [...] on file documented as of this encounter Plan of Treatment Upcoming Encounters Date Type Department Care Team (Late st Contact Info) Description 06/11/2025 1:00 PM EDT Office [facility] [address] [place] [address] Sadaf Ashford MD [address] [place] [address] 12/04/2025 9:35 AM EDT Office Visit [facility] [address] [place] [address] Jacqui Mensah MD [address] [place] [address] 04/24/2026 8:00 AM EDT Office Visit [facility] [address] [facility] [address] [place] [address] Sadaf Ashford MD [address] [facility] [address] [place] [address] documented as of this encounter Visit Diagnoses Not on filedocumented in this encounter Care Teams Mold Cutting Machine Operator Relationship Specialty Start Date End Date Carlo Tran MD [address] [place] [address] PCP - General Family Medicine 04/18/25 documented as of this encounter
--- OUTSIDE RECORDS SUMMARY | 2025-05-30 08:50 | XMS_ITS | Clinical Summary ---
Author Organization [employer] Address [facility] [place] [id number] [address] [place] [address] Care Team Providers Care Manager Critical Care Name Role Phone Carlo Tran MD Primary Care Provider [phone] Allergies No known active allergies Medications amLODIPine (NORVASC) 10 mg tabletIndications :hypertension Take 10 mg by mouth daily Indications: high blood pressure. 06/01/20 Active fenofibrate (TRICOR) 145 mg tabletIndications :hyperlipidemia Take 145 mg by mouth daily Indications: excessive fat in the blood. Active omeprazole (PriLOSEC) 40 mg capsuleIndication s:gastroesophagea l reflux disease Take 40 mg by mouth every morning before breakfast Indications: gastroesophageal reflux disease. Active atorvastatin (LIPITOR) 20 mg tabletIndications :mixed hyperlipidemia Take 20 mg by mouth daily Indications: high cholesterol and high triglycerides. Active acetaminophen (TYLENOL) 500 mg tablet Take 1,000 mg by mouth every 6 (six) hours as needed for pain. Active aspirin 81 mgIndications:kary cardial infarction prevention Take 81 mg by mouth daily Indications: treatment to prevent a heart attack. Active irbesartan (AVAPRO) 150 mg tabletIndications :hypertension daily Indications: high blood pressure. Active carvediloL (COREG) 6.25 mg tabletIndications :hypertension Take 6.25 mg by mouth 2 (two) times a day with meals Indications: high blood pressure. Active isosorbide mononitrate (IMDUR) 120 mg 24 hr tabletIndications :prevention of anginal pain in coronary artery disease Take 120 mg by mouth daily Indications: prevention of anginal chest pain associated with coronary artery disease. Active ferrous sulfate 325 (65 FE) mg tabletIndications :iron deficiency anemia Take 325 mg by mouth daily with breakfast Indications: anemia from inadequate iron. Active traMADoL (ULTRAM) 50 mg tabletIndications :Primary osteoarthritis of left shoulder Take 1 tablet (50 mg total) by mouth every 6 (six) hours as needed for pain for up to 28 doses. 28 tablet 06/13/20 21 Active Additional Information Patient not taking.Reported on 10/27/2021 Active Problems Problem Noted Date Diagnosed Date Hx of total shoulder replacement, left 2 Status post total hip replacement, left 12/22/19 Obstructive sleep apnea on CPAP 12/06/2017 Essential hypertension 12/06/2017 Gastroesophageal reflux 12/06/2017 Dyslipidemia 12/06/2017 Iron deficiency anemia, unspecified 11/23/2017 Iron malabsorption 11/23/2017 Coronary artery disease Coronary artery spasm Osteoarthritis of left shoulder Resolved Problems Problem Noted Date Diagnosed Date Resolved Date Encounter for long-term (cur rent) use of medications 11/11/2017 12/06/2017 Pain of left hip joint 06/23/201712/06 Primary osteoarthritis of left hip 06/23/2017 12/07/2017 Family History Medical History Relation Name Comments Cancer Father Heart disease Maternal Grandfather Diabetes Mother Heart disease Mother Hypertension Mother Anesthesia problems Neg Hx Bleeding Disorder Neg Hx Clotting disorder Neg Hx Colon cancer Neg Hx Prostate cancer Neg Hx Stroke Neg Hx Relation Name Status Comments Brother 1 Alive Brother 2 Alive Brother 3 Alive Brother 4 Alive Brother 5 Alive Brother 6 Alive Father Maternal Grandfather Maternal Grandmother Mother Alive Paternal Grandfather Paternal Grandmother Sister 1 Alive Sister 2 Alive Sister 3 Alive Social History Tobacco Use Types Packs/Day Years Used Date Smoking Tobacco: Former Cigarettes 1 7 0 11/26/1987 - 11/25/1994 Smokeless Tobacco: Former Chew Tobacco Cessation:Counseling Given: No Alcohol Use Standard Drinks/Week Comments Yes 3 (1 standard drink = 0.6 oz pur e alcohol) occasionally Childcare Answer Date Recorded Childcare Unknown 01/25/2019 Employment Answer Date Recorded Employment Unknown 01/25/2019 Purpose - Life Answer Date Recorded Purpose and direction in life Unknown Sex and Gender Information Value Date Recorded Sex Assigned at Not on file Legal Sex Male 11:41 AM EDT Gender Identity Not on file Sexual Orientation Not on file Last Filed Vital Signs Vital Sign Reading Time Taken Comments Blood Pressure 131/78 06/13/2021 4:46 PM EDT Pulse 78 06/13/2021 4:46 PM EDT Temperature 36.6 C (97.9 F) 06/13/2021 4:46 PM EDT Respiratory Rate 16 06/13/2021 4:46 PM EDT Oxygen Saturation 95% 06/13/2021 4:46 PM EDT Inhaled Oxygen Concentration - - Weight 107.5 kg (237 lb) 06/03/2022 11:06 AM EDT Height 177.8 cm (5' 10 ) 06/03/2022 11:06 AM EDT Body Mass Index 34.01 06/03/2022 11:06 AM EDT Plan of Treatment Health Maintenance Due Date Last Done Comments Statin Use: Cardiovascular 1950 Depression Screening 1963 Tobacco Screening 1962 DTaP,Tdap and Td Vaccines (1 - Tdap) 1970 Abdominal Aortic Aneurysm (A AA) Screen 2016 Fall Risk Screening 2016 Adult BMI Screening 06/03/2023 06/03/2022 COVID-19 Vaccine (5 - 2024-2 6 season) 2025 12/17/2021, 06/09/2021, 10/21/2020, Additional history exists Influenza Vaccine 04/16/2025 05/26/2021, , 05/17/2020, Additional history exists Zoster (Shingles) Vaccine Completed 07/30/2020, Goals Goal Patient Goal Type Associated Problems Recent Progress Patient-Stated? Author Improve mobility General Yes Yessenia Benz, RN Note: Evaluation of progress towards goal: Maximize work with PT at discharge to strengthen L shoulder Medical Devices Implanted Type Area Cork Grinder Device Identifier Shelf Expiration Date Model / Serial / Lot Cement Bn Bio 40gm Rpl [id number] - [id number] Implanted:Q ty: 1 on 06/13/2021 by Abdon Novak MD at [facility] A DIVISION OF [facility] Cement Left: Shoulder [employer] [id number] 02/13/2024 [id number] / / [id number] Shl Actb 52mm Hip 3 Hl Fin Pps - [id number] Implanted:Q ty: 1 on 12/06/2017 by Raul Manzano MD at [facility] Orthopedic Implant Left: Hip [employer] 07/08/2027 [id number] / / [id number] Linr Actb G7 Ntrl E1 36mm E - [id number] Implanted:Q ty: 1 on 12/06/2017 by Raul Manzano MD at [facility] Orthopedic Implant Left: Hip [employer] 10/20/2022 [id number] / / [id number] Stm Fem 107.5mm 133d 11 Hi Os - [id number] Implanted:Q ty: 1 on 12/06/2017 by Raul Manzano MD at [facility] Orthopedic Implant Left: Hip [employer] 11/01/2027 [id number] / / [id number] Slv Fem Opt -3mm Tpr Hip Blx D Rpl 650-1065 - [id number] Implanted:Q ty: 1 on 12/06/2017 by Raul Manzano MD at [facility] Orthopedic Implant Left: Hip [employer] 07/05/2027 [id number] / / [id number] Hd Fem 36mm Opt Shl Actb G7 Bl Rpl 650-1057 - [id number] Implanted:Q ty: 1 on 12/06/2017 by Raul Manzano MD at [facility] Orthopedic Implant Left: Hip [employer] 05/28/2027 [id number] / / [id number] Component Robert 4 4 Pg Mdlr Aln Shldr Strl Lf - [id number] Implanted:Q ty: 1 on 06/13/2021 by Abdon Novak MD at [facility] Orthopedic Implant Left: Shoulder [employer] [id number] 05/04/2028 [id number] / / [id number] Component Robert Post Mdlr Aln Strl Lf - [id number] Implanted:Q ty: 1 on 06/13/2021 by Abdon Novak MD at [facility] Orthopedic Implant Left: Shoulder [employer] [id number] 06/29/2030 [id number] / / [id number] Stem Hum 83mm 10mm Cmprh Por Mn Shldr Rvrs Sys - [id number] Implanted:Q ty: 1 on 06/13/2021 by Abdon Novak MD at [facility] Orthopedic Implant Left: Shoulder [employer] 08/03/2030 [id number] / / [id number] Adapter Hd Ti Std Tpr Cmprh Versa-Dial Hum Rvrs Shldr Sys - [id number] Implanted:Q ty: 1 on 06/13/2021 by Abdon Novak MD at [facility] Orthopedic Implant Left: Shoulder [employer] 02/14/2031 [id number] / / [id number] Head Hum 21mm 57mm 50mm Shldr Cmprh Versa-Dial Rpl [id number] - [id number] Implanted:Q ty: 1 on 06/13/2021 by Abdon Novak MD at [facility] Other Implant Left: Shoulder [employer] 04/05/2030 [id number] / / [id number] Insurance MEDICARE COUNT INCLUDES THE [facility] Advance Directives * Full Code (Latest Code Status on File) Date Activated Date Inactivated Comments 06/13/2021 10:58 AM 06/13/2021 7:30 PM * Full Code Date Activated Date Inactivated Comments 12/06/2017 12:35 PM 12/07/2017 4:08 PM Care Teams Manager Critical Care Relationship Specialty Start Date End Date Carlo Tran MD PCP - General 06/23/17
--- OUTSIDE RECORDS SUMMARY | 2025-05-30 08:50 | XMS_ITS | Encounter Summary ---
[facility] Address [id number] [address] [place] [address] Care Team Providers Care Director Title Name Role Phone Carlo Tran MD Primary Care Provider [phone] Encounter Details Date Type Department Care Team ([facility] st Contact Info) Description 05/07/2021 Orders Only [facility] [address] [place] [phone] Carlo Tran MD [address] [place] [address] Social History Tobacco Use Types Packs/Day Years Used Date Smoking Tobacco: Former Cigarettes 1 7 0 11/26/1987 - 11/25/1994 Smokeless Tobacco: Current Chew Comments:quit smoking 20 yea rs ago Alcohol Use Standard Drinks/Week Comments Yes 0 (1 standard drink = 0.6 oz pur e alcohol) a few drinks a month Childcare Answer Date Recorded Childcare Unknown 01/25/2019 Employment Answer Date Recorded Employment Unknown 01/25/2019 Purpose - Life Answer Date Recorded Purpose and direction in life Unknown Sex and Gender Information Value Date Recorded Sex Assigned at Not on file Legal Sex Male 11:41 AM EDT Gender Identity Not on file Sexual Orientation Not on file COVID-19 Exposure Response Date Recorded In the last month, have you been in contact with someone who was confirmed or suspected to have Coronavirus / COVID-19? No / Unsure 05/05/2021 9:44 AM EDT documented as of this encounter Plan of Treatment Not on file documented as of this encounter Procedures Procedure Name Priority Date/Time Associated Diagnosis Comments MR SHOULDER LT WO CONT Routine 02/21/2021 XR SHOULDER LT MIN 2 VWS Routine 02/11/2021 documented in this encounter Results * MR shoulder left without contrast (02/21/2021) Anatomical Region Laterality Modality MSK, Shoulder, Upper Extremities, MSK [place] t Magnetic Resonance Carlo CARLTONG MRI ORDERABLES Final Result * X-ray shoulder left minimum 2 views (02/11/2021) Anatomical Region Laterality Modality MSK, Upper Extremities, Shoulder Left Computed Radiography Carlo CARLTONG DIAGNOSTIC IMAGING ORDERABL ES Final Result documented in this encounter Visit Diagnoses Not on filedocumented in this encounter Care Teams Director Title Relationship Specialty Start Date End Date Cralo Tran MD PCP - General 06/23/17 documented as of this encounter
--- OUTSIDE RECORDS SUMMARY | 2025-05-30 08:50 | XMS_ITS | Clinical Summary ---
Author Organization [facility] Address [address] [place] [address] Phone Care Team Providers Care Home Connect Lpn Name Role Phone Unavailable Primary Care Provider Unavailabl e Social History Tobacco Use Types Packs/Day Years Used Date Smoking Tobacco: Never Assessed Sex and Gender Information Value Date Recorded Sex Assigned at Not on file Legal Sex Male 9:40 AM EST Gender Identity Not on file Sexual Orientation Not on file Plan of Treatment Not on file
--- OUTSIDE RECORDS SUMMARY | 2025-05-30 08:50 | XMS_ITS | Clinical Summary ---
Author Organization [facility] Address [address] [place] [address] Care Team Providers Care Principal Architectural Firm Name Role Phone Carlo Tran MD Primary Care Provider [phone] Allergies No known active allergies Medications amLODIPine (Norvasc) 10 MG tablet Take 10 mg by mouth Daily Active aspirin 81 MG EC tablet in the morning. Active atorvastatin (Lipitor) 40 MG tablet Take 40 mg by mouth in the morning. Active ezetimibe (Zetia) 10 MG tablet 08/17/19 24 Active fenofibrate (Tricor) 145 MG tablet Take 145 mg by mouth Daily Active irbesartan (Avapro) 150 MG tablet Take 150 mg by mouth Daily Active isosorbide mononitrate ER (Imdur) 120 MG 24 hr tablet Take 120 mg by mouth 08/17/19 24 Active metoprolol succinate XL (Toprol-XL) 100 MG 24 hr tablet Take 100 mg by mouth Daily Active omeprazole (PriLOSEC) [address] capsule Active ranolazine (Ranexa) 1000 MG 12 hr tablet Take 1 tablet by mouth in the morning and 1 tablet before bedtime. Active meloxicam (Mobic) 15 MG tablet 1 (one) time each day at the same time 04/11/20 25 Active nitroglycerin (Nitrostat) 0.4 MG SL tablet DISSOLVE 1 TABLET UNDER THE TONGUE NEEDED FOR CHEST PAIN- MAY REPEAT EVERY 5 MINUTES IF NEEDED ( MAX 3 DOSES.- IF NO RELIEF CALL 911) 04/28/20 25 Active liothyronine (Cytomel) 5 MCG tablet Take by mouth Daily Active tamsulosin (Flomax) 0.4 MG 24 hr capsule Take 0.4 mg by mouth Daily Active fluconazole (Diflucan) 100 MG tabletIndicatio ns:Chronic myringitis of left ear,Other infective chronic otitis externa of left ear 2 pills day one and then one pill daily for 13 days 15 tablet 05/09/20 25 Active Ciclopirox 1 % shampooIndicati ons:Other seborrheic dermatitis Lather on wet hair and slade, leave on 5 min, rinse 2-3 x week, 30 day supply 120 mL 11 12/05/19 25 025 Discontinued(Th erapy completed) ciclopirox (Loprox) 0.77 % creamIndication s:Other seborrheic dermatitis Apply thin layer to affected areas on the face once a day, 30 day supply 90 g 11 12/05/19 25 025 Discontinued(Th erapy completed) triamcinolone (Kenalog) 0.1 % creamIndication s:Stasis dermatitis of both legs Apply to affected areas on the legs bid when flared. Avoid the face, armpits, and groin 80 g 2 12/05/19 25 025 Discontinued( erapy completed) clotrimazole (Lotrimin) 1 % external solutionIndicat ions:Chronic myringitis of left ear,Other infective chronic otitis externa of left ear 4 drops to left ear 2 times daily for 10 days 10 mL 1 04/18/20 25 025 Discontinued( erapy completed) fluconazole (Diflucan) 100 MG tabletIndicatio ns:Chronic myringitis of left ear,Other infective chronic otitis externa of left ear 2 pills day one and then one pill daily for 13 days 15 tablet 04/18/20 25 025 Discontinued Active Problems Problem Noted Date Diagnosed Date Abnormal finding of diagnostic imaging Hesitancy of micturition 05/09/2025 History of total left hip replacement 05/09/2025 Hives 05/09/2025 Impacted cerumen 05/09/2025 Intestinal malabsorption 05/09/2025 Iron deficiency anemia 05/09/2025 Morbid obesity 05/09/2025 Obstructive sleep apnea 05/09/2025 Primary localized osteoarthrosis of shoulder reg ion 05/09/2025 Pulmonary hypertension 05/09/2025 Thyroid nodule 05/09/2025 Arteriosclerosis of coronary artery 11/08/2024 Multiple gouty tophi 05/30/2024 Nontoxic multinodular goiter 05/30/2024 Neck mass 05/30/2024 Cardiovascular stress test abnormal 09/04/2022 Chest pain 09/04/2022 Diverticular disease 09/04/2022 Gastroenteritis 09/04/2022 Hypertensive left ventricular hypertrophy 2022 Hypertriglyceridemia 09/04/2022 Hx of total shoulder replacement, left Dyslipidemia 12/06/2017 Essential hypertension 12/06/2017 Gastroesophageal reflux 12/06/2017 Encounters Date Type Department Care Team Description 05/28/2025 9:40 AM EDT Office Visit [facility] [address] [place] [phone] Rodri Ashford MD Chronic myringitis of left ear (Primary Dx) 05/28/2025 Bamboo flowsheet [facility] [address] [place] [address] Rodri Ashford MD 05/28/2025 Travel 05/09/2025 8:30 AM EDT Office Visit [facility] [address] [place] [phone] Rodri Ashford MD Chronic myringitis of left ear (Primary Dx); Other infective chronic otitis externa of left ear 05/09/2025 Bamboo flowsheet [facility] [address] [place] [phone] Rodri Ashford MD 05/09/2025 Travel 04/24/2025 9:40 AM EDT Office Visit [facility] [address] [place] [address] Rodri Ashford MD Chronic myringitis of left ear (Primary Dx); Other infective chronic otitis externa of left ear; Perforation of left tympanic membrane; Nontoxic multinodular goiter ; Lipoma of neck 04/24/2025 Bamboo flowsheet [facility] [address] [place] [address] Rodri Ashford MD 04/24/2025 Travel 04/23/2025 Telephone [facility] [address] [facility] [address] [place] [address] Rodri Ashford MD ear drops burn 04/23/2025 Clinisync Result Encounter [facility] External Department Unsolicited Rodri Ashford MD 04/18/2025 1:10 PM EDT Office Visit [facility] [address] [facility] [address] [place] [address] Rodri Ashford MD Chronic myringitis of left ear (Primary Dx); Other infective chronic otitis externa of left ear; Foreign body of left ear, initial encounter 04/18/2025 Bamboo flowsheet [facility] [address] [facility] [address] [place] [address] Rodri Ashford MD 04/18/2025 Travel from Last 3 Months Immunizations Immunization Administration Dates Next Due Influenza, High Dose Seasona l, Preservative Free 05/29/2020,05/31/2017 Influenza, Seasonal, Quadriv alent, Adjuvanted 05/03/2023 Influenza, Unspecified 06/15/2016 Influenza, trivalent, adjuvanted 06/21/2024,05/16,05/17/2020 Pneumococcal Conjugate PCV 20 05/03/2023 Pneumococcal Polysaccharide PPSV23 11/09/2016 RSV, recombinant, protein kent bunit RSVpreF, adjuvant reconstitu, 120mcg/0.5mL, PF (Arexvy) 05/18/2023 Zoster, Recombinant 07/30/2020,05/28/2020 Family History Medical History Relation Name Comments Melanoma Brother Cancer Father Heart failure Mother Relation Name Status Comments Brother Father Mother Social History Tobacco Use Types Packs/Day Years Used Date Smoking Tobacco: Former Cigarettes Passive Smoke Exposure: Past Smokeless Tobacco: Never Tobacco Cessation:Counseling Given: Not Answered Alcohol Use Standard Drinks/Week Comments Yes 1 [...] Mass Index 35.3 05/28/2025 9:22 AM EDT Plan of Treatment Upcoming Encounters Date Type Department Care Team (Late st Contact Info) Description 06/11/2025 1:00 PM EDT Office Visit [facility] [address] [place] [phone] Rodri Ashford MD [address] [facility] [address] [place], [place] [phone] 12/04/2025 9:35 AM EDT Office Visit [facility] [address] [place] [phone] Jacqui Mensah MD [address] [place], [place] [id number] 04/24/2026 8:00 AM EDT Office Visit [facility] [address] [facility] [address] [place] [address] Rodri Ashford MD [address] [facility] [address] [place] [address] Health Maintenance Due Date Last Done Comments CT Colonography 1950 Colonoscopy 1950 Colorectal Cancer Screening 1950 FIT-DNA 1950 FIT 1950 FOBT 1950 Sigmoidoscopy 1950 Influenza Vaccine (#1) 2025 4, 05/03/2023, 05/26/2021, Additional history exists Pneumococcal Vaccine: 65+ Years Completed 3, 11/09/2016 Procedures Procedure Name Priority Date/Time Associated Diagnosis Comments US THYROID 04/23/2025 9:35 AM EDT from Last 3 Months Results * US thyroid (04/23/2025 9:35 AM EDT) Anatomical Region Laterality Modality Head, Neck Ultrasound 04/23/2025 9:35 AM EDT Narrative 04/23/2025 9:38 [place] [address] Ultrasound Report Signed Patient: BRANDON MCCOLLUM MR#: [id number] : 1950 Acct:[id number] Age/Sex: 75 / M ADM Date: 04/23/25 Loc: US Attending Dr: Rodri Ashford M.D. Ordering Physician: Rodri Ashford M.D. Date of Service: 04/23/25 Procedure(s): US thyroid Accession Number(s): [id number] cc: Carlo Tran M.D.; Rodri Ashford M.D. [place] [id number] Patient Name: BRANDON MCCOLLUM MRN: [id number] date: 1950 Sex: M Assigned Patient Location: US Current Patient Location: US Accession/Order Number: [id number] Exam Date: 04/23/2025 08:47 Report Date: 04/23/2025 09:35 At the request of: RODRI ASHFORD MD Procedure: US thyroid THYROID ULTRASOUND COMPARISON: [...] Baldwin M.D. 04/23/2025 9:35 AM Dictation Location: [place] [address] Electronically authenticated by: [id number] Y Date: 04/23/2025 09:35 Dictated By: Tonie Baldwin M.D. Signed By: 04/23/2538 DD/ TD/TT: Horticultural Worker: Procedure Note Radiology, Radiologist, MD - 04/23/2025 [place] [address] Ultrasound Report Signed Patient: BRANDON MCCOLLUM EMR#: [id number] : 1950cct:[id number] Age/Sex: 75 / MADM Date: 04/23/25 Loc: US Attending Dr: Rodri Ashford M.D. Ordering Physician: Rodri Ashford M.D. Date of Service: 04/23/25 Procedure(s): US thyroid Accession Number(s): [id number] cc: Carlo Tran M.D.; Rodri Ashford M.D. [place] [id number] Patient Name: BRANDON MCCOLLUM MRN: [id number] date: 1950 Sex: M Assigned Patient Location: US Current Patient Location: US Accession/Order Number: [id number] Exam Date: 04/23/2025 08:47 Report Date: 04/23/2025 09:35 At the request of: RODRI ASHFORD MD Procedure: US thyroid THYROID ULTRASOUND COMPARISON: 10/30/2024 and 05/05/2024 CLINICAL DATA: Follow-up multinodular goiter The right thyroid lobe measures 4.4 x 1.5 x 1.8 cm. The left lobemeasures 4.1 x 1.3 x 1.6 cm. The isthmus measures 6 mm. Thyroid echotexture ismildly heterogeneous. At the superior pole the right, there is still ahypoechoic nodule measuring 4 x 5 x 5 mm. A nodule at the lower pole on the prior isnot seen today. On the left, additional small hypoechoic nodules are againseen. There are 2 hypoechoic nodules in close proximity the superior polemeasuring 7 x 4 x 4 mm and 4 x 3 x 4 mm . At the inferior pole, there is another hypoechoic nodule that measures 7 x 5 x 5 mm. US/US thyroid IMPRESSION: CONTINUED SUBCENTIMETER BILATERAL THYROID NODULES, GREATER ON THE LEFT. Impression dictated by: Tonie Baldwin M.D. 04/23/2025 9:35 AM Dictation Location: [place] [address] Electronically authenticated by: [id number] Y Date: 9:35 Dictated By: Tonie Baldwin M.D. Signed By:04/23/2538 DD/ 4 TD/TT: Horticultural Worker: us Rodri Ashford MD IMG US PROCEDURES Final Resul t from Last 3 Months Insurance [employer] Care Teams Principal Architectural Firm Relationship Specialty Start Date End Date Carlo Tran MD [address] [place] [address] PCP - General Family Medicine 04/18/25
--- OUTSIDE RECORDS SUMMARY | 2025-05-30 08:51 | XMS_ITS | Clinical Summary ---
Author Organization [facility] Address [address] [place], [place] [id number] Care Team Providers Care Hand Funnel Coater Name Role Phone Carlo Tran MD Primary Care Provider [phone] Allergies No known active allergies Medications ALYSSA 180 MG TAB one po bid 60 12 09/11/2005 Active ZANTAC 150 MG TAB Take one(1) tablet two(2) times daily. 60 12 09/11/2005 Active DOXEPIN 10 MG CAP one - three po qhs 90 3 09/11/2005 Active ALYSSA 180 MG TAB one po qd 30 12 10/09/2005 Active ALBUTEROL SULFATE 4 MG TAB one po bid 60 12 10/09/2005 Active desloratadine (CLARINEX) 5 mg ORAL TabIndications:I diopathic urticaria Take one(1) tablet by mouth two times a day 60 3 03/16/2007 Active Active Problems Problem Noted Date Diagnosed Date Idiopathic urticaria 03/16/2007 Social History Tobacco Use Types Packs/Day Years Used Date Smoking Tobacco: Never Assessed Sex and Gender Information Value Date Recorded Sex Assigned at Not on file Legal Sex Male 7:34 AM EST Gender Identity Not on file Sexual Orientation Not on file Last Filed Vital Signs Vital Sign Reading Time Taken Comments Blood Pressure 141/86 10/09/2005 12:45 PM EST Pulse 68 10/09/2005 12:45 PM EST Temperature 37 C (98.6 F) 10/09/2005 12:45 PM EST Respiratory Rate - - Oxygen Saturation - - Inhaled Oxygen Concentration - - Weight 102.1 kg (225 lb) 10/09/2005 12:45 PM EST Height 177.8 cm (5' 10 ) 10/09/2005 12:45 PM EST Body Mass Index 32.28 10/09/2005 12:45 PM EST Plan of Treatment Health Maintenance Due Date Last Done Comments Anxiety Screening 1969 Depression Screening 1969 Hepatitis C Screening 1969 DTaP,Tdap,Td Vaccine (1 - Tdap) [address] Colonography 1996 Cologuard (FIT-DNA) 1996 Colonoscopy 1996 Colorectal Cancer Screening 1996 Fecal Occult Blood 1996 Sigmoidoscopy 1996 Pneumococcal Vaccine: 50+ (1 of 1 - PCV) 2001 Shingrix Vaccine (1 of 2) 2001 Diabetes Screening 09/11/2008 09/11/2005 Advance Directive Discussion 08/16/2024 Covid-19 Vaccine (1 - 2024- season) 2025 Influenza Vaccine (#1) 2025 RSV Vaccine (1 - 1-dose 75+ series) 2026 Procedures Procedure Name Priority Date/Time Associated Diagnosis Comments COMPREHENSIVE METABOLIC PANEL Routine 09/11/2005 2:27 PM EST Idiopathic Urticaria from Last 3 Months or Most Recently Relevant to Health Maintenance Results * COMP METABOLIC PANEL (09/11/2005 2:27 PM EST) Protein, Total 7.1 6.0 - 8.4 g/dL [facility] Albumin 4.3 3.5 - 5.0 g/dL [facility] Calcium 9.5 8.5 - 10.5 mg/dL [facility] Bilirubin, Total 0.3 0.0 - 1.5 mg/dL [facility] Alkaline Phosphatase 66 40 - 150 U/L [facility] AST 20 7 - 40 U/L [facility] Glucose 84 65 - 100 mg/dL [facility] BUN 15 10 - 25 mg/dL [facility] Creatinine 1.0 0.7 - 1.4 mg/dL [facility] Sodium 139 135 - 146 mmol/L [facility] Potassium 4.4 3.5 - 5.0 mmol/L [facility] Chloride 103 98 - 110 mmol/L [facility] CO2 26 23 - 32 mmol/L [facility] Anion Gap 10 0 - 15 mmol/L [facility] ALT 18 5 - 50 U/L [facility] Blood specimen (specimen) BLOOD SPECIMEN / Unknown 09/11/2005 2:27 PM EST us Zulma Cardenas MD LABORATORY Final Resu lt [facility] [address] [place] [address] from Last 3 Months or Most Recently Relevant to Health Maintenance Insurance Care Teams Hand Funnel Coater Relationship Specialty Start Date End Date Carlo Tran MD PCP - General 08/24/05
--- OUTSIDE RECORDS SUMMARY | 2025-05-30 08:51 | XMS_ITS | Patient Health Record ---
Author Organization [facility] [place] Address [address] [place] [address] Care Team Providers Care Nutrition Intern Name Role Phone Juno Tran Primary Care Provider Allergies No Known Allergies Results Component Value Reference Range Notes XR lumbar spine min 4V Reviewed date:08/10/2024 06:09:51 PM Interpretation: Performing Lab: Notes/Report: Source Facility: [place] [address] XRay Report Signed Patient: KARLA MCCOLLUM MR#: [id number] : 1950 Acct:[id number] Age/Sex: 74 / M ADM Date: 08/10/24 Loc: RAD Attending Dr: Hoa Tran M.D. Ordering Physician: Hoa Tran M.D. Date of Service: 08/10/24 Procedure(s): XR lumbar spine min 4V Accession Number(s): [id number] cc: Hoa Tran M.D. [place] [address] Patient Name: KARLA MCCOLLUM MRN: [id number] date: 1950 Sex: M Assigned Patient Location: RAD Current Patient Location: RAD Accession/Order Number: [id number] Exam Date: 08/10/2024 09:30 Report Date: 08/10/2024 13:59 At the request of: HOA TRAN Procedure: XR lumbar spine min 4V EXAMINATION: XR lumbar spine min 4V HISTORY: Lumbar Pain since falling 2 weeks ago COMPARISON: CT lumbar spine 07/29/2024 FINDINGS: BONES: Minimally displaced fractures involving the right transverse process of L1, L2, and L3. Known right transverse process fracture of L4 is seen on CT study. Mild-moderate degenerative facet arthropathy L2-3 through L5-S1. Normal height and alignment of the lumbar vertebral bodies. DISC SPACES: Moderate narrowing L4-5. PARASPINOUS: Negative. No paraspinous abnormality is seen. OTHER: Atherosclerotic disease of the aorta. No appreciable aneurysm. XR/XR lumbar spine min 4V IMPRESSION: 1. Known subacute right transverse process fractures of L1, L2, L3, and L4, also seen on the CT lumbar spine 07/29/2024. No appreciable change allowing for differences in technique. 2. L4-5 moderate degenerative disc disease and multilevel mild-moderate degenerative facet arthropathy. Electronically authenticated by: ALEX ZARATE Date: 08/10/2024 13:59 Dictated By: Alex Zarate M.D. Signed By: 08/10/24 1401 DD/ 1359 TD/TT: Job Service Consultant: THYROID Reviewed date:04/23/2025 07:28:12 PM Interpretation: Performing Lab: Notes/Report: Source Facility: [place] [address] Ultrasound Report Signed Patient: KARLA MCCOLLUM MR#: [id number] : 1950 Acct:[id number] Age/Sex: 75 / M ADM Date: 04/23/25 Loc: US Attending Dr: Sadaf Malhotra M.D. Ordering Physician: Sadaf Malhotra M.D. Date of Service: 04/23/25 Procedure(s): US thyroid Accession Number(s): [id number] cc: Hoa Tran M.D.; Sadaf Malhotra M.D. [place] [address] Patient Name: KARLA MCCOLLUM MRN: [id number] date: 1950 Sex: M Assigned Patient Location: Current Patient Location: US Accession/Order Number: [id number] Exam Date: 04/23/2025 08:47 Report Date: 04/23/2025 [...] Baldwin M.D. 04/23/2025 9:35 AM Dictation Location: [place] [address] Electronically authenticated by: [id number] Y Date: 04/23/2025 09:35 Dictated By: Tonie Baldwin M.D. Signed By: 04/23/2538 DD/ TD/TT: Job Service Consultant: CBC AUTO DIFF Reviewed date:05/01/2025 09:07:50 AM Interpretation: Performing Lab: Notes/Report: [facility] , White Blood Count 7.9 4.0-11.0 10 3/uL Red Blood Count 4.05 4.70-6.10 10 6/uL Hemoglobin 12.0 14.0-18.0 g/dL Hematocrit 36.8 42.0-54.0 % Mean Corpuscular Volume 90.9 80.0-94.0 fL Mean Corpuscular Hemoglobin 29.6 25.9-34.0 pg Mean Corpuscular HGB Conc 32.6 29.9-35.2 g/dL Red Cell Distribution Width 13.4 11.0-15.0 % Platelet Count 220 150-450 10 3/uL Mean Platelet Volume 10.0 9.5-13.5 fL Neutrophils Percent Auto 54.5 43.0-75.0 % Lymphocytes Percent Auto 31.3 20.5-60.0 % Monocytes Percent Auto 7.8 1.7-12.0 % Eosinophils Percent Auto 5.1 0.9-7.0 % Basophils Percent Auto 0.8 0.2-2.0 % Immature Granulocytes Pct Auto 0.5 0.0-0.5 % Neutrophils Absolute Auto 4.3 1.4-6.5 10 3/uL Lymphocytes Absolute Auto 2.5 1.2-3.8 10 3/uL Monocytes Absolute Auto 0.6 0.3-0.8 10 3/uL Eosinophils Absolute Auto 0.4 0.0-0.7 10 3/uL Basophils Absolute Auto 0.1 0.0-0.1 10 3/uL Immature Granulocytes Abs Auto 0.04 0.00-0.03 10 3/uL Performing Lab: see note ML - [facility] FREE T3 Reviewed date:05/01/2025 09:13:47 AM Interpretation: Performing Lab: Notes/Report: [facility] , Free T3 1.67 2.18-3.98 pg/mL Performing Lab: see note ML - [facility] LB LIPID PROFILE Reviewed date:05/01/2025 09:13:47 AM Interpretation: Performing Lab: Notes/Report: [facility] , Triglycerides 194 <=150 mg/dL Cholesterol 162 <=200 mg/dL HDL Cholesterol 41 40-60 mg/dL > or =60 mg/dl - LOW CARDIOVASCULAR RISK <40 mg/dl - HIGH CARDIOVASCULAR RISK LDL Cholesterol Calculated 83.0 <100 mg/dl OPTIMAL 100-129 mg/dl NEAR OR ABOVE OPTIMAL 130-159 mg/dl BORDERLINE HIGH 160-189 mg/dl HIGH >190 mg/dl VERY HIGH VLDL CHOLESTEROL 38.8 Chol HDL Ratio 4.0 3.3 - 4.4 LOW RISK 4.4 - 7.1 AVERAGE RISK 7.1 - 11.0 MODERATE RISK >11.0 HIGH RISK Performing Lab: see note ML - [facility] LB PROF 14(COMP METB) Reviewed date:05/01/2025 09:13:47 AM Interpretation: Performing Lab: Notes/Report: [facility] , Sodium 141 136-145 mmol/L Potassium 4.5 3.5-5.1 mmol/L Chloride 106 98-107 mmol/L Carbon Dioxide 25.7 21.0-32.0 mmol/L Anion Gap 13.8 Glucose 115 74-106 mg/dL Blood Urea Nitrogen 22.0 7.0-18.0 mg/dL Creatinine 1.29 0.70-1.30 mg/dL Estimated GFR ( Aleja >60 >=60 mL/min/1.73m 2 Estimated GFR (Non- Julia 54 >=60 mL/min/1.73m 2 BUN Creatinine Ratio 17.1 Calcium 9.1 8.5-10.1 mg/dL Bilirubin Total 0.4 0.2-1.0 mg/dL Aspartate Amino Transferase 35 15-37 U/L Alanine Aminotransferase 33 16-63 U/L Alkaline Phosphatase 32 46-116 U/L Total Protein 7.5 6.4-8.2 g/dL Albumin Level 4.0 3.4-5.0 g/dL Globulin 3.5 Albumin Globulin Ratio 1.1 Performing Lab: see note ML - [facility] PSA SCREENING Reviewed date:05/01/2025 03:07:44 PM Interpretation: Performing Lab: Notes/Report: [facility] , Prostate Specific Antigen Scrn 1.12 <=4.00 ng/mL Performing Lab: see note ML - [facility] LB T4 Reviewed date:05/01/2025 09:13:47 AM Interpretation: Performing Lab: Notes/Report: [facility] , T4 Thyroxine 6.60 4.50-12.10 ug/dL Performing Lab: see note - [facility] LB TSH Reviewed date:05/01/2025 09:13:47 AM Interpretation: Performing Lab: Notes/Report: [facility] , Thyroid Stimulating Hormone 3.928 0.358-3.740 u IU/mL Performing Lab: see note ML - [facility] LB Occult Blood* Reviewed date:05/02/2025 12:33:44 PM Interpretation: Performing Lab: Notes/Report: [facility] , Occult Blood Positive Performing Lab: see note ML - [facility] US THYROID Reviewed date:10/30/2024 08:18:37 PM Interpretation: Performing Lab: Notes/Report: Source Facility: [place] [address] [place] [address] Ultrasound Report Signed Patient: KARLA MCCOLLUM MR#: [id number] : 1950 Acct:[id number] Age/Sex: 74 / M ADM Date: 10/30/24 Loc: US Attending Dr: Sadaf Malhotra M.D. Ordering Physician: Sadaf Malhotra M.D. Date of Service: 10/30/24 Procedure(s): US thyroid Accession Number(s): [id number] cc: Hoa Tran M.D.; Sadaf Malhotra M.D. [place] [address] Patient Name: KARLA MCCOLLUM MRN: [id number] date: 1950 Sex: M Assigned Patient Location: US Current Patient Location: US Accession/Order Number: [id number] Exam Date: 10/30/2024 10:53 Report Date: 10/30/2024 [...] in one year suggested. Impression dictated by: Cheli Alvarado Jr.OIra10/30/2024 10:57 AM Dictation Location: [place] [address] Electronically authenticated by: [id number] Y Date: 10/30/2024 10:57 Dictated By: Dylan Stoner M.D. Signed By: 10/30/24 1100 DD/ 1057 TD/TT: Job Service Consultant: CT lumbar spine wo con Reviewed date:07/30/2024 07:59:57 PM Interpretation: Performing Lab: Notes/Report: Source Facility: [place] [address] CT Scan Report Signed Patient: KARLA MCCOLLUM MR#: [id number] : 1950 Acct:[id number] Age/Sex: 74 / M ADM Date: 07/29/24 Loc: ER Attending Dr: Ordering Physician: Abdon Batista Date of Service: 07/29/24 Procedure(s): CT lumbar spine wo con Accession Number(s): [id number] cc: Hoa Tran M.D. [place] [address] Patient Name: KARLA MCCOLLUM MRN: [id number] date: 1950 Sex: M Assigned Patient Location: ER Current Patient Location: Accession/Order Number: [id number] Exam Date: 07/29/2024 13:25 Report Date: 07/29/2024 16:00 At the request of: ABDON BATISTA Procedure: CT lumbar spine wo con CT LUMBAR SPINE WITHOUT CONTRAST, 07/29/2024. HISTORY: Fall. Low back pain. COMPARISON: None. TECHNIQUE: Noncontrast axial CT images obtained through the lumbar spine. Reconstructions obtained in the sagittal and coronal planes. Dose reduction techniques were achieved by using automated exposure control and/or adjustment of mA and/or kV according to patient size and/or use of iterative reconstruction technique. FINDINGS: There are acute fractures of the right transverse processes at L1, L2, L3, and L4. The transverse processes on the left are intact. Facet joints are intact. Spinous processes are intact. Vertebral body heights are normal. No acute compression fracture. Alignment is normal. There is severe degenerative disc disease at L4-L5 with severe disc space narrowing. Disc bulge results in mild spinal canal stenosis at L4-L5 and L5-S1. No paraspinal soft tissue swelling or paraspinal hematoma. CT/CT lumbar spine wo con IMPRESSION: 1. There are acute transverse process fractures on the right side at L1, L2, L3, and L4. 2. No other lumbar spine fracture. No compression fracture. Alignment normal. Electronically authenticated by: NAVID THAPA Date: 07/29/2024 16:00 Dictated By: Navid Thapa M.D. Signed By: 07/29/24 1602 DD/ 1600 TD/TT: Job Service Consultant: CT chest wo con Reviewed date:07/30/2024 07:59:57 PM Interpretation: Performing Lab: Notes/Report: Source Facility: [place] [address] CT Scan Report Signed Patient: KARLA MCCOLLUM MR#: [id number] : 1950 Acct:[id number] Age/Sex: 74 / M ADM Date: 07/29/24 Loc: ER Attending Dr: Ordering Physician: Abdon Batista Date of Service: 07/29/24 Procedure(s): CT chest wo con Accession Number(s): [id number] cc: Hoa Tran M.D. [place] [address] Patient Name: KARLA MCCOLLUM MRN: [id number] date: 1950 Sex: M Assigned Patient Location: ER Current Patient Location: ER Accession/Order Number: [id number] Exam Date: 07/29/2024 13:25 Report Date: 07/29/2024 16:10 At the request of: ABDON BATISTA Procedure: CT chest wo con EXAMINATION: CT chest wo con, 07/29/2024 1:25 PM EST HISTORY: Fall right lower rib and flank pain. COMPARISON: CT angiogram of the chest with contrast 10/08/2020. TECHNIQUE: CT scan of the chest was performed without IV contrast. CT dose reduction technique was used, including Automated Exposure Control. FINDINGS: Small hepatic cysts are noted, largest within the lateral segment left hepatic lobe with transverse width of 2.7 cm. Upper abdominal contents demonstrate no acute abnormality. 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 Similar atherosclerotic change of the aorta is identified. Mid ascending thoracic segment has transverse diameter of 3.8 cm. Heart size is stable. CORONARY ARTERIES: There are calcifications associated with the coronary arteries again identified. These predominantly involve the right coronary artery segment. No new significantly enlarged adenopathy noted. No edema, failure, pneumonia, or pneumothorax otherwise noted. No new suspicious pulmonary mass or nodule noted. Multilevel cervical and thoracic spondylitic/facet arthritic changes are again identified. Arthritic changes about the left shoulder girdle are partially visualized. Significant arthritic changes at the right glenohumeral articulation with prior rotator cuff repair noted. Milder arthritic changes involving the sternoclavicular articulations are also noted. Displaced fracture deformity of the posterolateral right 11th rib, image #98 noted. Old healed fracture of anterior left third and fourth ribs with callus formation noted. Stable nonaggressive sclerotic focus involving the lateral left second rib. CT/CT chest wo con IMPRESSION: 1. Displaced fracture deformity of the posterolateral right 11th rib without pneumothorax. Old healed anterior left third and fourth rib fracture deformities are noted. 2. Heart size is stable with evidence of coronary artery calcifications. No acute cardiopulmonary process otherwise identified. 3. Benign-appearing hepatic cysts. Electronically authenticated by: MABEL MEJIA Date: 07/29/2024 16:10 Dictated By: Edwardo Reyes M.D. Signed By: 07/29/24 1613 DD/ 1610 TD/TT: Job Service Consultant: CBC AUTO DIFF Reviewed date:07/30/2024 07:59:57 PM Interpretation: Performing Lab: Notes/Report: [facility] , White Blood Count 11.0 4.0-11.0 10 3/uL Red Blood Count 4.01 4.70-6.10 10 6/uL Hemoglobin 11.9 14.0-18.0 g/dL Hematocrit 36.5 42.0-54.0 % Mean Corpuscular Volume 91.0 80.0-94.0 fL Mean Corpuscular Hemoglobin 29.7 25.9-34.0 pg Mean Corpuscular HGB Conc 32.6 29.9-35.2 g/dL Red Cell Distribution Width 13.1 11.0-15.0 % Platelet Count 227 150-450 10 3/uL Mean Platelet Volume 10.0 9.5-13.5 fL Neutrophils Percent Auto 73.4 43.0-75.0 % Lymphocytes Percent Auto 16.5 20.5-60.0 % Monocytes Percent Auto 7.3 1.7-12.0 % Eosinophils Percent Auto 1.9 0.9-7.0 % Basophils Percent Auto 0.4 0.2-2.0 % Immature Granulocytes Pct Auto 0.5 0.0-0.5 % Neutrophils Absolute Auto 8.1 1.4-6.5 10 3/uL Lymphocytes Absolute Auto 1.8 1.2-3.8 10 3/uL Monocytes Absolute Auto 0.8 0.3-0.8 10 3/uL Eosinophils Absolute Auto 0.2 0.0-0.7 10 3/uL Basophils Absolute Auto 0.0 0.0-0.1 10 3/uL Immature Granulocytes Abs Auto 0.05 0.00-0.03 10 3/uL Performing Lab: see note ML - [facility] LB GLYCOHEMOGLOBIN A1C Reviewed date:05/01/2025 09:07:50 AM Interpretation: Performing Lab: Notes/Report: [facility] , Glycohemoglobin A1C 5.6 4.5-6.2 % ADA RECOMMENDED LIMIT 4.0 - 6.0 ADA THERAPEUTIC TARGET < 7.0 ACTION SUGGESTED > 7.0 Estimated Average Glucose 114 Performing Lab: see note ML - [facility] LB UA DIP NONAUTO WO MICRO (810 02) - IN OFFICE Reviewed date:07/30/2024 07:59:57 PM Interpretation: Performing Lab: Notes/Report: COLOR yellow CLARITY clear GLUCOSE neg BILIRUBIN neg KETONE neg SPECIFIC GRAVITY 1.015 BLOOD neg PH 6.5 PROTEIN neg UROBILINOGEN neg NITRITE neg LEUKOCYTE ESTERASE neg Reason For Referral Reason apppintment in a mon - any chance could be seen sooner for ear Diagnosis 1 Cerumen impaction (H 61.20) Referral Organization [facility] Referring Provider First Name Juno Referring Provider Last Name Chelsea Referring Provider Speciality [facility] icine Referred Provider Sadaf Malhotra Referred Provider Specialty Otolaryngolo gy Referral Priority Routine Medications Medication SIG (Take, Route, Frequency, Duration) Notes Start Date End Date Status Meloxicam 15 MG 1 tablet Orally Once a day; Duration: 90 days 04/11/2025 Active Atorvastatin Calcium 40 MG 1 tablet Orally Once a day; Duration: 30 days 11/25/2022 Active Aspirin 81 81 MG 1 tablet Orally Once a day; Duration: 30 day(s) 11/25/2022 Not-Taking Irbesartan 150 MG 1 tablet Orally Once a day; Duration: 30 day(s) 11/25/2022 Active hydrOXYzine HCl 25 MG 1 Orally QID 01/14/2024 Active tiZANidine HCl 4 MG 1 po tid and can take 2 at hs Orally Once a day; Duration: 30 days 5/day max 07/31/2024 Active Flomax 0.4 MG 1 capsule Orally Onc e a day; Duration: 90 days 07/07/2024 Active Ranolazine ER 1000 MG TAKE 1 TABLET BY M [facility] TWICE DAILY Orally Twice a day; Duration: 90 days Active Ferrous Sulfate 325 (65 Fe) MG 1 tablet Orally twice a day; Duration: 30 days 05/02/2025 Active Omeprazole 40 MG take 1 capsule by mo uth once daily; Duration: 90 days Active Fenofibrate 145 mg TAKE 1 TABLET BY GABRIELA TH DAILY; Duration: 90 Active Nitroglycerin 0.4 MG as directed Sublingual 2022 Active Ezetimibe 10 MG take 1 tablet by gabriela th every morning Oral; Duration: 90 Days Active MiraLax 17 GM/SCOOP 1 scoop mixed with 8 ounces of fluid Orally Once a day; Duration: 30 days 07/31/2024 Active Cytomel 5 MCG 2 tablet on an empty stomach Orally Once a day; Duration: 30 days 05/02/2025 Active CPAP Supplies - Use Mask and Tubing with CPAP machine nightly DX G47.33; Duration: 90 days 04/19/2024 Active Metoprolol Succinate ER 100 MG 1 tablet Orally Once a day; Duration: 90 days Active CPAP Use CPAP daily- AUTO CPAP 8-20 CMH20- DX G47.33; Duration: 365 days Active CPAP - Use CPAP machine nightly DX G47.33; Duration: 365 days 04/19/2024 Active Isosorbide Mononitrate ER 120 MG 1 tablet in the morning Orally Once a day; Duration: 90 days 11/25/2022 Active Triamcinolone Acetonide 0.1 % 1 application Externally Twice a day; Duration: 30 07/01/2023 Active Immunizations Vaccine Route Administration Date Status Comme gigi Arexvy Unknown 05/18/2023 Administered Flu, Fluad (91168) 65 yrs + High Dose Seasonal () Unknown 05/31/2017 Administered Flu, Fluad (39723) 65 yrs + High Dose Seasonal () Unknown 05/29/2020 Administered Flu, Fluad (71064) 65 yrs and older, single-dose syringe () Unknown 05/17/2020 Administered Flu, Fluad (38993) 65 yrs and older, single-dose syringe () Unknown 05/26/2021 Administered Flu, Fluad (33621) 65 yrs and older, single-dose syringe () IM Intramuscular 06/21/2024 Administered Flu, Fluad (62289) 65 yrs+, single-dose syringe () Unknown 05/03/2023 Administered Pneumococcal (Pneumovax 23) Unknown 11/09/2016 Administered Pneumococcal (Prevnar 20) Unknown 05/03/2023 Administer ed SARS-COV-2 (COVID 19 Moderna - Booster 0.25mL) Unknown 09/23/2020 Administered SARS-COV-2 (COVID 19 Moderna - Booster 0.25mL) Unknown 10/21/2020 Administered SARS-COV-2 (COVID 19 Moderna - Booster 0.25mL) Unknown 06/09/2021 Administered SARS-COV-2 (COVID 19 Moderna - Booster 0.25mL) Unknown 12/17/2021 Administered Spikevax Moderna Syringe Pre-Filled 50 mcg/0.5 mL Unknown 05/18/2023 Administered Spikevax Moderna Syringe Pre-Filled 50 mcg/0.5 mL Unknown 08/11/2024 Administered ZOSTER (SHINGLES) VACCINE (HZV) Unknown 05/28/2020 Administered ZOSTER (SHINGLES) VACCINE (HZV) Unknown 07/30/2020 Administered Social History Tobacco Use: Social History Observation Description Date Details (start date - stop date) Former Smoker 08/16/1967 - 08/16/1992 Tobacco Use/Smoking Question Answer Notes Patient is a former smoker When did you start smoking? 08/16/1967 When did you stop smoking? 08/16/1992 Alcohol Screen (Audit-C) Question Answer Notes Did you have a drink contain ing alcohol in the past year? Yes How often did you have 6 or more drinks on one occasion in the past year? Never (0 point) How many drinks did you have on a typical day when you were drinking in the past year? 3 or 4 drinks (1 point) How often did you have a dri nk containing alcohol in the past year? Weekly (3 points) Points 4 Interpretation Positive AUDIT-C (Standard) Question Answer Notes Did you have a drink containing alcohol in the p ast year? No Points 0 Interpretation Negative Problems Problem Type SNOMED Code ICD Code Onset Dates Problem Status W/U Status Risk Notes Problem Morbid obesity (disorder) (229892533) Morbid (severe) obesity due to excess calories (E66.01) Active confirmed Problem Hypertensive heart disease without congestive heart failure (56756148) Hypertensive heart disease without heart failure (I11.9) Active confirmed Problem Atherosclerosis of aorta (34562491) Atherosclerosis of aorta (I70.0) Active confirmed Problem Idiopathic urticaria (82275449) Idiopathic urticaria (L50.1) Active confirmed Problem Hesitancy of micturition (4834239) Hesitancy of micturition (R39.11) Active confirmed Problem Gastroesophageal reflux disease (372299649) GERD (gastroesophageal reflux disease) (K21.9) Active confirmed Problem Dyslipidemia (931305814) Dyslipidemia (E78.5) Active confirmed Problem Sleep apnea (67704415) Sleep apnea (G47.30) Active confirmed Problem Obstructive sleep apnea (75634030) Obstructive sleep apnea (G47.33) Active confirmed Problem History of total replacement of left hip joint (5135141454258532) Status post total hip replacement, 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) Active confirmed Problem Hypertriglyceridemia (399893292) Hypertriglyceridemia (E78.1) Active confirmed Problem Thyroid nodule (425005191) Thyroid nodule (E04.1) Active confirmed Problem Impacted cerumen (55738821) Cerumen impaction (H61.20) Active confirmed Problem Mass of neck (325096747) Neck mass (R22.1) Active confirmed Problem Hives (820731136) Hives (L50.9) Active confirme d Problem Prostatitis (5691504) Prostatitis (N41.9) Active confirmed Problem Intestinal malabsorption (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) Active confirmed Problem Diverticular disease (012141946) Diverticular disease (K57.90) Active confirmed Problem Localized, primary osteoarthritis of the shoulder region (172769512) Osteoarthritis of left shoulder, unspecified osteoarthritis type (M19.012) Active confirmed Problem 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) Active confirmed Problem Prostatitis (9041069) Prostatiti s, unspecified prostatitis type (N41.9) Active confirmed Problem Coronary artery spas m (11368809) Coronary artery spasm (I20.1) Active confirmed Problem Iron deficiency anemia (65101427) Iron deficiency anemia, unspecified iron deficiency anemia type (D50.9) Active confirmed Problem Chest pain (26671109) Chest pain , unspecified type (R07.9) Active confirmed Problem Essential hypertension (20086423) BP (high blood pressure) (I10) Active confirmed Problem Hypercholesterolemia (16865604) Hypercholesterolemia (E78.00) Active confirmed Problem Essential hypertension (46887036) Hypertension, unspecified type (I10) Active confirmed Problem Pulmonary hypertension (73907851) Pulmonary hypertension, unspecified (I27.20) Active confirmed Problem Imaging result abnormal (169688371) Abnormal findings on diagnostic imaging of other specified body structures (R93.89) Active confirmed Problem Gastroesophageal reflux disease (171293274) Gastroesophageal reflux disease, unspecified whether esophagitis present (K21.9) Active confirmed Vital Signs Temperature 98.0 degrees Fahrenheit 10/09/2024 Blood pressure diastolic 78 mm Hg 05/09/2025 Height 70 in 05/09/2025 Blood pressure systolic 122 mm Hg 05/09/2025 Weight 247 lbs 05/09/2025 BMI 35.44 kg/m2 05/09/2025 Encounters Encounter Location Date Provider Diagnosis [facility] [address] [place] [address] 07/30/2024 Juno Tran [facility] [address] [place] [facility] [address] 08/04/2024 Juno Hoy Spine fracture 805.8 [facility] [address] [facility] [place] [address] 08/10/2024 Juno Hoy [facility] [address] [facility] [place] [address] 08/23/2024 Juno Hoy [facility] [address] [facility] [place] [address] 08/30/2024 Juno Hoy Chest pain, unspecif ied type R07.9 [facility] [address] [facility] [place] [address] 10/30/2024 Juno Hoy [facility] [address] [facility] [place] [address] 04/23/2025 Juno Hoy [facility] [address] [facility] [place] [address] 04/30/2025 Juno Hoy Chest pain, unspecif ied type R07.9 ; Hypertension, unspecified type I10 and Abnormal thyroid blood test R79.89 [facility] [address] [facility] [place] [address] 05/01/2025 Juno Hoy Acute otitis media, unspecified otitis media type H66.90 and Abnormal thyroid blood test R79.89 [facility] [address] [facility] [place] [address] 05/02/2025 Juno Hoy [facility] [address] [place] [facility] [place] [address] 05/09/2025 Juno Hoy Cerumen impaction H6 1.20 [facility] [address] [facility] [place] [address] 03/12/2025 Juno Hoy Acute otitis media, unspecified otitis media type H66.90 and Otalgia, unspecified laterality H92.09 [facility] [address] [facility] [place] [address] 06/21/2024 [place] Encounter for immuni zation Z23 ; Sleep apnea G47.30 and Hypertension, unspecified type I10 [address] [place] [address] 07/21/2024 [place] Atherosclerosis of a vashti I70.0 ; Morbid (severe) obesity due to excess calories E66.01 and Pulmonary hypertension, unspecified I27.[address] [address] 07/07/2024 [place] Hesitancy of micturi tion R39.11 and Prostatitis N41.[address] [address] 08/21/2024 [place] Morbid (severe) obes ity due to excess calories E66.01 ; Pulmonary hypertension, unspecified I27.20 and Hypertensive heart disease without heart failure I11.[address] [address] 07/31/2024 [place] Spine fracture 805.[address] [address] 10/09/2024 [place] Acute non-recurrent sinusitis, unspecified location J01.90 and Nasal congestion R09.[address] [address] 05/09/2025 [place] Encounter for Medica re annual wellness exam Z00.[address] [address] 04/11/2025 [place] Cerumen impaction H6 1.20 Assessments Encounter Date Diagnosis (ICD Code) Assessment Notes Treatment Notes Treatment Clinical Notes Section Notes 06/21/2024 Encounter for immunization (ICD-10 - Z23) 06/21/2024 Sleep apnea (ICD-10 - G47.30) 07/07/2024 Hesitancy of micturition (ICD-10 - R39.11) 07/07/2024 Prostatitis (ICD-10 - N41.9) 08/21/2024 Morbid (severe) obesity due to excess calories (ICD-10 - E66.01) 04/11/2025 Cerumen impaction (ICD-10 - H61.20) unable to flush completely - refer to Dr Buckley appointment but is a month away 05/09/2025 Encounter for Medicare annual wellness exam (ICD-10 - Z00.00) 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 A slums memory test was completed and the patient scored a 30/30. patient is up to date on his colonoscopy, immunizations and yearly labs. a total of 15 minutes was spent with the patient 08/04/2024 Spine fracture (ICD9-CM - 805.8) 08/30/2024 Chest pain, unspecified type (ICD-10 - R07.9) 04/30/2025 Chest pain, unspecified type (ICD-10 - R07.9) 04/30/2025 Hypertension, unspecified type (ICD-10 - I10) 07/21/2024 Atherosclerosis of aorta (ICD-10 - I70.0) 07/21/2024 Morbid (severe) obesity due to excess calories (ICD-10 - E66.01) 07/31/2024 Spine fracture (ICD9-CM - 805.8) 10/09/2024 Acute non-recurrent sinusitis, unspecified location (ICD-10 - J01.90) Rest and drink more liquids, especially water. You may use a humidifier or vaporizer to help keep the drainage moist. Kqsi-mup-atuavod Nasal Saline may help the stuffy and runny nose. Use Ibuprofen and or Tylenol as needed for fever, chills, body aches or pain. Children 5 years old should not be given nczf-xfc-dfgmytx cough and cold medications such as guaifenesin and dextromethorphan. If you're over age 5, you may try qaks-nar-gykhknv cold medications such as guaifenesin and dextromethorphan, or multi-symptom cold reliever such as Dayquil to help reduce the symptoms. Antibiotics have been prescribed. You should take these until completed and follow the directions. Antibiotics can sometimes cause upset stomach, and in rare cases, serious allergic reactions or serious gastrointestinal problems. If you start having severe abdominal pain, severe vomiting, or bloody diarrhea, you should be reevaluated by your physician or urgent care immediately. Follow up with your Primary Care Provider or return to clinic if symptoms do not improve within 3-5 days 03/12/2025 Acute otitis media, unspecified otitis media type (ICD-10 - H66.90) Bilatewr OE 05/01/2025 Acute otitis media, unspecified otitis media type (ICD-10 - H66.90) 05/09/2025 Cerumen impaction (ICD-10 - H61.20) 05/01/2025 Abnormal thyroid blood test (ICD-10 - R79.89) 03/12/2025 Otalgia, unspecified laterality (ICD-10 - H92.09) 10/09/2024 Nasal congestion (ICD-10 - R09.81) 07/21/2024 Pulmonary hypertension, unspecified (ICD-10 - I27.20) 04/30/2025 Abnormal thyroid blood test (ICD-10 - R79.89) 08/21/2024 Pulmonary hypertension, unspecified (ICD-10 - I27.20) 08/21/2024 Hypertensive heart disease without heart failure (ICD-10 - I11.9) 06/21/2024 Hypertension, unspecified type (ICD-10 - I10) Plan Of Treatment Pending Test Test Name Order Date CMP (COMPLETE METABOLIC PANEL) 4 HEMOGLOBIN A1C (GLYCO) 05/14/2023 HEMOGLOBIN A1C (GLYCO) 05/10/2024 INSULIN, TOTAL 05/10/2024 LIPID PANEL (CHOL/TRIG/HDL/LDL) 05/14/20 23 LIPID PANEL (CHOL/TRIG/HDL/LDL) 05/10/20 24 CBC WITH DIFF 05/10/2024 PSA, PROSTATE-SPECIFIC ANTIGEN 3 US Soft Tissue Neck/Head 11/29/2023 COMPREHENSIVE METABOLIC PROFILE WITH GFR 04/30/2025 OCCULT BLOOD, FECAL, IMMUNOASSAY 025 Sleep Study: Retitration BIPAP/CPAP 11/2023 CBC W/AUTO DIFF 04/30/2025 PSA, TOTAL 05/10/2024 XR LSPINE MIN 4 VIEWS 07/31/2024 THYROID PANEL (T4/TSH/FREE T3) 3 THYROID PANEL (T4/TSH/FREE T3) 4 THYROID PANEL (T4/TSH/FREE T3) 5 THYROID PANEL (T4/TSH/FREE T3) 3 THYROID PANEL (T4/TSH/FREE T3) 5 PSA, SCREENING 04/30/2025 Lipid Panel 04/30/2025 Insurance Providers Payer Name Payer Address Payer Phone Subscriber Number Group Number Insured Name Patient Relationship to Insured Coverage Start Date Coverage End Date [employer] [address] [place] [address] [id number] Karla Mccollum Self - patient is the insured [place] [address] [place] [address] [id number] Karla Mccollum Self - patient is the insured 6 [employer] MED[employer] ADV PLAN [address] [place] [address] [phone] [id number] Karla Mccollum Self - patient is the insured Medications Administered Medication Instructions Date of Administration Dosage Notes Kenalog-40 01/14/2024 120 mg 120 Medical (General) History Medical History History ICD Code Chest pain R07.9 Coronary artery spasm I20.1 Dyslipidemia E78.5 Diverticular disease K57.90 Benign essential hypertension I10 acute fractures of the right transverse processes at L1, L2, L3, and L4 Surgical History Surgery Date(Month/Year) Heart cath x2 Hernia repair left hip replacement Left shoulder replacement Hospitalization History Reason Date(Month/Year) chest pain 05/08
--- OUTSIDE RECORDS SUMMARY | 2025-05-30 08:51 | XMS_ITS | Encounter Summary ---
Author Organization [facility] Address [address] [place] [address] Care Team Providers Care E Merchant Name Role Phone Carlo Tran MD Primary Care Provider [phone] Carlo Tran MD Primary Care Provider [phone] Encounter Details Date Type Department Care Team (Late st Contact Info) Description 05/22/2024 Orders Only [facility] [address] [facility] [address] [place] [id number] Carlo Tran MD [address] [facility] [place] [address] Social History Tobacco Use Types Packs/Day Years Used Date Smoking Tobacco: Unknown Sex and Gender Information Value Date Recorded Sex Assigned at Not on file Legal Sex Male 7:13 PM EDT Gender Identity Not on file Sexual Orientation Not on file documented as of this encounter Plan of Treatment Upcoming Encounters Date Type Department Care Team (Late st Contact Info) Description 06/11/2025 1:00 PM EDT Office Visit [facility] [address] [facility] [address] [place] [address] Sadaf Ashford MD [address] [facility] [address] [place] [address] 12/04/2025 9:35 AM EDT Office Visit [facility] [address] [place] [address] Jacqui Mensah MD [address] [place] [address] 04/24/2026 8:00 AM EDT Office Visit [facility] [address] [facility] [address] [place] [address] Sadaf Ashford MD [address] [facility] [address] [place] [address] documented as of this encounter Procedures Procedure Name Priority Date/Time Associated Diagnosis Comments GENERAL PATHOLOGY Routine 05/15/2024 4:10 PM EDT documented in this encounter Results * GENERAL PATHOLOGY (05/15/2024 4:10 PM EDT) us aCrlo Tran MD [facility] Final Result documented in this encounter Visit Diagnoses Not on filedocumented in this encounter Care Teams E Merchant Relationship Specialty Start Date End Date Carlo Tran MD PCP - General Family Medicine 05/30/24 04/17/25 Carlo Tran MD [address] [place] [address] PCP - General Family Medicine 04/18/25 documented as of this encounter
--- OUTSIDE RECORDS SUMMARY | 2025-05-30 08:51 | XMS_ITS | Encounter Summary ---
Author Organization [facility] Address [address] [place] [address] Care Team Providers Care Industrial Cook Name Role Phone Carlo Tran MD Primary Care Provider [phone] Carlo Tran MD Primary Care Provider [phone] Encounter Details Date Type Department Care Team (Late st Contact Info) Description 05/10/2024 Orders Only [facility] [address] [facility] [address] [place] [phone] Carlo Tran MD [address] [facility] [place] [address] Social History Tobacco Use Types [...] Visit [facility] [address] [facility] [address] [place] [address] Sadaf Ashford MD [address] [facility] [address] [place] [address] 12/04/2025 9:35 AM EDT Office Visit [facility] [address] [place] [address] Jacqui Mensah MD [address] [place] [address] 04/24/2026 8:00 AM EDT Office Visit [facility] [address] [facility] [address] [place] [address] Sadaf Ashford MD [address] [facility] [address] [place] [address] documented as of this encounter Procedures Procedure Name Priority Date/Time Associated Diagnosis Comments US THYROID Routine 05/05/2024 2:47 PM EDT US THYROID Routine 12/15/2023 2:55 PM EDT GENERAL PATHOLOGY Routine 12/15/2023 2:52 PM EDT US THYROID Routine 12/03/2023 2:50 PM EDT documented in this encounter Results * US thyroid (05/05/2024 2:47 PM EDT) Anatomical Region Laterality Modality Head, Neck Ultrasound us Carlo Tran MD IMG US PROCEDURES Final Result * US thyroid (12/15/2023 2:55 PM EDT) Anatomical Region Laterality Modality Head, Neck Ultrasound us Carlo Tran MD IMG US PROCEDURES Final Result * GENERAL PATHOLOGY (12/15/2023 2:52 PM EDT) us Carlo Tran MD [facility] Final Result * US thyroid (12/03/2023 2:50 PM EDT) Anatomical Region Laterality Modality Head, Neck Ultrasound us Carlo Tran MD IMG US PROCEDURES Final Result documented in this encounter Visit Diagnoses Not on filedocumented in this encounter Care Teams Industrial Cook Relationship Specialty Start Date End Date Carlo Tran MD PCP - General Family Medicine 05/30/24 04/17/25 Carlo Tran MD [address] [place] [address] PCP - General Family Medicine 04/18/25 documented as of this encounter
--- OUTSIDE RECORDS SUMMARY | 2025-05-30 08:51 | XMS_ITS | Patient Health Record ---
Author Organization [facility] Address [address] [place], [place] [address] Care Team Providers Care Railroad Car Letterer Name Role Phone SHANE JOHNSON Unavailable [phone] Reason For Referral No Information Problems Problem Type SNOMED Code ICD Code Onset Dates Problem Status W/U Status Risk Notes Problem Otitis externa (2209160) Otitis externa (380.10) 09/20/2013 Problem resolved confirmed [facility] [id number] - Plan Of Treatment No Information Insurance Providers Payer Name Payer Address Payer Phone Subscriber Number Group Number Insured Name Patient Relationship to Insured Coverage Start Date Coverage End Date [employer] [address] [place] [address] [phone] [id number] KARLA CUENCA Self - patient is the insured 4
--- OUTSIDE RECORDS SUMMARY | 2025-05-30 08:53 | XMS_ITS | CCD ---
Author Organization [facility] Care Team Providers Care Service Parts Driver Name Role Phone HOA TRAN Primary Care Unavailable UNKNOWN, PROVIDER Referring Unavailable GRISELDA, HANI Admitting Unavailable GRISELDA HANI Attending Unavailable IA Procedure Practitioner Unavailab le UNKNOWN, PROVIDER Surgeon Unavailable SNEHAL ., DR CAMARA Primary Care Unavailable DIAB ., KWADWO Admitting Unavailable DIAB ., KWADWO Attending Unavailable Bismark Redd Consulting Unavailable DIAB ., KWADWO Consulting Unavailable MOUKARBROBER, DR QUINTEROS Admitting Unavailable MOUKAKELLY, DR QUINTEROS Attending Unavailable SNEHAL ., DR CAMARA Primary Care Unavailable MORAIN, DR QUINTEROS Consulting Unavailable SNEHAL ., DR CAMARA Admitting Unavailable SNEHAL ., DR CAMARA Attending Unavailable SNEHAL ., DR CAMARA Primary Care Unavailable SNEHAL ., DR CAMARA Consulting Unavailable Bismark Redd Consulting Unavailable MD Hoa Tran Attending Provider [phone] Hoa Tran Attending Unavailable Hoa Tran Admitting Unavailable Bismark Redd V Attending Unavailable Bismark Redd V Admitting Unavailable Hoa Tran MD Primary Care Provider [phone] NELI STERN Attending Unavailable NELI STERN Attending Unavailable Hoa Tran MD Primary Care Provider [phone] SADAF MALHOTRA Attending Unavailable JACQUI GUILLEN Attending Unavailable SADAF MALHOTRA Attending Unavailable SADAF MALHOTRA Attending Unavailable SADAF MALHOTRA Attending Unavailable SADAF MALHOTRA Attending Unavailable SADAF MALHOTRA Attending Unavailable HOA TRAN Referring Unavailable Hoa Tran MD Primary Care Provider Medications Current Medications Medication Drug Class(es) Dates Sig (Normalized) Sig (Original) amLODIPine 10 mg oral tablet (20 sources) Dihydropyridine Calcium Channel Mario take 1 tablet by mouth once daily amLODIPine (Norvasc) 10 MG tablet Take 10 mg by mouth Daily Active aspirin 81 mg delayed release oral tablet (20 sources) Platelet Aggregation Inhibitor, Nonsteroidal Anti-inflammatory Drug aspirin 81 MG EC tablet in the morning. Active atorvastatin 40 mg oral tablet (20 sources) HMG-CoA Reductase Inhibitor take 1 tablet by mouth in the morning atorvastatin (Lipitor) 40 MG tablet Take 40 mg by mouth in the morning. Active ciclopirox 10 mg/ml medicated shampoo (20 sources) Start: 12-04-2024 End: 05-09-2025 Ciclopirox 1 % shampoo Indications: Other seborrheic dermatitis Lather on wet hair and slade, leave on 5 min, rinse 2-3 x week, 30 day supply 120 mL 12/04/2024 05/09/2025 Discontinued (Therapy completed) Start: 12-04-2024 End: 05-09-2025 ciclopirox (Loprox) 0.77 % c ream Indications: Other seborrheic dermatitis Apply thin layer to affected areas on the face once a day, 30 day supply 90 g 12/04/2024 05/09/2025 Discontinued (Therapy completed) Start: 12-02-2023 End: 05-30-2024 ciclopirox (Loprox) 0.77 [...] 04/28/2025 Active clotrimazole 10 mg/ml topical solution (10 sources) Azole Antifungal Start: 04-18-2025 End: 05-09-2025 clotrimazole (Lotrimin) 1 % external solution Indications: Chronic myringitis of left ear , Other infective chronic otitis externa of left ear 4 drops to left ear 2 times daily for 10 days 10 mL 1 04/18/2025 05/09/2025 Discontinued (Therapy completed) ezetimibe 10 mg oral tablet (20 sources) Dietary Cholesterol Absorption Inhibitor Start: 08-17-2023 ezetimibe (Zetia) 10 MG tablet 08/17/2023 Active fenofibrate 145 mg oral tablet (20 sources) Peroxisome Proliferator Receptor alpha Agonist take 1 tablet by mouth once daily fenofibrate (Tricor) 145 MG tablet Take 145 mg by mouth Daily Active fluconazole 100 mg oral tablet (15 sources) Azole Antifungal Start: 04-18-2025 End: 05-09-2025 fluconazole (Diflucan) 100 M G tablet Indications: Chronic myringitis of left ear , Other infective chronic otitis externa of left ear 2 pills day one and then one pill daily for 13 days 15 tablet 05/09/2025 Active hydrocortisone 10 mg/ml / neomycin 3.5 mg/ml / polymyxin b 26846 unt/ml otic suspension (10 sources) Aminoglycoside Antibacterial, Polymyxin-class Antibacterial, Corticosteroid Start: 07-01-2023 End: 04-18-2025 bohcmuwe-kawfjbohj-uwjkwqlec i sone (Cortisporin) 3.5-72486-3 otic suspension every 8 (eight) hours 07/01/2023 04/18/2025 Discontinued (Therapy completed) irbesartan 150 mg oral tablet (20 sources) Angiotensin 2 Receptor Mario take 1 tablet by mouth once daily irbesartan (Avapro) 150 MG tablet Take 150 mg by mouth Daily Active 24 hr isosorbide mononitrate 120 mg extended release oral tablet (20 sources) Nitrate Vasodilator Start: 08-17-2023 isosorbide mononitrate ER (Imdur) 120 MG 24 hr tablet Take 120 mg by mouth 08/17/2023 Active liothyronine sodium 0.005 mg oral tablet (5 sources) l-Triiodothyronine take 1 tablet by mouth once daily liothyronine (Cytomel) 5 MCG tablet Take by mouth Daily Active meloxicam 15 mg oral tablet (5 sources) Nonsteroidal Anti-inflammatory Drug Start: 04-11-2025 meloxicam (Mobic) 15 MG tablet 1 (one) time each day at the same time 04/11/2025 Active 24 hr metoprolol succinate 100 mg extended release oral tablet (20 sources) beta-Adrenergic Mario take 1 tablet by mouth once daily metoprolol succinate XL (Toprol-XL) 100 MG 24 hr tablet Take 100 mg by mouth Daily Active nitroglycerin 0.4 mg sublingual tablet (5 sources) Nitrate Vasodilator Start: 04-28-2025 nitroglycerin (Nitrostat) 0. 4 MG SL tablet DISSOLVE 1 TABLET UNDER THE TONGUE NEEDED FOR CHEST PAIN- MAY REPEAT EVERY 5 MINUTES IF NEEDED ( MAX 3 DOSES.- IF NO RELIEF CALL 911) 04/28/2025 Active omeprazole 40 mg delayed release oral capsule (20 sources) Proton Pump Inhibitor omeprazole (PriLOSEC ) [address] capsule Active oxaprozin 600 mg oral tablet (3 sources) Nonsteroidal Anti-inflammatory Drug End: 05-30-2024 take 1 tablet by mouth every twenty-fo ur hours as needed oxaprozin (Daypro) 600 MG tablet 600 mg Daily as needed 05/30/2024 Discontinued 12 hr ranolazine 1000 mg extended release oral tablet (20 sources) Anti-anginal take 1 tablet by mouth every twelve hours in the morning ranolazine (Ranexa) 1000 MG 12 hr tablet Take 1 tablet by mouth in the morning and 1 tablet before bedtime. Active tamsulosin hydrochloride 0.4 mg oral capsule (5 sources) alpha-Adrenergic Mario take 1 capsule by mouth once daily tamsulosin (Flomax) 0.4 MG 24 hr capsule Take 0.4 mg by mouth Daily Active triamcinolone acetonide 1 mg/ml topical cream (16 sources) Corticosteroid Start: 12-04-2024 End: 05-09-2025 triamcinolone (Kenalog) 0.1 % cream Indications: Stasis dermatitis of both legs Apply to affected areas on the legs bid when flared. Avoid the face, armpits, and groin 80 g 2 12/04/2024 05/09/2025 Discontinued (Therapy completed) Start: 07-01-2023 End: 05-30-2024 triamcinolone (Kenalog) 0.1 % cream 1 Application every 12 (twelve) hours 07/01/2023 05/30/2024 Discontinued (Therapy completed) Problems Active Problems Problem Classification Problem Date Documented Da te Episodic/Chronic Allergic reactions (5 sources) Urticaria; Translations: [Urticaria, unspecified] Onset: 05-09-2025 05-09-2025 Episodic 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; 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] Onset: 11-20-2024 Chronic Coronary atherosclerosis and other heart disease (20 sources) Coronary atherosclerosis due to lipid rich plaque; Translations: [Angina pectoris with documented spasm] Onset: 12-18-2021 Chronic Deficiency and other anemia (5 sources) Iron deficiency anemia; Translations: [Iron deficiency anemia, unspecified] Onset: 05-09-2025 05-09-2025 Episodic Disorders of lipid metabolism (20 sources) Mixed hyperlipidemia; Translations: [Pure hypercholesterolemia, unspecified] Onset: 12-06-2017 Chronic Diverticulosis and diverticulitis (17 sources) Diverticular disease; Translations: [Diverticulosis of intestine, part unspecified, without perforation or abscess without bleeding] Onset: 09-04-2022 11-08-2024 Chronic Esophageal disorders (18 sources) Gastro-esophageal reflux disease without esophagitis; Translations: [Gastroesophageal reflux disease] Onset: 12-06-2017 11-08-2024 Chronic Essential hypertension (20 sources) Essential (primary) hypertension; Translations: [Essential hypertension] Onset: 12-06-2017 Chronic Genitourinary symptoms and ill-defined conditions (5 sources) Delay when starting to pass urine; Translations: [Hesitancy of micturition] Onset: 05-09-2025 05-09-2025 Episodic Gout and other crystal arthropathies (20 sources) Gouty tophus; 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, unspecified, with tophus (tophi)] Onset: 05-30-2024 05-30-2024 Chronic Hypertension with complications and secondary hypertension (17 sources) Hypertensive left ventricular hypertrophy; Translations: [Hypertensive heart disease without heart failure] Onset: 09-04-2022 11-08-2024 Chronic Osteoarthritis (5 sources) Localized, primary osteoarthritis of the shoulder region; Translations: [Primary osteoarthritis, unspecified shoulder] Onset: 05-09-2025 05-09-2025 Chronic Other aftercare (1 source) FDC (current) use of aspirin; Translations: [AIR PUMPER CURRENT USE OF ASPIRIN] Onset: 09-03-2022 Episodic Other aftercare (1 source) Other jail (current) drug therapy; Translations: [OTH AIR PUMPER CURRENT DRUG THERAPY] Onset: 09-03-2022 Episodic Other and unspecified benign neoplasm (2 sources) Melanocytic nevus of trunk; Translations: [Melanocytic nevi of trunk] 12-04-2024 Episodic Other and unspecified benign neoplasm (2 sources) Lipoma of skin and subcutaneous tissue of neck; Translations: [Benign lipomatous neoplasm of skin and subcutaneous tissue of head, face and neck] 04-24-2025 Episodic Other connective tissue disease (17 sources) History of total arthroplasty of left shoulder; Translations: [Presence of left artificial shoulder joint] Onset: 10-27-2021 11-08-2024 Chronic Other connective tissue disease (5 sources) History of total replacement of left hip joint; Translations: [Presence of left artificial hip joint] Onset: 05-09-2025 05-09-2025 Chronic Other diseases of veins and lymphatics (2 sources) Disorder of vein of lower extremity; Translations: [Venous insufficiency (chronic) (peripheral)] 12-04-2024 Episodic Other ear and sense organ disorders (8 sources) Chronic left myringitis; Translations: [Chronic myringitis, left ear] 04-18-2025 Chronic Other ear and sense organ disorders (6 sources) Chronic infective otitis externa; Translations: [Other infective otitis externa, left ear] 04-18-2025 Episodic Other ear and sense organ disorders (5 sources) Impacted cerumen; Translations: [Impacted cerumen, unspecified ear] Onset: 05-09-2025 05-09-2025 Episodic Other gastrointestinal disorders (5 sources) Intestinal malabsorption; Translations: [Intestinal malabsorption, unspecified] Onset: 05-09-2025 05-09-2025 Chronic Other inflammatory condition of skin (2 sources) Seborrheic dermatitis; Translations: [Other seborrheic dermatitis] 12-04-2024 Episodic Other injuries and conditions due to external causes (2 sources) Foreign body in left ear; Translations: [Foreign body in left ear, initial encounter] 04-18-2025 Episodic Other nutritional; endocrine; and metabolic disorders (5 sources) Morbid obesity; Translations: [Morbid (severe) obesity due to excess calories] Onset: 05-09-2025 05-09-2025 Chronic Other screening for suspected conditions (not mental disorders or infectious disease) (5 sources) Imaging result abnormal; Translations: [Abnormal findings on diagnostic imaging of other specified body structures] Onset: 05-09-2025 05-09-2025 Chronic Other skin disorders (2 sources) Actinic keratosis; Translations: [Actinic keratosis] 12-04-2024 Episodic Other skin disorders (2 sources) Lentiginosis; Translations: [Other melanin hyperpigmentation] 12-04-2024 Episodic Otitis media and related conditions (2 sources) Perforation of left tympanic membrane; Translations: [Unspecified perforation of tympanic membrane, left ear] 04-24-2025 Episodic Pulmonary heart disease (5 sources) Pulmonary hypertension; Translations: [Pulmonary hypertension, unspecified] Onset: 05-09-2025 05-09-2025 Chronic Residual codes; unclassified (1 source) Sleep apnea, unspecified; Translations: [SLEEP APNEA UNSPECIFIED] Onset: 09-03-2022 Chronic Residual codes; unclassified (5 sources) Obstructive sleep apnea syndrome; Translations: [Obstructive sleep apnea (adult) (pediatric)] Onset: 05-09-2025 05-09-2025 Chronic Residual codes; unclassified (1 source) Acquired absence of other specified parts of digestive tract; Translations: [ACQ ABSENCE OTH PART DIGESTV TRACT] Onset: 09-03-2022 Episodic Thyroid disorders (20 sources) Non-toxic multinodular goiter; Translations: [Nontoxic multinodular goiter] Onset: 05-30-2024 05-30-2024 Chronic Unclassified (1 source) CONTACT W/AND (SUSP) EXPOS COVID-19; Translations: [CONTACT W/AND (SUSP) EXPOS COVID-19] Onset: 09-03-2022 Past or Other Problems Problem Classification Problem Date Documented Date Episodic/Chronic Noninfectious gastroenteritis (17 sources) Gastroenteritis; Translations: [Noninfective gastroenteritis and colitis, unspecified] Onset: 09-04-2022 11-08-2024 Episodic Nonspecific chest pain (20 sources) Chest pain, unspecified; Translations: [Other chest pain] Onset: 09-02-2022 Episodic Other lower respiratory disease (4 sources) Dyspnea, unspecified; Translations: [DYSPNEA UNSPECIFIED] Onset: 12-17-2021 Episodic Other screening for suspected conditions (not mental disorders or infectious disease) (17 sources) Cardiovascular stress test abnormal; Translations: [Abnormal result of other cardiovascular function study] Onset: 09-04-2022 11-08-2024 Episodic Other skin disorders (20 sources) Mass of neck; Translations: [Localized swelling, mass and lump, neck] Onset: 05-30-2024 05-30-2024 Episodic Results Test Name Value Interpretation Reference Range [place] [address] Ultrasound Report Signed Patient: KARLA MCCOLLUM MR#: [id number] : 1950 Acct:[id number] Age/Sex: 75 / M ADM Date: 04/23/25 Loc: US Attending Dr: Sadaf Malhotra M.D. Ordering Physician: Sadaf Malhotra M.D. Date of Service: 04/23/25 Procedure(s): US thyroid Accession Number(s): [id number] cc: Hoa Tran M.D.; Sadaf Malhotra M.D. [place] [id number] Patient Name: KARLA MCCOLLUM MRN: [id number] date: 1950 Sex: M Assigned Patient Location: US Current Patient Location: US Accession/Order Number: [id number] Exam Date: 04/23/2025 08:47 Report Date: 04/23/2025 [...] Baldwin M.D. 04/23/2025 9:35 AM Dictation Location: [place] [address] Electronically authenticated by: [id number] Y Date: 04/23/2025 09:35 Dictated By: Tonie Baldwin M.D. Signed By: 04/23/2538 DD/ 4 TD/TT: Box Sealing Machine Operator: [facility] Radiology, Radiologist, - 04/23/2025 [place] [address] Ultrasound Report Signed Patient: KARLA MCCOLLUM MR#: [id number] : 1950 Acct:[id number] Age/Sex: 75 / M ADM Date: 04/23/25 Loc: US Attending Dr: Sadaf Malhotra M.D. Ordering Physician: Sadaf Malhotra M.D. Date of Service: 04/23/25 Procedure(s): US thyroid Accession Number(s): [id number] cc: Hoa Tran M.D.; Sadaf Malhotra M.D. The [place] [id number] Patient Name: KARLA MCCOLLUM MRN: [facility]:[id number] date: 1950 Sex: M Assigned Patient Location: US Current Patient Location: US Accession/Order Number: [id number] Exam Date: 04/23/2025 08:47 Report Date: 04/23/2025 [...] Baldwin M.D. 04/23/2025 9:35 AM Dictation Location: [employer] Electronically authenticated by: [id number] Y Date: 04/23/2025 09:35 Dictated By: Tonie Baldwin M.D. Signed By: 04/23/2538 DD/ TD/TT: Box Sealing Machine Operator: [facility] Radiology Study observation (narrative) [facility] US Thyroid glandOrdered By: Radiologist Radiology on 04-23-2025 [facility] Work Phone: No Panel InformationOrdered By: Nery Goncalves on 12-04-2024 [facility] Healthcare Office Visiton 11-20-2024 Follow-up visit [id number] Karla Mccollum 1950 M Date Provider Department Center 11/20/2024 NELI THRASHER [facility] Family History Problem Relation Age of Onset Hypertension Mother Cancer Father Family Status - Relation Status Age at Mother Father Sister Alive Brother Alive Level of Service:98397 [place] OFFICE/OUTPATIENT ESTABLISHED LOW MDM 20 MIN Normal [facility] US Thyroid glandon [address] [address] Ultrasound Report Signed Patient: KARLA MCCOLLUM MR#: [id number] : 1950 Acct:[id number] Age/Sex: 74 / M ADM Date: 10/30/24 Loc: US Attending Dr: Sadaf Malhotra M.D. Ordering Physician: Sadaf Malhotra M.D. Date of Service: 10/30/24 Procedure(s): US thyroid Accession Number(s): [id number] cc: Hoa Tran M.D.; Sadaf Malhotra M.D. The [place] [address] Patient Name: KARLA MCCOLLUM MRN: [facility]:[id number] date: 1950 Sex: M Assigned Patient Location: US Current Patient Location: US Accession/Order Number: [id number] Exam Date: 10/30/2024 10:53 Report Date: 10/30/2024 [...] Stoner Jr., D.O.10/30/2024 10:57 AM Dictation Location: [place] [address] Electronically authenticated by: [id number] Y Date: 10/30/2024 10:57 Dictated By: Dylan Stoner M.D. Signed By: 10/30/24 1100 DD/ 1057 TD/TT: Box Sealing Machine Operator: [facility] Radiology, Radiologist, - 10/30/2024 The [place] [id number] Ultrasound Report Signed Patient: KARLA MCCOLLUM MR#: [id number] : 1950 Acct:[id number] Age/Sex: 74 / M ADM Date: 10/30/24 Loc: US Attending Dr: Sadaf Malhotra M.D. Ordering Physician: Sadaf Malhotra M.D. Date of Service: 10/30/24 Procedure(s): US thyroid Accession Number(s): [id number] cc: Hoa Tran M.D.; Sadaf Malhotra M.D. [place] [id number] Patient Name: KARLA MCCOLLUM MRN: [id number] date: 1950 Sex: M Assigned Patient Location: US Current Patient Location: US Accession/Order Number: [id number] Exam Date: 10/30/2024 10:53 Report Date: 10/30/2024 [...] Cheli Alvarado Jr.OIra10/30/2024 10:57 AM Dictation Location: [place] [address] Electronically authenticated by: [id number] Y Date: 10/30/2024 10:57 Dictated By: Dylan Stoner M.D. Signed By: 10/30/24 1100 DD/ 1057 TD/TT: Box Sealing Machine Operator: [facility] Radiology Study observation (narrative) [facility] US Thyroid glandOrdered By: Radiologist Radiology on 10-30-2024 [facility] Work Phone: [place] 05-15-2024 L Specimen: Received: 05/17/24 Status: SOUT Req Num: [id number] Spec Type: Cytology Subm Dr: Hoa Tran MD Tissues: A FNA SLIDES NOPATH (RT THY) B FNA SLIDES NOPATH (LT THY) Procedures: Cyto Int and Re/2, PAPSTN/10 Age/ Patient Sex Location Account Attending Physician Karla Mccollum/Sandi LABELL [id number] Hoa Tran MD SPEC NUM: [id number] RECD: 05/17/24 STATUS: SOUT REQ NUM: [id number] SEAN: 05/15/24- SUBM DR: Hoa Tran MD ENTERED: 05/17/[address]: Lili,Lab Alex Zarate MD SPEC TYPE: Cytology DEPT: [facility] ENTERED BY: [id number] RECV BY: [id number] ORDERED: Cyto Int and Re/2, PAPSTN/10 ORDERED: Cyto Int and Re/2, PAPSTN/10 Pathological Diagnosis A. Right thyroid, inferior nodule, fine needle aspiration: - Unsatisfactory for evaluation due to scant cellularity. - Scant watery colloid, non-diagnostic ([place] Category:I). B. Left thyroid, inferior nodule, fine needle aspiration: - Unsatisfactory for evaluation due to scant cellularity. - Scant watery colloid and blood, non-diagnostic ([place] Category:I). Comment: Recommend repeat thyroid FNA as [...] stored at -20 microscopic examination. (YC/nh) Specimen: [id number] Received: 05/17/24 Status: EDWINA Spears Num: [id number] Spec Type: Cytology Subm Dr: Hoa Tran MD Tissues: A FNA SLIDES NOPATH (RT THY) B FNA SLIDES NOPATH (LT THY) Procedures: Cyto Int and Re/2, PAPSTN/10 Patient: Karla Mccollum Celestine [id number] (Continued) Specimen: [id number] Received: 05/17/24 (Continued) Gross Description (Continued) Signed (signature on file) Rajesh Ridley MD 05/18/24 1609 Specimen: [id number] Received: 05/17/24 Status: EDWINA Spears Num: [id number] Spec Type: Cytology Subm Dr: Hoa Tran MD Tissues: A FNA SLIDES NOPATH (RT THY) B FNA SLIDES NOPATH (LT THY) Procedures: Cyto Int and Re/2, PAPSTN/10 Patient: Karla Mccollum [id number] (Continued) Specimen: [id number] Received: 05/17/24 (Continued) Gross Description (Continued) B. (LT) Received fixed in Cytolyt is <1 ml colorless clear fluid for cytology and labeled as left thyroid nodule inferior. ThinPrep preparations are prepared for microscopic examination. Also received are 4 spray fixed smeared slides for pap and a Veracyte vial stored at -20 for microscopic examination. (YC/nh) Microscopic Description A B: Microscopic examination is performed. CPT Codes 12695 x2, 56695 x2 Specimen: [id number] Received: 05/17/24 Status: EDWINA Reefrain Num: [id number] Spec Type: Cytology Subm Dr: Hoa Tran MD Tissues: A FNA SLIDES NOPATH (RT THY) B FNA SLIDES NOPATH (LT THY) Procedures: Cyto Int and Re/2, PAPSTN/10 Patient: Karla Mccollum [id number] (Continued) Signed (signature on file) Rajesh Ridley MD 05/18/24 1609 Normal [facility] Office Visiton 12-22-2023 Follow-up visit [id number] Karla Mccollum 1950 M Date Provider Department Center 12/22/2023 NELI THRASHER Family History Problem Relation Age of Onset Hypertension Mother Family Status - Relation Status Age at Mother Level of Service:21339 [place] OFFICE/OUTPATIENT ESTABLISHED LOW MDM 20 MIN Normal [facility] Rudolph 12-15-2023 L Specimen: [id number] Received: 12/16/23 Status: EDWINA Spears Num: [id number] Spec Type: Cytology Subm Dr: Bismark Redd MD Tissues: A FNA SLIDES NOPATH (LT SUBMENT MASS) Procedures: HE/2, Cyto Int and Re, PAPSTN/7 Age/ Patient Sex Location Account Attending Physician Karla Mccollum 73/M LABELL [id number] Bismark Redd MD SPEC NUM: [id number] RECD: 12/16/23 STATUS: EDWINA SPEARS NUM: [id number] SEAN: 12/15/23- SUBM DR: Bismark Redd MD ENTERED: 12/16/[address] [facility] [address]: Lili,Lab Hoa Tran MD SPEC TYPE: Cytology DEPT: [facility] ENTERED BY: [id number] RECV BY: [id number] ORDERED: HE/2, Cyto Int and Re, PAPSTN/7 [...] pap are additionally received. (CC/nh) CPT Codes 44219 Specimen: [id number] Received: 12/16/23-140 Status: EDWINA Spears Num: [id number] Spec Type: Cytology Subm Dr: Bismark Redd MD Tissues: A FNA SLIDES NOPATH (LT SUBMENT MASS) Procedures: HE/2, Cyto Int and Re, PAPSTN/7 Patient: Karla Mccollum [id number] (Continued) Signed (signature on file) Bismark Quiñonez MD 12/17/23 1054 Normal [facility] LIPID PROFILEon 11-24-2022 CHOL-HDL RATIO NORM SEE BELOW Normal [facility] Comment on above: Result Comment: 3.3 - 4.4 LOW RISK 4.4 - 7.1 AVERAGE RISK 7.1 - 11.0 MODERATE RISK >11.0 HIGH RISK Performed By: #### L IPID #### [facility] [address] [place] [id number] Paige Tee Cholesterol [Mass/Vol] 151 mg/dL Normal <=200 Th [facility] Comment on above: Performed By: #### L IPID #### [facility] [address] [place], [place] [address] Dr[address] Paige Tee Cholesterol in HDL [Mass/Vol] 40 mg/dL Normal 40-[address] [facility] Comment on above: Performed By: #### L IPID #### [facility] [address] [place] [address] Dr. Paige Tee Cholesterol in LDL [Mass/Vol] 87.4 mg/dL Normal [facility] Comment on above: Performed By: #### L IPID #### [facility] [address] [place] [address] Dr. Paige Tee Cholesterol.total/Chol esterol in HDL [Mass ratio] 3.8 {ratio} Normal [facility] Comment on above: Performed By: #### L IPID #### [facility] [address] [place] [address] Dr. Paige Tee HDL NORMAL > or = 60 mg/dl - LOW CARDIOVASCULAR RISK <40 mg/dl - HIGH CARDIOVASCULAR RISK Normal [facility] Comment on above: Performed By: #### L IPID #### [facility] [address] [place] [address] Dr. Paige Tee LDL CALC NORMAL SEE BELOW Normal The [facility] Comment on above: Result Comment: <100 mg/dl OPTIMAL 100 - 129 mg/dl NEAR OR ABOVE OPTIMAL 130 - 159 mg/dl BORDERLINE HIGH 160 - 189 mg/dl HIGH >190 mg/dl VERY HIGH Performed By: #### L IPID #### [facility] [address] [place] [address] Dr. Paige Tee Triglyceride [Mass/Vol] 118 mg/dL Normal <=[address] [facility] Comment on above: Performed By: #### L IPID #### [facility] [address] [place] [address] Dr. Paige Tee VLDL CALC 23.6 mg/dL Normal [facility] Comment on above: Performed By: #### L IPID #### [facility] [address] [place] [address] Dr. Paige Tee CBC AUTO DIFFon 09-02-2022 BASO # 0.1 103/ul Normal 0.0-0.1 [facility] Comment on above: Performed By: #### C BC #### [facility] [address] [address] [address] Paige Tee Basophils/100 WBC (Bld) 0.6 % Normal 0.2-2.0 [facility] Comment on above: Performed By: #### C BC #### [facility] [address] [address] [address] Paige Tee EO # 0.4 103/ul Normal 0.0-0.[address] [facility] Comment on above: Performed By: #### C BC #### [facility] [address] [address] [address] Paige Tee Eosinophils/100 WBC (Bld) 4.0 % Normal 0.9-7.0 [facility] Comment on above: Performed By: #### C BC #### [facility] [address] [place] [address] Dr. Paige Tee Erythrocyte distribution width (RBC) [Ratio] 13.8 % Normal 11.0-15.0 [facility] Comment on above: Performed By: #### C BC #### [facility] [address] [place] [address] Dr. Paige Tee Hematocrit (Bld) [Volume fraction] 35.9 % Critically low 42.0-54.0 [facility] Comment on above: Performed By: #### C BC #### [facility] [address] [place] [address] Dr. Paige Tee Hemoglobin (Bld) [Mass/Vol] 11.9 g/dL Critically low 14.0-18.0 [facility] Comment on above: Performed By: #### C BC #### [facility] [address] [place] [address] Dr. Paige Tee IG # 0.04 10e3/ul Critically high 0.00-0.03 [facility] Comment on above: Performed By: #### C BC #### [facility] [address] [place] [address] Dr. Paige Tee IG % 0.4 % Normal 0.0-0.5 [facility] Comment on above: Performed By: #### C BC #### [facility] [address] [place] [address] Dr. Paige Tee LYMPH # 3.2 103/ul Normal 1.2-3.[address] [facility] Comment on above: Performed By: #### C BC #### [facility] [address] [place] [address] Dr. Paige Tee Lymphocytes/100 WBC (Bld) 30.0 % Normal 20.5-60.0 [facility] Comment on above: Performed By: #### C BC #### [facility] [address] [place] [address] Dr. Paige Tee MANUAL DIFF REQ NO Normal [facility] Comment on above: Performed By: #### C BC #### [facility] [address] [place] [address] Dr. Paige Tee MCH (RBC) [Entitic mass] 27.9 pg Normal 25.9-34.0 [facility] Comment on above: Performed By: #### C BC #### [facility] [address] [place] [address] Dr. Paige Tee MCHC (RBC) [Mass/Vol] 33.1 g/dL Normal 29.9-35.[address] [facility] Comment on above: Performed By: #### C BC #### [facility] [address] [place] [address] Dr. Paige Tee MCV (RBC) [Entitic vol] 84.3 fL Normal 80.0-94.0 [facility] Comment on above: Performed By: #### C BC #### [facility] [address] [place] [address] Dr. Paige Tee MONO # 0.8 103/ul Normal 0.3-0.[address] [facility] Comment on above: Performed By: #### C BC #### [facility] [address] [place] [address] Dr. Paige Tee Monocytes/100 WBC (Bld) 7.5 % Normal 1.7-12.0 [facility] Comment on above: Performed By: #### C BC #### [facility] [address] [place] [address] Dr. Paige Tee NEUT # 6.2 103/ul Normal 1.4-6.5 [facility] Comment on above: Performed By: #### C BC #### [facility] [address] [place] [address] Dr. Paige Tee Neutrophils/100 WBC (Bld) 57.5 % Normal 43.0-75.0 [facility] Comment on above: Performed By: #### C BC #### [facility] [address] [place] [address] Dr. Paige Tee Platelet mean volume (Bld) [Entitic vol] 9.5 fL Normal 9.5-13.5 [facility] Comment on above: Performed By: #### C BC #### [facility] [address] [place] [address] Dr. Paige Tee PLT 314 103/ul Normal 150-[address] [facility] Comment on above: Performed By: #### C BC #### [facility] [address] [place] [address] Dr. Paige Tee RBC 4.26 106/ul Critically low 4.70-6.10 [facility] Comment on above: Performed By: #### C BC #### [facility] [address] [place] [address] Dr. Paige Tee WBC 10.8 103/ul Normal 4.0-11.0 [facility] Comment on above: Performed By: #### C BC #### [facility] [address] [place] [address] Dr. Paige Tee [facility]on 08-16 SARS-CoV-2 (COVID-19) RNA UMER+probe Ql (Unsp spec) Not detected Normal NOT DETECTED [facility] Comment on above: Result Comment: When [...] for this test is supported by the [place] Head of Health and Human Service's declaration that [...] used). Performed By: #### C VDTBH #### [facility] [address] [place] [address] Dr. Paige Tee PROF CHEM 8 (BAS METB)on Anion gap [Moles/Vol] 13.7 mmol/L Normal [facility] Comment on above: Performed By: #### H ANJUPN, BMP #### [facility] [address] [place] [address] Dr. Paige Tee Calcium [Mass/Vol] 9.1 mg/dL Normal 8.5-10.[address] [facility] Comment on above: Performed By: #### H STROPN, BMP #### [facility] [address] [address] [address] Paige Tee Chloride [Moles/Vol] 104 mmol/L Normal 98-107 [facility] Comment on above: Performed By: #### H ANJUPN, BMP #### [facility] [address] [place] [address] Dr. Paige Tee CO2 [Moles/Vol] 24.4 mmol/L Normal 21.0-32.0 [facility] Comment on above: Performed By: #### H STROPN, BMP #### [facility] [address] [place] [address] Dr. Paige Tee Creatinine [Mass/Vol] 1.11 mg/dL Normal 0.70-1.30 [facility] Comment on above: Performed By: #### H STROPN, BMP #### [facility] [address] [place] [address] Dr. Paige Tee EGFR-AF BRUNEIAN >60 Normal >=60 [facility] Comment on above: Performed By: #### H STROPN, BMP #### [facility] [address] [address] [address] Paige Tee EGFR-NON AF BRUNEIAN >60 Normal >=60 [facility] Comment on above: Performed By: #### H STROPN, BMP #### [facility] [address] [address] [address] Paige Tee Glucose [Mass/Vol] 115 mg/dL Critically high 74-106 [facility] Comment on above: Performed By: #### H STROPN, BMP #### [facility] [address] [address] [address] Paige Tee Potassium [Moles/Vol] 4.1 mmol/L Normal 3.5-5.1 [facility] Comment on above: Performed By: #### H STROPN, BMP #### [facility] [address] [address] [address] Paige Tee Sodium [Moles/Vol] 138 mmol/L Normal 136-[address] [facility] Comment on above: Performed By: #### H STROPN, BMP #### [facility] [address] [address] [address] Paige Tee Urea nitrogen [Mass/Vol] 20.0 mg/dL Critically high 7.0-18.0 [facility] Comment on above: Performed By: #### H STROPN, BMP #### [facility] [address] [address] [address] Paige Tee Urea nitrogen/Creatinine [Mass ratio] 18.0 mg/mg Normal [facility] Comment on above: Performed By: #### H STROPN, BMP #### [facility] [address] [address] [address] Paige Tee TROPONIN, HIGH SENSITIVITYon 09-02-2022 HSTROP 4.1 pg/mL Normal 4.0-76.1 [facility] Comment on above: Result Comment: CUT- OFF POINTS HAVE BEEN ESTABLISHED BASED ON THE FOURTH UNIVERSAL DEFINITIONS OF MYOCARDIAL INFARCTION. THE UPPER REFERENCE LIMIT (URL) OF TROPONIN, DEFINED THE 99TH PERCENTILE OF cTnI DISTRIBUTION IN A REFERENCE POPULATION, HAS BEEN CONFIRMED THE DECISION THRESHOLD FOR OR DIAGNOSIS. Performed By: #### H STROPN #### [facility] [address] [place], [place] [address] Dr. Paige Tee HSTROP 4.5 pg/mL Normal 4.0-76.1 [facility] Comment on above: Result Comment: CUT- OFF POINTS HAVE BEEN ESTABLISHED BASED ON THE FOURTH UNIVERSAL DEFINITIONS OF MYOCARDIAL INFARCTION. THE UPPER REFERENCE LIMIT (URL) OF TROPONIN, DEFINED THE 99TH PERCENTILE OF cTnI DISTRIBUTION IN A REFERENCE POPULATION, HAS BEEN CONFIRMED THE DECISION THRESHOLD FOR OR DIAGNOSIS. Performed By: #### H STROPN, BMP #### [facility] [address] [place], [place] [address] Dr. Paige Tee XR CHEST 1 Von [...] by: BISMARK REDD Date: 2022-09-02 12:29 Normal [facility] NM STRESS/REST MULTIon 12-17 NM STRESS/REST MULTI Patient: KARLA MCCOLLUM Exam Date: 12/17/2021 : 1950 Gender:M Ordering : DR HOA TRAN . Admission #: [id number] Family : Order #: [id number] CLICK HERE TO VIEW EXAM RADIOLOGY REPORT [...] MD on 12/18/2021 at 09:[address] [facility] BASIC METABOLIC PANELon -2 Calcium [Mass/Vol] 8.9 mg/dL Normal 8.6-10.3 [facility] Comment on above: Order Comment: No: D o not add to previous draw Performed By: #### 0 0071 #### [facility] [address] [place] [address], [facility] Chloride [Moles/Vol] 105 mmol/L Normal 98-107 [facility] Comment on above: Order Comment: No: D o not add to previous draw Performed By: #### 0 0071 #### [facility] [address] [place] [address], [place] CO2 [Moles/Vol] 25 mmol/L Normal 21-31 [facility] Comment on above: Order Comment: No: D o not add to previous draw Performed By: #### 0 0071 #### [facility] [address] [place] [address], [place] Creatinine [Mass/Vol] 0.82 mg/dL Normal 0.70-1.30 [facility] Comment on above: Order Comment: No: D o not add to previous draw Performed By: #### 0 0071 #### [facility] [address] [place] [address], [place] GFR/1.73 sq M predicted among blacks MDRD (S/P/Bld) [Vol rate/Area] mL/min/{1.73_m2} Normal >60 [facility] Comment on above: Order Comment: No: D o not add to previous draw Performed By: #### 0 0071 #### [facility] [address] [place] [address], [place] GFR/1.73 sq M predicted among non-blacks MDRD (S/P/Bld) [Vol rate/Area] mL/min/{1.73_m2} Normal >60 [facility] Comment on above: Order Comment: No: D o not add to previous draw Performed By: #### 0 0071 #### [facility] [address] [place] [address], [place] Glucose [Mass/Vol] 104 mg/dL High 70-100 [facility] on above: Order Comment: No: D o not add to previous draw Performed By: #### 0 0071 #### [facility] [address] [place] [address], [place] Potassium [Moles/Vol] 3.6 mmol/L Normal 3.5-5.1 [facility] Comment on above: Order Comment: No: D o not add to previous draw Performed By: #### 0 0071 #### [facility] [address] [place] [address], [place] Sodium [Moles/Vol] 137 mmol/L Normal 136-145 [facility] Comment on above: Order Comment: No: D o not add to previous draw Performed By: #### 0 0071 #### [facility] [address] [place] [address], [place] Urea nitrogen [Mass/Vol] 13 mg/dL Normal 7-25 [facility] Comment on above: Order Comment: No: D o not add to previous draw Performed By: #### 0 0071 #### [facility] [address] [place] [address], [facility] CBC COMPLETE BLOOD COUNTon 0 10-12-2020 Erythrocyte distribution width (RBC) [Ratio] 13.1 % Normal 11.5-15.0 [facility] Comment on above: Order Comment: No: D o not add to previous draw Performed By: #### 3 5200 #### [facility] [address] [place] [address], [facility] Hematocrit (Bld) [Volume fraction] 36.6 % Low 39.0-50.0 [facility] Comment on above: Order Comment: No: D o not add to previous draw Performed By: #### 3 5200 #### [facility] [address] [place] [address], [facility] Hemoglobin (Bld) [Mass/Vol] 11.6 g/dL Low 13.0-17.0 [facility] Comment on above: Order Comment: No: D o not add to previous draw Performed By: #### 3 5200 #### [facility] [address] [place] [address], [facility] MCH (RBC) [Entitic mass] 28.1 pg Normal 27.0-33.0 [facility] Comment on above: Order Comment: No: D o not add to previous draw Performed By: #### 3 5200 #### [facility] [address] [place] [address], [facility] MCHC (RBC) [Mass/Vol] 31.7 g/dL Low 32.0-35.0 [facility] Comment on above: Order Comment: No: D o not add to previous draw Performed By: #### 3 5200 #### [facility] [address] [place] [address], [facility] MCV (RBC) [Entitic vol] 88.6 fL Normal 82.0-98.0 [facility] Comment on above: Order Comment: No: D o not add to previous draw Performed By: #### 3 5200 #### [facility] [address] [place] [address], [facility] Nucleated RBC/100 WBC (Bld) [Ratio] 0 % Normal 0-0 [facility] Comment on above: Order Comment: No: D o not add to previous draw Performed By: #### 3 5200 #### [facility] [address] [place] [address], [place] PLAT CNT 289 10*3/uL Normal 150-400 [facility] Comment on above: Order Comment: No: D o not add to previous draw Performed By: #### 3 5200 #### [facility] [address] [place] [address], [facility] RBC (Bld) [#/Vol] 4.13 10*6/uL Low 4.20-5.70 [facility] Comment on above: Order Comment: No: D o not add to previous draw Performed By: #### 3 5200 #### [facility] [address] [place] [address], [facility] WBC (Bld) [#/Vol] 10.27 10*3/uL Normal 4.00-10.60 [facility] Comment on above: Order Comment: No: D o not add to previous draw Performed By: #### 3 5200 #### [facility] [address] [place] [address], [facility] BASIC METABOLIC PANELon 02-2 Calcium [Mass/Vol] 9.2 mg/dL Normal 8.6-10.3 [facility] Comment on above: Order Comment: No: D o not add to previous draw Performed By: #### 0 0071 #### [facility] [address] [place] [id number], [place] Chloride [Moles/Vol] 106 mmol/L Normal 98-107 [facility] Comment on above: Order Comment: No: D o not add to previous draw Performed By: #### 0 0071 #### [facility] [address] [place] [address], [place] CO2 [Moles/Vol] 27 mmol/L Normal 21-31 [facility] Comment on above: Order Comment: No: D o not add to previous draw Performed By: #### 0 0071 #### [facility] [address] [place] [address], [place] Creatinine [Mass/Vol] 0.84 mg/dL Normal 0.70-1.30 [facility] Comment on above: Order Comment: No: D o not add to previous draw Performed By: #### 0 0071 #### [facility] [address] [place] [address], [place] GFR/1.73 sq M predicted among blacks MDRD (S/P/Bld) [Vol rate/Area] mL/min/{1.73_m2} Normal >60 [facility] Comment on above: Order Comment: No: D o not add to previous draw Performed By: #### 0 0071 #### [facility] [address] [place] [address], [place] GFR/1.73 sq M predicted among non-blacks MDRD (S/P/Bld) [Vol rate/Area] mL/min/{1.73_m2} Normal >60 [facility] Comment on above: Order Comment: No: D o not add to previous draw Performed By: #### 0 0071 #### [facility] [address] [place] [address], [place] Glucose [Mass/Vol] 101 mg/dL High 70-100 [facility] Comment on above: Order Comment: No: D o not add to previous draw Performed By: #### 0 0071 #### [facility] [address] [place] [id number], [facility] Potassium [Moles/Vol] 3.8 mmol/L Normal 3.5-5.1 [facility] Comment on above: Order Comment: No: D o not add to previous draw Performed By: #### 0 0071 #### [facility] [address] [place] [address], [place] Sodium [Moles/Vol] 139 mmol/L Normal 136-145 [facility] Comment on above: Order Comment: No: D o not add to previous draw Performed By: #### 0 0071 #### [facility] [address] [place] [id number], [facility] Urea nitrogen [Mass/Vol] 15 mg/dL Normal 7-25 [facility] Comment on above: Order Comment: No: D o not add to previous draw Performed By: #### 0 0071 #### [facility] [address] [place] [id number], [facility] CBC COMPLETE BLOOD COUNTon 0 - Erythrocyte distribution width (RBC) [Ratio] 12.9 % Normal 11.5-15.0 [facility] Comment on above: Order Comment: No: D o not add to previous draw Performed By: #### 3 0 #### [facility] [address] [place] [address], [facility] Hematocrit (Bld) [Volume fraction] 38.6 % Low 39.0-50.0 [facility] Comment on above: Order Comment: No: D o not add to previous draw Performed By: #### 3 5200 #### [facility] [address] [place] [id number], [facility] Hemoglobin (Bld) [Mass/Vol] 12.3 g/dL Low 13.0-17.0 [facility] Comment on above: Order Comment: No: D o not add to previous draw Performed By: #### 3 5200 #### [facility] [address] [place] [address], [facility] MCH (RBC) [Entitic mass] 28.5 pg Normal 27.0-33.0 [facility] Comment on above: Order Comment: No: D o not add to previous draw Performed By: #### 3 5200 #### [facility] [address] [place] [address], [facility] MCHC (RBC) [Mass/Vol] 31.9 g/dL Low 32.0-35.0 [facility] Comment on above: Order Comment: No: D o not add to previous draw Performed By: #### 3 5200 #### [facility] [address] [facility] [place] [address], [facility] MCV (RBC) [Entitic vol] 89.6 fL Normal 82.0-98.0 [facility] Comment on above: Order Comment: No: D o not add to previous draw Performed By: #### 3 5200 #### [facility] [address] [facility] [place] [address], [facility] Nucleated RBC/100 WBC (Bld) [Ratio] 0 % Normal 0-0 [facility] Comment on above: Order Comment: No: D o not add to previous draw Performed By: #### 3 5200 #### [facility] [address] [facility] [place] [id number], [facility] PLAT CNT 279 10*3/uL Normal 150-400 [facility] Comment on above: Order Comment: No: D o not add to previous draw Performed By: #### 3 5200 #### [facility] [address] [place] [id number], [facility] RBC (Bld) [#/Vol] 4.31 10*6/uL Normal 4.20-5.70 [facility] Comment on above: Order Comment: No: D o not add to previous draw Performed By: #### 3 5200 #### [facility] [address] WBC (Bld) [#/Vol] 10.25 10*3/uL Normal 4.00-10.60 [facility] Comment on above: Order Comment: No: D o not add to previous draw Performed By: #### 3 5200 #### [address] CTA HEART-CORONARY/ ARTERY B YPASS GRAFT WITH 3DPPon 10-11-2020 CTA HEART-CORONARY/ ARTERY BYPASS GRAFT WITH 3DPP [facility] Department of Radiology [address] [place] [address] Patient Name: KARLA MCCOLLUM : 1950 Sex: M Age: Race: White Pt. Location: [id number] Patient Status: I Ordered Date: 10/11/2020 8:30:00 [...] otherwise. Electronically signed: Asa Hill. 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 Division of Service Date: 10/10/2020 Cardiology Birthdate: 1950 Adult Cardiovascular Room #: [address]AB [id number] [place] [address] Cardiovascular Laboratory Report INDICATION: The patient is [...] signed informed consent. He was brought to laboratory operations coordinator in a fasting state. The right wrist area was prepped and draped in usual fashion. Modified Satnam's test was favorable on the right. Access in the right radial artery was obtained using micropuncture technique. A 6-Tristanian x 11 cm Hydrophilic sheath was advanced, [...] adequate location, this was upsized to a 6-Tristanian x 11 cm sheath. Bilateral selective coronary angiography was then performed using 6-Tristanian JL3.5 and JR4 diagnostic catheters. The 6-Tristanian JR4 diagnostic catheter was then used to [...] Stern M.D. Date Trans: 10/11/2020 06:09 A/lucia [id number] cc: Hoa Tran M.D. [address] [address] Neli Stern M.D. Heart Failure/ Transplant Mailstop 111[address] [facility] [id number] Normal [facility] BASIC METABOLIC PANELon 09-17 Calcium [Mass/Vol] 9.0 mg/dL Normal 8.6-10.3 [facility] Comment on above: Order Comment: No: D o not add to previous draw Performed By: #### 0 0071, [address] #### [facility] [address] [facility] [place] [address], [facility] Chloride [Moles/Vol] 103 mmol/L Normal 98-107 [facility] Comment on above: Order Comment: No: D o not add to previous draw Performed By: #### 0 0071, 843[address] #### [facility] [address] [facility] [place] [address], [facility] CO2 [Moles/Vol] 25 mmol/L Normal 21-31 [facility] Comment on above: Order Comment: No: D o not add to previous draw Performed By: #### 0 0071, 514[address] #### [facility] [address] [place] [address], [facility] Creatinine [Mass/Vol] 0.87 mg/dL Normal 0.70-1.30 [facility] Comment on above: Order Comment: No: D o not add to previous draw Performed By: #### 0 007, 23815 #### [facility] [address] [place] [address], [place] GFR/1.73 sq M predicted among blacks MDRD (S/P/Bld) [Vol rate/Area] mL/min/{1.73_m2} Normal >60 [facility] Comment on above: Order Comment: No: D o not add to previous draw Performed By: #### 0 70, [id number] #### [facility] [address] [place] [address], [place] GFR/1.73 sq M predicted among non-blacks MDRD (S/P/Bld) [Vol rate/Area] mL/min/{1.73_m2} Normal >60 [facility] Comment on above: Order Comment: No: D o not add to previous draw Performed By: #### 0 70, 35675 #### [facility] [address] [place] [address], [place] Glucose [Mass/Vol] 109 mg/dL High 70-100 [facility] Comment on above: Order Comment: No: D o not add to previous draw Performed By: #### 0 007, [id number] #### [facility] [address] [place] [address], [place] Potassium [Moles/Vol] 3.5 mmol/L Normal 3.5-5.1 The [facility] Comment on above: Order Comment: No: D o not add to previous draw Performed By: #### 0 007, 93386 #### [facility] [address] [place] [address], [place] Sodium [Moles/Vol] 137 mmol/L Normal 136-145 [facility] Comment on above: Order Comment: No: D o not add to previous draw Performed By: #### 0 0071, [id number] #### [facility] [address] [place] [address], [facility] Urea nitrogen [Mass/Vol] 14 mg/dL Normal 7-25 The [facility] Comment on above: Order Comment: No: D o not add to previous draw Performed By: #### 0 70, [id number] #### [facility] [address] [place] [address], [facility] CBC COMPLETE BLOOD COUNTon 0 10-10-2020 Erythrocyte distribution width (RBC) [Ratio] 13.2 % Normal 11.5-15.0 The [facility] Comment on above: Order Comment: No: D o not add to previous draw Performed By: #### 3 5200 #### [facility] [address] [place] [address], [facility] Hematocrit (Bld) [Volume fraction] 38.2 % Low 39.0-50.0 The [facility] Comment on above: Order Comment: No: D o not add to previous draw Performed By: #### 3 5200 #### [facility] [address] [place] [address], [facility] Hemoglobin (Bld) [Mass/Vol] 12.2 g/dL Low 13.0-17.0 The [facility] Comment on above: Order Comment: No: D o not add to previous draw Performed By: #### 3 5200 #### [facility] [address] [place] [address], [place] MCH (RBC) [Entitic mass] 28.6 pg Normal 27.0-33.0 The [facility] Comment on above: Order Comment: No: D o not add to previous draw Performed By: #### 3 5200 #### [facility] [address] [place] [address], [place] MCHC (RBC) [Mass/Vol] 31.9 g/dL Low 32.0-35.0 The [facility] Comment on above: Order Comment: No: D o not add to previous draw Performed By: #### 3 5200 #### [facility] [address] [place] [address], [facility] MCV (RBC) [Entitic vol] 89.5 fL Normal 82.0-98.0 The [facility] Comment on above: Order Comment: No: D o not add to previous draw Performed By: #### 3 5200 #### [facility] [address] [place] [id number], [facility] Nucleated RBC/100 WBC (Bld) [Ratio] 0 % Normal 0-0 The [facility] Comment on above: Order Comment: No: D o not add to previous draw Performed By: #### 3 5200 #### [facility] [address] [place] [id number], [facility] PLAT CNT 253 10*3/uL Normal 150-400 The [facility] Comment on above: Order Comment: No: D o not add to previous draw Performed By: #### 3 5200 #### [facility] [address] [place] [address], [facility] RBC (Bld) [#/Vol] 4.27 10*6/uL Normal 4.20-5.70 The [facility] Comment on above: Order Comment: No: D o not add to previous draw Performed By: #### 3 5200 #### [facility] [address] [place] [address], [place] WBC (Bld) [#/Vol] 10.57 10*3/uL Normal 4.00-10.60 The [facility] Comment on above: Order Comment: No: D o not add to previous draw Performed By: #### 3 5200 #### [facility] [address] [place] [id number], [facility] HEMOGLOBIN A1Con 02-25-2021 HbA1c (Bld) [Mass fraction] 6.0 % Normal 4.0-6.0 The [facility] Comment on above: Order Comment: No: D o not add to previous draw Performed By: #### 3 1791 #### [facility] [address] [place] [address], [facility] HbA1c (Bld) [Mass fraction] 126 mmol/L Normal The [facility] Comment on above: Order Comment: No: D o not add to previous draw Performed By: #### 3 1791 #### [facility] [address] [place] [address], [facility] LIPID PROFILEon 10-10-2020 Cholesterol [Mass/Vol] 144 mg/dL Normal 120-200 Th e [facility] Comment on above: Order Comment: No: D o not add to previous draw Result Comment: CHOL ESTEROL REFERENCE RANGE: 20 YEARS AND OLDER CARDIOVASCULAR RISK Less than 200 mg/dl Low Risk 200 to 239 mg/dl Borderline Risk 240 mg/dl and greater High Risk Performed By: #### 0 0071, 61129 #### [facility] [address] [place] [address], [facility] Cholesterol in HDL [Mass/Vol] 30 mg/dL Normal 23-92 The [facility] Comment on above: Order Comment: No: D o not add to previous draw Result Comment: Slig ht variation in normal range could be due to gender and/or age. HDL CHOLESTEROL REFERENCE RANGE: 20 years and older Cardiovascular Risk > or =60 mg/dL Desirable 40 TO 59 mg/dL Low Risk <40 mg/dL High Risk Performed By: #### 0 0071, 85834 #### [facility] [address] [place] [address], [facility] Cholesterol in LDL [Mass/Vol] 73 mg/dL Normal 0-130 The [facility] Comment on above: Order Comment: No: D o not add to previous draw Result Comment: LDL IS A CALCULATION LDL IS ONLY VALID IF THE TRIG IS LESS THAN 400. Performed By: #### 0 0071, 71333 #### [facility] [address] Cholesterol.total/Chol esterol in HDL [Mass ratio] 4.8 {ratio} High 0.0-4.5 The [facility] Comment on above: Order Comment: No: D o not add to previous draw Performed By: #### 0 0071, 41955 #### [facility] [address] NON-HDL CHOLESTEROL 114 mg/dL Normal The [facility] Comment on above: Order Comment: No: D o not add to previous draw Performed By: #### 0 0071, 84805 #### [facility] [address] Triglyceride [Mass/Vol] 203 mg/dL High 40-149 The [facility] Comment on above: Order Comment: No: D o not add to previous draw Result Comment: TRIG LYCERIDE REFERENCE RANGE: 20 YEARS AND OLDER CARDIOVASCULAR RISK LESS THAN 150 mg/dl LOW RISK 150 TO 199 mg/dl BORDERLINE RISK 200 mg/dl AND GREATER HIGH RISK Performed By: #### 0 0071, 54866 #### [facility] [address] VLDL CHOL 41 mg/dL High 0-40 The [facility] Comment on above: Order Comment: No: D o not add to previous draw Performed By: #### 0 0071, 09267 #### [facility] [address] PROTHROMBIN TIMEon 1 INR Coag (PPP) [Relative time] 1.00 {INR} Normal 0.91-1.16 The [facility] Comment on above: [...] By: #### 5 6101 #### [facility] [address] PT Coag (PPP) [Time] 13.2 s Normal 12.3-14.8 [facility] Comment on above: Order Comment: No: D o not add to previous draw Result Comment: ALL RESULTS MUST BE INTERPRETED WITH RESPECT TO BLOOD DRAWING ARTIFACT OR DILUTION ERROR OF ANTICOAGULANT AT THE TIME OF SAMPLING. Performed By: #### 5 6101 #### [facility] [address] [facility]. [address] BNP (B-TYPE NATRIURETIC PEPT FELISA)on 10-09-2020 Natriuretic peptide B (Bld) [Mass/Vol] 32 pg/mL Normal 0-100 The [facility] Comment on above: Order Comment: No: D o not add to previous draw Result Comment: Give n the appropriate clinical setting a BNP result of >100 pg/mL indicates congestive heart failure. Performed By: #### 8 5123 #### [facility] [address] [place] [address], [facility] TROPONIN-Ion 10-09-2020 Troponin I.cardiac [Mass/Vol] 0.00 ng/mL Normal 0.00-0.04 The [facility] Comment on above: Order Comment: No: D o not add to previous draw Result Comment: REFE RENCE RANGES: 0.00 - 0.14 ng/ml NEGATIVE 0.15 - 0.25 ng/ml INDETERMINATE > 0.25 ng/ml INDICATIVE OF AN M.I. Performed By: #### 3 5200 #### [facility] [address] [place] [address], [facility] Provider Letter FTon 09-20 Provider Letter [facility] [address], [address] [place] [address] Re: KARLA MCCOLLUM Date of : 1950 Thank you for your referral of Karla Mccollum who was seen on consultation on Sep 17, 2020, for three skin lesions of concern. I have enclosed my consultation note for your review, and I will be happy to follow Karla should he need further treatment. Sincerely, aKrla Dye MD General Surgery Normal [facility] Facesheeton 09-18-2020 Facesheet [id number] #[id number]:127 Normal [facility] Ambulatory Clinical Summaryo n 09-17-2020 Ambulatory Clinical Summary {[id number]}CD:[id number] Normal [facility] General Surgery Office/Clini c Noteon [...] Primary malignant neoplasm of lung: Father. Normal [facility] Comment on above: Result Comment: Elec tronically Signed By: SHEY WARD, Karla Leos\Date and Time Signed: 09/17/20 16:29 EST Physician Referralon 021 Physician Referral [id number] #[id number]:127 Normal [facility] Vital Signs Date Time Vital Sign Value Performing Clinician Faci lity 05-28-2025 09:22-0400 Body height 177.8 cm Sadaf Malhotra MD Work Phone: [facility] 05-28-2025 09:22-0400 Body mass index (BMI) [Ratio] 35.3 kg/m2 Sadaf Malhotra MD Work Phone: [facility] 05-28-2025 09:22-0400 Body weight 111.58 kg Sadaf Malhotra MD Work Phone: [facility] 05-28-2025 09:22-0400 Diastolic blood pressure 71 mm[Hg] Sadaf Malhotra MD Work Phone: [facility] 05-28-2025 09:22-0400 Heart rate 64 /min Sadaf Malhotra MD Work Phone: [facility] 05-28-2025 09:22-0400 Systolic blood pressure 148 mm[Hg] Sadaf Malhotra MD Work Phone: [facility] 05-09-2025 08:08-0400 Body height 177.8 cm Sadaf Malhotra MD Work Phone: [facility] 05-09-2025 08:08-0400 Body mass index (BMI) [Ratio] 35.3 kg/m2 Sadaf Malhotra MD Work Phone: [facility] 05-09-2025 08:08-0400 Body weight 111.58 kg Sadaf Malhotra MD Work Phone: [facility] 05-09-2025 08:08-0400 Diastolic blood pressure 66 mm[Hg] Sadaf Malhotra MD Work Phone: [facility] 05-09-2025 08:08-0400 Heart rate 65 /min Sadaf Malhotra MD Work Phone: [facility] 05-09-2025 08:08-0400 Systolic blood pressure 111 mm[Hg] Sadaf Malhotra MD Work Phone: [facility] 04-24-2025 09:32-0400 Body height 177.8 cm Sadaf Malhotra MD Work Phone: [facility] 04-24-2025 09:32-0400 Body mass index (BMI) [Ratio] 35.15 kg/m2 Sadaf Malhotra MD Work Phone: [facility] 04-24-2025 09:32-0400 Body weight 111.13 kg Sadaf Malhotra MD Work Phone: [facility] 04-24-2025 09:32-0400 Diastolic blood pressure 74 mm[Hg] Sadaf Malhotra MD Work Phone: [facility] 04-24-2025 09:32-0400 Heart rate 62 /min Sadaf Malhotra MD Work Phone: [facility] 04-24-2025 09:32-0400 Systolic blood pressure 137 mm[Hg] Sadaf Malhotra MD Work Phone: [facility] 04-18-2025 13:08-0400 Body height 177.8 cm Sadaf Malhotra MD Work Phone: [facility] 04-18-2025 13:08-0400 Body mass index (BMI) [Ratio] 35.15 kg/m2 Sadaf Malhotra MD Work Phone: [facility] 04-18-2025 13:08-0400 Body weight 111.13 kg Sadaf Malhotra MD Work Phone: [facility] 04-18-2025 13:08-0400 Diastolic blood pressure 60 mm[Hg] Sadaf Malhotra MD Work Phone: [facility] 04-18-2025 13:08-0400 Heart rate 62 /min Sadaf Malhotra MD Work Phone: [facility] 04-18-2025 13:08-0400 Systolic blood pressure 127 mm[Hg] Sadaf Malhotra MD Work Phone: [facility] 05-30-2024 10:29-0400 Body height 177.8 cm Sadaf Malhotra MD Work Phone: [facility] 05-30-2024 10:29-0400 Body mass index (BMI) [Ratio] 36.16 kg/m2 Sadaf Malhotra MD Work Phone: [facility] 05-30-2024 10:29-0400 Body weight 114.31 kg Sadaf Malhotra MD Work Phone: [facility] 05-30-2024 10:29-0400 Diastolic blood pressure 71 mm[Hg] Sadaf Malhotra MD Work Phone: [facility] 05-30-2024 10:29-0400 Systolic blood pressure 130 mm[Hg] Sadaf Malhotra MD Work Phone: [facility] Healthcare Encounters Encounter Date Encounter Type Care Provider Facility Start: 05-28-2025 End: 05-28-2025 Bamboo flowsheet Sadaf Malhotra MD Work Phone: [facility] Start: 05-28-2025 End: 05-28-2025 Bamboo flowsheet Sadaf Malhotra MD Work Phone: [facility] Start: 05-28-2025 End: 05-28-2025 Office outpatient visit 25 minutes Sadaf Malhotra MD Work Phone: [facility] Comment on above: Chronic myringitis o f left ear (Primary Dx) Start: 05-28-2025 End: 05-28-2025 ambulatory SADAF MALHOTRA Not Available Start: 05-09-2025 End: 05-09-2025 Bamboo preet Malhotra MD Work Phone: [facility] Start: 05-09-2025 End: 05-09-2025 Bamboo preet Malhotra MD Work Phone: [facility] Start: 05-09-2025 End: 05-09-2025 Office outpatient visit 25 minutes Sadaf Malhotra MD Work Phone: [facility] Comment on above: Chronic myringitis o f left ear (Primary Dx); Other infective chronic otitis externa of left ear Start: 05-09-2025 End: 05-09-2025 ambulatory SADAF MALHOTRA Not Available Start: 04-24-2025 End: 04-24-2025 Bamboo preet Malhotra MD Work Phone: [facility] Start: 04-24-2025 End: 04-24-2025 Bamboo flowsreyes Malhotra MD Work Phone: [facility] Start: 04-24-2025 End: 04-24-2025 Office outpatient visit 25 minutes Sadaf Malhotra MD Work Phone: [facility] Comment on above: Chronic myringitis o f left ear (Primary Dx); Other infective chronic otitis externa of left ear; Perforation of left tympanic membrane; Nontoxic multinodular goiter ; Lipoma of neck Start: 04-24-2025 End: 04-24-2025 ambulatory SADAF MALHOTRA Not Available Start: 04-23-2025 End: 04-23-2025 Clinisync Result Encounter Sadaf Malhotra MD Work Phone: [facility] External Department Unsolicited Start: 04-23-2025 End: 04-23-2025 Clinisync Result Encounter Sadaf Malhotra MD Work Phone: [facility] External Department Unsolicited Start: 04-23-2025 End: 04-23-2025 Telephone encounter Sadaf Malhotra MD Work Phone: [facility] Comment on above: ear drops burn Start: 04-18-2025 End: 04-18-2025 Bamboo flowsheet Sadaf Malhotra MD Work Phone: [facility] Start: 04-18-2025 End: 04-18-2025 Bamboo flowsheet Sadaf Malhotra MD Work Phone: [facility] [place] [facility] Start: 04-18-2025 End: 04-18-2025 Office outpatient visit 25 minutes Sadaf Malhotra MD Work Phone: [facility] [place] [facility] Comment on above: Chronic myringitis o f left ear (Primary Dx); Other infective chronic otitis externa of left ear; Foreign body of left ear, initial encounter Start: 04-18-2025 End: 04-18-2025 ambulatory SADAF Viera TIMMIS Not Available Start: 12-04-2024 End: 12-04-2024 Bamboo flowsheet Jacqui Guillen MD Work Phone: [facility] Start: 12-04-2024 End: 12-04-2024 Bamboo flowsreyes Guillen MD Work Phone: [facility] Start: 12-04-2024 End: 12-04-2024 Office outpatient visit 25 minutes Jacqui Guillen MD Work Phone: [facility] Comment on above: Other seborrheic ochoa matitis (Primary Dx); Melanocytic nevus of trunk; Actinic keratosis; Lentigines; Stasis dermatitis of both legs Start: 12-04-2024 End: 12-04-2024 ambulatory JACQUI GUILLEN Not Available Start: 11-20-2024 End: 11-20-2024 ambulatory [facility] Start: 11-08-2024 End: 11-08-2024 ambulatory SADAF H TIMMIS Not Available Start: 10-30-2024 End: 10-30-2024 Clinisync [...] Start: 05-15-2024 End: 05-15-2024 ambulatory Ho[facility] Tran [facility] Work Phone: Start: 05-15-2024 End: 05-15-2024 Departed Referred MD Hoa Tran Work Phone: [facility] Start: 12-22-2023 End: 12-22-2023 ambulatory NELI ALVARADOROBER [facility] Start: 12-15-2023 End: 12-15-2023 ambulatory Bismark Redd Facility:[facility] Start: 11-24-2022 End: 11-25-[address] NELI STERN Facility:[facility] Start: 09-02-2022 End: 09-02-[address] HOA TRAN . Facility:[facility] Start: 12-17-2021 End: 12-18-[address] HOA TRAN . Facility:[facility] Start: 10-09-2020 End: 10-12-2020 Evaluation and management of inpatient HOA TRAN Facility:[facility] Procedures Date Procedure Procedure Detail Performing Clinician Start: 04-23-2025 Us soft tissue head & neck real time imge lisa Malhotra MD Work Phone: Start: 12-04-2024 CRYOTHERAPY SKIN LESION Jacqui Guillen MD Work Phone: Start: 10-30-2024 Us soft tissue head & neck real time imcale Malhotra MD Work Phone: Start: 10-10-2020 INTRODUCE OTH THERAP SUBST IN CORONARY ART, PERC NELI V MOUKARBEL Start: 10-10-2020 PLAIN RADIOGRAPHY OF MULT COR ART USING L OSM CONTRAST NELI V MOUKARBEL Start: 10-10-2020 PLAIN RADIOGRAPHY OF R LOW EXTREM ART USING L OSM CONTRAST NELI V MOUKARBEL Plan of Treatment Date Care Activity Detail Author Start: 04-24-2026 End: 04-24-2026 Patient encounter procedure 04/24/2026 8:00 AM EDT Office Visit [facility] [address] [place] [address] Sadaf Malhotra MD [address] [place] [address] [facility] Start: 12-04-2025 End: 12-04-2025 Patient encounter procedure [facility] Start: 06-11-2025 End: 06-11-2025 Patient encounter procedure 06/11/2025 1:00 PM EDT Office Visit [facility] [address] [place] [address] Sadaf Malhotra MD [address] [place] [address] [facility] Start: 05-28-2025 End: 05-28-2025 Patient encounter procedure 05/28/2025 9:40 AM EDT Office Visit [facility] [facility] [address] [place] [id number] Sadaf Malhotra MD [address] [place] [address] Arrived [facility] Comment on above: Arrived Start: 05-09-2025 End: 05-09-2025 Patient encounter procedure [facility] Comment on above: Arrived Start: 04-24-2025 End: 04-24-2025 Patient encounter procedure [facility] [place] [facility] Comment on above: Arrived Start: 04-18-2025 End: 04-18-2025 Patient encounter procedure 04/18/2025 1:10 PM EDT Office Visit [facility] [place] [facility] [address] [place] [address] Sadaf Malhotra MD [address] [place] [address] Arrived [facility] [place] [facility] Comment on above: Arrived Start: 04-16-2025 Influenza vaccination [facility] Start: 12-04-2024 End: 12-04-2024 Patient encounter procedure [facility] Comment on above: Arrived Start: 11-08-2024 End: 11-08-2024 Patient encounter procedure 11/08/2024 8:30 AM EDT Office Visit [facility] [address] [place] [address] Sadaf Malhotra MD [address] [place] [address] [facility] Start: 05-30-2024 End: 05-30-2024 Patient encounter procedure 05/30/2024 10:30 AM EDT Office Visit [facility] [address] [place] [address] Sadaf Malhotra MD [address] [place] [address] Arrived [facility] Comment on above: Arrived Start: 04-16-2024 Influenza vaccination Influenza Vacc ine (#1) [facility] Start: 1950 Screening for malignant neoplasm of colon [facility] Immunizations Immunization Date Immunization Notes Care Provider Fa cility 06-21-2024 Seasonal trivalent influenza vaccine, adjuvanted, preservative free Sadaf Malhotra MD Work Phone: [facility] 06-21-2024 influenza virus vacc ine, unspecified formulation Sadaf Malhotra MD Work Phone: [facility] 05-18-2023 RSV, recombinant, pr otein subunit RSVpreF, adjuvant reconstitu, 120mcg/0.5mL, PF (Arexvy) Sadaf Malhotra MD Work Phone: [facility] 05-03-2023 Influenza, Seasonal, Quadrivalent, Adjuvanted Sadaf Malhotra MD Work Phone: [facility] 05-03-2023 Pneumococcal Conjuga te PCV 20 Sadaf Malhotra MD Work Phone: [facility] 05-03-2023 influenza virus vacc ine, unspecified formulation Sadaf Malhotra MD Work Phone: [facility] 05-26-2021 Seasonal trivalent influenza vaccine, adjuvanted, preservative free Sadaf Malhotra MD Work Phone: [facility] 07-30-2020 zoster vaccine recombinant Aylin Malhotra MD Work Phone: [facility] 05-29-2020 influenza, high dose seasonal, preservative-free Sadaf Malhotra MD Work Phone: [facility] 05-28-2020 zoster vaccine recombinant H sona Malhotra MD Work Phone: [facility] 05-17-2020 Seasonal trivalent influenza vaccine, adjuvanted, preservative free Sadaf Malohtra MD Work Phone: [facility] 05-31-2017 influenza, high dose seasonal, preservative-free Sadaf Malhotra MD Work Phone: [facility] 11-09-2016 pneumococcal polysaccharide vaccine, 23 valent Sadaf Malhotra MD Work Phone: [facility] 06-15-2016 influenza virus vacc ine, unspecified formulation Sadaf Malhotra MD Work Phone: [facility] Payers Date Payer Category Payer Medicare [id number] 2023 Self-pay 2023 Medicare (Managed Care) [id number] 2023 Medicare [id number] 1958 Medicare [id number] 1958 Unknown [id number] 1950 Unknown [id number] 1950 Unknown [id number] [id number] 1950 Unknown [id number] [id number] 1950 Unknown [id number] [id number] 1950 Unknown [id number] [id number] 1950 Unknown [id number] [id number] 1950 Unknown [id number] 2.16.840.1.589593.3.579.2.1259 1950 Unknown [id number] [id number] 1950 Unknown [id number] 2.16.840.1.056553.3.579.2.1259 1950 Unknown [id number] [id number] 1950 Unknown [id number] [id number] Unknown [employer] BC/BS [id number] Unknown Insurance No Card [id number] Unknown [id number] [id number] Unknown [id number] Social History Date Type Detail Facility Start: 07-14-2021 Tobacco smoking stat [facility] Never smoked tobacco (finding) [facility] Start: 1950 Sex Assigned At Male F [facility] Start: 12-02-2023 [facility] Start: 1950 Sex assigned at Not on file [facility] Start: 05-30-2024 End: 05-28-2025 Gender identity Not on file [facility] Start: 05-30-2024 [facility] History of tobacco use Current smoker [facility] History of tobacco use Cigarette Smoker [facility] History of tobacco use Passive smoker [facility] Start: 05-30-2024 Tobacco use and exposure Smokeless tobacco non-user [facility] Start: 05-30-2024 End: 05-28-2025 Alcoholic beverage intake Current drinker of alcohol (finding) [facility] Start: 05-30-2024 End: 05-28-2025 History of Social function [facility] Start: 10-28-2022 Sex [facility] Clinical Notes 12-17-2021 to 05-28-2025 Sadaf Malhotra MD - 05/28/2025 9:40 AM Kim Malhotra MD - 04/24/2025 9:40 AM EDTTelesalome Malhotra - 04/23/2025 2:13 PM Kim Malhotra MD - 05/09/2025 8:30 AM EDT Note Date & Type Note Facility 05-28-2025 History of Present illness Narrative Subjective Patient [...] debrided and med insufflated without complication. F/U [place] 2 weeks [1] Family History Problem Relation [...] prior to visit. documented in this encounter [facility] 04-24-2025 History of Present illness Narrative Subjective [...] armpits, and groin 80 g 2 [DISCONTINUED] ouzamvfn-lqojamrsf-rgziozegbuatsc (Cortisporin) 3.5-39999-4 otic suspension every 8 (eight) hours No [...] growth perceived. documented in this encounter [facility] 04-23-2025 Telephone encounter Note [place] pt/told pt to stop the drops and made appt for him to come into office 04/24/25. [facility] 04-23-2025 Miscellaneous Notes [place] pt/told pt to [...] his pillowcase. documented in this encounter [facility] 04-23-2025 History of Present illness Narrative Subjective Patient ID: Karla Mccollum is a 75 y.o. male who presents for Lipoma of neck (6 month ultrasound [facility] 04/23/25) Pt states he is still having trouble with discomfort and otorrhea Family History Problem Relation Name Age of [...] Ambulatory Problems No Additional Past Medical History Past Surgical History: Procedure Laterality Date REPLACEMENT [...] capsule Take 0.4 mg by mouth Daily [DISCONTINUED] ciclopirox (Loprox) 0.77 % cream Apply thin layer to affected areas on the face once a day, 30 day supply 90 g 11 [DISCONTINUED] Ciclopirox 1 % shampoo Lather on wet hair and slade, leave on 5 min, rinse 2-3 x week, 30 day supply 120 mL 11 [DISCONTINUED] clotrimazole (Lotrimin) 1 % external solution 4 drops to left ear 2 times daily for 10 days 10 mL 1 [DISCONTINUED] triamcinolone (Kenalog) 0.1 % cream Apply to affected areas on the legs bid when flared. Avoid the face, armpits, and groin 80 g 2 No current facility-administered medications on file prior to visit. Objective Last Recorded Vitals Vitals: 05/09/25 0808 BP: 111/66 Pulse: 65 ENT Physical Exam Ear Ear comments: LT - mildly inflamed EAC and TM. 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 Repeat course of diflucan. F/U in [place] to try direct application of med if infection persists. documented in this encounter [facility] 04-23-2025 Telephone encounter Note F/U tomorrow. Stop drops [facility] 04-23-2025 Telephone encounter Note Pt called in to say that the ear drop that was prescribed joseph. It is the clotrimazole 1%. He also noticed the last couple of mornings he has had a small amount of blood on his pillowcase. [facility] 04-18-2025 History of Present illness Narrative Images [...] armpits, and groin 80 g 2 [DISCONTINUED] tiwwsmxb-hdcrdiiwg-pjrrtrreiytaty (Cortisporin) 3.5-25806-0 otic suspension every 8 (eight) hours No [...] as diflucan. documented in this encounter [facility] 12-04-2024 History of Present illness Narrative Images [...] limited to risks of scarring, darker or ferris wheel attendant pigmentary changes, recurrence, incomplete removal and infection. [...] - Anterior, Right Lower Leg - Anterior [place] scaly plaques in areas of edema The [...] 1 year documented in this encounter [facility] 11-20-2024 Note [place] [facility] Subjective Karla Mccollum is a [...] mg daily. He was admitted to the [facility] on 05/06/2023 with chest pain and [...] Mood normal. Be (more content not included)... [facility] 05-30-2024 History of Present illness Narrative Subjective Patient ID: Karla Mccollum is a 74 y.o. male who presents for Neck Mass ( FNA 05/15/24 [facility]) Pt reports that in the course of being evaluated for a left submandibular mass he was found to also have thyroid nodules. US of the submental mass shows a 75s71t2ss mass. FNA c/w a lipoma. Thyroid US shows a [id number] RT TR5 nodule and a 47y53j7gj LT TR4 nodule. Path on each thyroid nodule was [place] 1. No known radiation exposure or family [...] tablet Take 100 mg by mouth Daily ovojkkvm-qjixvzsrn-etssomwqkcaaql (Cortisporin) 3.5-17398-8 otic suspension every 8 (eight) hours omeprazole [...] or removal documented in this encounter [facility] 12-22-2023 Note [place] [facility] Subjective Karla Mccollum is a [...] mg daily. He was admitted to the [facility] on 05/06/2023 with chest pain and [...] Disp: 90 tablet, (more content not included)... [facility] 12-17-2021 Note CARDIAC STRESS TEST Requesting [...] and reported in a separate dictation. [facility] Evaluation note No assessment inform ation available [facility] Work Phone: Evaluation note Diagnosis Nontoxic multinodular goiter (CMS/HCC)- Primary Nontoxic multinodular goiter Neck mass Swelling, mass, or lump in head and neck documented in this encounter [facility] Healthcare[facility]* Diagnosis Other seborrheic dermatitis- Primary Melanocytic nevus of trunk Benign neoplasm of skin of trunk, except scrotum Actinic keratosis Lentigines Stasis dermatitis of both legs documented in this encounter [facility] HealthcareEvaluation note* Diagnosis Chronic myringitis of left ear- Primary Other infective chronic otitis externa of left ear Foreign body of left ear, initial encounter documented in this encounter [facility] HealthcareEvaluation [facility]* Diagnosis Chronic myringitis of left ear- Primary Other infective chronic otitis externa of left ear Perforation of left tympanic membrane Nontoxic multinodular goiter Nontoxic multinodular goiter Lipoma of neck documented in this encounter [facility] note* Diagnosis Chronic myringitis of left ear- Primary Other infective chronic otitis externa of left ear [facility] Diagnosis Chronic myringitis of left ear- Primary documented in this encounter [facility] Summary [...] Records Found Hospital Course Note MR#: [id number] [facility] Pt. Name: Karla Mccollum Admitted: 10/09/2020 [...] section and content) DATE CREATED AUTHOR 09/22/2020 [facility] DATE CREATED AUTHOR AUTHOR'S ORGANIZ ATION 10/15/2020 [facility] DATE CREATED AUTHOR AUTHOR'S ORGANIZ ATION 11/30/2022 [facility] DATE CREATED AUTHOR AUTHOR'S ORGANIZ ATION 05/20/2024 [facility] DATE CREATED AUTHOR AUTHOR'S ORGANIZ ATION 11/21/2024 [facility] DATE CREATED AUTHOR AUTHOR'S ORGANIZ ATION 05/29/2025 [facility] Care Teams (unrecognized sec tion and content) Team Status: Inactive Member Role Status Dates Hoa Tran MD Attending Provider Active Sta rt: May 15, 2024 End: May 15, 2024 [employer] Relationship Specialty Start Date End Date Hoa Tran MD [address] [phone] PCP - General Family Medicine 05/30/24 [employer] Relationship Specialty Start Date End Date Hoa Tran MD [address] [phone] PCP - General Family Medicine 05/30/24 [employer] Driver Relationship Specialty Start Date End Date Hoa Tran MD [address] [facility], [phone] PCP - General Family Medicine 05/30/24 [employer] Driver Relationship Specialty Start Date End Date Hoa Tran MD [address] [facility], [phone] PCP - General Family Medicine 05/30/24 [employer] Driver Relationship Specialty Start Date End Date Hoa Tran MD [address] [phone] PCP - General Family Medicine 05/30/24 [employer] Driver Relationship Specialty Start Date End Date Hoa Tran MD [address] [facility], [phone] PCP - General Family Medicine 04/18/25 [employer] Driver Relationship Specialty Start Date End Date Hoa Tran MD [address] [place] [phone] PCP - General Family Medicine 04/18/25 [employer] Driver Relationship Specialty Start Date End Date Hoa Tran MD [address] [place] [facility] [place] [address] PCP - General Family Medicine 04/18/25 [employer] Driver Relationship Specialty Start Date End Date Hoa Tran MD [address] [place] [facility] [phone] PCP - General Family Medicine 04/18/25 [employer] Driver Relationship Specialty Start Date End Date Hoa Tran MD [address] [place] [facility] [phone] PCP - General Family Medicine 04/18/25 [employer] Driver Relationship Specialty Start Date End Date Hoa Tran MD [address] [place] [facility] [phone] PCP - General Family Medicine 04/18/25 [employer] Relationship Specialty Start Date End Date Hoa Tran MD [address] [place] [facility] [phone] PCP - General Family Medicine 04/18/25 [employer] Driver Relationship Specialty Start Date End Date Hoa Trna MD [address] [place] [facility] [place] [address] PCP - General Family Medicine 04/18/25 [employer] Driver Relationship Specialty Start Date End Date Hoa Tran MD [address] [place] [facility] [address] PCP - General Family Medicine 04/18/25 Goals (unrecognized section and content) Goals may be documented in a n alternate section Reason for Visit (unrecogniz ed section and content) Reason Comments Neck Mass FNA 05/15/24 [facility] Reason Comments Skin Check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
[2025-05-30 09:57] LABS: Free T3 2.57 pg/mL (2.18-3.98); Thyroid Stimulating Hormone 2.426 uIU/mL (0.358-3.740)
== END 2025-05-30 08:46 | disposition home or self-care (01) ==
LOC: LAB 08:48
PROVIDERS: PCP Family Medicine; Visit Provider Family Medicine
DX: R79.89 Other specified abnormal findings of blood chemistry (principal)
CPT/HCPCS: 36415; 84436; 84443; 84481

== ENCOUNTER 2025-06-06 10:21 | Outpatient (OUT) | payer MEDICARE, SELFPAY ==
--- OUTSIDE RECORDS SUMMARY | 2025-05-28 09:40 | XMS_ITS | Encounter Summary ---
Author Organization [facility] Address [address] [place] [address] Care Team Providers Care Architecture Department Chair Name Role Phone Carlo Tran MD Primary Care Provider [phone] Reason for Visit * ReasonCommentsEar ProblemLt ear follow up Encounter Details DateTypeDepartmentCare Team (Latest Contact Info)Leacfjdulnn79/13/2025 9:40 AM EDTOffice Visit [facility] [address] [place] [address] Sadaf Ashford MD [address] [place] [address] Chronic myringitis of left ear (Primary Dx) Social History Tobacco UseTypesPacks/DayYears UsedDateSmoking Tobacco: FormerCigarettesPassive Smoke Exposure: PastSmokeless Tobacco: NeverAlcohol UseStandard Drinks/Week CommentsYes1 (1 standard drink = 0.6 oz pure alcohol)Sex and Gender Information ValueDate RecordedSex Assigned at BirthNot on fileLegal JunPjdu1010/28/2022 7:13 PM EDTGender IdentityNot on fileSexual OrientationNot on filedocumented as of this encounter Last Filed Vital Signs Vital SignReadingTime TakenCommentsBlood Whgokyqo034/7110 9:22 AM EDT Qnxgn612105/28/2025 9:22 AM EDTTemperature--Respiratory Rate--Oxygen Saturation-- Inhaled Oxygen Concentration--Xivwvg258 kg (246 lb)05/28/2025 9:22 AM EDTHeight 177.8 cm (5' 10 )05/28/2025 9:22 AM EDTBody Mass Index35.310 9:22 AM EDT documented in this encounter [...] debrided and med insufflated without complication. F/U [place] 2 weeks [1] Family History Problem Relation Name Age of Onset Heart failure Mother Cancer Father Melanoma Brother [2] Past Surgical History: Procedure Laterality Date REPLACEMENT TOTAL HIP LATERAL POSITION 15 years ago SHOULDER ARTHROSCOPY Left 2019 [3] No Known Allergies [4] Current Outpatient [...] documented in this encounter Plan of Treatment DateTypeDepartmentCare Team (Latest Contact Info)Hovbsnppkbt38/27/2025 1:00 PM EDTOffice Visit [facility] [place] [facility] [address] [place] [address] Sadaf Ashford MD [address] [place] [address] 12/04/2025 9:35 AM EDTOffice Visit [facility] [facility] [address] [place] [address] Jacqui Mensah MD [address] [facility] [address] [place] [address] 04/24/2026 8:00 AM EDTOffice Visit [facility] [address] [facility] [address] [place] [address] Sadaf Ashford MD [address] [facility] [address] [place] [address] documented as of this encounter Visit Diagnoses Diagnosis Chronic myringitis of left ear- Primary documented in this encounter Care Teams Team MemberRelationshipSpecialtyStart DateEnd Date Carlo Tran MD [address] [facility] [place] [address] PCP - GeneralFamily Medicine04/18/25documented as of this encounter
--- OUTSIDE RECORDS SUMMARY | 2025-06-06 10:29 | XMS_ITS | CCD ---
Author Organization [facility] Care Team Providers Care Plastering Supervisor Name Role Phone HOA TRAN Primary Care Unavailable UNKNOWN, PROVIDER Referring Unavailable GRISELDA, HANI Admitting Unavailable GRISELDA HANI Attending Unavailable [place] Procedure Practitioner Unavailab le UNKNOWN, PROVIDER Surgeon Unavailable SNEAHL ., DR CAMARA Primary Care Unavailable DIAB [...] Unavailable Hoa Tran MD Primary Care Provider [phone] NELI STERN Attending Unavailable NELI STERN Attending Unavailable Hoa Tran MD Primary Care Provider [phone] SADAF MALHOTRA Attending Unavailable JACQUI GUILLEN Attending Unavailable SADAF MALHOTRA Attending Unavailable SADAF MALHOTRA Attending Unavailable SADAF MALHOTRA Attending Unavailable SADAF MALHOTRA Attending Unavailable SADAF MALHOTRA Attending Unavailable HOA TRAN Referring Unavailable Hoa Tran MD Primary Care Provider [phone] Medications Current Medications MedicationDrug Class(es)DatesSig (Normalized)Sig (Original)amLODIPine 10 mg oral tablet (20 sources)Dihydropyridine Calcium Channel Blockertake 1 tablet by mouth once dailyamLODIPine (Norvasc) 10 MG tablet Take 10 mg by mouth Daily Activeaspirin 81 mg delayed release oral tablet (20 sources)Platelet Aggregation Inhibitor, Nonsteroidal Anti-inflammatory Drug aspirin 81 MG EC tablet in the morning. Activeatorvastatin 40 mg oral tablet (20 sources)HMG-CoA Reductase Inhibitortake 1 tablet by mouth in the morning atorvastatin (Lipitor) 40 MG tablet Take 40 mg by mouth in the morning. Active ciclopirox 10 mg/ml medicated shampoo (20 sources)Start: 12-04-2024 End: 31-90-0982Drostqnzsa 1 % shampoo Indications: Other seborrheic dermatitis Lather on wet hair and slade, leaveon 5 min, rinse 2-3 x week, 30 day supply 120 mL 12/04/2024 05/09/2025 Discontinued (Therapy completed)Start: 12-04-2024 End: 58-90-2202aqwsbcepvt (Loprox) 0.77 % cream Indications: Other seborrheic dermatitis Apply thin layer to affected areas on the face once a day, 30 day supply 90 g 12/04/2024 05/09/2025 Discontinued (Therapy completed)Start: 12-02-2023 End: 57-29-2098drgjfvmxnc (Loprox) 0.77 % cream Indications: Other seborrheic dermatitis Apply thin layer to affected area once a day, 30 day supply 30 g 12/02/2023 05/30/2024 Discontinued (Therapy completed)ciprofloxacin 3 mg/ml / dexamethasone 1 mg/ml otic suspension (7 sources)Corticosteroid, Quinolone AntimicrobialStart: 04-18-2025 End: 72-27-4735hrknusdauyask-dexAMETHasone (CiproDEX) otic suspension Indications: Chronic myringitis of left ear , Other infective chronic otitis externa of left ear Administer 4 drops into the left ear in the morning and 4 drops before bedtime. Do all this for 10 days. 7.5 mL 04/18/2025 04/28/2025 Activeclotrimazole 10 mg/ml topical solution (10 sources)Azole AntifungalStart: 04-18-2025 End: 05-88-1621pvhlyjjvgbar (Lotrimin) 1 % external solution Indications: Chronic myringitis of left ear , Other infective chronic otitis externa of left ear 4 drops to left ear 2 times daily for 10 days 10 mL 1 04/18/2025 05/09/2025 Discontinued (Therapy completed)ezetimibe 10 mg oral tablet (20 sources)Dietary Cholesterol Absorption InhibitorStart: 44-53-8163rsmehcjyn (Zetia) 10 MG tablet 08/17/2023 Activefenofibrate 145 mg oral tablet (20 sources)Peroxisome Proliferator Receptor alpha Agonisttake 1 tablet by mouth once dailyfenofibrate (Tricor) 145 MG tablet Take 145 mg by mouth Daily Active fluconazole 100 mg oral tablet (15 sources)Azole AntifungalStart: 04-18-2025 End: 60-82-7531nqhlncdnigs (Diflucan) 100 MG tablet Indications: Chronic myringitis of left ear , Other infective chronic otitis externa of left ear 2 pills day one and then one pill daily for 13 days 15 tablet 05/09/2025 Active hydrocortisone 10 mg/ml / neomycin 3.5 mg/ml / polymyxin b 61199 unt/ml otic suspension (10 sources)Aminoglycoside Antibacterial, Polymyxin-class Antibacterial, CorticosteroidStart: 07-01-2023 End: 48-04-6277zcykikyc-polymyxin-hydrocortisone (Cortisporin) 3.5-20036-9 otic suspension every 8 (eight) hours 07/01/2023 04/18/2025 Discontinued (Therapy completed)irbesartan 150 mg oral tablet (20 sources)Angiotensin 2 Receptor Blockertake 1 tablet by mouth once daily irbesartan (Avapro) 150 MG tablet Take 150 mg by mouth Daily Lzmjqw09 hr isosorbide mononitrate 120 mg extended release oral tablet (20 sources)Nitrate VasodilatorStart: 97-71-7823henckkaffi mononitrate ER (Imdur) 120 MG 24 hr tablet Take 120 mg by mouth 08/17/2023 Activeliothyronine sodium 0.005 mg oral tablet (5 sources)l-Triiodothyroninetake 1 tablet by mouth once dailyliothyronine (Cytomel) 5 MCG tablet Take by mouth Daily Activemeloxicam 15 mg oral tablet (5 sources)Nonsteroidal Anti-inflammatory DrugStart: 54-14-8698nmtrtuxzn (Mobic) 15 MG tablet 1 (one) time each day at the same time 04/11/2025 Ocqgba52 hr metoprolol succinate 100 mg extended release oral tablet (20 sources)beta-Adrenergic Blockertake 1 tablet by mouth once dailymetoprolol succinate XL (Toprol-XL) 100 MG 24 hr tablet Take 100 mg by mouth Daily Active nitroglycerin 0.4 mg sublingual tablet (5 sources)Nitrate VasodilatorStart: 81-29-3692hjesnterccedx (Nitrostat) 0.4 MG SL tablet DISSOLVE 1 TABLET UNDER THE TONGUE NEEDED FOR CHEST PAIN- MAY REPEAT EVERY 5 MINUTES IF NEEDED ( MAX 3 DOSES.- IF NO RELIEF CALL 911) 04/28/2025 Activeomeprazole 40 mg delayed release oral capsule (20 sources)Proton Pump Inhibitoromeprazole (PriLOSEC) [address] capsule Active oxaprozin 600 mg oral tablet (3 sources)Nonsteroidal Anti-inflammatory Drug End: 49-45-2545evvp 1 tablet by mouth every twenty-four hours as neededoxaprozin (Daypro) 600 MG tablet 600 mg Daily as needed 05/30/2024 Sbhyfomvvmfq07 hr ranolazine 1000 mg extended release oral tablet (20 sources)Anti-anginaltake 1 tablet by mouth every twelve hours in the morning ranolazine (Ranexa) 1000 MG 12 hr tablet Take 1 tablet by mouth in the morning and 1 tablet before bedtime. Activetamsulosin hydrochloride 0.4 mg oral capsule (5 sources)alpha-Adrenergic Blockertake 1 capsule by mouth once dailytamsulosin (Flomax) 0.4 MG 24 hr capsule Take 0.4 mg by mouth Daily Activetriamcinolone acetonide 1 mg/ml topical cream (16 sources)CorticosteroidStart: 12-04-2024 End: 58-50-7571zkzthzioxtwmh (Kenalog) 0.1 % cream Indications: Stasis dermatitis of both legs Apply to affected areas on the legs bid when flared. Avoid the face, armpits, and groin 80 g 2 12/04/2024 05/09/2025 Discontinued (Therapy completed)Start: 07-01-2023 End: 78-86-4492buixjgqikpafs (Kenalog) 0.1 % cream 1 Application every 12 (twelve) hours 07/01/2023 05/30/2024 Discontinued (Therapy completed) Problems Active Problems Problem ClassificationProblemDateDocumented DateEpisodic/ChronicAllergic reactions (5 sources)Urticaria; Translations: [Urticaria, unspecified]Onset: 05-09-2025 16-68-1528XuxrjewfJkfimls and circulatory congenital anomalies (2 sources)Malformation of coronary vessels; 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]Onset: 66-98-2154UjnvsmbApwypwev atherosclerosis and other heart disease (20 sources)Coronary atherosclerosis due to lipid rich plaque; Translations: [Angina pectoris with documented spasm]Onset: 33-75-9723GvqbjguFewxaybxwd and other anemia (5 sources)Iron deficiency anemia; Translations: [Iron deficiency anemia, unspecified]Onset: 050205-46-0012XsawkjgbAzvqqdiid of lipid metabolism (20 sources)Mixed hyperlipidemia; Translations: [Pure hypercholesterolemia, unspecified]Onset: 84-65-1124UrcdtwwVjpkctceyteqwl and diverticulitis (17 sources)Diverticular disease; Translations: [Diverticulosis of intestine, part unspecified, without perforation or abscess without bleeding]Onset: 759465-56-1052ExqttspXojqxypiau disorders (18 sources)Gastro-esophageal reflux disease without esophagitis; Translations: [Gastroesophageal reflux disease]Onset: 451479-59-4055TxgmyqsGijbsmmyn hypertension (20 sources)Essential (primary) hypertension; Translations: [Essential hypertension]Onset: 31-13-0390YyxyacaEvgdvvohhwuyn symptoms and ill-defined conditions (5 sources)Delay when starting to pass urine; Translations: [Hesitancy of micturition]Onset: 016934-59-4569VjolwnokQaxb and other crystal arthropathies (20 sources)Gouty tophus; 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, unspecified, with tophus (tophi)]Onset: 323414-88-5147RaxaudnGmfkanpzgilf with complications and secondary hypertension (17 sources)Hypertensive left ventricular hypertrophy; Translations: [Hypertensive heart disease without heart failure]Onset: ChronicOsteoarthritis (5 sources)Localized, primary osteoarthritis of the shoulder region; Translations: [Primary osteoarthritis, unspecified shoulder]Onset: 05-09-2025 83-19-5443UdnjvsgRjimg aftercare (1 source)corrugator (current) use of aspirin; Translations: [SNF CURRENT USE OF ASPIRIN]Onset: 36-67-3202DypemflfAtozl aftercare (1 source)Other metal mold dresser (current) drug therapy; Translations: [OTH REHAB CONSULTANT CURRENT DRUG THERAPY]Onset: 28-26-1505QsmvnogxImgbj and unspecified benign neoplasm (2 sources)Melanocytic nevus of trunk; Translations: [Melanocytic nevi of trunk] 29-36-8073SkkhhbyzIokwu and unspecified benign neoplasm (2 sources)Lipoma of skin and subcutaneous tissue of neck; Translations: [Benign lipomatous neoplasm of skin and subcutaneous tissue of head, face and neck] 43-81-3692MkpileesMchje connective tissue disease (17 sources)History of total arthroplasty of left shoulder; Translations: [Presence of left artificial shoulderjoint]Onset: hronic Other connective tissue disease (5 sources)History of total replacement of left hip joint; Translations: [Presence of left artificial hip joint]Onset: 809832-26-5929DelfjpsVicig diseases of veins and lymphatics (2 sources)Disorder of vein of lower extremity; Translations: [Venous insufficiency (chronic) (peripheral)]28-65-8578TfrraqetZgonx ear and sense organ disorders (8 sources)Chronic left myringitis; Translations: [Chronic myringitis, left ear] 54-99-0378IwfdzxbFznzy ear and sense organ disorders (6 sources)Chronic infective otitis externa; Translations: [Other infective otitis externa, left ear]92-08-0993VfxoatnaFrzie ear and sense organ disorders (5 sources)Impacted cerumen; Translations: [Impacted cerumen, unspecified ear] Onset: 681025-44-3278RasqosbkIkodv gastrointestinal disorders (5 sources)Intestinal malabsorption; Translations: [Intestinal malabsorption, unspecified]Onset: 522878-86-3842VgqnxibKnnbt inflammatory condition of skin (2 sources)Seborrheic dermatitis; Translations: [Other seborrheic dermatitis] 99-01-9676HsvhybakVncyd injuries and conditions due to external causes (2 sources)Foreign body in left ear; Translations: [Foreign body in left ear, initial encounter]71-85-2992DbkyirdsXgvcv nutritional; endocrine; and metabolic disorders (5 sources)Morbid obesity; Translations: [Morbid (severe) obesity due to excess calories]Onset: 440381-08-1004NiztahvDiwiq screening for suspected conditions (not mental disorders or infectious disease) (5 sources)Imaging result abnormal; Translations: [Abnormal findings on diagnostic imaging of other specified body structures]Onset: 05-09-2025 83-37-4915MksmjcjBzqug skin disorders (2 sources)Actinic keratosis; Translations: [Actinic keratosis]12-04-2024 EpisodicOther skin disorders (2 sources)Lentiginosis; Translations: [Other melanin hyperpigmentation] 46-47-3388EdksiyhuSroplb media and related conditions (2 sources)Perforation of left tympanic membrane; Translations: [Unspecified perforation of tympanic membrane,left ear]35-90-0718NpqiuiusNmiknoesy heart disease (5 sources)Pulmonary hypertension; Translations: [Pulmonary hypertension, unspecified]Onset: 081690-85-7085SpnybnyIvzfgzda codes; unclassified (1 source)Sleep apnea, unspecified; Translations: [SLEEP APNEA UNSPECIFIED] Onset: 78-33-9965MbtkuzyQegmpenz codes; unclassified (5 sources)Obstructive sleep apnea syndrome; Translations: [Obstructive sleep apnea (adult) (pediatric)]Onset: 628632-54-5568YeugbscWrybkhvp codes; unclassified (1 source)Acquired absence of other specified parts of digestive tract; Translations: [ACQ ABSENCE OTH PART DIGESTV TRACT]Onset: 17-46-1173Zrpurjky Thyroid disorders (20 sources)Non-toxic multinodular goiter; Translations: [Nontoxic multinodular goiter]Onset: 965997-29-4769QetpwbmGadqxhstjdtm (1 source)CONTACT W/AND (SUSP) EXPOS COVID-19; Translations: [CONTACT W/AND (SUSP) EXPOS COVID-19]Onset: 09-03-2022 Past or Other Problems Problem ClassificationProblemDateDocumented DateEpisodic/ChronicNoninfectious gastroenteritis (17 sources)Gastroenteritis; Translations: [Noninfective gastroenteritis and colitis, unspecified]Onset: 083109-67-9765KnydblqxCocwrxvclsq chest pain (20 sources)Chest pain, unspecified; Translations: [Other chest pain]Onset: 71-05-9088HzguasejKwsji lower respiratory disease (4 sources)Dyspnea, unspecified; Translations: [DYSPNEA UNSPECIFIED]Onset: 72-31-5660MekqpiazRvizg screening for suspected conditions (not mental disorders or infectious disease) (17 sources)Cardiovascular stress test abnormal; Translations: [Abnormal result of other cardiovascular function study]Onset: 746641-08-8624BrwrqqdjWecty skin disorders (20 sources)Mass of neck; Translations: [Localized swelling, mass and lump, neck]Onset: 595214-23-7322Csgbuzif Results Test NameValueInterpretationReference RangeFacilityUS Thyroid glandon 04-23-2025 [place] [address] Ultrasound Report Signed Patient: KARLA MCCOLLUM MR#: [id number] : 1950 Acct:[id number] Age/Sex: 75 / M ADM Date: 04/23/25 Loc: US Attending Dr: Sadaf Malhotra M.D. Ordering Physician: Sadaf Malhotra M.D. Date of Service: 04/23/25 Procedure(s): US thyroid Accession Number(s): [id number] cc: Hoa Tran M.D.; Sadaf Malhotra M.D. [place] [id number] Patient Name: KARLA MCCOLLUM MRN: [id number] date: 1950 Sex: M Assigned Patient Location: US Current Patient Location: US Accession/Order Number: [id number] Exam Date: 04/23/2025 08:47 Report Date: 04/23/2025 [...] Baldwin M.D. 04/23/2025 9:35 AM Dictation Location: [place] [address] Electronically authenticated by: [id number] Y Date: 04/23/2025 09:35 Dictated By: Tonie Baldwin M.D. Signed By: 04/23/2538 DD/ TD/TT: Drafter Directional Survey:TBHRadiology, Radiologist, MD - 04/23/2025 [place] [address] Ultrasound Report Signed Patient: KARLA MCCOLLUM MR#: [id number] : 1950 Acct:[id number] Age/Sex: 75 / M ADM Date: 04/23/25 Loc: US Attending Dr: Sadaf Malhotra M.D. Ordering Physician: Sadaf Malhotra M.D. Date of Service: 04/23/25 Procedure(s): US thyroid Accession Number(s): [id number] cc: Hoa Tran M.D.; Sadaf Malhotra M.D. The [address] [address] Patient Name: KARLA MCCOLLUM MRN: [facility]:[id number] date: 1950 Sex: M Assigned Patient Location: US Current Patient Location: US Accession/Order Number: [id number] Exam Date: 04/23/2025 08:47 Report Date: 04/23/2025 [...] Baldwin M.D. 04/23/2025 9:35 AM Dictation Location: [place] [address] Electronically authenticated by: [id number] Y Date: 04/23/2025 09:35 Dictated By: Tonie Baldwin M.D. Signed By: 04/23/2538 DD/ 4 TD/TT: Drafter Directional Survey: ANKUSH HealthcareRadiology Study observation (narrative)NOMS HealthcareUS Thyroid glandOrdered By: Radiologist Radiology on 93-21-0685HR[facility] Healthcare Work Phone: no Panel InformationOrdered By: Nery Goncalves on 11-78-6203RSDG HealthcareOffice Visiton 57-84-7232Pukwho-up [id number] Karla Mccollum 1950 M Date Provider Department Center 11/20/[address] [facility] Family History Problem Relation Age of Onset Hypertension Mother Cancer Father Family Status - Relation Status Age at Mother Father Sister Alive Brother Alive Level of Service:67517 [place] OFFICE/OUTPATIENT ESTABLISHED LOW [facility] Anderson[facility] Thyroid glandon 02-02-[address] [address] Ultrasound Report Signed Patient: KARLA MCCOLLUM MR#: [id number] : 1950 Acct:[id number] Age/Sex: 74 / M ADM Date: 10/30/24 Loc: US Attending Dr: Sadaf Malhotra M.D. Ordering Physician: Sadaf Malhotra M.D. Date of Service: 10/30/24 Procedure(s): US thyroid Accession Number(s): [id number] cc: Hoa Tran M.D.; Sadaf Malhotra M.D. [place] [id number] Patient Name: KARLA MCCOLLUM MRN: [id number] date: 1950 Sex: M Assigned Patient Location: US Current Patient Location: US Accession/Order Number: [id number] Exam Date: 10/30/2024 10:53 Report Date: 10/30/2024 [...] Stoner Jr., D.O.10/30/2024 10:57 AM Dictation Location: [place] [address] Electronically authenticated by: [id number] Y Date: 10/30/2024 10:57 Dictated By: Dylan Stoner M.D. Signed By: 10/30/24 1100 DD/ 1057 TD/TT: Drafter Directional Survey:TBHRadiology, Radiologist, MD - 10/30/2024 [place] [address] Ultrasound Report Signed Patient: KARLA MCCOLLUM MR#: [id number] : 1950 Acct:[id number] Age/Sex: 74 / M ADM Date: 10/30/24 Loc: US Attending Dr: Sadaf Malhotra M.D. Ordering Physician: Sadaf Malhotra M.D. Date of Service: 10/30/24 Procedure(s): US thyroid Accession Number(s): [id number] cc: Hoa Tran M.D.; Sadaf Malhotra M.D. The [place] [id number] Patient Name: KARLA MCCOLLUM MRN: [id number] date: 1950 Sex: M Assigned Patient Location: US Current Patient Location: US Accession/Order Number: [id number] Exam Date: 10/30/2024 10:53 Report Date: 10/30/2024 [...] Stoner Jr., D.O.10/30/2024 10:57 AM [facility]ictation [facility] Electronically authenticated by: [id number] Y Date: 10/30/2024 10:57 Dictated By: Dylan Stoner M.D. Signed By: 10/30/24 1100 DD/ 1057 TD/TT: Drafter Directional Survey: ANKUSH HealthcareRadiology Study observation (narrative)ANKUSH QuezadaUS Thyroid glandOrdered By: Radiologist Radiology on 62-52-6596SADK [employer] Work Phone: Lod 32-15-1230JPcjwxyeh: [id number] Received: 05/17/24924 Status: SOUT Req Num: [id number] Spec Type: Cytology Subm Dr: Hoa Tran MD Tissues: A FNA SLIDES NOPATH (RT THY) B FNA SLIDES NOPATH (LT THY) Procedures: Cyto Int and Re/2, PAPSTN/10 Age/ Patient Sex Location Account Attending Physician Karla Mccollum/Sandi LABEL [id number] Hoa Tran MD SPEC NUM: [id number] RECD: 05/17/24 STATUS: SOUT REQ NUM: [id number] SEAN: 05/15/24- SUBM DR: Hoa Tran MD ENTERED: 05/17/[address]: Elisha Pearson MD SPEC TYPE: Cytology DEPT: [facility] ENTERED BY: [id number] RECV BY: [id number] ORDERED: Cyto Int and Re/2, PAPSTN/10 ORDERED: Cyto Int and Re/2, PAPSTN/10 Pathological Diagnosis A. Right thyroid, inferior nodule, fine needle aspiration: - Unsatisfactory for evaluation due to scant cellularity. - Scant watery colloid, non-diagnostic ([place] Category:I). B. Left thyroid, inferior nodule, fine needle aspiration: - Unsatisfactory for evaluation due to scant cellularity. - Scant watery colloid and blood, non-diagnostic ([place] Category:I). Comment: Recommend repeat thyroid FNA as clinically indicated. Clinical Information Bilateral thyroid nodules Gross Description A. (RT) Received fixed in Cytolyt is <1 ml colorless clear fluid for cytology and labeled as right thyroid nodule inferior. ThinPrep preparations are prepared for microscopic examination. Also received are 4 spray fixed smeared slides for pap and a Veracyte vial stored at -20 microscopic examination. (/al) Specimen: [id number] Received: 05/17/24 Status: EDWINA Spears Num: [id number] Spec Type: Cytology Subm Dr: Hoa Tran MD Tissues: A FNA SLIDES NOPATH (RT THY) B FNA SLIDES NOPATH (LT THY) Procedures: Cyto Int and Re/2, PAPSTN10 Patient: Karla Mccollum [id number] (Continued) Specimen: [id number] Received: 05/17/24 (Continued) Gross Description (Continued) Signed (signature on file) Rajesh Ridley MD 05/18/24 1609 Specimen: [id number] Received: 05/17/24 Status: EDWINA Spears Num: [id number] Spec Type: Cytology Subm Dr: Hoa Tran MD Tissues: A FNA SLIDES NOPATH (RT THY) B FNA SLIDES NOPATH (LT THY) Procedures: Cyto Int and Re/2, PAPSTN/10 Patient: Karla Mccollum [id number] (Continued) Specimen: [id number] Received: 05/17/24 (Continued) Gross Description (Continued) B. (LT) Received fixed in Cytolyt is <1 ml colorless clear fluid for cytology and labeled as left thyroid nodule inferior. ThinPrep preparations are prepared for microscopic examination. Also received are 4 spray fixed smeared slides for pap and a Veracyte vial stored at -20 for microscopic examination. (/al) Microscopic Description A B: Microscopic examination is performed. CPT Codes 29698 x2, 91763 x2 Specimen: [id number] Received: 05/17/24 Status: EDWINA Spears Num: [id number] Spec Type: Cytology Subm Dr: Hoa Tran MD Tissues: A FNA SLIDES NOPATH (RT THY) B FNA SLIDES NOPATH (LT THY) Procedures: Cyto Int and Re/2, PAPSTN/10 Patient: Karla Mccollum [id number] (Continued) Signed (signature on file) Rajesh Ridley MD 05/18/24 1609Normal [facility] Physician GroupOffice Visiton [id number]-up [id number] Karla Mccollum 1950 M Date Provider Department Center 12/22/2023 Bill-NELI STERN [facility] Family History Problem Relation Age of Onset Hypertension Mother Family Status - Relation Status Age at Mother Level of Service:24585 [place] OFFICE/OUTPATIENT ESTABLISHED LOW [facility]on 00-15-3111XNhjmhgiz: BC24 Received: 12/16/23 Status: SOUT Req Num: [id number] Spec Type: Cytology Subm Dr: Bismark Redd MD Tissues: A FNA SLIDES NOPATH (LT SUBMENT MASS) Procedures: HE/2, Cyto Int and Re, PAPSTN/7 Age/ Patient Sex Location Account Attending Physician Karla Mccollum 73/M LABELL [id number] Bismark Redd MD SPEC NUM: [id number] RECD: 12/16/23 STATUS: EDWINA REQ NUM: [id number] SEAN: 12/15/23- SUBM DR: Bismark Redd MD ENTERED: 12/16/[address] [facility] [address]: Elisha Pearson MD SPEC TYPE: Cytology DEPT: [facility] ENTERED BY: [id number] RECV BY: [id number] ORDERED: HE/2, Cyto Int and Re, PAPSTN/7 [...] pap are additionally received. (CC/nh) CPT Codes 96276 Specimen: [id number] Received: 12/16/23 Status: EDWINA Spears Num: [id number] Spec Type: Cytology Subm Dr: Bismark Redd MD Tissues: A FNA SLIDES NOPATH (LT SUBMENT MASS) Procedures: HE/2, Cyto Int and Re, PAPSTN/7 Patient: Karla Mccollum [id number] (Continued) Signed (signature on file) Bismark Quiñonez MD 12/17/23 1054 [facility] GroupLIPID PROFILEon 76-92-8883ZTUP-HDL RATIO NORM SEE [facility] HospitalComment on above:Result Comment: 3.3 - 4.4 LOW RISK 4.4 - 7.1 AVERAGE RISK 7.1 - 11.0 MODERATE RISK >11.0 HIGH RISK Performed By: #### LIPID #### [facility] [address] [place] [address] [address] Paige TeeCholesterol [Mass/Vol]151 mg/dLNormal<=200[facility] Comment on above:Performed By: #### LIPID #### [facility] [address] [place] [address] [address] Paige TeeCholesterol in HDL [Mass/Vol]40 mg/jWCzjmri78-97OwcUniversity Hospitals Beachwood Medical CenterComment on above:Performed By: #### LIPID #### [facility] [address] [place] [address] Dr. Paige TeeCholesterol in LDL [Mass/Vol]87.4 mg/dLOhioHealth Grant Medical CenterComment on above:Performed By: #### LIPID #### [facility] [address] [place] [address] Dr. Paige Garciaesterdarby.total/Cholesterol in HDL [Mass ratio]3.8 {ratio} NormalUniversity Hospitals Beachwood Medical CenterComment on above:Performed By: #### LIPID #### [facility] [address] [place] [address] Dr. Paige TeeHDRan NORMAL> or = 60 mg/dl - LOW CARDIOVASCULAR RISK <40 mg/dl - HIGH CARDIOVASCULAR RISKOhioHealth Grant Medical CenterComment on above:Performed By: #### LIPID #### [facility] [address] [place] [address] Dr. Paige TeeLDL CALC NORMALSEE [facility] HospitalComment on above:Result Comment: <100 mg/dl OPTIMAL 100 - 129 mg/dl NEAR OR ABOVE OPTIMAL 130 - 159 mg/dl BORDERLINE HIGH 160 - 189 mg/dl HIGH >190 mg/dl VERY HIGH Performed By: #### LIPID #### [facility] [address] [place] [address] Dr. Paige TeeTriglyceride [Mass/Vol]118 mg/dLNormal<=150The [facility] Comment on above:Performed By: #### LIPID #### [facility] [address] [place] [address] Dr. Paige TeeVLDL CALC23.6 mg/dLNormalThe [facility]ighComment on above: Performed By: #### LIPID #### [facility] [address] [address] [address] Paige AritaC AUTO DIFFon 07-02-8474AEMY #0.1 103/ulNormal0.0-0.1The [facility]ighComment on above:Performed By: #### CBC #### [facility] [address] [place] [address] Dr. Paige TeeBasophils/100 WBC (Bld)0.6 %Normal0.2-2.0[facility] Comment on above:Performed By: #### CBC #### [facility] [address] [place] [address] Dr. Paige Eastman #0.4 103/ulNormal0.0-0.7The [facility]ighComment on above: Performed By: #### CBC #### [facility] [address] [place] [address] Dr. Paige Salcidoosinophils/100 WBC (Bld)4.0 %Normal0.9-7.0[facility] Comment on above:Performed By: #### CBC #### [facility] [address] [place] [address] Dr. Paige Salcidorythrocyte distribution width (RBC) [Ratio]13.8 %Tqvdak22.0-15.0 The [facility]ighComment on above:Performed By: #### CBC #### [facility] [address] [place] [address] Dr. Paige TeeHematocrit (Bld) [Volume fraction]35.9 %Critically low42.0-54.0 The [facility]ighComment on above:Performed By: #### CBC #### [facility] [address] [address] [address] Paige TeeHemoglobin (Bld) [Mass/Vol]11.9 g/dLCritically low14.0-18.0The [facility]ighComment on above:Performed By: #### CBC #### [facility] [address] [address] [address] Paige Lugo #0.04 10e3/ulCritically high0.00-0.03The [facility] Comment on above:Performed By: #### CBC #### [facility] [address] [place] [address] Dr. Paige Lugo %0.4 %Normal0.0-0.5The [facility]ighComment on above: Performed By: #### CBC #### [facility] [address] [place] [address] Dr. Paige Goodman #3.2 103/ulNormal1.2-3.8The [facility]ighComment on above:Performed By: #### CBC #### [facility] [address] [place] [address] Dr. Paige Ramirezhocytes/100 WBC (Bld)30.0 %Qyhshd74.5-60.0The [facility]ighComment on above:Performed By: #### CBC #### [facility] [address] [place] [address] Dr. Paige FloodUAL DIFF REQNONormalThe [facility]ighComment on above: Performed By: #### CBC #### [facility] [address] [place] [address] Dr. Paige Vargas (RBC) [Entitic mass]27.9 vhZarniz43.9-34.0The [facility]ighComment on above:Performed By: #### CBC #### [facility] [address] [place] [address] Dr. Paige Vargas (RBC) [Mass/Vol]33.1 g/oDGzqsby24.9-35.2The [facility]ighComment on above:Performed By: #### CBC #### [facility] [address] [place] [address] Dr. Paige VargasV (RBC) [Entitic vol]84.3 bLShhvuu44.0-94.0The [facility]ighComment on above:Performed By: #### CBC #### [facility] [address] [place] [address] Dr. Paige Love #0.8 103/ulNormal0.3-0.8The [facility]ighComment on above:Performed By: #### CBC #### [facility] [address] [place] [address] Dr. Paige Gomezocytes/100 WBC (Bld)7.5 %Normal1.7-12.0The [facility] Comment on above:Performed By: #### CBC #### [facility] [address] [place] [address] Dr. Paige Servin #6.2 103/ulNormal1.4-6.5The [facility]ighComment on above:Performed By: #### CBC #### [facility] [address] [place] [address] Dr. Paige Harryutrophils/100 WBC (Bld)57.5 %Zgdslg55.0-75.0The [facility]ighComment on above:Performed By: #### CBC #### [facility] [address] [place] [address] Dr. Paige Samayoalet mean volume (Bld) [Entitic vol]9.5 fLNormal9.5-13.5The [facility]ighComment on above:Performed By: #### CBC #### [facility] [address] [place] [address] Dr. Paige TeePLT314 103/qnMydekd482-614Aab [facility]ighComment on above: Performed By: #### CBC #### [facility] [address] [place] [address] Dr. Paige TeeRBC4.26 106/ulCritically low4.70-6.10The [facility]ighComment on above:Performed By: #### CBC #### [facility] [address] [place] [address] Dr. Paige TeeWBC10.8 103/ulNormal4.0-11.0The [facility]ighComment on above:Performed By: #### CBC #### [facility] [address] [place] [address] Dr. Paige TeeCovid-19 PCR (CVDTBH)on 97-25-5056RBJK-CoV-2 (COVID-19) RNA UMER+probe Ql (Unsp spec)Not detectedNormalNOT DETECTEDThe [facility] Comment on above:Result Comment: When diagnostic testing is negative, the [...] for this test is supported by the [place] of Health and Human Service's declaration that circumstances exist to justify the emergency use of in vitro diagnostics for the detection and/or diagnosis of the virus that causes COVID-19. This EUA will remain in effect for the duration of the COVID-19 declaration justifying emergency of IVDs, unless it is terminated or revoked by the FDA (after which the test may no longer be used).Performed By: #### CVDTBH #### [facility] [address] [place] [address] Dr. Paige TeePROF CHEM 8 (BAS METB)on 00-12-3175Njevm gap [Moles/Vol]13.7 mmol/LNormalThe [facility]ighComment on above:Performed By: #### HSTROPNOE Chavarria #### [facility] [address] [place] [address] Dr. Paige TeeCalcium [Mass/Vol]9.1 mg/dLNormal8.5-10.1[facility] Comment on above:Performed By: #### HSTROPDeon BMP #### [facility] [address] [address] [address] Paige TeeChloride [Moles/Vol]104 mmol/CPsgdpp79-005Mtq [facility] Comment on above:Performed By: #### HSTROPN, BMP #### [facility] [address] [address] [address] Paige TeeCO2 [Moles/Vol]24.4 mmol/CUikyye03.0-32.0The [facility] Comment on above:Performed By: #### HSTROPN, BMP #### [facility] [address] [address] [address] Paige TeeCreatinine [Mass/Vol]1.11 mg/dLNormal0.70-1.30The [facility]ighComment on above:Performed By: #### HSTROPN, BMP #### [facility] [address] [place] [address] Dr. Gibson ChangEGFR-AF MONTSERRATIAN>60Normal>=60The [facility]ighComment on above:Performed By: #### HSTROPN, BMP #### [facility] [address] [address] [address] Paige SalcidoGFR-NON AF MONTSERRATIAN>60Normal>=60The [facility]ighComment on above:Performed By: #### HSTROPN, BMP #### [facility] [address] [address] [address] Paige TeeGlucose [Mass/Vol]115 mg/dLCritically ggkp15-539Iva [facility]ighComment on above:Performed By: #### HSTROPN, BMP #### [facility] [address] [address] [address] Paige TeePotassium [Moles/Vol]4.1 mmol/LNormal3.5-5.1The [facility] Comment on above:Performed By: #### HSTROPN, BMP #### [facility] [address] [address] [address] Paige TeeSodium [Moles/Vol]138 mmol/FUznken859-215Kkj [facility] Comment on above:Performed By: #### HSTROPN, BMP #### [facility] [address] [address] [address] Paige Merchant nitrogen [Mass/Vol]20.0 mg/dLCritically high7.0-18.0The [facility]ighComment on above:Performed By: #### HSTROPN, BMP #### [facility] [address] [address] [address] Paige TeeUrea nitrogen/Creatinine [Mass ratio]18.0 mg/mgNormalThe [facility]ighComment on above:Performed By: #### HSTROPN, BMP #### [facility] [address] [place] [address] Dr. Paige Vaguhn [facility] SENSITIVITYon 06-57-6019KCGKIR2.1 pg/mLNormal 4.0-76.1The [facility]ighComment on above:Result Comment: CUT-OFF POINTS HAVE BEEN ESTABLISHED BASED ON THE FOURTH UNIVERSAL DEFINITIONS OF MYOCARDIAL INFARCTION. THE UPPER REFERENCE LIMIT (URL) OF TROPONIN, DEFINED THE 99TH PERCENTILE OF cTnI DISTRIBUTION IN A REFERENCE POPULATION, HAS BEEN CONFIRMED THE DECISION THRESHOLD FOR [place] DIAGNOSIS.Performed By: #### HSTROPN #### [facility] [address] [place] [address] Dr. Paige TeeHSTROP4.5 pg/mLNormal4.0-76.1The [facility] on above:Result Comment: CUT-OFF POINTS HAVE BEEN ESTABLISHED BASED ON THE FOURTH UNIVERSAL DEFINITIONS OF MYOCARDIAL INFARCTION. THE UPPER REFERENCE LIMIT (URL) OF TROPONIN, DEFINED THE 99TH PERCENTILE OF cTnI DISTRIBUTION IN A REFERENCE POPULATION, HAS BEEN CONFIRMED THE DECISION THRESHOLD FOR [place] DIAGNOSIS.Performed By: #### HSTROPN, BMP #### [facility] [address] [place] [address] Dr. Paige TeeXR CHEST 1 Von 31-05-3506SC CHEST 1 VEXAMINATION: XR CHEST 1 V HISTORY: CHEST PAIN, [...] Electronically authenticated by: BISMARK REDD Date: 2022-09-02 12:29[facility]REST MULTIon 62-87-7532MO STRESS/REST MULTIPatient: KARLA MCCOLLUM Exam Date: 12/17/2021 : 1950 Gender:M Ordering : DR HOA TRAN . Admission #: [id number] Family : Order #: [id number] CLICK HERE TO VIEW EXAM RADIOLOGY REPORT [...] by: Bismark Redd MD on 12/18/2021 at 09:10[facility] BASIC METABOLIC PANELon 38-82-1289Rsfinxz [Mass/Vol]8.9 mg/dLNormal8.6-10.3The [facility] CenterComment on above:Order Comment: No: Do not add to previous drawPerformed By: #### [id number] #### [facility] [address] [place] [address], USAChloride [Moles/Vol]105 mmol/UKtxexv94-736Ymq [facility] CenterComment on above:Order Comment: No: Do not add to previous drawPerformed By: #### [id number] #### [facility] [address] [place] [address], USACO2 [Moles/Vol]25 mmol/VLfywhd54-08Oga [facility] CenterComment on above:Order Comment: No: Do not add to previous draw Performed By: #### 31063 #### [facility] [address] [place] [address], USACreatinine [Mass/Vol]0.82 mg/dLNormal0.70-1.30The [facility] CenterComment on above:Order Comment: No: Do not add to previous drawPerformed By: #### [id number] #### [facility] [address] [place] [address], USAGFR/1.73 sq M predicted among blacks MDRD (S/P/Bld) [Vol rate/Area]mL/min/{1.73_m2}Normal>60The [facility] Comment on above:Order Comment: No: Do not add to previous drawPerformed By: #### 35656 #### [facility] [address] [place] [address], USAGFR/1.73 sq M predicted among non-blacks MDRD (S/P/Bld) [Vol rate/Area]mL/min/{1.73_m2}Normal>60The [facility] Comment on above:Order Comment: No: Do not add to previous drawPerformed By: #### 64981 #### [facility] [address] [place] [address], USAGlucose [Mass/Vol]104 mg/lCRouj88-232Mgy [facility] CenterComment on above:Order Comment: No: Do not add to previous drawPerformed By: #### 34704 #### [facility] [address] [place] [address], USAPotassium [Moles/Vol]3.6 mmol/LNormal3.5-5.1The [facility] CenterComment on above:Order Comment: No: Do not add to previous drawPerformed By: #### [id number] #### [facility] [address] [place] [address], USASodium [Moles/Vol]137 mmol/WYhrsri360-910Yqi [facility] CenterComment on above:Order Comment: No: Do not add to previous drawPerformed By: #### 91552 #### [facility] [address] [place] [address], USAUrea nitrogen [Mass/Vol]13 mg/dLNormal7-25The [facility] CenterComment on above:Order Comment: No: Do not add to previous drawPerformed By: #### [id number] #### [facility] [address] [facility] [place] [address], USACBC COMPLETE BLOOD COUNTon 57-83-8374Cbdjayutzdk distribution width (RBC) [Ratio]13.1 %Uellls05.5-15.0The [facility] CenterComment on above:Order Comment: No: Do not add to previous draw Performed By: #### 85911 #### [facility] [address] [facility] [place] [address], USAHematocrit (Bld) [Volume fraction]36.6 %Low39.0-50.0The [facility] CenterComment on above:Order Comment: No: Do not add to previous drawPerformed By: #### 29622 #### [facility] [address] [facility] [place] [address], [facility] HOSPITALHemoglobin (Bld) [Mass/Vol]11.6 g/dLLow13.0-17.0The [facility] CenterComment on above:Order Comment: No: Do not add to previous drawPerformed By: #### 08292 #### [facility] [address] [place] [address], [facility]HAH (RBC) [Entitic mass]28.1 haXgxnpr15.0-33.0The [facility] CenterComment on above:Order Comment: No: Do not add to previous drawPerformed By: #### 40428 #### [facility] [address] [place] [address], [facility] CHICKASHAHC (RBC) [Mass/Vol]31.7 g/dLLow32.0-35.0The [facility] CenterComment on above:Order Comment: No: Do not add to previous drawPerformed By: #### 15463 #### [facility] [address] [place] [address], [facility]ASHAV (RBC) [Entitic vol]88.6 gNPknxqf51.0-98.0The [facility] CenterComment on above:Order Comment: No: Do not add to previous drawPerformed By: #### [id number] #### [facility] [address] [place] [address], USANucleated RBC/100 WBC (Bld) [Ratio]0 %Normal0-0The [facility] CenterComment on above:Order Comment: No: Do not add to previous drawPerformed By: #### 72708 #### [facility] [address] [facility] [place] [address], USAPLAT CUS582 10*3/eCLyjpch109-309Kuv [facility] CenterComment on above:Order Comment: No: Do not add to previous draw Performed By: #### 64258 #### [facility] [address] [place] [address], USARBC (Bld) [#/Vol]4.13 10*6/uLLow4.20-5.70The [facility] CenterComment on above:Order Comment: No: Do not add to previous drawPerformed By: #### 44120 #### [facility] [address] [place] [address], USAWBC (Bld) [#/Vol]10.27 10*3/uLNormal4.00-10.60The [facility] CenterComment on above:Order Comment: No: Do not add to previous drawPerformed By: #### 19728 #### [facility] [address] [place] [address], USABASIC METABOLIC PANELon 29-29-2344Wzdbrmw [Mass/Vol]9.2 mg/dLNormal8.6-10.3The [facility] CenterComment on above:Order Comment: No: Do not add to previous drawPerformed By: #### 72150 #### [facility] [address] [place] [address], USAChloride [Moles/Vol]106 mmol/YAwlfuy92-907Njf [facility] CenterComment on above:Order Comment: No: Do not add to previous drawPerformed By: #### 68153 #### [facility] [address] [place] [address], USACO2 [Moles/Vol]27 mmol/BZiqadw13-10Jnz [facility] CenterComment on above:Order Comment: No: Do not add to previous draw Performed By: #### 39619 #### [facility] [address] [place] [address], USACreatinine [Mass/Vol]0.84 mg/dLNormal0.70-1.30The [facility] CenterComment on above:Order Comment: No: Do not add to previous drawPerformed By: #### 70850 #### [facility] [address] [place] [address], USAGFR/1.73 sq M predicted among blacks MDRD (S/P/Bld) [Vol rate/Area]mL/min/{1.73_m2}Normal>60The [facility] Comment on above:Order Comment: No: Do not add to previous drawPerformed By: #### 17124 #### [facility] [address] [place] [address], USAGFR/1.73 sq M predicted among non-blacks MDRD (S/P/Bld) [Vol rate/Area]mL/min/{1.73_m2}Normal>60The [facility] Comment on above:Order Comment: No: Do not add to previous drawPerformed By: #### [id number] #### [facility] [address] [place] [address], USAGlucose [Mass/Vol]101 mg/fSTkdw62-276Gry [facility] CenterComment on above:Order Comment: No: Do not add to previous drawPerformed By: #### 74696 #### [facility] [address] [place] [address], USAPotassium [Moles/Vol]3.8 mmol/LNormal3.5-5.1The [facility] CenterComment on above:Order Comment: No: Do not add to previous drawPerformed By: #### 42472 #### [facility] [address] [place] [address], USASodium [Moles/Vol]139 mmol/JWudyix667-096Usd [facility] CenterComment on above:Order Comment: No: Do not add to previous drawPerformed By: #### 22983 #### [facility] [address] [place] [address], USAUrea nitrogen [Mass/Vol]15 mg/dLNormal7-25The [facility] CenterComment on above:Order Comment: No: Do not add to previous drawPerformed By: #### 98797 #### [facility] [address] [place] [address], [facility] HOSPITALCBC COMPLETE BLOOD COUNTon 78-55-6373Tbwzeoigohd distribution width (RBC) [Ratio]12.9 %Voiekm90.5-15.0The [facility] CenterComment on above:Order Comment: No: Do not add to previous draw Performed By: #### 31909 #### [facility] [address] [place] [address], USAHematocrit (Bld) [Volume fraction]38.6 %Low39.0-50.0The [facility] CenterComment on above:Order Comment: No: Do not add to previous drawPerformed By: #### 45859 #### [facility] [address] [place] [address], USAHemoglobin (Bld) [Mass/Vol]12.3 g/dLLow13.0-17.0The [facility] CenterComment on above:Order Comment: No: Do not add to previous drawPerformed By: #### 98226 #### [facility] [address] [place] [address], [facility] (RBC) [Entitic mass]28.5 twSumqzp15.0-33.0The [facility] CenterComment on above:Order Comment: No: Do not add to previous drawPerformed By: #### 02276 #### [facility] [address] [place] [address], [facility] GENERAL HOSPITALMCHC (RBC) [Mass/Vol]31.9 g/dLLow32.0-35.0The [facility] CenterComment on above:Order Comment: No: Do not add to previous drawPerformed By: #### 72305 #### [facility] [address] [place] [address], [facility] HOSPITALMCV (RBC) [Entitic vol]89.6 aOGiobni18.0-98.0The [facility] CenterComment on above:Order Comment: No: Do not add to previous drawPerformed By: #### 92731 #### [facility] [address] [place] [address], USANucleated RBC/100 WBC (Bld) [Ratio]0 %Normal0-0The [facility] CenterComment on above:Order Comment: No: Do not add to previous drawPerformed By: #### 85237 #### [facility] [address] [place] [address], USAPLAT AOU990 10*3/zVAjdmaj271-390Cvs [facility] CenterComment on above:Order Comment: No: Do not add to previous draw Performed By: #### 85801 #### [facility] [address] [place] [address], USARBC (Bld) [#/Vol]4.31 10*6/uLNormal4.20-5.70The [facility] CenterComment on above:Order Comment: No: Do not add to previous drawPerformed By: #### 09056 #### [address] [place] [address], USAWBC (Bld) [#/Vol]10.25 10*3/uLNormal4.00-10.60The [facility] CenterComment on above:Order Comment: No: Do not add to previous drawPerformed By: #### 54665 #### [address] [place] [address], USACTA HEART-CORONARY/ ARTERY BYPASS GRAFT WITH 3DPPon 26-92-3195MHG HEART-CORONARY/ ARTERY BYPASS GRAFT WITH 3DPPUnBlanchard Valley Health System Department of Radiology [address] [place] [phone] Patient Name: KARLA MCCOLLUM : 1950 Sex: M Age: Race: White Pt. Location: [id number] Patient Status: I Ordered Date: 10/11/2020 8:30:00 [...] coronary artery disease otherwise. Electronically signed: Asa Sands. Transcribed by: [email or web address], User Resident: ASA SANDS Electronically Signed by: ASA SANDS @ 10/11/2020 04:34 PM I personally read this/these film(s) with this residentWyandot Memorial HospitalComment on above:Order Comment: Other, LAD arising from right coronary cuspCardiovascular Lab Reporton [id number] Lab ReportUnAvita Health System Patient Name: Karla Mccollum [facility] Celestine MR #: [id number] Department of Physician: Neli Eric Justin Stern M.D. Division of Service Date: 10/10/2020 Cardiology Birthdate: 1950 Adult Cardiovascular Room #: 3AB [id number] [facility] [address] [place] [id number] Cardiovascular Laboratory Report INDICATION: The patient is [...] signed informed consent. 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 The right wrist area was prepped and draped in usual fashion. Modified Satnam's test was favorable on the right. Access in the right radial artery was obtained using micropuncture technique. A 6-Eritrean x 11 cm Hydrophilic sheath was advanced, [...] adequate location, this was upsized to a 6-Eritrean x 11 cm sheath. Bilateral selective coronary angiography was then performed using 6-Eritrean JL3.5 and JR4 diagnostic catheters. The 6-Eritrean JR4 diagnostic catheter was then used to [...] Stern M.D. Date Trans: 10/11/2020 06:09 A/lucia [id number]_[id number] cc: Hoa Tran M.D. [address] [place] [address] Neli Stern M.D. Heart Failure/ Transplant Mailstop [address] [facility] [address]NohhikMxuWyandot Memorial HospitalBASIC METABOLIC PANELon 72-32-9893Ivivstk [Mass/Vol]9.0 mg/dLNormal8.6-10.3The [facility] CenterComment on above:Order Comment: No: Do not add to previous drawPerformed By: #### 29257, 14727 #### [facility] [address] [place] [address], USAChloride [Moles/Vol]103 mmol/UAslvow96-079Zbb [facility] CenterComment on above:Order Comment: No: Do not add to previous drawPerformed By: #### 65984, 29714 #### [facility] [address] [place] [address], USACO2 [Moles/Vol]25 mmol/ZOmqdod99-36Oqo [facility] CenterComment on above:Order Comment: No: Do not add to previous draw Performed By: #### [id number], 84786 #### [facility] [address] [place] [address], USACreatinine [Mass/Vol]0.87 mg/dLNormal0.70-1.30The [facility] CenterComment on above:Order Comment: No: Do not add to previous drawPerformed By: #### 65317, 73236 #### [facility] [address] [place] [address], USAGFR/1.73 sq M predicted among blacks MDRD (S/P/Bld) [Vol rate/Area]mL/min/{1.73_m2}Normal>60The [facility] Comment on above:Order Comment: No: Do not add to previous drawPerformed By: #### 26687, 86095 #### [facility] [address] [place] [address], USAGFR/1.73 sq M predicted among non-blacks MDRD (S/P/Bld) [Vol rate/Area]mL/min/{1.73_m2}Normal>60The [facility] Comment on above:Order Comment: No: Do not add to previous drawPerformed By: #### 14298, 56133 #### [facility] [address] [place] [address], USAGlucose [Mass/Vol]109 mg/wWWxaa70-128Ffg [facility] CenterComment on above:Order Comment: No: Do not add to previous drawPerformed By: #### 58638, 49578 #### [facility] [address] [place] [address], USAPotassium [Moles/Vol]3.5 mmol/LNormal3.5-5.1The [facility] CenterComment on above:Order Comment: No: Do not add to previous drawPerformed By: #### 24282, 50632 #### [facility] [address] [place] [address], USASodium [Moles/Vol]137 mmol/FBbcqbq384-264Wok [facility] CenterComment on above:Order Comment: No: Do not add to previous drawPerformed By: #### 98298, 02935 #### [facility] [address] [place] [address], USAUrea nitrogen [Mass/Vol]14 mg/dLNormal7-25The [facility] CenterComment on above:Order Comment: No: Do not add to previous drawPerformed By: #### 45233, 76254 #### [facility] [address] [facility] [place] [address], USACBC COMPLETE BLOOD COUNTon 76-47-5074Xkjjnnvzkvf distribution width (RBC) [Ratio]13.2 %Vcpvuu60.5-15.0The [facility] CenterComment on above:Order Comment: No: Do not add to previous draw Performed By: #### 85897 #### [facility] [address] [address], USAHematocrit (Bld) [Volume fraction]38.2 %Low39.0-50.0The [facility] CenterComment on above:Order Comment: No: Do not add to previous drawPerformed By: #### 04240 #### [facility] [address] [place] [address], USAHemoglobin (Bld) [Mass/Vol]12.2 g/dLLow13.0-17.0The [facility] CenterComment on above:Order Comment: No: Do not add to previous drawPerformed By: #### 63030 #### [facility] [address] [place] [address], [facility] HOSPITALMCH (RBC) [Entitic mass]28.6 jmBelumh78.0-33.0The [facility] CenterComment on above:Order Comment: No: Do not add to previous drawPerformed By: #### 96755 #### [facility] [address] [place] [address], [facility] HOSPITALMCHC (RBC) [Mass/Vol]31.9 g/dLLow32.0-35.0The [facility] CenterComment on above:Order Comment: No: Do not add to previous drawPerformed By: #### 65953 #### [facility] [address] [place] [address], [facility] HOSPITALMCV (RBC) [Entitic vol]89.5 tSUkcukm65.0-98.0The [facility] CenterComment on above:Order Comment: No: Do not add to previous drawPerformed By: #### 90442 #### [facility] [address] [place] [address], USANucleated RBC/100 WBC (Bld) [Ratio]0 %Normal0-0The [facility] CenterComment on above:Order Comment: No: Do not add to previous drawPerformed By: #### 87616 #### [facility] [address] [place] [address], USAPLAT IIZ054 10*3/hFDkbojp175-504Xxy [facility] CenterComment on above:Order Comment: No: Do not add to previous draw Performed By: #### 67539 #### [facility] [address] [place] [address], USARBC (Bld) [#/Vol]4.27 10*6/uLNormal4.20-5.70The [facility] CenterComment on above:Order Comment: No: Do not add to previous drawPerformed By: #### 32937 #### [facility] [address] [place] [address], USAWBC (Bld) [#/Vol]10.57 10*3/uLNormal4.00-10.60The [facility] CenterComment on above:Order Comment: No: Do not add to previous drawPerformed By: #### 44408 #### [facility] [address] [place] [address], USAHEMOGLOBIN A1Con 18-68-6801QhT1o (Bld) [Mass fraction]6.0 % Normal4.0-6.0The [facility] CenterComment on above:Order Comment: No: Do not add to previous drawPerformed By: #### 61544 #### [facility] [address] [place] [address], LVCRaP5p (Bld) [Mass fraction]126 mmol/LNormalThe [facility] CenterComment on above:Order Comment: No: Do not add to previous drawPerformed By: #### 02909 #### [facility] [address] [place] [address], USALIPID PROFILEon 41-87-6634Pnjqnhmpipr [Mass/Vol]144 mg/dL Rowdrz758-087Lyg [facility] CenterComment on above:Order Comment: No: Do not add to previous drawResult Comment: CHOLESTEROL REFERENCE RANGE: 20 YEARS AND OLDER CARDIOVASCULAR RISK Less than 200 mg/dl Low Risk 200 to 239 mg/dl Borderline Risk 240 mg/dl and greater High RiskPerformed By: #### 97110, 37597 #### [facility] [address] [place] [address], USACholesterol in HDL [Mass/Vol]30 mg/sPEhfbgo37-50Nqk [facility] CenterComment on above:Order Comment: No: Do not add to previous drawResult Comment: Slight variation in normal range could be due to gender and/or age. HDL CHOLESTEROL REFERENCE RANGE: 20 years and older Cardiovascular Risk > or =60 mg/dL Desirable 40 TO 59 mg/dL Low Risk <40 mg/dL High RiskPerformed By: #### 34231, 68953 #### [facility] [address] [place] [address], USACholesterol in LDL [Mass/Vol]73 mg/dLNormal0-130The [facility] CenterComment on above:Order Comment: No: Do not add to previous drawResult Comment: LDL IS A CALCULATION LDL IS ONLY VALID IF THE TRIG IS LESS THAN 400.Performed By: #### 17948, 62370 #### [facility] [address] [place] [address], USACholesterol.total/Cholesterol in HDL [Mass ratio]4.8 {ratio}High0.0-4.5The [facility] CenterComment on above:Order Comment: No: Do not add to previous drawPerformed By: #### 38915, 10823 #### [facility] [address] [place] [address], USANON-HDL HRJPFDZTTPE069 mg/dLNormalThe [facility] CenterComment on above:Order Comment: No: Do not add to previous draw Performed By: #### 40152, 43483 #### [facility] [address] [place] [address], USATriglyceride [Mass/Vol]203 mg/iWNryy58-072Phs [facility] CenterComment on above:Order Comment: No: Do not add to previous drawResult Comment: TRIGLYCERIDE REFERENCE RANGE: 20 YEARS AND OLDER CARDIOVASCULAR RISK LESS THAN 150 mg/dl LOW RISK 150 TO 199 mg/dl BORDERLINE RISK 200 mg/dl AND GREATER HIGH RISKPerformed By: #### 32595, 71155 #### [facility] [address] [place] [address], USAVLDL CHOL41 mg/dLHigh0-40The [facility] CenterComment on above:Order Comment: No: Do not add to previous drawPerformed By: #### 01102, 41437 #### [facility] [address] [place] [address], USAPROTHROMBIN TIMEon 92-05-0542UBD Coag (PPP) [Relative time] 1.00 {INR}Normal0.91-1.16The [facility] CenterComment on above:Order Comment: No: Do not add to previous drawResult Comment: ACCCP RECOMMENDED INR FOR WARFARIN THERAPY ------- CONDITION INR PROPHYLAXIS OF VENOUS THROMBOSIS 2-3 (HIGH-RISK SURGERY) TREATMENT OF VENOUS THROMBOSIS 2-3 TREATMENT OF PULMONARY EMBOLISM 2-3 PREVENTION OF SYSTEMIC EMBOLISM: 2-3 ACUTE MYOCARDIAL INFARCTION TISSUE HEART VALVES VALVULAR HEART DISEASE ATRIAL FIBRILLATION RECURRENT SYSTEMIC EMBOLISM MECHANICAL HEART VALVE 2.5-3.5 FROM: ORAL ANTICOAGULANTS. MECHANISM OF ACTION, CLINICAL EFFECTIVENESS, AND OPTIMAL THERAPEUTIC RANGE. CHEST 1995;108:231S-246S.Performed By: #### 97967 #### [facility] [address] [place] [address], USAPT Coag (PPP) [Time]13.2 fTgpcda63.3-14.8The [facility] CenterComment on above:Order Comment: No: Do not add to previous drawResult Comment: ALL RESULTS MUST BE INTERPRETED WITH RESPECT TO BLOOD DRAWING ARTIFACT OR DILUTION ERROR OF ANTICOAGULANT AT THE TIME OF SAMPLING.Performed By: #### 00571 #### [facility] [address] [place] [address], USABNP (B-TYPE NATRIURETIC PEPTIDE)on 97-86-6576Xyrlapbmaof peptide B (Bld) [Mass/Vol]32 pg/mLNormal0-100The [facility] CenterComment on above:Order Comment: No: Do not add to previous drawResult Comment: Given the appropriate clinical setting a BNP result of >100 pg/mL indicates congestive heart failure.Performed By: #### 98066 #### [facility] [address] [place] [address], USATROPONIN-Ion 12-12-3346Qbskmdfc I.cardiac [Mass/Vol]0.00 ng/mLNormal0.00-0.04The [facility] CenterComment on above: Order Comment: No: Do not add to previous drawResult Comment: REFERENCE RANGES: 0.00 - 0.14 ng/ml NEGATIVE 0.15 - 0.25 ng/ml INDETERMINATE > 0.25 ng/ml INDICATIVE OF AN M.I.Performed By: #### 82373 #### [facility] [address] [facility] [place] [address], USAProvider Letter FTon 48-30-8633Pyxpqmjy Letter [facility] [address] [address], [address] [facility] [place] [place] [address] Re: KARLA MCCOLLUM Date of : 1950 Thank you for your referral of Karla Mccollum who was seen on consultation on Sep 17, 2020, for three skin lesions of concern. I have enclosed my consultation note for your review, and I will be happyto follow Karla should he need further treatment. Sincerely, Karla Dye MD General SurgeryNoTrinity Health System East CampusFacesheeton 44-76-2753Yxjtkanfj [id number]#1.00CD:127Flower HospitalAmbulatory Clinical Summaryon 46-58-4699Ddczlnrlue Clinical Summary {x6-2q-qd-wt-v2-11-4d-28-11-64-42-70-9f-63-e5-7e}CD:[id number] HospitalGeneral Surgery Office/Clinic Noteon 69-80-9453Qavhkrz Surgery Office/Clinic NoteChief Complaint referral for nevus HPI Staff 70 [...] of skin cancer; on diclofenac daily, no asause; no tobacco use. Review of Systems PHQ Score Initial Depression Screen Score: 0 ROS - Provider Constitutional: no fever, no sweats, no weight loss. Eyes: no glasses, no blurred vision, no visual loss. ENMT: no dentures, no hoarseness, no swallowing difficulties, no hearing loss, no ear infection(s),no nose bleeds. Cardiovascular: high blood pressure, no [...] 3 mm area of induration around hair follicle,no drainage, no ulcers, no subcutaneous nodules, Psychiatric/Neuro: [...] Family History Primary malignant neoplasm of lung: Father.[facility] Comment on above:Result Comment: Electronically Signed By: SHEY WARD, Karla Leos\Date and Time Signed: 09/17/20 16:29 ESTPhysician Referralon 09-16-2020 Physician [id number]#1.00CD:127Normal [facility] Vital Signs Date TimeVital SignValuePerforming GchwwyjgvRymgwoug49-31-0983 09:22-0400Body gykdjv945.8 cmSadaf Malhotra MD Work Phone: [phone] [place], [place] [address]Tiuprikubo69-52-9240 09:22-0400Body mass index (BMI) [Ratio]35.3 kg/h8IsxhfpSadaf Malhotra MD Work Phone: 1(321)[address] [place], [place] 7705510-13-2025 09:22-0400Body cbizcy982.58 kgSadaf Malhotra MD Work Phone: 1(587)[address] [place], [place] 7705510-13-2025 09:22-0400Diastolic blood vsglbzby52 mm[Hg]Sadaf Malhotra MD Work Phone: 1(018)[address] [place], [place] 7705510-13-2025 09:22-0400Heart rate64 /min Sadaf Malhotra MD Work Phone: 1(620)[address] [place], [place] 7705510-13-2025 09:22-0400Systolic blood lzhatozc404 mm[Hg]Sadaf Malhotra MD Work Phone: 1(032)[address] [place], [place] 7705509-24-2025 08:08-0400Body imabqy106.8 cmSadaf Malhotra MD Work Phone: 1(731)[address] [place], [place] 7705509-24-2025 08:08-0400Body mass index (BMI) [Ratio]35.3 kg/z8NztlnrSadaf Malhotra MD Work Phone: 1(831)[address] [place], [place] 7705509-24-2025 08:08-0400Body oqvywr332.58 kgSadaf Malhotra MD Work Phone: 1(762)[address] [place], [place] 7705509-24-2025 08:08-0400Diastolic blood mm[Hg]Sadaf Malhotra MD Work Phone: 1(859)[address] [place], [place] 7705509-24-2025 08:08-0400Heart rate65 /min Sadaf Malhotra MD Work Phone: 1(140)[address] [place], [place] 7705509-24-2025 08:08-0400Systolic blood ccmfothr534 mm[Hg]Sadaf Malhotra MD Work Phone: 1(857)[address] [place] [address]-09-2025 09:32-0400Body lkuyiq573.8 cmSadaf Malhotra MD Work Phone: 1(960)[address]09-09-2025 09:32-0400Body mass index (BMI) [Ratio]35.15 kg/a3DwsdlpSadaf Malhotra MD Work Phone: 1(962)[address] [place], [place] 7705509-09-2025 09:32-0400Body ceohig157.13 kgSadaf Malhotra MD Work Phone: 1(066)[address] [place], [place] 7705509-09-2025 09:32-0400Diastolic blood mm[Hg]Sadaf Malhotra MD Work Phone: 1(750)[address] [place], [place] 7705509-09-2025 09:32-0400Heart rate62 /min Sadaf Malhotra MD Work Phone: 1(491)[address] [place], [place] 7705509-09-2025 09:32-0400Systolic blood aitguxwj720 mm[Hg]Sadaf Malhotra MD Work Phone: 1(698)[address] [place], [place] 7705509-03-2025 13:08-0400Body jhvxum459.8 cmSadaf Malhotra MD Work Phone: 1(050)[address] [place], [place] 7705509-03-2025 13:08-0400Body mass index (BMI) [Ratio]35.15 kg/j4PowmiaSadaf Malhotra MD Work Phone: 1(553)[address] [place], [place] 7705509-03-2025 13:08-0400Body .13 kgSadaf Malhotra MD Work Phone: 1(528)[address] [place], [place] 7705509-03-2025 13:08-0400Diastolic blood uemhvqjd48 mm[Hg]Sadaf Malhotra MD Work Phone: 1(533)[address] [place], [place] 7705509-03-2025 13:08-0400Heart rate62 /min Sadaf Malhotar MD Work Phone: 1(144)[address] [place], [place] 7705509-03-2025 13:08-0400Systolic blood dlpqpzqa900 mm[Hg]Sadaf Malhotra MD Work Phone: 1(130)[address] [place], [place] 7705510-15-2024 10:29-0400Body zfylbw431.8 cmSadaf Malhotra MD Work Phone: 1(065)[address] [place], [place] 7705510-15-2024 10:29-0400Body mass index (BMI) [Ratio]36.16 kg/y3WbzhqkSadaf Malhotra MD Work Phone: [facility] HospitalOidoffxajz38-42-5737 10:29-0400Body ihwbpy432.31 kgSadaf Malhotra MD Work Phone: [facility] HospitalOpkgbgigeo27-19-7950 10:29-0400Diastolic blood bcjcszxo15 mm[Hg]Sadaf Malhotra MD Work Phone: [facility] HospitalUsmwslupdc67-33-1287 10:29-0400Systolic blood neuugahf583 mm[Hg]Sadaf Malhotra MD Work Phone: [facility] Healthcare Encounters Encounter DateEncounter TypeCare ProviderFacilityStart: 05-28-2025 End: 96-45-5565Gzlhsu Bj Malhotra MD Work Phone: [facility] OtolaryngologyStart: 05-28-2025 End: 22-60-2209Whekjgwayne Malhotra MD Work Phone: [facility] [place] OtolaryngologyStart: 05-28-2025 End: 16-39-3975Xwrrvb outpatient visit 25 minutesSadaf Malhotra MD Work Phone: [facility] CenterViola OtolaryngologyComment on above:Chronic myringitis of left ear (Primary Dx)Start: 05-28-2025 End: 57-47-9101bsoholdydkYIZKCB H TIMMISNot AvailableStart: 05-09-2025 End: 85-90-0090Xevuklwayne Malhotra MD Work Phone: NO [place] OtolaryngologyStart: 05-09-2025 End: 91-97-7238Uklaciwayne Malhotra MD Work Phone: ANKUSH Stoner OtolaryngologyStart: 05-09-2025 End: 03-37-1929Ajsyen outpatient visit 25 minutesSadaf Malhotra MD Work Phone: noms [place] OtolaryngologyComment on above:Chronic myringitis of left ear (Primary Dx); Other infective chronic otitis externa of left earStart: 05-09-2025 End: 32-41-3404ojjhentxykZNEBIL H TIMMISNot AvailableStart: 04-24-2025 End: 53-85-0425Esgykn Bj Malhotra MD Work Phone: noms [place] OtolaryngologyStart: 04-24-2025 End: 34-54-3953Zmcxxyxin Malhotra MD Work Phone: noms [place] OtolaryngologyStart: 04-24-2025 End: 92-44-4029Aoesad outpatient visit 25 minutesSadaf Malhotra MD Work Phone: noms [place] OtolaryngologyComment on above:Chronic myringitis of left ear (Primary Dx); Other infective chronic otitis externa of left ear; Perforation of left tympanic membrane; Nontoxic multinodular goiter ; Lipoma of neckStart: 04-24-2025 End: 41-47-0070zuqphcpqcdZUBUAD H TIMMISNot AvailableStart: 04-23-2025 End: 74-72-3202Zgnqswyao Result EncounterSadaf Malhotra MD Work Phone: noms External Department UnsolicitedStart: 04-23-2025 End: 84-66-3502Sgckdokvg Result EncounterSadaf Malhotra MD Work Phone: noms External Department UnsolicitedStart: 04-23-2025 End: 77-60-8976Lvuyhoidn encounterSadaf Malhotra MD Work Phone: noms [place] OtolaryngologyComment on above:ear drops burnStart: 04-18-2025 End: 58-21-7194Xffycywayne Malhotra MD Work Phone: noms [place] OtolaryngologyStart: 04-18-2025 End: 13-82-1606Wtirmg flowsheetSadaf Malhotra MD Work Phone: noms [place] OtolaryngologyStart: 04-18-2025 End: 73-91-5042Wqhlkj outpatient visit 25 minutesSadaf Malhotra MD Work Phone: noms [place] OtolaryngologyComment on above:Chronic myringitis of left ear (Primary Dx); Other infective chronic otitis externa of left ear; Foreign body of left ear, initial encounterStart: 04-18-2025 End: 28-40-5932inzautlyymESPXNA H TIMMISNot AvailableStart: 12-04-2024 End: 99-85-0529Acipry flowsheetEmapollo Guillen MD Work Phone: noms SWS DERMStart: 12-04-2024 End: 20-54-8383Vpzuev flowsreyesEmapollo Guillen MD Work Phone: noms SWS DERMStart: 12-04-2024 End: 64-11-0217Wbuigr outpatient visit 25 minutesEmapollo Guillen MD Work Phone: noms SWS DERMComment on above:Other seborrheic dermatitis (Primary Dx); Melanocytic nevus of trunk; Actinic keratosis; Lentigines; Stasis dermatitis of both legsStart: 12-04-2024 End: 22-51-6667lwyjcvvzdfNXGWR Ester PETITTINot AvailableStart: 11-20-2024 End: 58-55-0253vjwumrsvuqWISSHR [facility] Start: 11-08-2024 End: 71-84-7215zjqvhonvyfAAVKLK H TIMMISNot AvailableStart: 10-30-2024 End: 17-01-0045Fvrapaxeu Result EncounterSadaf Malhotra MD Work Phone: noms External Department UnsolicitedStart: 10-30-2024 End: 58-09-4745Joxoomidz Result EncounterSadaf Malhotra MD Work Phone: noms External Department UnsolicitedStart: 05-30-2024 End: 50-81-6634Zskesg flowsheetSadaf Malhotra MD Work Phone: noms CI ENTStart: 05-30-2024 End: 52-69-6216Djklir flowsheetSadaf Malhotra MD Work Phone: noms CI ENTStart: 05-30-2024 End: 98-43-9165Bzqvhv outpatient new 45 minutesSadaf Malhotra MD Work Phone: noms CI ENTComment on above:Nontoxic multinodular goiter (CMS/HCC) (Primary Dx); Neck massStart: 05-30-2024 End: 97-43-3881uejfmmppkjJNSINI H TIMMISNot AvailableStart: 05-15-2024 End: 03-22-3240qblzxckxnvNnvydok M [facility] Work Phone: Start: 05-15-2024 End: 82-40-0415Typqbdre ReferredMD Hoa Tran Work Phone: [facility]-LAB Path Spec Lili HospStart: 12-22-2023 End: 71-85-1168azgnmoaeieQBDAEE [facility] Start: 12-15-2023 End: 73-95-5716pnyggaizgyKqfqe V WestFacility:[facility] Start: 11-24-2022 End: 59-15-7732qruuhfoqcvLK NELI NORWOODELFacility:T4Mkgqq: 09-02-2022 End: 22-25-3172pyvktvnpvsHS HOA TRAN .Facility:C1Emizv: 12-17-2021 End: 99-50-8634qzulurdyzcFO HOA TRAN .Facility:Y0Kjhoz: 10-09-2020 End: 57-52-1982Fddjdqnubo and management of inpatientDOUGLAS HORyFacility:[facility] Procedures DateProcedureProcedure DetailPerforming ClinicianStart: 56-39-8221Vv soft tissue head & neck real time derrick Malhotra MD Work Phone: Start: 10-59-7211EYAHZKRYFRE SKIN LESIONEmapollo Guillen MD Work Phone: Start: 34-38-7996Pi soft tissue head & neck real time derrick Malhotra MD Work Phone: Start: 78-41-7583WQWDAGHTN OTH THERAP SUBST IN CORONARY ART, PERCGEORGE V MOUKARBELStart: 93-33-8621DFKQH RADIOGRAPHY OF MULT COR ART USING L OSM CONTRASTGEORGE V MOUKARBELStart: 54-20-0836PYALF RADIOGRAPHY OF R LOW EXTREM ART USING L OSM CONTRASTGEORGE V MOUKARBEL Plan of Treatment DateCare ActivityDetailAuthorStart: 04-24-2026 End: 66-38-2306Kolgord encounter ximwxtxdf86/09/2026 8:00 AM EDT Office Visit [facility] [place] [facility] [address] [place] [address] Sadaf Malhotra MD [address] [place] [address] [facility] [place] OtolaryngologyStart: 12-04-2025 End: 31-94-3319Kwhobyj encounter procedureNOMS SWS DERMStart: 06-11-2025 End: 76-11-0430Yyfyqru encounter icwfpgqhc85/27/2025 1:00 PM EDT Office [facility] [address] [place] [address] Sadaf Malhotra MD [address] [place] [address] [facility] [place] OtolaryngologyStart: 05-28-2025 End: 80-04-4016Tifuzin encounter mculhbvpd13/13/2025 9:40 AM EDT Office Visit [facility] [place] [facility] [address] [place] [address] Sadaf Malhotra MD [address] [place] [address] ArrivedNOMS [place] OtolaryngologyComment on above:ArrivedStart: 05-09-2025 End: 66-74-0813Aalmxml encounter procedureNOMS CI ENTComment on above:Arrived Start: 04-24-2025 End: 43-22-0450Anbldil encounter procedureNOMS [place] OtolaryngologyComment on above:ArrivedStart: 04-18-2025 End: 79-70-5478Gwcnuyr encounter njiqgvbnl27/03/2025 1:10 PM EDT Office Visit [facility] [place] [facility] [address] [place] [address] Sadaf Malhotra MD [address] [place] [address] ArrivedNO [place] OtolaryngologyComment on above:ArrivedStart: 55-67-7996Xjrpidfik vaccinationNOMS HealthcareStart: 12-04-2024 End: 60-14-0276Tbnwrcr encounter procedureNOMS SWS DERMComment on above:Arrived Start: 11-08-2024 End: 57-10-9699Cnuxflz encounter oyfsneuwc54/26/2025 8:30 AM EDT Office Visit [facility] [address] [place] [address] Sadaf Malhotra MD [address] [place] [address] NOMS CI ENTStart: 05-30-2024 End: 42-35-9834Cbqswft encounter smqriykem73/15/2024 10:30 AM EDT Office Visit [facility] [address] [place] [address] Sadaf Malhotra MD [address] [place], [place] [address] [facility] ENTComment on above:ArrivedStart: 87-02-8832Aukdwudha vaccinationInfluenza Vaccine (#1)[facility] HealthcareStart: 84-41-0179Yrqdmbrmv for malignant neoplasm of colonFILLMORE COMMUNITY [facility] Healthcare Immunizations Immunization DateImmunizationNotesCare AogcndszTpjykxkq07-66-7853Wodqvgww trivalent influenza vaccine, adjuvanted, preservative freeSadaf Malhotra MD Work Phone: [facility] HospitalBefvsffftk66-70-8455jywqozfrc virus vaccine, unspecified formulationSadaf Malhotra MD Work Phone: [facility] HospitalPvsqioluzk88-86-2335MUO, recombinant, protein subunit RSVpreF, adjuvant reconstitu, 120mcg/0.5mL, PF (Arexvy)Sadaf Malhotra MD Work Phone: [facility] HospitalEmwwlynqwz51-94-6958Ggqaflpwd, Seasonal, Quadrivalent, AdjuvantedSadaf Malhotra MD Work Phone: [facility] [id number] Conjugate PCV 20 Sadaf Malhotra MD Work Phone: [facility] [id number] virus vaccine, unspecified formulationSadaf Malhotra MD Work Phone: [facility] [id number] trivalent influenza vaccine, adjuvanted, preservative freeSadaf Malhotra MD Work Phone: [facility] [id number] vaccine recombinant Sadaf Malhotra MD Work Phone: [facility] [id number], high dose seasonal, preservative-freeSadaf Malhotra MD Work Phone: [facility] [facility] HospitalPpxyzpkrte80-20-8451snjuss vaccine recombinant Sadaf Malhotra MD Work Phone: [facility] HospitalFdoxdwssco35-91-7808Pjpksnwl trivalent influenza vaccine, adjuvanted, preservative freeSadaf Malhotra MD Work Phone: [facility] HospitalZwkoltvnfx10-99-2591buprancxs, high dose seasonal, preservative-freeSadaf Malhotra MD Work Phone: [facility] HospitalMtgfczmpuu89-88-2990vpntwnlnwdyr polysaccharide vaccine, 23 valentHilary Dejon WARD Work Phone: [facility] HospitalRkqbydoxca32-30-4843tfshyjufg virus vaccine, unspecified formulationSadaf Malhotra MD Work Phone: [facility] Payers DatePayer CategoryPayerPolicy [id number] 2024Self-pay 2024Medicare (Managed Care)[id number] [id number] [id number] 1960Unknown [id number] 2..1.570804.3.579.2. [id number] 2..1.162178.3.57[id number] 2.0.1.828580.3.57[id number] 2.0.1.314037.3.57[id number] 2.0.1.008973.3.57[id number] 2.0.1.432144.3.57[id number] 2.16.840.1.147711.3.57[id number] 2.16.840.1.690082.3.57[id number] 2.16.840.1.154742.3.57[id number] 2..840.1.118207.3.57[id number] 2.16.840.1.695222.3.579.2.1259UnknownAnthem /[id number] 0lqni1v8-89y1-465g-[id number]g No [id number]-[id number] 2.16.840.1.5[id number] 2.16.840.1.175674.3.579.2.531 Social History DateTypeDetailFacilityStart: 25-97-0793Wbktgca smoking status NHISNever smoked tobacco (finding)[facility] Hospitaltart: 90-15-3802Hhj Assigned At BirthDiley Ridge Medical Centertart: 42-94-3242Rhicwfn smoking status NHISTobacco smoking consumption unknownNOMS HealthcareStart: 1950 Sex assigned at birthNot on fileNOMS HealthcareStart: 05-30-2024 End: 86-38-9964Iroulk identityNot on fileNOMS HealthcareStart: 47-76-4926Blwsiuc smoking status NHISEx-smokerNOMS HealthcareHistory of tobacco useCurrent smoker N[facility]S HealthcareHistory of tobacco useCigarette SmokerNOMS HealthcareHistory of tobacco usePassive smokerNOMS HealthcareStart: 55-10-8467Tdbojng use and exposureSmokeless tobacco non-userNOMS HealthcareStart: 05-30-2024 End: 99-57-1812Qawyfczlj beverage intakeCurrent drinker of alcohol (finding)[facility] HealthcareStart: 05-30-2024 End: 76-70-1150Cewbrtt of Social functionNOWV HealthcareStart: 28-58-7311ZjsGvwo [facility] Clinical Notes 12-17-2021 to 05-28-2025 Note Date & HcbsIqogPwyqyrdw93-30-9227 History of Present illness Narrative* Sadaf Malhotra MD - 05/28/2025 9:40 AM EDT Subjective Patient ID: Karla Mccollum is a [...] debrided and med insufflated without complication. F/U [place] 2 weeks [1] Family History Problem Relation [...] file prior to visit. documented in this encounterPerry County Memorial HospitalSjorfrbgel12-73-8841 History of Present illness Narrative* Sadaf Malhotra MD - 04/24/2025 9:40 AM EDT Subjective Patient ID: Karla Mccollum is a [...] armpits, and groin 80 g 2 [DISCONTINUED] tzehggqr-mehrhbirw-wojvnkjzozkbiq (Cortisporin) 3.5-22063-3 otic suspension every 8 (eight) hours No [...] Image if growth perceived. documented in this encounterPerry County Memorial HospitalUktmjcvnyr54-34-9617 Telephone encounter Note* Telephone Encounter - Mirta Malhotra - 04/23/2025 2:13 PM EDT [facility] pt/told pt to stop the drops and made appt for him to come into office 04/24/25. [facility] Zrkiaqdkbp55-58-9359 Miscellaneous Notes* Telephone Encounter - Mirta Malhotra - 04/23/2025 2:13 PM EDT [facility] pt/told pt to stop the drops and made appt for him to come into office 04/24/25. * Telephone Encounter - Sadaf Malhotra MD - 04/23/2025 1:38 PM EDT F/U tomorrow. Stop drops * Telephone Encounter - Mirta Malhotra - 04/23/2025 1:04 PM EDT Pt called in to say that the ear drop that was prescribed joseph. It is the clotrimazole 1%. He alsonoticed the last couple of mornings he has had a small amount of blood on his pillowcase. documented in this encounterNOUniversity of Missouri Children's HospitalLfepinhwyx18-89-6537 History of Present illness Narrative* Sadaf Malhotra MD - 05/09/2025 8:30 AM EDT Subjective Patient ID: Karla Mccollum is a 75 y.o. male who presents for Lipoma of neck (6 month ultrasound [facility] 04/23/25) Pt states he is still having [...] layer to affected areas on the face oncea day, 30 day supply 90 g 11 [...] limiting use of topical meds. Repeat course ofdiflucan. F/U in [place] to try direct application of med if infection persists. documented in this encounterPerry County Memorial HospitalRxrqtyoxqi64-09-6861 Telephone encounter Note* Telephone Encounter - Sadaf Malhotra MD - 04/23/2025 1:38 PM EDT F/U tomorrow. Stop drops [facility] HospitalUgkggtacrk87-02-7552 Telephone encounter Note* Telephone Encounter - Mirta Malhotra - 04/23/2025 1:04 PM EDT Pt called in to say that the ear drop that was prescribed joseph. It is the clotrimazole 1%. He alsonoticed the last couple of mornings he has had a small amount of blood on his pillowcase. [facility] Ldkkuohgqy67-85-2204 History of Present illness Narrative* Sadaf Malhotra MD - 04/18/2025 1:10 PM EDT Images from the original note were not [...] armpits, and groin 80 g 2 [DISCONTINUED] eafzrymx-dtbrqntla-qrzglgqyajefyv (Cortisporin) 3.5-32158-4 otic suspension every 8 (eight) hours No [...] as well as diflucan. documented in this encounterPerry County Memorial HospitalTpdjmunbae08-69-7788 History of Present illness Narrative* Jacqui Guillen MD - 12/04/2024 9:30 AM EDT Images from the original note were not [...] lesions that fail to resolve should be re- evaluated. Cryotherapy performed today; see procedure note Diagnosis: Actinic keratosis Indication: Precancerous Location: see skin exam Consent: Verbal consent was obtained and risks were discussed, including, but not limited to risks of scarring, darker or hose handler pigmentary changes, recurrence, incomplete removal and infection. [...] benign pigmented lesions that occur on sun-exposed andsun-damaged skin. No treatment is necessary. Recommended regular [...] - Anterior, Right Lower Leg - Anterior [place] scaly plaques in areas of edema The patient was informed that stasis dermatitis is a chronic rash on the lower legs due to swellingoften caused by poor circulation. The patient was instructed to keep the legs elevated when seated,avoid standing for long periods of time, and [...] Next Visit: 1 year documented in this encounterPerry County Memorial HospitalTzgmadvxzg11-72-5772 NoteUT Cardiology - [facility] Subjective Karla Mccollum is a 74 [...] mg daily. He was admitted to the [facility] on 05/06/2023 with chest pain and uncontrolled [...] Affect: Mood normal. Be (more content not included)...[facility]10-15-2024 History of Present illness Narrative* Sadaf Malhotra MD - 05/30/2024 10:30 AM EDT Subjective Patient ID: Karla Mccollum is a 74 y.o. male who presents for Neck Mass ( FNA 05/15/24 [facility]) Pt reports that in the course of being evaluated for a left submandibular mass he was found to alsohave thyroid nodules. US of the submental mass shows a 03y19j0qz mass. FNA c/w a lipoma. Thyroid USshows a 34n99n7ul RT TR5 nodule and a 55z94x8is LT TR4 nodule. Path on each thyroid nodule was [place] 1. No known radiation exposure or family [...] tablet Take 100 mg by mouth Daily acnhbner-oeqzslery-lzsptkyubsikyc (Cortisporin) 3.5-47696-9 otic suspension every 8 (eight) hours omeprazole [...] and face appears atraumatic; Ear Ear comments: Arlen ears normal Nose External Nose: nares patent [...] Pt has an apparent submental lipoma and arlen thyroid nodules. I will follow with periodic US. If growth noted we will plan repeat bx, or removal documented in this encounterPerry County Memorial HospitalCbigmomluw01-61-9873 NoteUT Cardiology - [facility] Subjective Karla Mccollum [...] mg daily. He was admitted to the [facility] on 05/06/2023 with chest pain and uncontrolled [...] directed., Disp: 90 tablet, (more content not included)...[facility]05-04-2022 NoteCARDIAC STRESS TEST Requesting Physician: Procedure Date:12/17/2021 INDICATION: [...] read, interpreted and reported in a separate dictation.[facility]ighEvaluation noteNo assessment information availableCleveland Clinic Children[facility] Work Phone: Evaluation note* Diagnosis Nontoxic multinodular goiter (CMS/HCC)- Primary Nontoxic multinodular goiter Neck mass Swelling, mass, or lump in head and neck documented in this encounter [facility] HealthcareEvaluation note* Diagnosis Other seborrheic dermatitis- Primary Melanocytic nevus of trunk Benign neoplasm of skin of trunk, except scrotum Actinic keratosis Lentigines Stasis dermatitis of both legs documented in this encounter [facility] HealthcareEvaluation note* Diagnosis Chronic myringitis of left ear- Primary Other infective chronic otitis externa of left ear Foreign body of left ear, initial encounter documented in this encounter [facility] HealthcareEvaluation note* Diagnosis Chronic myringitis of left ear- Primary Other infective chronic otitis externa of left ear Perforation of left tympanic membrane Nontoxic multinodular goiter Nontoxic multinodular goiter Lipoma of neck documented in this encounter [facility] HealthcareEvaluation note* Diagnosis Chronic myringitis of left ear- Primary Other infective chronic otitis externa of left ear documented in this encounter [facility] HealthcareEvaluation note* Diagnosis Chronic myringitis of left ear- Primary documented in this encounter [facility] Healthcare Summary Purpose Family History Relationship Condition Age at Onset Recorded Date/T enma father Family history of lung cancer Unknown DeceasedUnknownMalignant neoplasmUnknownmotherHypertensionUnknown Advance Directives No Advanced Directives Records FoundNo Advanced Directives Records FoundNo Advanced Directives Records FoundNo Advanced Directives Records FoundNo Advanced Directives Records FoundNo Advanced Directives Records Found Hospital Course Note MR#: [id number] [facility] Pt. Name: Karla Mccollum Admitted: 10/09/2020 [...] in 2015, stress test was done in [place] (more content not included)... Additional Source Comments (unrecognized sect ion and content) No Status Records FoundNo Status Records FoundNo Status Records FoundNo Status Records FoundNo Status Records FoundNo Status Records Found INFORMATION SOURCE (unrecogn ized section and content) DATE CREATED AUTHOR 09/22/2020 [facility] DATE CREATED AUTHOR AUTHOR'S ORGANIZ ATION 10/15/2020 [facility] DATE CREATED AUTHOR AUTHOR'S ORGANIZ ATION 11/30/2022 [facility] DATE CREATED AUTHOR AUTHOR'S ORGANIZ ATION 05/20/2024 [facility] DATE CREATED AUTHOR AUTHOR'S ORGANIZ ATION 11/21/2024 [facility] DATE CREATED AUTHOR AUTHOR'S ORGANIZ ATION 05/29/2025 [facility] EPIC Care Teams (unrecognized sec tion and content) Team Status: Inactive Member Role Status Dates Hoa Tran MD Attending Provider Active Sta rt: May 15, 2024 End: May 15, 2024Team MemberRelationshipSpecialtyStart DateEnd Date Hoa Tran MD [address] [place] [address] PCP - GeneralFamily Qftnturn70/15/24Team MemberRelationshipSpecialtyStart Date End Date Hoa Tran MD [address] [place] [facility] [address] PCP - GeneralFamily Odlfeigj42/15/24Team MemberRelationshipSpecialtyStart Date End Date Hoa Tran MD [address] [place] [facility] [address] PCP - GeneralFamily Yxaiiege32/15/24Team MemberRelationshipSpecialtyStart Date End Date Hoa Tran MD [address] [place] [facility] [address] PCP - GeneralFamily Xplxxvda74/15/24Team MemberRelationshipSpecialtyStart Date End Date Hoa Tran MD [address] [place] [facility] [address] PCP - Generalmily Qlamctox36/15/24Team MemberRelationshipSpecialtyStart Date End Date Hoa Tran MD [address] [place] [facility] [address] PCP - GeneralFamily Medicine04/18/25Team MemberRelationshipSpecialtyStart DateEnd Date Hoa Tran MD [address] [place] [facility] [address] PCP - GeneralFamily Medicine04/18/25Team MemberRelationshipSpecialtyStart DateEnd Date Hoa Tran MD [address] [place] [facility] [address] PCP - GeneralFamily Medicine04/18/25Team MemberRelationshipSpecialtyStart DateEnd Date Hoa Tran MD [address] [place] [facility] [address] PCP - GeneralFamily Medicine04/18/25Team MemberRelationshipSpecialtyStart DateEnd Date Hoa Tran MD [address] [facility], [facility] PCP - GeneralFamily Medicine04/18/25Team MemberRelationshipSpecialtyStart DateEnd Date Hoa Tran MD [address] [facility], [facility] PCP - GeneralFamily Medicine04/18/25Team MemberRelationshipSpecialtyStart DateEnd Date Hoa Tran MD [address] [facility], [facility] PCP - GeneralFamily Medicine04/18/25Team MemberRelationshipSpecialtyStart DateEnd Date Hoa Tran MD [address] [facility], [facility] PCP - GeneralFamily Medicine04/18/25Team MemberRelationshipSpecialtyStart DateEnd Date Hoa Tran MD [address] [facility], [facility] PCP - GeneralFamily Medicine04/18/25 Goals (unrecognized section and content) Goals may be documented in a n alternate section Reason for Visit (unrecogniz ed section and content) ReasonCommentsNeck MassFNA 05/15/24 TBHReasonCommentsSkin CheckReasonComments Cerumen ImpactionReasonOnset DateCommentsear drops burn04/23/2025ReasonComments Ear ProblemEar dischargeReasonCommentsLipoma of neck6 month ultrasound [facility] 04/23/25ReasonCommentsEar ProblemLt ear follow up FOR RECORDS PERTAINING TO [...] BE BASED ON THE PRIMARY CLINICAL RECORDS. [facility]. provides no warranty or guarantee of the accuracy or completeness of information in this document.
--- OUTSIDE RECORDS SUMMARY | 2025-06-06 10:30 | XMS_ITS | Clinical Summary ---
Author Organization [facility] Address [address] [place], [place] [address] Care Team Providers Care Shelter Monitor Name Role Phone aCrlo Tran MD Primary Care Provider [phone] Allergies No known active allergies Medications MedicationSigDispense QuantityRefillsLast FilledStart DateEnd DateStatus ALYSSA 180 MG TAB one po bid 60 12009/11/2005ctive ZANTAC 150 MG TAB Take one(1) tablet two(2) times daily. 60 12009/11/2005ctive DOXEPIN 10 MG CAP one - three po qhs 90 301ctive ALYSSA 180 MG TAB one po qd 30 ctive ALBUTEROL SULFATE 4 MG TAB one po bid 60 ctive desloratadine (CLARINEX) 5 mg ORAL Tab Indications:Idiopathic urticariaTake one(1) tablet by mouth two times a day 60 ctive Active Problems ProblemNoted DateDiagnosed DateIdiopathic agzbgmbkj16/01/2007 Social History Tobacco UseTypesPacks/DayYears UsedDateSmoking Tobacco: Never AssessedSex and Gender InformationValueDate RecordedSex Assigned at BirthNot on fileLegal Sex Male07/17/2012 7:34 AM ESTGender IdentityNot on fileSexual OrientationNot on file Last Filed Vital Signs Vital SignReadingTime TakenCommentsBlood Iopijygc009/8602 12:45 PM EST Xcyth210110/09/2005 12:45 PM TRKXxtqhrtkiau23 ??C (98.6 ??F)10/09/2005 12:45 PM ESTRespiratory Rate--Oxygen Saturation--Inhaled Oxygen Concentration--Weight 102.1 kg (225 lb)10/09/2005 12:45 PM FRBDegcsg709.8 cm (5' 10 )10/09/2005 12:45 PM ESTBody Mass Index32.28010/09/2005 12:45 PM EST Plan of Treatment Health MaintenanceDue DateLast DoneCommentsAnxiety Ftdjbpatb05/28/1969Depression Qaasmydom14/28/1969Hepatitis C Lkfplxzux05/28/1969DTaP,Tdap,Td Vaccine (1 - Tdap)1970Lipid Lgbhgxmgd78/28/1986CT Omasifzotfnw97/28/1996Cologuard (FIT-DNA)04/12/19965592Jbfympeptsk43/28/1996Colorectal Cancer Inupbjgrr51/28/1996 Fecal Occult Blood04/12/19964153Cxrmxlnyqdwwr36/28/1996Pneumococcal Vaccine: 50+ (1 of 1 - PCV)2001Shingrix Vaccine (1 of 2)2001Diabetes Screening dvance Directive Fhazhbbwml22/01/2025ovid-19 Vaccine (1 - 2024- season)2025Influenza Vaccine (#1)2025RSV Vaccine (1 - 1-dose 75+ series)2026 Procedures Procedure NamePriorityDate/TimeAssociated DiagnosisCommentsCOMPREHENSIVE METABOLIC BGOOONinftgs15/27/2006 2:27 PM EST Idiopathic Urticaria from Last 3 Months or Most Recently Relevant to Health Maintenance Results * COMP METABOLIC PANEL (09/11/2005 2:27 PM EST)ComponentValueRef RangeTest MethodAnalysis TimePerformed AtPathologist SignatureProtein, Total7.16.0 - 8.4 g/dLLAKEHE[facility] LABAlbumin4.33.5 - 5.0 g/dLLAKEHEALTH [facility]IPOINT [facility] LABCalcium9.5 8.5 - 10.5 mg/dLLAKEHEALTH TRIPOINT [facility]ICAL [facility] LABBilirubin, Total0.30.0 - 1.5 mg/dL [facility] LABAlkaline Rfnpclxonow5438 - 150 U/LCSOUTHERN [facility] LABAST 207 - 40 U/LCSOUTHERN [facility] YWNJupapme0860 - 100 mg/dLLAKEHEALTH [facility] LABBUN 1510 - 25 mg/dLLAKEHEALTH [facility] LABCreatinine1.00.7 - 1.4 mg/dLLAKEHEALTH [facility]OINT [facility] KGMKkgxuk527733 - 146 mmol/LCOHIO [facility]AND CLINIC LABPotassium4.43.5 - 5.0 mmol/LCOHIO STATE [facility]AND CLINIC QAQNlktyxmi02812 - 110 mmol/LCOHIO STATE [facility]AND CLINIC SQUKE312 23 - 32 mmol/LCOHIO STATE [facility]IC LABAnion Aqv516 - 15 mmol/LCOHIO STATE UN[facility]ENTERAND [facility] LAB FSH898 - 50 U/LCGRE[facility] LABSpecimen (Source)Anatomical Location / LateralityCollection Method / VolumeCollection TimeReceived TimeBlood specimen (specimen)BLOOD SPECIMEN / Ivotxdp6609/11/2005 2:27 PM EST Narrative Authorizing ProviderResult TypeResult StatusCristine Theresa WARDLABORATORYFinal ResultPerforming OrganizationAddressCity/State/ZIP CodePhone Number [facility] [address] [place] [address] from Last 3 Months or Most Recently Relevant to Health Maintenance Insurance Care Teams Team MemberRelationshipSpecialtyStart DateEnd Carlo Tran MD PCP - General08/24/05
--- OUTSIDE RECORDS SUMMARY | 2025-06-06 10:30 | XMS_ITS | Clinical Summary ---
Author Organization [facility] Address [address], [address] [place] [address] Care Team Providers Care Target Developer Name Role Phone Carlo Tran MD Primary Care Provider [phone] Allergies No known active allergies Medications MedicationSigDispense QuantityRefillsLast FilledStart DateEnd DateStatus fenofibrate (TRICOR) 145 MG tablet Active atorvastatin (LIPITOR) 20 MG tablet take 1 tablet by mouth once aqhog279Active isosorbide mononitrate (IMDUR) 30 MG extended release tablet Active omeprazole (PRILOSEC) 40 MG delayed release capsule omeprazole 40 mg capsule,delayed releaseActive carvedilol (COREG) 25 MG tablet take 1 tablet by mouth twice a rly431Active amLODIPine (NORVASC) 10 MG tablet amlodipine 10 mg bmdimp4506/01/2017Active gabapentin (NEURONTIN) 100 MG capsule Take 1 capsule by mouth 3 times daily for 30 days. 90 capsule 05/12/2019Active baclofen (LIORESAL) 10 MG tablet baclofen 10 mg tabletActive predniSONE (DELTASONE) 10 MG tablet prednisone 10 mg tabletActive rosuvastatin (CRESTOR) 5 MG tablet rosuvastatin 5 mg tabletActive sildenafil (VIAGRA) 100 MG tablet Active Family History Medical HistoryRelationNameCommentsArthritisMotherHeart DiseaseMotherHigh Blood PressureMotherRelationNameStatusCommentsMother Social History Tobacco UseTypesPacks/DayYears UsedDateSmoking Tobacco: NeverSmokeless Tobacco: FormerAlcohol UseStandard Drinks/WeekCommentsYes0 (1 standard drink = 0.6 oz pure alcohol)AUDIT-CAnswerDate RecordedFrequency of Alcohol ConsumptionMonthly or less06/04/2019Average Number of DrinksNot on file06/04/2019Frequency of Binge DrinkingNot on file06/04/2019Sex and Gender InformationValueDate RecordedSex Assigned at BirthNot on fileLegal RtrQtxf2403/30/2019 12:04 PM EDTGender Identity Not on fileSexual OrientationNot on file Last Filed Vital Signs Vital SignReadingTime TakenCommentsBlood Pressure--Pulse--Fuxqkrbexcw60.5 ??C (95.9 ??F)05/12/2019 11:09 AM EDTRespiratory Rate--Oxygen Saturation--Inhaled Oxygen Concentration--Pawfaq975.9 kg (240 lb)05/12/2019 11:09 AM ADTZzbcom949.8 cm (5' 10 )05/12/2019 11:09 AM EDTBody Mass Index34.44005/12/2019 11:09 AM EDT Plan of Treatment Not on file Insurance [address] [place] [address] Care Teams Team MemberRelationshipSpecialtyStart DateEnd Carlo Tran MD [address] [place] [address] PCP - GeneralFamily Medicine04/04/19
--- OUTSIDE RECORDS SUMMARY | 2025-06-06 10:30 | XMS_ITS | Clinical Summary ---
Author Organization [facility] Healthcare Address [address] [place] [address] Care Team Providers Care Building Insulation Installer Name Role Phone Carlo Tran MD Primary Care Provider [phone] Allergies No known active allergies Medications MedicationSigDispense QuantityRefillsLast FilledStart DateEnd DateStatus amLODIPine (Norvasc) 10 MG tablet Take 10 mg by mouth DailyActive aspirin 81 MG EC tablet in the morning.Active atorvastatin (Lipitor) 40 MG tablet Take 40 mg by mouth in the morning.Active ezetimibe (Zetia) 10 MG tablet 08/17/2023ctive fenofibrate (Tricor) 145 MG tablet Take 145 mg by mouth DailyActive irbesartan (Avapro) 150 MG tablet Take 150 mg by mouth DailyActive isosorbide mononitrate ER (Imdur) 120 MG 24 hr tablet Take 120 mg by mouth4Active metoprolol succinate XL (Toprol-XL) 100 MG 24 hr tablet Take 100 mg by mouth DailyActive omeprazole (PriLOSEC) [address] capsule Active ranolazine (Ranexa) 1000 MG 12 hr tablet Take 1 tablet by mouth in the morning and 1 tablet before bedtime.Active meloxicam (Mobic) 15 MG tablet 1 (one) time each day at the same time5Active nitroglycerin (Nitrostat) 0.4 MG SL tablet DISSOLVE 1 TABLET UNDER THE TONGUE NEEDED FOR CHEST PAIN- MAY REPEAT EVERY 5 MINUTES IF NEEDED (MAX 3 DOSES.- IF NO RELIEF CALL 911)5Active liothyronine (Cytomel) 5 MCG tablet Take by mouth DailyActive tamsulosin (Flomax) 0.4 MG 24 hr capsule Take 0.4 mg by mouth DailyActive fluconazole (Diflucan) 100 MG tablet Indications:Chronic myringitis of left ear,Other infective chronic otitis externa of left ear2 pills day one and then one pill daily for 13 days 15 tablet 05/09/2025tive Ciclopirox 1 % shampoo Indications:Other seborrheic dermatitisLather on wet hair and slade, leave on 5 min, rinse 2-3 x week, 30 day supply 120 mL 110Discontinued(Therapy completed) ciclopirox (Loprox) 0.77 % cream Indications:Other seborrheic dermatitisApply thin layer to affected areas on the face once a day, 30 day supply 90 g 110Discontinued(Therapy completed) triamcinolone (Kenalog) 0.1 % cream Indications:Stasis dermatitis of both legsApply to affected areas on the legs bid when flared. Avoid the face, armpits, and groin 80 g Discontinued(Therapy completed) clotrimazole (Lotrimin) 1 % external solution Indications:Chronic myringitis of left ear,Other infective chronic otitis externa of left ear4 drops to left ear 2 times daily for 10 days 10 mL Discontinued(Therapy completed) fluconazole (Diflucan) 100 MG tablet Indications:Chronic myringitis of left ear,Other infective chronic otitis externa of left ear2 pills day one and then one pill daily for 13 days 15 tablet Discontinued Active Problems ProblemNoted DateDiagnosed DateAbnormal finding of diagnostic esjxdsv0805/09/2025 Hesitancy of zfcglupdylm50/24/2025History of total left hip replacement 05/09/20250207Cwfiy06/24/2025Impacted fezzypg6005/09/2025Intestinal malabsorption 05/09/2025Iron deficiency kuullt3005/09/2025Morbid rhdwgij6105/09/2025Obstructive sleep apnea05/09/2025Primary localized osteoarthrosis of shoulder region 05/09/2025Pulmonary hbvytbbgcjem55/24/2025Thyroid mladox8105/09/2025 Arteriosclerosis of coronary fdeiku2011/08/2024Multiple gouty tophi05/30/2024 Nontoxic multinodular vlqnee8605/30/2024Neck mass05/30/2024ardiovascular stress test tlpzivwt06/20/2023hest pain09/04/2022iverticular uaievdz4409/04/2022 Jtbtviyiaxzpoiu49/20/2023Hypertensive left ventricular fbjqtbusplg31/20/2023 Hauxkbznguryrjiqcmne36/20/2023Hx of total shoulder replacement, left10/27/2021 Pamqmsxlpdim60/23/2018Essential tedyxtdkilhp41/23/2018Gastroesophageal reflux 12/06/2017 Encounters DateTypeDepartmentCare WefrLhdkqcyblyw67/13/2025 9:40 AM EDTOffice Visit [facility] [address] [place] [address] Rodri Ashford MD Chronic myringitis of left ear (Primary Dx)05/28/2025[facility] flowsheet [facility] [address] [place] [address] Rodri Ashford MD 05/28/20255593Krgufp06/24/2025 8:30 AM EDTOffice Visit [facility] [place] [facility] [address] [facility] [address] [place] [address] Rodri Ashford MD Chronic myringitis of left ear (Primary Dx); Other infective chronic otitis externa of left ear05/09/2025[facility] flowsheet [facility] [address] [facility] [address] [place] [address] Rodri Ashford MD 05/09/20251183Vgsoob75/09/2025 9:40 AM EDTOffice Visit [facility] [address] [facility] [address] [place] [phone] Rodri Ashford MD Chronic myringitis of left ear (Primary Dx); Other infective chronic otitis externa of left ear; Perforation of left tympanic membrane; Nontoxic multinodular goiter ; Lipoma of neck09/09/2025Bamboo flowsheet [facility] [address] [facility] [address] [place] [address] Rodri Ashford MD 04/24/20259784Vvpmki13/08/2025Telephone [facility] [address] [facility] [address] [place] [address] Rodri Ashford MD ear drops burn04/23/2025linisync Result Encounter [facility] External Department Unsolicited Rodri Ashford MD 04/18/2025 1:10 PM EDTOffice Visit [facility] [place] [facility] [address] [facility] [address] [place] [address] Rodri Ashford MD Chronic myringitis of left ear (Primary Dx); Other infective chronic otitis externa of left ear; Foreign body of left ear, initial srpefhjyu26/03/2025amboo flowsheet [facility] [address] [facility] [address] [place] [address] Rodri Ashford MD 04/18/2025Travelfrom Last 3 Months Immunizations ImmunizationAdministration DatesNext DueInfluenza, High Dose Seasonal, Preservative Free05/29/2020,05/31/2017Influenza, Seasonal, Quadrivalent, Arkxoqavdl36/18/2023Influenza, Qovpxymsrlf61/31/2016Influenza, trivalent, hzsuqmbfox39/06/2024,05/26/2021,05/17/2020Pneumococcal Conjugate PCV 20 3Pneumococcal Polysaccharide [id number], recombinant, protein subunit RSVpreF, adjuvant reconstitu, 120mcg/0.5mL, PF (Arexvy)05/18/2023Zoster, Vihoencnjfk64/15/2020,05/28/2020 Family History Medical HistoryRelationNameCommentsMelanomaBrotherCancerFatherHeart failure MotherRelationNameStatusCommentsBrotherFatherDeceasedMotherDeceased Social History Tobacco UseTypesPacks/DayYears UsedDateSmoking Tobacco: FormerCigarettesPassive Smoke Exposure: PastSmokeless Tobacco: Never Tobacco Cessation:Counseling Given: Not Answered Alcohol UseStandard Drinks/WeekCommentsYes1 (1 standard drink = 0.6 oz pure alcohol)Sex and Gender InformationValueDate RecordedSex Assigned at BirthNot on fileLegal GhxVurw7410/28/2022 7:13 PM EDTGender IdentityNot on fileSexual OrientationNot on file Last Filed Vital Signs Vital SignReadingTime TakenCommentsBlood Uujahogf891/7105/28/2025 9:22 AM EDT Mtlpt542805/28/2025 9:22 AM EDTTemperature--Respiratory Rate--Oxygen Saturation-- Inhaled Oxygen Concentration--Ndwqcg971 kg (246 lb)05/28/2025 9:22 AM EDTHeight 177.8 cm (5' 10 )05/28/2025 9:22 AM EDTBody Mass Index35.310 9:22 AM EDT Plan of Treatment DateTypeDepartmentCare Team (Latest Contact Info)Uiqoewgrgjh12/27/2025 1:00 PM EDTOffice Visit [facility] [address] [place] [address] Rodri Ashford MD [address] [facility] [address] [place] [address] 12/04/2025 9:35 AM EDTOffice Visit [facility] [place] [facility] [address] [place] [address] Jacqui Mensah MD [address] [place] [address] 04/24/2026 8:00 AM EDTOffice Visit [facility] [place] [facility] [address] [facility] [address] [place] [phone] Rodri Ashford MD 112 [facility] [address] [place] [address] Health MaintenanceDue DateLast DoneCommentsCT Pkypljqqkktu1950Colonoscopy 1Colorectal Cancer Orsuwfcuc1951FIT-DNA1951FIT1950 FOBT1950 8450Miwrbtklrusgp1951Influenza Vaccine (#1)5108/21/2023, 05/03/2023, 05/26/2021, Additional history existsPneumococcal Vaccine: 65+ Years Yrbuxfcni80/18/2023, 11/09/2016 Procedures Procedure NamePriorityDate/TimeAssociated DiagnosisCommentsUS MRCDKQA7504/23/2025 9:35 AM EDT from Last 3 Months Results * US thyroid (04/23/2025 9:35 AM EDT)Anatomical RegionLateralityModalityHead, NeckUltrasoundSpecimen (Source)Anatomical Location / LateralityCollection Method / VolumeCollection TimeReceived Time04/23/2025 9:35 AM EDT Narrative 04/23/2025 9:[address] [facility] ?[address] ? [place] [address] ? Ultrasound Report ? Signed ? Patient: BRANDON MCCOLLUM ?MR#: [id number] ?? : 1950 ?Acct:[id number] ?? Age/Sex: 75 / M ?ADM Date: 04/23/25 ?? Loc: US ? Attending Dr: Rodri Ashford M.D. ? Ordering Physician: Rodri Ashford M.D. ?? Date of Service: 04/23/25 ?? Procedure(s): US thyroid ?? Accession Number(s): [id number] ? cc: Carlo Tran M.D.; Rodri Ashford M.D. ? [facility] ? [address] ? [place] [address] ? Patient Name: ?? BRANDON Celestine MCCOLLUM ? MRN: [id number] ? date: 1950 ?Sex: M ?? Assigned Patient Location: US ?? Current Patient Location: US ?? Accession/Order Number: [id number] ?? Exam Date: 04/23/2025 ??08:47 ?Report Date: 04/23/2025 ??09:35 ? At the request of: ?? RODRI ??TIMMIS ??MD ? Procedure: ??US thyroid ? THYROID ULTRASOUND ? COMPARISON: 10/30/2024 and 05/05/2024 ? CLINICAL DATA: Follow-up multinodular goiter ? The right thyroid lobe measures 4.4 x 1.5 x 1.8 cm. ??The left lobe measures ?? 4.1 x 1.3 x 1.6 cm. ??The isthmus measures 6 mm. ??Thyroid echotexture is mildly ?? heterogeneous. ??At the superior pole the right, there is still a hypoechoic ?? nodule measuring 4 x 5 x 5 mm. ??A nodule at the lower pole on the prior is not ?? seen today. ??On the left, additional small hypoechoic nodules are again seen. ? There are 2 hypoechoic nodules in close proximity the superior pole measuring ?? 7 x 4 x 4 mm and 4 x 3 x 4 mm . At the inferior pole, there is another ?? hypoechoic nodule that measures 7 x 5 x 5 mm. ? US/US thyroid ?? IMPRESSION: ? CONTINUED SUBCENTIMETER BILATERAL THYROID NODULES, GREATER ON THE LEFT. ? Impression dictated by: Tonie [facility] M.D. ??04/23/2025 9:35 AM ? Dictation Location: RADIO-PC-30 ? Electronically authenticated by: [id number] ??Y ?? Date: 04/23/2025 ??09:35 ? Dictated By: ?Tonie [facility] M.D. ? Signed By: ?04/23/25 0938 ? DD/ 0935 ? TD/TT: ? Collection Technician: Procedure Note Radiology, Radiologist, - 04/23/2025 [place] [address] Ultrasound Report Signed Patient: BRANODN MCCOLLUM EMR#: [id number] : 1950cct:[id number] Age/Sex: 75 / MADM Date: 04/23/25 Loc: US Attending Dr: Rodri Ashford M.D. Ordering Physician: Rodri Ashford M.D. Date of Service: 04/23/25 Procedure(s): US thyroid Accession Number(s): [id number] cc: Carlo Tran M.D.; Rodri Ashford M.D. The [place] [id number] Patient Name: BRANDON MCCOLLUM MRN: [id number] date: 1950 Sex: M Assigned Patient Location: US Current Patient Location: US Accession/Order Number: [id number] Exam Date: 04/23/2025 08:47 Report Date: 04/23/2025 [...] Baldwin M.D. 04/23/2025 9:35 AM Dictation Location: [place] [address] Electronically authenticated by: [id number] Y Date: 9:35 Dictated By: Tonie [facility] M.D. Signed By:04/23/2538 DD/ TD/TT: Collection Technician: Authorizing ProviderResult TypeResult StatusHilary Aylin MOHR US PROCEDURES Final Result from Last 3 Months Insurance * Guarantor: Brandon Mccollum EAccount TypeRelation to PatientDate of BirthPhone Billing AddressPersonal/NadcufLffd1950 [address] [address] Care Teams Team MemberRelationshipSpecialtyStart Date Carlo Tran MD [address] [place] [address] PCP - GeneralFamily Medicine04/18/25
--- OUTSIDE RECORDS SUMMARY | 2025-06-06 10:30 | XMS_ITS | Clinical Summary ---
Author Organization [facility] Address [address] [place] [address] Care Team Providers Care Sephora Product Consultant Name Role Phone Carlo Tran MD Primary Care Provider [phone] Allergies No known active allergies Medications MedicationSigDispense QuantityRefillsLast FilledStart DateEnd DateStatus aspirin 81 mg EC tablet in the morning.Active omeprazole (PriLOSEC) [address] capsule omeprazole 40 mg capsule,delayed release take 1 capsule by mouth once dailyActive fenofibrate (Tricor) 145 mg tablet Indications:Coronary artery disease, unspecified vessel or lesion type, unspecified whether angina present, unspecified whether [place]giak or transplanted heartTake 1 tablet (145 mg) by mouth in the morning. 90 tablet ctive oxaprozin (Daypro) 600 mg tablet 600 mg if needed each day.Active ranolazine (Ranexa) 1,000 mg 12 hr tablet Take 1,000 mg by mouth in the morning and at bedtime. Do not crush, chew, or split.Active metoprolol succinate XL (Toprol-XL) 100 mg 24 hr tablet Take 100 mg by mouth in the morning. Do not crush or chew.Active isosorbide mononitrate ER (Imdur) 120 mg 24 hr tablet Indications:Coronary artery disease, unspecified vessel or lesion type, unspecified whether angina present, unspecified whether togiak or transplanted heartTake 1 tablet (120 mg) by mouth once daily as directed. 90 tablet 5Active atorvastatin (Lipitor) 40 mg tablet Indications:Hyperlipidemia, unspecified hyperlipidemia typeTake 1 tablet (40 mg) by mouth in the morning. 90 tablet ctive ezetimibe (Zetia) 10 mg tablet Indications:Mixed hyperlipidemia,Coronary artery disease involving togiak coronary artery of togiak heart without angina pectorisTake 1 tablet (10 mg) by mouth in the morning. 90 tablet 506Active amLODIPine (Norvasc) 10 mg tablet Indications:Coronary artery spasmTake 1 tablet (10 mg) by mouth once daily as directed. 90 tablet 5Active Additional Information Patient not taking.Reported on 11/20/2024 irbesartan (Avapro) 150 mg tablet Indications:Coronary artery disease, unspecified vessel or lesion type, unspecified whether angina present, unspecified whether to[place] or transplanted heartTake 1 tablet (150 mg) by mouth once daily as directed. 90 tablet 5Active hydrOXYzine HCL (Atarax) 25 mg tablet Take 1 tablet by mouth every 6 (six) hours.4Active methocarbamol (Robaxin) 750 mg tablet Take 750 mg by mouth three times daily.4Active oxyCODONE-acetaminophen (Percocet) 5-325 mg tablet Take 1 tablet by mouth every 4 (four) hours if needed.4Active phentermine (Adipex-P) 37.5 mg tablet Take 37.5 mg by mouth before breakfast.07/21/2024ctive tiZANidine (Zanaflex) 4 mg tablet Take 4 mg by mouth every 6 (six) hours if needed.07/31/2024ctive tamsulosin (Flomax) 0.4 mg 24 hr capsule Take 1 capsule by mouth in the morning.5Active nitroglycerin (Nitrostat) 0.4 mg SL tablet Indications:Coronary artery spasmnitroglycerin 0.[address] 1 tablet under the tongue if needed every 5 minutes for darshan... (REFER TO PRESCRIPTION NOTES). 25 tablet 5Active Active Problems ProblemNoted DateDiagnosed DateMultiple gouty tophi05/30/2024Neck mass05/30/2024 Nontoxic multinodular kikina6605/30/2024ardiovascular stress test abnormal 09/04/2022hest pain09/04/2022oronary artery spasm09/04/2022iverticular lbqequy5909/04/20222765Avhliklkvzcceyo07/20/2023Hypertensive left ventricular jnymvggjbhg58/20/2075Phncsybmtzkweuzqwmbx04/20/2023Osteoarthritis of left ulcbfekr03/20/4966Pjqtlseajdi35/20/2023Hx of total shoulder replacement, left 10/27/2021tatus post total hip replacement, left12/21/2017Dyslipidemia 12/06/2017Hypertensive dyhmywqr44/23/2018Gastroesophageal lzfdbu2712/06/2017 Obstructive sleep apnea on CPAP12/06/2017Iron deficiency anemia, unspecified 11/23/2017Iron uyqdodwmpsnfm08/10/2018Idiopathic bzezmoruv18/01/2007 Immunizations ImmunizationAdministration DatesNext DueInfluenza, High Dose Seasonal, Preservative Free05/29/2020,05/31/2017Influenza, Wyksrdyfjem86/31/2016Influenza, trivalent, yunwpnwayh24/11/2021,05/17/2020Pneumococcal Polysaccharide PPV23 11/09/2016Unspecified Sars-Cov-2 Ebcrskdylhg10/04/2022,06/09/2021,10/21/2020, 09/23/2020Zoster, Ntkucqpkojq39/15/2020,05/28/2020 Family History Medical HistoryRelationNameCommentsCancerFatherHypertensionMotherRelationName StatusCommentsBrotherAliveFatherDeceasedMotherDeceasedSisterAlive Social History Tobacco UseTypesPacks/DayYears UsedDateSmoking Tobacco: FormerCigarettes Smokeless Tobacco: Never Tobacco Cessation:Counseling Given: Not Answered Alcohol UseStandard Drinks/WeekCommentsYes0 (1 standard drink = 0.6 oz pure alcohol)4 to 5 per weekUT Safety & EnvironmentAnswerDate RecordedFear of Current or Ex-PartnerNot on file10/07/2023Emotionally AbusedNot on file10/07/2023 Physically AbusedNot on file10/07/2023Sexually AbusedNot on file10/07/2023 Physically or Sexually AbusedNot on file10/07/2023Sex and Gender Information ValueDate RecordedSex Assigned at BirthNot on fileLegal MntSghj1702/11/2022 9:35 PM EDTGender IdentityNot on fileSexual OrientationNot on file Last Filed Vital Signs Vital SignReadingTime TakenCommentsBlood Eshmcqby659/7104 11:32 AM EDT Vyffk1977 11:32 AM EDTTemperature--Respiratory Rate--Oxygen Saturation 99%11/20/2024 11:32 AM EDTInhaled Oxygen Concentration--Wepwzh728 kg (242 lb) 11/20/2024 11:32 AM LKILlkscz825.8 cm (5' 10 )11/20/2024 11:32 AM EDTBody Mass Index34.72011/20/2024 11:32 AM EDT Plan of Treatment Health MaintenanceDue DateLast DoneCommentsCT Ytdpvqnmcomp1951olonoscopy 1950olorectal Cancer Wuysjmrjc1951FIT-DNA1950FIT1950 FOBT1950Medicare Annual Wellness (AWV)1950 9303Tluxfworpcpyo1951 Depression Wjxaltnxm36/28/1963Adult Jfiunca9004/12/1973Fall Risk Screening 2016COVID-19 Vaccine ( season)5110/12/2023, 05/18/2023, 12/17/2021, Additional history existsInfluenza Vaccine (#1) 5005/03/2023, 05/26/2021, 05/29/2020, Additional history existsZoster FohkdvayOnmxcpzaj98/15/2020, 05/28/2020Pneumococcal Vaccine: 50+ YearsCompleted 05/03/2023, 11/09/2016HIB VaccinesAged OutNo longer eligible based on patient's age to complete this topicHPV VaccinesAged OutNo longer eligible based on patient's age to complete this topicIPV VaccinesAged OutNo longer eligible based on patient's age to complete this topicMeningococcal B VaccineAged OutNo longer eligible based on patient's age to complete this topicMeningococcal VaccineAged OutNo longer eligible based on patient's age to complete this topicRotavirus VaccinesAged OutNo longer eligible based on patient's age to complete this topic Insurance Care Teams Team MemberRelationshipSpecialtyStart DateEnd Carlo Tran MD [address] [facility] [place] [address] PCP - General09/02/22
--- OUTSIDE RECORDS SUMMARY | 2025-06-06 10:30 | XMS_ITS | Encounter Summary ---
Author Organization [facility] Address [address] [place] [address] Care Team Providers Care Consulting Systems Engineer Name Role Phone Carlo Tran MD Primary Care Provider [phone] Encounter Details DateTypeDepartmentCare Team (Latest Contact Info)Qionhlmglya43/13/2025amboo flowsheet [facility] [address] [place] [address] Sadaf Ashford MD [address] [place] [address] Social History Tobacco UseTypesPacks/DayYears UsedDateSmoking Tobacco: FormerCigarettesPassive Smoke Exposure: PastSmokeless Tobacco: NeverAlcohol UseStandard Drinks/Week CommentsYes1 (1 standard drink = 0.6 oz pure alcohol)Sex and Gender Information ValueDate RecordedSex Assigned at BirthNot on fileLegal KrwHefb7910/28/2022 7:13 PM EDTGender IdentityNot on fileSexual OrientationNot on filedocumented as of this encounter Plan of Treatment DateTypeDepartmentCare Team (Latest Contact Info)Gsnphmhfdkf19/27/2025 1:00 PM EDTOffice Visit [facility] [address] [place] [address] Sadaf Ashford MD [address] [place], [place] [address] 12/04/2025 9:35 AM EDTOffice Visit [facility] [address] [place] [address] Jacqui Mensah MD [address] [place] [address] 04/24/2026 8:00 AM EDTOffice Visit [facility] [place] [facility] [address] [facility] [address] [place] [address] Sadaf Ashford MD [address] [facility] [address] [place] [address] documented as of this encounter Visit Diagnoses Not on filedocumented in this encounter Care Teams Team MemberRelationshipSpecialtyStart DateEnd Date Carlo Tran MD [address] [facility] [place] [address] [phone] PCP - GeneralFamily Medicine04/18/25documented as of this encounter
--- OUTSIDE RECORDS SUMMARY | 2025-06-06 10:30 | XMS_ITS | Encounter Summary ---
Author Organization [facility] Address [address] [place] [address] Care Team Providers Care Powder And Primer Canning Leader Name Role Phone Carlo Tran MD Primary Care Provider [phone] Encounter Details DateTypeDepartmentCare Team (Latest Contact Info)Odiismfarfe45/13/2025Travel Social History Tobacco UseTypesPacks/DayYears UsedDateSmoking Tobacco: FormerCigarettesPassive Smoke Exposure: PastSmokeless Tobacco: NeverAlcohol UseStandard Drinks/Week CommentsYes1 (1 standard drink = 0.6 oz pure alcohol)Sex and Gender Information ValueDate RecordedSex Assigned at BirthNot on fileLegal FxoJpbo0210/28/2022 7:13 PM EDTGender IdentityNot on fileSexual OrientationNot on filedocumented as of this encounter Plan of Treatment DateTypeDepartmentCare Team (Latest Contact Info)Irlkmunymjr22/27/2025 1:00 PM EDTOffice Visit [facility] [address] [place] [address] Sadaf Ashford MD [address] [place] [address] 12/04/2025 9:35 AM EDTOffice Visit [facility] [place] [facility] [address] [place] [address] Jacqui Mensah MD [address] [place] [address] 04/24/2026 8:00 AM EDTOffice Visit [facility] [address] [place] [address] Sadaf Ashford MD [address] [facility] [address] [place] [address] documented as of this encounter Visit Diagnoses Not on filedocumented in this encounter Care Teams Team MemberRelationshipSpecialtyStart DateEnd Date Carlo Tran MD [address] [place] [address] PCP - GeneralFamily Medicine04/18/25documented as of this encounter
--- OUTSIDE RECORDS SUMMARY | 2025-06-06 10:30 | XMS_ITS | Clinical Summary ---
Author Organization [facility] Address [address] [facility] [place] [address] Phone Care Team Providers Care Portable Canteen Operator Name Role Phone Unavailable Primary Care Provider Unavailabl e Social History Tobacco UseTypesPacks/DayYears UsedDateSmoking Tobacco: Never AssessedSex and Gender InformationValueDate RecordedSex Assigned at BirthNot on fileLegal Sex Male07/10/2022 9:40 AM ESTGender IdentityNot on fileSexual OrientationNot on file Plan of Treatment Not on file
--- OUTSIDE RECORDS SUMMARY | 2025-06-06 10:30 | XMS_ITS | Clinical Summary ---
Author Organization Thounds tem Address [id number] [address] [place] [address] Care Team Providers Care Vice President Of Customer Service Name Role Phone Carlo Tran MD Primary Care Provider [phone] Allergies No known active allergies Medications MedicationSigDispense QuantityRefillsLast FilledStart DateEnd DateStatus amLODIPine (NORVASC) 10 mg tablet Indications:hypertensionTake 10 mg by mouth daily Indications: high blood pressure. 06/01/2017Active fenofibrate (TRICOR) 145 mg tablet Indications:hyperlipidemiaTake 145 mg by mouth daily Indications: excessive fat in the blood. Active omeprazole (PriLOSEC) 40 mg capsule Indications:gastroesophageal reflux diseaseTake 40 mg by mouth every morning before breakfast Indications: gastroesophageal reflux disease. Active atorvastatin (LIPITOR) 20 mg tablet Indications:mixed hyperlipidemiaTake 20 mg by mouth daily Indications: high cholesterol and high triglycerides. Active acetaminophen (TYLENOL) 500 mg tablet Take 1,000 mg by mouth every 6 (six) hours as needed for pain. Active aspirin 81 mg Indications:myocardial infarction preventionTake 81 mg by mouth daily Indications: treatment to prevent a heart attack. Active irbesartan (AVAPRO) 150 mg tablet Indications:hypertensiondaily Indications: high blood pressure. Active carvediloL (COREG) 6.25 mg tablet Indications:hypertensionTake 6.25 mg by mouth 2 (two) times a day with meals Indications: high blood pressure.Active isosorbide mononitrate (IMDUR) 120 mg 24 hr tablet Indications:prevention of anginal pain in coronary artery diseaseTake 120 mg by mouth daily Indications: prevention of anginal chest pain associated with coronary artery disease.Active ferrous sulfate 325 (65 FE) mg tablet Indications:iron deficiency anemiaTake 325 mg by mouth daily with breakfast Indications: anemia from inadequate iron.Active traMADoL (ULTRAM) 50 mg tablet Indications:Primary osteoarthritis of left shoulderTake 1 tablet (50 mg total) by mouth every 6 (six) hours as needed for pain for up to 28 doses. 28 tablet 1Active Additional Information Patient not taking.Reported on 10/27/2021 Active Problems ProblemNoted DateDiagnosed DateHx of total shoulder replacement, left10/27/2021 Status post total hip replacement, left12/21/2017Obstructive sleep apnea on CPAP 12/06/2017Essential gbumvmkhikbb93/23/2018Gastroesophageal yhktln9512/06/2017 Wmvsmggvrzdu00/23/2018Iron deficiency anemia, kdjiewvntha68/10/2018Iron opakqjovubfkg85/10/2018Coronary artery diseaseCoronary artery spasm Osteoarthritis of left shoulder Resolved Problems ProblemNoted DateDiagnosed DateResolved DateEncounter for long-term (current) use of pgvkyznfncq46Pain of left hip joint Primary osteoarthritis of left hip Family History Medical HistoryRelationNameCommentsCancerFatherHeart diseaseMaternal Grandfather DiabetesMotherHeart diseaseMotherHypertensionMotherAnesthesia problemsNeg Hx Bleeding DisorderNeg HxClotting disorderNeg HxColon cancerNeg HxProstate cancer Neg HxStrokeNeg HxRelationNameStatusCommentsBrother 1AliveBrother 2AliveBrother 3AliveBrother 4AliveBrother 5AliveBrother 6AliveFatherDeceasedMaternal GrandfatherDeceasedMaternal GrandmotherDeceasedMotherAlivePaternal Grandfather DeceasedPaternal GrandmotherDeceasedSister 1AliveSister 2AliveSister 3Alive Social History Tobacco UseTypesPacks/DayYears UsedDateSmoking Tobacco: LokwtzGoeigvatlz60 11/26/1987 - 11/25/1994Smokeless Tobacco: FormerChew Tobacco Cessation:Counseling Given: No Alcohol UseStandard Drinks/WeekCommentsYes3 (1 standard drink = 0.6 oz pure alcohol)occasionallyChildcareAnswerDate OtbcmbzsScyvytfonLujtbqa20/12/2019 EmploymentAnswerDate SuxbzdocZysddpcpgrJzsupmi54/12/2019Purpose - LifeAnswerDate RecordedPurpose and direction in erkbFpobdud06/11/2021ex and Gender Information ValueDate RecordedSex Assigned at BirthNot on fileLegal NtnVlez2803/21/2015 11:41 AM EDTGender IdentityNot on fileSexual OrientationNot on file Last Filed Vital Signs Vital SignReadingTime TakenCommentsBlood Lvljxsjl266/7806/13/2021 4:46 PM EDT Emejs604306/13/2021 4:46 PM PYFGnvlvfsfyuw04.6 ??C (97.9 ??F)06/13/2021 4:46 PM EDTRespiratory Xqof7112 4:46 PM EDTOxygen Waxhieovpp65%06/13/2021 4:46 PM EDTInhaled Oxygen Concentration--Iuanld775.5 kg (237 lb)06/03/2022 11:06 AM YPZAytjmm011.8 cm (5' 10 )06/03/2022 11:06 AM EDTBody Mass Index34.011 11:06 AM EDT Plan of Treatment Health MaintenanceDue DateLast DoneCommentsStatin Use: Kgdvtjgugdboho1950 Depression Egbwdracc70/28/1963Tobacco Eolpdifuw37/28/1963DTaP,Tdap and Td Vaccines (1 - Tdap)1970Abdominal Aortic Aneurysm (AAA) Xkpgeo7804/12/2016 Fall Risk Htzrxejjz41/28/2016Adult BMI Jpjoesmdx15OVID-19 Vaccine ( season)505/11/2021, 06/09/2021, 10/21/2020, Additional history existsInfluenza Mwbetsg30/06/2021, 05/29/2020, 05/17/2020, Additional history existsZoster (Shingles) VaccineCompleted 07/30/2020, 05/28/2020 Goals GoalPatient Goal TypeAssociated ProblemsRecent ProgressPatient-Stated?Author Improve mobility Yessenia Farooq, RN Note: Evaluation of progress towards goal: Maximize work with PT at discharge to strengthen L shoulder Medical Devices ImplantedTypeAreaManufacturerDevice [facility] Expiration DateModel / Serial / LotCement Bn Bio 40gm Rpl [id number] - [id number] Implanted:Qty: 1 on 06/13/2021 by [facility]ak MD [facility]ementLeft: ShoulderZimmer [id number] / / [id number] Actb 52mm Hip 3 Hl Fin Pps - [id number] Implanted:Qty: 1 on 12/06/2017 by Raul Manzano MD at [facility] ImplantLeft: HipZimmer [id number] / / [id number] Actb G7 Ntrl E1 36mm E - [id number] Implanted:Qty: 1 on 12/06/2017 by Raul Manzano MD at [facility] ImplantLeft: HipZimmer [id number] / / [id number] Fem 107.5mm 133d 11 Hi Os - [id number] Implanted:Qty: 1 on 12/06/2017 by [facility]: HipZimmer [id number] / / [id number] Fem Opt -3mm Tpr Hip Blx D Rpl 650-1065 - [id number] Implanted:Qty: 1 on 12/06/2017 by [facility]: HipZimmer [id number] / / [id number] Fem 36mm Opt Shl Actb G7 Bl Rpl 650-4017 - [id number] Implanted:Qty: 1 on 12/06/2017 by Raul [facility] MD at [facility] ImplantLeft: HipZimmer Qplmfz82/13/[id number] / / [id number] Robert 4 4 Pg Dirk Aln Shldr Strl Lf - [id number] Implanted:Qty: 1 on 06/13/2021 by [facility] MD at [facility] ImplantLeft: ShoulderZimmer [id number] / / [id number] Robert Post Mdlr Aln Strl Lf - [id number] Implanted:Qty: 1 on 06/13/2021 by Abdon Novak MD at [facility] ImplantLeft: ShoulderZimmer [id number] / / [id number] Hum 83mm 10mm Cmprh Por Mn Shldr Rvrs Sys - [id number] Implanted:Qty: 1 on 06/13/2021 by [facility] MD [facility] ImplantLeft: ShoulderZimmer Tnmokt10/19/[id number] / / [id number] Hd Ti Std Tpr Cmprh Versa-Dial Hum Rvrs Shldr Sys - [id number] Implanted:Qty: 1 on 06/13/2021 by Abdon Novak MD at [facility] ImplantLeft: ShoulderZimmer Pynxns73/02/[id number] / / [id number] Hum 21mm 57mm 50mm Shldr Cmprh Versa-Dial Rpl [id number] - [id number] Implanted:Qty: 1 on 06/13/2021 by Abdon Novak MD at [facility] ImplantLeft: Shoulder Walter Xhvxjj42/21/[id number] / / [id number] Insurance * Guarantor: Brandon MccollumAccount TypeRelation to PatientDate of PhoneBilling AddressPersonal/RfwxpiQidi1950 [address] [address] Advance Directives * Full Code (Latest Code Status on File) Date ActivatedDate IwpihxclmkbZfdyrznr95/29/2021 10:58 AM06/13/2021 7:30 PM * Full Code Date ActivatedDate InactivatedComments12/06/2017 12:35 PM12/07/2017 4:08 PM Care Teams Team MemberRelationshipSpecialtyStart DateEnd Date Carlo Tran MD [facility] - Ozcurkn16/8/17
[2025-06-06 10:40] LABS: Hematocrit 34.8 % (42.0-54.0); Hemoglobin 11.6 g/dL (14.0-18.0); Immature Granulocytes Abs Auto 0.05 10^3/uL (0.00-0.03); Immature Granulocytes Pct Auto 0.7 % (0.0-0.5); Lymphocytes Absolute Auto 2.4 10^3/uL (1.2-3.8); Mean Corpuscular HGB Conc 33.3 g/dL (29.9-35.2); Mean Corpuscular Hemoglobin 30.4 pg (25.9-34.0); Mean Corpuscular Volume 91.1 fL (80.0-94.0); Platelet Count 209 10^3/uL (150-450); Red Blood Count 3.82 10^6/uL (4.70-6.10); White Blood Count 7.7 10^3/uL (4.0-11.0)
[2025-06-06 11:49] LABS: Alanine Aminotransferase 36 U/L (16-63); Albumin Globulin Ratio 1.1; Albumin Level 3.5 g/dL (3.4-5.0); Alkaline Phosphatase 37 U/L (46-116); Anion Gap 13.6; Aspartate Amino Transferase 34 U/L (15-37); Blood Urea Nitrogen 20.0 mg/dL (7.0-18.0); Calcium 8.8 mg/dL (8.5-10.1); Carbon Dioxide 24.0 mmol/L (21.0-32.0); Chloride 105 mmol/L (98-107); Estimated GFR (African America >60 (>=60 mL/min/1.73m^2); Estimated GFR (Non-African Ame 51 (>=60 mL/min/1.73m^2); Globulin 3.2 g/dL; Glucose 142 mg/dL (74-106); NT Pro B Type Natriuretic Pept 100.0 pg/mL (<=900.0); Potassium 4.6 mmol/L (3.5-5.1); Sodium 138 mmol/L (136-145); Total Protein 6.7 g/dL (6.4-8.2)
== END 2025-06-06 10:22 | disposition home or self-care (01) ==
LOC: LAB 10:26
PROVIDERS: PCP Family Medicine; Visit Provider Family Medicine
DX: R07.9 Chest pain, unspecified (principal); I50.30 Unspecified diastolic (congestive) heart failure
CPT/HCPCS: 36415; 80053; 83880; 84484; 85025